=== PATIENT | male | born 1945 | race Caucasian/White ===

== ENCOUNTER 2017-03-06 11:31 | Inpatient (IN) | payer MEDICARE, MEDICAID ==
[2017-03-06 11:38] VITALS: BMI 29.2
--- NOTE | 2017-03-06 12:02 | ED PDOC ---
HPI: Chest Pain Time Seen by Provider: 03/06/17 11:38 Chief Complaint (Nursing): Chest Pain Chief Complaint (Provider): CP History Per: Patient History/Exam Limitations: no limitations Onset/Duration Of Symptoms: Hrs (2) Current Symptoms Are (Timing): Gone Now Quality: Burning Associated Symptoms: denies: Nausea, Dyspnea, Diaphoresis, Syncope Nitro Therapy Administered: 1, Per EMS, Complete Relief Additional Complaint(s): Pt reports bilateral chest pain, "burning", radiates to back, relieved with ASA and SL Nitro administered by EMS. Also c/o chronic cough productive of yellow sputum. Denies fever, nausea, weakness. Past Medical History Reviewed: Nursing Documentation, Vital Signs Vital Signs: Last Vital Signs Temp 98.0 F 03/06/17 11:36 Pulse 84 03/06/17 11:36 Resp 16 03/06/17 11:36 BP 104/53 L 03/06/17 11:36 Pulse Ox 98 03/06/17 14:53 - Medical History PMH: Alzheimer's Disease, Arthritis, Asthma, Back Problems, CAD, COPD, Diabetes , Fractures, HTN, Hyperlipidemia, Sleep Apnea Denies: CHF, Hepatitis, HIV, Hypercholesterolemia, Hypothyroidism, Chronic Kidney Disease, Rheumatoid Arthritis, Seizures, Sexually Transmitted Disease - Surgical History Surgical History: Back Surgery (T-spine), CABG - Family History Family History: States: Unknown Family Hx - Immunization History Hx Influenza Vaccination: Yes - Home Medications Home Medications: Ambulatory Orders Medication Instructions Recorded Atorvastatin [Lipitor] 20 mg PO HS 11/29/16 Bisoprolol [Zebeta] 5 mg PO DAILY 11/29/16 Docusate [Colace] 200 mg PO DAILY PRN 11/29/16 Ergocalciferol (Vitamin D2) 50,000 unit PO MO 11/29/16 [Vitamin D2] Fenofibrate [Tricor] 145 mg PO DAILY 11/29/16 Fluticasone Nasal [Flonase] 2 spray NANCY BID PRN 11/29/16 Fluticasone/Vilanterol [Breo 1 puff IH DAILY 11/29/16 Ellipta 200-25 Mcg INH] Furosemide [Lasix] 20 mg PO DAILY 11/29/16 Montelukast [Singulair] 10 mg PO HS 11/29/16 predniSONE [predniSONE Tab] 5 mg PO BID 11/29/16 Ciprofloxacin [Cipro] 250 mg PO Q12 #14 tab 12/06/16 Doxycycline Monohydrate 100 mg PO BID #14 tablet 12/06/16 - Allergies Allergies/Adverse Reactions: Allergies Allergy/AdvReac Type Severity Reaction Status Date / Time Penicillins Allergy Unknown RASH Verified 03/06/17 11:40 SHAYAN Risk Score for UA/NSTEMI - SHAYAN Risk Score Age > 64: YES 3 or more CAD Risk Factors: YES Known CAD (Stenosis greater than 50%): YES Aspirin use in past 7 days: YES Severe Angina: NO EKG ST changes greater than 0.5mm: NO Positive Cardiac Marker: NO SHAYAN Score: 4 Risk %: 20% Curb-65 Severity Score - CURB-65 Severity Score Confusion: No Bun >19mg/dl (>7mmol/L): No Respiratory Rate greater than/equal to 30: No Systolic BP <90 or Diastolic BP less than/equal 60mmHg: No Age >64: Yes Curb-65 Score: 1 Percentage 30-day mortality: 2.7% Wells Criteria for PE - Wells Criteria for Pulmonary Embolism Clinical Signs and Symptoms of DVT: No P.E is #1 Diagnosis, or Equally Likely: No Heart Rate >100: No Previous, objectively diagnosed PE or DVT: No Hemoptysis: No Malignancy w/treatment within 6 months, or palliative: No Total Score: 0 Review of Systems Constitutional: Negative for: Fever, Chills Cardiovascular: Positive for: Chest Pain. Negative for: Palpitations Respiratory: Positive for: Cough, Sputum (Yellow). Negative for: Shortness of Breath, Pleuritic Pain, Wheezing Gastrointestinal: Negative for: Nausea, Vomiting, Abdominal Pain, Diarrhea Musculoskeletal: Positive for: Back Pain. Negative for: Neck Pain Neurological: Negative for: Weakness, Numbness, Headache Physical Exam - Reviewed Nursing Documentation Reviewed: Yes Vital Signs Reviewed: Yes - Physical Exam Appears: Positive for: Well, No Acute Distress Skin: Positive for: Normal Color, Warm, Dry Neck: Positive for: Normal Cardiovascular/Chest: Positive for: Regular Rate, Rhythm Respiratory: Positive for: Rales (R base). Negative for: Decreased Breath Sounds, Accessory Muscle Use, Stridor, Wheezing, Respiratory Distress Gastrointestinal/Abdominal: Positive for: Normal Exam Back: Positive for: Normal Inspection. 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 Negative for: Motor/Sensory Deficits, Facial Droop - Laboratory Results Result Diagrams: 03/06/17 12:35 03/06/17 12:35 - ECG Interpretation Of ECG: NSR @ 72, RBBB, TWI V3 (new). O2 Sat by Pulse Oximetry: 98 - Radiology X-Ray: Read By Radiologist (Bilateral interstitial infiltrates with minimal consolidation suggested at the left base. Findings appear to be unchanged from prior examination compatible chronic fibrosis. An acute component is not definitively excluded.) - Physician Consult Information Time Consulting Physican Contacted: 14:25 Physician Contacted: Geo Whitmore Outcome Of Conversation: Agrees with admission, recommends Lovenox, CT chest to r/o PE. Medical Decision Making Medical Decision Makin yo with bilateral chest pain. - labs - EKG - CXR Disposition - Clinical Impression Clinical Impression: Chest pain - Patient ED Disposition Is Patient to be Admitted: Yes - Disposition Disposition Time: 15:00 Condition: STABLE - Pt Status Changed To: Hospital Disposition Of: Inpatient - Admit Certification Admit to Inpatient:: After my assessment, the patient will require hospitalization for at least two midnights. This is because of the severity of symptoms shown, intensity of services needed, and/or the medical risk in this patient being treated as an outpatient. - POA Present On Arrival: None
[2017-03-06 12:45] LABS: BASO % 0.5 % (0.0-2.0); EOS % 0.4 % (0.0-4.0); HEMATOCRIT 33.4 % (35.0-51.0); LYMPH # 1.8 K/uL (1.0-4.3); LYMPH % 20.5 % (20.0-40.0); MEAN CELL VOLUME 92.7 fl (80.0-94.0); MEAN CORPUSCULAR HEMOGLOBIN 30.4 pg (27.0-31.0); MEAN CORPUSCULAR HGB CONC 32.8 g/dL (33.0-37.0); MEAN PLATELET VOLUME 8.3 fl (7.2-11.7); MONO # 0.6 K/uL (0.0-0.8); NEUT # 6.4 K/uL (1.8-7.0); NEUT % 71.6 % (50.0-75.0); NRBC % 0.1 % (0.0-0.0); RED CELL DISTRIBUTION WIDTH 17.6 % (11.5-14.5); WHITE BLOOD COUNT 8.9 K/uL (4.8-10.8)
[2017-03-06 12:56] LABS: ALB/GLOB RATIO 0.9 (1.0-2.1); ALKALINE PHOSPHATASE 44 U/L (38-126); ALT/SGPT 29 U/L (21-72); AST/SGOT 32 U/L (17-59); BILIRUBIN,TOTAL 0.3 mg/dl (0.2-1.3); BLOOD UREA NITROGEN 20 mg/dl (9-20); CALCIUM 9.3 mg/dL (8.4-10.2); CARBON DIOXIDE 29 mmol/L (22-30); CHLORIDE 102 mmol/L (98-107); GFR AFRICAN-AMERICAN > 60; GLUCOSE,RANDOM 109 mg/dL (75-110); POTASSIUM 3.8 MMOL/L (3.6-5.0); SODIUM 139 mmol/l (132-148); TOTAL PROTEIN 6.2 G/DL (6.3-8.2)
[2017-03-06 12:57] LABS: VENOUS BLOOD GAS BASE EXCESS 9.7 mmol/L (0.0-2.0); VENOUS BLOOD GAS PCO2 53 mmHg (40-60); VENOUS BLOOD PH 7.43 (7.32-7.43)
[2017-03-06 13:39] LABS: PARTIAL THROMBOPLASTIN TIME 29.4 SECONDS (23.3-32.5)
[2017-03-06] MEDS ORDERED: Enoxaparin 80 mg Syringe SC STA (14:21)
--- NOTE | 2017-03-06 14:32 | RAD ---
HISTORY: CP COMPARISON: 12/06/2016 FINDINGS: LUNGS: Bilateral interstitial infiltrates with minimal consolidation suggested at the left base. Findings appear to be unchanged from prior examination compatible chronic fibrosis. PLEURA: No significant pleural effusion identified, no pneumothorax apparent. CARDIOVASCULAR: Normal. OSSEOUS STRUCTURES: No significant abnormalities. VISUALIZED UPPER ABDOMEN: Normal. OTHER FINDINGS: Status post spinal surgery. IMPRESSION: Bilateral interstitial infiltrates with minimal consolidation suggested at the left base. Findings appear to be unchanged from prior examination compatible chronic fibrosis. An acute component is not definitively excluded.
[2017-03-06] MEDS ORDERED: Enoxaparin 40 mg Syringe SC SCH (15:45)
[2017-03-06] MEDS ORDERED: Sodium Chloride 0.9% 100 ML ONE (16:15)
[2017-03-06] MEDS ORDERED: Iodixanol 320 MG/ML 100 ML BOTTLE IV ONE (16:15)
[2017-03-06 17:02] LABS: RBC URINE 4 /hpf (0-3); URINE BACTERIA RARE (<OCC); URINE BILIRUBIN NEGATIVE (NEGATIVE); URINE BLOOD NEGATIVE (NEGATIVE); URINE COLOR YELLOW (YELLOW); URINE GLUCOSE (UA) NEG (Normal); URINE KETONE NEGATIVE (NEGATIVE); URINE LEUKOCYTE ESTERASE NEG Leu/uL (Negative); URINE PROTEIN 30 mg/dL (NEGATIVE); URINE UROBILINOGEN 0.2-1.0 mg/dL (0.2-1.0); WBC URINE 5 /hpf (0-5)
--- NOTE | 2017-03-06 17:02 | CT ---
PROCEDURE: CT Chest with contrast (Pulmonary Angiogram) HISTORY: CP COMPARISON: None available. TECHNIQUE: Axial computed tomography images were obtained of the chest in the pulmonary arterial phase of enhancement. Coronal and sagittal reformatted images were created and reviewed. Intravenous contrast dose: Radiation dose: Total exam DLP = mGy-cm. This CT exam was performed using one or more of the following dose reduction techniques: Automated exposure control, adjustment of the mA and/or kV according to patient size, and/or use of iterative reconstruction technique. Intravenous contrast dose: 100 cc of Omnipaque 300 Radiation dose: Total exam DLP = 621 mGy-cm. FINDINGS: PULMONARY ARTERIES: Unremarkable. No pulmonary embolism. AORTA: No acute findings. No thoracic aortic aneurysm. LUNGS: Small bibasilar infiltrates, right greater than left. Diffuse bilateral interstitial fibrotic change. Elevated right hemidiaphragm. PLEURAL SPACES: Unremarkable. No effusion or pneuomothorax. HEART: Unremarkable. No cardiomegaly. No significant pericardial effusion. LYMPH NODES: No lymphadenopathy. BONES, CHEST WALL: Unremarkable. No fracture or destructive lesion OTHER FINDINGS: Unremarkable. IMPRESSION: Small bibasilar infiltrates. No evidence of pulmonary embolism.
[2017-03-06] MEDS ORDERED: LACTULOSE PO PRN (23:26)
[2017-03-07] MEDS ORDERED: Patient's Own Med (Fluticasone/Vilanterol [Breo Ellipta 200-25 Mcg Inh] 1 PUFF) IH SCH (09:00)
[2017-03-07] MEDS: Insulin Lispro (humaLOG) 100 Units/ml Inj SC SCH ×2 (09:06→17:02)
[2017-03-07] MEDS: Fluticasone-Salmeterol 250-50mcg Diskus IH SCH ×2 (09:08→21:20)
[2017-03-07] MEDS: Lidocaine 5% Patch TD SCH (09:10)
[2017-03-07] MEDS: Enoxaparin 80 mg Syringe SC SCH ×2 (10:16→21:00)
[2017-03-07] MEDS: levoFLOXacin 500 mg in D5W 500 MG/100 ML BAG IVPB SCH (12:37)
[2017-03-07] MEDS: Azithromycin 500 MG in Sodium Chloride 0.9% 250 ML IVPB SCH (12:38)
--- NOTE | 2017-03-07 14:39 | CON ---
DATE: 03/07/2017 REASON FOR CONSULTATION: Acute myocardial infarction. HISTORY OF PRESENT ILLNESS: The patient is 71 years old, male, originally from [place] who has a hist ory of chronic obstructive lung disease, history of coronary artery disease status post coronary bypa ss surgery in 2010 at [facility]. The patient also had thoracic spinal surgery about a y ear ago for spinal fracture. The patient presented because of retrosternal chest pain that is burnin g in nature, diffuse across the chest and radiating to the back. The patient is experiencing product milka cough. He denies any associated diaphoresis. The patient stated that chest pain was resolved af ter the ambulance gave the patient sublingual nitroglycerin. SOCIAL HISTORY: The patient is a former smoker and he is an occasional drinker. , lives with his . MEDICATIONS: Advair 1 puff twice a day, aspirin 81 mg once a day, Zithromax 500 mg intravenously david ly, lactulose 20 mg p.o. at bedtime, Flonase 2 sprays nasally b.i.d. p.r.n., Lasix 20 mg p.o. once a day, Levaquin 500 mg intravenously daily, Lipitor 20 mg once a day, Plavix 75 mg once a day, Lovenox 80 mg subcutaneously twice a day, Tricor 145 mg once a day, Singulair 10 mg at bedtime, Zebeta 5 mg o nce a day. REVIEW OF SYSTEMS: No fever or chills. No vomiting or diarrhea. No dizziness or syncope. The sigrid ent moves around with help of a walker. PHYSICAL EXAMINATION: GENERAL: The patient is an elderly male who does not appear to be in any acute distress. VITAL SIGNS: Blood pressure 96/56, heart rate 88, temperature 98.7, respiration 18. HEENT: Normocephalic. NECK: No JVD. CHEST: Bilateral rhonchi. HEART: S1, S2 regular. ABDOMEN: Soft. EXTREMITIES: No edema. EKG reveals sinus rhythm, right bundle branch block, consider old anterior wall myocardial infarction . LABORATORY DATA: Hemoglobin and hematocrit 11 and 33.4. White count and platelet count are within n ormal limits. SMA-7 on admission was completely normal. Troponins were 0.051, 1.72 and 1.78. PT, P TT are within normal limits. Chest CT angio revealed no evidence of pulmonary embolus. Small bibasi lar infiltrate. Chest x-ray revealed prominent bronchovascular markings with mild cardiomegaly. ASSESSMENT: 1. Consider non-ST elevation myocardial infarction. 2. Chronic obstructive lung disease. 3. History of spinal surgery for recent spinal fracture. 4. Hypertension and diabetes mellitus. RECOMMENDATIONS: Continue IV Zithromax and IV Levaquin. Continue aspirin, Plavix and therapeutic dyer bcutaneous Lovenox. Continue Lipitor and Tricor. Continue current bronchodilators. The case was di scussed with the patient. 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 Lopez. The patient declined this idea at this time; however, I asked him to think about it a s he thinks that he can go home now. The case was discussed earlier with Dr. Wood and will be furth er discussed later on. Geo Whitmore MD cc: [id number] TT: 03/07/2017 14:38:49 Confirmation # [id number] Dictation # [id number]
[2017-03-07] MEDS ORDERED: Enoxaparin 40 mg Syringe SC SCH (15:45)
--- NOTE | 2017-03-07 23:15 | HP ---
HISTORY OF PRESENT ILLNESS: This is a 71-year-old [place] male with history of multiple medical pr oblems including coronary artery disease status post coronary artery bypass graft about 7 years ago. The patient presented to Emergency Room with burning like chest pain for 1 day duration. The patien t was evaluated in the Emergency Room and admitted for further management. The patient admits that paul rome has also associated shortness of breath with his symptoms. The patient had no cardiac events since he had his coronary artery bypass graft. OTHER REVIEW OF SYSTEMS: The patient has bilateral knee pain and back pain and unsteadiness. SOCIAL HISTORY: Positive history of smoking more than 30 years. No ETOH or substance abuse. FAMILY HISTORY: Noncontributory. PAST MEDICAL HISTORY: Advanced rheumatoid arthritis, hypertension, coronary artery disease, type 2 d iabetes mellitus. HOME MEDICATIONS: Include Singulair 10 mg daily, Lasix 20 mg daily, prednisone 5 mg twice a day, fe nofibrate 145 mg daily, ergocalciferol 50,000 units every week, bisoprolol 5 mg daily, Fosamax 70 mg every week. PHYSICAL EXAMINATION: GENERAL: The patient is not in any cardiopulmonary distress at the time of this examination. VITAL SIGNS: Blood pressure of 102/67, temperature 98.0, respiratory rate 20 and pulse is 81. HEENT: Pupils equal, reactive to light. Normal-appearing mucosa of the conjunctivae, oropharyngeal and nasal membrane mucosa. NECK: Supple, no JVD, no carotid bruit, no lymph node, no thyromegaly. CHEST AND LUNGS: Bilateral symmetrical expansion, good air exchange, no rales, no rhonchi. CARDIOVASCULAR: PMI not localized. S1, S2. No additional sounds. ABDOMEN: Normoactive bowel sounds, no tenderness, no organomegaly, no masses. EXTREMITIES: No cyanosis, no clubbing, no edema. CENTRAL NERVOUS SYSTEM: Alert, awake, oriented x 2. No neurological deficits could be appreciated. ASSESSMENT: 1. Chest pain with positive troponin for non-ST elevation myocardial infarction. 2. Rheumatoid arthritis. 3. Hypertension. PLAN: Continue current medications and cardiology consultation and follow recommendations and resume the patient's home medications. Continue aspirin and beta klever. Michaela Wood MD cc: [phone] TT: 03/07/2017 23:14:29 ln
[2017-03-07] MEDS ORDERED: Ergocalciferol 50,000 Intl Units Cap PO SCH (23:26)
[2017-03-08 06:36] LABS: HEMATOCRIT 30.6 % (35.0-51.0); MEAN CELL VOLUME 93.2 fl (80.0-94.0); MEAN CORPUSCULAR HEMOGLOBIN 30.2 pg (27.0-31.0); MEAN CORPUSCULAR HGB CONC 32.4 g/dL (33.0-37.0); RED CELL DISTRIBUTION WIDTH 17.8 % (11.5-14.5); WHITE BLOOD COUNT 7.8 K/uL (4.8-10.8)
[2017-03-08 06:50] LABS: BLOOD UREA NITROGEN 18 mg/dl (9-20); CALCIUM 8.9 mg/dL (8.4-10.2); CARBON DIOXIDE 30 mmol/L (22-30); CHLORIDE 101 mmol/L (98-107); GFR AFRICAN-AMERICAN > 60; GLUCOSE,RANDOM 86 mg/dL (75-110); POTASSIUM 4.1 MMOL/L (3.6-5.0); SODIUM 138 mmol/l (132-148)
--- NOTE | 2017-03-08 07:35 | CARD ---
APPROVED REPORT EKG Measurement Heart [id number] <Conclusion> Normal sinus rhythm Right bundle branch block Inferior infarct, age undetermined Abnormal ECG
[2017-03-08] MEDS: Insulin Lispro (humaLOG) 100 Units/ml Inj SC SCH ×2 (08:31→17:16)
[2017-03-08] MEDS: Fluticasone-Salmeterol 250-50mcg Diskus IH SCH ×2 (08:45→21:51)
[2017-03-08] MEDS: Lidocaine 5% Patch TD SCH (08:46)
[2017-03-08] MEDS: Enoxaparin 80 mg Syringe SC SCH ×2 (08:47→21:50)
[2017-03-08] MEDS: Azithromycin 500 MG in Sodium Chloride 0.9% 250 ML IVPB SCH (08:51)
[2017-03-08] MEDS: levoFLOXacin 500 mg in D5W 500 MG/100 ML BAG IVPB SCH (08:53)
--- NOTE | 2017-03-08 09:21 | PQF GENQUE ---
Dr. Wood, Diagnosis to go along with the use of levofloxacin: IV? OR: Other explanation of clinical finding ER note; hx. of COPD: Respiratory: Positive for: Cough, Sputum (Yellow); Negative for: Shortness of Breath, Pleuritic Pain, Wheezing Cardiology consult: diagnoses include: COPD levofloxacin IV ordered on 03/07/17 U/A: RBC , WBC, Squamous Epith Cells, Bacteria. Hyaline Casts Blood Culture: prelim: after 24 hours: no growth CXR: Impression: Bilateral interstitial infiltrates with minimal consolidation suggested at the left base. Findings appear to be unchanged from prior examination compatible chronic fibrosis. An acute component is not definitively exclud This form is a permanent part of the medical record Clarification of your documentation is requested to better reflect the severity of illness and intensity of treatment of your patient. Indicators present [] Specify: [] [] Specify: [] [] Specify: [] [] Specify: [] Location in the medical record that reflects the above clinical findings: [] Treatment Provided: [] PHYSICIAN'S RESPONSE Based on your medical judgment of the clinical indicators outlined above please clarify the following: [] Practitioner response [] If unable to determine, please check the box, sign and date. Present On Admission (POA) Indicator: [] Present at the time of admission [] Not present at the time of admission [] Clinically Undetermined In responding to this query, please exercise your independent professional judgment. The fact that a question is asked does not imply that any particular answer is desired or expected. Thank you for your clarification on this documentation. If you have any questions please call. Tamela Sotelo RN BSN ext. #[phone] COPD PNEUMONIA MTDD
--- NOTE | 2017-03-08 10:28 | CARD ---
APPROVED REPORT EXAM: Two-dimensional and M-mode echocardiogram with Doppler and color Doppler. Other Information Quality : GoodRhythm : NSR Technically limited study due to Limited Window INDICATION Chest Pain Surgery/Intervention CABD DIMENSIONS IVSd0.89 (0.7-1.1cm)LVDd3.65 (3.9-5.9cm) LVOT Diameter2.59 (1.8-2.4cm)PWd1.17 (0.7-1.1cm) IVSs1.23 (0.8-1.2cm)LVDs3.24 (2.5-4.0cm) FS (%) 11.3 %PWs1.36 (0.8-1.2cm) M-Mode DIMENSIONS Left Atrium (MM)4.49 (2.5-4.0cm)IVSd1.25 (0.7-1.1cm) Aortic Root3.79 (2.2-3.7cm)LVDd6.03 (4.0-5.6cm) Aortic Cusp Exc.1.95 (1.5-2.0cm)PWd1.07 (0.7-1.1cm) IVSs1.84 cmFS (%) 49 % LVDs3.05 (2.0-3.8cm)PWs1.65 cm Mitral Valve E/A ratio0.0 TDI E/Lateral E'0.0E/Medial E'0.0 LEFT VENTRICLE The left ventricle is normal size. There is normal left ventricular wall thickness. The left ventricular function is normal. The left ventricular ejection fraction is within the normal range. The Ejection Fraction is 65-70%. The left ventricular function is normal. The left ventricular ejection fraction is within the normal range. There is normal LV segmental wall motion. The left ventricular diastolic function is normal. No left ventricle thrombus noted on this study. There is no mass noted in the left ventricle. RIGHT VENTRICLE The right ventricle is normal size. There is normal right ventricular wall thickness. The right ventricular systolic function is normal. ATRIA The left atrium size is normal. The right atrium size is normal. The interatrial septum is intact with no evidence for an atrial septal defect. AORTIC VALVE The aortic valve is normal in structure and function. No aortic regurgitation is present. There is no aortic valvular stenosis. There is no aortic valvular vegetation. MITRAL VALVE The mitral valve is normal in structure and function. There is no evidence of mitral valve prolapse. There is no mitral valve stenosis. There is no mitral valve regurgitation noted. TRICUSPID VALVE The tricuspid valve is normal in structure and function. There is no tricuspid valve regurgitation noted. There is no tricuspid valve prolapse or vegetation. There is no tricuspid valve stenosis. PULMONIC VALVE The pulmonary valve is normal in structure and function. There is no pulmonic valvular regurgitation. There is no pulmonic valvular stenosis. GREAT VESSELS The aortic root is normal in size. The IVC is normal in size and collapses >50% with inspiration. PERICARDIAL EFFUSION The pericardium appears normal. There is no pleural effusion. <Conclusion> The left ventricle is normal size. The left ventricular function is normal. The left ventricular ejection fraction is within the normal range. The Ejection Fraction is 65-70%. e.
--- NOTE | 2017-03-08 13:49 | PN ---
DATE: 03/08/2017 The patient denied any chest pain. No reported ventricular arrhythmia. PHYSICAL EXAMINATION: VITAL SIGNS: Blood pressure 97/60, heart rate 76, temperature 97.8, respirations 18. HEENT: Normocephalic. NECK: No JVD. CHEST: Minimal rhonchi. HEART: S1, S2 regular. EXTREMITIES: No edema. LABORATORIES: Hemoglobin and hematocrit 9.9 and 30.6. White count and platelet count are within nor mal limit. Today's SMA-7 is entirely within normal limit. The latest troponin yesterday was 1.5. E chocardiograph study performed yesterday revealed ejection fraction in the range of 65% to 70%. ASSESSMENT: 1. Chest pain, consider non-ST elevation myocardial infarction. 2. Chronic obstructive lung disease. 3. History of recent ____ spine surgery. 4. Diabetes mellitus. RECOMMENDATIONS: Continue current aspirin, Plavix, Lipitor, Tricor and Zebeta therapy. The patient refused idea of cardiac catheterization and that was affirmed with the primary physician, Dr. Wood. Geo Whitmore MD cc: [id number] TT: 03/08/2017 13:48:09 Confirmation # [id number] Dictation # [id number]
[2017-03-09 08:13] VITALS: RESP 18
[2017-03-09] MEDS: Insulin Lispro (humaLOG) 100 Units/ml Inj SC SCH (09:00)
[2017-03-09] MEDS: Azithromycin 500 MG in Sodium Chloride 0.9% 250 ML IVPB SCH (09:50)
[2017-03-09] MEDS: Lidocaine 5% Patch TD SCH (09:52)
[2017-03-09] MEDS: levoFLOXacin 500 mg in D5W 500 MG/100 ML BAG IVPB SCH (09:52)
[2017-03-09] MEDS: Enoxaparin 80 mg Syringe SC SCH (09:58)
[2017-03-09] MEDS: Fluticasone-Salmeterol 250-50mcg Diskus IH SCH (10:20)
[2017-03-09 12:37] VITALS: BP 97/61; PULSE 76; TEMP 97.9; O2SAT 97
--- NOTE | 2017-03-09 15:04 | PN ---
DATE: 03/09/2017 SUBJECTIVE: The patient denies any chest pain or shortness of breath. PHYSICAL EXAMINATION: VITAL SIGNS: Blood pressure 97/61, heart rate 76, temperature 97.9, respirations 18. HEENT: Normocephalic. NECK: No JVD. CHEST: Bilateral rhonchi. HEART: S1, S2 regular. EXTREMITIES: No edema. LABORATORIES: Today's troponin is 1.19 and today sugar is 120. ASSESSMENT: 1. Status post non-ST elevation myocardial infarction. 2. Coronary artery disease, status post coronary artery bypass surgery. 3. Chronic obstructive lung disease. 4. Diabetes mellitus. RECOMMENDATIONS: Continue current Lipitor at 20 mg once a day, Plavix 75 mg once a day, aspirin 81 m g once a day, Zebeta 5 mg once a day, Tricor 145 mg once a day. The patient still refuses cardiac ca theterization. The patient can be discharged on current medical management. Geo Whitmore MD cc: [id number] TT: 03/09/2017 15:03:36 Confirmation # [id number] Dictation # [id number]
[2017-03-13] MEDS ORDERED: ABATACEPT 125 MG SC SCH (09:00)
--- NOTE | 2017-03-14 21:30 | DS ---
REASON FOR ADMISSION: This is a 71-year-old [place] male with history of multiple medical problems who was admitted for non-ST elevation myocardial infarction. COURSE OF HOSPITALIZATION: The patient was admitted to telemetry floor and the troponin was elevated to 1.7. The patient had cardiology consultation done by Dr. Whitmore. The patient was offered car diac catheterization, but he refused. The patient was continued on medical therapy including double antiplatelet therapy and beta klever. The patient's troponin eventually came down and the patient w as free of chest pain and so was discharged home to follow up with Dr. Whitmore as well as with Dr. Wood in 1 week. FINAL DIAGNOSES: 1. Non-ST elevation myocardial infarction. 2. Advanced rheumatoid arthritis. 3. Hypertension. [facility] V[facility] Wood MD cc: [phone] TT: 03/14/2017 21:30:20 ks
== END 2017-03-09 15:15 | disposition home or self-care (01) | DRG 280 ==
LOC: H.ER 11:31 → H.ERHOLD 14:24 → H.TEL 18:04
PROVIDERS: ADMIT Internal Medicine; ATTEND Internal Medicine
DX: I21.4 Non-ST elevation (NSTEMI) myocardial infarction (principal); J18.9 Pneumonia, unspecified organism; J44.9 Chronic obstructive pulmonary disease, unspecified; G30.9 Alzheimer's disease, unspecified; F02.80 Dementia in other diseases classified elsewhere, unspecified severity, without behavioral disturbance, psychotic disturbance, mood disturbance, and anxiety; E11.9 Type 2 diabetes mellitus without complications; I25.10 Atherosclerotic heart disease of native coronary artery without angina pectoris; I10 Essential (primary) hypertension; E78.5 Hyperlipidemia, unspecified; G47.30 Sleep apnea, unspecified; J45.909 Unspecified asthma, uncomplicated; Z95.1 Presence of aortocoronary bypass graft; M06.9 Rheumatoid arthritis, unspecified; Z87.891 Personal history of nicotine dependence

== ENCOUNTER 2018-06-09 17:43 | Inpatient (IN) | payer OTHER, MEDICAID ==
[2018-06-09 18:44] VITALS: BMI 25.9
[2018-06-10] MEDS: Albuterol-Ipratrop 3 mg / 0.5 (3 ml) UD INH SCH ×7 (00:20→23:26)
[2018-06-10] MEDS ORDERED: ZEBETA 5 MG PO SCH (09:00)
[2018-06-10] MEDS ORDERED: PREDNISONE 5 MG PO SCH (09:00)
[2018-06-10] MEDS ORDERED: COLACE 100 MG PO SCH (09:00)
[2018-06-10] MEDS ORDERED: TRICOR 145 MG PO SCH (09:00)
[2018-06-10] MEDS: Pantoprazole 20 mg EC Tab PO SCH (09:20)
[2018-06-10] MEDS: Azithromycin 500 MG in Sodium Chloride 0.9% 250 ML IVPB SCH (10:38)
--- NOTE | 2018-06-10 22:20 | HP ---
Copied To: Michaela Wood MD Attending MD: Michaela Wood MD HISTORY OF PRESENT ILLNESS: This is a 72-year-old [place] male with history of multiple medical problems, was in [facility] for exacerbation of chronic obstructive pulmonary disease and pneumonia. Patient has advanced rheumatoid arthritis and osteoarthritis and he is very limited in his mobility with a walker. Patient was started on physical therapy and he was transferred to transitional care unit at [facility] for deconditioning, physical therapy, occupational therapy, and completion of his treatment. Other review of systems is generalized weakness. ALLERGIES: POSITIVE ALLERGY TO PENICILLIN. MEDICATIONS: Were reviewed as per MAR PAST MEDICAL HISTORY: Advanced rheumatoid arthritis, osteoarthritis, hypertension, and coronary artery disease, status post coronary artery bypass graft. SOCIAL HISTORY: Ex-smoker. No EtOH or substance abuse. FAMILY HISTORY: Noncontributory. PHYSICAL EXAMINATION: GENERAL: Patient is in bed, not in any cardiopulmonary distress at the time of this exam. VITAL SIGNS: With blood pressure 110/65, temperature 98, respiratory rate 20, and pulse 77. HEENT: Pupils equal and reactive to light. Normal appearing mucosa of the conjunctivae, oropharynx, and nasal membrane mucosa. NECK: Supple. No JVD. No carotid bruit. No lymph node. No thyromegaly. CHEST AND LUNGS: Bilateral symmetrical expansion. Decreased air entry both lower lung amos. CARDIOVASCULAR SYSTEM: PMI not localized. S1, S2. No additional sounds. ABDOMEN: Normoactive bowel sounds. No tenderness. No organomegaly. No masses. EXTREMITIES: No cyanosis. No clubbing. No edema. 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 Patient is moving all extremities equally. ASSESSMENT: Exacerbation of chronic obstructive pulmonary disease, pneumonia, advanced rheumatoid arthritis, osteoarthritis, coronary artery disease, and status post frequent falls. PLAN: Continue current medications, physical therapy, and occupational therapy. Taper down steroids. Michaela Wood MD
[2018-06-11] MEDS: Albuterol-Ipratrop 3 mg / 0.5 (3 ml) UD INH SCH ×6 (04:07→23:50)
[2018-06-11] MEDS: Pantoprazole 20 mg EC Tab PO SCH (08:37)
[2018-06-11] MEDS: Azithromycin 500 MG in Sodium Chloride 0.9% 250 ML IVPB SCH (09:55)
[2018-06-12] MEDS: Albuterol-Ipratrop 3 mg / 0.5 (3 ml) UD INH SCH ×6 (04:47→23:39)
[2018-06-12] MEDS: Pantoprazole 20 mg EC Tab PO SCH (10:00)
[2018-06-12] MEDS: Azithromycin 500 MG in Sodium Chloride 0.9% 250 ML IVPB SCH (10:06)
--- NOTE | 2018-06-12 12:39 | CP.PCM.CON ---
History of Present Illness - History of Present Illness History of Present Illness: Pulmonology saw the patient and examined on rounds with the residents this morning. Pt is an 72 yo M with a hx of COPD exacerbation, interstitial lung disease, Rheumatoid arthritis, HTN, s/p CABG transferred from [facility] [place] for COPD/ possible pneumonia, here to complete physical therapy. Patient is doing well this morning sitting in a wheelchair, states his SOB has improved, and still has a cough with whitish/yellow sputum he is currently on 4 L nasal cannula. Vital signs remained stable BP 101/49, he is afebrile. His O2 Sat is 90. On examination patient has shallow breathing, B/L rhonchi and crackles heard, negative for B/L wheezing, negative for Pneumonia, no bronchial breathing or egophony appreciated, diminishes breath sounds B/L. Continue PT, monitor SOB and COPD, continue to taper steroids. Past Patient History - Infectious Disease Hx of Infectious Diseases: None - Past Medical History & Family History Past Medical History?: Yes - Past Social History Smoking Status: Former Smoker - CARDIAC Hx Congestive Heart Failure: No Hx Hypercholesterolemia: Yes Hx Hypertension: Yes - PULMONARY Hx Chronic Obstructive Pulmonary Disease (COPD): Yes - NEUROLOGICAL Hx Alzheimer's Disease: Yes Hx Seizures: No - HEENT Hx HEENT Problems: No - RENAL Hx Chronic Kidney Disease: No - ENDOCRINE/METABOLIC Hx Hypothyroidism: No - HEMATOLOGICAL/ONCOLOGICAL Hx AIDS: No Hx Human Immunodeficiency Virus (HIV): No - INTEGUMENTARY Hx Dermatological Problems: No - MUSCULOSKELETAL/RHEUMATOLOGICAL Hx Falls: Yes - GASTROINTESTINAL Hx Gastrointestinal Disorders: No - GENITOURINARY/GYNECOLOGICAL Hx Sexually Transmitted Disorders: No - PSYCHIATRIC Hx Substance Use: No - SURGICAL HISTORY Hx Coronary Artery Bypass Graft: Yes (1999) Hx Coronary Stent: Yes - ANESTHESIA Hx Anesthesia: Yes Hx Anesthesia Reactions: No Hx Malignant Hyperthermia: No Meds Allergies/Adverse Reactions: Allergies Allergy/AdvReac Type Severity Reaction Status Date / Time Penicillins Allergy Unknown RASH Verified 06/09/18 19:57 - Medications Medications: Current Medications Acetaminophen (Tylenol 325mg Tab) 650 mg PO Q6 PRN PRN Reason: Headache Last Admin: 06/11/18 12:30 Dose: 650 mg Albuterol/Ipratropium (Duoneb 3 Mg/0.5 Mg (3 Ml) Ud) 3 ml INH RQ4 [facility] Last Admin: 06/12/18 11:09 Dose: 3 ml Atorvastatin Calcium (Lipitor) 20 mg PO [facility] Last Admin: 06/11/18 22:13 Dose: 20 mg Bisoprolol Fumarate (Zebeta) 5 mg PO DAILY [facility] Last Admin: 06/12/18 10:00 Dose: 5 mg Calcium Carbonate (Oscal) 500 mg PO DAILY [facility] Last Admin: 06/12/18 10:00 Dose: 500 mg Clopidogrel Bisulfate (Plavix) 75 mg PO DAILY [facility] Last Admin: 06/12/18 10:00 Dose: 75 mg Docusate Sodium (Colace) 100 mg PO DAILY [facility] Last Admin: 06/12/18 10:01 Dose: 100 mg Fenofibrate (Tricor) 145 mg PO DAILY [facility] Last Admin: 06/12/18 10:00 Dose: 145 mg Hydroxychloroquine Sulfate (Plaquenil) 200 mg PO BID [facility] PRN Reason: Protocol Last Admin: 06/12/18 10:00 Dose: 200 mg Azithromycin 500 mg/ Sodium (Chloride) 250 mls @ 250 mls/hr IVPB DAILY@0500 [facility] PRN Reason: Protocol Ceftriaxone Sodium 1 gm/ (Sodium Chloride) 100 mls @ 100 mls/hr IVPB Q12@0500, 1700 [facility] PRN Reason: Protocol Lactulose (Enulose) 20 gm PO Q4H PRN PRN Reason: Constipation Last Admin: 06/10/18 17:03 Dose: 20 gm Montelukast Sodium (Singulair) 10 mg PO [facility] Last Admin: 06/11/18 22:13 Dose: 10 mg Pantoprazole Sodium (Protonix Ec Tab) 20 mg PO DAILY [facility] Last Admin: 06/12/18 10:00 Dose: 20 mg Prednisone (Prednisone Tab) 40 mg PO DAILY [facility] Stop: 06/13/18 09:01 Last Admin: 06/12/18 10:01 Dose: 40 mg Prednisone (Prednisone Tab) 10 mg PO DAILY [facility] Tamsulosin HCl (Flomax) 0.4 mg PO DAILY [facility] Last Admin: 06/12/18 10:00 Dose: 0.4 mg Results - Vital Signs Recent Vital Signs: Last Vital Signs Temp 97.5 F L 06/12/18 09:04 Pulse 62 06/12/18 09:04 Resp 20 06/12/18 09:04 BP 101/49 L 06/12/18 09:04 Pulse Ox 90 L 06/12/18 09:04
--- NOTE | 2018-06-12 16:13 | PN ---
Copied To: Michaela Wood MD Attending MD: Michaela Wood MD DATE: 06/12/2018 SUBJECTIVE: The patient is seen today on 06/12/2018. He is not in any cardiopulmonary distress, and he is compliant to physical therapy and occupational therapy. PHYSICAL EXAMINATION: VITAL SIGNS: Blood pressure is 101/49, temperature 97.5, respiratory rate 20, and pulse 62. HEENT: Pupils equal and reactive to light. Normal-appearing mucosa of the conjunctivae, oropharynx and nasal membrane mucosa. NECK: Supple. No JVD. No carotid bruit. No lymph node. No thyromegaly. CHEST AND LUNGS: Bilateral symmetrical expansion. Good air exchange. No rales. No rhonchi. CARDIOVASCULAR SYSTEM: PMI not localized. S1 and S2. No additional sounds. ABDOMEN: Normoactive bowel sounds. No tenderness. No organomegaly. No masses. EXTREMITIES: No cyanosis, no clubbing, no edema. 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 Moves all extremities equally. ASSESSMENT: Chronic obstructive pulmonary disease, pneumonia, advanced rheumatoid arthritis, osteoarthritis, hypertension, coronary artery disease, status post coronary artery bypass graft. PLAN: Continue current medications and physical therapy and occupational therapy and follow recommendations of acid bleacher. Michaela Wood MD
[2018-06-13] MEDS: Albuterol-Ipratrop 3 mg / 0.5 (3 ml) UD INH SCH ×6 (04:56→23:12)
[2018-06-13] MEDS ORDERED: Azithromycin 500 MG in Sodium Chloride 0.9% 250 ML IVPB SCH (05:00)
[2018-06-13] MEDS: Pantoprazole 20 mg EC Tab PO SCH (09:30)
[2018-06-13] MEDS: Azithromycin 500 MG in Sodium Chloride 0.9% 250 ML IVPB SCH (18:09)
--- NOTE | 2018-06-13 21:05 | CP.PCM.PN ---
Subjective - Date & Time of Evaluation Date of Evaluation: 06/13/18 Time of Evaluation: 21:00 - Subjective Subjective: Seen on rounds earlier in the day with the resident. Patient continues to have BENÍTEZ with simple activity. He has satisfactory SpO2 while at rest on nasal canula at 3LPM. Dry, early crepitations are present in the lungs bilaterally, more posteriorly in the lower lobes. No audible wheezing or bronchial breathing noted. Recent CT chest was reviewed and he has had consolidation noted in the right lung base which has remained unchanged over the last few months. This may possibly represent organized pneumonia. He did expectorate clear mucoid sputum during the exam. We will review his present medical regimen. Objective - Vital Signs/Intake and Output Vital Signs (last 24 hours): Temp Pulse Resp BP Pulse Ox 97.0 F L 74 20 104/58 L 98 06/13/18 19:49 06/13/18 19:49 06/13/18 19:49 06/13/18 19:49 06/13/18 19:49 - Medications Medications: Current Medications Acetaminophen (Tylenol 325mg Tab) 650 mg PO Q6 PRN PRN Reason: Headache Last Admin: 06/13/18 20:43 Dose: 650 mg Albuterol/Ipratropium (Duoneb 3 Mg/0.5 Mg (3 Ml) Ud) 3 ml INH RQ4 [facility] Last Admin: 06/13/18 19:25 Dose: 3 ml Aspirin (Aspirin Chewable) 81 mg PO DAILY [facility] Last Admin: 06/13/18 09:31 Dose: 81 mg Atorvastatin Calcium (Lipitor) 20 mg PO HS [facility] Last Admin: 06/12/18 21:39 Dose: 20 mg Bisoprolol Fumarate (Zebeta) 5 mg PO DAILY [facility] Last Admin: 06/13/18 09:31 Dose: Not Given Calcium Carbonate (Oscal) 500 mg PO DAILY [facility] Last Admin: 06/13/18 09:28 Dose: 500 mg Docusate Sodium (Colace) 100 mg PO DAILY [facility] Last Admin: 06/13/18 09:31 Dose: 100 mg Fenofibrate (Tricor) 145 mg PO DAILY [facility] Last Admin: 06/13/18 09:31 Dose: 145 mg Hydroxychloroquine Sulfate (Plaquenil) 200 mg PO BID [facility] PRN Reason: Protocol Last Admin: 06/13/18 16:47 Dose: 200 mg Ceftriaxone Sodium 1 gm/ (Sodium Chloride) 100 mls @ 100 mls/hr IVPB Q12@0500, 1700 [facility] PRN Reason: Protocol Last Admin: 06/13/18 16:46 Dose: 100 mls/hr Azithromycin 500 mg/ Sodium (Chloride) 250 mls @ 250 mls/hr IVPB DAILY@1700 [facility] PRN Reason: Protocol Last Admin: 06/13/18 18:09 Dose: 250 mls/hr Lactulose (Enulose) 20 gm PO Q4H PRN PRN Reason: Constipation Last Admin: 06/10/18 17:03 Dose: 20 gm Montelukast Sodium (Singulair) 10 mg PO HS [facility] Last Admin: 06/12/18 21:39 Dose: 10 mg Pantoprazole Sodium (Protonix Ec Tab) 20 mg PO DAILY [facility] Last Admin: 06/13/18 09:30 Dose: 20 mg Prednisone (Prednisone Tab) 10 mg PO DAILY [facility] Last Admin: 06/13/18 09:30 Dose: 10 mg Tamsulosin HCl (Flomax) 0.4 mg PO DAILY [facility] Last Admin: 06/13/18 09:29 Dose: 0.4 mg
[2018-06-14] MEDS: Albuterol-Ipratrop 3 mg / 0.5 (3 ml) UD INH SCH ×5 (05:13→19:34)
[2018-06-14] MEDS: Pantoprazole 20 mg EC Tab PO SCH (10:05)
[2018-06-14 11:42] LABS: BASO % 0.2 % (0.0-2.0); HEMOGLOBIN 12.8 g/dL (12.0-18.0); LYMPH # 1.6 K/uL (1.0-4.3); LYMPH % 32.7 % (20.0-40.0); MEAN CELL VOLUME 106.6 fl (80.0-94.0); MEAN CORPUSCULAR HEMOGLOBIN 34.3 pg (27.0-31.0); MEAN CORPUSCULAR HGB CONC 32.2 g/dL (33.0-37.0); MEAN PLATELET VOLUME 10.1 fl (7.2-11.7); MONO # 0.5 K/uL (0.0-0.8); MONO % 10.9 % (0.0-10.0); NEUT # 2.7 K/uL (1.8-7.0); NEUT % 56.2 % (50.0-75.0); NRBC % 0.1 % (0.0-0.0); RBC 3.72 Mil/uL (4.40-5.90); RED CELL DISTRIBUTION WIDTH 17.2 % (11.5-14.5); WHITE BLOOD COUNT 4.8 K/uL (4.8-10.8)
[2018-06-14 11:54] LABS: BLOOD UREA NITROGEN 23 mg/dl (9-20); CALCIUM 8.9 mg/dL (8.4-10.2); GFR AFRICAN-AMERICAN > 60; GFR NON-AFRICAN AMERICAN > 60
--- NOTE | 2018-06-14 12:08 | CP.PCM.PN ---
Subjective - Date & Time of Evaluation Date of Evaluation: 06/14/18 Time of Evaluation: 09:00 - Subjective Subjective: Seen on rounds earlier in the day with the resident. Patient doing well this morning, states he feels well, Patient continues to have BENÍTEZ with simple activity. He has satisfactory SpO2 while at rest on nasal cannula at 3L. He does expectorate clear mucoid sputum. Patient Currently on Azithromycin, Rocephin and Prednisone 10mg. Patient BP slightly low 86/50 B klever was held yest. On Physical exam there are B/L bibasiler dry, early Rales. No audible wheezing or bronchial breathing noted. Recent CT chest was reviewed and he has had consolidation noted in the right lung base which has remained unchanged over the last few months. This may possibly represent organized pneumonia. We will discuss medical plan with Dr. Jennings to possibly stop the antibiotics, Increase the prednisone to 40mg and repeat CT in 1 month. Ordered CBC, BMP. Find out who Phlebotomy Lab Assistant is that currently follows pt to determine future medical management. Objective - Vital Signs/Intake and Output Vital Signs (last 24 hours): Temp Pulse Resp BP Pulse Ox 97.7 F 68 20 86/50 L 100 06/14/18 08:17 06/14/18 08:17 06/14/18 08:17 06/14/18 08:45 06/14/18 08:17 - Medications Medications: Current Medications Acetaminophen (Tylenol 325mg Tab) 650 mg PO Q6 PRN PRN Reason: Headache Last Admin: 06/13/18 20:43 Dose: 650 mg Albuterol/Ipratropium (Duoneb 3 Mg/0.5 Mg (3 Ml) Ud) 3 ml INH RQ4 [facility] Last Admin: 06/14/18 11:46 Dose: 3 ml Alendronate Sodium (Fosamax) 70 mg PO QWK [facility] Aspirin (Aspirin Chewable) 81 mg PO DAILY [facility] Last Admin: 06/14/18 10:09 Dose: 81 mg Atorvastatin Calcium (Lipitor) 20 mg PO HS [facility] Last Admin: 06/13/18 21:17 Dose: 20 mg Bisoprolol Fumarate (Zebeta) 5 mg PO DAILY [facility] Last Admin: 06/14/18 10:17 Dose: Not Given Calcium Carbonate (Oscal) 500 mg PO DAILY [facility] Last Admin: 06/14/18 10:05 Dose: 500 mg Docusate Sodium (Colace) 100 mg PO DAILY [facility] Last Admin: 06/14/18 10:04 Dose: 100 mg Fenofibrate (Tricor) 145 mg PO DAILY [facility] Last Admin: 06/14/18 10:03 Dose: 145 mg Ceftriaxone Sodium 1 gm/ (Sodium Chloride) 100 mls @ 100 mls/hr IVPB Q12@0500, 1700 [facility] PRN Reason: Protocol Last Admin: 06/14/18 05:21 Dose: 100 mls/hr Azithromycin 500 mg/ Sodium (Chloride) 250 mls @ 250 mls/hr IVPB DAILY@1700 [facility] PRN Reason: Protocol Last Admin: 06/13/18 18:09 Dose: 250 mls/hr Lactulose (Enulose) 20 gm PO Q4H PRN PRN Reason: Constipation Last Admin: 06/10/18 17:03 Dose: 20 gm Montelukast Sodium (Singulair) 10 mg PO HS [facility] Last Admin: 06/13/18 21:17 Dose: 10 mg Pantoprazole Sodium (Protonix Ec Tab) 20 mg PO DAILY [facility] Last Admin: 06/14/18 10:05 Dose: 20 mg Prednisone (Prednisone Tab) 10 mg PO DAILY [facility] Last Admin: 06/14/18 10:03 Dose: 10 mg Tamsulosin HCl (Flomax) 0.4 mg PO DAILY [facility] Last Admin: 06/14/18 10:04 Dose: 0.4 mg - Labs Labs: 06/14/18 11:36 06/14/18 11:36
[2018-06-14] MEDS: Azithromycin 500 MG in Sodium Chloride 0.9% 250 ML IVPB SCH (18:15)
[2018-06-15] MEDS: Albuterol-Ipratrop 3 mg / 0.5 (3 ml) UD INH SCH ×7 (00:05→23:25)
--- NOTE | 2018-06-15 03:20 | PN ---
Copied To: Michaela Wood MD Attending MD: Michaela Wood MD DATE: 06/14/2018 DAILY PROGRESS NOTE SUBJECTIVE: The patient is seen today, 06/14/2018. He is less short of breath. The patient is cooperative with physical therapy. PHYSICAL EXAMINATION: VITAL SIGNS: Blood pressure 98/59, temperature 97.9, respiratory rate 20, and pulse 70. HEENT: Pupils are equal and reactive to light. Normal-appearing mucosa of the conjunctivae, oropharynx and nasal membrane mucosa. NECK: Supple. No JVD. No carotid bruit. No lymph node. No thyromegaly. CHEST AND LUNGS: Bilateral symmetrical expansion. Good air exchange. No rhonchi. No rales. CARDIOVASCULAR SYSTEM: PMI not localized. S1, S2. No additional sounds. ABDOMEN: Normoactive bowel sounds. No tenderness. No organomegaly. No masses. EXTREMITIES: No cyanosis, no clubbing, no edema. Multiple deformities of advanced rheumatoid arthritis. CENTRAL NERVOUS SYSTEM: Alert, awake, oriented x2 and moves all extremities equally. ASSESSMENT: Exacerbation of chronic obstructive pulmonary disease, status post pneumonia; coronary artery disease, status post coronary artery bypass graft; advanced rheumatoid arthritis; osteoarthritis. PLAN: Continue current medications. Blood work was repeated today. We will discontinue antibiotics as the patient is on antibiotics for about 10 days. Steroids are being tapered. Michaela Wood MD
[2018-06-15] MEDS ORDERED: ALENDRONATE 70 MG TAB PO SCH (07:30)
[2018-06-15] MEDS: Pantoprazole 20 mg EC Tab PO SCH (10:16)
--- NOTE | 2018-06-15 11:48 | CP.PCM.PN ---
Subjective - Date & Time of Evaluation Date of Evaluation: 06/15/18 Time of Evaluation: 09:00 - Subjective Subjective: Patient doing well this morning, states he feels well, is able to tolerate PT today on nasal cannula at 3L. He does expectorate clear mucoid sputum. The patients current antibiotic regimen Azithromycin, Rocephin was discontinued, he remains on Prednisone 10mg. Patient BP controlled at 106/56. On Physical exam patient has mild cushingoid features, there are B/L bibasiler dry early medium Rales, Rhonchi heard, No audible wheezing or bronchial breathing noted. Recent CT chest was reviewed and he has had consolidation noted in the right lung base which has remained unchanged over the last few months. This may possibly represent organized pneumonia. Dr. Jennings is in agreement to stop the antibiotics. Continue prednisone to 10mg and repeat CT in 1 month. Continue PT Objective - Vital Signs/Intake and Output Vital Signs (last 24 hours): Temp Pulse Resp BP Pulse Ox 97.6 F 73 18 106/56 L 98 06/15/18 08:07 06/15/18 08:07 06/15/18 08:07 06/15/18 08:07 06/15/18 08:07 - Medications Medications: Current Medications Acetaminophen (Tylenol 325mg Tab) 650 mg PO Q6 PRN PRN Reason: Headache Last Admin: 06/15/18 10:15 Dose: 650 mg Albuterol/Ipratropium (Duoneb 3 Mg/0.5 Mg (3 Ml) Ud) 3 ml INH RQ4 [facility] Last Admin: 06/15/18 11:29 Dose: 3 ml Alendronate Sodium (Fosamax) 70 mg PO QWK [facility] Aspirin (Aspirin Chewable) 81 mg PO DAILY [facility] Last Admin: 06/15/18 10:19 Dose: 81 mg Atorvastatin Calcium (Lipitor) 20 mg PO HS [facility] Last Admin: 06/14/18 21:28 Dose: 20 mg Bisoprolol Fumarate (Zebeta) 5 mg PO DAILY [facility] Last Admin: 06/15/18 10:16 Dose: 5 mg Calcium Carbonate (Oscal) 500 mg PO DAILY [facility] Last Admin: 06/15/18 10:16 Dose: 500 mg Docusate Sodium (Colace) 100 mg PO DAILY [facility] Last Admin: 06/15/18 10:15 Dose: 100 mg Fenofibrate (Tricor) 145 mg PO DAILY [facility] Last Admin: 06/15/18 10:16 Dose: 145 mg Lactulose (Enulose) 20 gm PO Q4H PRN PRN Reason: Constipation Last Admin: 06/10/18 17:03 Dose: 20 gm Montelukast Sodium (Singulair) 10 mg PO HS [facility] Last Admin: 06/14/18 21:28 Dose: 10 mg Pantoprazole Sodium (Protonix Ec Tab) 20 mg PO DAILY [facility] Last Admin: 06/15/18 10:16 Dose: 20 mg Prednisone (Prednisone Tab) 10 mg PO DAILY [facility] Last Admin: 06/15/18 10:15 Dose: 10 mg Tamsulosin HCl (Flomax) 0.4 mg PO DAILY [facility] Last Admin: 06/15/18 10:16 Dose: 0.4 mg - Labs Labs: 06/14/18 11:36 06/14/18 11:36
[2018-06-16] MEDS: Albuterol-Ipratrop 3 mg / 0.5 (3 ml) UD INH SCH ×6 (03:52→23:00)
[2018-06-16] MEDS: Pantoprazole 20 mg EC Tab PO SCH (08:50)
--- NOTE | 2018-06-16 14:12 | CP.PCM.PN ---
Subjective - Date & Time of Evaluation Date of Evaluation: 06/16/18 Time of Evaluation: 14:10 - Subjective Subjective: The patient was seen on rounds today in transitional care along with the residents. He appears to be somewhat improved with regards to his respiratory status. Antibiotics have been discontinued and his prednisone will be increased to 40 mg daily for the next 3-4 weeks. He will be followed clinically and radiographically and his blood sugar will require constant monitoring. On physical examination he continues to have dry to medium early rales present in the lower lobes of both lungs posteriorly. There is no audible wheezing present. Air entry has appeared to improve since his admission to the transitional care unit. Objective - Vital Signs/Intake and Output Vital Signs (last 24 hours): Temp Pulse Resp BP Pulse Ox 97.7 F 68 18 105/53 L 100 06/16/18 08:27 06/16/18 08:27 06/16/18 08:27 06/16/18 08:27 06/16/18 08:27 - Medications Medications: Current Medications Acetaminophen (Tylenol 325mg Tab) 650 mg PO Q6 PRN PRN Reason: Headache Last Admin: 06/16/18 08:49 Dose: 650 mg Albuterol/Ipratropium (Duoneb 3 Mg/0.5 Mg (3 Ml) Ud) 3 ml INH RQ4 [facility] Last Admin: 06/16/18 11:07 Dose: 3 ml Alendronate Sodium (Fosamax) 70 mg PO QWK [facility] Aspirin (Aspirin Chewable) 81 mg PO DAILY [facility] Last Admin: 06/16/18 08:50 Dose: 81 mg Atorvastatin Calcium (Lipitor) 20 mg PO HS [facility] Last Admin: 06/15/18 21:00 Dose: 20 mg Bisoprolol Fumarate (Zebeta) 5 mg PO DAILY [facility] Last Admin: 06/16/18 08:49 Dose: 5 mg Calcium Carbonate (Oscal) 500 mg PO DAILY [facility] Last Admin: 06/16/18 08:49 Dose: 500 mg Docusate Sodium (Colace) 100 mg PO DAILY [facility] Last Admin: 06/16/18 08:50 Dose: 100 mg Fenofibrate (Tricor) 145 mg PO DAILY [facility] Last Admin: 06/16/18 08:49 Dose: 145 mg Lactulose (Enulose) 20 gm PO Q4H PRN PRN Reason: Constipation Last Admin: 06/10/18 17:03 Dose: 20 gm Montelukast Sodium (Singulair) 10 mg PO [facility] Last Admin: 06/15/18 21:00 Dose: 10 mg Pantoprazole Sodium (Protonix Ec Tab) 20 mg PO DAILY [facility] Last Admin: 06/16/18 08:50 Dose: 20 mg Prednisone (Prednisone Tab) 40 mg PO DAILY [facility] Tamsulosin HCl (Flomax) 0.4 mg PO DAILY [facility] Last Admin: 06/16/18 08:50 Dose: 0.4 mg - Labs Labs: 06/14/18 11:36 06/14/18 11:36
[2018-06-17] MEDS: Albuterol-Ipratrop 3 mg / 0.5 (3 ml) UD INH SCH ×5 (05:01→19:10)
[2018-06-17] MEDS: Pantoprazole 20 mg EC Tab PO SCH (09:09)
--- NOTE | 2018-06-17 13:02 | CP.PCM.PN ---
Subjective - Date & Time of Evaluation Date of Evaluation: 06/17/18 Time of Evaluation: 13:02 - Subjective Subjective: Claims he is feeling 'a little better'. Has been started on prednisone 40MG POOD yesterday. Will maintain higher dose if tolerated and re-assess RLL consolidation. Vital signs have been stable and oxygenation is okay. Objective - Vital Signs/Intake and Output Vital Signs (last 24 hours): Temp Pulse Resp BP Pulse Ox 97 F L 69 20 90/60 L 89 L 06/17/18 08:38 06/17/18 08:38 06/17/18 08:38 06/17/18 09:00 06/17/18 08:38 - Medications Medications: Current Medications Acetaminophen (Tylenol 325mg Tab) 650 mg PO Q6 PRN PRN Reason: Headache Last Admin: 06/17/18 09:07 Dose: 650 mg Albuterol/Ipratropium (Duoneb 3 Mg/0.5 Mg (3 Ml) Ud) 3 ml INH RQ4 [facility] Last Admin: 06/17/18 12:30 Dose: 3 ml Alendronate Sodium (Fosamax) 70 mg PO QWK [facility] Aspirin (Aspirin Chewable) 81 mg PO DAILY [facility] Last Admin: 06/17/18 09:09 Dose: 81 mg Atorvastatin Calcium (Lipitor) 20 mg PO HS [facility] Last Admin: 06/16/18 21:20 Dose: 20 mg Bisoprolol Fumarate (Zebeta) 5 mg PO DAILY [facility] Last Admin: 06/17/18 09:16 Dose: Not Given Calcium Carbonate (Oscal) 500 mg PO DAILY [facility] Last Admin: 06/17/18 09:08 Dose: 500 mg Docusate Sodium (Colace) 100 mg PO DAILY [facility] Last Admin: 06/17/18 09:09 Dose: 100 mg Fenofibrate (Tricor) 145 mg PO DAILY [facility] Last Admin: 06/17/18 09:08 Dose: 145 mg Lactulose (Enulose) 20 gm PO Q4H PRN PRN Reason: Constipation Last Admin: 06/10/18 17:03 Dose: 20 gm Montelukast Sodium (Singulair) 10 mg PO HS [facility] Last Admin: 06/16/18 21:20 Dose: 10 mg Pantoprazole Sodium (Protonix Ec Tab) 20 mg PO DAILY [facility] Last Admin: 06/17/18 09:09 Dose: 20 mg Prednisone (Prednisone Tab) 40 mg PO DAILY [facility] Last Admin: 06/17/18 09:09 Dose: 40 mg Tamsulosin HCl (Flomax) 0.4 mg PO DAILY [facility] Last Admin: 06/17/18 09:09 Dose: 0.4 mg - Labs Labs: 06/14/18 11:36 06/14/18 11:36
[2018-06-18] MEDS: Albuterol-Ipratrop 3 mg / 0.5 (3 ml) UD INH SCH ×7 (00:45→23:04)
--- NOTE | 2018-06-18 03:47 | PN ---
Copied To: Michaela Wood MD Attending MD: Michaela Wood MD DATE: 06/17/2018 SUBJECTIVE: He is still having exertional shortness of breath. PHYSICAL EXAMINATION VITAL SIGNS: Blood pressure 111/67, temperature 98.1, respiratory rate 20, and pulse 71. HEENT: Pupils equal, reactive to light. Normal-appearing mucosa of the conjunctivae, oropharynx, and nasal membrane mucosa. NECK: Supple. No JVD. No carotid bruit. No lymph nodes. No thyromegaly. CHEST AND LUNGS: Bilateral symmetrical expansion. Good air exchange. Few scattered rhonchi. CARDIOVASCULAR: PMI not localized. S1, S2. No additional sounds. ABDOMEN: Normoactive bowel sounds. No tenderness. No organomegaly. No masses. EXTREMITIES: No cyanosis. No clubbing. No edema. 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 No neurological deficit could be appreciated. ASSESSMENT: 1. 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 2. Hypertension. 3. Advanced rheumatoid arthritis. 4. Osteoarthritis. 5. Exacerbation of chronic obstructive pulmonary disease. 6. Coronary artery disease, status post coronary artery bypass graft. PLAN: Follow recommendations of director peoplesoft. Discussed the patient's condition with Dr. Amaya who advised to give patient steroid therapeutic dose for 2 weeks more during which he can taper off. Michaela Wood MD
[2018-06-18] MEDS: Pantoprazole 20 mg EC Tab PO SCH (08:31)
[2018-06-18 20:34] VITALS: O2SAT 98
[2018-06-19] MEDS: Albuterol-Ipratrop 3 mg / 0.5 (3 ml) UD INH SCH ×4 (03:12→15:18)
[2018-06-19 07:42] LABS: ALB/GLOB RATIO 1.2 (1.0-2.1); ALBUMIN 2.8 g/dL (3.5-5.0); ALT/SGPT 47 U/L (21-72); AST/SGOT 35 U/L (17-59); BLOOD UREA NITROGEN 26 mg/dl (9-20); GFR AFRICAN-AMERICAN > 60; GFR NON-AFRICAN AMERICAN > 60; HEMOGLOBIN 11.1 g/dL (12.0-18.0); MEAN CELL VOLUME 105.6 fl (80.0-94.0); MEAN CORPUSCULAR HEMOGLOBIN 34.2 pg (27.0-31.0); MEAN CORPUSCULAR HGB CONC 32.3 g/dL (33.0-37.0); RBC 3.24 Mil/uL (4.40-5.90); RED CELL DISTRIBUTION WIDTH 16.6 % (11.5-14.5); WHITE BLOOD COUNT 3.8 K/uL (4.8-10.8)
[2018-06-19] MEDS: Pantoprazole 20 mg EC Tab PO SCH (08:36)
--- NOTE | 2018-06-19 12:19 | CP.PCM.PN ---
<Lisa Rodriguez - Last Filed: 06/19/18 12:18> Subjective - Date & Time of Evaluation Date of Evaluation: 06/19/18 Time of Evaluation: 09:00 - Subjective Subjective: Patient feels well this morning, states hes still experiencing SOB and is coughing up clear mucus no changes from previous complaint. Patient is on 3L NC with 97% O2 Sat. Still continuing PT tolerating well. Patient is still on Prednisone 40MG daily on Day 4, will remain on this course for 3-4 weeks, antibiotics were discontinued. Will maintain higher dose if tolerated and re- assess RLL consolidation. We will follow him clinically and radiographically and his blood sugar will require constant monitoring. On PE patient has dry to medium early rales present in the lower lobes of both lungs posteriorly. No wheezing. Continue to monitor improvements. Objective - Vital Signs/Intake and Output Vital Signs (last 24 hours): Temp Pulse Resp BP Pulse Ox 98.1 F 69 18 103/55 L 98 06/19/18 08:12 06/19/18 08:12 06/19/18 08:12 06/19/18 08:12 06/19/18 08:12 - Medications Medications: Current Medications Acetaminophen (Tylenol 325mg Tab) 650 mg PO Q6 PRN PRN Reason: Headache Last Admin: 06/19/18 08:34 Dose: 650 mg Albuterol/Ipratropium (Duoneb 3 Mg/0.5 Mg (3 Ml) Ud) 3 ml INH RQ4 [facility] Last Admin: 06/19/18 11:35 Dose: 3 ml Alendronate Sodium (Fosamax) 70 mg PO QWK [facility] Aspirin (Aspirin Chewable) 81 mg PO DAILY [facility] Last Admin: 06/19/18 08:36 Dose: 81 mg Atorvastatin Calcium (Lipitor) 20 mg PO HS [facility] Last Admin: 06/18/18 21:20 Dose: 20 mg Bisoprolol Fumarate (Zebeta) 5 mg PO DAILY [facility] Last Admin: 06/19/18 08:36 Dose: 5 mg Calcium Carbonate (Oscal) 500 mg PO DAILY [facility] Last Admin: 06/19/18 08:36 Dose: 500 mg Docusate Sodium (Colace) 100 mg PO DAILY [facility] Last Admin: 06/19/18 08:36 Dose: 100 mg Fenofibrate (Tricor) 145 mg PO DAILY [facility] Last Admin: 06/19/18 08:35 Dose: 145 mg Lactulose (Enulose) 20 gm PO Q4H PRN PRN Reason: Constipation Last Admin: 06/10/18 17:03 Dose: 20 gm Montelukast Sodium (Singulair) 10 mg PO HS [facility] Last Admin: 06/18/18 21:20 Dose: 10 mg Pantoprazole Sodium (Protonix Ec Tab) 20 mg PO DAILY [facility] Last Admin: 06/19/18 08:36 Dose: 20 mg Prednisone (Prednisone Tab) 40 mg PO DAILY [facility] Last Admin: 06/19/18 08:35 Dose: 40 mg Tamsulosin HCl (Flomax) 0.4 mg PO DAILY [facility] Last Admin: 06/19/18 08:35 Dose: 0.4 mg - Labs Labs: 06/19/18 06:55 06/19/18 06:55 <New Amaya - Last Filed: 06/19/18 14:14> Subjective - Subjective Subjective: Discharge is planned for today. Predenisone to continue 10MG tablets; 40MG daily for two weeks followed by 30MG daily for two weeks more, than 20 MG for two weeks, finally back on 10MG daily until changed by his primary physician. I am in agreement with the note entered into the EMR by the resident. Objective - Vital Signs/Intake and Output Vital Signs (last 24 hours): Temp Pulse Resp BP Pulse Ox 98.1 F 69 18 103/55 L 98 06/19/18 08:12 06/19/18 08:12 06/19/18 08:12 06/19/18 08:12 06/19/18 08:12 - Medications Medications: Current Medications Acetaminophen (Tylenol 325mg Tab) 650 mg PO Q6 PRN PRN Reason: Headache Last Admin: 06/19/18 08:34 Dose: 650 mg Albuterol/Ipratropium (Duoneb 3 Mg/0.5 Mg (3 Ml) Ud) 3 ml INH RQ4 [facility] Last Admin: 06/19/18 11:35 Dose: 3 ml Alendronate Sodium (Fosamax) 70 mg PO QWK [facility] Aspirin (Aspirin Chewable) 81 mg PO DAILY [facility] Last Admin: 06/19/18 08:36 Dose: 81 mg Atorvastatin Calcium (Lipitor) 20 mg PO HS [facility] Last Admin: 06/18/18 21:20 Dose: 20 mg Bisoprolol Fumarate (Zebeta) 5 mg PO DAILY [facility] Last Admin: 06/19/18 08:36 Dose: 5 mg Calcium Carbonate (Oscal) 500 mg PO DAILY [facility] Last Admin: 06/19/18 08:36 Dose: 500 mg Docusate Sodium (Colace) 100 mg PO DAILY [facility] Last Admin: 06/19/18 08:36 Dose: 100 mg Fenofibrate (Tricor) 145 mg PO DAILY [facility] Last Admin: 06/19/18 08:35 Dose: 145 mg Lactulose (Enulose) 20 gm PO Q4H PRN PRN Reason: Constipation Last Admin: 06/10/18 17:03 Dose: 20 gm Montelukast Sodium (Singulair) 10 mg PO [facility] Last Admin: 06/18/18 21:20 Dose: 10 mg Pantoprazole Sodium (Protonix Ec Tab) 20 mg PO DAILY [facility] Last Admin: 06/19/18 08:36 Dose: 20 mg Prednisone (Prednisone Tab) 40 mg PO DAILY [facility] Last Admin: 06/19/18 08:35 Dose: 40 mg Tamsulosin HCl (Flomax) 0.4 mg PO DAILY [facility] Last Admin: 06/19/18 08:35 Dose: 0.4 mg - Labs Labs: 06/19/18 06:55 06/19/18 06:55
[2018-06-19 15:47] VITALS: BP 99/60; PULSE 74; RESP 20; TEMP 97.7
--- NOTE | 2018-06-20 17:58 | DS ---
Copied To: Michaela Wood MD Attending MD: Michaela Wood MD REASON FOR ADMISSION: This is a 72-year-old Burmese male with history of multiple medical problems, who was admitted to transitional care unit for deconditioning and rehabilitation and completion of treatment. COURSE OF HOSPITALIZATION: The patient was admitted to transitional care unit at [facility]. The patient was continued on both his steroids as well as IV antibiotics for five days more. The patient had a pulmonary consult done by Dr. Amaya due to persistent upper respiratory symptoms and shortness of breath. Decision was to continue high dose steroids 40 mg for 15 days followed by 30 mg for 15 days, followed by 20 mg for 15 days, then 10 mg afterwards. The patient was also continued on his [place] medications while he was here in the transitional care unit. The patient was discharged in good spirit under stable condition to follow up with Dr. Wood. FINAL DIAGNOSES: 1. Exacerbation of chronic obstructive pulmonary disease. 2. Pneumonia. 3. Hypertension. 4. Coronary artery disease. 5. Advanced rheumatoid arthritis. 6. Osteoarthritis. Michaela Wood MD
== END 2018-06-19 16:30 | disposition home health service (06) | DRG 192 ==
LOC: H.TCU 18:44
PROVIDERS: ADMIT Internal Medicine; ATTEND Internal Medicine
PROC: F07Z9FZ Gait Training/Functional Ambulation Treatment using Assistive, Adaptive, Supportive or Protective Equipment (ICD-10-PCS; principal; 2018-06-09)
PROC: 3E0F73Z Introduction of Anti-inflammatory into Respiratory Tract, Via Natural or Artificial Opening (ICD-10-PCS; 2018-06-09)
PROC: F08Z4FZ Home Management Treatment using Assistive, Adaptive, Supportive or Protective Equipment (ICD-10-PCS; 2018-06-10)
DX: J44.1 Chronic obstructive pulmonary disease with (acute) exacerbation (principal); J84.89 Other specified interstitial pulmonary diseases; F02.80 Dementia in other diseases classified elsewhere, unspecified severity, without behavioral disturbance, psychotic disturbance, mood disturbance, and anxiety; G30.9 Alzheimer's disease, unspecified; I25.10 Atherosclerotic heart disease of native coronary artery without angina pectoris; I10 Essential (primary) hypertension; E78.00 Pure hypercholesterolemia, unspecified; M06.9 Rheumatoid arthritis, unspecified; M19.90 Unspecified osteoarthritis, unspecified site; R29.6 Repeated falls; Z87.01 Personal history of pneumonia (recurrent); Z95.1 Presence of aortocoronary bypass graft; Z95.5 Presence of coronary angioplasty implant and graft; Z91.81 History of falling; Z87.891 Personal history of nicotine dependence; Z88.0 Allergy status to penicillin

== ENCOUNTER 2018-09-08 22:40 | Emergency (ER) | payer MEDICARE, MEDICAID ==
[2018-09-08 22:40] VITALS: BMI 27.7
--- NOTE | 2018-09-08 23:53 | ED PDOC ---
HPI: Back Time Seen by Provider: 09/08/18 23:42 Chief Complaint (Nursing): Fever Chief Complaint (Provider): Back pain History Per: Patient, Family Additional Complaint(s): Pt reports bilateral back pain X 3 days, constant, worse with movement, took OTC pain med at home without relief, generalized weakness. Was evaluated @ [facility] on 09/05/18 for same. Denies trauma, urinary symptoms. Past Medical History Reviewed: Nursing Documentation, Vital Signs Vital Signs: Last Vital Signs Temp 98.8 F 09/08/18 22:43 Pulse 73 09/08/18 22:43 Resp 16 09/08/18 22:43 BP 104/64 09/08/18 22:43 Pulse Ox 95 09/08/18 22:43 - Medical History PMH: Alzheimer's Disease, Arthritis (BACK), Asthma, Back Problems, CAD, COPD, Diabetes, Fractures, HTN, Hypercholesterolemia, Hyperlipidemia, Sleep Apnea Denies: CHF, Hepatitis, HIV, Hypothyroidism, Chronic Kidney Disease, Rheumatoid Arthritis, Seizures, Sexually Transmitted Disease - Surgical History Surgical History: Back Surgery (T-spine), CABG (1999), Coronary Stent - Family History Family History: States: Unknown Family Hx - Immunization History Hx Tetanus Toxoid Vaccination: No Hx Influenza Vaccination: No Hx Pneumococcal Vaccination: Yes - Home Medications Home Medications: Ambulatory Orders Medication Instructions Recorded Atorvastatin [Lipitor] 20 mg PO HS 11/29/16 Montelukast [Singulair] 10 mg PO HS 11/29/16 Calcium Carbonate [Oscal] 500 mg PO DAILY 02/03/18 Colace 100 mg PO DAILY 02/03/18 Hydroxychloroquine Sulfate 200 mg PO BID 02/03/18 [Plaquenil] Tamsulosin [Flomax] 0.4 mg PO DAILY 02/03/18 Alendronate Sodium 70 mg PO QD7 06/03/18 Zebeta 5 mg PO DAILY 06/03/18 Acetaminophen [Tylenol 325mg tab] 650 mg PO Q6 PRN tab 06/09/18 Albuterol/Ipratropium [Duoneb 3 3 ml INH RQ4 neb 06/09/18 mg/0.5 mg (3 ml) UD] Pantoprazole [Protonix EC Tab] 20 mg PO DAILY ect 06/09/18 Fenofibrate Nanocrystallized 145 mg PO DAILY 09/05/18 [Tricor] Furosemide [Lasix] 20 mg PO DAILY 09/05/18 Ketorolac Tromethamine [Toradol] 10 mg PO Q8 PRN #30 tab 09/05/18 predniSONE [Prednisone] 5 mg PO DAILY 09/05/18 traMADol [Ultram] 50 mg PO TID #15 tab 09/05/18 - Allergies Allergies/Adverse Reactions: Allergies Allergy/AdvReac Type Severity Reaction Status Date / Time Penicillins Allergy Unknown RASH Verified 09/08/18 22:43 Review of Systems Constitutional: Negative for: Fever Cardiovascular: Negative for: Chest Pain, Palpitations Respiratory: Positive for: Shortness of Breath (Chronic). Negative for: Cough Gastrointestinal: Negative for: Nausea, Vomiting, Abdominal Pain, Diarrhea Genitourinary Male: Negative for: Dysuria, Hematuria Musculoskeletal: Positive for: Back Pain Skin: Negative for: Rash, Lesions Physical Exam - Reviewed Nursing Documentation Reviewed: Yes Vital Signs Reviewed: Yes - Physical Exam Appears: Positive for: Well, No Acute Distress Head Exam: Positive for: ATRAUMATIC, NORMAL INSPECTION Skin: Positive for: Normal Color, Warm, Dry Eye Exam: Positive for: Normal appearance, EOMI, PERRL Cardiovascular/Chest: Positive for: Regular Rate, Rhythm Respiratory: Positive for: Crackles (L basilar), Other (R CTA). Negative for: Respiratory Distress Gastrointestinal/Abdominal: Positive for: Normal Exam, Bowel Sounds, Soft. Negative for: Tenderness Back: Positive for: Decreased ROM, Other (TTP bilateral mid back). Negative for: L CVA Tenderness, R CVA Tenderness, Vertebral Tenderness Extremity: Positive for: Normal ROM Neurologic/Psych: Positive for: Alert, Oriented. Negative for: Motor/Sensory Deficits - ECG O2 Sat by Pulse Oximetry: 95 Medical Decision Making Medical Decision Makin yo male with bilateral back pain. - labs - EKG - CXR - Morphine Upon review of old notes, patient had CT chest/abd/pelvis on 09/05/18 which revealed old compression fractures. Disposition - Disposition Forms: [employer] ([employer])
--- NOTE | 2018-09-09 00:34 | ED PDOC ---
- Laboratory Results Result Diagrams: 09/09/18 00:20 09/09/18 00:20 - ECG O2 Sat by Pulse Oximetry: 95 Medical Decision Making Medical Decision Making: Time: 00:00 --Patient is endorsed to provider by Dr. Ferrari pending lab results and re- evaluation. Time: 412 --CXR Findings: The cardiac silhouette is moderately enlarged. Atherosclerotic, tortuous calcified aorta.There is mild central pulmonary venous congestion.There is bilateral peribronchial interstitial thickening suggestive of bronchitis. Interval appearance of mild right pleural effusion. Passive atelectatic airspace disease of the right lower lobe. Unremarkable thoracic spine fusion metallic hardware.There are changes of degenerative joint disease. Impression: Mild changes of congestive heart failure, increased. Perironchial interstitial edema/bronchitis, increased. Interval appearance of mild right pleural effusion with passive atelectatic airspace disease of the right lower lobe. Time: 509 --Labs reviewed: no significant clinical abnormality. Upon provider reevaluation, patient is medically stable and requires no further treatment in the ED at this time. Patient will be discharged home. Counseling was provided and all questions were answered regarding diagnosis. There is agreement to discharge plan. Return if symptoms persist or worsen. Clinical Impression: Back pain Scribe Attestation: Documented by Ninfa Nova, acting as a scribe for Jamshid Patricio MD. Provider Scribe Attestation: All medical record entries made by the Scribe were at my direction and personally dictated by me. I have reviewed the chart and agree that the record accurately reflects my personal performance of the history, physical exam, medical decision making, and the department course for this patient. I have also personally directed, reviewed, and agree with the discharge instructions and disposition. Disposition - Clinical Impression Clinical Impression: Back pain - POA Present On Arrival: None - Disposition Referrals: Michaela Wood MD [Staff Provider] - Disposition: Routine/Home Disposition Time: 05:10 Condition: STABLE Instructions: Low Back Pain in Adults Forms: [employer] ([employer])
[2018-09-09 00:45] LABS: BASO % 0.6 % (0.0-2.0); HEMOGLOBIN 12.2 g/dL (12.0-18.0); LYMPH # 0.5 K/uL (1.0-4.3); LYMPH % 20.7 % (20.0-40.0); MEAN CELL VOLUME 106.4 fl (80.0-94.0); MEAN CORPUSCULAR HEMOGLOBIN 33.5 pg (27.0-31.0); MEAN CORPUSCULAR HGB CONC 31.5 g/dL (33.0-37.0); MEAN PLATELET VOLUME 10.8 fl (7.2-11.7); MONO # 0.3 K/uL (0.0-0.8); MONO % 10.9 % (0.0-10.0); NEUT # 1.6 K/uL (1.8-7.0); NEUT % 67.8 % (50.0-75.0); NRBC % 0.2 % (0.0-0.0); RBC 3.63 Mil/uL (4.40-5.90); WHITE BLOOD COUNT 2.4 K/uL (4.8-10.8)
[2018-09-09 01:05] LABS: SQUAMOUS EPITHIAL 1 /hpf (0-5); URINE BACTERIA OCC (<OCC); URINE BILIRUBIN NEGATIVE (NEGATIVE); URINE BLOOD NEGATIVE (NEGATIVE); URINE CLARITY CLOUDY (Clear); URINE COLOR AMBER (YELLOW); URINE GLUCOSE (UA) NEG (Normal); URINE LEUKOCYTE ESTERASE NEG Leu/uL (Negative); URINE PROTEIN 30 mg/dL (NEGATIVE)
[2018-09-09 01:14] LABS: ALBUMIN 2.8 g/dL (3.5-5.0); ALT/SGPT 36 U/L (21-72); AST/SGOT 48 U/L (17-59); BLOOD UREA NITROGEN 29 mg/dl (9-20); GFR NON-AFRICAN AMERICAN > 60
[2018-09-09 01:37] LABS: INR 0.9; PARTIAL THROMBOPLASTIN TIME 37.7 Seconds (25.6-37.1); PROTHROMBIN TIME 10.5 Seconds (9.8-13.1)
[2018-09-09 04:18] VITALS: RESP 14
[2018-09-09 06:59] VITALS: BP 91/61; PULSE 55; TEMP 98.3; O2SAT 100
--- NOTE | 2018-09-09 10:50 | RAD ---
Date of service: 09/09/2018 HISTORY: Mid back pain COMPARISON: No prior. FINDINGS: LUNGS: Large right lower lobe pneumonia with diffuse bilateral interstitial infiltrates. PLEURA: No significant pleural effusion identified, no pneumothorax apparent. CARDIOVASCULAR: No aortic atherosclerotic calcification present. Normal cardiac size. No pulmonary vascular congestion. OSSEOUS STRUCTURES: Status post spinal surgery. VISUALIZED UPPER ABDOMEN: Normal. OTHER FINDINGS: None. IMPRESSION: Large right lower lobe pneumonia with diffuse bilateral interstitial infiltrates.
--- NOTE | 2018-09-09 18:13 | CARD ---
APPROVED REPORT Date of service: 09/09/2018 EKG Measurement Heart [id number] <Conclusion> Normal sinus rhythm Right bundle branch block, plus right ventricular hypertrophy Left posterior fascicular block Bifascicular block Abnormal ECG
== END 2018-09-09 07:00 | disposition home or self-care (01) ==
LOC: H.ER 22:40
DX: M54.9 Dorsalgia, unspecified (principal)
CPT/HCPCS: 71045; 80053; 81003; 82948; 85025; 85610; 85730; 87040; 93005; 96374; 99285; J2270

== ENCOUNTER 2018-10-14 17:22 | Inpatient (IN) | payer OTHER, MEDICAID ==
[2018-10-14 17:26] VITALS: BMI 23.6
[2018-10-14] MEDS: Albuterol-Ipratrop 3 mg / 0.5 (3 ml) UD INH PRN (17:55)
[2018-10-14] MEDS ORDERED: Lidocaine 5% Patch TD PRN (18:10)
[2018-10-14] MEDS ORDERED: MethylPREDNISolone 40 mg Vial IV SCH (18:15)
[2018-10-14] MEDS: Albuterol-Ipratrop 3 mg / 0.5 (3 ml) UD INH SCH (19:09)
[2018-10-14] MEDS: Acetylcysteine 20% Inhal Soln (4ml) INH SCH (19:10)
[2018-10-14] MEDS: Aztreonam 1 GM in Sodium Chloride 0.9% 100 ML IVPB SCH (21:29)
[2018-10-14] MEDS: MethylPREDNISolone 40 mg Vial IV SCH (23:12)
[2018-10-15] MEDS: Acetylcysteine 20% Inhal Soln (4ml) INH SCH ×4 (01:00→20:25)
[2018-10-15] MEDS ORDERED: Aztreonam 2 Gm Inj IVPB SCH (01:00)
[2018-10-15] MEDS: Albuterol-Ipratrop 3 mg / 0.5 (3 ml) UD INH SCH ×4 (01:00→20:26)
[2018-10-15] MEDS: Aztreonam 1 GM in Sodium Chloride 0.9% 100 ML IVPB SCH ×3 (06:12→21:46)
[2018-10-15] MEDS: Azithromycin 500 MG in Sodium Chloride 0.9% 250 ML IVPB SCH (08:25)
[2018-10-15 08:32] LABS: HEMOGLOBIN 10.6 g/dL (12.0-18.0); MEAN CELL VOLUME 103.6 fl (80.0-94.0); MEAN CORPUSCULAR HEMOGLOBIN 32.6 pg (27.0-31.0); MEAN CORPUSCULAR HGB CONC 31.4 g/dL (33.0-37.0); RBC 3.26 Mil/uL (4.40-5.90); RED CELL DISTRIBUTION WIDTH 16.5 % (11.5-14.5); WHITE BLOOD COUNT 2.7 K/uL (4.8-10.8)
[2018-10-15 08:53] LABS: ALB/GLOB RATIO 0.9 (1.0-2.1); ALBUMIN 2.5 g/dL (3.5-5.0); ALT/SGPT 36 U/L (21-72); AST/SGOT 33 U/L (17-59); BLOOD UREA NITROGEN 39 mg/dl (9-20); GFR NON-AFRICAN AMERICAN > 60
[2018-10-15] MEDS ORDERED: Pantoprazole 40 mg EC Tab PO PRN (09:00)
[2018-10-15] MEDS ORDERED: BISOPROLOL PO SCH (09:00)
[2018-10-15] MEDS: MethylPREDNISolone 40 mg Vial IV SCH ×2 (09:23→21:47)
[2018-10-15] MEDS: Albuterol-Ipratrop 3 mg / 0.5 (3 ml) UD INH PRN (17:28)
[2018-10-16] MEDS: Albuterol-Ipratrop 3 mg / 0.5 (3 ml) UD INH SCH ×4 (01:13→19:58)
[2018-10-16] MEDS: Acetylcysteine 20% Inhal Soln (4ml) INH SCH ×4 (01:13→19:58)
--- NOTE | 2018-10-16 02:51 | HP ---
HISTORY OF PRESENT ILLNESS: This is a 73-year-old Tristanian male with history of multiple medical problems, was transferred from acute care in [facility] to transitional care unit at [facility] for completion of IV antibiotic treatment as well as physical therapy. The patient was admitted for respiratory decompensation with shortness of breath and hypercapnic respiratory failure. The patient has been on BiPAP intermittently with alternating time of oxygen by nasal cannula. The patient was having cough with yellowish-green sputum for which he was started already on IV antibiotics and he is being given also IV steroids. REVIEW OF SYSTEMS: Other review of system revealed that the patient has neck pain that radiates to the occipital area as well as deformity of both of his hands and generalized weakness with exertional shortness of breath. ALLERGIES: Positive for PENICILLIN. MEDICATIONS: Reviewed and ordered as per MAR. SOCIAL HISTORY: Ex-smoker more than 30 years. No EtOH or substance abuse. FAMILY HISTORY: Noncontributory. PAST MEDICAL HISTORY: Coronary artery disease, status post coronary artery bypass graft; advanced rheumatoid arthritis with deformity of both of his hands; hypertension; type 2 diabetes mellitus; osteoarthritis; COPD. PHYSICAL EXAMINATION: GENERAL: The patient is in bed, not in any cardiopulmonary distress at the time of this examination. Tolerating oxygen by nasal cannula. VITAL SIGNS: Blood pressure 120/71, temperature 97.8, respiratory rate 18, and pulse 64. HEENT: Pupils equal, reactive to light. Normal appearing mucosa of the conjunctivae, oropharynx and nasal membrane mucosa. NECK: Supple. No JVD. No carotid bruit. No lymph node. No thyromegaly. CHEST: Lungs, bilateral symmetrical expansion. Few scattered rhonchi, both lung amos. CARDIOVASCULAR SYSTEM: PMI not localized. S1, S2. No additional sounds. Scar of sternotomy of previous coronary artery bypass graft. ABDOMEN: Normoactive bowel sounds. No tenderness. No organomegaly. No masses. EXTREMITIES: No cyanosis, no clubbing, no edema with deformity of both hands. 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 No neurological deficit could be appreciated. ASSESSMENT: 1. Chronic obstructive pulmonary disease exacerbation secondary to acute bronchitis. 2. Advanced rheumatoid arthritis. 3. Osteoarthritis. 4. Hypertension. 5. Coronary artery disease, status post coronary artery bypass graft. PLAN: Continue current bronchodilators and steroids, use BiPAP intermittently and nasal cannula, pulmonary consult and follow recommendations. [facility] MD [place] [facility] # [id number]
[2018-10-16] MEDS: Aztreonam 1 GM in Sodium Chloride 0.9% 100 ML IVPB SCH ×3 (05:48→21:11)
[2018-10-16] MEDS: Azithromycin 500 MG in Sodium Chloride 0.9% 250 ML IVPB SCH (08:41)
--- NOTE | 2018-10-16 09:24 | CP.PCM.CON ---
History of Present Illness - History of Present Illness History of Present Illness: This 73 year old male is known to me from previous admission to TCU. He suffers from ILD, advanced rheumatoid arthritis, hypertension, CAD, now here for continued medical treatment after hospitalization at [facility] for exacerbation of COPD with hypercapnic ventilatory failure and intractable cough. He has had a suspected RLL consolidation present for the last 6 months. He has been using BiPAP mask ventilation overnight because of his CO2 retention. He complains of persistent coughing with scant clear mucoid secretions being expectorated. Past Patient History - Infectious Disease Hx of Infectious Diseases: None - Past Medical History & Family History Past Medical History?: Yes - Past Social History Smoking Status: Former Smoker Chewing Tobacco Use: No Cigar Use: No Alcohol: None Drugs: Denies - CARDIAC Hx Hypercholesterolemia: Yes Hx Hypertension: Yes Other/Comment: CAD withbypass surgery - PULMONARY Hx Asthma: Yes Hx Chronic Obstructive Pulmonary Disease (COPD): Yes Hx Pneumonia: Yes Other/Comment: ILD, sleep apnea syndrome, pleural thickening - NEUROLOGICAL Hx Alzheimer's Disease: Yes Hx Dementia: Yes Hx Seizures: No - HEENT Hx HEENT Problems: No - RENAL Hx Chronic Kidney Disease: No - ENDOCRINE/METABOLIC Hx Diabetes Mellitus Type 2: Yes - HEMATOLOGICAL/ONCOLOGICAL Hx Human Immunodeficiency Virus (HIV): No - INTEGUMENTARY Hx Dermatological Problems: No - MUSCULOSKELETAL/RHEUMATOLOGICAL Hx Arthritis: Yes (BACK) Hx Falls: No Hx Fractures: Yes (left hip) Hx Herniated Disk: Yes (cervical spine) Hx Rheumatoid Arthritis: Yes Other/Comment: extensive degenerative spinal disease - GASTROINTESTINAL Hx Gastrointestinal Disorders: No - GENITOURINARY/GYNECOLOGICAL Hx Genitourinary Disorders: No - PSYCHIATRIC Hx Psychophysiologic Disorder: No Hx Substance Use: No - SURGICAL HISTORY Hx Coronary Artery Bypass Graft: Yes (1999) Hx Coronary Stent: Yes Hx Orthopedic Surgery: Yes (left hip fracture, thoracic spinal fixation) - ANESTHESIA Hx Anesthesia: Yes Hx Anesthesia Reactions: No Hx Malignant Hyperthermia: No Meds Allergies/Adverse Reactions: Allergies Allergy/AdvReac Type Severity Reaction Status Date / Time Penicillins Allergy Unknown RASH Verified 10/21/18 08:27 - Medications Medications: Current Medications Acetylcysteine (Acetylcysteine 20%) 2 ml INH RQ6 [facility] Last Admin: 10/16/18 08:13 Dose: 2 ml Albuterol/Ipratropium (Duoneb 3 Mg/0.5 Mg (3 Ml) Ud) 3 ml INH RQ6 PRN PRN Reason: Shortness of Breath Last Admin: 10/15/18 17:28 Dose: 3 ml Albuterol/Ipratropium (Duoneb 3 Mg/0.5 Mg (3 Ml) Ud) 3 ml INH RQ6 [facility] Last Admin: 10/16/18 08:13 Dose: 3 ml Atorvastatin Calcium (Lipitor) 20 mg PO HS [facility] Last Admin: 10/15/18 21:47 Dose: 20 mg Baclofen (Lioresal) 10 mg PO DAILY [facility] Last Admin: 10/16/18 08:40 Dose: 10 mg Bisoprolol Fumarate (Zebeta) 2.5 mg PO DAILY [facility] Last Admin: 10/16/18 08:41 Dose: 2.5 mg Calcium Carbonate (Oscal) 500 mg PO DAILY [facility] Last Admin: 10/16/18 08:40 Dose: 500 mg Clopidogrel Bisulfate (Plavix) 75 mg PO DAILY [facility] Last Admin: 10/16/18 08:40 Dose: 75 mg Cyanocobalamin (Vitamin B12 1000 Mcg/Ml Inj) 1,000 mcg IM DAILY [facility] Last Admin: 10/16/18 08:41 Dose: 1,000 mcg Docusate Sodium (Colace) 100 mg PO BID [facility] Last Admin: 10/16/18 08:39 Dose: 100 mg Fenofibrate (Tricor) 145 mg PO DAILY [facility] Last Admin: 10/16/18 08:40 Dose: 145 mg Furosemide (Lasix) 20 mg PO QOD [facility] Gabapentin (Neurontin) 300 mg PO BID [facility] Last Admin: 10/16/18 08:40 Dose: 300 mg Hydroxychloroquine Sulfate (Plaquenil) 200 mg PO BID [facility]; Protocol Last Admin: 10/16/18 08:40 Dose: 200 mg Aztreonam 1 gm/ Sodium (Chloride) 100 mls @ 100 mls/hr IVPB Q8H [facility] Last Admin: 10/16/18 05:48 Dose: 100 mls/hr Azithromycin 500 mg/ Sodium (Chloride) 250 mls @ 250 mls/hr IVPB DAILY [facility] Last Admin: 10/16/18 08:41 Dose: 250 mls/hr Lidocaine (Lidoderm) 1 ea TD DAILY PRN PRN Reason: Pain, Mild (1-3) Methylprednisolone (Solu-Medrol) 40 mg IV Q12H [facility] Last Admin: 12/09/18 21:47 Dose: 40 mg Montelukast Sodium (Singulair) 10 mg PO HS [facility] Last Admin: 10/15/18 21:47 Dose: 10 mg Pantoprazole Sodium (Protonix Ec Tab) 40 mg PO DAILY PRN PRN Reason: stomach pain Tamsulosin HCl (Flomax) 0.4 mg PO DAILY [facility] Last Admin: 10/16/18 08:39 Dose: 0.4 mg Tramadol HCl (Ultram) 50 mg PO TID PRN PRN Reason: Pain, moderate (4-7) Last Admin: 10/15/18 09:41 Dose: 50 mg Physical Exam - Additional Findings Additional findings: Slightly overweight male lying flat in bed, appears comfortable at rest, c ooperative. Flushed facies, mildly cushingoid. Neck supple, trachea midline, no cervical or supraclavicular nodes felt. Unable to assess for JVD, no cyanosis. No dullness on chest percussion anteriorly, no palpable axillary adenopathy. Breath sounds present bilaterally, no wheezes or bronchial breath sounds. Medium rales heard in lower lung amos in both lungs posteriorly. Scattered sonorous rhonchi in dependant regions of both lungs. Heart sounds are distant, rhythm is regular. Abdomen is soft and non-tender with bowel sounds present. Trace dependant edema , no cyanosis, no calf tenderness. 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 (2) Hypercapnic respiratory failure Status: Acute Priority: High Comment: Acute on chronic. (3) ILD (interstitial lung disease) Status: Chronic Priority: High (4) Sleep apnea, obstructive Status: Chronic Priority: High - Date & Time Date: 10/16/18 Time: 09:24
[2018-10-16] MEDS: MethylPREDNISolone 40 mg Vial IV SCH ×2 (09:50→21:17)
[2018-10-17] MEDS: Albuterol-Ipratrop 3 mg / 0.5 (3 ml) UD INH SCH ×4 (01:08→19:02)
[2018-10-17] MEDS: Acetylcysteine 20% Inhal Soln (4ml) INH SCH ×4 (01:08→19:02)
--- NOTE | 2018-10-17 01:27 | PN ---
DATE: 10/16/2018 SUBJECTIVE: The patient is seen today, 10/16/2018. He is not in any cardiopulmonary distress. OBJECTIVE: VITAL SIGNS: Blood pressure 104/69, temperature 98.5, respiratory rate 20, and pulse 82. HEENT: Pupils equal and reactive to light. Normal appearing mucosa of the conjunctivae, oropharynx, and nasal membrane mucosa. NECK: Supple. No JVD. No carotid bruit. No lymph node. No thyromegaly. CHEST AND LUNGS: Bilateral symmetrical expansion. Good air exchange. No rales, no rhonchi. CARDIOVASCULAR SYSTEM: PMI not localized. S1, S2. No additional sounds. ABDOMEN: Normoactive bowel sounds. No tenderness. No organomegaly. No masses. EXTREMITIES: No cyanosis, no clubbing, no edema. CENTRAL NERVOUS SYSTEM: Alert, awake, oriented x2; and moves all extremities equally. ASSESSMENT: Exacerbation of chronic obstructive pulmonary disease, hypercapnic respiratory failure, hypertension, advanced rheumatoid arthritis with deformity of both hands, osteoarthritis. PLAN: Continue current medications and follow pulmonary recommendations. Physical therapy. Oxygen/BiPAP as needed. [facility] MD [place]
[2018-10-17] MEDS: Aztreonam 1 GM in Sodium Chloride 0.9% 100 ML IVPB SCH ×3 (05:29→21:58)
[2018-10-17 06:12] LABS: HEMOGLOBIN 9.9 g/dL (12.0-18.0); MEAN CELL VOLUME 100.5 fl (80.0-94.0); MEAN CORPUSCULAR HEMOGLOBIN 32.3 pg (27.0-31.0); MEAN CORPUSCULAR HGB CONC 32.1 g/dL (33.0-37.0); RBC 3.07 Mil/uL (4.40-5.90); RED CELL DISTRIBUTION WIDTH 16.4 % (11.5-14.5); WHITE BLOOD COUNT 2.9 K/uL (4.8-10.8)
[2018-10-17 06:30] LABS: BLOOD UREA NITROGEN 33 mg/dl (9-20); CALCIUM 8.7 mg/dL (8.4-10.2); GFR NON-AFRICAN AMERICAN > 60
--- NOTE | 2018-10-17 09:27 | CP.PCM.PN ---
Subjective - Date & Time of Evaluation Date of Evaluation: 10/17/18 Time of Evaluation: 09:23 - Subjective Subjective: Seen on rounds in TCU this AM. Continues to have a congested cough with scant clear sputum. Receiving aerosol therapy and IV corticosteroids as well as Azactam and Azithromycin. Physical findings are essentially unchanged from the day prior. Medium early dry rales are present in the lower lobes, R>>L. No audible wheezes or bronchial breath sounds. Solumedrol reduced to 30MG Q12H. Other treatments remain unchanged. Objective - Vital Signs/Intake and Output Vital Signs (last 24 hours): Temp Pulse Resp BP Pulse Ox 97.3 F L 67 18 92/57 L 100 10/17/18 08:25 10/17/18 08:25 10/17/18 08:25 10/17/18 08:25 10/17/18 08:25 - Medications Medications: Current Medications Acetylcysteine (Acetylcysteine 20%) 2 ml INH RQ6 COUNTS INCLUDE 234 BEDS AT THE [facility] Last Admin: 10/17/18 07:20 Dose: 2 ml Albuterol/Ipratropium (Duoneb 3 Mg/0.5 Mg (3 Ml) Ud) 3 ml INH RQ6 PRN PRN Reason: Shortness of Breath Last Admin: 10/15/18 17:28 Dose: 3 ml Albuterol/Ipratropium (Duoneb 3 Mg/0.5 Mg (3 Ml) Ud) 3 ml INH RQ6 [facility] Last Admin: 10/17/18 07:20 Dose: 3 ml Atorvastatin Calcium (Lipitor) 20 mg PO HS COUNTS INCLUDE 234 BEDS AT THE [facility] Last Admin: 10/16/18 21:14 Dose: 20 mg Baclofen (Lioresal) 10 mg PO DAILY COUNTS INCLUDE 234 BEDS AT THE [facility] Last Admin: 10/16/18 08:40 Dose: 10 mg Benzonatate (Tessalon Perles) 100 mg PO Q8 PRN PRN Reason: Cough Last Admin: 10/17/18 00:26 Dose: 100 mg Bisoprolol Fumarate (Zebeta) 2.5 mg PO DAILY COUNTS INCLUDE 234 BEDS AT THE [facility] Last Admin: 10/16/18 08:41 Dose: 2.5 mg Calcium Carbonate (Oscal) 500 mg PO DAILY COUNTS INCLUDE 234 BEDS AT THE [facility] Last Admin: 10/16/18 08:40 Dose: 500 mg Clopidogrel Bisulfate (Plavix) 75 mg PO DAILY COUNTS INCLUDE 234 BEDS AT THE [facility] Last Admin: 10/16/18 08:40 Dose: 75 mg Cyanocobalamin (Vitamin B12 1000 Mcg/Ml Inj) 1,000 mcg IM DAILY COUNTS INCLUDE 234 BEDS AT THE [facility] Last Admin: 10/16/18 08:41 Dose: 1,000 mcg Docusate Sodium (Colace) 100 mg PO BID COUNTS INCLUDE 234 BEDS AT THE [facility] Last Admin: 10/16/18 16:17 Dose: 100 mg Fenofibrate (Tricor) 145 mg PO DAILY COUNTS INCLUDE 234 BEDS AT THE [facility] Last Admin: 10/16/18 08:40 Dose: 145 mg Furosemide (Lasix) 20 mg PO QOD COUNTS INCLUDE 234 BEDS AT THE [facility] Gabapentin (Neurontin) 300 mg PO BID COUNTS INCLUDE 234 BEDS AT THE [facility] Last Admin: 10/16/18 16:17 Dose: 300 mg Hydroxychloroquine Sulfate (Plaquenil) 200 mg PO BID COUNTS INCLUDE 234 BEDS AT THE [facility]; Protocol Last Admin: 10/16/18 16:17 Dose: 200 mg Aztreonam 1 gm/ Sodium (Chloride) 100 mls @ 100 mls/hr IVPB Q8H COUNTS INCLUDE 234 BEDS AT THE [facility] Last Admin: 10/17/18 05:29 Dose: 100 mls/hr Azithromycin 500 mg/ Sodium (Chloride) 250 mls @ 250 mls/hr IVPB DAILY COUNTS INCLUDE 234 BEDS AT THE [facility] Last Admin: 10/16/18 08:41 Dose: 250 mls/hr Methylprednisolone 30 mg/ (Sodium Chloride) 50 mls @ 100 mls/hr IV Q12 COUNTS INCLUDE 234 BEDS AT THE [facility] Lidocaine (Lidoderm) 1 ea TD DAILY PRN PRN Reason: Pain, Mild (1-3) Montelukast Sodium (Singulair) 10 mg PO HS COUNTS INCLUDE 234 BEDS AT THE [facility] Last Admin: 10/16/18 21:14 Dose: 10 mg Pantoprazole Sodium (Protonix Ec Tab) 40 mg PO DAILY PRN PRN Reason: stomach pain Tamsulosin HCl (Flomax) 0.4 mg PO DAILY COUNTS INCLUDE 234 BEDS AT THE [facility] Last Admin: 10/16/18 08:39 Dose: 0.4 mg Tramadol HCl (Ultram) 50 mg PO TID PRN PRN Reason: Pain, moderate (4-7) Last Admin: 10/16/18 21:15 Dose: 50 mg - Labs Labs: 10/17/18 05:45 10/17/18 05:45 Assessment and Plan (1) COPD exacerbation Status: Acute (2) Hypercapnic respiratory failure Status: Acute
[2018-10-17] MEDS: Azithromycin 500 MG in Sodium Chloride 0.9% 250 ML IVPB SCH (09:33)
[2018-10-17] MEDS: guaiFENesin DM 100 mg-10 mg/5 ml UD PO SCH ×2 (18:01→21:57)
[2018-10-17] MEDS ORDERED: Sod Polystyrene Sulf 15 gm/60 ml Susp PO ONE (20:29)
[2018-10-17] MEDS ORDERED: methylPREDNISolone 30 MG in Sodium Chloride 0.9% 50 ML IV SCH (21:00)
[2018-10-17] MEDS: MethylPREDNISolone 40 mg Vial IVP SCH (21:57)
--- NOTE | 2018-10-17 22:37 | PN ---
DATE: 10/17/2018 SUBJECTIVE: The patient is seen today, 10/17/2018. He still has exertional shortness of breath and cough. PHYSICAL EXAMINATION: VITAL SIGNS: Blood pressure 97/54, temperature 98.7, respiratory rate 20 and pulse 88. HEENT: Pupils equal, reactive to light. Normal appearing mucosa of the conjunctivae, oropharynx and nasal membrane mucosa. NECK: Supple. No JVD. No carotid bruit. No lymph node. No thyromegaly. CHEST AND LUNGS: Bilateral symmetrical expansion. Good air exchange. There are scattered rhonchi and bilateral basilar rales. CARDIOVASCULAR SYSTEM: PMI not localized. S1, S2. No additional sounds. ABDOMEN: Normoactive bowel sounds. No tenderness. No organomegaly. No masses. EXTREMITIES: No cyanosis, no clubbing, no edema. FARM APPRAISER: Alert, awake, oriented x1. No neurological deficit could be appreciated. ASSESSMENT: Hypercapnic respiratory failure, advanced rheumatoid arthritis, coronary artery disease status post coronary artery bypass graft, hypertension. PLAN: Continue current medications and taper steroids as tolerated and follow Pulmonary recommendations. Michaela Wood MD
[2018-10-18] MEDS: Albuterol-Ipratrop 3 mg / 0.5 (3 ml) UD INH SCH ×4 (01:13→19:36)
[2018-10-18] MEDS: Acetylcysteine 20% Inhal Soln (4ml) INH SCH ×4 (01:13→19:35)
[2018-10-18] MEDS: guaiFENesin DM 100 mg-10 mg/5 ml UD PO SCH ×4 (05:00→21:50)
[2018-10-18] MEDS: Aztreonam 1 GM in Sodium Chloride 0.9% 100 ML IVPB SCH ×3 (06:07→21:54)
[2018-10-18 07:04] LABS: BLOOD UREA NITROGEN 27 mg/dl (9-20); CALCIUM 8.6 mg/dL (8.4-10.2); GFR NON-AFRICAN AMERICAN > 60
[2018-10-18] MEDS: Azithromycin 500 MG in Sodium Chloride 0.9% 250 ML IVPB SCH (08:58)
[2018-10-18] MEDS: MethylPREDNISolone 40 mg Vial IVP SCH ×2 (08:59→21:53)
[2018-10-18] MEDS ORDERED: Sod Polystyrene Sulf 15 gm/60 ml Susp PO ONE (09:00)
[2018-10-19] MEDS: Albuterol-Ipratrop 3 mg / 0.5 (3 ml) UD INH SCH ×4 (01:01→20:05)
[2018-10-19] MEDS: Acetylcysteine 20% Inhal Soln (4ml) INH SCH ×4 (01:01→20:05)
[2018-10-19] MEDS: guaiFENesin DM 100 mg-10 mg/5 ml UD PO SCH (03:54)
[2018-10-19] MEDS: Aztreonam 1 GM in Sodium Chloride 0.9% 100 ML IVPB SCH ×3 (07:01→21:29)
[2018-10-19 07:32] LABS: ALB/GLOB RATIO 1.1 (1.0-2.1); ALT/SGPT 45 U/L (21-72); AST/SGOT 32 U/L (17-59); BLOOD UREA NITROGEN 25 mg/dl (9-20); CALCIUM 8.9 mg/dL (8.4-10.2); GFR NON-AFRICAN AMERICAN > 60
--- NOTE | 2018-10-19 08:03 | CP.PCM.PN ---
Subjective - Date & Time of Evaluation Date of Evaluation: 10/18/18 Time of Evaluation: 11:15 - Subjective Subjective: Continues to complain of cough. Current cough suppressant ineffective. Minimal mucoid sputum being expectorated. Participating in physical therapy. Objective - Vital Signs/Intake and Output Vital Signs (last 24 hours): Temp Pulse Resp BP Pulse Ox 98.7 F 80 20 97/57 L 90 L 10/18/18 19:54 10/19/18 05:00 10/18/18 19:54 10/18/18 19:54 10/18/18 19:54 - Medications Medications: Current Medications Acetylcysteine (Acetylcysteine 20%) 2 ml INH RQ6 [facility] Last Admin: 10/19/18 07:36 Dose: 2 ml Albuterol/Ipratropium (Duoneb 3 Mg/0.5 Mg (3 Ml) Ud) 3 ml INH RQ6 PRN PRN Reason: Shortness of Breath Last Admin: 10/15/18 17:28 Dose: 3 ml Albuterol/Ipratropium (Duoneb 3 Mg/0.5 Mg (3 Ml) Ud) 3 ml INH RQ6 [facility] Last Admin: 10/19/18 07:36 Dose: 3 ml Atorvastatin Calcium (Lipitor) 20 mg PO HS [facility] Last Admin: 10/18/18 21:50 Dose: 20 mg Baclofen (Lioresal) 10 mg PO DAILY [facility] Last Admin: 10/18/18 09:01 Dose: 10 mg Benzonatate (Tessalon Perles) 200 mg PO Q8 [facility] Bisoprolol Fumarate (Zebeta) 2.5 mg PO DAILY [facility] Last Admin: 10/18/18 09:01 Dose: 2.5 mg Calcium Carbonate (Oscal) 500 mg PO DAILY [facility] Last Admin: 10/18/18 09:01 Dose: 500 mg Clopidogrel Bisulfate (Plavix) 75 mg PO DAILY [facility] Last Admin: 10/18/18 09:00 Dose: 75 mg Cyanocobalamin (Vitamin B12 1000 Mcg/Ml Inj) 1,000 mcg IM DAILY [facility] Last Admin: 10/18/18 09:02 Dose: 1,000 mcg Docusate Sodium (Colace) 100 mg PO BID [facility] Last Admin: 10/18/18 16:46 Dose: 100 mg Fenofibrate (Tricor) 145 mg PO DAILY [facility] Last Admin: 10/18/18 09:00 Dose: 145 mg Furosemide (Lasix) 20 mg PO QOD [facility] Last Admin: 10/17/18 10:04 Dose: 20 mg Gabapentin (Neurontin) 300 mg PO BID [facility] Last Admin: 10/18/18 16:46 Dose: 300 mg Guaifenesin/Dextromethorphan (Robitussin Dm) 10 ml PO Q4 PRN PRN Reason: Cough Hydroxychloroquine Sulfate (Plaquenil) 200 mg PO BID [facility]; Protocol Last Admin: 10/18/18 16:47 Dose: 200 mg Aztreonam 1 gm/ Sodium (Chloride) 100 mls @ 100 mls/hr IVPB Q8H [facility] Last Admin: 10/19/18 07:01 Dose: 100 mls/hr Azithromycin 500 mg/ Sodium (Chloride) 250 mls @ 250 mls/hr IVPB DAILY [facility] Last Admin: 10/18/18 08:58 Dose: 250 mls/hr Lidocaine (Lidoderm) 1 ea TD DAILY PRN PRN Reason: Pain, Mild (1-3) Methylprednisolone (Solu-Medrol) 30 mg IVP Q12 [facility] Last Admin: 10/18/18 21:53 Dose: 30 mg Montelukast Sodium (Singulair) 10 mg PO HS [facility] Last Admin: 10/18/18 21:52 Dose: 10 mg Pantoprazole Sodium (Protonix Ec Tab) 40 mg PO DAILY PRN PRN Reason: stomach pain Tamsulosin HCl (Flomax) 0.4 mg PO DAILY [facility] Last Admin: 10/18/18 09:02 Dose: 0.4 mg Tramadol HCl (Ultram) 50 mg PO TID PRN PRN Reason: Pain, moderate (4-7) Last Admin: 10/16/18 21:15 Dose: 50 mg - Labs Labs: 10/17/18 05:45 10/19/18 06:50 Assessment and Plan (1) COPD exacerbation Status: Acute (2) Hypercapnic respiratory failure Status: Acute
[2018-10-19] MEDS: Azithromycin 500 MG in Sodium Chloride 0.9% 250 ML IVPB SCH (08:16)
[2018-10-19] MEDS: MethylPREDNISolone 40 mg Vial IVP SCH ×2 (08:17→21:30)
--- NOTE | 2018-10-19 08:58 | CP.PCM.PN ---
<Hansel Lewis - Last Filed: 10/19/18 09:23> Subjective - Date & Time of Evaluation Date of Evaluation: 10/19/18 Time of Evaluation: 09:23 - Subjective Subjective: Patient seen and examined at bedside this morning. There are no acute events overnight, NAD. Patient tolerating BiPap at night. Patient reports feeling a littel better and some improvement w/ breathing. Patient still complaining of cough. Patient participating in physical therapy. Objective - Vital Signs/Intake and Output Vital Signs (last 24 hours): Temp Pulse Resp BP Pulse Ox 97.7 F 64 20 97/61 L 93 L 10/19/18 08:09 10/19/18 08:09 10/19/18 08:09 10/19/18 08:09 10/19/18 08:09 - Medications Medications: Current Medications Acetylcysteine (Acetylcysteine 20%) 2 ml INH RQ6 [facility] Last Admin: 10/19/18 07:36 Dose: 2 ml Albuterol/Ipratropium (Duoneb 3 Mg/0.5 Mg (3 Ml) Ud) 3 ml INH RQ6 PRN PRN Reason: Shortness of Breath Last Admin: 10/15/18 17:28 Dose: 3 ml Albuterol/Ipratropium (Duoneb 3 Mg/0.5 Mg (3 Ml) Ud) 3 ml INH RQ6 [facility] Last Admin: 10/19/18 07:36 Dose: 3 ml Atorvastatin Calcium (Lipitor) 20 mg PO HS [facility] Last Admin: 10/18/18 21:50 Dose: 20 mg Baclofen (Lioresal) 10 mg PO DAILY [facility] Last Admin: 10/19/18 08:18 Dose: 10 mg Benzonatate (Tessalon Perles) 200 mg PO Q8 [facility] Bisoprolol Fumarate (Zebeta) 2.5 mg PO DAILY [facility] Last Admin: 10/19/18 08:19 Dose: 2.5 mg Calcium Carbonate (Oscal) 500 mg PO DAILY [facility] Last Admin: 10/19/18 08:18 Dose: 500 mg Clopidogrel Bisulfate (Plavix) 75 mg PO DAILY [facility] Last Admin: 10/19/18 08:18 Dose: 75 mg Cyanocobalamin (Vitamin B12 1000 Mcg/Ml Inj) 1,000 mcg IM DAILY [facility] Last Admin: 10/19/18 08:19 Dose: 1,000 mcg Docusate Sodium (Colace) 100 mg PO BID [facility] Last Admin: 10/19/18 08:17 Dose: 100 mg Fenofibrate (Tricor) 145 mg PO DAILY [facility] Last Admin: 10/19/18 08:18 Dose: 145 mg Furosemide (Lasix) 20 mg PO QOD [facility] Last Admin: 10/17/18 10:04 Dose: 20 mg Gabapentin (Neurontin) 300 mg PO BID [facility] Last Admin: 10/19/18 08:18 Dose: 300 mg Guaifenesin/Dextromethorphan (Robitussin Dm) 10 ml PO Q4 PRN PRN Reason: Cough Hydroxychloroquine Sulfate (Plaquenil) 200 mg PO BID [facility]; Protocol Last Admin: 10/19/18 08:18 Dose: 200 mg Aztreonam 1 gm/ Sodium (Chloride) 100 mls @ 100 mls/hr IVPB Q8H [facility] Last Admin: 10/19/18 07:01 Dose: 100 mls/hr Azithromycin 500 mg/ Sodium (Chloride) 250 mls @ 250 mls/hr IVPB DAILY [facility] Last Admin: 10/19/18 08:16 Dose: 250 mls/hr Lidocaine (Lidoderm) 1 ea TD DAILY PRN PRN Reason: Pain, Mild (1-3) Methylprednisolone (Solu-Medrol) 30 mg IVP Q12 [facility] Last Admin: 10/19/18 08:17 Dose: 30 mg Montelukast Sodium (Singulair) 10 mg PO HS [facility] Last Admin: 10/18/18 21:52 Dose: 10 mg Pantoprazole Sodium (Protonix Ec Tab) 40 mg PO DAILY PRN PRN Reason: stomach pain Tamsulosin HCl (Flomax) 0.4 mg PO DAILY [facility] Last Admin: 10/19/18 08:18 Dose: 0.4 mg Tramadol HCl (Ultram) 50 mg PO TID PRN PRN Reason: Pain, moderate (4-7) Last Admin: 10/16/18 21:15 Dose: 50 mg - Labs Labs: 10/17/18 05:45 10/19/18 06:50 - Constitutional Appears: Non-toxic, No Acute Distress - Head Exam Head Exam: ATRAUMATIC, NORMAL INSPECTION, NORMOCEPHALIC - Eye Exam Eye Exam: Normal appearance - ENT Exam ENT Exam: Mucous Membranes Moist - Respiratory Exam Respiratory Exam: Decreased Breath Sounds, Rales (medium, dry, early). absent: Accessory Muscle Use, Rhonchi, Wheezes, Respiratory Distress - Cardiovascular Exam Cardiovascular Exam: REGULAR RHYTHM - Extremities Exam Extremities Exam: Pedal Edema (trace bilateral). absent: Calf Tenderness - Neurological Exam Neurological Exam: Alert, Awake - Skin Skin Exam: Dry, Warm Assessment and Plan (1) COPD exacerbation Status: Acute (2) Hypercapnic respiratory failure Status: Acute (3) Cough Status: Acute - Assessment and Plan (Free Text) Assessment: 73 y/o man w/ pmh of COPD, heart failure, hyperlipidemia, HTN, sleep apnea, Alzheimer's Disease and rheumatoid arthritis is admitted to TCU for continued physical therapy. Patiglorian is participating w/ PT Plan: - afebrile, no tachycardia, BP stable, neutropenia - aztreonam 1 gm IV Q8h day 6 - azithromycin 500 mg IV daily day 5 - c/w duoneb Q6h scheduled and Q6h prn - increased tessalon to 200 mg PO Q8h - c/w robitussin DM PO Q4h prn - consider reducing lasix further due to metabolic alkalosis - c/w Bipap - monitor for acute changes <New Amaya - Last Filed: 10/20/18 09:39> Subjective - Subjective Subjective: SEEN AND EXAMINED TOGETHER WITH THE RESIDENT. CASE WAS DISCUSSED AND ALL LABS WERE REVIEWED. DIAGNOSIS AND PLAN OF CARE WERE FORMULATED. THE NOTE IN THE EMR IS ACCURATE ENTERED. Objective - Vital Signs/Intake and Output Vital Signs (last 24 hours): Temp Pulse Resp BP Pulse Ox 98.0 F 67 18 111/64 100 10/20/18 08:14 10/20/18 08:14 10/20/18 08:14 10/20/18 08:14 10/20/18 08:14 - Medications Medications: Current Medications Acetylcysteine (Acetylcysteine 20%) 2 ml INH RQ6 [facility] Last Admin: 10/20/18 07:22 Dose: 2 ml Albuterol/Ipratropium (Duoneb 3 Mg/0.5 Mg (3 Ml) Ud) 3 ml INH RQ6 PRN PRN Reason: Shortness of Breath Last Admin: 10/15/18 17:28 Dose: 3 ml Albuterol/Ipratropium (Duoneb 3 Mg/0.5 Mg (3 Ml) Ud) 3 ml INH RQ6 [facility] Last Admin: 10/20/18 07:22 Dose: 3 ml Atorvastatin Calcium (Lipitor) 20 mg PO HS [facility] Last Admin: 10/19/18 21:30 Dose: 20 mg Baclofen (Lioresal) 10 mg PO DAILY [facility] Last Admin: 10/20/18 08:31 Dose: 10 mg Benzonatate (Tessalon Perles) 200 mg PO Q8 [facility] Last Admin: 10/20/18 08:30 Dose: 200 mg Bisoprolol Fumarate (Zebeta) 2.5 mg PO DAILY [facility] Last Admin: 10/20/18 08:29 Dose: 2.5 mg Calcium Carbonate (Oscal) 500 mg PO DAILY [facility] Last Admin: 10/20/18 08:31 Dose: 500 mg Clopidogrel Bisulfate (Plavix) 75 mg PO DAILY [facility] Last Admin: 10/20/18 08:29 Dose: 75 mg Cyanocobalamin (Vitamin B12 1000 Mcg/Ml Inj) 1,000 mcg IM DAILY [facility] Last Admin: 10/20/18 08:29 Dose: 1,000 mcg Docusate Sodium (Colace) 100 mg PO BID [facility] Last Admin: 10/20/18 08:28 Dose: 100 mg Fenofibrate (Tricor) 145 mg PO DAILY [facility] Last Admin: 10/20/18 08:34 Dose: 145 mg Furosemide (Lasix) 20 mg PO QOD [facility] Last Admin: 10/17/18 10:04 Dose: 20 mg Gabapentin (Neurontin) 300 mg PO BID [facility] Last Admin: 10/20/18 08:31 Dose: 300 mg Guaifenesin/Dextromethorphan (Robitussin Dm) 10 ml PO Q4 PRN PRN Reason: Cough Last Admin: 10/19/18 22:12 Dose: 10 ml Lidocaine (Lidoderm) 1 ea TD DAILY PRN PRN Reason: Pain, Mild (1-3) Methylprednisolone (Solu-Medrol) 30 mg IVP Q12 [facility] Last Admin: 10/20/18 08:28 Dose: 30 mg Montelukast Sodium (Singulair) 10 mg PO HS [facility] Last Admin: 10/19/18 21:30 Dose: 10 mg Pantoprazole Sodium (Protonix Ec Tab) 40 mg PO DAILY PRN PRN Reason: stomach pain Tamsulosin HCl (Flomax) 0.4 mg PO DAILY [facility] Last Admin: 10/20/18 08:31 Dose: 0.4 mg Tramadol HCl (Ultram) 50 mg PO TID PRN PRN Reason: Pain, moderate (4-7) Last Admin: 10/16/18 21:15 Dose: 50 mg - Labs Labs: 10/17/18 05:45 10/19/18 06:50 Assessment and Plan (1) COPD exacerbation Status: Acute (2) Hypercapnic respiratory failure Status: Acute
[2018-10-19] MEDS: guaiFENesin DM 200 mg-20 mg/10 ml UD PO PRN ×2 (09:57→22:12)
[2018-10-20] MEDS: Acetylcysteine 20% Inhal Soln (4ml) INH SCH ×4 (01:00→19:13)
[2018-10-20] MEDS: Albuterol-Ipratrop 3 mg / 0.5 (3 ml) UD INH SCH ×4 (01:00→19:12)
[2018-10-20] MEDS: MethylPREDNISolone 40 mg Vial IVP SCH (08:28)
[2018-10-20] MEDS: Azithromycin 500 MG in Sodium Chloride 0.9% 250 ML IVPB SCH (08:36)
--- NOTE | 2018-10-20 14:57 | CP.PCM.PN ---
Subjective - Date & Time of Evaluation Date of Evaluation: 10/20/18 Time of Evaluation: 14:55 - Subjective Subjective: Seen on rounds in the afternoon while in the gym. He continues to complain of persistent cough despite the use of when necessary dextromethorphan and every 8 hour benzonatate. His vital signs remained stable. Rhonchi are auscultated bilaterally in dependent zones of both lungs. No audible wheezing. We'll trial scheduled dextromethorphan 60 mg every 12 hours as well as benzonatate 200 mg every 8 hours and increase gabapentin to 300 mg 3 times daily. Objective - Vital Signs/Intake and Output Vital Signs (last 24 hours): Temp Pulse Resp BP Pulse Ox 98.0 F 67 18 111/64 100 10/20/18 08:14 10/20/18 08:14 10/20/18 08:14 10/20/18 08:14 10/20/18 08:14 - Medications Medications: Current Medications Acetylcysteine (Acetylcysteine 20%) 2 ml INH RQ6 [facility] Last Admin: 10/20/18 13:21 Dose: 2 ml Albuterol/Ipratropium (Duoneb 3 Mg/0.5 Mg (3 Ml) Ud) 3 ml INH RQ6 PRN PRN Reason: Shortness of Breath Last Admin: 10/15/18 17:28 Dose: 3 ml Albuterol/Ipratropium (Duoneb 3 Mg/0.5 Mg (3 Ml) Ud) 3 ml INH RQ6 [facility] Last Admin: 10/20/18 07:22 Dose: 3 ml Atorvastatin Calcium (Lipitor) 20 mg PO HS [facility] Last Admin: 10/19/18 21:30 Dose: 20 mg Baclofen (Lioresal) 10 mg PO DAILY [facility] Last Admin: 10/20/18 08:31 Dose: 10 mg Benzonatate (Tessalon Perles) 200 mg PO Q8 [facility] Last Admin: 10/20/18 08:30 Dose: 200 mg Bisoprolol Fumarate (Zebeta) 2.5 mg PO DAILY [facility] Last Admin: 10/20/18 08:29 Dose: 2.5 mg Calcium Carbonate (Oscal) 500 mg PO DAILY [facility] Last Admin: 10/20/18 08:31 Dose: 500 mg Clopidogrel Bisulfate (Plavix) 75 mg PO DAILY [facility] Last Admin: 12/14/18 08:29 Dose: 75 mg Cyanocobalamin (Vitamin B12 1000 Mcg/Ml Inj) 1,000 mcg IM DAILY [facility] Last Admin: 10/20/18 08:29 Dose: 1,000 mcg Docusate Sodium (Colace) 100 mg PO BID [facility] Last Admin: 10/20/18 08:28 Dose: 100 mg Fenofibrate (Tricor) 145 mg PO DAILY [facility] Last Admin: 10/20/18 08:34 Dose: 145 mg Furosemide (Lasix) 20 mg PO QOD [facility] Last Admin: 10/17/18 10:04 Dose: 20 mg Gabapentin (Neurontin) 300 mg PO TID [facility] Guaifenesin/Dextromethorphan (Mucinex-Dm 600-30 Mg) 2 tab PO Q12 [facility] Methylprednisolone 30 mg/ (Sodium Chloride) 50 mls @ 100 mls/hr IV DAILY [facility] Lidocaine (Lidoderm) 1 ea TD DAILY PRN PRN Reason: Pain, Mild (1-3) Methylprednisolone (Solu-Medrol) 30 mg IVP Q12 [facility] Stop: 10/20/18 23:59 Last Admin: 10/20/18 08:28 Dose: 30 mg Montelukast Sodium (Singulair) 10 mg PO HS [facility] Last Admin: 10/19/18 21:30 Dose: 10 mg Pantoprazole Sodium (Protonix Ec Tab) 40 mg PO DAILY PRN PRN Reason: stomach pain Tamsulosin HCl (Flomax) 0.4 mg PO DAILY [facility] Last Admin: 10/20/18 08:31 Dose: 0.4 mg - Labs Labs: 10/17/18 05:45 10/19/18 06:50 Assessment and Plan (1) COPD exacerbation Status: Acute (2) Hypercapnic respiratory failure Status: Acute
[2018-10-20 16:44] VITALS: RESP 20
[2018-10-20 20:26] VITALS: O2SAT 94
[2018-10-20] MEDS ORDERED: guaiFENesin-DM 600-30 mg ER Tab PO SCH (21:00)
--- NOTE | 2018-10-20 21:05 | PN ---
DATE: 10/20/2018 DAILY PROGRESS NOTE SUBJECTIVE: The patient is seen today, 10/20/2018. He overall feels better with less shortness of breath. PHYSICAL EXAMINATION: VITAL SIGNS: Blood pressure is 104/63, temperature 98.4, respiratory rate 20, and pulse 83. HEENT: Pupils equal and reactive to light. Normal-appearing mucosa of the conjunctivae, oropharynx and nasal membrane mucosa. NECK: Supple. No JVD. No carotid bruit. No lymph node. No thyromegaly. CHEST AND LUNGS: Bilateral symmetrical expansion. Good air exchange. No rales. No rhonchi. CARDIOVASCULAR SYSTEM: PMI not localized. S1 and S2. No additional sounds. ABDOMEN: Normoactive bowel sounds. No tenderness. No organomegaly. No masses. EXTREMITIES: No cyanosis, no clubbing, no edema. Deformity of both hands due to advanced rheumatoid arthritis. CENTRAL NERVOUS SYSTEM: Alert, awake, oriented x2. The patient moves all extremities equally. ASSESSMENT: 1. Exacerbation of chronic obstructive pulmonary disease. 2. Hypercapnic respiratory failure. 3. Advanced rheumatoid arthritis. 4. Hypertension. 5. Coronary artery disease, status post coronary artery bypass graft. PLAN: Continue current medications and follow pulmonary recommendations. Physical therapy and occupational therapy. Michaela Wood MD
[2018-10-21] MEDS: Acetylcysteine 20% Inhal Soln (4ml) INH SCH ×2 (01:45→07:45)
[2018-10-21] MEDS: Albuterol-Ipratrop 3 mg / 0.5 (3 ml) UD INH SCH ×2 (01:45→07:48)
[2018-10-21] MEDS ORDERED: methylPREDNISolone 80 MG in Sodium Chloride 0.9% 50 ML IV STA (07:59)
--- NOTE | 2018-10-21 08:22 | PCM.RRT ---
<Jayden Serrato - Last Filed: 10/21/18 08:25> WORKSHOP MANAGER Nurse Assessment - Situation WORKSHOP MANAGER Responder Arrival Time: 07:55 WORKSHOP MANAGER Reason for Call: Respiratory Distress, O2 Saturation below 90% WORKSHOP MANAGER Called By: RN - IV IV Inserted during WORKSHOP MANAGER?: No - Respiratory Oxygen Delivery Method: BiPAP - Ventilator Settings FIO2 (% Oxygen): 40 I.Reason for WORKSHOP MANAGER - A) Acute Change in Patient: (Select all that apply): Staff member or family is worried about patient, Acute change in SpO2 less Subjective: 73 y/o male with PMHx of COPD, heart failure, hyperlipidemia, hypertension, sleep apnea, Alzheimer's Disease admitted for COPD exacerbation currently in TCU for continued physical therapy. WORKSHOP MANAGER called on 7:53 am by nurse and respiratory therapist due to respiratory distress, cough and desaturation < 90%. WORKSHOP MANAGER team arrived on site with Dr. Renee. Patient was receiving Bipap with 40% O2 while he desaturated in low 80s. Patient received mucomist and duoneb prior to dyspnea. Vitals: BP: 102/58, T: 98.8, RR 22, and O2 97% on 100% O2. On physical exam Breath sounds present B/L with B/L lower lobe crackles and R LL rhonchi. Solumedrol 80mg and Lasix 20 mg IV given. Patient's O2 sat stayed >94% on 50% O2. Patient continued to have cough and will be transferred to ED for further evaluation. Previous CXR and meds reviewed. Dr. Wood called, aware and informed. Medications received: - Solumedrol 80 mg IV - Lasix 20 mg IV - Tessalon pearls - Robitussin - Neurological Status (Select all that apply): Alert, Responsive, Oriented, Verbal, Follows Commands - Respiratory Oxygen Delivery Method: BiPAP @% - Constitutional Appears: In Acute Distress - Eyes Eye Exam: EOMI, Normal appearance - Respiratory Exam Respiratory Exam: Accessory Muscle Use, Decreased Breath Sounds, Rales, Rhonchi - Cardiovascular Exam Cardiovascular Exam: Tachycardia, +S1, +S2 - Neurological Exam Neurological Exam: Alert, Awake Plan - Assessment of Findings&Treatment Plan 73 y/o male with PMHx of COPD, heart failure, hyperlipidemia, hypertension, sleep apnea, Alzheimer's Disease admitted for COPD exacerbation currently in TCU for continued physical therapy. WORKSHOP MANAGER called due to respiratory distress, cough and desaturation < 90% while on BiPAP. Vitals: BP: 102/58, T: 98.8, RR 22, and O2 increased from low 80s to 97% while on 100% O2. Physical exam: B/L lower lobe crackles and R LL rhonchi. Medications received: - Solumedrol 80 mg IV - Lasix 20 mg IV - Tessalon pearls - Robitussin - Patient to be transferred to ED for further evaluation. - Monitor respiratory status. - Dr. Wood aware. Case discussed with Dr. Renee. <Ledy Renee - Last Filed: 10/21/18 15:59> WORKSHOP MANAGER Nurse Assessment - Vital Signs Vital Signs: Rapid Response Vital Sign Blood Pressure 109/58 Pulse Rate 90 Respiratory Rate 25 Temperature 98 F Oxygen Saturation 100 - Vital Signs at end of WORKSHOP MANAGER Vital Signs at end of WORKSHOP MANAGER: Rapid Response End Vital Sign Blood Pressure 82/54 Pulse Rate 89 Respiratory Rate 22 Temperature 98 F O2 Sat by Pulse Oximetry 100 Attending/Attestation - Attestation I have personally seen and examined this patient.: Yes I have fully participated in the care of the patient.: Yes I have reviewed all pertinent clinical information, including history, physical exam and plan: Yes Notes (Text): Acute Respiratory Failure likely sec to COPD exacerbation, Interstitial Lung Dis and Intractable Coughing r/o Pneumonia - pt placed on Bipap Duoneb tx given ABG stat CXR stat IV Solumedrol stat Lasix 20 mg IV x 1 EKG done : no change Will transfer pt to ED for further work up and possible admission PMD DR Wood notified of event Pulmonary - Dr Amaya notified, case discussed Handed off patient to ED Physician - DR Sofi Shepard
[2018-10-21] MEDS ORDERED: MethylPREDNISolone 40 mg Vial IVP ONE (08:35)
[2018-10-21 08:36] VITALS: BP 93/48; PULSE 79; TEMP 97.5
[2018-10-21] MEDS ORDERED: MethylPREDNISolone 40 mg Vial IVP SCH (09:00)
[2018-10-21] MEDS ORDERED: methylPREDNISolone 30 MG in Sodium Chloride 0.9% 50 ML IV SCH (09:00)
--- NOTE | 2018-10-21 22:07 | PN ---
DATE: 10/20/2018 SUBJECTIVE: The patient was seen on 10/20/2018. He was not in any cardiopulmonary distress. The patient was compliant with physical therapy and occupational therapy. PHYSICAL EXAMINATION VITAL SIGNS: Blood pressure 111/64, temperature 98, respiratory rate 18 and pulse 67. HEENT: Pupils equal and reactive to light. Normal-appearing mucosa of the conjunctivae, oropharynx and nasal membrane mucosa. NECK: Supple. No JVD. No carotid bruit. No lymph node. No thyromegaly. CHEST AND LUNGS: Bilateral symmetrical expansion. Good air exchange. No rales. Scattered rhonchi, decreasing in intensity. CARDIOVASCULAR SYSTEM: PMI not localized. S1, S2. No additional sounds. ABDOMEN: Normoactive bowel sounds. No tenderness. No organomegaly. No masses. EXTREMITIES: No cyanosis, no clubbing, no edema. There is positive bilateral deformity of both hands. CENTRAL NERVOUS SYSTEM: Alert, awake, oriented x2. No neurological deficit could be appreciated. ASSESSMENT: Hypercapnic respiratory failure; coronary artery disease, status post coronary artery bypass graft; advanced rheumatoid arthritis; osteoarthritis. PLAN: Continue current management and follow with travelift operator. The patient is currently off antibiotics. Michaela Wood MD
--- NOTE | 2018-10-22 09:07 | DS ---
REASON FOR ADMISSION This is a 73-year-old Monegasque male with history of multiple medical problems who was admitted to Transitional Care Unit for completion of IV antibiotic and steroid therapy as well as physical therapy and deconditioning. COURSE OF HOSPITALIZATION: The patient was admitted to transitional care unit at [facility]. The patient was continued on his medications. The patient had a pulmonary consultation done during this admission by Dr. Amaya. The patient was continued on physical therapy and occupational therapy. On the day of discharge, the patient had an SYSTEMS ANALYSIS MANAGER done due to an attack of cough associated with desaturation and shortness of breath. The patient was discharged to the emergency room to be evaluated. FINAL DIAGNOSES: Hypercapnic respiratory failure, severe chronic obstructive pulmonary disease, on home oxygen, coronary artery disease, status post coronary artery bypass graft, advanced rheumatoid arthritis, osteoarthritis. [facility] MD [place]
== END 2018-10-21 08:30 | disposition short-term general hospital (02) | DRG 190 ==
LOC: H.TCU 17:26
PROVIDERS: ADMIT Internal Medicine; ATTEND Internal Medicine
PROC: 5A09457 Assistance with Respiratory Ventilation, 24-96 Consecutive Hours, Continuous Positive Airway Pressure (ICD-10-PCS; principal; 2018-10-14)
PROC: 3E0333Z Introduction of Anti-inflammatory into Peripheral Vein, Percutaneous Approach (ICD-10-PCS; 2018-10-14)
PROC: F07M6FZ Therapeutic Exercise Treatment of Musculoskeletal System - Whole Body using Assistive, Adaptive, Supportive or Protective Equipment (ICD-10-PCS; 2018-10-16)
PROC: 3E03329 Introduction of Other Anti-infective into Peripheral Vein, Percutaneous Approach (ICD-10-PCS; 2018-10-16)
DX: J44.1 Chronic obstructive pulmonary disease with (acute) exacerbation (principal); J96.92 Respiratory failure, unspecified with hypercapnia; E87.2 Acidosis; J44.0 Chronic obstructive pulmonary disease with (acute) lower respiratory infection; J20.9 Acute bronchitis, unspecified; M06.9 Rheumatoid arthritis, unspecified; M19.90 Unspecified osteoarthritis, unspecified site; Z87.01 Personal history of pneumonia (recurrent); Z87.891 Personal history of nicotine dependence; Z95.1 Presence of aortocoronary bypass graft; Z95.5 Presence of coronary angioplasty implant and graft; Z99.81 Dependence on supplemental oxygen; E11.9 Type 2 diabetes mellitus without complications; E78.00 Pure hypercholesterolemia, unspecified; E78.5 Hyperlipidemia, unspecified; F02.80 Dementia in other diseases classified elsewhere, unspecified severity, without behavioral disturbance, psychotic disturbance, mood disturbance, and anxiety; G30.9 Alzheimer's disease, unspecified; G47.30 Sleep apnea, unspecified; I25.10 Atherosclerotic heart disease of native coronary artery without angina pectoris; I11.0 Hypertensive heart disease with heart failure; I50.9 Heart failure, unspecified

== ENCOUNTER 2018-10-21 08:22 | Inpatient (IN) | payer OTHER, MEDICAID ==
[2018-10-21 08:22] VITALS: BMI 23.6
[2018-10-21] MEDS ORDERED: Albuterol-Ipratrop 3 mg / 0.5 (3 ml) UD ONE ×2 (08:31→10:20)
[2018-10-21] MEDS ORDERED: Albuterol-Ipratrop 3 mg / 0.5 (3 ml) UD INH STA ×2 (08:45→08:46)
--- NOTE | 2018-10-21 08:52 | ED PDOC ---
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 As per Dr. Renee, patient was in respiratory distress and was coughing a lot. Patient was transferred from [facility] after COPD exacerbation and asthma. Patient states phlegm is unable to be removed. Patient was given Solumedrol and duonebs. Patient was started on bypap prior to transfer to the ER. PMD: Dr. Israel Same S Past Medical History Reviewed: Historical Data, Nursing Documentation, Vital Signs Vital Signs: Last Vital Signs Temp 99.3 F 10/21/18 08:43 Pulse 94 H 10/21/18 08:28 Resp 20 10/21/18 08:28 BP 116/46 L 10/21/18 08:28 Pulse Ox 98 10/21/18 08:28 - Medical History PMH: Alzheimer's Disease, Arthritis (BACK), Asthma, Back Problems, CAD, COPD, Diabetes, Fractures, HTN, Hypercholesterolemia, Hyperlipidemia, Sleep Apnea Denies: CHF, Hepatitis, HIV, Hypothyroidism, Chronic Kidney Disease, Rheumatoid Arthritis, Seizures, Sexually Transmitted Disease - Surgical History Surgical History: Back Surgery (T-spine), CABG (1999), Coronary Stent - Family History Family History: States: Unknown Family Hx - Social History Current smoker - smoking cessation education provided: No Ex-Smoker (has not smoked in the last 12 months): Yes Alcohol: None Drugs: Denies - Immunization History Hx Tetanus Toxoid Vaccination: No Hx Influenza Vaccination: No Hx Pneumococcal Vaccination: Yes - Home Medications Home Medications: Ambulatory Orders Medication Instructions Recorded Atorvastatin [Lipitor] 20 mg PO HS 11/29/16 Montelukast [Singulair] 10 mg PO HS 11/29/16 Calcium Carbonate [Oscal] 500 mg PO DAILY 02/03/18 Colace 100 mg PO BID 02/03/18 Hydroxychloroquine Sulfate 200 mg PO BID 02/03/18 [Plaquenil] Tamsulosin [Flomax] 0.4 mg PO DAILY 02/03/18 Zebeta 2.5 mg PO DAILY 06/03/18 Fenofibrate Nanocrystallized 145 mg PO DAILY 09/05/18 [Tricor] Furosemide [Lasix] 20 mg PO QOD6 09/05/18 Bisoprolol Fumarate 2.5 mg PO DAILY 10/10/18 Clopidogrel [Plavix] 75 mg PO QWK 10/10/18 Pantoprazole [Protonix EC Tab] 20 mg PO DAILY PRN 10/10/18 traMADol [Ultram] 50 mg PO TID PRN 10/10/18 Acetylcysteine 20% 2 ml INH RQ6 vial 10/14/18 Albuterol/Ipratropium [Duoneb 3 3 ml INH RQ6 neb 10/14/18 mg/0.5 mg (3 ml) UD] Azithromycin [Zithromax] 500 mg IVPB DAILY vial 10/14/18 Aztreonam [Azactam] 1 gm IVPB Q8H vial 10/14/18 Baclofen [Lioresal] 10 mg PO DAILY 10/14/18 Gabapentin [Neurontin] 300 mg PO BID 10/14/18 Heparin 5,000 units SC Q8 vial 10/14/18 Lidocaine 5% [Lidoderm] 1 ea TD DAILY PRN 10/14/18 methylPREDNISolone [Solu-Medrol] 40 mg IV Q12H ml 10/14/18 - Allergies Allergies/Adverse Reactions: Allergies Allergy/AdvReac Type Severity Reaction Status Date / Time Penicillins Allergy Unknown RASH Verified 10/21/18 08:27 Review of Systems ROS Statement: Except As Marked, All Systems Reviewed And Found Negative Respiratory: Positive for: Cough (no phlegm), Shortness of Breath, Other (respiratory distress) Physical Exam - Reviewed Nursing Documentation Reviewed: Yes Vital Signs Reviewed: Yes - Physical Exam Appears: Positive for: In Acute Distress (In respiratory distress) Head Exam: Positive for: ATRAUMATIC, NORMOCEPHALIC Skin: Positive for: Normal Color, Warm, Dry Eye Exam: Positive for: Normal appearance Neck: Positive for: Normal, Painless ROM Cardiovascular/Chest: Positive for: Regular Rate, Rhythm, Other (midline thoracic scar) Respiratory: Positive for: Respiratory Distress (mild), Other (Perslip breathing). Negative for: Wheezing Neurologic/Psych: Positive for: Alert (and awake), Other (Speaking full sentences) - Laboratory Results Result Diagrams: 10/21/18 09:03 10/21/18 09:03 - ECG O2 Sat by Pulse Oximetry: 98 (RA) Pulse Ox Interpretation: Normal - Radiology X-Ray: Read By Radiologist - Progress Re-evaluation Time: 09:00 Condition: Improved Medical Decision Making Medical Decision Making: Initial Impression: COPD exacerbation Initial Plan: --ABG shock panel --ECG --CMP --CBC --Chest X-ray --Albuterol 3mL INH --Peak flow Scribe Attestation: Documented by Octavio Gonzalez acting as a scribe for Sofi Shepard MD. Provider Scribe Attestation: All medical record entries made by the Scribe were at my direction and personally dictated by me. I have reviewed the chart and agree that the record accurately reflects my personal performance of the history, physical exam, medical decision making, and the department course for this patient. I have also personally directed, reviewed, and agree with the discharge instructions and disposition. case d/w Dr. Renee. She will order antibiotics as per consultation with Dr. Amaya. Dr. Wood notified for admission. Disposition - Clinical Impression Clinical Impression: COPD (chronic obstructive pulmonary disease) - Patient ED Disposition Is Patient to be Admitted: Yes Doctor Will See Patient In The: Hospital - Disposition Disposition: Transfer of Care Disposition Time: 09:15 Condition: FAIR Forms: [email or web address] (Kyrgyz) - Pt Status Changed To: Hospital Disposition Of: Inpatient - Admit Certification Admit to Inpatient:: After my assessment, the patient will require hospitalization for at least two midnights. This is because of the severity of symptoms shown, intensity of services needed, and/or the medical risk in this patient being treated as an outpatient. - POA Present On Arrival: None
--- NOTE | 2018-10-21 09:04 | RAD ---
Date of service: 10/21/2018 HISTORY: copd, cough, dyspnea COMPARISON: Portable chest 09/09/2018. FINDINGS: LUNGS: Image is captured in a reverse lordotic projection. Bilateral mid inferior pulmonary infiltrates or atelectasis are identified with underlying left pleural effusion not excluded. No right pleural effusion. Dense mitral annular calcifications seen. Cardiac size is stable. Pulmonary vascular congestion is difficult to exclude. No pneumothorax bilaterally. Calcific atherosclerotic changes are seen related to the thoracic aorta. OSSEOUS STRUCTURES: Posterior thoracic spinal fusion hardware identified in situ. VISUALIZED UPPER ABDOMEN: Normal. OTHER FINDINGS: None. IMPRESSION: Bilateral mid to inferior pulmonary infiltrates/atelectasis identified with underlying CHF difficult to exclude/evaluate. No pneumothorax. Left pleural effusion not excluded.
[2018-10-21 09:08] LABS: LYMPH # 1.1 K/uL (1.0-4.3); MEAN CORPUSCULAR HGB CONC 31.4 g/dL (33.0-37.0); MONO # 0.5 K/uL (0.0-0.8); MONO % 9.1 % (0.0-10.0); NRBC % 0.1 % (0.0-0.0)
[2018-10-21 09:12] LABS: BASO % 0.3 % (0.0-2.0); LYMPH % 18.2 % (20.0-40.0); MEAN CELL VOLUME 101.5 fl (80.0-94.0); MEAN CORPUSCULAR HEMOGLOBIN 31.9 pg (27.0-31.0); MEAN PLATELET VOLUME 11.1 fl (7.2-11.7); NEUT # 4.3 K/uL (1.8-7.0); NEUT % 72.4 % (50.0-75.0); RBC 3.77 Mil/uL (4.40-5.90); WHITE BLOOD COUNT 5.9 K/uL (4.8-10.8)
[2018-10-21 09:29] LABS: ABG ALLEN TEST YES; ARTERIAL BLOOD GAS O2 SAT 94.7 % (95-98); ARTERIAL BLOOD GAS PCO2 55 mm/Hg (35-45); ARTERIAL BLOOD GAS PH 7.49 (7.35-7.45); ARTERIAL BLOOD GAS PO2 51 mm/Hg (80-100); ARTERIAL BLOOD GAS TCO2 43.6 mmol/L (22-28)
[2018-10-21 09:39] LABS: ALT/SGPT 43 U/L (21-72); AST/SGOT 37 U/L (17-59); BLOOD UREA NITROGEN 22 mg/dl (9-20); CALCIUM 9.2 mg/dL (8.4-10.2); GFR NON-AFRICAN AMERICAN > 60
[2018-10-21] MEDS ORDERED: Vancomycin 1 g Inj ONE (10:21)
[2018-10-21] MEDS ORDERED: Albuterol-Ipratrop 3 mg / 0.5 (3 ml) UD INH ONE (11:15)
[2018-10-21] MEDS: Cefepime 2 GM in Sodium Chloride 0.9% 100 ML IVPB SCH ×2 (12:22→21:51)
[2018-10-21] MEDS ORDERED: Lidocaine 5% Patch TD PRN (14:41)
--- NOTE | 2018-10-21 14:53 | CARD ---
APPROVED REPORT Date of service: 10/21/2018 EKG Measurement Heart [id number] CO [id number] [id number] <Conclusion> Sinus rhythm with premature atrial complexes in a pattern of bigeminy Right bundle branch block Cannot rule out Inferior infarct, age undetermined Abnormal ECG
[2018-10-21] MEDS: Acetylcysteine 20% Inhal Soln (4ml) INH SCH (19:00)
[2018-10-21] MEDS: Albuterol-Ipratrop 3 mg / 0.5 (3 ml) UD INH SCH (19:00)
[2018-10-22] MEDS: Albuterol-Ipratrop 3 mg / 0.5 (3 ml) UD INH SCH ×4 (01:05→19:22)
[2018-10-22] MEDS: Acetylcysteine 20% Inhal Soln (4ml) INH SCH ×4 (01:05→19:22)
[2018-10-22] MEDS ORDERED: guaiFENesin 100 mg/5 ml Syrup UD PO ONE (02:29)
--- NOTE | 2018-10-22 03:42 | HP ---
HISTORY OF PRESENT ILLNESS: This is a 73-year-old [place] male with history of multiple medical problems including severe COPD, on home oxygen, was in transitional care unit for deconditioning, physical therapy and rehabilitation. The patient had an PRINTER'S DEVIL called in the morning due to a persistent attack of cough associated with shortness of breath. The patient desaturated, and he was transferred to emergency room where he was evaluated. The patient had a chest x-ray done that showed bilateral lung infiltrate. The patient was started on both vancomycin and Zosyn and admitted to telemetry unit for further management. Other review of systems is generalized weakness, easy fatigability, exertional shortness of breath. ALLERGIES: POSITIVE ALLERGY TO PENICILLIN. PAST MEDICAL HISTORY: COPD, rheumatoid arthritis, hypertension, coronary artery disease, status post coronary artery bypass graft, type 2 diabetes mellitus. SOCIAL HISTORY: Ex-smoker. No EtOH or substance abuse. FAMILY HISTORY: Not contributory. MEDICATIONS: Reviewed and ordered as per MAR. PHYSICAL EXAMINATION: GENERAL: The patient is in bed, in mild respiratory distress. VITAL SIGNS: Blood pressure 113/73, temperature 98.4, respiratory rate 18, and pulse 92. HEENT: Pupils equal and reactive to light. Normal-appearing mucosa of the conjunctivae, oropharyngeal, and nasal mucosa. NECK: Supple. No JVD. No carotid bruit. No lymph nodes. No thyromegaly. CHEST AND LUNGS: Bilateral symmetrical expansion with scattered rhonchi in both lung amos. CARDIOVASCULAR SYSTEM: PMI not localized. S1, S2. No additional sounds. ABDOMEN: Normoactive bowel sounds. No tenderness. No organomegaly. No masses. EXTREMITIES: No cyanosis, no clubbing, no edema. CENTRAL NERVOUS SYSTEM: Alert, awake, oriented x2. No neurological deficit could be appreciated. ASSESSMENT: 1. Exacerbation of chronic obstructive pulmonary disease, hypercapnic respiratory failure, bilateral pneumonia, likely healthcare acquired pneumonia. 2. Coronary artery disease, status post coronary artery bypass graft. 3. Advanced rheumatoid arthritis with bilateral hand deformity. PLAN: Continue bronchodilators and mucolytic. Continue steroids as well as IV antibiotics that was ordered by fondant puff maker, pulmonary consult. Oxygen/BiPAP as needed. Michaela Wood MD [facility] # [id number]
[2018-10-22] MEDS ORDERED: Sodium Chloride 3% for Inhalation 4 ML VIAL.NEB IH PRN (09:54)
[2018-10-22] MEDS: Cefepime 2 GM in Sodium Chloride 0.9% 100 ML IVPB SCH ×2 (12:38→20:10)
--- NOTE | 2018-10-22 15:58 | RAD ---
Date of service: 10/22/2018 HISTORY: pneumonia COMPARISON: Portable chest 10/21/2018. FINDINGS: LUNGS: Improved aeration is seen overall with residual airspace disease noted at the right greater than left lung bases. Small right pleural effusion not excluded. Borderline left pleural effusion versus fibrosis blunting left costophrenic sulcus. No pneumothorax bilaterally. PLEURA: As above. CARDIOVASCULAR: Calcific atherosclerotic changes are seen related to the thoracic aorta. Likely prominent cardiac silhouette reiterated. Frontal technique limits evaluation. Mild pulmonary vascular congestion identified. OSSEOUS STRUCTURES: Thoracic spinal fusion hardware reiterated. VISUALIZED UPPER ABDOMEN: Normal. OTHER FINDINGS: None. IMPRESSION: Improved aeration with diminishing bilateral infiltrates. Mild pulmonary vascular congestion suggested. Stable cardiomegaly.
[2018-10-22] MEDS: Pantoprazole 20 mg EC Tab PO PRN (17:42)
[2018-10-22] MEDS: guaiFENesin 600 mg ER Tab PO SCH (21:45)
[2018-10-23] MEDS: Albuterol-Ipratrop 3 mg / 0.5 (3 ml) UD INH SCH ×4 (01:04→19:09)
[2018-10-23] MEDS: Acetylcysteine 20% Inhal Soln (4ml) INH SCH ×4 (01:04→19:09)
[2018-10-23] MEDS: guaiFENesin 600 mg ER Tab PO SCH ×2 (09:08→21:37)
[2018-10-23] MEDS: Cefepime 2 GM in Sodium Chloride 0.9% 100 ML IVPB SCH ×2 (09:08→21:37)
[2018-10-23] MEDS: Pantoprazole 20 mg EC Tab PO PRN (09:09)
--- NOTE | 2018-10-23 09:22 | CP.PCM.CON ---
History of Present Illness - History of Present Illness History of Present Illness: This 73-year-old male is known to me from recently being hospitalized in subacute rehabilitation. He does suffer from severe rheumatoid arthritis as well as interstitial lung disease with pulmonary fibrosis and honeycombing in the lower lobes. There is also a questionable organized pneumonia in the right lower lobe as well. He had been complaining of increasing cough associated with desaturation of his oxygen content and was transferred to the emergency department for evaluation and admission to the hospital. He was found to have bilateral lower lobe pneumonia on chest x-ray and has been placed on cefepime and vancomycin for healthcare associated pneumonia. He suffers from chronic hypercapnic and hypoxemic ventilatory failure, and has been using BiPAP mask ventilation while hospitalized as well as home. His chest x-ray after 48 hours of antibiotic therapy is showing some signs of improvement. He is a former cigarette smoker who also has underlying chronic obstructive pulmonary disease as well as obstructive sleep apnea. Past Patient History - Infectious Disease Hx of Infectious Diseases: None - Past Medical History & Family History Past Medical History?: Yes - Past Social History Smoking Status: Former Smoker Chewing Tobacco Use: No Cigar Use: No Alcohol: None Drugs: Denies - CARDIAC Hx Congestive Heart Failure: No Hx Hypercholesterolemia: Yes Hx Hypertension: Yes Other/Comment: Coronary artery disease with prior bypass grafting. - PULMONARY Hx Asthma: Yes Hx Bronchitis: Yes Hx Chronic Obstructive Pulmonary Disease (COPD): Yes Hx Pneumonia: Yes Hx Sleep Apnea: Yes Other/Comment: Interstitial lung disease with pulmonary fibrosis. - NEUROLOGICAL Hx Dementia: Yes Hx Seizures: No - HEENT Hx HEENT Problems: No - RENAL Hx Chronic Kidney Disease: No - ENDOCRINE/METABOLIC Hx Diabetes Mellitus Type 2: Yes - HEMATOLOGICAL/ONCOLOGICAL Hx Human Immunodeficiency Virus (HIV): No Other/Comment: Thrombocytopenia - INTEGUMENTARY Hx Dermatological Problems: No - MUSCULOSKELETAL/RHEUMATOLOGICAL Hx Arthritis: Yes (BACK) Hx Falls: No Hx Fractures: Yes (Hip) Hx Rheumatoid Arthritis: Yes - GASTROINTESTINAL Hx Gastrointestinal Disorders: No - GENITOURINARY/GYNECOLOGICAL Hx Genitourinary Disorders: No - PSYCHIATRIC Hx Psychophysiologic Disorder: No Hx Substance Use: No - SURGICAL HISTORY Hx Coronary Artery Bypass Graft: Yes (1999) Hx Coronary Stent: Yes Hx Orthopedic Surgery: Yes (Hip) - ANESTHESIA Hx Anesthesia: Yes Hx Anesthesia Reactions: No Hx Malignant Hyperthermia: No Meds Allergies/Adverse Reactions: Allergies Allergy/AdvReac Type Severity Reaction Status Date / Time Penicillins Allergy Unknown RASH Verified 10/21/18 08:27 - Medications Medications: Current Medications Acetylcysteine (Acetylcysteine 20%) 2 ml INH RQ6 [facility] Last Admin: 10/23/18 07:49 Dose: 2 ml Albuterol/Ipratropium (Duoneb 3 Mg/0.5 Mg (3 Ml) Ud) 3 ml INH RQ6 [facility] Last Admin: 10/23/18 07:48 Dose: 3 ml Atorvastatin Calcium (Lipitor) 20 mg PO HS [facility] Last Admin: 10/22/18 21:45 Dose: 20 mg Baclofen (Lioresal) 10 mg PO DAILY [facility] Last Admin: 10/22/18 09:36 Dose: 10 mg Benzonatate (Tessalon Perles) 200 mg PO Q8 PRN PRN Reason: Cough Last Admin: 10/22/18 12:50 Dose: 200 mg Bisoprolol Fumarate (Zebeta) 2.5 mg PO DAILY [facility] Last Admin: 10/23/18 09:14 Dose: 2.5 mg Bisoprolol Fumarate (Zebeta) 2.5 mg PO DAILY [facility] Last Admin: 10/22/18 09:36 Dose: 2.5 mg Calcium Carbonate (Oscal) 500 mg PO DAILY [facility] Last Admin: 10/23/18 09:09 Dose: 500 mg Clopidogrel Bisulfate (Plavix) 75 mg PO QWK [facility] Docusate Sodium (Colace) 100 mg PO BID [facility] Last Admin: 10/22/18 21:46 Dose: 100 mg Fenofibrate (Tricor) 145 mg PO DAILY [facility] Last Admin: 10/23/18 09:09 Dose: 145 mg Furosemide (Lasix) 20 mg PO QOD [facility] Gabapentin (Neurontin) 300 mg PO BID [facility] Last Admin: 10/23/18 09:09 Dose: 300 mg Guaifenesin (Mucinex La) 600 mg PO Q12 [facility] Last Admin: 10/23/18 09:08 Dose: 600 mg Heparin Sodium (Porcine) (Heparin) 5,000 units SC Q8 [facility]; Protocol Last Admin: 10/23/18 01:12 Dose: 5,000 units Hydroxychloroquine Sulfate (Plaquenil) 200 mg PO BID [facility]; Protocol Last Admin: 10/23/18 09:16 Dose: 200 mg Vancomycin HCl 1 gm/ Sodium (Chloride) 250 mls @ 166.667 mls/hr IVPB Q12 [facility]; Protocol Last Admin: 10/22/18 21:42 Dose: 166.667 mls/hr Cefepime HCl 2 gm/ Sodium (Chloride) 100 mls @ 100 mls/hr IVPB Q12 [facility]; Protocol Last Admin: 10/23/18 09:08 Dose: 100 mls/hr Lidocaine (Lidoderm) 1 ea TD DAILY PRN PRN Reason: Pain, Mild (1-3) Montelukast Sodium (Singulair) 10 mg PO HS [facility] Last Admin: 10/22/18 21:45 Dose: 10 mg Pantoprazole Sodium (Protonix Ec Tab) 20 mg PO DAILY PRN PRN Reason: stomach pain Last Admin: 10/23/18 09:09 Dose: 20 mg Tamsulosin HCl (Flomax) 0.4 mg PO DAILY [facility] Last Admin: 10/22/18 09:36 Dose: 0.4 mg Tramadol HCl (Ultram) 50 mg PO TID PRN PRN Reason: Pain, moderate (4-7) Last Admin: 10/22/18 12:50 Dose: 50 mg Physical Exam - Additional Findings Additional findings: Chronically ill-appearing male lying in bed supine wearing a BiPAP mask. Really awakens and cooperative with the examination. Answers questions appropriately. Joint deformity of both hands is noted. Scattered ecchymoses. Cushingoid facies. No cyanosis. Trace dependent edema. Neck is supple and trachea is midline. No palpable lymphadenopathy. No dullness to percussion of the anterior thorax. No subcutaneous emphysema. Breath sounds are diminished but present bilaterally with dry to medium early rales in the lower lung zones. Posteriorly the breath sounds are significantly diminished with coarse rales heard in lower lobes of both lungs. No audible wheezing. No bronchial breath sounds appreciated. Heart sounds are distant and rhythm is regular. Abdomen is soft and nontender. Bowel sounds are present. Results - Vital Signs Recent Vital Signs: Last Vital Signs Temp 99.0 F 10/23/18 08:00 Pulse 80 10/23/18 08:01 Resp 18 10/23/18 08:00 BP 121/61 10/23/18 08:00 Pulse Ox 93 L 10/23/18 08:00 - Labs Result Diagrams: 10/21/18 09:03 10/21/18 09:03 Labs: Laboratory Results - last 24 hr 10/22/18 12:30 Mycoplasma pneumon IgM Negative Assessment & Plan (1) HCAP (healthcare-associated pneumonia) Status: Acute Priority: High (2) Pulmonary fibrosis determined by high resolution computed tomography Status: Chronic Priority: High (3) Acute on chronic respiratory failure with hypoxemia Status: Acute Priority: High (4) Hypercapnic respiratory failure Status: Chronic Priority: High (5) ILD (interstitial lung disease) Status: Chronic Priority: High - Assessment and Plan (Free Text) Plan: Continue current medical management using cefepime and vancomycin. Continue use of BiPAP mask ventilation nocturnally as well as as needed during the daytime. Temporarily suspend diuretic therapy considering possibility of volume con traction with mild metabolic alkalosis. Aerosol therapy using DuoNeb 4 times daily and consider reducing N- acetylcysteine to twice daily. Sputum for culture and sensitivity. - Date & Time Date: 10/23/18 Time: 09:36
[2018-10-23 10:08] LABS: BASO % 0.1 % (0.0-2.0); EOS % 0.1 % (0.0-4.0); HEMOGLOBIN 10.7 g/dL (12.0-18.0); LYMPH # 1.1 K/uL (1.0-4.3); LYMPH % 19.1 % (20.0-40.0); MEAN CELL VOLUME 102.3 fl (80.0-94.0); MEAN CORPUSCULAR HEMOGLOBIN 32.3 pg (27.0-31.0); MEAN CORPUSCULAR HGB CONC 31.6 g/dL (33.0-37.0); MEAN PLATELET VOLUME 10.2 fl (7.2-11.7); MONO # 0.4 K/uL (0.0-0.8); MONO % 6.5 % (0.0-10.0); NEUT # 4.1 K/uL (1.8-7.0); NEUT % 74.2 % (50.0-75.0); NRBC % 0.1 % (0.0-0.0); RBC 3.3 Mil/uL (4.40-5.90); RED CELL DISTRIBUTION WIDTH 16.4 % (11.5-14.5); WHITE BLOOD COUNT 5.5 K/uL (4.8-10.8)
[2018-10-23 10:22] LABS: BLOOD UREA NITROGEN 17 mg/dl (9-20); CALCIUM 8.7 mg/dL (8.4-10.2); GFR NON-AFRICAN AMERICAN > 60
--- NOTE | 2018-10-23 10:26 | RAD ---
Date of service: 10/23/2018 HISTORY: pneumonia COMPARISON: 10/22/2018 FINDINGS: LUNGS: Again seen are low lung volumes. There is little interval change in airspace disease in the right lower lobe and left lung base. PLEURA: Persistent small right pleural effusion. No pneumothorax.. CARDIOVASCULAR: Stable. No aortic atherosclerotic calcification present. OSSEOUS STRUCTURES: Stable appearance of posterior fixation hardware in the thoracic spine.. VISUALIZED UPPER ABDOMEN: Normal. OTHER FINDINGS: None. IMPRESSION: Little interval change in right lower lobe and left basilar airspace disease and small right pleural effusion.
[2018-10-24] MEDS: Albuterol-Ipratrop 3 mg / 0.5 (3 ml) UD INH SCH ×4 (00:59→19:23)
[2018-10-24] MEDS: Acetylcysteine 20% Inhal Soln (4ml) INH SCH ×4 (00:59→19:23)
--- NOTE | 2018-10-24 01:14 | PN ---
DATE: 10/23/2018 DAILY PROGRESS NOTE SUBJECTIVE: The patient is seen on today, 10/23/2018. He was in pulmonary distress. The patient had to have the BiPAP placed. PHYSICAL EXAMINATION: VITAL SIGNS: During this examination, blood pressure 110/70, temperature 98.2. CHEST AND LUNGS: The patient has bilateral scattered rhonchi all over lung amos . CARDIOVASCULAR SYSTEM: S1 and S2. No additional sounds. ABDOMEN: Normoactive bowel sounds. No tenderness. No organomegaly. No masses. EXTREMITIES: No cyanosis, no clubbing, no edema. CENTRAL NERVOUS SYSTEM: Alert, awake, oriented x2. No neurological deficit could be appreciated. ASSESSMENT: 1. Exacerbation of chronic obstructive pulmonary disease. 2. Healthcare related pneumonia. 3. Hypertension. 4. Type 2 diabetes mellitus. 5. Coronary artery disease, status post coronary artery bypass graft. PLAN: Continue current medications and management. Plan, continue current IV antibiotics, BiPAP as needed. Follow up pulmonary consult recommendation. Continue Accu-Cheks insulin coverage. Michaela Wood MD
[2018-10-24] MEDS: guaiFENesin 600 mg ER Tab PO SCH ×2 (09:47→21:23)
[2018-10-24] MEDS: Cefepime 2 GM in Sodium Chloride 0.9% 100 ML IVPB SCH ×2 (09:50→21:21)
--- NOTE | 2018-10-24 10:07 | CP.PCM.PN ---
Subjective - Date & Time of Evaluation Date of Evaluation: 10/24/18 Time of Evaluation: 10:00 - Subjective Subjective: Seen on rounds in telemetry. Lying in bed using BiPAP mask NPPV. Awake and cooperative. Cough during exam returns thick, clear mucoid sputum. Labs reviewed, yesterday's CXR reviewed. Patient prefers to remain on BiPAP at this time. Oxygenation is good. CO2 has decreased. Sputum gram stain noted. Dyspneic with conversation while the mask was temporarily removed. Coarse rhonchi and rales both present in the right lower lobe area posteriorly. Medium rales in the left lower lobe region. No audible wheezing or bronchial breathing. No dullness on percussion of anterior chest. No subcut emphysema. Heart sounds are distant and difficult to auscultate because of noisy breathing. Continue present antibiotic regimen. Diuretics have been temporarily stopped. NPPV using BiPAP mask as per patient comfort. Follow up CXR in AM. Await sputum culture report. Resume solumedrol 30MG IVPB daily. Objective - Vital Signs/Intake and Output Vital Signs (last 24 hours): Temp Pulse Resp BP Pulse Ox 97.9 F 89 18 93/58 L 94 L 10/24/18 07:55 10/24/18 07:55 10/24/18 07:55 10/24/18 07:55 10/24/18 07:55 - Medications Medications: Current Medications Acetaminophen (Tylenol 325mg Tab) 650 mg PO Q6 PRN PRN Reason: Headache Last Admin: 10/23/18 23:34 Dose: 650 mg Acetylcysteine (Acetylcysteine 20%) 2 ml INH RQ6 [facility] Last Admin: 10/24/18 07:24 Dose: 2 ml Albuterol/Ipratropium (Duoneb 3 Mg/0.5 Mg (3 Ml) Ud) 3 ml INH RQ6 [facility] Last Admin: 10/24/18 07:24 Dose: 3 ml Atorvastatin Calcium (Lipitor) 20 mg PO HS [facility] Last Admin: 10/23/18 21:37 Dose: 20 mg Baclofen (Lioresal) 10 mg PO DAILY [facility] Last Admin: 10/23/18 09:17 Dose: 10 mg Benzonatate (Tessalon Perles) 200 mg PO Q8 PRN PRN Reason: Cough Last Admin: 10/22/18 12:50 Dose: 200 mg Bisoprolol Fumarate (Zebeta) 2.5 mg PO DAILY [facility] Last Admin: 10/23/18 11:24 Dose: Not Given Calcium Carbonate (Oscal) 500 mg PO DAILY [facility] Last Admin: 10/23/18 09:09 Dose: 500 mg Clopidogrel Bisulfate (Plavix) 75 mg PO QWK [facility] Docusate Sodium (Colace) 100 mg PO BID [facility] Last Admin: 10/23/18 17:54 Dose: 100 mg Fenofibrate (Tricor) 145 mg PO DAILY [facility] Last Admin: 10/23/18 09:09 Dose: 145 mg Gabapentin (Neurontin) 300 mg PO BID [facility] Last Admin: 10/23/18 17:52 Dose: 300 mg Guaifenesin (Mucinex La) 600 mg PO Q12 [facility] Last Admin: 10/23/18 21:37 Dose: 600 mg Heparin Sodium (Porcine) (Heparin) 5,000 units SC Q8 [facility]; Protocol Last Admin: 10/24/18 01:59 Dose: 5,000 units Hydroxychloroquine Sulfate (Plaquenil) 200 mg PO BID [facility]; Protocol Last Admin: 10/23/18 17:52 Dose: 200 mg Vancomycin HCl 1 gm/ Sodium (Chloride) 250 mls @ 166.667 mls/hr IVPB Q12 [facility]; Protocol Last Admin: 10/23/18 22:30 Dose: 166.667 mls/hr Cefepime HCl 2 gm/ Sodium (Chloride) 100 mls @ 100 mls/hr IVPB Q12 [facility]; Protocol Last Admin: 10/23/18 21:37 Dose: 100 mls/hr Lidocaine (Lidoderm) 1 ea TD DAILY PRN PRN Reason: Pain, Mild (1-3) Montelukast Sodium (Singulair) 10 mg PO HS [facility] Last Admin: 10/23/18 21:37 Dose: 10 mg Pantoprazole Sodium (Protonix Ec Tab) 20 mg PO DAILY PRN PRN Reason: stomach pain Last Admin: 10/23/18 09:09 Dose: 20 mg Tamsulosin HCl (Flomax) 0.4 mg PO DAILY [facility] Last Admin: 10/23/18 09:17 Dose: 0.4 mg Tramadol HCl (Ultram) 50 mg PO TID PRN PRN Reason: Pain, moderate (4-7) Last Admin: 10/22/18 12:50 Dose: 50 mg - Labs Labs: 10/23/18 09:40 10/23/18 09:40 Assessment and Plan (1) HCAP (healthcare-associated pneumonia) Status: Acute (2) Pulmonary fibrosis determined by high resolution computed tomography Status: Chronic (3) Acute on chronic respiratory failure with hypoxemia Status: Acute (4) Hypercapnic respiratory failure Status: Chronic (5) ILD (interstitial lung disease) Status: Chronic
[2018-10-24] MEDS ORDERED: methylPREDNISolone 30 MG in Sodium Chloride 0.9% 50 ML IVPB SCH (10:15)
[2018-10-24] MEDS: MethylPREDNISolone 40 mg Vial IVP SCH (11:33)
[2018-10-25] MEDS: Albuterol-Ipratrop 3 mg / 0.5 (3 ml) UD INH SCH ×4 (00:59→19:15)
[2018-10-25] MEDS: Acetylcysteine 20% Inhal Soln (4ml) INH SCH ×4 (00:59→19:15)
--- NOTE | 2018-10-25 03:20 | PN ---
DATE: 10/24/2018 SUBJECTIVE: The patient is seen today, 10/24/2018. He still has BiPAP on as he was seen. The patient becomes short of breath as he takes the BiPAP off. OBJECTIVE: VITAL SIGNS: Blood pressure 92/56, temperature 97.6, respiratory rate 20, and pulse 90. HEENT: Pupils equal and reactive to light. Normal-appearing mucosa of the conjunctivae, oropharynx, and nasal membrane mucosa. NECK: Supple. No JVD. No carotid bruit. No lymph node. No thyromegaly. CHEST AND LUNGS: Bilateral symmetrical expansion. Good air exchange. Few scattered rhonchi. CARDIOVASCULAR SYSTEM: PMI not localized. S1, S2. No additional sounds. ABDOMEN: Normoactive bowel sounds. No tenderness. No organomegaly. No masses. EXTREMITIES: No cyanosis, no clubbing, no edema. CENTRAL NERVOUS SYSTEM: Alert, awake, oriented x2. No neurological deficit could be appreciated. ASSESSMENT: 1. Advanced rheumatoid arthritis. 2. Chronic obstructive pulmonary disease exacerbation. 3. Hypercapnic respiratory failure. 4. Bilateral pneumonia healthcare related. PLAN: Continue current antibiotics, bronchodilators. Follow pulmonary recommendations. Michaela Wood MD
[2018-10-25 06:21] LABS: HEMOGLOBIN 9.6 g/dL (12.0-18.0); MEAN CELL VOLUME 99.2 fl (80.0-94.0); MEAN CORPUSCULAR HEMOGLOBIN 32.2 pg (27.0-31.0); MEAN CORPUSCULAR HGB CONC 32.5 g/dL (33.0-37.0); RBC 2.97 Mil/uL (4.40-5.90); RED CELL DISTRIBUTION WIDTH 16.5 % (11.5-14.5); WHITE BLOOD COUNT 3.7 K/uL (4.8-10.8)
[2018-10-25 06:54] LABS: BLOOD UREA NITROGEN 16 mg/dl (9-20); CALCIUM 8.4 mg/dL (8.4-10.2); GFR NON-AFRICAN AMERICAN > 60
--- NOTE | 2018-10-25 08:48 | CP.PCM.PN ---
Subjective - Date & Time of Evaluation Date of Evaluation: 10/25/18 Time of Evaluation: 08:48 - Subjective Subjective: the patient was seen on rounds in telemetry this morning. He has remained on BiPAP mask ventilation steadily throughout the day and night. He removes the mask only briefly before meals. He continues to complain of shortness of breath. Cough is productive of mucoid sputum. Sputum cultures reported as normal munir He is adequately oxygenated using supplemental O2 via BiPAP mask. Current lab work remains stable. CT scan of the thorax was requested to evaluate extent of his current disease process. Medication will remain unchanged at this time. Methyl prednisone has been admitted back to the regimen yesterday. Objective - Vital Signs/Intake and Output Vital Signs (last 24 hours): Temp Pulse Resp BP Pulse Ox 98.0 F 78 20 95/62 L 95 10/25/18 08:22 10/25/18 08:22 10/25/18 08:22 10/25/18 08:22 10/25/18 08:22 - Medications Medications: Current Medications Acetaminophen (Tylenol 325mg Tab) 650 mg PO Q6 PRN PRN Reason: Headache Last Admin: 10/24/18 20:20 Dose: 650 mg Acetylcysteine (Acetylcysteine 20%) 2 ml INH RQ6 [facility] Last Admin: 10/25/18 08:05 Dose: 2 ml Albuterol/Ipratropium (Duoneb 3 Mg/0.5 Mg (3 Ml) Ud) 3 ml INH RQ6 [facility] Last Admin: 10/25/18 08:05 Dose: 3 ml Atorvastatin Calcium (Lipitor) 20 mg PO HS [facility] Last Admin: 10/24/18 21:23 Dose: 20 mg Baclofen (Lioresal) 10 mg PO DAILY [facility] Last Admin: 10/24/18 09:47 Dose: 10 mg Benzonatate (Tessalon Perles) 200 mg PO Q8 PRN PRN Reason: Cough Last Admin: 10/22/18 12:50 Dose: 200 mg Bisoprolol Fumarate (Zebeta) 2.5 mg PO DAILY [facility] Last Admin: 10/24/18 09:47 Dose: 2.5 mg Calcium Carbonate (Oscal) 500 mg PO DAILY [facility] Last Admin: 10/24/18 09:51 Dose: 500 mg Clopidogrel Bisulfate (Plavix) 75 mg PO QWK [facility] Docusate Sodium (Colace) 100 mg PO BID [facility] Last Admin: 10/24/18 17:46 Dose: 100 mg Fenofibrate (Tricor) 145 mg PO DAILY [facility] Last Admin: 10/24/18 09:48 Dose: 145 mg Gabapentin (Neurontin) 300 mg PO BID [facility] Last Admin: 10/24/18 17:47 Dose: 300 mg Guaifenesin (Mucinex La) 600 mg PO Q12 [facility] Last Admin: 10/24/18 21:23 Dose: 600 mg Heparin Sodium (Porcine) (Heparin) 5,000 units SC Q8 [facility]; Protocol Last Admin: 10/25/18 01:45 Dose: 5,000 units Hydroxychloroquine Sulfate (Plaquenil) 200 mg PO BID [facility]; Protocol Last Admin: 10/24/18 17:48 Dose: 200 mg Vancomycin HCl 1 gm/ Sodium (Chloride) 250 mls @ 166.667 mls/hr IVPB Q12 [facility]; Protocol Last Admin: 10/24/18 21:22 Dose: 166.667 mls/hr Cefepime HCl 2 gm/ Sodium (Chloride) 100 mls @ 100 mls/hr IVPB Q12 [facility]; Protocol Last Admin: 10/24/18 21:21 Dose: 100 mls/hr Lidocaine (Lidoderm) 1 ea TD DAILY PRN PRN Reason: Pain, Mild (1-3) Methylprednisolone (Solu-Medrol) 30 mg IVP DAILY [facility] Last Admin: 10/24/18 11:33 Dose: 30 mg Montelukast Sodium (Singulair) 10 mg PO HS [facility] Last Admin: 10/24/18 21:23 Dose: 10 mg Pantoprazole Sodium (Protonix Ec Tab) 20 mg PO DAILY PRN PRN Reason: stomach pain Last Admin: 10/23/18 09:09 Dose: 20 mg Tamsulosin HCl (Flomax) 0.4 mg PO DAILY [facility] Last Admin: 10/24/18 09:50 Dose: 0.4 mg Tramadol HCl (Ultram) 50 mg PO TID PRN PRN Reason: Pain, moderate (4-7) Last Admin: 10/22/18 12:50 Dose: 50 mg - Labs Labs: 10/25/18 04:35 10/25/18 04:35 Assessment and Plan (1) HCAP (healthcare-associated pneumonia) Status: Acute (2) Pulmonary fibrosis determined by high resolution computed tomography Status: Chronic (3) Acute on chronic respiratory failure with hypoxemia Status: Acute (4) Hypercapnic respiratory failure Status: Chronic (5) ILD (interstitial lung disease) Status: Chronic
[2018-10-25] MEDS: guaiFENesin 600 mg ER Tab PO SCH ×2 (09:41→21:01)
[2018-10-25] MEDS: Cefepime 2 GM in Sodium Chloride 0.9% 100 ML IVPB SCH ×2 (09:44→21:01)
[2018-10-25] MEDS: MethylPREDNISolone 40 mg Vial IVP SCH (10:28)
--- NOTE | 2018-10-25 13:50 | PQF ---
PROVIDER RESPONSE TEXT: Bronchopneumonia bilateral lower lobes, hospital acquired. Cannot ID organism, likely bacterial. No evidence of aspiration. REVIEWER QUERY TEXT: Pneumonia Specificity HCAP Pneumonia is documented in the Medical Record. Please specify the type of pneumonia and the caus ative organism (includes probable or suspected) HCAP represent the method of acquisition Such as: Type: -- Aspiration pneumonia (please also specify the aspirate) -- Bacterial (please document suspected or probable organism) if known -- Bronchopneumonia (please document suspected or probable organism) -- Interstitial pneumonia -- Organizing pneumonia / BOOP -- Pneumonia with influenza, jenn flu, or H1N1 flu -- Tuberculosis, pulmonary -- Viral -- Other, please specify -- Unable to determine The patient's Clinical Indicators include: The patient was in TCU and had an NATIONAL SECRETARY called in the morning due to a persistent attack of cough assoc iated with shortness of breath and desaturation. History of ILD and rheumatoid arthritis. CXR: Bilateral mid to inferior pulmonary infiltrates/atelectasis identified with underlying CHF diffi cult to exclude. Ur L. Pneumophila Ag Negative Mycoplasma Pneumon Ig M Negative Sputum CS Normal Angelica Rx: IVAB, Solumedrol, nebs Query created by: Payal Patel on 10/25/2018 1:32 PM Electronically signed by: New Amaya MD 10/25/2018 1:47 PM
--- NOTE | 2018-10-25 15:02 | CT ---
Date of service: 10/25/2018 PROCEDURE: CT Chest without contrast HISTORY: Followup COMPARISON: Comparison made with prior CT chest dated 03/06/2017.. Correlation also made with chest radiograph dated 10/23/2018. The TECHNIQUE: Contiguous axial images were obtained through the chest without intravenous contrast enhancement. Sagittal and coronal reconstructions were performed. Radiation dose: Total exam DLP = 472.55 mGy-cm. This CT exam was performed using one or more of the following dose reduction techniques: Automated exposure control, adjustment of the mA and/or kV according to patient size, and/or use of iterative reconstruction technique. FINDINGS: LUNGS: Significant atelectasis right lower lobe of with what could represent a small amount of pleural fluid as well.. There appears to be some debris within the of distal aspect of the right mainstem bronchus extending into the bronchus intermedius. Questionable debris within right lower lobe bronchi as well. Consider followup bronchoscopy to exclude other endobronchial lesions. Associated slight mediastinal shift from left to right. There is also mild left basilar and left upper lobe/lingular region atelectasis/scarring changes .. Suspect small left-sided effusion. MEDIASTINUM: Heart is mildly enlarged. No significant pericardial effusion. There is mild aneurysmal dilatation of the ascending thoracic aorta which measures approximately 4 cm. The descending thoracic aorta measures approximately 2.7 cm. . Mild to moderate aortic atherosclerotic calcification. Pulmonary trunk measures approximately 3.6 cm. Few small nonspecific mediastinal lymph nodes. Evaluation for hilar adenopathy is somewhat limited, particularly right side due to aforementioned atelectasis and the lack of circulating intravenous contrast material. PLEURA: As above. No evidence of pneumothorax. BONES: Redemonstrated are multiple chronic appearing thoracic compression defect actor is with posterior fixation hardware extending from the T3, through the T7 segments. Note also made of apparent changes of median sternotomy. UPPER ABDOMEN: Grossly unremarkable. OTHER FINDINGS: Changes of bilateral gynecomastia present. Heterogeneous appearance of the thyroid gland likely due to crossing streak and beam hardening artifact. There also appears to be mild enlargement of the thyroid gland right lobe more so than left including the isthmus. IMPRESSION: Significant atelectasis right lower lobe of with what could represent a small amount of pleural fluid as well.. There appears to be some debris within the of distal aspect of the right mainstem bronchus extending into the bronchus intermedius. Questionable debris within right lower lobe bronchi as well. Consider followup bronchoscopy to exclude other endobronchial lesions. Associated slight mediastinal shift from left to right. There is also mild left basilar and left upper lobe/lingular region atelectasis/scarring changes .. Suspect small left-sided effusion. Mild aneurysmal dilatation of the ascending thoracic aorta measuring 4 cm. See above discussion for additional details and findings.
[2018-10-26] MEDS: Acetylcysteine 20% Inhal Soln (4ml) INH SCH ×4 (01:00→19:22)
[2018-10-26] MEDS: Albuterol-Ipratrop 3 mg / 0.5 (3 ml) UD INH SCH ×4 (01:00→19:22)
--- NOTE | 2018-10-26 02:47 | PN ---
iDATE: 10/25/2018 SUBJECTIVE: The patient is seen today, 10/25/2018. He is still in need for BiPAP, gets short of breath if he stops it. The CAT scan of the chest also was done and it was read as significant atelectasis, right lower lobe with what could represent a small amount of pleural effusion as well. There appears to be some debris within the distal aspect of the right mainstem bronchus extending into the bronchus intermedius. Questionable debris within right lower lobe bronchi as well, mediastinal shift from the left to the right and there is also mid left basilar and left upper lobe lingular region . PHYSICAL EXAMINATION: VITAL SIGNS: The patient is afebrile with blood pressure 92/64, temperature 98.4, respiratory rate 22, and pulse 88. HEENT: Pupils equal and reactive to light. Normal-appearing mucosa of the conjunctivae, oropharynx, and nasal membrane mucosa. NECK: Supple. No JVD. No carotid bruit. No lymph node. No thyromegaly. CHEST AND LUNGS: Bilateral symmetrical expansion. Good air exchange. No rales. No rhonchi. CARDIOVASCULAR SYSTEM: PMI not localized. S1, S2. No additional sounds. ABDOMEN: Normoactive bowel sounds. No tenderness. No organomegaly. No masses. EXTREMITIES: No cyanosis, no clubbing, no edema. WIND TECHNICIAN: Alert, awake, oriented x2. No neurological deficit could be appreciated. ASSESSMENT: Exacerbation of chronic obstructive pulmonary disease, hypercapnic respiratory failure, hypertension, coronary artery disease, advanced rheumatoid arthritis with likely rheumatoid related lung disease. PLAN: Discussed the patient's condition with Dr. Amaya. Continue current antibiotics. We will consider ID consult. Gregor MD [place]
[2018-10-26] MEDS: Cefepime 2 GM in Sodium Chloride 0.9% 100 ML IVPB SCH ×2 (08:53→21:50)
[2018-10-26] MEDS: guaiFENesin 600 mg ER Tab PO SCH ×2 (08:54→21:51)
[2018-10-26] MEDS: MethylPREDNISolone 40 mg Vial IVP SCH (09:00)
--- NOTE | 2018-10-26 09:48 | CP.PCM.PN ---
Subjective - Date & Time of Evaluation Date of Evaluation: 10/26/18 Time of Evaluation: 09:44 - Subjective Subjective: Patient was seen on rounds in telemetry this morning. Presently he has removed his BiPAP mask and has just finished eating breakfast. A congested cough is noted and the patient does describe white mucoid sputum production. He does relate feeling slightly improved this morning. He continues to be afebrile and his vital signs remained stable. CT scan performed yesterday was reviewed: Significant atelectasis of the right l ower lobe with what appears to represent a small amount of pleural fluid. There appears to be some debris within the distal aspect of the right main bronchus extending into the bronchus intermedius. Questionable debris within the right lower lobe bronchi noted as well. There is also mild left basilar and left upper lobe/lingular region atelectasis. Small left-sided pleural effusion suspected. On exam breath sounds are diminished but present anteriorly in both lungs equally. Posteriorly the breath sounds are markedly diminished, especially so on the right. Coarse sonorous rhonchi are heard bilaterally. No audible wheezing. No bronchial breathing. Neck is supple and trachea appears to be deviated towards the right. No palpable cervical/supraclavicular or axillary adenopathy. Continue current aerosol therapy using N-acetylcysteine 3-4 times daily combined with bronchodilators. Patient's cough does not appear to be effective and will add postural drainage/CPT to the regimen. If ineffective, flexible bronchoscopy will need to be considered. Objective - Vital Signs/Intake and Output Vital Signs (last 24 hours): Temp Pulse Resp BP Pulse Ox 98.1 F 80 20 107/60 93 L 10/26/18 08:26 10/26/18 08:26 10/26/18 08:26 10/26/18 08:26 10/26/18 08:26 - Medications Medications: Current Medications Acetaminophen (Tylenol 325mg Tab) 650 mg PO Q6 PRN PRN Reason: Headache Last Admin: 10/26/18 08:40 Dose: 650 mg Acetylcysteine (Acetylcysteine 20%) 2 ml INH RQ6 [facility] Last Admin: 10/26/18 07:13 Dose: 2 ml Albuterol/Ipratropium (Duoneb 3 Mg/0.5 Mg (3 Ml) Ud) 3 ml INH RQ6 [facility] Last Admin: 10/26/18 07:13 Dose: 3 ml Atorvastatin Calcium (Lipitor) 20 mg PO HS [facility] Last Admin: 10/25/18 21:01 Dose: 20 mg Baclofen (Lioresal) 10 mg PO DAILY [facility] Last Admin: 10/26/18 08:52 Dose: 10 mg Benzonatate (Tessalon Perles) 200 mg PO Q8 PRN PRN Reason: Cough Last Admin: 10/22/18 12:50 Dose: 200 mg Bisoprolol Fumarate (Zebeta) 2.5 mg PO DAILY [facility] Last Admin: 10/26/18 08:56 Dose: 2.5 mg Calcium Carbonate (Oscal) 500 mg PO DAILY [facility] Last Admin: 10/26/18 08:54 Dose: 500 mg Clopidogrel Bisulfate (Plavix) 75 mg PO QWK [facility] Docusate Sodium (Colace) 100 mg PO BID [facility] Last Admin: 10/26/18 08:40 Dose: 100 mg Fenofibrate (Tricor) 145 mg PO DAILY [facility] Last Admin: 10/26/18 08:55 Dose: 145 mg Gabapentin (Neurontin) 300 mg PO BID [facility] Last Admin: 10/26/18 08:54 Dose: 300 mg Guaifenesin (Mucinex La) 600 mg PO Q12 [facility] Last Admin: 10/26/18 08:54 Dose: 600 mg Heparin Sodium (Porcine) (Heparin) 5,000 units SC Q8 [facility]; Protocol Last Admin: 10/26/18 08:47 Dose: 5,000 units Hydroxychloroquine Sulfate (Plaquenil) 200 mg PO BID [facility]; Protocol Last Admin: 10/26/18 08:54 Dose: 200 mg Vancomycin HCl 1 gm/ Sodium (Chloride) 250 mls @ 166.667 mls/hr IVPB Q12 [facility]; Protocol Last Admin: 10/26/18 08:55 Dose: 166.667 mls/hr Cefepime HCl 2 gm/ Sodium (Chloride) 100 mls @ 100 mls/hr IVPB Q12 [facility]; Protocol Last Admin: 10/26/18 08:53 Dose: 100 mls/hr Lidocaine (Lidoderm) 1 ea TD DAILY PRN PRN Reason: Pain, Mild (1-3) Methylprednisolone (Solu-Medrol) 30 mg IVP DAILY [facility] Last Admin: 10/26/18 09:00 Dose: 30 mg Montelukast Sodium (Singulair) 10 mg PO HS [facility] Last Admin: 10/25/18 21:01 Dose: 10 mg Pantoprazole Sodium (Protonix Ec Tab) 20 mg PO DAILY PRN PRN Reason: stomach pain Last Admin: 10/23/18 09:09 Dose: 20 mg Tamsulosin HCl (Flomax) 0.4 mg PO DAILY [facility] Last Admin: 10/26/18 08:47 Dose: 0.4 mg Tramadol HCl (Ultram) 50 mg PO TID PRN PRN Reason: Pain, moderate (4-7) Last Admin: 10/22/18 12:50 Dose: 50 mg - Labs Labs: 10/25/18 04:35 10/25/18 04:35 Assessment and Plan (1) HCAP (healthcare-associated pneumonia) Status: Acute (2) Pulmonary fibrosis determined by high resolution computed tomography Status: Chronic (3) Acute on chronic respiratory failure with hypoxemia Status: Acute (4) Hypercapnic respiratory failure Status: Chronic (5) ILD (interstitial lung disease) Status: Chronic
[2018-10-26 11:35] LABS: BLOOD UREA NITROGEN 14 mg/dl (9-20); CALCIUM 8.8 mg/dL (8.4-10.2); GFR NON-AFRICAN AMERICAN > 60
[2018-10-26] MEDS: Artificial Tears Opht Soln OU PRN (16:30)
--- NOTE | 2018-10-27 00:41 | PN ---
DATE: 10/26/2018 DAILY PROGRESS NOTE SUBJECTIVE: The patient is seen today, 10/26/2018. He still has shortness of breath both exertional and at rest that required BiPAP. PHYSICAL EXAMINATION: VITAL SIGNS: Blood pressure is 94/54, temperature 97.8, respiratory rate 20, and pulse 80. HEENT: Pupils are equal and reactive to light. Normal-appearing mucosa of the conjunctivae, oropharynx, and nasal membrane mucosa. NECK: Supple. No JVD. No carotid bruits. No lymph nodes. No thyromegaly. CHEST AND LUNGS: Bilateral symmetrical expansion. Few basal rales and scattered rhonchi. CARDIOVASCULAR SYSTEM: PMI not localized. S1 and S2. No additional sounds. ABDOMEN: Normoactive bowel sounds. No tenderness. No organomegaly. No masses. EXTREMITIES: No cyanosis, no clubbing, no edema. Positive deformity of the advanced rheumatoid arthritis in both hands. CENTRAL NERVOUS SYSTEM: Alert, awake, oriented x2 and moves all extremities equally. ASSESSMENT: Hypercapnic respiratory failure, bilateral pneumonia, advanced rheumatoid arthritis, hypertension, coronary artery disease, status post coronary artery bypass graft. PLAN: The patient will have a fiberoptic bronchoscopy done by Dr. Amaya in the morning. Continue current antibiotics. Michaela Wood MD
[2018-10-27] MEDS: Albuterol-Ipratrop 3 mg / 0.5 (3 ml) UD INH SCH ×4 (00:59→19:27)
[2018-10-27] MEDS: Acetylcysteine 20% Inhal Soln (4ml) INH SCH ×4 (00:59→19:27)
[2018-10-27] MEDS: guaiFENesin 600 mg ER Tab PO SCH ×2 (09:06→21:24)
[2018-10-27] MEDS: Cefepime 2 GM in Sodium Chloride 0.9% 100 ML IVPB SCH ×2 (09:07→21:27)
[2018-10-27] MEDS: MethylPREDNISolone 40 mg Vial IVP SCH (09:10)
--- NOTE | 2018-10-27 09:17 | CP.PCM.PN ---
Subjective - Date & Time of Evaluation Date of Evaluation: 10/27/18 Time of Evaluation: 09:14 - Subjective Subjective: Patient is awake, presently using BiPAP mask ventilation. Relates increased cough when lying on his left side with the right chest up. Sputum remains clear or white mucous. Chest x-ray remains essentially the same this morning. Plan is for bronchoscopy this morning to clear the airways of impacted secretions. Will obtain consent now. Objective - Vital Signs/Intake and Output Vital Signs (last 24 hours): Temp Pulse Resp BP Pulse Ox 7.6 F L 65 20 94/57 L 96 10/27/18 08:10 10/27/18 08:10 10/27/18 08:10 10/27/18 08:10 10/27/18 08:10 - Medications Medications: Current Medications Acetaminophen (Tylenol 325mg Tab) 650 mg PO Q6 PRN PRN Reason: Headache Last Admin: 10/26/18 18:57 Dose: 650 mg Acetylcysteine (Acetylcysteine 20%) 2 ml INH RQ6 [facility] Last Admin: 10/27/18 07:57 Dose: 2 ml Albuterol/Ipratropium (Duoneb 3 Mg/0.5 Mg (3 Ml) Ud) 3 ml INH RQ6 [facility] Last Admin: 10/27/18 07:56 Dose: 3 ml Artificial Tears (Artificial Tears) 2 drop OU Q4 PRN PRN Reason: Dry eyes Last Admin: 10/26/18 16:30 Dose: 2 drop Atorvastatin Calcium (Lipitor) 20 mg PO HS [facility] Last Admin: 10/26/18 21:51 Dose: 20 mg Baclofen (Lioresal) 10 mg PO DAILY [facility] Last Admin: 10/27/18 09:06 Dose: Not Given Benzonatate (Tessalon Perles) 200 mg PO Q8 PRN PRN Reason: Cough Last Admin: 10/22/18 12:50 Dose: 200 mg Bisoprolol Fumarate (Zebeta) 2.5 mg PO DAILY [facility] Last Admin: 10/27/18 09:07 Dose: Not Given Calcium Carbonate (Oscal) 500 mg PO DAILY [facility] Last Admin: 10/27/18 09:07 Dose: Not Given Clopidogrel Bisulfate (Plavix) 75 mg PO QWK [facility] Docusate Sodium (Colace) 100 mg PO BID [facility] Last Admin: 10/27/18 09:06 Dose: Not Given Fenofibrate (Tricor) 145 mg PO DAILY [facility] Last Admin: 10/27/18 09:10 Dose: Not Given Gabapentin (Neurontin) 300 mg PO BID [facility] Last Admin: 10/27/18 09:06 Dose: Not Given Guaifenesin (Mucinex La) 600 mg PO Q12 [facility] Last Admin: 10/27/18 09:06 Dose: Not Given Heparin Sodium (Porcine) (Heparin) 5,000 units SC Q8 [facility]; Protocol Last Admin: 10/26/18 16:31 Dose: 5,000 units Hydroxychloroquine Sulfate (Plaquenil) 200 mg PO BID [facility]; Protocol Last Admin: 10/27/18 09:07 Dose: Not Given Vancomycin HCl 1 gm/ Sodium (Chloride) 250 mls @ 166.667 mls/hr IVPB Q12 [facility]; Protocol Last Admin: 10/27/18 09:08 Dose: 166.667 mls/hr Cefepime HCl 2 gm/ Sodium (Chloride) 100 mls @ 100 mls/hr IVPB Q12 [facility]; Protocol Last Admin: 10/27/18 09:07 Dose: 100 mls/hr Lidocaine (Lidoderm) 1 ea TD DAILY PRN PRN Reason: Pain, Mild (1-3) Methylprednisolone (Solu-Medrol) 30 mg IVP DAILY [facility] Last Admin: 10/27/18 09:10 Dose: 30 mg Montelukast Sodium (Singulair) 10 mg PO HS [facility] Last Admin: 10/26/18 21:51 Dose: 10 mg Pantoprazole Sodium (Protonix Ec Tab) 20 mg PO DAILY PRN PRN Reason: stomach pain Last Admin: 10/23/18 09:09 Dose: 20 mg Tamsulosin HCl (Flomax) 0.4 mg PO DAILY [facility] Last Admin: 10/27/18 09:06 Dose: Not Given Tramadol HCl (Ultram) 50 mg PO TID PRN PRN Reason: Pain, moderate (4-7) Last Admin: 10/22/18 12:50 Dose: 50 mg - Labs Labs: 10/25/18 04:35 10/26/18 11:03 Assessment and Plan (1) HCAP (healthcare-associated pneumonia) Status: Acute (2) Pulmonary fibrosis determined by high resolution computed tomography Status: Chronic (3) Acute on chronic respiratory failure with hypoxemia Status: Acute (4) Hypercapnic respiratory failure Status: Chronic (5) ILD (interstitial lung disease) Status: Chronic
[2018-10-27] MEDS ORDERED: EPINEPHrine 1 mg/ml (1:1000) Inj ONE (09:26)
[2018-10-27] MEDS ORDERED: Lidocaine 1% Inj (20ml) ONE (09:26)
[2018-10-27 09:34] LABS: ABG ALLEN TEST YES; ARTERIAL BLOOD GAS HCO3 40.3 mmol/L (21-28); ARTERIAL BLOOD GAS O2 CAPACITY 12.4 mL/dL (16-24); ARTERIAL BLOOD GAS O2 CONTENT 11.9 ML/dL (15-23); ARTERIAL BLOOD GAS O2 SAT 95.8 % (95-98); ARTERIAL BLOOD GAS PCO2 65 mm/Hg (35-45); ARTERIAL BLOOD GAS PH 7.46 (7.35-7.45); ARTERIAL BLOOD GAS PO2 58 mm/Hg (80-100); ARTERIAL BLOOD GAS TCO2 48.2 mmol/L (22-28)
[2018-10-27] MEDS ORDERED: Lactated Ringer's 500 ML IV ONE (10:00)
[2018-10-27 10:03] LABS: INR 0.9; PROTHROMBIN TIME 10.4 Seconds (9.8-13.1)
[2018-10-27] MEDS ORDERED: Midazolam 2 MG/2 ML VIAL ONE (10:05)
[2018-10-27] MEDS ORDERED: EPINEPHrine 1 mg/ml (1:1000) Inj IV ONE (10:05)
[2018-10-27] MEDS ORDERED: Propofol 10 mg/ml Inj (20 ML) ONE (10:05)
[2018-10-27] MEDS ORDERED: Lidocaine 2% Jelly (5 ml) TOP ONE (10:05)
[2018-10-27] MEDS ORDERED: Lidocaine 1% Inj (20ml) TP ONE ×2 (10:05)
[2018-10-27] MEDS ORDERED: Succinylcholine 200 mg/10 ml Inj IV ONE (10:11)
[2018-10-27] MEDS: Lactated Ringer's 1,000 ML IV SCH (10:37)
--- NOTE | 2018-10-27 11:46 | RAD ---
Date of service: 10/27/2018 HISTORY: post bronchoscopy for atelectasis COMPARISON: 10/27/2018 at 7:20 a.m. FINDINGS: LUNGS: Extensive opacity at right lung base. There is infiltrate at the left base. These findings are unchanged compared to the prior examination. PLEURA: Possible right pleural effusion. No evidence of left pleural effusion. No pneumothorax. No change compared to prior examination. CARDIOVASCULAR: No aortic atherosclerotic calcification present. Normal cardiac size. No pulmonary vascular congestion. OSSEOUS STRUCTURES: Thoracic spinal fixation with pedicle screws and rods. VISUALIZED UPPER ABDOMEN: Normal. OTHER FINDINGS: None. IMPRESSION: No evidence of pneumothorax status post bronchoscopy. Extensive opacity/consolidation at right base. Left basilar infiltrate. Possible right pleural effusion.
--- NOTE | 2018-10-27 12:50 | RAD ---
Date of service: 10/27/2018 HISTORY: atelectasis COMPARISON: 10/23/2018 at 7:32 a.m. FINDINGS: LUNGS: Extensive opacity at right lung base without evidence of aerated lung. Linear scar/atelectasis at left base PLEURA: Possible right pleural effusion. No evidence of left pleural effusion. No pneumothorax. CARDIOVASCULAR: Atherosclerotic calcification noted in the aortic arch. Normal cardiac size. No pulmonary vascular congestion. OSSEOUS STRUCTURES: Thoracic spinal fixation with pedicle screws and rods. VISUALIZED UPPER ABDOMEN: Normal. OTHER FINDINGS: None. IMPRESSION: Extensive opacity at right lung base common nonspecific. Left basilar linear scar/atelectasis. Possible right pleural effusion no significant change from 10/23/2018.
[2018-10-28] MEDS: Lactated Ringer's 1,000 ML IV SCH (00:05)
[2018-10-28] MEDS: Acetylcysteine 20% Inhal Soln (4ml) INH SCH ×4 (01:02→19:05)
[2018-10-28] MEDS: Albuterol-Ipratrop 3 mg / 0.5 (3 ml) UD INH SCH ×4 (01:02→19:05)
[2018-10-28] MEDS: guaiFENesin 600 mg ER Tab PO SCH ×2 (09:18→20:38)
[2018-10-28] MEDS: Pantoprazole 20 mg EC Tab PO PRN (09:18)
--- NOTE | 2018-10-28 09:19 | RAD ---
Date of service: 10/28/2018 HISTORY: atelectasis COMPARISON: Comparison chest 10/27/2018. FINDINGS: Note the examination is somewhat limited due with partial obscuration of the right upper lung field by overlying hardware LUNGS: redemonstrated is near complete opacification of the right hemithorax likely representing some combination of atelectasis/infiltrate and effusion. Mild left basilar atelectasis PLEURA: No significant pleural effusion identified, no pneumothorax apparent. CARDIOVASCULAR: No aortic atherosclerotic calcification present. Normal cardiac size. No pulmonary vascular congestion. OSSEOUS STRUCTURES: No change bilateral short segment Ocampo rods upper thoracic region. VISUALIZED UPPER ABDOMEN: Normal. OTHER FINDINGS: None. IMPRESSION: Redemonstrated is the is near complete opacification of the right hemithorax likely representing some combination of atelectasis/infiltrate and effusion. Mild left basilar atelectasis
[2018-10-28] MEDS: Cefepime 2 GM in Sodium Chloride 0.9% 100 ML IVPB SCH ×2 (09:21→21:57)
[2018-10-28] MEDS: MethylPREDNISolone 40 mg Vial IVP SCH (09:22)
[2018-10-28 11:12] LABS: HEMOGLOBIN 9.4 g/dL (12.0-18.0); MEAN CELL VOLUME 101.7 fl (80.0-94.0); MEAN CORPUSCULAR HEMOGLOBIN 31.6 pg (27.0-31.0); MEAN CORPUSCULAR HGB CONC 31.1 g/dL (33.0-37.0); RBC 2.98 Mil/uL (4.40-5.90); RED CELL DISTRIBUTION WIDTH 16.6 % (11.5-14.5)
[2018-10-28] MEDS: Artificial Tears Opht Soln OU PRN (17:27)
--- NOTE | 2018-10-28 23:43 | PN ---
DATE: 10/28/2018 SUBJECTIVE: The patient is seen today on 10/28/2018. He is still in mild shortness of breath. Status post fiberoptic bronchoscopy. The patient is complaining of neck pain. PHYSICAL EXAMINATION: VITAL SIGNS: Blood pressure is 112/61, temperature 98.2, respiratory rate 16, and pulse 76. HEENT: Pupils equal, reactive to light. Normal-appearing mucosa of the conjunctivae, oropharynx, and nasal membrane mucosa. NECK: Supple. No JVD. No carotid bruit. No lymph node. No thyromegaly. CHEST AND LUNGS: Bilateral symmetrical expansion. Scattered rhonchi all over lung amos. CARDIOVASCULAR SYSTEM: PMI not localized. S1, S2. No additional sounds. ABDOMEN: Normoactive bowel sounds. No tenderness. No organomegaly. No masses. EXTREMITIES: No cyanosis, no clubbing, no edema. CENTRAL NERVOUS SYSTEM: Alert, awake, oriented x2. No neurological deficits could be appreciated. ASSESSMENT: Hypercapnic respiratory failure, advanced rheumatoid arthritis with possible right lung pathology secondary to rheumatoid disease, coronary artery disease, status post coronary artery bypass graft, and hypertension. PLAN: We will follow Pulmonary recommendations, and continue current medications. Michaela Wood MD
[2018-10-29] MEDS: Albuterol-Ipratrop 3 mg / 0.5 (3 ml) UD INH SCH ×4 (01:04→19:52)
[2018-10-29] MEDS: Acetylcysteine 20% Inhal Soln (4ml) INH SCH ×3 (01:04→19:52)
[2018-10-29] MEDS: MethylPREDNISolone 40 mg Vial IVP SCH (09:14)
[2018-10-29] MEDS: Pantoprazole 20 mg EC Tab PO PRN (09:15)
[2018-10-29] MEDS: guaiFENesin 600 mg ER Tab PO SCH ×2 (09:16→20:06)
[2018-10-29] MEDS: Artificial Tears Opht Soln OU PRN (20:06)
[2018-10-30] MEDS: Albuterol-Ipratrop 3 mg / 0.5 (3 ml) UD INH SCH ×3 (01:02→13:25)
--- NOTE | 2018-10-30 01:19 | PN ---
DATE: 10/29/2018 SUBJECTIVE: The patient is seen today, 10/29/2018. He still has exertional shortness of breath and need for BiPAP. PHYSICAL EXAMINATION: VITAL SIGNS: Blood pressure is 104/66, temperature 98.1, respiratory rate 18, and pulse 76. HEENT: Pupils equal, reactive to light. Normal-appearing mucosa of the conjunctivae, oropharynx and nasal membrane mucosa. NECK: Supple. No JVD. No carotid bruit. No lymph node. No thyromegaly. CHEST AND LUNGS: Bilateral symmetrical expansion. Good air exchange. No rales, no rhonchi. CARDIOVASCULAR SYSTEM: PMI not localized. S1, S2. No additional sounds. ABDOMEN: Normoactive bowel sounds. No tenderness. No organomegaly. No masses. EXTREMITIES: No cyanosis, no clubbing, no edema. CENTRAL NERVOUS SYSTEM: Alert, awake, oriented x2. No neurological deficit could be appreciated. Moves all extremities equally. ASSESSMENT: Hypercapnic respiratory failure, chronic obstructive pulmonary disease, advanced rheumatoid arthritis, hypertension, type 2 diabetes mellitus. PLAN: Continue BiPAP as needed, continue current medications and taper steroids, physical therapy, and discharged to transitional care unit for deconditioning. Michaela Wood MD
[2018-10-30] MEDS: Acetylcysteine 20% Inhal Soln (4ml) INH SCH ×2 (07:11→13:25)
[2018-10-30] MEDS: MethylPREDNISolone 40 mg Vial IVP SCH (08:42)
[2018-10-30] MEDS: guaiFENesin 600 mg ER Tab PO SCH (08:43)
--- NOTE | 2018-10-30 10:03 | RAD ---
Date of service: 10/30/2018 HISTORY: atelectasis COMPARISON: 10/28/2018 FINDINGS: LUNGS: There is interval worsening of opacification of the right lung with near complete opacification and aeration small area in the right lateral upper lobe. There is redemonstration of confluent airspace disease in the left lower lobe. PLEURA: No pleural effusions or pneumothorax. CARDIOVASCULAR: No interval change. OSSEOUS STRUCTURES: Stable appearance of posterior fixation hardware in the upper and midthoracic spine. VISUALIZED UPPER ABDOMEN: Normal. OTHER FINDINGS: None. IMPRESSION: Worsening suspected atelectasis in the right lung. Confluent airspace disease in the left lower lobe may represent atelectasis/ pneumonia.
--- NOTE | 2018-10-30 10:41 | CP.PCM.PN ---
Subjective - Date & Time of Evaluation Date of Evaluation: 10/30/18 Time of Evaluation: 10:41 - Subjective Subjective: Lying almost flat in bed. Complains of persistent cough. Remains afebrile, SpO2 95-100%. PCXR shows persistent opacification of RLL/RML as well as patchy infiltrate in LLL. Bronchial washings cultured, 'normal respiratory munir', fungus culture pending. Neck is supple and trachea deviated towards the right. No dullness on percussion anteriorly. Breath sounds diminished anteriorly, more right than left. Posteriorly harsh bronchial breath sounds with coarse rhonchi on the right. Rhonchi present posteriorly on the left with faint bronchial sounds left base. No audible wheezes. With placement in Left Lateral position and mild chest percussion he did expectorate moderate amount of thick mucoid sputum with a faint yellowish color. No hemoptysis. No purulency. Continue present medical regimen. Counseled regarding lateral decubitus positioning for cough effectiveness. Awaiting fungal cultures. Prognosis is poor. Objective - Vital Signs/Intake and Output Vital Signs (last 24 hours): Temp Pulse Resp BP Pulse Ox 98.1 F 75 18 103/63 95 10/30/18 07:57 10/30/18 07:57 10/30/18 07:57 10/30/18 07:57 10/30/18 07:57 - Medications Medications: Current Medications Acetaminophen (Tylenol 325mg Tab) 650 mg PO Q6 PRN PRN Reason: Headache Last Admin: 10/30/18 09:01 Dose: 650 mg Acetylcysteine (Acetylcysteine 20%) 2 ml INH RQ6 [facility] Last Admin: 10/30/18 07:11 Dose: Not Given Albuterol/Ipratropium (Duoneb 3 Mg/0.5 Mg (3 Ml) Ud) 3 ml INH RQ6 [facility] Last Admin: 10/30/18 07:10 Dose: 3 ml Artificial Tears (Artificial Tears) 2 drop OU Q4 PRN PRN Reason: Dry eyes Last Admin: 10/29/18 20:06 Dose: 2 drop Atorvastatin Calcium (Lipitor) 20 mg PO HS [facility] Last Admin: 10/29/18 21:58 Dose: 20 mg Baclofen (Lioresal) 10 mg PO DAILY [facility] Last Admin: 10/30/18 08:44 Dose: 10 mg Benzonatate (Tessalon Perles) 200 mg PO Q8 PRN PRN Reason: Cough Last Admin: 10/22/18 12:50 Dose: 200 mg Bisoprolol Fumarate (Zebeta) 2.5 mg PO DAILY [facility] Last Admin: 10/30/18 08:43 Dose: 2.5 mg Calcium Carbonate (Oscal) 500 mg PO DAILY [facility] Last Admin: 10/30/18 08:41 Dose: 500 mg Clopidogrel Bisulfate (Plavix) 75 mg PO QWK [facility] Docusate Sodium (Colace) 100 mg PO BID [facility] Last Admin: 10/30/18 08:43 Dose: 100 mg Fenofibrate (Tricor) 145 mg PO DAILY [facility] Last Admin: 10/30/18 08:42 Dose: 145 mg Gabapentin (Neurontin) 300 mg PO BID [facility] Last Admin: 10/30/18 08:43 Dose: 300 mg Guaifenesin (Mucinex La) 600 mg PO Q12 [facility] Last Admin: 10/30/18 08:43 Dose: 600 mg Heparin Sodium (Porcine) (Heparin) 5,000 units SC Q8 [facility]; Protocol Last Admin: 10/30/18 08:42 Dose: 5,000 units Hydroxychloroquine Sulfate (Plaquenil) 200 mg PO BID [facility]; Protocol Last Admin: 10/30/18 08:42 Dose: 200 mg Lidocaine (Lidoderm) 1 ea TD DAILY PRN PRN Reason: Pain, Mild (1-3) Last Admin: 10/30/18 08:44 Dose: 1 ea Methylprednisolone (Solu-Medrol) 30 mg IVP DAILY [facility] Last Admin: 10/30/18 08:42 Dose: 30 mg Montelukast Sodium (Singulair) 10 mg PO HS [facility] Last Admin: 10/29/18 21:58 Dose: 10 mg Pantoprazole Sodium (Protonix Ec Tab) 20 mg PO DAILY PRN PRN Reason: stomach pain Last Admin: 10/29/18 09:15 Dose: 20 mg Tamsulosin HCl (Flomax) 0.4 mg PO DAILY [facility] Last Admin: 10/30/18 08:42 Dose: 0.4 mg - Labs Labs: 10/28/18 09:57 10/26/18 11:03 PT 10.4 Seconds (9.8-13.1) 10/27/18 09:54 INR 0.9 10/27/18 09:54 Assessment and Plan (1) HCAP (healthcare-associated pneumonia) Status: Acute (2) Pulmonary fibrosis determined by high resolution computed tomography Status: Chronic (3) Acute on chronic respiratory failure with hypoxemia Status: Acute (4) Hypercapnic respiratory failure Status: Chronic (5) ILD (interstitial lung disease) Status: Chronic
[2018-10-30 15:49] VITALS: BP 90/54; PULSE 79; RESP 20; TEMP 98.3; O2SAT 98
[2018-10-30] MEDS: Pantoprazole 20 mg EC Tab PO PRN (16:47)
--- NOTE | 2018-10-31 14:50 | PQF ---
PROVIDER RESPONSE TEXT: Pancytopenia REVIEWER QUERY TEXT: Documentation Clarification Your help is requested in clarifying the following clinical documentation, if you can please further specify in the medical record and discharge summary. CBC is being monitored. Would you please clarify if there is an associated diagnosis or not to go mechelle ng with the following lab findings: WBC 3.0 PLT 89 The patient's Clinical Indicators include: WBC 3.0 PLT 89 CBC being monitored. Query created by: Payal Patel on 10/30/2018 11:33 AM Electronically signed by: Michaela Wood MD 10/31/2018 2:48 PM
== END 2018-10-30 17:55 | DRG 193 ==
LOC: H.ER 08:22 → H.ERHOLD 10:20 → H.TEL 13:54
PROVIDERS: ADMIT Internal Medicine; ATTEND Internal Medicine
PROC: 3E0F7GC Introduction of Other Therapeutic Substance into Respiratory Tract, Via Natural or Artificial Opening (ICD-10-PCS; 2018-10-21)
PROC: 5A09457 Assistance with Respiratory Ventilation, 24-96 Consecutive Hours, Continuous Positive Airway Pressure (ICD-10-PCS; 2018-10-21)
PROC: 0BC38ZZ Extirpation of Matter from Right Main Bronchus, Via Natural or Artificial Opening Endoscopic (ICD-10-PCS; principal; 2018-10-27 10:00)
DX: J15.9 Unspecified bacterial pneumonia (principal); J96.21 Acute and chronic respiratory failure with hypoxia; J96.22 Acute and chronic respiratory failure with hypercapnia; J44.0 Chronic obstructive pulmonary disease with (acute) lower respiratory infection; J98.11 Atelectasis; D61.818 Other pancytopenia; T17.590A Other foreign object in bronchus causing asphyxiation, initial encounter; J44.1 Chronic obstructive pulmonary disease with (acute) exacerbation; J84.10 Pulmonary fibrosis, unspecified; M06.842 Other specified rheumatoid arthritis, left hand; M06.841 Other specified rheumatoid arthritis, right hand; Y95 Nosocomial condition; Z88.0 Allergy status to penicillin; I25.10 Atherosclerotic heart disease of native coronary artery without angina pectoris; G47.33 Obstructive sleep apnea (adult) (pediatric); F02.80 Dementia in other diseases classified elsewhere, unspecified severity, without behavioral disturbance, psychotic disturbance, mood disturbance, and anxiety; G30.9 Alzheimer's disease, unspecified; I10 Essential (primary) hypertension; E11.9 Type 2 diabetes mellitus without complications; E78.5 Hyperlipidemia, unspecified; E78.00 Pure hypercholesterolemia, unspecified; Z99.81 Dependence on supplemental oxygen; Z95.1 Presence of aortocoronary bypass graft; Z95.5 Presence of coronary angioplasty implant and graft; Z87.01 Personal history of pneumonia (recurrent); Z87.891 Personal history of nicotine dependence

== ENCOUNTER 2018-10-30 14:35 | Inpatient (IN) | payer OTHER, MEDICAID ==
[2018-10-30 18:11] VITALS: BMI 23.3
[2018-10-30] MEDS: Albuterol-Ipratrop 3 mg / 0.5 (3 ml) UD INH SCH (19:31)
[2018-10-30] MEDS: Acetylcysteine 20% Inhal Soln (4ml) INH SCH (19:31)
[2018-10-30] MEDS: guaiFENesin 600 mg ER Tab PO SCH (21:01)
[2018-10-31] MEDS: Acetylcysteine 20% Inhal Soln (4ml) INH SCH ×4 (01:00→19:30)
[2018-10-31] MEDS: Albuterol-Ipratrop 3 mg / 0.5 (3 ml) UD INH SCH ×4 (01:00→19:29)
[2018-10-31] MEDS: guaiFENesin 600 mg ER Tab PO SCH ×2 (08:20→21:54)
[2018-10-31] MEDS: MethylPREDNISolone 40 mg Vial IVP SCH (08:21)
[2018-10-31] MEDS: Pantoprazole 20 mg EC Tab PO PRN (08:24)
[2018-10-31] MEDS: Lidocaine 5% Patch TD PRN (16:15)
[2018-10-31] MEDS: Insulin Regular 100 units/ml SC SCH (22:00)
[2018-11-01] MEDS: Albuterol-Ipratrop 3 mg / 0.5 (3 ml) UD INH SCH ×4 (02:37→19:35)
[2018-11-01] MEDS: Acetylcysteine 20% Inhal Soln (4ml) INH SCH ×4 (02:37→19:35)
[2018-11-01] MEDS: Insulin Regular 100 units/ml SC SCH ×4 (06:42→21:20)
[2018-11-01] MEDS: guaiFENesin 600 mg ER Tab PO SCH ×2 (08:34→21:25)
[2018-11-01] MEDS: MethylPREDNISolone 40 mg Vial IVP SCH (08:34)
[2018-11-01] MEDS: Pantoprazole 20 mg EC Tab PO PRN (09:56)
--- NOTE | 2018-11-01 15:41 | CP.PCM.CON ---
History of Present Illness - History of Present Illness History of Present Illness: This 73 year old male was admitted to acute medicine with pneumonia and decompensated respiratory failure. He was treated with antibiotics and steroids as well as aerosol therapy and NPPV. He underwent flexible bronchoscopy on 10/27/18 for removal of impacted mucous in the right main bronchus. He suffers from chronic hypercapnic and hypoxemic ventilatory failure, and has been using BiPAP mask ventilation while hospitalized as well as at home. Past Patient History - Infectious Disease Hx of Infectious Diseases: None - Past Medical History & Family History Past Medical History?: Yes - Past Social History Smoking Status: Former Smoker - CARDIAC Hx Congestive Heart Failure: No Hx Hypercholesterolemia: Yes Hx Hypertension: Yes Other/Comment: Coronary artery disease with prior bypass grafting. - PULMONARY Hx Asthma: Yes Hx Bronchitis: Yes Hx Chronic Obstructive Pulmonary Disease (COPD): Yes Hx Pneumonia: Yes Hx Sleep Apnea: Yes Other/Comment: Interstitial lung disease with pulmonary fibrosis. - NEUROLOGICAL Hx Dementia: Yes Hx Seizures: No - HEENT Hx HEENT Problems: No - RENAL Hx Chronic Kidney Disease: No - ENDOCRINE/METABOLIC Hx Diabetes Mellitus Type 2: Yes - HEMATOLOGICAL/ONCOLOGICAL Hx Human Immunodeficiency Virus (HIV): No Other/Comment: Thrombocytopenia - INTEGUMENTARY Hx Dermatological Problems: No - MUSCULOSKELETAL/RHEUMATOLOGICAL Hx Falls: Yes Hx Herniated Disk: Yes Other/Comment: T-spine herniation and compression fx - GASTROINTESTINAL Hx Gastrointestinal Disorders: No - GENITOURINARY/GYNECOLOGICAL Hx Genitourinary Disorders: No - PSYCHIATRIC Hx Psychophysiologic Disorder: No Hx Substance Use: No - SURGICAL HISTORY Hx Coronary Artery Bypass Graft: Yes (1999) Hx Coronary Stent: Yes Hx Orthopedic Surgery: Yes (Hip) - ANESTHESIA Hx Anesthesia: Yes Hx Anesthesia Reactions: No Hx Malignant Hyperthermia: No Meds Allergies/Adverse Reactions: Allergies Allergy/AdvReac Type Severity Reaction Status Date / Time Penicillins Allergy Unknown RASH Verified 10/30/18 15:52 - Medications Medications: Current Medications Acetaminophen (Tylenol 325mg Tab) 650 mg PO Q6 PRN PRN Reason: Headache Last Admin: 11/01/18 11:20 Dose: 650 mg Acetylcysteine (Acetylcysteine 20%) 2 ml INH RQ6 [facility] Last Admin: 11/01/18 13:17 Dose: 2 ml Albuterol/Ipratropium (Duoneb 3 Mg/0.5 Mg (3 Ml) Ud) 3 ml INH RQ6 [facility] Last Admin: 11/01/18 13:17 Dose: 3 ml Artificial Tears (Artificial Tears) 2 drop OU Q4 PRN PRN Reason: Dry eyes Atorvastatin Calcium (Lipitor) 20 mg PO HS [facility] Last Admin: 10/31/18 21:54 Dose: 20 mg Baclofen (Lioresal) 10 mg PO DAILY [facility] Last Admin: 11/01/18 08:33 Dose: 10 mg Benzonatate (Tessalon Perles) 200 mg PO Q8 PRN PRN Reason: Cough Bisoprolol Fumarate (Zebeta) 2.5 mg PO DAILY [facility] Last Admin: 11/01/18 08:35 Dose: 2.5 mg Calcium Carbonate (Oscal) 500 mg PO DAILY [facility] Last Admin: 11/01/18 08:35 Dose: 500 mg Clopidogrel Bisulfate (Plavix) 75 mg PO QWK [facility] Docusate Sodium (Colace) 100 mg PO BID [facility] Last Admin: 11/01/18 08:33 Dose: 100 mg Fenofibrate (Tricor) 145 mg PO DAILY [facility] Last Admin: 11/01/18 08:34 Dose: 145 mg Gabapentin (Neurontin) 300 mg PO BID [facility] Last Admin: 11/01/18 08:34 Dose: 300 mg Guaifenesin (Mucinex La) 600 mg PO Q12 [facility] Last Admin: 11/01/18 08:34 Dose: 600 mg Heparin Sodium (Porcine) (Heparin) 5,000 units SC Q8 [facility]; Protocol Last Admin: 11/01/18 08:32 Dose: 5,000 units Hydroxychloroquine Sulfate (Plaquenil) 200 mg PO DAILY [facility]; Protocol Last Admin: 11/01/18 08:35 Dose: 200 mg Insulin Human Regular (Humulin R) 0 units SC ACHS [facility]; Protocol Last Admin: 11/01/18 10:59 Dose: 3 unit Lidocaine (Lidoderm) 1 ea TD DAILY PRN PRN Reason: Pain, Mild (1-3) Last Admin: 10/31/18 16:15 Dose: 1 ea Methylprednisolone (Solu-Medrol) 30 mg IVP DAILY [facility] Last Admin: 11/01/18 08:34 Dose: 30 mg Montelukast Sodium (Singulair) 10 mg PO HS [facility] Last Admin: 10/31/18 21:54 Dose: 10 mg Pantoprazole Sodium (Protonix Ec Tab) 20 mg PO DAILY PRN PRN Reason: stomach pain Last Admin: 11/01/18 09:56 Dose: 20 mg Tamsulosin HCl (Flomax) 0.4 mg PO DAILY [facility] Last Admin: 11/01/18 08:33 Dose: 0.4 mg Physical Exam - Additional Findings Additional findings: Chronically ill-appearing male lying in bed supine wearing nasal canula. Cooperative with the examination. Answers questions appropriately. Joint deformity of both hands is noted. Scattered ecchymoses. Cushingoid facies. No cyanosis. Trace dependent edema. Neck is supple and trachea is midline. No palpable lymphadenopathy. No dullness to percussion of the anterior thorax. No subcutaneous emphysema. Breath sounds are diminished bilaterally with dry to medium early rales in the lower lung zones. Posteriorly the breath sounds are more significantly diminished with coarse rales heard in lower lobes of both lungs. No audible wheezing. No bronchial breath sounds appreciated. Heart sounds are distant and rhythm is regular. Abdomen is soft and nontender. Bowel sounds are present. Results - Vital Signs Recent Vital Signs: Last Vital Signs Temp 98.6 F 11/01/18 15:14 Pulse 77 11/01/18 15:14 Resp 20 11/01/18 15:14 BP 94/54 L 11/01/18 15:14 Pulse Ox 94 L 11/01/18 15:14 - Labs Labs: Laboratory Results - last 24 hr 10/31/18 10/31/18 10/31/18 10:51 16:03 21:02 POC Glucose (mg/dL) 130 H 214 H 168 H 11/01/18 11/01/18 11/01/18 05:39 10:55 15:08 POC Glucose (mg/dL) 133 H 296 H 100 Assessment & Plan (1) Chronic respiratory failure with hypoxia and hypercapnia Status: Chronic Priority: High (2) ILD (interstitial lung disease) Status: Chronic Priority: High - Assessment and Plan (Free Text) Plan: Continue all medical and aerosol therapies. Gradual decrease in steroid dose and switch to oral. NPPV with BiPAP mask type of ventilation nocturnally and PRN during the day. - Date & Time Date: 11/01/18 Time: 15:39
[2018-11-01] MEDS: Artificial Tears Opht Soln OU PRN (21:22)
[2018-11-01] MEDS: Promethazine DM 12.5 mg-30 mg/10 ml Syrup PO SCH (21:25)
[2018-11-02] MEDS: Acetylcysteine 20% Inhal Soln (4ml) INH SCH ×4 (00:59→19:18)
[2018-11-02] MEDS: Albuterol-Ipratrop 3 mg / 0.5 (3 ml) UD INH SCH ×4 (00:59→19:18)
[2018-11-02] MEDS ORDERED: Albuterol-Ipratrop 3 mg / 0.5 (3 ml) UD INH STA (03:50)
--- NOTE | 2018-11-02 04:31 | HP ---
Late entry for history and physical. HISTORY OF PRESENT ILLNESS: The patient was seen on 10/31/2018. He is a 73-year-old [place] male with history of multiple medical problems including severe COPD with hypercapnic respiratory failure, was admitted to transitional care unit for deconditioning, physical therapy, and completion of treatment. The patient still has exertional shortness of breath and he is on steroids, bronchodilators, and BiPAP as per pulmonary consult. REVIEW OF SYSTEMS: Other review of systems is generalized weakness and unsteady gait. ALLERGIES: Positive for penicillin. MEDICATIONS: As per MAR were reviewed and ordered. SOCIAL HISTORY: Ex-smoker. No EtOH or substance abuse. FAMILY HISTORY: Noncontributory. PAST MEDICAL HISTORY: COPD on home oxygen, coronary artery disease, status post coronary artery bypass graft, hypertension, advanced rheumatoid arthritis. PHYSICAL EXAMINATION: GENERAL: The patient is in bed, not in any cardiopulmonary distress, on oxygen by nasal cannula. VITAL SIGNS: Blood pressure was 95/60, temperature 98, respiratory rate 20, and pulse 80. HEENT: Pupils equal, reactive to light. Normal-appearing mucosa of the conjunctivae, oropharynx and nasal membrane mucosa. NECK: Supple. No JVD. No carotid bruit. No lymph node. No thyromegaly. CHEST AND LUNGS: Bilateral symmetrical expansion. Scattered rhonchi and coarse rales change with cough. CARDIOVASCULAR SYSTEM: PMI not localized. S1, S2. No additional sounds. ABDOMEN: Normoactive bowel sounds. No tenderness. No organomegaly. No masses. EXTREMITIES: No cyanosis, no clubbing, no edema. CENTRAL NERVOUS SYSTEM: Alert, awake, oriented x2. The patient moves all extremities equally. ASSESSMENT: Hypercapnic respiratory failure, severe chronic obstructive pulmonary disease, advanced rheumatoid arthritis, hypertension. PLAN: Continue current medications and steroids. Continue bronchodilators and follow sales ledger administrator's recommendation regarding BiPAP, physical therapy and occupational therapy. Michaela Wood MD
[2018-11-02] MEDS: Insulin Regular 100 units/ml SC SCH ×4 (06:33→21:21)
[2018-11-02] MEDS: MethylPREDNISolone 40 mg Vial IVP SCH (08:11)
[2018-11-02] MEDS: Pantoprazole 20 mg EC Tab PO PRN (08:12)
[2018-11-02] MEDS: guaiFENesin 600 mg ER Tab PO SCH (08:12)
--- NOTE | 2018-11-02 08:33 | PN ---
DATE: 11/01/2018 SUBJECTIVE: The patient is seen today 11/01/2018. He is compliant to physical therapy and occupational therapy. OBJECTIVE: VITAL SIGNS: Blood pressure 94/54, temperature 98.6, respiratory rate 20 and pulse 77. HEENT: Pupils equal, reactive to light. Normal-appearing mucosa of the conjunctivae, oropharynx and nasal membrane mucosa. NECK: Supple. No JVD. No carotid bruit. No lymph node. No thyromegaly. CHEST/LUNGS: Bilateral symmetrical expansion. Good air exchange. Few scattered rhonchi. No rales. CARDIOVASCULAR SYSTEM: PMI not localized. S1, S2. No additional sounds. ABDOMEN: Normoactive bowel sounds. No tenderness. No organomegaly. No masses. EXTREMITIES: No cyanosis, no clubbing, no edema. TACK CUTTER: Alert, awake, oriented x2 and no neurological deficit could be appreciated. ASSESSMENT: Hypercapnic respiratory failure, severe chronic obstructive pulmonary disease on home oxygen, hypertension, coronary artery disease status post coronary artery bypass graft. PLAN: Continue current medications and physical therapy and BiPAP as needed. Michaela Wood MD
--- NOTE | 2018-11-02 10:50 | CP.PCM.PN ---
Subjective - Date & Time of Evaluation Date of Evaluation: 11/02/18 Time of Evaluation: 10:48 - Subjective Subjective: Awake and alet. Maybe a little more comfortable. Slept fairly well last night. Does not use BiPAP on a consistent basis at night when he is feeling better. Will continue Promethazine DM at HS (seems to work better for him). Objective - Vital Signs/Intake and Output Vital Signs (last 24 hours): Temp Pulse Resp BP Pulse Ox 97.7 F 73 18 97/59 L 94 L 11/02/18 08:04 11/02/18 08:04 11/02/18 08:04 11/02/18 08:04 11/02/18 08:04 - Medications Medications: Current Medications Acetaminophen (Tylenol 325mg Tab) 650 mg PO Q6 PRN PRN Reason: Headache Last Admin: 11/02/18 06:14 Dose: 650 mg Acetylcysteine (Acetylcysteine 20%) 2 ml INH RQ6 [facility] Last Admin: 11/02/18 08:06 Dose: 2 ml Albuterol/Ipratropium (Duoneb 3 Mg/0.5 Mg (3 Ml) Ud) 3 ml INH RQ6 [facility] Last Admin: 11/02/18 08:05 Dose: 3 ml Artificial Tears (Artificial Tears) 2 drop OU Q4 PRN PRN Reason: Dry eyes Last Admin: 11/01/18 21:22 Dose: 2 drop Atorvastatin Calcium (Lipitor) 20 mg PO HS [facility] Last Admin: 11/01/18 21:24 Dose: 20 mg Baclofen (Lioresal) 10 mg PO DAILY [facility] Last Admin: 11/02/18 08:12 Dose: 10 mg Benzonatate (Tessalon Perles) 200 mg PO Q8 PRN PRN Reason: Cough Last Admin: 11/02/18 01:20 Dose: 200 mg Bisoprolol Fumarate (Zebeta) 2.5 mg PO DAILY [facility] Last Admin: 11/02/18 08:12 Dose: 2.5 mg Calcium Carbonate (Oscal) 500 mg PO DAILY [facility] Last Admin: 11/02/18 08:12 Dose: 500 mg Clopidogrel Bisulfate (Plavix) 75 mg PO QWK [facility] Docusate Sodium (Colace) 100 mg PO BID [facility] Last Admin: 11/02/18 08:12 Dose: 100 mg Fenofibrate (Tricor) 145 mg PO DAILY [facility] Last Admin: 11/02/18 08:12 Dose: 145 mg Gabapentin (Neurontin) 300 mg PO BID [facility] Last Admin: 11/02/18 08:12 Dose: 300 mg Heparin Sodium (Porcine) (Heparin) 5,000 units SC Q8 [facility]; Protocol Last Admin: 11/02/18 08:10 Dose: 5,000 units Hydroxychloroquine Sulfate (Plaquenil) 200 mg PO DAILY [facility]; Protocol Last Admin: 11/02/18 08:12 Dose: 200 mg Ibuprofen (Motrin Tab) 400 mg PO QID PRN PRN Reason: Pain, moderate (4-7) Insulin Human Regular (Humulin R) 0 units SC ACHS [facility]; Protocol Last Admin: 11/02/18 06:33 Dose: Not Given Lidocaine (Lidoderm) 1 ea TD DAILY PRN PRN Reason: Pain, Mild (1-3) Last Admin: 10/31/18 16:15 Dose: 1 ea Methylprednisolone (Solu-Medrol) 30 mg IVP DAILY [facility] Last Admin: 11/02/18 08:11 Dose: 30 mg Montelukast Sodium (Singulair) 10 mg PO HS [facility] Last Admin: 11/01/18 21:25 Dose: 10 mg Pantoprazole Sodium (Protonix Ec Tab) 20 mg PO DAILY PRN PRN Reason: stomach pain Last Admin: 11/02/18 08:12 Dose: 20 mg Promethazine HCl/Dextromethorphan (Phenergan Dm Syrup) 10 ml PO HS [facility] Last Admin: 11/01/18 21:25 Dose: 10 ml Tamsulosin HCl (Flomax) 0.4 mg PO DAILY [facility] Last Admin: 11/02/18 08:13 Dose: 0.4 mg Assessment and Plan (1) Chronic respiratory failure with hypoxia and hypercapnia Status: Chronic (2) ILD (interstitial lung disease) Status: Chronic
[2018-11-02] MEDS: Lidocaine 5% Patch TD PRN (10:51)
[2018-11-02] MEDS: Promethazine DM 12.5 mg-30 mg/10 ml Syrup PO SCH (21:22)
[2018-11-03] MEDS: Albuterol-Ipratrop 3 mg / 0.5 (3 ml) UD INH SCH ×4 (01:01→19:09)
[2018-11-03] MEDS: Acetylcysteine 20% Inhal Soln (4ml) INH SCH ×4 (01:01→19:09)
[2018-11-03] MEDS: Insulin Regular 100 units/ml SC SCH ×4 (06:39→21:58)
[2018-11-03] MEDS: MethylPREDNISolone 40 mg Vial IVP SCH (09:04)
[2018-11-03] MEDS: Artificial Tears Opht Soln OU PRN (09:05)
[2018-11-03] MEDS: Lidocaine 5% Patch TD PRN (09:06)
[2018-11-03] MEDS: Pantoprazole 20 mg EC Tab PO PRN (09:06)
--- NOTE | 2018-11-03 14:23 | CP.PCM.PN ---
Subjective - Date & Time of Evaluation Date of Evaluation: 11/03/18 Time of Evaluation: 14:20 - Subjective Subjective: Appears more fatigued and somnolent. Has been using his BiPAP ventilator PRN. Breath sounds are very diminished bilaterally w/o audible wheezing. Reinforced need for increased time with NPPV on. Switch to PO prednisone planned for AM. Objective - Vital Signs/Intake and Output Vital Signs (last 24 hours): Temp Pulse Resp BP Pulse Ox 97.2 F L 79 18 104/66 96 11/03/18 07:54 11/03/18 07:54 11/03/18 07:54 11/03/18 07:54 11/03/18 07:54 - Medications Medications: Current Medications Acetaminophen (Tylenol 325mg Tab) 650 mg PO Q6 PRN PRN Reason: Headache Last Admin: 11/03/18 00:29 Dose: 650 mg Acetylcysteine (Acetylcysteine 20%) 2 ml INH RQ6 [facility] Last Admin: 11/03/18 13:41 Dose: 2 ml Albuterol/Ipratropium (Duoneb 3 Mg/0.5 Mg (3 Ml) Ud) 3 ml INH RQ6 [facility] Last Admin: 11/03/18 13:41 Dose: 3 ml Artificial Tears (Artificial Tears) 2 drop OU Q4 PRN PRN Reason: Dry eyes Last Admin: 11/03/18 09:05 Dose: 2 drop Atorvastatin Calcium (Lipitor) 20 mg PO HS [facility] Last Admin: 11/02/18 21:22 Dose: 20 mg Baclofen (Lioresal) 10 mg PO DAILY [facility] Last Admin: 11/03/18 09:07 Dose: 10 mg Benzonatate (Tessalon Perles) 200 mg PO Q8 PRN PRN Reason: Cough Last Admin: 11/02/18 01:20 Dose: 200 mg Bisoprolol Fumarate (Zebeta) 2.5 mg PO DAILY [facility] Last Admin: 11/03/18 09:07 Dose: 2.5 mg Calcium Carbonate (Oscal) 500 mg PO DAILY [facility] Last Admin: 11/03/18 09:08 Dose: 500 mg Clopidogrel Bisulfate (Plavix) 75 mg PO F [facility] Docusate Sodium (Colace) 100 mg PO BID [facility] Last Admin: 11/03/18 09:05 Dose: 100 mg Fenofibrate (Tricor) 145 mg PO DAILY [facility] Last Admin: 11/03/18 09:07 Dose: 145 mg Gabapentin (Neurontin) 300 mg PO BID [facility] Last Admin: 11/03/18 09:06 Dose: 300 mg Guaifenesin (Mucinex La) 600 mg PO Q12 [facility] Heparin Sodium (Porcine) (Heparin) 5,000 units SC Q8 [facility]; Protocol Last Admin: 11/03/18 09:07 Dose: 5,000 units Hydroxychloroquine Sulfate (Plaquenil) 200 mg PO DAILY [facility]; Protocol Ibuprofen (Motrin Tab) 400 mg PO QID PRN PRN Reason: Pain, moderate (4-7) Last Admin: 11/02/18 10:51 Dose: 400 mg Insulin Human Regular (Humulin R) 0 units SC ACHS [facility]; Protocol Last Admin: 11/03/18 11:30 Dose: Not Given Lidocaine (Lidoderm) 1 ea TD DAILY PRN PRN Reason: Pain, Mild (1-3) Last Admin: 11/03/18 09:06 Dose: 1 ea Methylprednisolone (Solu-Medrol) 30 mg IVP DAILY [facility] Stop: 11/03/18 23:59 Last Admin: 11/03/18 09:04 Dose: 30 mg Montelukast Sodium (Singulair) 10 mg PO HS [facility] Last Admin: 11/02/18 21:23 Dose: 10 mg Pantoprazole Sodium (Protonix Ec Tab) 20 mg PO DAILY PRN PRN Reason: stomach pain Last Admin: 11/03/18 09:06 Dose: 20 mg Prednisone (Prednisone Tab) 20 mg PO DAILY [facility] Promethazine HCl/Dextromethorphan (Phenergan Dm Syrup) 10 ml PO HS [facility] Last Admin: 11/02/18 21:22 Dose: 10 ml Tamsulosin HCl (Flomax) 0.4 mg PO DAILY [facility] Last Admin: 11/03/18 09:08 Dose: 0.4 mg Assessment and Plan (1) Chronic respiratory failure with hypoxia and hypercapnia Status: Chronic (2) ILD (interstitial lung disease) Status: Chronic
[2018-11-03] MEDS: guaiFENesin 600 mg ER Tab PO SCH (20:19)
[2018-11-03] MEDS: Promethazine DM 12.5 mg-30 mg/10 ml Syrup PO SCH (21:04)
[2018-11-04] MEDS: Acetylcysteine 20% Inhal Soln (4ml) INH SCH ×5 (01:32→19:08)
[2018-11-04] MEDS: Albuterol-Ipratrop 3 mg / 0.5 (3 ml) UD INH SCH ×5 (01:32→19:08)
[2018-11-04] MEDS: Insulin Regular 100 units/ml SC SCH ×4 (06:36→21:05)
[2018-11-04] MEDS: guaiFENesin 600 mg ER Tab PO SCH ×2 (08:24→21:06)
--- NOTE | 2018-11-04 12:18 | PN ---
DATE: 11/03/2018 SUBJECTIVE: The patient was seen on 11/03/2018. He was using the BiPAP due to respiratory distress. PHYSICAL EXAMINATION: VITAL SIGNS: Blood pressure was 90/56, temperature 97.2, respiratory rate 18, and pulse 79. HEENT: Pupils equal, reactive to light. Normal-appearing mucosa of the conjunctivae, oropharynx, and nasal membrane mucosa. NECK: Supple. No JVD. No carotid bruit. No lymph node. No thyromegaly. CHEST AND LUNGS: Bilateral symmetrical expansion. Good air exchange. Scattered rhonchi. CARDIOVASCULAR SYSTEM: PMI not localized. S1, S2. No additional sounds. ABDOMEN: Normoactive bowel sounds. No tenderness. No organomegaly. No masses. EXTREMITIES: No cyanosis, no clubbing, no edema. CENTRAL NERVOUS SYSTEM: Alert, awake, oriented x2, and moves all extremities equally. ASSESSMENT: Hypercapnic respiratory failure, severe chronic obstructive pulmonary disease, advanced rheumatoid arthritis with problem likely lung involvement, status post pneumonia. PLAN: Continue current medications, bronchodilators, and Mucomyst. Follow Pulmonary recommendations. Physical therapy and occupational therapy. Michaela Wood MD
[2018-11-04] MEDS: Promethazine DM 12.5 mg-30 mg/10 ml Syrup PO SCH (21:06)
[2018-11-05] MEDS: Acetylcysteine 20% Inhal Soln (4ml) INH SCH ×4 (02:52→19:12)
[2018-11-05] MEDS: Albuterol-Ipratrop 3 mg / 0.5 (3 ml) UD INH SCH ×4 (02:52→19:12)
[2018-11-05] MEDS: Insulin Regular 100 units/ml SC SCH ×4 (06:54→21:42)
[2018-11-05] MEDS: guaiFENesin 600 mg ER Tab PO SCH ×2 (08:21→21:39)
[2018-11-05] MEDS: Promethazine DM 12.5 mg-30 mg/10 ml Syrup PO SCH (21:39)
[2018-11-06] MEDS: Albuterol-Ipratrop 3 mg / 0.5 (3 ml) UD INH SCH ×5 (01:05→19:00)
[2018-11-06] MEDS: Acetylcysteine 20% Inhal Soln (4ml) INH SCH ×2 (01:05→08:15)
[2018-11-06] MEDS: Insulin Regular 100 units/ml SC SCH ×4 (07:30→22:40)
[2018-11-06] MEDS: guaiFENesin 600 mg ER Tab PO SCH ×2 (08:56→22:44)
--- NOTE | 2018-11-06 11:13 | CP.PCM.PN ---
Subjective - Date & Time of Evaluation Date of Evaluation: 11/06/18 Time of Evaluation: 11:13 - Subjective Subjective: Still complains of cough with mucoid sputum expectorated. Will discontinue acetylcysteine. Has been refusing placement of BiPAP msk at bedtime. Reinforced need for compliance with overnight NPPV. Will use once daily dose of promethazine with 5MG codeine at HS only. Objective - Vital Signs/Intake and Output Vital Signs (last 24 hours): Temp Pulse Resp BP Pulse Ox 98.5 F 61 20 94/58 L 97 11/05/18 19:30 11/05/18 19:30 11/05/18 19:30 11/05/18 19:30 11/05/18 19:30 - Medications Medications: Current Medications Acetaminophen (Tylenol 325mg Tab) 650 mg PO Q6 PRN PRN Reason: Headache Last Admin: 11/04/18 21:06 Dose: 650 mg Albuterol/Ipratropium (Duoneb 3 Mg/0.5 Mg (3 Ml) Ud) 3 ml INH RQID [facility] Artificial Tears (Artificial Tears) 2 drop OU Q4 PRN PRN Reason: Dry eyes Last Admin: 11/03/18 09:05 Dose: 2 drop Atorvastatin Calcium (Lipitor) 20 mg PO HS [facility] Last Admin: 11/05/18 21:39 Dose: 20 mg Baclofen (Lioresal) 10 mg PO DAILY [facility] Last Admin: 11/06/18 08:56 Dose: 10 mg Benzonatate (Tessalon Perles) 200 mg PO Q8 PRN PRN Reason: Cough Last Admin: 11/06/18 08:58 Dose: 200 mg Bisoprolol Fumarate (Zebeta) 2.5 mg PO DAILY [facility] Last Admin: 11/06/18 08:57 Dose: 2.5 mg Calcium Carbonate (Oscal) 500 mg PO DAILY [facility] Last Admin: 11/06/18 08:56 Dose: 500 mg Clopidogrel Bisulfate (Plavix) 75 mg PO MWF [facility] Last Admin: 11/06/18 08:57 Dose: 75 mg Docusate Sodium (Colace) 100 mg PO BID [facility] Last Admin: 11/06/18 08:55 Dose: 100 mg Fenofibrate (Tricor) 145 mg PO DAILY [facility] Last Admin: 11/06/18 08:58 Dose: 145 mg Gabapentin (Neurontin) 300 mg PO BID [facility] Last Admin: 11/06/18 08:56 Dose: 300 mg Guaifenesin (Mucinex La) 600 mg PO Q12 [facility] Last Admin: 11/06/18 08:56 Dose: 600 mg Heparin Sodium (Porcine) (Heparin) 5,000 units SC Q8 [facility]; Protocol Last Admin: 11/06/18 08:55 Dose: 5,000 units Hydroxychloroquine Sulfate (Plaquenil) 200 mg PO DAILY [facility]; Protocol Last Admin: 11/06/18 08:56 Dose: 200 mg Ibuprofen (Motrin Tab) 400 mg PO QID PRN PRN Reason: Pain, moderate (4-7) Last Admin: 11/05/18 10:45 Dose: 400 mg Insulin Human Regular (Humulin R) 0 units SC ACHS [facility]; Protocol Last Admin: 11/06/18 07:30 Dose: Not Given Lidocaine (Lidoderm) 1 ea TD DAILY PRN PRN Reason: Pain, Mild (1-3) Last Admin: 11/03/18 09:06 Dose: 1 ea Montelukast Sodium (Singulair) 10 mg PO HS [facility] Last Admin: 11/05/18 21:39 Dose: 10 mg Pantoprazole Sodium (Protonix Ec Tab) 20 mg PO DAILY PRN PRN Reason: stomach pain Last Admin: 11/03/18 09:06 Dose: 20 mg Prednisone (Prednisone Tab) 15 mg PO DAILY [facility] Promethazine HCl/Codeine (Phenergan/Codeine Oral Syrup) 5 ml PO HS [facility] Tamsulosin HCl (Flomax) 0.4 mg PO DAILY [facility] Last Admin: 11/06/18 08:55 Dose: 0.4 mg Assessment and Plan (1) Chronic respiratory failure with hypoxia and hypercapnia Status: Chronic (2) ILD (interstitial lung disease) Status: Chronic
[2018-11-06] MEDS: Promethazine/Cod 6.25mg-10mg/5ml Syr UD PO SCH (22:44)
[2018-11-07] MEDS: Insulin Regular 100 units/ml SC SCH ×4 (06:38→22:53)
[2018-11-07] MEDS: Albuterol-Ipratrop 3 mg / 0.5 (3 ml) UD INH SCH ×4 (07:52→20:14)
[2018-11-07] MEDS: guaiFENesin 600 mg ER Tab PO SCH ×2 (08:25→21:09)
--- NOTE | 2018-11-07 13:46 | CP.PCM.PN ---
Subjective - Date & Time of Evaluation Date of Evaluation: 11/07/18 Time of Evaluation: 14:00 - Subjective Subjective: Following for Dr. Wood Patient seen and examined bedside . All chart and clinical data reviewed. 73 y/o male with PMH RA, COPD admitted for worsening SOB, acute on chronic hypercapneic hypoxemic respiratory failure. at present in TCU for PT for deconditioning . Still states that does not feel well, with dyspnea at rest and with minimal ambulation on BIPAp at present Objective - Vital Signs/Intake and Output Vital Signs (last 24 hours): Temp Pulse Resp BP Pulse Ox 98.3 F 62 18 99/52 L 94 L 11/07/18 10:00 11/07/18 10:00 11/07/18 10:00 11/07/18 10:00 11/07/18 10:00 - Medications Medications: Current Medications Acetaminophen (Tylenol 325mg Tab) 650 mg PO Q6 PRN PRN Reason: Headache Last Admin: 11/04/18 21:06 Dose: 650 mg Albuterol/Ipratropium (Duoneb 3 Mg/0.5 Mg (3 Ml) Ud) 3 ml INH RQID [facility] Last Admin: 11/07/18 11:03 Dose: 3 ml Artificial Tears (Artificial Tears) 2 drop OU Q4 PRN PRN Reason: Dry eyes Last Admin: 11/03/18 09:05 Dose: 2 drop Atorvastatin Calcium (Lipitor) 20 mg PO HS [facility] Last Admin: 11/06/18 22:44 Dose: 20 mg Baclofen (Lioresal) 10 mg PO DAILY [facility] Last Admin: 11/07/18 08:25 Dose: 10 mg Benzonatate (Tessalon Perles) 200 mg PO Q8 PRN PRN Reason: Cough Last Admin: 11/06/18 08:58 Dose: 200 mg Bisoprolol Fumarate (Zebeta) 2.5 mg PO DAILY [facility] Last Admin: 11/07/18 08:25 Dose: 2.5 mg Calcium Carbonate (Oscal) 500 mg PO DAILY [facility] Last Admin: 11/07/18 08:25 Dose: 500 mg Clopidogrel Bisulfate (Plavix) 75 mg PO MWF [facility] Last Admin: 11/06/18 08:57 Dose: 75 mg Docusate Sodium (Colace) 100 mg PO BID [facility] Last Admin: 11/07/18 08:27 Dose: 100 mg Fenofibrate (Tricor) 145 mg PO DAILY [facility] Last Admin: 11/07/18 08:26 Dose: 145 mg Gabapentin (Neurontin) 300 mg PO BID [facility] Last Admin: 11/07/18 08:25 Dose: 300 mg Guaifenesin (Mucinex La) 600 mg PO Q12 [facility] Last Admin: 11/07/18 08:25 Dose: 600 mg Heparin Sodium (Porcine) (Heparin) 5,000 units SC Q8 [facility]; Protocol Last Admin: 11/07/18 08:25 Dose: 5,000 units Hydroxychloroquine Sulfate (Plaquenil) 200 mg PO DAILY [facility]; Protocol Last Admin: 11/07/18 08:26 Dose: 200 mg Ibuprofen (Motrin Tab) 400 mg PO QID PRN PRN Reason: Pain, moderate (4-7) Last Admin: 11/05/18 10:45 Dose: 400 mg Insulin Human Regular (Humulin R) 0 units SC ACHS [facility]; Protocol Last Admin: 11/07/18 11:32 Dose: Not Given Lidocaine (Lidoderm) 1 ea TD DAILY PRN PRN Reason: Pain, Mild (1-3) Last Admin: 11/03/18 09:06 Dose: 1 ea Montelukast Sodium (Singulair) 10 mg PO HS [facility] Last Admin: 11/06/18 22:44 Dose: 10 mg Pantoprazole Sodium (Protonix Ec Tab) 20 mg PO DAILY PRN PRN Reason: stomach pain Last Admin: 11/03/18 09:06 Dose: 20 mg Prednisone (Prednisone Tab) 15 mg PO DAILY [facility] Last Admin: 11/07/18 08:26 Dose: 15 mg Promethazine HCl/Codeine (Phenergan/Codeine Oral Syrup) 5 ml PO HS [facility] Last Admin: 11/06/18 22:44 Dose: 5 ml Tamsulosin HCl (Flomax) 0.4 mg PO DAILY [facility] Last Admin: 11/07/18 08:25 Dose: 0.4 mg - Constitutional Appears: Chronically Ill, Other (stated age, on BIPAP ) - Head Exam Head Exam: ATRAUMATIC - Eye Exam Eye Exam: EOMI, PERRL - ENT Exam ENT Exam: Mucous Membranes Dry - Neck Exam Neck Exam: Normal Inspection - Respiratory Exam Respiratory Exam: Prolonged Expiratory Phase. absent: Rhonchi, Wheezes - Cardiovascular Exam Cardiovascular Exam: REGULAR RHYTHM, +S1, +S2. absent: JVD - GI/Abdominal Exam GI & Abdominal Exam: Soft. absent: Distended, Guarding, Normal Bowel Sounds, Rebound - Rectal Exam Rectal Exam: Deferred - Extremities Exam Extremities Exam: Normal Capillary Refill, Normal Inspection. absent: Pedal Edema - Back Exam Back Exam: NORMAL INSPECTION - Neurological Exam Neurological Exam: Alert, Awake, CN II-XII Intact - Psychiatric Exam Psychiatric exam: Flat Affect - Skin Skin Exam: Dry, Warm Assessment and Plan - Assessment and Plan (Free Text) Assessment: 73 y/o male with PMH COPD , HTN , RA was inotially admitted for acute on chronic hypercapneic hypoxemic respiratory failure secondary to COPD . He underwent bronchoscopy with mucus plug removal . At present transferred to TCU for deconditioning and PT . With dyspnea at rest and minimal effort ,with coughing spells and mucoid sputum production. 1. Deconditioning continue PT 2. Chronic hypercapneic hypoxemic respiratory failure pulomnary on consult following continue BIPAp On prednisone , promethazine with codeine , Duonebs , Mucinex, tesalon pearls and singuilar 3. Rheumatoid arthritis on Hydroxchloroquine 4. Anemia and Thrombocytopenia stable, chronic 5.Hypertension controlled on bisoprolol 6.BPH on Flomax 7. DVT prophylaxis on Heparin
[2018-11-07] MEDS: Promethazine/Cod 6.25mg-10mg/5ml Syr UD PO SCH (21:09)
[2018-11-08] MEDS: Insulin Regular 100 units/ml SC SCH ×4 (06:43→22:33)
[2018-11-08] MEDS: Albuterol-Ipratrop 3 mg / 0.5 (3 ml) UD INH SCH ×4 (08:14→19:27)
[2018-11-08] MEDS: guaiFENesin 600 mg ER Tab PO SCH ×2 (08:16→22:36)
--- NOTE | 2018-11-08 09:19 | CP.PCM.PN ---
Subjective - Date & Time of Evaluation Date of Evaluation: 11/08/18 Time of Evaluation: 09:15 - Subjective Subjective: Tolerating current regimen. Looks somewhat more comfortable. Using BiPAP nitely as directed. Less overnight coughing reported. Sleep is improved on this regimen. Switched to PO prednisone. Will reduce again after tomorrow's morning dose. Needs continued physical therapy. He reports less ability to ambulate. Objective - Vital Signs/Intake and Output Vital Signs (last 24 hours): Temp Pulse Resp BP Pulse Ox 97.8 F 79 18 95/55 L 96 11/08/18 08:06 11/08/18 08:06 11/08/18 08:06 11/08/18 08:06 11/08/18 08:06 - Medications Medications: Current Medications Acetaminophen (Tylenol 325mg Tab) 650 mg PO Q6 PRN PRN Reason: Headache Last Admin: 11/07/18 18:10 Dose: 650 mg Albuterol/Ipratropium (Duoneb 3 Mg/0.5 Mg (3 Ml) Ud) 3 ml INH RQID [facility] Last Admin: 11/08/18 08:14 Dose: 3 ml Artificial Tears (Artificial Tears) 2 drop OU Q4 PRN PRN Reason: Dry eyes Last Admin: 11/03/18 09:05 Dose: 2 drop Atorvastatin Calcium (Lipitor) 20 mg PO HS [facility] Last Admin: 11/07/18 21:09 Dose: 20 mg Baclofen (Lioresal) 10 mg PO DAILY [facility] Last Admin: 11/08/18 08:16 Dose: 10 mg Benzonatate (Tessalon Perles) 200 mg PO Q8 PRN PRN Reason: Cough Last Admin: 11/06/18 08:58 Dose: 200 mg Bisoprolol Fumarate (Zebeta) 2.5 mg PO DAILY [facility] Last Admin: 11/08/18 08:17 Dose: 2.5 mg Calcium Carbonate (Oscal) 500 mg PO DAILY [facility] Last Admin: 11/08/18 08:16 Dose: 500 mg Clopidogrel Bisulfate (Plavix) 75 mg PO MWF [facility] Last Admin: 11/08/18 08:16 Dose: 75 mg Docusate Sodium (Colace) 100 mg PO BID [facility] Last Admin: 11/08/18 08:15 Dose: 100 mg Fenofibrate (Tricor) 145 mg PO DAILY [facility] Last Admin: 11/08/18 08:17 Dose: 145 mg Gabapentin (Neurontin) 300 mg PO BID [facility] Last Admin: 11/08/18 08:15 Dose: 300 mg Guaifenesin (Mucinex La) 600 mg PO Q12 [facility] Last Admin: 11/08/18 08:16 Dose: 600 mg Heparin Sodium (Porcine) (Heparin) 5,000 units SC Q8 [facility]; Protocol Last Admin: 11/08/18 08:14 Dose: 5,000 units Hydroxychloroquine Sulfate (Plaquenil) 200 mg PO DAILY [facility]; Protocol Last Admin: 11/08/18 08:17 Dose: 200 mg Ibuprofen (Motrin Tab) 400 mg PO QID PRN PRN Reason: Pain, moderate (4-7) Last Admin: 11/05/18 10:45 Dose: 400 mg Insulin Human Regular (Humulin R) 0 units SC ACHS [facility]; Protocol Last Admin: 11/08/18 06:43 Dose: 1 unit Lidocaine (Lidoderm) 1 ea TD DAILY PRN PRN Reason: Pain, Mild (1-3) Last Admin: 11/03/18 09:06 Dose: 1 ea Montelukast Sodium (Singulair) 10 mg PO HS [facility] Last Admin: 11/07/18 21:09 Dose: 10 mg Pantoprazole Sodium (Protonix Ec Tab) 20 mg PO DAILY PRN PRN Reason: stomach pain Last Admin: 11/03/18 09:06 Dose: 20 mg Prednisone (Prednisone Tab) 15 mg PO DAILY [facility] Last Admin: 11/08/18 08:15 Dose: 15 mg Promethazine HCl/Codeine (Phenergan/Codeine Oral Syrup) 5 ml PO HS [facility] Last Admin: 11/07/18 21:09 Dose: 5 ml Tamsulosin HCl (Flomax) 0.4 mg PO DAILY [facility] Last Admin: 11/08/18 08:16 Dose: 0.4 mg Assessment and Plan (1) Chronic respiratory failure with hypoxia and hypercapnia Status: Chronic (2) ILD (interstitial lung disease) Status: Chronic
[2018-11-08] MEDS: Promethazine/Cod 6.25mg-10mg/5ml Syr UD PO SCH (22:36)
--- NOTE | 2018-11-09 01:34 | PN ---
DATE: 11/08/2018 SUBJECTIVE: The patient is seen today, 11/08/2018. He still has exertional shortness of breath and patient is using BiPAP intermittently. OBJECTIVE: VITAL SIGNS: Blood pressure 108/66, temperature 98.3, respiratory rate 20, and pulse 69. HEENT: Pupils equal and reactive to light. Normal-appearing mucosa of the conjunctivae, oropharynx, and nasal membrane mucosa. NECK: Supple. No JVD. No carotid bruit. No lymph node. No thyromegaly. CHEST AND LUNGS: Bilateral symmetrical expansion. Good air exchange. No rales, no rhonchi. CARDIOVASCULAR SYSTEM: PMI not localized. S1, S2. No additional sounds. ABDOMEN: Normoactive bowel sounds. No tenderness. No organomegaly. No masses. EXTREMITIES: No cyanosis, no clubbing, no edema. CENTRAL NERVOUS SYSTEM: Alert, awake, oriented x2. No neurological deficit could be appreciated. ASSESSMENT: Hypercapnic respiratory failure, status post bilateral pneumonia; type 2 diabetes mellitus; advanced rheumatoid arthritis. PLAN: Continue current steroids as well as Plaquenil, physical therapy and occupational therapy; and if the patient is in need for further rehabilitation, can be discharged to subacute rehab. I discussed the patient's condition with his . Michaela Wood MD
[2018-11-09 06:38] LABS: HEMOGLOBIN 8.8 g/dL (12.0-18.0); MEAN CELL VOLUME 102.5 fl (80.0-94.0); MEAN CORPUSCULAR HEMOGLOBIN 32.1 pg (27.0-31.0); MEAN CORPUSCULAR HGB CONC 31.3 g/dL (33.0-37.0); RBC 2.75 Mil/uL (4.40-5.90); RED CELL DISTRIBUTION WIDTH 19.6 % (11.5-14.5); WHITE BLOOD COUNT 3.8 K/uL (4.8-10.8)
[2018-11-09 06:44] LABS: ALB/GLOB RATIO 1.1 (1.0-2.1); ALBUMIN 2.8 g/dL (3.5-5.0); ALT/SGPT 28 U/L (21-72); AST/SGOT 28 U/L (17-59); BLOOD UREA NITROGEN 23 mg/dl (9-20); CALCIUM 9.1 mg/dL (8.4-10.2); GFR NON-AFRICAN AMERICAN > 60
[2018-11-09] MEDS: Insulin Regular 100 units/ml SC SCH ×3 (07:49→16:55)
[2018-11-09] MEDS: Albuterol-Ipratrop 3 mg / 0.5 (3 ml) UD INH SCH ×3 (08:20→15:16)
[2018-11-09] MEDS: guaiFENesin 600 mg ER Tab PO SCH (09:20)
[2018-11-09] MEDS ORDERED: Promethazine/Cod 6.25mg-10mg/5ml Syr UD PO PRN (10:28)
--- NOTE | 2018-11-09 10:33 | CP.PCM.PN ---
Subjective - Date & Time of Evaluation Date of Evaluation: 11/09/18 Time of Evaluation: 10:29 - Subjective Subjective: Has done fairly well with current regimen. AM lab results noted with CO2 45. Has been compliant with overnight use of BiPAP. PT note from yesterday reviewed. Plan is for discharge to [facility] for continued DEMETRIO. Reinforced need for continued use of BiPAP on an every night basis and PRN during the daytime. Objective - Vital Signs/Intake and Output Vital Signs (last 24 hours): Temp Pulse Resp BP Pulse Ox 98.0 F 82 18 111/51 L 95 11/09/18 08:24 11/09/18 08:24 11/09/18 08:24 11/09/18 08:24 11/09/18 08:24 - Medications Medications: Current Medications Acetaminophen (Tylenol 325mg Tab) 650 mg PO Q6 PRN PRN Reason: Headache Last Admin: 11/07/18 18:10 Dose: 650 mg Albuterol/Ipratropium (Duoneb 3 Mg/0.5 Mg (3 Ml) Ud) 3 ml INH RQID [facility] Last Admin: 11/09/18 08:20 Dose: 3 ml Artificial Tears (Artificial Tears) 2 drop OU Q4 PRN PRN Reason: Dry eyes Last Admin: 11/03/18 09:05 Dose: 2 drop Atorvastatin Calcium (Lipitor) 20 mg PO HS [facility] Last Admin: 11/08/18 22:36 Dose: 20 mg Baclofen (Lioresal) 10 mg PO DAILY [facility] Last Admin: 11/09/18 09:20 Dose: 10 mg Benzonatate (Tessalon Perles) 200 mg PO Q8 PRN PRN Reason: Cough Last Admin: 11/06/18 08:58 Dose: 200 mg Bisoprolol Fumarate (Zebeta) 2.5 mg PO DAILY [facility] Last Admin: 11/09/18 09:22 Dose: 2.5 mg Calcium Carbonate (Oscal) 500 mg PO DAILY [facility] Last Admin: 11/09/18 09:20 Dose: 500 mg Clopidogrel Bisulfate (Plavix) 75 mg PO MWF [facility] Last Admin: 11/08/18 08:16 Dose: 75 mg Docusate Sodium (Colace) 100 mg PO BID [facility] Last Admin: 11/09/18 09:19 Dose: 100 mg Fenofibrate (Tricor) 145 mg PO DAILY [facility] Last Admin: 11/09/18 09:21 Dose: 145 mg Gabapentin (Neurontin) 300 mg PO BID [facility] Last Admin: 11/09/18 09:20 Dose: 300 mg Guaifenesin (Mucinex La) 600 mg PO Q12 [facility] Last Admin: 11/09/18 09:20 Dose: 600 mg Heparin Sodium (Porcine) (Heparin) 5,000 units SC Q8 [facility]; Protocol Last Admin: 11/09/18 09:19 Dose: 5,000 units Ibuprofen (Motrin Tab) 400 mg PO QID PRN PRN Reason: Pain, moderate (4-7) Last Admin: 11/05/18 10:45 Dose: 400 mg Insulin Human Regular (Humulin R) 0 units SC ACHS [facility]; Protocol Last Admin: 11/09/18 07:49 Dose: Not Given Lidocaine (Lidoderm) 1 ea TD DAILY PRN PRN Reason: Pain, Mild (1-3) Last Admin: 11/03/18 09:06 Dose: 1 ea Montelukast Sodium (Singulair) 10 mg PO HS [facility] Last Admin: 11/08/18 22:36 Dose: 10 mg Pantoprazole Sodium (Protonix Ec Tab) 20 mg PO DAILY PRN PRN Reason: stomach pain Last Admin: 11/03/18 09:06 Dose: 20 mg Prednisone (Prednisone Tab) 15 mg PO DAILY [facility] Last Admin: 11/09/18 09:20 Dose: 15 mg Promethazine HCl/Codeine (Phenergan/Codeine Oral Syrup) 5 ml PO HS PRN PRN Reason: Cough Tamsulosin HCl (Flomax) 0.4 mg PO DAILY [facility] Last Admin: 11/09/18 09:19 Dose: 0.4 mg - Labs Labs: 11/09/18 05:45 11/09/18 05:45 Assessment and Plan (1) Chronic respiratory failure with hypoxia and hypercapnia Status: Chronic (2) ILD (interstitial lung disease) Status: Chronic
[2018-11-09 15:35] VITALS: BP 94/61; PULSE 71; RESP 20; TEMP 98.6; O2SAT 100
== END 2018-11-09 18:20 | DRG 189 ==
LOC: H.TCU 17:55
PROVIDERS: ADMIT Internal Medicine; ATTEND Internal Medicine
PROC: 3E0F73Z Introduction of Anti-inflammatory into Respiratory Tract, Via Natural or Artificial Opening (ICD-10-PCS; principal; 2018-10-30)
PROC: 5A09457 Assistance with Respiratory Ventilation, 24-96 Consecutive Hours, Continuous Positive Airway Pressure (ICD-10-PCS; 2018-10-30)
PROC: F07Z9FZ Gait Training/Functional Ambulation Treatment using Assistive, Adaptive, Supportive or Protective Equipment (ICD-10-PCS; 2018-10-30)
PROC: F08Z4FZ Home Management Treatment using Assistive, Adaptive, Supportive or Protective Equipment (ICD-10-PCS; 2018-10-30)
PROC: 3E0F7GC Introduction of Other Therapeutic Substance into Respiratory Tract, Via Natural or Artificial Opening (ICD-10-PCS; 2018-10-30)
PROC: F07M6FZ Therapeutic Exercise Treatment of Musculoskeletal System - Whole Body using Assistive, Adaptive, Supportive or Protective Equipment (ICD-10-PCS; 2018-11-01)
DX: J96.11 Chronic respiratory failure with hypoxia (principal); J96.12 Chronic respiratory failure with hypercapnia; J84.10 Pulmonary fibrosis, unspecified; J44.9 Chronic obstructive pulmonary disease, unspecified; F03.90 Unspecified dementia, unspecified severity, without behavioral disturbance, psychotic disturbance, mood disturbance, and anxiety; D69.6 Thrombocytopenia, unspecified; D64.9 Anemia, unspecified; E11.9 Type 2 diabetes mellitus without complications; I25.10 Atherosclerotic heart disease of native coronary artery without angina pectoris; I10 Essential (primary) hypertension; E78.00 Pure hypercholesterolemia, unspecified; M06.9 Rheumatoid arthritis, unspecified; N40.0 Benign prostatic hyperplasia without lower urinary tract symptoms; Z87.01 Personal history of pneumonia (recurrent); Z99.81 Dependence on supplemental oxygen; Z95.1 Presence of aortocoronary bypass graft; Z95.5 Presence of coronary angioplasty implant and graft; Z87.891 Personal history of nicotine dependence; Z88.0 Allergy status to penicillin

== ENCOUNTER 2018-11-15 13:49 | Inpatient (IN) | payer MEDICARE, MEDICAID ==
[2018-11-15 13:49] VITALS: BMI 23.3
[2018-11-15] MEDS ORDERED: Albuterol-Ipratrop 3 mg / 0.5 (3 ml) UD INH STA ×2 (14:45→16:32)
[2018-11-15] MEDS ORDERED: Albuterol-Ipratrop 3 mg / 0.5 (3 ml) UD ONE ×2 (14:52→17:15)
[2018-11-15 14:58] LABS: BASO % 0.5 % (0.0-2.0); HEMOGLOBIN 9.9 g/dL (12.0-18.0); LYMPH # 0.8 K/uL (1.0-4.3); LYMPH % 25.6 % (20.0-40.0); MEAN CELL VOLUME 107.1 fl (80.0-94.0); MEAN CORPUSCULAR HEMOGLOBIN 32.1 pg (27.0-31.0); MEAN PLATELET VOLUME 9.6 fl (7.2-11.7); MONO # 0.2 K/uL (0.0-0.8); MONO % 7.1 % (0.0-10.0); NEUT # 2.2 K/uL (1.8-7.0); NEUT % 66.8 % (50.0-75.0); NRBC % 0.2 % (0.0-0.0); RBC 3.1 Mil/uL (4.40-5.90); RED CELL DISTRIBUTION WIDTH 20.5 % (11.5-14.5); WHITE BLOOD COUNT 3.3 K/uL (4.8-10.8)
[2018-11-15 15:03] LABS: ABG ALLEN TEST YES; ARTERIAL BLOOD GAS HCO3 39.7 mmol/L (21-28); ARTERIAL BLOOD GAS O2 SAT 100.2 % (95-98); ARTERIAL BLOOD GAS PCO2 95 mm/Hg (35-45); ARTERIAL BLOOD GAS PH 7.33 (7.35-7.45); ARTERIAL BLOOD GAS PO2 180 mm/Hg (80-100)
[2018-11-15 15:08] LABS: ALB/GLOB RATIO 1.2 (1.0-2.1); ALBUMIN 3.3 g/dL (3.5-5.0); ALT/SGPT 33 U/L (21-72); AST/SGOT 33 U/L (17-59); BLOOD UREA NITROGEN 27 mg/dl (9-20); CALCIUM 9.4 mg/dL (8.4-10.2); GFR NON-AFRICAN AMERICAN > 60
[2018-11-15 15:12] LABS: INR 0.9; PROTHROMBIN TIME 10.4 Seconds (9.8-13.1)
[2018-11-15 15:14] LABS: PARTIAL THROMBOPLASTIN TIME 35.1 Seconds (25.6-37.1)
[2018-11-15 15:18] LABS: B-TYPE NATRIURETIC PEPTIDE 1860 pg/ml (0-900)
--- NOTE | 2018-11-15 15:22 | ED PDOC ---
HPI: SOB/CHF/COPD Time Seen by Provider: 11/15/18 14:11 Chief Complaint (Nursing): Shortness Of Breath Chief Complaint (Provider): SOB History/Exam Limitations: clinical condition Onset/Duration Of Symptoms: Gradual (4-5 days) Current Symptoms Are (Timing): Still Present Exacerbating Factor(s): Coughing Current Respiratory Medications: See Home Med List Severity: Mild Additional Complaint(s): 73yo male c/o SOB and cough, ongoing 4-5 days. Poor historian with intermittent confusion. Denies fever. Sent from SNF for respiratory distress. Prior notes reviewed revealing admission last month for COPD exacerbation. Past Medical History Reviewed: Historical Data, Nursing Documentation, Vital Signs Vital Signs: Last Vital Signs Temp 98.4 F 11/15/18 13:54 Pulse 115 H 11/15/18 15:04 Resp 25 H 11/15/18 15:04 BP 115/57 L 11/15/18 15:04 Pulse Ox 94 L 11/15/18 15:04 - Medical History PMH: Alzheimer's Disease, Arthritis (BACK), Asthma, Back Problems, Bronchitis, CAD, COPD, Dementia, Diabetes, Fractures (Hip), HTN, Hypercholesterolemia, Hyperlipidemia, Pneumonia, Rheumatoid Arthritis, Sleep Apnea Denies: CHF, Hepatitis, HIV, Hypothyroidism, Chronic Kidney Disease, Seizures, Sexually Transmitted Disease - Surgical History Surgical History: Back Surgery (T-spine), CABG (1999), Coronary Stent - Family History Family History: States: Unknown Family Hx - Immunization History Hx Tetanus Toxoid Vaccination: No Hx Influenza Vaccination: No Hx Pneumococcal Vaccination: Yes - Home Medications Home Medications: Ambulatory Orders Medication Instructions Recorded Atorvastatin [Lipitor] 20 mg PO HS 11/29/16 Montelukast [Singulair] 10 mg PO HS 11/29/16 Docusate [Colace] 100 mg PO Q12 #0 02/03/18 Hydroxychloroquine Sulfate 200 mg PO DAILY 02/03/18 [Plaquenil] Tamsulosin [Flomax] 0.4 mg PO DAILY 02/03/18 Fenofibrate Nanocrystallized 145 mg PO DAILY 09/05/18 [Tricor] Bisoprolol Fumarate 2.5 mg PO DAILY 10/10/18 Baclofen [Lioresal] 10 mg PO DAILY 10/14/18 Gabapentin [Neurontin] 300 mg PO Q12 10/14/18 Heparin 5,000 units SC Q8 vial 10/14/18 Lidocaine 5% [Lidoderm] 1 ea TD DAILY PRN 10/14/18 guaiFENesin [Mucinex LA] 600 mg PO Q12 tab 10/30/18 Clopidogrel [Plavix] 75 mg PO MWF tab 11/09/18 Polyethylene Glycol/Polyvinyl 2 drop OU Q4 PRN bottle 11/09/18 [Artificial Tears] Promethazine/Codeine 5 ml PO HS PRN udc 11/09/18 [Phenergan/Codeine Oral Syrup] predniSONE [predniSONE Tab] 15 mg PO DAILY tab 11/09/18 Acetaminophen [Tylenol 325mg tab] 650 mg PO Q4 PRN 11/15/18 Acetaminophen [Tylenol 325mg tab] 650 mg PO Q6 PRN 11/15/18 Albuterol/Ipratropium [Duoneb 3 3 ml INH Q6 11/15/18 mg/0.5 mg (3 ml) UD] Calcium Carbonate/Vitamin D3 1 tab PO DAILY 11/15/18 [Oysco 500-Vit D3 200 Tablet] Epoetin Melquiades [Epogen] 10,000 unit SC MWF 11/15/18 Famotidine [Pepcid] 20 mg PO BID 11/15/18 Furosemide [Lasix] 20 mg PO DAILY 11/15/18 Ibuprofen [Motrin Tab] 400 mg PO Q6 PRN 11/15/18 Insulin Human Regular [HumuLIN R] 2 - 6 units SC BID 11/15/18 Mag Hydrox/Aluminum Hyd/Simeth 30 ml PO Q4 PRN 11/15/18 [Maalox Advanced Suspension] Magnesium Hydroxide [Milk Of 30 ml PO DAILY PRN 11/15/18 Magnesia] - Allergies Allergies/Adverse Reactions: Allergies Allergy/AdvReac Type Severity Reaction Status Date / Time Penicillins Allergy Unknown RASH Verified 10/30/18 15:52 Review of Systems Review Of Systems: ROS cannot be obtained secondary to pt's inabilty to answer questions. (unreliable) Constitutional: Negative for: Fever Respiratory: Positive for: Cough, Shortness of Breath, Wheezing Physical Exam - Reviewed Nursing Documentation Reviewed: Yes Vital Signs Reviewed: Yes - Physical Exam Appears: Positive for: Non-toxic Head Exam: Positive for: ATRAUMATIC, NORMAL INSPECTION, NORMOCEPHALIC Skin: Positive for: Normal Color, Warm, DRY Eye Exam: Positive for: EOMI ENT: Positive for: Normal ENT Inspection Neck: Positive for: Normal, Painless ROM Cardiovascular/Chest: Positive for: Regular Rate, Rhythm Respiratory: Positive for: Decreased Breath Sounds, Wheezing, Respiratory Distress Pulses-Radial (L): 2+ Pulses-Radial (R): 2+ Gastrointestinal/Abdominal: Positive for: Soft. Negative for: Tenderness Back: Positive for: Normal Inspection Extremity: Positive for: Normal ROM, Other (anasarca) Neurologic/Psych: Positive for: Alert, Oriented. Negative for: Motor/Sensory Deficits - Laboratory Results Result Diagrams: 11/15/18 14:45 11/15/18 14:45 Lab Results: pCO2 95 mm/Hg (35-45) H* 11/15/18 14:56 pO2 180 mm/Hg (80-100) H 11/15/18 14:56 HCO3 39.7 mmol/L (21-28) H 11/15/18 14:56 ABG pH 7.33 (7.35-7.45) L 11/15/18 14:56 ABG Total CO2 53.0 mmol/L (22-28) H 11/15/18 14:56 ABG O2 Saturation 100.2 % (95-98) H 11/15/18 14:56 ABG Base Excess 18.9 mmol/L (-2.0-3.0) H 11/15/18 14:56 Isacc Test Yes 11/15/18 14:56 ABG Potassium 4.2 mmol/L (3.6-5.2) 11/15/18 14:56 A-a O2 Difference 414.0 mm/Hg 11/15/18 14:56 Sodium 140.0 mmol/L (132-148) 11/15/18 14:56 Chloride 100.0 mmol/L (98-107) 11/15/18 14:56 Glucose 120 mg/dL (75-110) H 11/15/18 14:56 Lactate 0.9 mmol/L (0.7-2.1) 11/15/18 14:56 Vent Mode Nrm 11/15/18 14:56 FiO2 100.0 % 11/15/18 14:56 Crit Value Called To Dr burr 11/15/18 14:56 Crit Value Called By 60Ebony 11/15/18 14:56 Crit Value Read Back Y 11/15/18 14:56 Blood Gas Notified Time 1503 11/15/18 14:56 PT 10.4 Seconds (9.8-13.1) 11/15/18 14:45 INR 0.9 11/15/18 14:45 APTT 35.1 Seconds (25.6-37.1) 11/15/18 14:45 Troponin I 0.0220 ng/mL (0.00-0.120) 11/15/18 14:45 NT-Pro-B Natriuret Pep 1860 pg/ml (0-900) H 11/15/18 14:45 Total Bilirubin 0.7 mg/dl (0.2-1.3) 11/15/18 14:45 AST 33 U/L (17-59) 11/15/18 14:45 ALT 33 U/L (21-72) 11/15/18 14:45 Alkaline Phosphatase 52 U/L (38-126) 11/15/18 14:45 Total Protein 6.2 G/DL (6.3-8.2) L 11/15/18 14:45 Albumin 3.3 g/dL (3.5-5.0) L 11/15/18 14:45 Globulin 2.9 gm/dL (2.2-3.9) 11/15/18 14:45 Albumin/Globulin Ratio 1.2 (1.0-2.1) 11/15/18 14:45 - ECG O2 Sat by Pulse Oximetry: 94 Medical Decision Making Medical Decision Making: workup for mild resp distress initiated w EKG, labs, CXR, duoneb ABG reveals hypercapnea BIPAP ordered d/w Dr Wood, familiar w patient, full code, admit tele repeat ABG 2 hours CXR chronic appearing R pleural effusion similar to prior film from 10/30 labs mild elev BNP, mild pancytopenia, trop neg Dr Ashford to initiate Abx, cultures prior obtained, consult ICU given repeat ABG plateauing hypercarbia despite BIPAP. Disposition - Clinical Impression Clinical Impression: Acute respiratory failure with hypoxia and hypercarbia - Patient ED Disposition Is Patient to be Admitted: Yes Counseled Patient/Family Regarding: Studies Performed, Diagnosis - Disposition Disposition Time: 15:05
--- NOTE | 2018-11-15 16:15 | RAD ---
Date of service: 11/15/2018 HISTORY: SOB COMPARISON: 10/30/2018. FINDINGS: LUNGS: Improved aeration right lung. Stable atelectasis left lower lobe. PLEURA: Substantial decrease in right pleural effusion. CARDIOVASCULAR: No atherosclerotic calcification present Persistent cardiomegaly. OSSEOUS STRUCTURES: No significant abnormalities. Stable orthopedic hardware/Ocampo rods. VISUALIZED UPPER ABDOMEN: Normal. OTHER FINDINGS: None. IMPRESSION: Decrease in right pleural effusion. Commensurate increased aeration right lower lobe.
[2018-11-15 17:08] LABS: ABG ALLEN TEST YES; ARTERIAL BLOOD GAS HEMOGLOBIN 9.9 g/dL (11.7-17.4); ARTERIAL BLOOD GAS O2 CAPACITY 13.3 mL/dL (16-24); ARTERIAL BLOOD GAS O2 CONTENT 13.4 ML/dL (15-23); ARTERIAL BLOOD GAS O2 SAT 100.4 % (95-98); ARTERIAL BLOOD GAS PCO2 98 mm/Hg (35-45); ARTERIAL BLOOD GAS PH 7.33 (7.35-7.45); ARTERIAL BLOOD GAS PO2 86 mm/Hg (80-100); ARTERIAL BLOOD GAS TCO2 54.7 mmol/L (22-28)
[2018-11-15] MEDS ORDERED: Azithromycin 500 MG in Sodium Chloride 0.9% 250 ML IVPB STA (17:39)
[2018-11-15] MEDS ORDERED: Azithromycin 500 MG IV IVPB ONE (17:49)
--- NOTE | 2018-11-15 18:35 | CARD ---
APPROVED REPORT Date of service: 11/15/2018 EKG Measurement Heart [id number] <Conclusion> Sinus tachycardia with premature atrial complexes Indeterminate axis Right bundle branch block Possible Inferior infarct, age undetermined Abnormal ECG
[2018-11-15 19:02] LABS: SQUAMOUS EPITHIAL < 1 /hpf (0-5); URINE BACTERIA FEW (<OCC); URINE BILIRUBIN NEGATIVE (NEGATIVE); URINE BLOOD NEGATIVE (NEGATIVE); URINE CLARITY SLIGHTY-CLOUDY (Clear); URINE COLOR YELLOW (YELLOW); URINE GLUCOSE (UA) NEG (NEGATIVE); URINE LEUKOCYTE ESTERASE NEG Leu/uL (Negative); URINE PROTEIN NEGATIVE (NEGATIVE); URINE UROBILINOGEN 0.2-1.0 mg/dL (0.2-1.0)
--- NOTE | 2018-11-15 19:11 | CP.CCUPN ---
CCU Subjective - Physician Review Subjective (Free Text): Discussed with ER MD: 73M transferred from [place], with h/o COPD admitted for acute hypercarbic resp failure, on BiPAP and upgraded to ICU for possible need for MV support. Presently on BIPAP support, initially placed on 08/11 at 40% and backup RR 16, generating TV approx. 300ml. Initial ABGs showed PCO2 level of 95, PO2 180 with mild resp acidosis. BiPAP settings changed to 16/10 and now generating TVs above 500ml with each breath. He is awake, and alert, conversant in heavy accented Chinese, but does not appear distressed. No family available and unable to obtain any further history of the present illness. He is afebrile, SBP in 110s, HR 101, RR 19, SPO2 99% on 40% oxygen via BiPAP. ROS: No other pertinent negs or positives on system review, PMSFH: All other Nursing and physician documentation reviewed to date; no new pertinent info noted relevant to current medical problems. Allergies: Penicillin Home meds: Duoneb, Montelukast Lipitor, Lioreseal, Bisoprolol, Calcium supplement, Colace, Epogen, Pepcid, Fenofibrate, Lasix, Gabapentin, Plaquenil, Motrin, RISS Humulin, Lidocaine 5% patch, Flomax, Plavix, Prometh/Codeine, heparin. EXAM- HEENT: no icterus, no gaze preference NECK: No JVD visible, supple, carotids equal upstroke bilat/no bruit CHEST: decreased BS at the bases, especially R base; no wheezes audible bilaterally. Large well healed scar across left anterior chest and midline. Another T spine scar over the mid-upper back. HEART: regular, distant, S1S2, no rubs or murmurs noted ABD: soft and obese, nontender, no guarding, no organomegaly, BS hypoactive. EXT: no leg edema, no calf tenderness or palpable cords, distal pulses intact and symmetrical. Bilateral arthritic hand deformities. NEURO: no gross focal deficits. SKIN: no rashes, warm and dry LABS: WBC= 3.3 HGB= 9.9 PLTs= 95K Coags: WNL ABG #1 at approx. 3PM: 7.33/95/180 on 100% oxygen ABG #2 at 442PM: 7.33/99/86 on 40% O2 via BiPAP Na= 134 K= 4.2 CL= 89 HCO3= 43 BUN/Cr= 27/0.7 BS= 112 CXR: (my interp)- R effusion versus R basilar infiltrate / lobar atelectasis; plate-like atelectasis Left base. EKG: sinus 112/min, RBBB, old IWMI IMPRESSION / MAJOR PROBLEMS NOW: 1. Acute on chronic Hypercarbic resp Failure 2 Restrictive Lung Disease / Atelectasis and Mucous plugging; and COPD Exacerbation. 2. R/o R basilar pneumonia 3. Steroid Dependent Rheumatoid Arthritis 4. Thrombocytopenia, with no evident active bleeding 5. h/o Thoracic Spinal fusion surgery PLAN: 1. As he remains awake and responsive on BiPAP support and generating improved TVs, would repeat ABG. MV support reserved if hypercarbia worsens or coincident with any deterioration in mental status. 2. Would give more frequent Duonebs and start IV steroids. Empiric Abx coverage: Levaquin / vancomycin for now; or get ID eval. 3. Repeat CT Chest, last study reviewed from 10/30/18. 4. Pulm eval for possible FOB / BAL, if atelectasis non-resolved. 5. Hold Lasix, not in clinical CHF and diuresis may exacerbate more mucous plugging. 6. Check for any Advance Directives, presently full Code support.
--- NOTE | 2018-11-15 19:29 | ED PDOC ---
- Laboratory Results Result Diagrams: 11/15/18 14:45 11/15/18 14:45 Lab Results: pCO2 98 mm/Hg (35-45) H* 11/15/18 16:42 pO2 86 mm/Hg (80-100) 11/15/18 16:42 HCO3 42.0 mmol/L (21-28) H* 11/15/18 16:42 ABG pH 7.33 (7.35-7.45) L 11/15/18 16:42 ABG Total CO2 54.7 mmol/L (22-28) H 11/15/18 16:42 ABG O2 Saturation 100.4 % (95-98) H 11/15/18 16:42 ABG O2 Content 13.4 ML/dL (15-23) L 11/15/18 16:42 ABG Base Excess 21.9 mmol/L (-2.0-3.0) H 11/15/18 16:42 ABG Hemoglobin 9.9 g/dL (11.7-17.4) L 11/15/18 16:42 ABG Carboxyhemoglobin 3.2 % (0.5-1.5) H 11/15/18 16:42 POC ABG HHb (Measured) -0.4 % (0.0-5.0) L 11/15/18 16:42 ABG Methemoglobin 2.0 % (0.0-3.0) 11/15/18 16:42 ABG O2 Capacity 13.3 mL/dL (16-24) L 11/15/18 16:42 Isacc Test Yes 11/15/18 16:42 ABG Potassium 4.2 mmol/L (3.6-5.2) 11/15/18 14:56 A-a O2 Difference 77.0 mm/Hg 11/15/18 16:42 Hgb O2 Saturation 95.2 % (95.0-98.0) 11/15/18 16:42 Sodium 140.0 mmol/L (132-148) 11/15/18 14:56 Chloride 100.0 mmol/L (98-107) 11/15/18 14:56 Glucose 120 mg/dL (75-110) H 11/15/18 14:56 Lactate 0.9 mmol/L (0.7-2.1) 11/15/18 14:56 Vent Mode Bipap 11/15/18 16:42 Mechanical Rate 16 11/15/18 16:42 FiO2 40.0 % 11/15/18 16:42 Inspiratory BiPAP 10 11/15/18 16:42 Expiratory BiPAP 5 11/15/18 16:42 Crit Value Called To ashlie Hardy do 11/15/18 16:42 Crit Value Called By Vidal cruz 11/15/18 16:42 Crit Value Read Back Y 11/15/18 16:42 Blood Gas Notified Time 1708 11/15/18 16:42 PT 10.4 Seconds (9.8-13.1) 11/15/18 14:45 INR 0.9 11/15/18 14:45 APTT 35.1 Seconds (25.6-37.1) 11/15/18 14:45 Troponin I 0.0220 ng/mL (0.00-0.120) 11/15/18 14:45 NT-Pro-B Natriuret Pep 1860 pg/ml (0-900) H 11/15/18 14:45 Total Bilirubin 0.7 mg/dl (0.2-1.3) 11/15/18 14:45 AST 33 U/L (17-59) 11/15/18 14:45 ALT 33 U/L (21-72) 11/15/18 14:45 Alkaline Phosphatase 52 U/L (38-126) 11/15/18 14:45 Total Protein 6.2 G/DL (6.3-8.2) L 11/15/18 14:45 Albumin 3.3 g/dL (3.5-5.0) L 11/15/18 14:45 Globulin 2.9 gm/dL (2.2-3.9) 11/15/18 14:45 Albumin/Globulin Ratio 1.2 (1.0-2.1) 11/15/18 14:45 Urine Color Yellow (YELLOW) 11/15/18 18:28 Urine Clarity Slighty-cloudy (Clear) 11/15/18 18: Urine pH 5.0 (5.0-8.0) 11/15/18 18:28 Ur Specific Catron 1.015 (1.003-1.030) 11/15/18 18:28 Urine Protein Negative mg/dL (NEGATIVE) 11/15/18 18:28 Urine Glucose (UA) Neg mg/dL (NEGATIVE) 11/15/18 18:28 Urine Ketones Negative mg/dL (NEGATIVE) 11/15/18 18:28 Urine Blood Negative (NEGATIVE) 11/15/18 18:28 Urine Nitrate Negative (NEGATIVE) 11/15/18 18:28 Urine Bilirubin Negative (NEGATIVE) 11/15/18 18:28 Urine Urobilinogen 0.2-1.0 mg/dL (0.2-1.0) 11/15/18 18:28 Ur Leukocyte Esterase Neg Ron/uL (Negative) 11/15/18 18:28 Urine RBC (Auto) 2 /hpf (0-3) 11/15/18 18:28 Urine Microscopic WBC 1 /hpf (0-5) 11/15/18 18:28 Ur Squamous Epith Cells < 1 /hpf (0-5) 11/15/18 18:28 Urine Bacteria Few (<OCC) H 11/15/18 18:28 Hyaline Casts 3-5 /hpf (0-2) H 11/15/18 18:28 - ECG O2 Sat by Pulse Oximetry: 98 - Critical Care Total Time (In Min): 15 Medical Decision Making Medical Decision Making: Pt initially worked up and admitted for COPD exacerbation. On repeat ABG, the CO2 had increased. BiPAP settings were changed to increase IPAP/EPAP. This increased the tidal volume. Pt has remained alert and comfortable on BiPAP. Intensive Care consult was placed and patient's admission status has been changed to ICU. Disposition - Clinical Impression Clinical Impression: Acute respiratory failure with hypoxia and hypercarbia, COPD (chronic obstructive pulmonary disease) - POA Present On Arrival: None - Disposition Disposition: Admitted as In-Patient Disposition Time: 19:29 Condition: CRITICAL
[2018-11-15] MEDS ORDERED: Enoxaparin 40 mg Syringe SC SCH (21:32)
[2018-11-15] MEDS ORDERED: methylPREDNISolone 60 MG in Sodium Chloride 0.9% 50 ML IVPB SCH (22:00)
[2018-11-15] MEDS: levoFLOXacin 500 mg in D5W 500 MG/100 ML BAG IVPB SCH (22:10)
[2018-11-15] MEDS ORDERED: MethylPREDNISolone 40 mg Vial IV SCH (22:15)
[2018-11-16] MEDS: Albuterol-Ipratrop 3 mg / 0.5 (3 ml) UD INH SCH ×7 (00:22→23:44)
[2018-11-16] MEDS: guaiFENesin DM 100 mg-10 mg/5 ml UD PO PRN ×2 (01:05→18:16)
[2018-11-16 05:49] LABS: HEMOGLOBIN 8.8 g/dL (12.0-18.0); MEAN CELL VOLUME 102.9 fl (80.0-94.0); MEAN CORPUSCULAR HEMOGLOBIN 32.7 pg (27.0-31.0); MEAN CORPUSCULAR HGB CONC 31.8 g/dL (33.0-37.0); RBC 2.68 Mil/uL (4.40-5.90); RED CELL DISTRIBUTION WIDTH 19.3 % (11.5-14.5); WHITE BLOOD COUNT 2.4 K/uL (4.8-10.8)
[2018-11-16 06:32] LABS: BLOOD UREA NITROGEN 32 mg/dl (9-20); GFR NON-AFRICAN AMERICAN > 60
[2018-11-16 06:53] LABS: CALCIUM 9.3 mg/dL (8.4-10.2)
[2018-11-16] MEDS ORDERED: Influenza Vaccine 60 MCG/0.5 ML SYR (3 yr & up) IM ONE (07:58)
[2018-11-16] MEDS: levoFLOXacin 500 mg in D5W 500 MG/100 ML BAG IVPB SCH (08:49)
[2018-11-16] MEDS ORDERED: levoFLOXacin 500 mg in D5W 500 MG/100 ML BAG IVPB SCH (09:00)
--- NOTE | 2018-11-16 09:00 | RAD ---
Date of service: 11/16/2018 HISTORY: f/u Atelectasis, r/o PNA COMPARISON: 11/15/2018 FINDINGS: LUNGS: Opacity obscuring slightly more than the inferior right amelia thorax is slightly increased. Less pocket of aerated lung the right upper lobe now present. Left basal discoid atelectasis and/or scarring here concomitant bronchiectasis suggested. Concomitant right basal bronchiectasis along with right pleural effusion atelectasis and infiltrate is also possible. PLEURA: Right pleural effusion with compressive atelectasis and right pleural thickening and/or other right pleural parenchymal pathology has been noted previously on CT there are right lateral rib fractures which may be subacute-chronic. Some chronic right rib fractures are also suggested. Mixed timing in pathology possible. Correlate clinically CARDIOVASCULAR: There is presence of aortic atherosclerotic calcification on x-ray. Cardiac size probably mildly enlarged-however limited assessment given the silhouetting of inferior right hemithoracic pathology. Minimal pulmonary venous congestion possible. No significant appearing pulmonary venous congestion suspect OSSEOUS STRUCTURES: Ocampo rods similar in grossly intact project over mid to upper thoracic spine. As above multiple right rib fractures perhaps in varying stages subacute and/or chronic are noted. The right rib fractures border the right lateral pleural parenchymal homogeneous opacity present in the right hemithorax. VISUALIZED UPPER ABDOMEN: Normal. OTHER FINDINGS: None. IMPRESSION: Increasing/worsening right inferior hemithoracic opacification-mixed pathologies here inferred as detailed above. Only a small pocket of aerated lung now present. Left lung appearance similar. The left lung pathology seen. Other findings as above.
[2018-11-16] MEDS ORDERED: Oxycodone/Acetaminophen 5/325 mg Tab PO ONE (11:39)
--- NOTE | 2018-11-16 11:53 | CP.CCUPN ---
CCU Subjective - Physician Review Subjective (Free Text): Resisted staying on BiPAP support overnight, yet he looks comfortable and conversant without any distress nor dyspnea. Responses are appropriate and he is oriented x 3. Afebrile, SBp 100-110's, HR 80-100 sinus with PACs. RR 19 on 100% mask with 100% oxygen. RTs and Nurses report difficulty overnight in obtaining ABGs. ROS: No other pertinent negs or positives on 10+ system review. PMSFH: All other Nursing and physician documentation reviewed to date; no new pertinent info noted relevant to current medical problems. EXAM- HEENT: no icterus, no gaze preference NECK: No JVD visible, supple, carotids equal upstroke bilat/no bruit CHEST: decreased BS at the bases, especially R base; no wheezes audible bilaterally. Large well healed scar across left anterior chest and midline. Another T spine scar over the mid-upper back. HEART: regular, distant, S1S2, no rubs or murmurs noted ABD: soft and obese, nontender, no guarding, no organomegaly, BS hypoactive. EXT: no leg edema, no calf tenderness or palpable cords, distal pulses intact and symmetrical. Bilateral arthritic hand deformities. NEURO: no gross focal deficits. SKIN: no rashes, warm and dry LABS: WBC= 2.4 HGB= 8.8 PLTs= 97K Na= 134 K= 4.5 CL= 87 HCO3= 43 BUN/Cr= 32/0.9 BS= 148 CXR: (my interp)- R effusion and R basialr atelectasis appears worse, only R apex is aerated. IMPRESSION / MAJOR PROBLEMS NOW: 1. Acute on chronic Hypercarbic resp Failure 2 Restrictive Lung Disease / Atelectasis and Mucous plugging; and COPD Exacerbation. 2. R/o R basilar pneumonia 3. Steroid Dependent Rheumatoid Arthritis 4. Thrombocytopenia, with no evident active bleeding 5. h/o Thoracic Spinal fusion surgery PLAN: 1. Close monitor of resp status as he still may need MV support. 2. Ongoing Duonebs and steroids IV, wheezing is less today. 3. Consider repeat CT Chest, last study reviewed from 10/30/18. Pulm eval for possible FOB / BAL, if atelectasis non-resolved. 4. Empiric Abx coverage: Levaquin / vancomycin for now; or get ID eval. 5. Check for any Advance Directives, presently full Code support.
[2018-11-16] MEDS: Azithromycin 500 MG in Sodium Chloride 0.9% 250 ML IVPB SCH (11:56)
[2018-11-16] MEDS ORDERED: VOLTAREN 1% EXT PRN (20:22)
--- NOTE | 2018-11-17 04:47 | HP ---
HISTORY OF PRESENT ILLNESS: The patient is seen today, 11/16/2018. He is a 73-year-old [place] male with history of multiple medical problems, was brought from subacute rehabilitation at [place] because of severe lethargy and unresponsiveness. The patient was evaluated in the emergency room, and he was found to be hypercapnic with pCO2 of 98. The patient was started on BiPAP and admitted to intensive care unit for further management. REVIEW OF SYSTEMS: Deformity of both hands as well as generalized weakness, exertional shortness of breath and tendency to fall with dysfunctional gait. Other review of systems is negative. ALLERGIES: POSITIVE FOR PENICILLIN. SOCIAL HISTORY: Ex-smoker. No EtOH or substance abuse. MEDICATIONS: Reviewed as per MAR. PAST MEDICAL HISTORY: COPD, hypertension, type 2 diabetes mellitus, rheumatoid arthritis with bilateral upper extremity deformity, coronary artery disease, status post coronary artery bypass graft. PHYSICAL EXAMINATION: GENERAL: The patient is in bed, not in any cardiopulmonary distress at the time of this examination, and the patient is on BiPAP intermittently. VITAL SIGNS: Blood pressure is 110/76, temperature 98.3, respiratory rate 12, and pulse 100. HEENT: Pupils equal, reactive to light. Normal-appearing mucosa of the conjunctivae, oropharynx and nasal membrane mucosa. NECK: Supple. No JVD. No carotid bruit. No lymph node. No thyromegaly. CHEST AND LUNGS: Bilateral symmetrical expansion. Bilateral scattered rhonchi. CARDIOVASCULAR SYSTEM: PMI not localized. S1, S2. No additional sounds. ABDOMEN: Normoactive bowel sounds. No tenderness. No organomegaly. No masses. EXTREMITIES: No cyanosis, no clubbing, no edema. CENTRAL NERVOUS SYSTEM: Alert, awake, oriented x2. No neurological deficit could be appreciated. ASSESSMENT: Hypercapnic respiratory failure; severe chronic obstructive pulmonary disease, on home oxygen; advanced rheumatoid arthritis; coronary artery disease, status post coronary artery bypass graft; bilateral pulmonary infiltration which is chronic, pneumonia cannot be ruled out. PLAN: Continue current IV steroids as well as IV antibiotics that were ordered by ICU team. Bronchodilators and antibiotics. Continue Lasix. Discussed with the patient's son about the guarded prognosis given the advanced lung disease. Michaela Wood MD [facility] # [id number]
[2018-11-17] MEDS: Albuterol-Ipratrop 3 mg / 0.5 (3 ml) UD INH SCH ×6 (05:20→23:53)
[2018-11-17 05:44] LABS: HEMOGLOBIN 8.8 g/dL (12.0-18.0); MEAN CELL VOLUME 103.1 fl (80.0-94.0); RBC 2.65 Mil/uL (4.40-5.90); RED CELL DISTRIBUTION WIDTH 19.9 % (11.5-14.5); WHITE BLOOD COUNT 3.1 K/uL (4.8-10.8)
[2018-11-17 05:50] LABS: BLOOD UREA NITROGEN 41 mg/dl (9-20); CALCIUM 9.4 mg/dL (8.4-10.2); GFR NON-AFRICAN AMERICAN > 60
--- NOTE | 2018-11-17 07:59 | RAD ---
Date of service: 11/17/2018 HISTORY: r/o pna COMPARISON: Frontal chest radiograph 11/16/2018. FINDINGS: LUNGS: Infiltrate is again seen at the mid to inferior right lung zone potentially slightly diminished in the interval. Linear atelectasis remains at the left base. PLEURA: No pneumothorax bilaterally. Pleural thickening is again seen the inferior left lung zone laterally with underlying pleural effusion not excluded the right base. CARDIOVASCULAR: Calcific atherosclerotic changes are seen related to the thoracic aorta. Cardiac silhouette is obscured by right-sided infiltrate. No pulmonary vascular congestion. OSSEOUS STRUCTURES: Thoracic spinal fusion hardware reiterated. VISUALIZED UPPER ABDOMEN: Normal. OTHER FINDINGS: None. IMPRESSION: No interval improvement in mid to inferior right sided dense pulmonary infiltrate and likely underlying pleural effusion. Linear atelectasis left base unchanged versus fibrosis.
--- NOTE | 2018-11-17 08:03 | CP.CCUPN ---
CCU Subjective - Physician Review Subjective (Free Text): Awake, off BiPAP now from overnight, no distress on face mask oxygen, has had intermittent posterior headaches, no nausea, no focal deficts, no visual changes. Intermittent tachycardia noted up to 130's appearing as MAT, not assoc with hypotension nor other symptoms. Afebrile, SBP 110's, HR 90-110 sinus with PACs. RR 19 on 100% mask with 100% oxygen. ROS: No other pertinent negs or positives on 10+ system review. PMSFH: All other Nursing and physician documentation reviewed to date; no new pertinent info noted relevant to current medical problems. EXAM- HEENT: no icterus, no gaze preference NECK: No JVD visible, supple, carotids equal upstroke bilat/no bruit CHEST: decreased BS at the bases, especially R base; no wheezes audible bilaterally. Large well healed scar across left anterior chest and midline. Another T spine scar over the mid-upper back. HEART: regular, distant, S1S2, no rubs or murmurs noted ABD: soft and obese, nontender, no guarding, no organomegaly, BS hypoactive. EXT: no leg edema, no calf tenderness or palpable cords, distal pulses intact and symmetrical. Bilateral arthritic hand deformities. NEURO: no gross focal deficits. SKIN: no rashes, warm and dry LABS: WBC= 3.1 HGB= 8.8 PLTs= 103K Na= 135 K= 4.4 CL= 91 HCO3= 45 BUN/Cr= 41/1.0 BS= 111 CXR: (my interp)- R effusion and R basialr atelectasis persist, but pattern improved from yesterday's findings. IMPRESSION / MAJOR PROBLEMS NOW: 1. Acute on chronic Hypercarbic resp Failure 2 Restrictive Lung Disease / Atelectasis and Mucous plugging; and COPD Exacerbation. 2. R/o R basilar pneumonia 3. Steroid Dependent Rheumatoid Arthritis 4. Thrombocytopenia, with no evident active bleeding 5. h/o Thoracic Spinal fusion surgery PLAN: 1. Close monitor of resp status as he still may need MV support. 2. Ongoing Duonebs and steroids IV, wheezing is less today. 3. Consider repeat CT Chest, last study reviewed from 10/30/18. 4. Empiric Abx coverage: Levaquin / vancomycin for now; or get ID eval. 5. IVF hydration 6. Check for any Advance Directives, presently full Code support.
[2018-11-17] MEDS: levoFLOXacin 500 mg in D5W 500 MG/100 ML BAG IVPB SCH (08:27)
[2018-11-17] MEDS: Azithromycin 500 MG in Sodium Chloride 0.9% 250 ML IVPB SCH (08:28)
[2018-11-17] MEDS: guaiFENesin DM 100 mg-10 mg/5 ml UD PO PRN ×2 (08:31→15:08)
[2018-11-17] MEDS: Acetylcysteine 20% Inhal Soln (4ml) INH SCH ×2 (09:11→19:39)
--- NOTE | 2018-11-17 10:05 | CP.PCM.CON ---
History of Present Illness - History of Present Illness History of Present Illness: This patient is known to me from previous hospitalization, being discharged approximate one week ago. He does have chronic respiratory failure with hypercapnia and has been using noninvasive positive pressure ventilation in the form of BiPAP while hospitalized. It appears that he was not using BiPAP when he was in subacute rehabilitation likely been partly responsible for his admission complaint of respiratory distress. He was apparently complaining of shortness of breath and cough for 4-5 days prior to returning to the emergency department. He had been on a regimen of decreasing dosage of prednisone and had been currently taking 15 mg once daily. He suffers from rheumatoid arthritis and has been on Plaquenil 200 mg daily also. He does have multiple comorbidities and his medications are listed in the EMR. Chest x-ray emergency department showed consolidation in the right lower lobe as well as the left base. During his last hospitalization he underwent flexible bronchoscopy for removal of mucous plug in the right main bronchus. There has been no leukocytosis but he does have chronic anemia. Arterial blood gas showed a PaCO2 of 95 with a bicarbonate of 39.7 and a pH of 7.33. Past Patient History - Infectious Disease Hx of Infectious Diseases: None - Past Medical History & Family History Past Medical History?: Yes - Past Social History Smoking Status: Former Smoker Chewing Tobacco Use: No Cigar Use: No Alcohol: None Drugs: Denies Home Situation {Lives}: Other (subacute rehabilitation) - CARDIAC Hx Congestive Heart Failure: No Hx Hypercholesterolemia: Yes Hx Hypertension: Yes - PULMONARY Hx Asthma: Yes Hx Bronchitis: Yes Hx Chronic Obstructive Pulmonary Disease (COPD): Yes Hx Pneumonia: Yes Hx Sleep Apnea: Yes Other/Comment: suspected organized pneumonia right lower lobe. Interstitial lung disease likely related to rheumatoid arthritis - NEUROLOGICAL Hx Alzheimer's Disease: Yes Hx Dementia: Yes Hx Seizures: No - HEENT Hx HEENT Problems: No - RENAL Hx Chronic Kidney Disease: No - ENDOCRINE/METABOLIC Hx Endocrine Disorders: No Hx Hypothyroidism: No - HEMATOLOGICAL/ONCOLOGICAL Hx Human Immunodeficiency Virus (HIV): No - INTEGUMENTARY Hx Dermatological Problems: No - MUSCULOSKELETAL/RHEUMATOLOGICAL Hx Arthritis: Yes (BACK) Hx Falls: Yes Hx Fractures: Yes (Hip) Hx Rheumatoid Arthritis: Yes - GASTROINTESTINAL Hx Gastrointestinal Disorders: No - GENITOURINARY/GYNECOLOGICAL Hx Sexually Transmitted Disorders: No - PSYCHIATRIC Hx Psychophysiologic Disorder: No - SURGICAL HISTORY Hx Coronary Artery Bypass Graft: Yes (1999) Hx Coronary Stent: Yes - ANESTHESIA Hx Anesthesia: Yes Hx Anesthesia Reactions: No Hx Malignant Hyperthermia: No Meds Allergies/Adverse Reactions: Allergies Allergy/AdvReac Type Severity Reaction Status Date / Time Penicillins Allergy Unknown RASH Verified 10/30/18 15:52 - Medications Medications: Current Medications Acetaminophen (Tylenol 325mg Tab) 650 mg PO Q6 PRN PRN Reason: Temperature Last Admin: 11/17/18 07:29 Dose: 650 mg Acetylcysteine (Acetylcysteine 20%) 2 ml INH RBID ARTEMIO Last Admin: 11/17/18 09:11 Dose: Not Given Albuterol/Ipratropium (Duoneb 3 Mg/0.5 Mg (3 Ml) Ud) 3 ml INH RQ4 ARTEMIO Last Admin: 11/17/18 08:08 Dose: 3 ml Famotidine (Pepcid) 20 mg IVP Q12 ARTEMIO Last Admin: 11/17/18 08:31 Dose: 20 mg Guaifenesin/Dextromethorphan (Robitussin Dm) 5 ml PO Q6 PRN PRN Reason: Cough Last Admin: 11/17/18 08:31 Dose: 5 ml Home Med (Patient's Own Medication) 2 unit EXT QID PRN PRN Reason: Other Last Admin: 11/16/18 21:57 Dose: 2 unit Azithromycin 500 mg/ Sodium (Chloride) 250 mls @ 250 mls/hr IVPB DAILY [facility]; Protocol Last Admin: 11/17/18 08:28 Dose: 250 mls/hr Levofloxacin/Dextrose (Levaquin 500mg) 500 mg in 100 mls @ 100 mls/hr IVPB DAILY ARTEMIO; Protocol Last Admin: 11/17/18 08:27 Dose: 100 mls/hr Montelukast Sodium (Singulair) 10 mg PO DAILY ARTEMIO Last Admin: 11/17/18 08:27 Dose: 10 mg Tamsulosin HCl (Flomax) 0.4 mg PO HS ARTEMIO Last Admin: 11/16/18 21:53 Dose: 0.4 mg Zolpidem Tartrate (Ambien) 5 mg PO HS PRN PRN Reason: Sleep Last Admin: 11/16/18 21:56 Dose: 5 mg Physical Exam - Additional Findings Additional findings: Awake and alert when examined. Appears fairly well oriented and cooperative with examination. Mild cushingoid facies noted. No cyanosis, trace dependent edema, no calf tenderness. Pharynx is pink and mucous membranes are moist. Neck is supple and trachea is midline. No dullness on percussion of the thorax anteriorly. No subcutaneous emphysema. Breath sounds are diminished bilaterally. Early medium rales are heard throughout both lungs. No audible wheezing or bronchial breath sounds. Breath sounds in the right base posteriorly are absent. Heart sounds are distant and the rhythm is regular. Abdomen is soft and nontender with normal bowel sounds. Results - Vital Signs Recent Vital Signs: Last Vital Signs Temp 97.9 F 11/17/18 08:05 Pulse 117 H 11/17/18 08:05 Resp 18 11/17/18 08:05 BP 108/62 11/17/18 08:05 Pulse Ox 95 11/17/18 08:05 - Labs Result Diagrams: 11/17/18 04:45 11/17/18 04:45 Labs: Laboratory Results - last 24 hr 11/16/18 11/16/18 11/16/18 11:10 16:41 21:09 WBC RBC Hgb Hct MCV MCH MCHC RDW Plt Count Sodium Potassium Chloride Carbon Dioxide Anion Gap BUN Creatinine Est GFR ( Amer) Est GFR (Non-Af Amer) POC Glucose (mg/dL) 203 H 145 H 171 H Random Glucose Calcium 11/17/18 11/17/18 11/17/18 04:45 04:45 05:37 WBC 3.1 L RBC 2.65 L Hgb 8.8 L Hct 27.3 L MCV 103.1 H MCH 33.0 H MCHC 32.0 L RDW 19.9 H Plt Count 103 L Sodium 135 Potassium 4.4 Chloride 91 L Carbon Dioxide 45 H* Anion Gap 3 L BUN 41 H Creatinine 1.0 Est GFR ( Amer) > 60 Est GFR (Non-Af Amer) > 60 POC Glucose (mg/dL) 118 H Random Glucose 111 H Calcium 9.4 Assessment & Plan (1) Chronic respiratory failure with hypoxia and hypercapnia Status: Chronic Priority: High Comment: Acute hypercapnic respiratory failure. (2) Rheumatoid arthritis Status: Chronic Priority: High (3) ILD (interstitial lung disease) Status: Chronic Priority: High (4) Pulmonary fibrosis determined by high resolution computed tomography Status: Chronic Priority: High (5) Sleep apnea, obstructive Status: Chronic Priority: High - Assessment and Plan (Free Text) Plan: The patient has been able to avoid endotracheal intubation and mechanical ventilation at this time. Discussed with the patient and his daughter the need for continued use of BiPAP ventilation via facemask, at a minimum overnight. Also may use noninvasive ventilation during daytime hours as needed. May use nasal cannula during daytime hours when comfortable. Cautiously avoid overuse of supplemental oxygen, and maintain SPO2 in the range of 90-95. Will reduce dosing of parenteral corticosteroids as able. Aerosol therapy plus mucolytic agents. - Date & Time Date: 11/17/18 Time: 10:05
[2018-11-17] MEDS ORDERED: methylPREDNISolone 30 MG in Sodium Chloride 0.9% 50 ML IV SCH (10:15)
[2018-11-17] MEDS: MethylPREDNISolone 40 mg Vial IVP SCH ×2 (11:28→18:38)
--- NOTE | 2018-11-17 20:34 | CARD ---
APPROVED REPORT Date of service: 11/17/2018 EKG Measurement Heart [id number] CA 168P [id number] <Conclusion> Sinus tachycardia with consecutive premature atrial complexes Right bundle branch block Possible Inferior infarct, age undetermined Abnormal ECG
[2018-11-18 01:36] LABS: ABG ALLEN TEST YES; ARTERIAL BLOOD GAS HCO3 40.1 mmol/L (21-28); ARTERIAL BLOOD GAS HEMOGLOBIN 9.9 g/dL (11.7-17.4); ARTERIAL BLOOD GAS O2 CAPACITY 13.5 mL/dL (16-24); ARTERIAL BLOOD GAS O2 CONTENT 12.6 ML/dL (15-23); ARTERIAL BLOOD GAS O2 SAT 93.3 % (95-98); ARTERIAL BLOOD GAS PCO2 55 mm/Hg (35-45); ARTERIAL BLOOD GAS PH 7.52 (7.35-7.45); ARTERIAL BLOOD GAS PO2 51 mm/Hg (80-100); ARTERIAL BLOOD GAS TCO2 46.6 mmol/L (22-28)
[2018-11-18] MEDS: MethylPREDNISolone 40 mg Vial IVP SCH ×3 (02:31→21:39)
[2018-11-18] MEDS ORDERED: Metoprolol 1 mg/ml Inj IVP STA (04:57)
[2018-11-18] MEDS: Albuterol-Ipratrop 3 mg / 0.5 (3 ml) UD INH SCH ×5 (05:19→19:41)
[2018-11-18 05:28] LABS: ABG ALLEN TEST YES; ARTERIAL BLOOD GAS HCO3 38.8 mmol/L (21-28); ARTERIAL BLOOD GAS O2 SAT 91.9 % (95-98); ARTERIAL BLOOD GAS PCO2 57 mm/Hg (35-45); ARTERIAL BLOOD GAS PO2 50 mm/Hg (80-100); ARTERIAL BLOOD GAS TCO2 46.2 mmol/L (22-28)
[2018-11-18 06:21] LABS: HEMOGLOBIN 9.8 g/dL (12.0-18.0); MEAN CELL VOLUME 103.2 fl (80.0-94.0); MEAN CORPUSCULAR HEMOGLOBIN 32.8 pg (27.0-31.0); MEAN CORPUSCULAR HGB CONC 31.8 g/dL (33.0-37.0); RBC 2.98 Mil/uL (4.40-5.90); RED CELL DISTRIBUTION WIDTH 20.4 % (11.5-14.5)
[2018-11-18 06:46] LABS: BLOOD UREA NITROGEN 28 mg/dl (9-20); CALCIUM 9.5 mg/dL (8.4-10.2); GFR NON-AFRICAN AMERICAN > 60
[2018-11-18] MEDS: Acetylcysteine 20% Inhal Soln (4ml) INH SCH ×2 (07:22→19:40)
[2018-11-18] MEDS: levoFLOXacin 500 mg in D5W 500 MG/100 ML BAG IVPB SCH (08:26)
[2018-11-18] MEDS: Azithromycin 500 MG in Sodium Chloride 0.9% 250 ML IVPB SCH (08:44)
--- NOTE | 2018-11-18 09:30 | RAD ---
Date of service: 11/18/2018 HISTORY: r/o pulmonary congestion COMPARISON: Portable chest 11/17/2018. FINDINGS: LUNGS: Scattered pulmonary fibrotic change are identified bilaterally once again with linear atelectasis or fibrosis identified in the left base. Variable pleural thickening seen the mid to inferior left lung zone laterally once again. The right side, limited improvement in right basilar airspace disease identified with overall volume loss reiterated at the right chest. PLEURA: Mild right pleural effusion not excluded. None is evident at the left. No pneumothorax bilaterally. CARDIOVASCULAR: Calcific atherosclerotic changes are seen related to the thoracic aorta. Stable cardiomegaly. Interval borderline pulmonary vascular congestion noted. OSSEOUS STRUCTURES: Thoracic spinal fusion hardware in situ once again. VISUALIZED UPPER ABDOMEN: Normal. OTHER FINDINGS: None. IMPRESSION: Limited improved right basilar infiltrate with mild right pleural effusion remaining. Linear atelectasis identified at the left base versus fibrosis once again. Borderline pulmonary vascular congestion now evident.
[2018-11-18] MEDS ORDERED: methylPREDNISolone 30 MG in Sodium Chloride 0.9% 50 ML IV SCH (13:15)
--- NOTE | 2018-11-18 13:18 | CP.PCM.PN ---
Subjective - Date & Time of Evaluation Date of Evaluation: 11/18/18 Time of Evaluation: 13:18 - Subjective Subjective: The patient is seen on rounds in the intensive care unit. Interim events were reviewed in the EMR. Patient's condition was discussed with his nurse. Family members at bedside were also involved in conversation. Appears to have been some degree of delirium overnight requiring multiple doses of medication as well as some tachyarrhythmia that required IV Cardizem. Unable to sleep last night because of the above and also noncompliant with the use of the BiPAP mask ventilation. Medications were reviewed and there is a possibility that levofloxacin may be causing some neurological complications. At present he appears to be much more relaxed and appears to have recall of most of last night's events. He denies having any chest pain at the present time. He is currently being compliant with the use of high flow nasal cannula and will resume use of the BiPAP mask ventilation after finishing lunch. There is no cyanosis. Mentally he appears clear at the present time. Pharynx is pink and mucous membranes are moist without exudate. Neck is supple and trachea is midline. There is no dullness to percussion. No subcutaneous emphysema. Breath sounds are diminished but present equally in both lungs. Coarse rales are heard throughout both lungs posteriorly. No audible wheezes at this time. No bronchial breath sounds. Heart sounds are distant and mildly tachycardic but appear regular with PHBs. Abdomen is soft and nontender. Agitation/delirium overnight may be in part pharmacologic in origin but likely also a result of hypercapnia and hypoxemia. Late stage fibrosing lung disease likely a manifestation of his rheumatoid arthritis. Comorbidity includes chronic obstructive pulmonary disease with chronic respiratory failure. Levofloxacin has been discontinued. We'll continue azithromycin. Patient is compliant at this time with the use of high flow nasal cannula during the daytime and BiPAP mask ventilation nocturnally. Home medications were reviewed and Zebeta, Plaquenil and baclofen have been resumed. Discussed his prognosis with his primary medical doctor and there is agreement that a family discussion regarding prognosis and possibly hospice is indicated. Objective - Vital Signs/Intake and Output Vital Signs (last 24 hours): Temp Pulse Resp BP Pulse Ox 97.3 F L 128 H 27 H 109/76 94 L 11/18/18 06:00 11/18/18 10:00 11/18/18 11:00 11/18/18 10:00 11/18/18 10:00 Intake and Output: 11/18/18 11/18/18 11:59 23:59 Intake Total 26 Output Total 600 Balance -574 - Medications Medications: Current Medications Acetaminophen (Tylenol 325mg Tab) 650 mg PO Q6 PRN PRN Reason: Temperature Last Admin: 11/17/18 18:39 Dose: 650 mg Acetaminophen (Tylenol 325mg Tab) 650 mg PO Q4 PRN PRN Reason: Pain, moderate (4-7) Last Admin: 11/18/18 11:33 Dose: 650 mg Acetylcysteine (Acetylcysteine 20%) 2 ml INH RBID ARTEMIO Last Admin: 11/18/18 07:22 Dose: 2 ml Albuterol/Ipratropium (Duoneb 3 Mg/0.5 Mg (3 Ml) Ud) 3 ml INH RQID ARTEMIO Famotidine (Pepcid) 20 mg IVP Q12 ARTEMIO Last Admin: 11/18/18 08:55 Dose: 20 mg Guaifenesin/Dextromethorphan (Robitussin Dm) 5 ml PO Q6 PRN PRN Reason: Cough Last Admin: 11/17/18 15:08 Dose: 5 ml Home Med (Patient's Own Medication) 2 unit EXT QID PRN PRN Reason: Other Last Admin: 11/16/18 21:57 Dose: 2 unit Azithromycin 500 mg/ Sodium (Chloride) 250 mls @ 250 mls/hr IVPB DAILY [facility]; Protocol Last Admin: 11/18/18 08:44 Dose: 250 mls/hr Diltiazem HCl 125 mg/ Sodium (Chloride) 125 mls @ 5 mls/hr IV .Q24H ONE; Protocol Stop: 11/19/18 02:07 Last Titration: 11/18/18 03:28 Dose: 12.5 mg/hr, 12.5 mls/hr Methylprednisolone 30 mg/ (Sodium Chloride) 50 mls @ 100 mls/hr IV Q12H ARTEMIO Montelukast Sodium (Singulair) 10 mg PO DAILY [facility]IO Last Admin: 11/18/18 08:27 Dose: 10 mg Tamsulosin HCl (Flomax) 0.4 mg PO HS ARTEMIO Last Admin: 11/17/18 21:52 Dose: 0.4 mg Zolpidem Tartrate (Ambien) 5 mg PO HS PRN PRN Reason: Sleep Last Admin: 11/17/18 21:52 Dose: 5 mg - Labs Labs: 11/18/18 05:40 11/18/18 05:40 PT 10.4 Seconds (9.8-13.1) 11/15/18 14:45 INR 0.9 11/15/18 14:45 APTT 35.1 Seconds (25.6-37.1) 11/15/18 14:45 Assessment and Plan (1) Chronic respiratory failure with hypoxia and hypercapnia Status: Chronic (2) Rheumatoid arthritis Status: Chronic (3) ILD (interstitial lung disease) Status: Chronic (4) Pulmonary fibrosis determined by high resolution computed tomography Status: Chronic (5) Sleep apnea, obstructive Status: Chronic
--- NOTE | 2018-11-18 21:46 | PN ---
DATE: 11/17/2018 SUBJECTIVE: The patient was seen on 11/17/2018. He was still short of breath and he was on high-flow oxygen. PHYSICAL EXAMINATION: VITAL SIGNS: Blood pressure was 110/67, temperature 97.3, respiratory rate 18 and pulse 84. HEENT: Pupils equal, reactive to light. Normal-appearing mucosa of the conjunctivae, oropharynx and nasal membrane mucosa. NECK: Supple. No JVD. No carotid bruit. No lymph node. No thyromegaly. CHEST AND LUNGS: Bilateral symmetrical expansion. Good air exchange. Few basal rales. CARDIOVASCULAR: PMI not localized. S1, S2. No additional sounds. ABDOMEN: Normoactive bowel sounds. No tenderness. No organomegaly. No masses. EXTREMITIES: No cyanosis, no clubbing, no edema. CENTRAL NERVOUS SYSTEM: Alert, awake, oriented x2. No neurological deficit could be appreciated. ASSESSMENT: 1. Chronic rheumatoid-related lung disease. 2. Pneumonia. 3. Exacerbation of chronic obstructive pulmonary disease. 4. Hypertension. 5. Hypercapnic respiratory failure. 6. Advanced rheumatoid arthritis. PLAN: Continue current medications and management. Follow pulmonary recommendations. Discussed with the patient's son guarded prognosis. Michaela Wood MD
--- NOTE | 2018-11-18 22:01 | PN ---
DATE: 11/18/2018 SUBJECTIVE: The patient is seen today, 11/18/2018. He had tachycardia overnight and the patient also is in the BiPap. PHYSICAL EXAMINATION: VITAL SIGNS: Blood pressure 108/70, temperature 97, respiratory rate 20 and pulse 120. HEENT: Pupils equal, reactive to light. Normal-appearing mucosa of the conjunctivae, oropharynx and nasal membrane mucosa. NECK: Supple. No JVD. No carotid bruit. No lymph node. No thyromegaly. CHEST AND LUNGS: Bilateral symmetrical expansion. Good air exchange. There are bilateral basilar rales. CARDIOVASCULAR: PMI not localized. S1, S2. No additional sounds. ABDOMEN: Normoactive bowel sounds. No tenderness. No organomegaly. EXTREMITIES: No cyanosis, no clubbing, no edema. CENTRAL NERVOUS SYSTEM: Alert, awake, oriented x2. No neurological deficit could be appreciated. ASSESSMENT: 1. Hypercapnic respiratory failure. 2. Hypertension. 3. Coronary artery disease, status post coronary artery bypass graft. 4. Chronic lung changes related to rheumatoid arthritis disease. PLAN: Discussed with Dr. Amaya. We will order the beta-klever bisoprolol 5 mg stat dose and daily. Cardiology consult. Continue current medications. Guarded prognosis. Michaela Wood MD
[2018-11-19 06:57] LABS: HEMOGLOBIN 10.2 g/dL (12.0-18.0); MEAN CORPUSCULAR HEMOGLOBIN 33.1 pg (27.0-31.0); MEAN CORPUSCULAR HGB CONC 31.5 g/dL (33.0-37.0); RBC 3.1 Mil/uL (4.40-5.90); RED CELL DISTRIBUTION WIDTH 21.1 % (11.5-14.5); WHITE BLOOD COUNT 3.8 K/uL (4.8-10.8)
[2018-11-19 07:08] LABS: BLOOD UREA NITROGEN 22 mg/dl (9-20); CALCIUM 9.5 mg/dL (8.4-10.2); GFR NON-AFRICAN AMERICAN > 60
[2018-11-19] MEDS: Albuterol-Ipratrop 3 mg / 0.5 (3 ml) UD INH SCH ×4 (07:56→19:11)
[2018-11-19] MEDS: Acetylcysteine 20% Inhal Soln (4ml) INH SCH ×2 (07:56→19:11)
--- NOTE | 2018-11-19 09:00 | RAD ---
Date of service: 11/19/2018 HISTORY: r/o chf COMPARISON: Portable chest 11/18/2018. FINDINGS: LUNGS: Improved aeration is appreciate the inferior right lung zone with residual infiltrates noted at the mid to inferior right right zones. Linear atelectasis remains at the left base with underlying bony fibrotic changes reiterated bilaterally. PLEURA: No significant pleural effusion identified, no pneumothorax apparent. CARDIOVASCULAR: Calcific atherosclerotic changes are seen related to the thoracic aorta. Surgical clips again seen at the medial left apex and left hilar region.. Stable cardiac size. Borderline pulmonary vascular congestion. OSSEOUS STRUCTURES: Thoracic spinal fusion hardware stable in appearance. VISUALIZED UPPER ABDOMEN: Normal. OTHER FINDINGS: None. IMPRESSION: Improving infiltrate identified at the mid to inferior right lung zones with no interval change in borderline pulmonary vascular congestion.
[2018-11-19] MEDS: MethylPREDNISolone 40 mg Vial IVP SCH ×2 (09:01→20:06)
[2018-11-19] MEDS: Azithromycin 500 MG in Sodium Chloride 0.9% 250 ML IVPB SCH (09:02)
--- NOTE | 2018-11-19 11:48 | OP ---
PROCEDURE DATE: 11/19/2018 LOCATION: The patient in ICU, bed 433. TIME SPENT: 35 minutes. The patient is seen and evaluated at the bedside. Past medical, surgical, social history reviewed. SUBJECTIVE: A 73-year-old male, transferred from group home with shortness of breath, history of rheumatoid arthritis, rheumatoid lung disease with interstitial lung disease/myelofibrosis and chronic obstructive pulmonary disease, recently admitted for acute hypercapnic hypoxic respiratory failure, readmitted for the same. Currently on BiPap overnight. PHYSICAL EXAMINATION: VITAL SIGNS: Temperature 97.5, heart rate 80 to 110 and regular, blood pressure 171 to 119/ 64, respiratory rate 25, thoracoabdominal, saturation 100% on BiPap. Intake of 1316, output 1150, positive balance 166. Urine output 1150. Weight 148 pounds. HEAD, EYES, EARS, NOSE AND THROAT: Pupils reactive. Conjunctivae pink. Sclerae white. NECK: Supple. Trachea central. LUNGS: Breath sounds diminished bilaterally. Inspiratory crackles bilaterally, more at the bases. HEART: Rhythm regular. S1 and S2 distant. No audible murmur. ABDOMEN: Bowel sounds present. Soft and nontender. CURRENT MEDICATIONS: Tylenol 650 every 6 hours p.r.n., Mucomyst 2 mL via nebulizer twice daily, DuoNeb 3 mL 4 times a day, baclofen 10 mg p.o. daily, Zebeta 2.5 mg p.o. daily, Pepcid 20 mg IV every 12 hours, guaifenesin with dextromethorphan 5 mL every 6 hours p.r.n., Plaquenil 200 mg p.o. daily, Solu-Medrol 30 mg IV every 12 hours, Singulair 10 mg p.o. daily, Flomax 0.4 mg p.o. daily, zolpidem 5 mg p.o. at bedtime p.r.n. LABORATORY DATA: WBC 3.8, hemoglobin 10.2, hematocrit 32.5, platelet count 121. PT 10.4, INR 1 and PTT 35.1. ABG: pH 7.5, pCO2 of 50, pO2 of 50 on high-flow oxygen 45%. SMA-7: Sodium 137, potassium 4.4, chloride 90, CO2 of 39, blood urea nitrogen 22, creatinine 0.9, random glucose 151 and calcium 9.5. Urinalysis: Leukocyte esterase negative, RBC 2, WBC 1. Urine bacteria few. Microbiology, blood culture no growth reported. Nasal smear MRSA negative. Chest x-ray from the morning, improved aeration is appreciated in the inferior right lung zone with residual infiltrate at the mid to inferior right zone, linear atelectasis remains at the left base, no significant pleural effusion, calcific atherosclerotic changes in the thoracic aorta, surgical clips at the medial left base and left hilar region. IMPRESSION: 1. Neurologic: Alert and awake, but periods of confusion secondary to significant hypoxemia hypercarbia. No clear evidence of sepsis. 2. Pulmonary: Acute hypercapnic hypoxic respiratory failure, chronic obstructive pulmonary disease, superimposed pulmonary fibrosis/interstitial lung disease/rheumatoid arthritis. Continue oxygen supplement with noninvasive ventilatory support, bronchodilator every 4 hours, systemic steroid, dose reduced. 3. Cardiac: Tachycardia related to the systemic inflammatory response syndrome, currently improved on bisoprolol daily. 4. Hematology. No leukocytosis, anemia of chronic disease, low platelet count, stable. 5. Gastrointestinal: Normal liver function test. 6. Renal: No electrolyte abnormalities. BUN and creatinine remain stable. 7. Endocrine: No significant hypothyroidism or history of diabetes. Maintain blood sugar below 180 mg, steroid-induced hyperglycemia. 8. Continue other medications including Singulair, Flomax for prostate, and baclofen for muscle spasm. 9. Prognosis remains guarded. Monitor closely for need for mechanical ventilation. Freeman Roberts MD
[2018-11-19] MEDS: guaiFENesin DM 100 mg-10 mg/5 ml UD PO PRN ×2 (14:17→20:03)
--- NOTE | 2018-11-19 20:00 | PN ---
DATE: 11/19/2018 SUBJECTIVE: The patient's sinus tachycardia has improved. His shortness of breath also improved. He denies any dyspnea or chest pain. PHYSICAL EXAMINATION VITAL SIGNS: Blood pressure 107/52, heart rate 91, temperature 97.5, respirations 24. HEENT: Normocephalic. CHEST: Bilateral rhonchi. HEART: S1 and S2 regular. EXTREMITIES: No edema. LABORATORY DATA: Today's SMA-7: Sodium 137, potassium 4.4, chloride 90, CO2 of 39, glucose 151, BUN 22, creatinine 0.9. Today's hemoglobin and hematocrit are 10.1 and 32.5, white count 3.8 and platelet count 121,000. Today's chest x-ray revealed improving infiltrate identified at the mid to inferior right lung zones with no interval change in the borderline pulmonary vascular congestion. ASSESSMENT: 1. Coronary artery disease. 2. Exacerbation of chronic obstructive lung disease. 3. Systemic hypertension. 4. Rheumatoid arthritis. RECOMMENDATIONS: Continue albuterol inhaler four times a day, Pepcid 20 mg intravenously twice a day, Plaquenil 200 mg daily, Singulair 10 mg daily, Solu-Medrol 30 mg intravenously every 12 hours and Zebeta 2.5 mg daily. Geo Whitmore MD
[2018-11-20 05:58] LABS: ALB/GLOB RATIO 1.2 (1.0-2.1); ALBUMIN 2.7 g/dL (3.5-5.0); ALT/SGPT 31 U/L (21-72); AST/SGOT 36 U/L (17-59); BLOOD UREA NITROGEN 26 mg/dl (9-20); CALCIUM 9.2 mg/dL (8.4-10.2); GFR NON-AFRICAN AMERICAN > 60
[2018-11-20 06:37] LABS: BASO % 1.1 % (0.0-2.0); EOS % 0.2 % (0.0-4.0); LYMPH # 0.5 K/uL (1.0-4.3); LYMPH % 18.6 % (20.0-40.0); MEAN CELL VOLUME 105.3 fl (80.0-94.0); MEAN CORPUSCULAR HEMOGLOBIN 32.8 pg (27.0-31.0); MEAN CORPUSCULAR HGB CONC 31.2 g/dL (33.0-37.0); MEAN PLATELET VOLUME 10.7 fl (7.2-11.7); MONO # 0.3 K/uL (0.0-0.8); MONO % 11.4 % (0.0-10.0); NEUT # 1.9 K/uL (1.8-7.0); NEUT % 68.7 % (50.0-75.0); NRBC % 1.6 % (0.0-0.0); RBC 3.03 Mil/uL (4.40-5.90); RED CELL DISTRIBUTION WIDTH 20.7 % (11.5-14.5); WHITE BLOOD COUNT 2.7 K/uL (4.8-10.8)
[2018-11-20] MEDS: Albuterol-Ipratrop 3 mg / 0.5 (3 ml) UD INH SCH ×4 (08:01→19:48)
[2018-11-20] MEDS: Acetylcysteine 20% Inhal Soln (4ml) INH SCH ×2 (08:01→19:48)
--- NOTE | 2018-11-20 08:32 | CON ---
DATE: 11/18/2018 CARDIOLOGY CONSULTATION REASON FOR CONSULTATION: Sinus tachycardia and abnormal EKG. HISTORY OF PRESENT ILLNESS: The patient is a 73-year-old male originally from [place] who has a history of coronary artery disease and CABG in the past, history of excerebration of chronic obstructive lung disease, and history of recent fall with spinal fracture and underwent surgery about a year ago. The patient presented because of shortness of breath and was admitted to ICU with excerebration of chronic obstructive lung disease. The patient is noted to be in significant sinus tachycardia with frequent APCs. IV Cardizem was initiated. The patient denies any retrosternal chest pain. SOCIAL HISTORY: The patient is a former smoker. He used to smoke hookah. He is a social drinker. He is and lives with his . MEDICATIONS: Ambien 5 mg at bedtime, acetylcysteine 2 mL inhalation b.i.d., Zithromax 500 mg intravenously daily, Cardizem infusion is chronically on hold, Flomax 0.4 mg at bedtime, baclofen 10 mg daily, Pepcid 20 mg intravenously twice a day, Plaquenil 200 mg daily, Singulair 10 mg daily, Solu-Medrol 30 mg intravenously every 12 hours, Zebeta 2.5 mg daily. REVIEW OF SYSTEMS: No fever or chills. No hemoptysis. No retrosternal chest pain. PHYSICAL EXAMINATION: GENERAL: The patient is an elderly male who is mildly tachypneic, but does not appear to be in acute distress. VITAL SIGNS: Blood pressure 111/72, heart rate 124, temperature 97.3, respirations 27. HEENT: Normocephalic. CHEST: Diffuse bilateral rhonchi. HEART: S1 and S2 are regular. ABDOMEN: Soft. EXTREMITIES: Significant deformity of both hands, related to rheumatoid arthritis. LABORATORY DATA: Today's hemoglobin and hematocrit 9.8 and 30.7, white count 5, and platelet count 109,000. Today's SMA-7: Sodium 137, potassium 4.2, chloride 91, CO2 of 42, glucose 87, BUN 28, creatinine 0.8. PTT and INR are within normal limits. Blood culture is negative after 48 hours. Most recent chest x-ray report limited, improved right basilar infiltrate and mild right pleural effusion remaining. Linear atelectasis identified, atelectasis versus fibrosis once again. Borderline pulmonary vascular congestion. The most recent EKG done yesterday reveals sinus tachycardia at the rate of 106, premature atrial complexes, right bundle-branch block and possible inferior infract age indeterminate. The most recent echo was in 03/2018, and it revealed a normal ejection fraction. ASSESSMENT: 1. Excerebration of chronic obstructive lung disease. 2. Consider underlying right-sided pneumonia. 3. History of coronary artery disease.S/P CABG 4. 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 5. Mild anemia and mild thrombocytopenia. 6. History of rheumatoid arthritis. RECOMMENDATIONS: Continue current intravenous Zithromax 500 mg daily. Hold any further IV Cardizem. Treatment of sinus tachycardia is the treatment of the primary recommendation which is pneumonia and excerebration of chronic obstructive lung disease as sinus tachycardia psychological response. Continue current Plaquenil, methylprednisolone, Singulair, and Zebeta. Geo Whitmore MD [facility]ICK
--- NOTE | 2018-11-20 08:51 | CP.PCM.PN ---
Subjective - Date & Time of Evaluation Date of Evaluation: 11/20/18 Time of Evaluation: 08:51 - Subjective Subjective: Seen on morning rounds in the ICU. Lying flat in bed, using High Flow nasal canula presently. Appears more comfortable, states he was able to sleep last night. Oxygenation remains in the low 90s on cuerrent settings. Using BiPAP mask ventilation overnight. Vital signs remain stable, continues afebrile. Chest x-ray shows improved aeration of the RLL. WBC down to 2.7 and platelets 86, Hgb stable @ 10 (back on plaquenil). More comfortable, still has some respiratory recruitment (chronically). Able to speak more with less dyspnea. No dullness on percussion of the anterior chaest wall. Dull to percussion right lower lobe region posteriorly. Breath sounds are present equally in both lungs anteriorly. More diminished posteriorly on the right with some bronchial breath sounds heard. No audible wheezes appreciated. Continue to reduce steroids. Will place Plaquenil on hold for now. Monitor CBC. Begin some degree of physical therapy-OOB to chair. May transfer out of ICU. Objective - Vital Signs/Intake and Output Vital Signs (last 24 hours): Temp Pulse Resp BP Pulse Ox 97.3 F L 63 24 109/55 L 90 L 11/20/18 08:00 11/20/18 08:01 11/20/18 08:29 11/20/18 08:00 11/20/18 08:00 Intake and Output: 11/19/18 11/20/18 23:59 11:59 Output Total 700 Balance -700 - Medications Medications: Current Medications Acetaminophen (Tylenol 325mg Tab) 650 mg PO Q6 PRN PRN Reason: Temperature Last Admin: 11/19/18 20:03 Dose: 650 mg Acetaminophen (Tylenol 325mg Tab) 650 mg PO Q4 PRN PRN Reason: Pain, moderate (4-7) Last Admin: 11/18/18 18:46 Dose: 650 mg Acetylcysteine (Acetylcysteine 20%) 2 ml INH RBID [facility] Last Admin: 11/20/18 08:01 Dose: 2 ml Albuterol/Ipratropium (Duoneb 3 Mg/0.5 Mg (3 Ml) Ud) 3 ml INH RQID [facility] Last Admin: 11/20/18 08:01 Dose: 3 ml Baclofen (Lioresal) 10 mg PO DAILY [facility] Last Admin: 11/19/18 08:59 Dose: 10 mg Bisoprolol Fumarate (Zebeta) 2.5 mg PO DAILY [facility] Last Admin: 11/19/18 09:02 Dose: 2.5 mg Famotidine (Pepcid) 20 mg IVP Q12 [facility] Last Admin: 11/19/18 20:06 Dose: 20 mg Guaifenesin/Dextromethorphan (Robitussin Dm) 5 ml PO Q6 PRN PRN Reason: Cough Last Admin: 11/19/18 20:03 Dose: 5 ml Home Med (Patient's Own Medication) 2 unit EXT QID PRN PRN Reason: Other Last Admin: 11/16/18 21:57 Dose: 2 unit Hydroxychloroquine Sulfate (Plaquenil) 200 mg PO DAILY [facility]; Protocol Last Admin: 11/19/18 09:00 Dose: 200 mg Methylprednisolone (Solu-Medrol) 30 mg IVP Q12 [facility] Last Admin: 11/19/18 20:06 Dose: 30 mg Montelukast Sodium (Singulair) 10 mg PO DAILY [facility] Last Admin: 11/19/18 09:00 Dose: 10 mg Tamsulosin HCl (Flomax) 0.4 mg PO HS [facility] Last Admin: 11/19/18 21:11 Dose: 0.4 mg - Labs Labs: 11/20/18 04:55 11/20/18 04:55 PT 10.4 Seconds (9.8-13.1) 11/15/18 14:45 INR 0.9 11/15/18 14:45 APTT 35.1 Seconds (25.6-37.1) 11/15/18 14:45 Assessment and Plan (1) Chronic respiratory failure with hypoxia and hypercapnia Status: Chronic (2) Rheumatoid arthritis Status: Chronic (3) ILD (interstitial lung disease) Status: Chronic (4) Pulmonary fibrosis determined by high resolution computed tomography Status: Chronic (5) Sleep apnea, obstructive Status: Chronic
[2018-11-20] MEDS: MethylPREDNISolone 40 mg Vial IVP SCH ×3 (09:05→22:36)
[2018-11-20] MEDS ORDERED: methylPREDNISolone 20 MG in Sodium Chloride 0.9% 50 ML IV SCH (10:15)
[2018-11-20] MEDS: guaiFENesin DM 100 mg-10 mg/5 ml UD PO PRN (19:29)
--- NOTE | 2018-11-20 21:11 | CARD ---
APPROVED REPORT Date of service: 11/18/2018 EKG Measurement Heart [id number] CT [id number] <Conclusion> Sinus tachycardia with short runs of rapid atrial fibrillation and premature atrial complexes Right bundle branch block, plus right ventricular hypertrophy Abnormal ECG
--- NOTE | 2018-11-20 22:25 | PN ---
DATE: 11/20/2018 SUBJECTIVE: The patient is seen today, 11/20/2018. He is still having shortness of breath. PHYSICAL EXAMINATION: VITAL SIGNS: Blood pressure 101/59, temperature 98.3, respiratory rate 20, and pulse 94. HEENT: Pupils equal, reactive to light. Normal-appearing mucosa of the conjunctivae, oropharynx and nasal membrane mucosa. NECK: Supple. No JVD. No carotid bruit. No lymph node. No thyromegaly. CHEST AND LUNGS: Bilateral symmetrical expansion. Good air exchange. No rales. Scattered rhonchi and basilar rales. CARDIOVASCULAR SYSTEM: PMI not localized. S1, S2. No additional sounds. ABDOMEN: Normoactive bowel sounds. No tenderness. No organomegaly. No masses. EXTREMITIES: No cyanosis, no clubbing, no edema. Positive deformity of the severe advanced rheumatoid arthritis. CENTRAL NERVOUS SYSTEM: Alert, awake, oriented x2. No neurological deficit could be appreciated. ASSESSMENT: 1. Hypercapnic respiratory failure, bilateral airspace disease with possible pneumonia which would be healthcare-acquired pneumonia. 2. Advanced rheumatoid arthritis. 3. Hypertension. 4. Coronary artery disease, status post coronary artery bypass graft. PLAN: Continue current medications and taper steroids as tolerated. Follow pulmonary recommendations and transferred to medical floor. Michaela Wood MD
[2018-11-21] MEDS: guaiFENesin DM 100 mg-10 mg/5 ml UD PO PRN ×2 (02:52→18:37)
[2018-11-21 06:21] LABS: HEMOGLOBIN 9.8 g/dL (12.0-18.0); MEAN CELL VOLUME 103.5 fl (80.0-94.0); MEAN CORPUSCULAR HEMOGLOBIN 33.1 pg (27.0-31.0); MEAN CORPUSCULAR HGB CONC 31.9 g/dL (33.0-37.0); RBC 2.96 Mil/uL (4.40-5.90); RED CELL DISTRIBUTION WIDTH 20.9 % (11.5-14.5); WHITE BLOOD COUNT 2.8 K/uL (4.8-10.8)
--- NOTE | 2018-11-21 07:08 | PN ---
DATE: 11/20/2018 SUBJECTIVE: The patient denies chest pain. He is currently on BiPAP. He is experiencing mild productive cough. PHYSICAL EXAMINATION: VITAL SIGNS: Blood pressure 93/48, heart rate 66, temperature 98.1, respirations 16. HEENT: Pale conjunctivae. CHEST: Diffuse bilateral rhonchi. HEART: S1 and S2 regular. EXTREMITIES: No pedal edema. LABORATORY DATA: Today's SMA-7: Sodium 139, potassium 4.2, chloride 92, CO2 of 42, glucose 104, BUN 26, creatinine 0.8. Today's hemoglobin and hematocrit 10 and 31.9. White count 2.7, platelet count 86,000. ASSESSMENT: 1. Exacerbation of chronic obstructive lung disease. 2. Coronary artery disease, status post coronary artery bypass surgery. 3. Rheumatoid arthritis. 4. Systemic hypertension. 5. Declining platelet count. RECOMMENDATIONS: Continue current Plaquenil 200 mg daily, Robitussin DM 5 mL every 6 hours p.r.n., Solu-Medrol 20 mg intravenously every 12 hours, Zebeta 2.5 mg daily. Geo Whitmore MD
[2018-11-21] MEDS: Albuterol-Ipratrop 3 mg / 0.5 (3 ml) UD INH SCH ×4 (07:47→19:17)
[2018-11-21] MEDS: Acetylcysteine 20% Inhal Soln (4ml) INH SCH ×2 (07:47→19:17)
[2018-11-21] MEDS: MethylPREDNISolone 40 mg Vial IVP SCH ×2 (09:01→21:15)
[2018-11-21 10:48] LABS: BLOOD UREA NITROGEN 24 mg/dl (9-20); CALCIUM 9.2 mg/dL (8.4-10.2); GFR NON-AFRICAN AMERICAN > 60
[2018-11-21 23:42] VITALS: RESP 20
--- NOTE | 2018-11-22 00:09 | PN ---
DATE: 11/21/2018 SUBJECTIVE: The patient is seen today, 11/21/2018. He is tolerating nasal cannula. The patient was transferred from the ICU to medical floor. PHYSICAL EXAMINATION: VITAL SIGNS: Blood pressure 110/69, temperature 97.3, respiratory rate 20, and pulse 87. HEENT: Pupils equal and reactive to light. Normal-appearing mucosa of the conjunctivae, oropharynx and nasal membrane mucosa. NECK: Supple. No JVD. No carotid bruits. No lymph node. No thyromegaly. CHEST AND LUNGS: Bilateral symmetrical expansion. Good air exchange. No rales, no rhonchi. CARDIOVASCULAR SYSTEM: PMI not localized. S1, S2. No additional sounds. ABDOMEN: Normoactive bowel sounds. No tenderness. No organomegaly. No masses. EXTREMITIES: No cyanosis, no clubbing, no edema. Advanced deformities of rheumatoid arthritis. CENTRAL NERVOUS SYSTEM: Alert, awake, oriented x2. Moves all extremities equally. ASSESSMENT: 1. Hypercapnic respiratory failure. 2. Pneumonia, healthcare related. 3. Advanced rheumatoid arthritis. 4. Hypertension. 5. Coronary artery disease, status post coronary artery bypass graft. PLAN: Continue current medications and we will taper steroids. Plan to discharge home soon as he is cleared by Pulmonary and continue physical therapy for deconditioning. Michaela Wood MD
[2018-11-22] MEDS: guaiFENesin DM 100 mg-10 mg/5 ml UD PO PRN (03:41)
[2018-11-22] MEDS: Albuterol-Ipratrop 3 mg / 0.5 (3 ml) UD INH SCH ×3 (08:03→15:47)
[2018-11-22] MEDS: Acetylcysteine 20% Inhal Soln (4ml) INH SCH (08:03)
[2018-11-22] MEDS: MethylPREDNISolone 40 mg Vial IVP SCH (08:59)
--- NOTE | 2018-11-22 11:43 | CP.PCM.PN ---
Subjective - Date & Time of Evaluation Date of Evaluation: 11/22/18 Time of Evaluation: 11:38 - Subjective Subjective: Appears clinically stable at this time. Seems to have reached a better plateau on this admission than the last. Using BiPAP mask ventilation every night. Still has some cough, but much less than before. Aeration seems better in the right lower lobe than previously, but medium rales are still present. No audible wheezes or bronchial breath sounds heard. Stable respiratory status. May be discharged on nightly BiPAP with 2LPM nasal oxygen added. Continue steroids with a rapid reduction in dosing of 4-5MG every two days. Continue cough suppression with Mucinex DM Q12Hrs. Objective - Vital Signs/Intake and Output Vital Signs (last 24 hours): Temp Pulse Resp BP Pulse Ox 97.7 F 86 20 105/57 L 96 11/22/18 08:05 11/22/18 08:05 11/22/18 08:05 11/22/18 08:05 11/22/18 08:05 - Medications Medications: Current Medications Acetaminophen (Tylenol 325mg Tab) 650 mg PO Q6 PRN PRN Reason: Temperature Last Admin: 11/19/18 20:03 Dose: 650 mg Acetaminophen (Tylenol 325mg Tab) 650 mg PO Q4 PRN PRN Reason: Pain, moderate (4-7) Last Admin: 11/21/18 16:01 Dose: 650 mg Acetylcysteine (Acetylcysteine 20%) 2 ml INH RBID [facility] Last Admin: 11/22/18 08:03 Dose: 2 ml Albuterol/Ipratropium (Duoneb 3 Mg/0.5 Mg (3 Ml) Ud) 3 ml INH RQID [facility] Last Admin: 11/22/18 11:27 Dose: 3 ml Baclofen (Lioresal) 10 mg PO DAILY [facility] Last Admin: 11/22/18 08:40 Dose: 10 mg Bisoprolol Fumarate (Zebeta) 2.5 mg PO DAILY [facility] Last Admin: 11/22/18 08:39 Dose: 2.5 mg Famotidine (Pepcid) 20 mg IVP Q12 [facility] Last Admin: 11/22/18 08:38 Dose: 20 mg Guaifenesin/Dextromethorphan (Robitussin Dm) 5 ml PO Q6 PRN PRN Reason: Cough Last Admin: 11/22/18 03:41 Dose: 5 ml Home Med (Patient's Own Medication) 2 unit EXT QID PRN PRN Reason: Other Last Admin: 11/16/18 21:57 Dose: 2 unit Hydroxychloroquine Sulfate (Plaquenil) 200 mg PO DAILY [facility]; Protocol Last Admin: 11/20/18 09:04 Dose: 200 mg Methylprednisolone (Medrol) 16 mg PO DAILY [facility] Montelukast Sodium (Singulair) 10 mg PO DAILY [facility] Last Admin: 11/22/18 08:40 Dose: 10 mg Tamsulosin HCl (Flomax) 0.4 mg PO HS [facility] Last Admin: 11/21/18 21:18 Dose: 0.4 mg - Labs Labs: 11/21/18 06:05 11/21/18 10:29 PT 10.4 Seconds (9.8-13.1) 11/15/18 14:45 INR 0.9 11/15/18 14:45 APTT 35.1 Seconds (25.6-37.1) 11/15/18 14:45 Assessment and Plan (1) Chronic respiratory failure with hypoxia and hypercapnia Status: Chronic (2) Rheumatoid arthritis Status: Chronic (3) ILD (interstitial lung disease) Status: Chronic (4) Pulmonary fibrosis determined by high resolution computed tomography Status: Chronic (5) Sleep apnea, obstructive Status: Chronic
--- NOTE | 2018-11-22 12:53 | PN ---
DATE: 11/22/2018 SUBJECTIVE: The patient denies any chest pain. Shortness of breath has improved. PHYSICAL EXAMINATION: VITAL SIGNS: Blood pressure 105/57, heart rate 86, temperature 97.7, and respirations 20. HEENT: Normocephalic. CHEST: Diffuse bilateral rhonchi. HEART: S1 and S2 regular. EXTREMITIES: No edema. LABORATORY DATA: Yesterday's hemoglobin and hematocrit 9.8 and 30.6, white count 2.8, and platelet count 79,000. Yesterday's SMA-7; sodium 137, potassium 4.1, chloride 94, CO2 of 38, glucose 173, BUN 24, and creatinine 0.7. ASSESSMENT: 1. Coronary artery disease with history of coronary artery bypass surgery in the past. 2. Exacerbation of chronic obstructive lung disease. 3. Pneumonia. 4. Systemic hypertension. 5. Mild thrombocytopenia. 6. Rheumatoid arthritis. RECOMMENDATIONS: Continue Flomax 0.4 mg once a day, albuterol inhaler four times a day, Pepcid 20 mg orally twice a day, continue Plaquenil 200 mg once a day, and Zebeta at 2.5 mg daily. Geo Whitmore MD
[2018-11-22 17:16] VITALS: BP 114/65; PULSE 73; TEMP 97.8; O2SAT 99
--- NOTE | 2018-11-23 05:00 | DS ---
REASON FOR ADMISSION: This is a 73-year-old [place] male with history of multiple medical problems who was admitted for hypercapnic respiratory failure. COURSE OF HOSPITALIZATION: The patient was in [facility] when he was found to be obtunded and lethargic. The patient was brought to emergency room at [facility] where he was found to have a pCO2 of 98. The patient was started on BiPAP and admitted to intensive care unit. The patient had pulmonary consult done by Dr. Amaya. The patient was maintained on BiPAP/high-flow oxygen. The patient eventually was discharged from ICU to medical floor. The patient was maintained on nasal cannula most of the time, and he was tolerating well with O2 saturation in the low 90s. The patient is being discharged home to continue his current medications and to use BiPAP/home oxygen at home. FINAL DIAGNOSES: Hypercapnic respiratory failure; severe chronic obstructive pulmonary disease, on home oxygen; advanced rheumatoid arthritis; osteoarthritis; coronary artery disease, status post coronary artery bypass graft. Gregor MD [place]
== END 2018-11-22 18:00 | disposition home or self-care (01) | DRG 189 ==
LOC: H.ER 13:49 → H.ERHOLD 15:12 → H.ICU/CCU 20:35 → H.MEDSURG1 11-20 19:06
PROVIDERS: ADMIT Internal Medicine; ATTEND Internal Medicine
PROC: 5A09457 Assistance with Respiratory Ventilation, 24-96 Consecutive Hours, Continuous Positive Airway Pressure (ICD-10-PCS; principal; 2018-11-15)
PROC: 3E0F7GC Introduction of Other Therapeutic Substance into Respiratory Tract, Via Natural or Artificial Opening (ICD-10-PCS; 2018-11-15)
DX: J96.22 Acute and chronic respiratory failure with hypercapnia (principal); J18.9 Pneumonia, unspecified organism; J44.1 Chronic obstructive pulmonary disease with (acute) exacerbation; J98.11 Atelectasis; T17.890A Other foreign object in other parts of respiratory tract causing asphyxiation, initial encounter; D61.818 Other pancytopenia; I45.2 Bifascicular block; E87.2 Acidosis; J44.0 Chronic obstructive pulmonary disease with (acute) lower respiratory infection; J96.21 Acute and chronic respiratory failure with hypoxia; J84.10 Pulmonary fibrosis, unspecified; M05.142 Rheumatoid lung disease with rheumatoid arthritis of left hand; M05.141 Rheumatoid lung disease with rheumatoid arthritis of right hand; D63.8 Anemia in other chronic diseases classified elsewhere; D69.6 Thrombocytopenia, unspecified; G47.33 Obstructive sleep apnea (adult) (pediatric); Z99.81 Dependence on supplemental oxygen; I25.10 Atherosclerotic heart disease of native coronary artery without angina pectoris; E11.65 Type 2 diabetes mellitus with hyperglycemia; I10 Essential (primary) hypertension; F02.80 Dementia in other diseases classified elsewhere, unspecified severity, without behavioral disturbance, psychotic disturbance, mood disturbance, and anxiety; G30.9 Alzheimer's disease, unspecified; E78.5 Hyperlipidemia, unspecified; M19.90 Unspecified osteoarthritis, unspecified site; E78.00 Pure hypercholesterolemia, unspecified; Z91.19 Patient's noncompliance with other medical treatment and regimen; Z95.1 Presence of aortocoronary bypass graft; Z95.5 Presence of coronary angioplasty implant and graft; Z79.52 Long term (current) use of systemic steroids; Z87.891 Personal history of nicotine dependence; Z87.01 Personal history of pneumonia (recurrent); Z88.0 Allergy status to penicillin; Z79.4 Long term (current) use of insulin

== ENCOUNTER 2019-02-03 19:05 | Inpatient (IN) | payer MEDICARE, MEDICAID ==
[2019-02-03] MEDS ORDERED: levoFLOXacin 750 mg in D5W 150 ML BAG IVPB STA (19:22)
[2019-02-03] MEDS ORDERED: Albuterol-Ipratrop 3 mg / 0.5 (3 ml) UD INH STA (19:22)
[2019-02-03] MEDS ORDERED: levoFLOXacin 750 mg in D5W 750 MG/150 ML BAG IVPB STA (19:26)
[2019-02-03 19:42] LABS: ABG ALLEN TEST YES; ARTERIAL BLOOD GAS HCO3 32.6 mmol/L (21-28); ARTERIAL BLOOD GAS O2 SAT 98.1 % (95-98); ARTERIAL BLOOD GAS PCO2 60 mm/Hg (35-45); ARTERIAL BLOOD GAS PO2 68 mm/Hg (80-100)
[2019-02-03 19:51] LABS: BASO % 0.3 % (0.0-2.0); HEMOGLOBIN 11.3 g/dL (12.0-18.0); LYMPH # 1.4 K/uL (1.0-4.3); LYMPH % 29.4 % (20.0-40.0); MEAN CELL VOLUME 103.6 fl (80.0-94.0); MEAN CORPUSCULAR HEMOGLOBIN 32.2 pg (27.0-31.0); MEAN CORPUSCULAR HGB CONC 31.1 g/dL (33.0-37.0); MEAN PLATELET VOLUME 10.6 fl (7.2-11.7); MONO # 0.4 K/uL (0.0-0.8); NEUT # 2.9 K/uL (1.8-7.0); NEUT % 62.3 % (50.0-75.0); NRBC % 0.3 % (0.0-0.0); RBC 3.5 Mil/uL (4.40-5.90); RED CELL DISTRIBUTION WIDTH 18.9 % (11.5-14.5); WHITE BLOOD COUNT 4.6 K/uL (4.8-10.8)
[2019-02-03 19:52] LABS: INR 0.9
[2019-02-03] MEDS ORDERED: levoFLOXacin 750 mg in D5W 750 MG/150 ML BAG IVPB ONE (19:52)
[2019-02-03] MEDS ORDERED: Azithromycin 500 MG IV IVPB ONE (19:52)
[2019-02-03] MEDS ORDERED: Vancomycin 1 g Inj ONE (19:53)
[2019-02-03] MEDS ORDERED: Albuterol-Ipratrop 3 mg / 0.5 (3 ml) UD ONE (19:54)
[2019-02-03 19:55] LABS: PARTIAL THROMBOPLASTIN TIME 35.9 Seconds (25.6-37.1)
[2019-02-03 20:02] LABS: ALB/GLOB RATIO 1.2 (1.0-2.1); ALBUMIN 3.5 g/dL (3.5-5.0); ALT/SGPT 32 U/L (21-72); AST/SGOT 44 U/L (17-59); BLOOD UREA NITROGEN 16 mg/dl (9-20); CALCIUM 9.4 mg/dL (8.4-10.2); GFR NON-AFRICAN AMERICAN > 60
[2019-02-03 20:12] LABS: B-TYPE NATRIURETIC PEPTIDE 1360 pg/ml (0-900)
[2019-02-03] MEDS ORDERED: Acyclovir 500 MG in Sodium Chloride 0.9% 100 ML IVPB STA (21:04)
[2019-02-03 21:12] LABS: PROTHROMBIN TIME 9.7 Seconds (9.8-13.1)
[2019-02-03] MEDS ORDERED: Sodium Chloride 0.9% 1,000 ML IV STA (21:12)
[2019-02-03 21:20] LABS: SQUAMOUS EPITHIAL 1 /hpf (0-5); URINE BILIRUBIN NEGATIVE (NEGATIVE); URINE BLOOD NEGATIVE (NEGATIVE); URINE CLARITY CLOUDY (Clear); URINE COLOR YELLOW (YELLOW); URINE GLUCOSE (UA) NEG (NEGATIVE); URINE LEUKOCYTE ESTERASE NEG Leu/uL (Negative); URINE PROTEIN 30 mg/dL (NEGATIVE)
[2019-02-03] MEDS ORDERED: Sodium Chloride 0.9% 500 ML IV STA (21:39)
--- NOTE | 2019-02-03 21:47 | ED PDOC ---
HPI: SOB/CHF/COPD Time Seen by Provider: 02/03/19 19:10 Chief Complaint (Nursing): Shortness Of Breath Chief Complaint (Provider): Shortness Of Breath History Per: Patient History/Exam Limitations: no limitations Onset/Duration Of Symptoms: Days (4x) Current Symptoms Are (Timing): Still Present Associated Symptoms: Chills Additional Complaint(s): 73 year old male presents to the ED for an evaluation of shortness of breath onset for four days associated with clear sputum. Patient has been using his nebulizer at home with no relief and currently has chills. Patient has been here before. Otherwise, he denies hemoptysis. PMD: Dr. Wood Past Medical History Reviewed: Historical Data, Nursing Documentation, Vital Signs Vital Signs: Last Vital Signs Temp 102.1 F H 02/03/19 19:10 Pulse 99 H 02/03/19 19:10 Resp 23 02/03/19 19:27 BP 122/52 L 02/03/19 19:10 Pulse Ox 81 L 02/03/19 19:10 - Medical History PMH: Alzheimer's Disease, Arthritis (BACK), Asthma, Back Problems, Bronchitis, CAD, COPD, Dementia, Diabetes, Fractures (Hip), HTN, Hypercholesterolemia, Hyperlipidemia, Pneumonia, Rheumatoid Arthritis, Sleep Apnea Denies: CHF, Hepatitis, HIV, Hypothyroidism, Chronic Kidney Disease, Seizures, Sexually Transmitted Disease - Surgical History Surgical History: Back Surgery (T-spine), CABG (1999), Coronary Stent - Family History Family History: States: Unknown Family Hx - Social History Current smoker - smoking cessation education provided: No Alcohol: None Drugs: Denies - Immunization History Hx Tetanus Toxoid Vaccination: No Hx Influenza Vaccination: No Hx Pneumococcal Vaccination: Yes - Home Medications Home Medications: Ambulatory Orders Medication Instructions Recorded Atorvastatin [Lipitor] 20 mg PO HS 11/29/16 Montelukast [Singulair] 10 mg PO HS 11/29/16 Docusate [Colace] 100 mg PO Q12 #0 02/03/18 Hydroxychloroquine Sulfate 200 mg PO DAILY 02/03/18 [Plaquenil] Tamsulosin [Flomax] 0.4 mg PO DAILY 02/03/18 Fenofibrate Nanocrystallized 145 mg PO DAILY 09/05/18 [Tricor] Bisoprolol Fumarate 2.5 mg PO DAILY 10/10/18 Baclofen [Lioresal] 10 mg PO DAILY 10/14/18 Gabapentin [Neurontin] 300 mg PO Q12 10/14/18 Lidocaine 5% [Lidoderm] 1 ea TD DAILY PRN 10/14/18 guaiFENesin [Mucinex LA] 600 mg PO Q12 tab 10/30/18 Clopidogrel [Plavix] 75 mg PO MWF tab 11/09/18 Polyethylene Glycol/Polyvinyl 2 drop OU Q4 PRN bottle 11/09/18 [Artificial Tears] Promethazine/Codeine 5 ml PO HS PRN udc 11/09/18 [Phenergan/Codeine Oral Syrup] Albuterol/Ipratropium [Duoneb 3 3 ml INH Q6 11/15/18 mg/0.5 mg (3 ml) UD] Calcium Carbonate/Vitamin D3 1 tab PO DAILY 11/15/18 [Oysco 500-Vit D3 200 Tablet] Famotidine [Pepcid] 20 mg PO BID 11/15/18 Furosemide [Lasix] 20 mg PO DAILY 11/15/18 Ibuprofen [Motrin Tab] 400 mg PO Q6 PRN 11/15/18 Insulin Human Regular [HumuLIN R] 2 - 6 units SC BID 11/15/18 Mag Hydrox/Aluminum Hyd/Simeth 30 ml PO Q4 PRN 11/15/18 [Maalox Advanced Suspension] Magnesium Hydroxide [Milk Of 30 ml PO DAILY PRN 11/15/18 Magnesia] predniSONE [predniSONE Tab] 5 mg PO BID #60 tab 11/22/18 - Allergies Allergies/Adverse Reactions: Allergies Allergy/AdvReac Type Severity Reaction Status Date / Time Penicillins Allergy Unknown RASH Verified 10/30/18 15:52 Review of Systems ROS Statement: Except As Marked, All Systems Reviewed And Found Negative (As per HPI, otherwise negative) Constitutional: Positive for: Chills Respiratory: Positive for: Shortness of Breath, Sputum. Negative for: Hemoptysis Physical Exam - Reviewed Nursing Documentation Reviewed: Yes Vital Signs Reviewed: Yes - Physical Exam Appears: Positive for: In Acute Distress (moderate). Negative for: Well (febrile ) Skin: Negative for: Normal Color (on left lower abdomen there are three grouped vesicles on erythematous base and he doesnt know for how long he has had them ) Eye Exam: Positive for: EOMI, PERRL ENT: Positive for: Other (tacky mucus membrances) Neck: Positive for: Painless ROM, Supple Cardiovascular/Chest: Positive for: Tachycardia, Irregularly Irregular Respiratory: Positive for: Decreased Breath Sounds (bilateral; worse on on the right side with poor air movement ), Rhonchi (faint). Negative for: Wheezing Gastrointestinal/Abdominal: Positive for: Soft. Negative for: Tenderness Male Genital Exam: Positive for: inguinal tenderness (bilateral and nontender ) Back: Positive for: Normal Inspection. Negative for: Decreased ROM Extremity: Positive for: Pedal Edema (bilateral ) Lymphatic: Negative for: Adenopathy Neurological/Psych: Positive for: Awake, Alert, Normal Tone, Oriented (x3) - Laboratory Results Result Diagrams: 02/04/19 04:15 02/04/19 04:15 Lab Results: pCO2 60 mm/Hg (35-45) H 02/03/19 19: pO2 68 mm/Hg (80-100) L 02/03/19 19: HCO3 32.6 mmol/L (21-28) H 02/03/19 19: ABG pH 7.40 (7.35-7.45) 02/03/19 19: ABG Total CO2 39.0 mmol/L (22-28) H 02/03/19 19: ABG O2 Saturation 98.1 % (95-98) H 02/03/19 19: ABG Base Excess 10.0 mmol/L (-2.0-3.0) H 02/03/19 19:27 Isacc Test Yes 02/03/19 19: ABG Potassium 4.3 mmol/L (3.6-5.2) 02/03/19 19: A-a O2 Difference 142.0 mm/Hg 02/03/19 19: Sodium 136.0 mmol/L (132-148) 02/03/19 19: Chloride 102.0 mmol/L (98-107) 02/03/19: Glucose 106 mg/dL (75-110) 02/03/19 19: Lactate 1.4 mmol/L (0.7-2.1) 02/03/19 19: Vent Mode 5lnc 02/03/19 19: FiO2 40.0 % 02/03/19 19: PT 9.7 Seconds (9.8-13.1) L 02/03/19 19:35 INR 0.9 02/03/19 19:35 APTT 35.9 Seconds (25.6-37.1) 02/03/19 19:35 Troponin I 0.0300 ng/mL (0.00-0.120) 02/03/19 19:35 NT-Pro-B Natriuret Pep 1360 pg/ml (0-900) H 02/03/19 19:35 Total Bilirubin 0.6 mg/dl (0.2-1.3) 02/03/19 19:35 AST 44 U/L (17-59) 02/03/19 19:35 ALT 32 U/L (21-72) 02/03/19 19:35 Alkaline Phosphatase 42 U/L (38-126) 02/03/19 19:35 Total Protein 6.5 G/DL (6.3-8.2) 02/03/19 19:35 Albumin 3.5 g/dL (3.5-5.0) D 02/03/19 19:35 Globulin 3.0 gm/dL (2.2-3.9) 02/03/19 19:35 Albumin/Globulin Ratio 1.2 (1.0-2.1) 02/03/19 19:35 Urine Color Yellow (YELLOW) 02/03/19 20:50 Urine Clarity Cloudy (Clear) 02/03/19 20:50 Urine pH 5.0 (5.0-8.0) 02/03/19 20:50 Ur Specific [place] 1.019 (1.003-1.030) 02/03/19 20:50 Urine Protein 30 mg/dL (NEGATIVE) 02/03/19 20:50 Urine Glucose (UA) Neg mg/dL (NEGATIVE) 02/03/19 20:50 Urine Ketones Negative mg/dL (NEGATIVE) 02/03/19 20:50 Urine Blood Negative (NEGATIVE) 02/03/19 20:50 Urine Nitrate Negative (NEGATIVE) 02/03/19 20:50 Urine Bilirubin Negative (NEGATIVE) 02/03/19 20:50 Urine Urobilinogen 2.0 mg/dL (0.2-1.0) 02/03/19 20:50 Ur Leukocyte Esterase Neg Ron/uL (Negative) 02/03/19 20:50 Urine RBC (Auto) 2 /hpf (0-3) 02/03/19 20:50 Urine Microscopic WBC 2 /hpf (0-5) 02/03/19 20:50 Ur Squamous Epith Cells 1 /hpf (0-5) 02/03/19 20:50 - ECG ECG Rhythm: Positive for: Sinus Rhythm, Premature Ventricular Contraction O2 Sat by Pulse Oximetry: 81 (RA) Pulse Ox Interpretation: Normal - Radiology X-Ray Interpretation: Other (bilateral effusion v pneumonia RIGHT greater than left) - Critical Care Total Time (In Min): 30 Documented Critical Care: Time excludes all time spent performint seperately billable procedures Medical Decision Making Medical Decision Making: Time: 19:17 Impression: febrile illness Differential Diagnosis included but not limited to: pneumonia, flu, zoster, CHF, sepsis Plan: Type and screen BBK EKG B-type natriuretic peptide CMP Magnesium Phosphorous Troponin CBC w/ differential PTT Prothrombin time Chest portable [RAD] Blood culture Urine culture monitor and storage bin tender IV insertion Influenza A B Urinalysis 19:22 Glucose, POC ABG shock Albuterol 9ml Levaquin 750mg Normal saline 1000 mls/hr SOLU-Medrol 125mg Tamiflu 75mg Toradol 15mg Acetaminophen 975mg Vancomycin Acyclovir Zithromax 500mg O2 via nasal cannula Peak flow pre/post 21:31 Isolation type Admit to hospitalist Upon review of previous chart, patient has had to be placed on BIPAP for severe respiratory distress in the past. 21:[address] Wood, PMD for admission and discussed with Dr. Yeh, the hospitalist for ICU placement given pneumonia and effusions and episodes of low BP in ER and high risk factors for respiratory failure. Scribe Attestation: Documented by Senia Benitez, acting as a scribe for Dunia García MD. Provider Scribe Attestation: All medical record entries made by the Scribe were at my direction and personally dictated by me. I have reviewed the chart and agree that the record accurately reflects my personal performance of the history, physical exam, medical decision making, and the department course for this patient. I have also personally directed, reviewed, and agree with the discharge instructions and disposition. Disposition - Clinical Impression Clinical Impression: Acute on chronic respiratory failure with hypoxemia, Fever, Zoster, HCAP (healthcare-associated pneumonia), COPD exacerbation Counseled Patient/Family Regarding: Studies Performed, Diagnosis - Disposition Disposition Time: 21:00 Condition: CRITICAL - Pt Status Changed To: Hospital Disposition Of: Inpatient - Admit Certification Admit to Inpatient:: After my assessment, the patient will require hospitalization for at least two midnights. This is because of the severity of symptoms shown, intensity of services needed, and/or the medical risk in this patient being treated as an outpatient. - POA Present On Arrival: None
--- NOTE | 2019-02-03 22:11 | CP.PCM.CON ---
History of Present Illness - History of Present Illness History of Present Illness: PMD: Dr. Wood Reason for Consult: Critical care management Chief Complaint: Shortness of Breath The patient was seen and examined in the ED HPI: The hx was obtained from the patient and after review of the Radiological, laboratory and medical records. This is a 73 years old male with hx of dementia, Rheumatoid Arthritis, Pneumonia and Pulmonary Fibrosis on home oxygen. He comes with 4 days of coughing with clear sputum, worsening SOB and fever. He had been using his home medication without relief. No chest pain nor palpitation, no nausea, vomits nor Diarrhea. He does have frequency with small volume of urine. He has developed on the left abdomen an erythematous rash with the center having clusters of vesicles. PMH: Alzheimer's Dementyia; RA; CAD; DM insulin requiring; Hip fracture; HTN; HLD; Sleep Apnea; Pneumonia; Pulmonary Fibrosis PSH: Back surgery(T-Spine); CABG; Coronary stent; SH: Smokes Cigars; Former smoker of cigarettes, no illegal drug use FH: States: no known surgical hx Allergies: PCN Medication: Reviewed Review of Systems - Review of Systems Systems not reviewed;Unavailable: Dementia Review of Systems: Review of systems is limited because of the patient's dementia Past Patient History - Infectious Disease Hx of Infectious Diseases: None - Past Medical History & Family History Past Medical History?: Yes - Past Social History Smoking Status: Former Smoker Chewing Tobacco Use: No Cigar Use: No Alcohol: None Drugs: Denies - CARDIAC Hx Congestive Heart Failure: No Hx Hypercholesterolemia: Yes Hx Hypertension: Yes - PULMONARY Hx Asthma: Yes Hx Bronchitis: Yes Hx Chronic Obstructive Pulmonary Disease (COPD): Yes Hx Pneumonia: Yes Hx Sleep Apnea: Yes - NEUROLOGICAL Hx Alzheimer's Disease: Yes Hx Dementia: Yes Hx Seizures: No - HEENT Hx HEENT Problems: No - RENAL Hx Chronic Kidney Disease: No - ENDOCRINE/METABOLIC Hx Hypothyroidism: No - HEMATOLOGICAL/ONCOLOGICAL Hx Human Immunodeficiency Virus (HIV): No - INTEGUMENTARY Hx Dermatological Problems: No - MUSCULOSKELETAL/RHEUMATOLOGICAL Hx Arthritis: Yes (BACK) Hx Fractures: Yes (Hip) Hx Rheumatoid Arthritis: Yes - GASTROINTESTINAL Hx Gastrointestinal Disorders: No - GENITOURINARY/GYNECOLOGICAL Hx Sexually Transmitted Disorders: No - PSYCHIATRIC Hx Psychophysiologic Disorder: No Hx Substance Use: No - SURGICAL HISTORY Hx Coronary Artery Bypass Graft: Yes (1999) Hx Coronary Stent: Yes - ANESTHESIA Hx Anesthesia: Yes Hx Anesthesia Reactions: No Hx Malignant Hyperthermia: No Meds Allergies/Adverse Reactions: Allergies Allergy/AdvReac Type Severity Reaction Status Date / Time Penicillins Allergy Unknown RASH Verified 10/30/18 15:52 Physical Exam - Head Exam Head Exam: ATRAUMATIC, NORMAL INSPECTION, NORMOCEPHALIC - Eye Exam Eye Exam: EOMI, Normal appearance Pupil Exam: NORMAL ACCOMODATION, PERRL - ENT Exam ENT Exam: Mucous Membranes Dry, Normal Exam, Normal External Ear Exam - Neck Exam Neck exam: Positive for: Full Rom, Normal Inspection. Negative for: Meningismus, Tenderness - Respiratory Exam Respiratory Exam: Clear to Auscultation Bilateral. absent: Rales, Rhonchi, Wheezes - Cardiovascular Exam Cardiovascular Exam: REGULAR RHYTHM, RRR, +S1, +S2. absent: Gallop, Rubs - GI/Abdominal Exam GI & Abdominal Exam: Normal Bowel Sounds, Soft. absent: Mass, Organomegaly, Tenderness - Rectal Exam Rectal Exam: Deferred - Extremities Exam Extremities exam: Positive for: full ROM, normal inspection. Negative for: calf tenderness - Back Exam Back exam: NORMAL INSPECTION. absent: CVA tenderness (L), CVA tenderness (R) - Neurological Exam Neurological exam: Alert, CN II-XII Intact, Oriented x3 - Psychiatric Exam Psychiatric exam: Normal Affect, Normal Mood - Skin Skin Exam: Dry, Intact, Normal Color, Warm Results - Vital Signs Recent Vital Signs: Last Vital Signs Temp 102.1 F H 02/03/19 19:10 Pulse 99 H 02/03/19 19:10 Resp 23 02/03/19 19:27 BP 122/52 L 02/03/19 19:10 Pulse Ox 81 L 02/03/19 22:05 - Labs Result Diagrams: 02/04/19 04:15 02/04/19 04:15 Labs: Laboratory Results - last 24 hr 02/03/19 02/03/19 02/03/19 19:27 19:34 19:35 WBC 4.6 L D RBC 3.50 L Hgb 11.3 L Hct 36.2 MCV 103.6 H MCH 32.2 H MCHC 31.1 L RDW 18.9 H Plt Count 93 L MPV 10.6 Neut % (Auto) 62.3 Lymph % (Auto) 29.4 Rogers % (Auto) 8.0 Eos % (Auto) 0.0 Baso % (Auto) 0.3 Neut # (Auto) 2.9 Lymph # (Auto) 1.4 Rogers # (Auto) 0.4 Eos # (Auto) 0.0 Baso # (Auto) 0.0 PT INR APTT pCO2 60 H pO2 68 L HCO3 32.6 H ABG pH 7.40 ABG Total CO2 39.0 H ABG O2 Saturation 98.1 H ABG Base Excess 10.0 H Isacc Test Yes ABG Potassium 4.3 A-a O2 Difference 142.0 Sodium 136.0 Chloride 102.0 Glucose 106 Lactate 1.4 Vent Mode 5lnc FiO2 40.0 Potassium Carbon Dioxide Anion Gap BUN Creatinine Est GFR ( Amer) Est GFR (Non-Af Amer) POC Glucose (mg/dL) 108 Random Glucose Calcium Phosphorus Magnesium Total Bilirubin AST ALT Alkaline Phosphatase Troponin I NT-Pro-B Natriuret Pep Total Protein Albumin Globulin Albumin/Globulin Ratio Arterial Blood Potassium 4.3 Urine Color Urine Clarity Urine pH Ur Specific [place] Urine Protein Urine Glucose (UA) Urine Ketones Urine Blood Urine Nitrate Urine Bilirubin Urine Urobilinogen Ur Leukocyte Esterase Urine RBC (Auto) Urine Microscopic WBC Ur Squamous Epith Cells Influenza Typ A,B (EIA) Blood Type Antibody Screen BBK History Checked 02/03/19 02/03/19 02/03/19 19:35 19:35 19:35 WBC RBC Hgb Hct MCV MCH MCHC RDW Plt Count MPV Neut % (Auto) Lymph % (Auto) Rogers % (Auto) Eos % (Auto) Baso % (Auto) Neut # (Auto) Lymph # (Auto) Rogers # (Auto) Eos # (Auto) Baso # (Auto) PT 9.7 L INR 0.9 APTT 35.9 pCO2 pO2 HCO3 ABG pH ABG Total CO2 ABG O2 Saturation ABG Base Excess Isacc Test ABG Potassium A-a O2 Difference Sodium 138 Chloride 96 L Glucose Lactate Vent Mode FiO2 Potassium 4.8 Carbon Dioxide 35 H Anion Gap 12 BUN 16 Creatinine 0.9 Est GFR ( Amer) > 60 Est GFR (Non-Af Amer) > 60 POC Glucose (mg/dL) Random Glucose 95 Calcium 9.4 Phosphorus 3.5 Magnesium 1.8 Total Bilirubin 0.6 AST 44 ALT 32 Alkaline Phosphatase 42 Troponin I 0.0300 NT-Pro-B Natriuret Pep 1360 H Total Protein 6.5 Albumin 3.5 D Globulin 3.0 Albumin/Globulin Ratio 1.2 Arterial Blood Potassium Urine Color Urine Clarity Urine pH Ur Specific [place] Urine Protein Urine Glucose (UA) Urine Ketones Urine Blood Urine Nitrate Urine Bilirubin Urine Urobilinogen Ur Leukocyte Esterase Urine RBC (Auto) Urine Microscopic WBC Ur Squamous Epith Cells Influenza Typ A,B (EIA) Negative for flu a/b Blood Type Antibody Screen BBK History Checked 02/03/19 02/03/19 19:35 20:50 WBC RBC Hgb Hct MCV MCH MCHC RDW Plt Count MPV Neut % (Auto) Lymph % (Auto) Rogers % (Auto) Eos % (Auto) Baso % (Auto) Neut # (Auto) Lymph # (Auto) Rogers # (Auto) Eos # (Auto) Baso # (Auto) PT INR APTT pCO2 pO2 HCO3 ABG pH ABG Total CO2 ABG O2 Saturation ABG Base Excess Isacc Test ABG Potassium A-a O2 Difference Sodium Chloride Glucose Lactate Vent Mode FiO2 Potassium Carbon Dioxide Anion Gap BUN Creatinine Est GFR ( Amer) Est GFR (Non-Af Amer) POC Glucose (mg/dL) Random Glucose Calcium Phosphorus Magnesium Total Bilirubin AST ALT Alkaline Phosphatase Troponin I NT-Pro-B Natriuret Pep Total Protein Albumin Globulin Albumin/Globulin Ratio Arterial Blood Potassium Urine Color Yellow Urine Clarity Cloudy Urine pH 5.0 Ur Specific [place] 1.019 Urine Protein 30 Urine Glucose (UA) Neg Urine Ketones Negative Urine Blood Negative Urine Nitrate Negative Urine Bilirubin Negative Urine Urobilinogen 2.0 Ur Leukocyte Esterase Neg Urine RBC (Auto) 2 Urine Microscopic WBC 2 Ur Squamous Epith Cells 1 Influenza Typ A,B (EIA) Blood Type A POSITIVE Antibody Screen Negative BBK History Checked Patient has bt - Imaging and Cardiology Chest x-ray Status: Image reviewed by me Additional comment: Right lower lobe infiltrate. Left base atelectasis Assessment & Plan - Assessment and Plan (Free Text) Assessment: #.Community Acquired pneumonia #. Sepsis #. Hypercarbic, Hypoxic respiratory failure #. Pulmonary fibrosis #.Herpes Simplex on abdomen #. Pancytopenia #. Obstructive Sleep Apnea Plan: 73 years old male with hx of dementia, Rheumatoid Arthritis, Pneumonia and Pulmonary Fibrosis on home oxygen, comes with 4 days of coughing, SOB and fever. He had been using his home medication without relief. He has developed on the left abdomen an erythematous rash with the center having clusters of vesicles. #.Community Acquired pneumonia - Consult Pulmonary Dr Amaya - Cefepime - Azithromycin - vancomycin - Sputum culture #. Sepsis with fever, Tachycardia, Respiration >20 and the Pneumonia - Chest X Ray shows the worsening of the RLL infiltrate and persistence of the LLL atelectasis - Follow blood and Urine Culture - Sputum culture - Antibiotics #. Hypercarbic, Hypoxic respiratory failure - Consult Pulmonary -Bronchodilators - BIPAP #. Pulmonary fibrosis - Bronchodilators - Oxygen #.Herpes Simplex on abdomen - Acyclovir cream - Acyclovir 400mg po TID #. Pancytopenia - Will need Hematology consult #. Obstructive Sleep Apnea - BIPAP in this case at night #. BPH. Pte refers frequent small urination with normal Urinalysis - Flomax - May need Urology #. DVT prophylaxis with Lovenox #. Code Status: Unknown Full Code Pasha Yeh MD - Date & Time Date: 02/03/19 Time: 22:11
[2019-02-03] MEDS ORDERED: Albuterol-Ipratrop 3 mg / 0.5 (3 ml) UD INH SCH (23:00)
[2019-02-03] MEDS ORDERED: Sodium Chloride 3% for Inhalation 4 ML VIAL.NEB IH PRN (23:35)
[2019-02-04] MEDS: Sodium Chloride 0.9% 1,000 ML IV SCH ×3 (00:16→17:07)
[2019-02-04 00:49] VITALS: BMI 22.4
[2019-02-04] MEDS ORDERED: methylPREDNISolone 30 MG in Sodium Chloride 0.9% 50 ML IVPB SCH (01:00)
[2019-02-04] MEDS ORDERED: Sodium Chloride 0.9% 1,000 ML IV SCH (01:30)
[2019-02-04] MEDS: MethylPREDNISolone 40 mg Vial IVP SCH ×3 (01:45→17:08)
[2019-02-04 04:53] LABS: ABG ALLEN TEST YES; ARTERIAL BLOOD GAS HCO3 27.3 mmol/L (21-28); ARTERIAL BLOOD GAS O2 SAT 89.3 % (95-98); ARTERIAL BLOOD GAS PCO2 61 mm/Hg (35-45); ARTERIAL BLOOD GAS PH 7.32 (7.35-7.45); ARTERIAL BLOOD GAS PO2 49 mm/Hg (80-100); ARTERIAL BLOOD GAS TCO2 33.3 mmol/L (22-28)
[2019-02-04 05:25] LABS: BASO % 0.1 % (0.0-2.0); EOS % 0.1 % (0.0-4.0); HEMOGLOBIN 9.1 g/dL (12.0-18.0); LYMPH # 0.2 K/uL (1.0-4.3); LYMPH % 7.3 % (20.0-40.0); MEAN CELL VOLUME 105.5 fl (80.0-94.0); MEAN CORPUSCULAR HEMOGLOBIN 32.5 pg (27.0-31.0); MEAN CORPUSCULAR HGB CONC 30.8 g/dL (33.0-37.0); MEAN PLATELET VOLUME 10.7 fl (7.2-11.7); MONO # 0.1 K/uL (0.0-0.8); MONO % 4.3 % (0.0-10.0); NEUT # 2.9 K/uL (1.8-7.0); NEUT % 88.2 % (50.0-75.0); NRBC % 0.1 % (0.0-0.0); RBC 2.81 Mil/uL (4.40-5.90); WHITE BLOOD COUNT 3.3 K/uL (4.8-10.8)
[2019-02-04 05:31] LABS: PLATELET COUNT 66 K/uL (130-400)
[2019-02-04 05:36] LABS: BLOOD UREA NITROGEN 15 mg/dl (9-20); GFR NON-AFRICAN AMERICAN > 60
[2019-02-04] MEDS: Albuterol-Ipratrop 3 mg / 0.5 (3 ml) UD INH SCH ×4 (07:20→19:14)
[2019-02-04 07:47] LABS: BANDS 2 % (0-2); LYMPHOCYTE 10 % (20-50); METAMYELOCYTE 2 % (0-0); MONOCYTE 3 % (0-10); NEUTROPHIL 82 % (42-75); PLATELET ESTIMATE DECREASED (NORMAL); REACTIVE LYMPHOCYTES 1 % (0-0); TOTAL CELLS COUNTED 100
[2019-02-04 07:48] LABS: OVALOCYTES SLIGHT
[2019-02-04 07:49] LABS: LARGE PLATELETS PRESENT
[2019-02-04 07:50] LABS: ANISOCYTOSIS SLIGHT
[2019-02-04 07:51] LABS: HYPOCHROMIC SLIGHT
--- NOTE | 2019-02-04 08:22 | CP.CCUPN ---
CCU Subjective - Physician Review Subjective (Free Text): Awake and appropriately responsive. Placed onto BiPAP overnight 16/ at 40% and generating TV only 160 ml at best with air leak noted. Does not appear distressed. He is afebrile now, no recurrent fever spikes from t101.2F on admission, SBP in 90-100s, HR 90s, RR 19, SPO2 99% on 40% oxygen via BiPAP. ROS: No other pertinent negs or positives on 10+ system review PMSFH: All other Nursing and physician documentation reviewed to date; no new pertinent info noted relevant to current medical problems. Allergies: Penicillin Home meds: Duoneb, Montelukast Lipitor, Lioreseal, Bisoprolol, Calcium supplement, Colace, Epogen, Pepcid, Fenofibrate, Lasix, Gabapentin, Plaquenil, Motrin, RISS Humulin, Lidocaine 5% patch, Flomax, Plavix, Prometh/Codeine, heparin. EXAM- HEENT: no icterus, no gaze preference NECK: No JVD visible, supple, carotids equal upstroke bilat/no bruit CHEST: decreased BS at the bases, especially R base; no wheezes audible bilaterally. Large well healed scar across left anterior chest and midline. Another T spine scar over the mid-upper back. HEART: regular, distant, S1S2, no rubs or murmurs noted ABD: soft and obese, nontender, no guarding, no organomegaly, BS hypoactive. EXT: no leg edema, no calf tenderness or palpable cords, distal pulses intact and symmetrical. Bilateral arthritic hand deformities. NEURO: no gross focal deficits. SKIN: no rashes, warm and dry LABS: WBC= 3.3 HGB= 9.1 PLTs= 66K AB.32/61/49 on 40% O2 via BiPAP Na= 139 K= 4.9 CL= 104 HCO3= 31 BUN/Cr= 15/0.8 BS= 106 CXR: (my interp)- R effusion and / or R basilar infiltrate / lobar atelectasis; atelectasis Left base. IMPRESSION / MAJOR PROBLEMS NOW: 1. Acute on chronic Hypercarbic Resp Failure 2 RLL effusion / Pneumonia; Atelectasis and Mucous plugging 2. Steroid-Dependent Rheumatoid Arthritis 3. Chronic Thrombocytopenia 4. h/o Thoracic Spinal fusion surgery PLAN: 1. May need further adjustment of BiPAP settings and mask to allow for improvement in TVs. MV support reserved if hypercarbia worsens or coincident with any deterioration in mental status. 2. Duonebs increased to Q4H, started on IV steroids. 3. Empiric Abx coverage. 4. Consider CT Chest. 5. Check for any Advance Directives, presently full Code support.
[2019-02-04] MEDS ORDERED: Enoxaparin 40 mg Syringe SC SCH (09:00)
[2019-02-04] MEDS: Acyclovir 5% OINT 15 APPLIC/15 GM EXT SCH ×4 (09:13→21:11)
[2019-02-04] MEDS: Cefepime 2 GM in Sodium Chloride 0.9% 100 ML IVPB SCH ×2 (09:22→20:05)
[2019-02-04] MEDS: guaiFENesin 600 mg ER Tab PO SCH ×2 (09:23→20:06)
[2019-02-04] MEDS: Azithromycin 500 MG in Sodium Chloride 0.9% 250 ML IVPB SCH (09:26)
[2019-02-04] MEDS ORDERED: Influenza Vaccine 60 MCG/0.5 ML SYR (3 yr & up) IM ONE (09:46)
[2019-02-04] MEDS: Insulin Regular 100 units/ml SC SCH ×3 (11:30→21:07)
--- NOTE | 2019-02-04 13:56 | RAD ---
Date of service: 02/03/2019 HISTORY: sob fever COMPARISON: Comparison chest 11/19/2018. TECHNIQUE: 1 view obtained. FINDINGS: LUNGS: Bibasilar atelectasis and/or infiltrates with bilateral effusions. Slightly improved pulmonary venous congestive changes PLEURA: As above. No pneumothorax apparent. CARDIOVASCULAR: Aortic atherosclerotic calcification present. Heart remains enlarged. Apparent CABG surgery. OSSEOUS STRUCTURES: Redemonstrated are in situ bilateral posterior fixation rods which are attached to several upper-mid thoracic segments. VISUALIZED UPPER ABDOMEN: Normal. OTHER FINDINGS: None. IMPRESSION: Bilateral lower lobe atelectasis and or infiltrates and bilateral effusions.. Slightly improved pulmonary venous congestive changes.
[2019-02-04] MEDS: Cefepime 1 GM in Sodium Chloride 0.9% 100 ML IVPB SCH (22:36)
[2019-02-05] MEDS: MethylPREDNISolone 40 mg Vial IVP SCH ×3 (00:53→16:38)
[2019-02-05] MEDS: Albuterol-Ipratrop 3 mg / 0.5 (3 ml) UD INH SCH ×7 (01:04→23:29)
[2019-02-05 04:51] LABS: ABG ALLEN TEST YES; ARTERIAL BLOOD GAS HCO3 28.2 mmol/L (21-28); ARTERIAL BLOOD GAS HEMOGLOBIN 8.1 g/dL (11.7-17.4); ARTERIAL BLOOD GAS O2 CAPACITY 11.4 mL/dL (16-24); ARTERIAL BLOOD GAS O2 CONTENT 11.4 ML/dL (15-23); ARTERIAL BLOOD GAS O2 SAT 100.3 % (95-98); ARTERIAL BLOOD GAS PCO2 55 mm/Hg (35-45); ARTERIAL BLOOD GAS PH 7.35 (7.35-7.45); ARTERIAL BLOOD GAS PO2 100 mm/Hg (80-100); ARTERIAL BLOOD GAS TCO2 32.1 mmol/L (22-28)
[2019-02-05 04:59] LABS: MEAN CELL VOLUME 103.2 fl (80.0-94.0); RBC 2.5 Mil/uL (4.40-5.90); WHITE BLOOD COUNT 2.4 K/uL (4.8-10.8)
[2019-02-05 05:10] LABS: ALB/GLOB RATIO 0.9 (1.0-2.1); ALBUMIN 2.3 g/dL (3.5-5.0); ALT/SGPT 35 U/L (21-72); AST/SGOT 32 U/L (17-59); BLOOD UREA NITROGEN 19 mg/dl (9-20); CALCIUM 8.1 mg/dL (8.4-10.2); GFR NON-AFRICAN AMERICAN > 60
--- NOTE | 2019-02-05 05:15 | HP ---
HISTORY OF PRESENT ILLNESS: This is a 73-year-old be [place] male with history of multiple medical problems including advanced rheumatoid arthritis, chronic obstructive lung disease, on home oxygen therapy, presented to emergency room for shortness of breath, cough and fever of 102.1. Symptoms were not responding to outpatient treatment. The patient was evaluated in the emergency room. He also had a chest x-ray that showed bilateral lower lobe atelectasis and/or infiltrates and bilateral effusion. The patient also was found to have erythematous vesicular rashes on the left lower abdominal quadrant. The patient was admitted for further management after he was started on BiPAP to intensive care unit. Other review of system is the patient is wheelchair bound and he has home oxygen therapy. ALLERGIES: POSITIVE FOR PENICILLIN. MEDICATIONS: Medications were reviewed as per MAR and ordered. SOCIAL HISTORY: Ex-smoker. No EtOH or substance abuse. FAMILY HISTORY: Noncontributory. PAST MEDICAL HISTORY: COPD, hypertension, coronary artery disease, status post coronary artery bypass graft, osteoarthritis, advanced rheumatoid arthritis. PHYSICAL EXAMINATION: GENERAL: The patient is in bed, on oxygen by nasal cannula with mild shortness of breath. VITAL SIGNS: Blood pressure 99/46, temperature 98.7, respiratory rate 30, and pulse is 71. HEENT: Pupils equal, reactive to light. Normal-appearing mucosa of the conjunctivae, oropharynx and nasal membrane mucosa. NECK: Supple. No JVD. No carotid bruit. No lymph node. No thyromegaly. CHEST AND LUNGS: Bilateral symmetrical expansion. Bilateral decreased air entry in both lower lung amos. CARDIOVASCULAR SYSTEM: PMI not localized. S1 and S2. No additional sounds. ABDOMEN: Normoactive bowel sounds. No tenderness. No organomegaly. No masses. The patient has erythematous vesicular rashes on the left lower abdominal quadrant. EXTREMITIES: No cyanosis, no clubbing, no edema. CENTRAL NERVOUS SYSTEM: Alert, awake, oriented x2. No neurological deficit could be appreciated. ASSESSMENT: Bilateral lower lobe pneumonia, herpes zoster, chronic obstructive pulmonary disease, on home oxygen, hypertension, coronary artery disease. PLAN: IV steroids and antibiotics, both cefepime and azithromycin. Start acyclovir. Pulmonary consult. Michaela Wood MD [facility] # [id number]
[2019-02-05] MEDS: Insulin Regular 100 units/ml SC SCH ×4 (06:32→22:07)
--- NOTE | 2019-02-05 07:53 | CP.CCUPN ---
CCU Subjective - Physician Review Subjective (Free Text): 02/05/19 16:09 The patient was Seen/interviewed and examined by me at the bedside during ICU round, Medical records reviewed and Management issues were discussed and formulated with the house staff. Events reviewed 73 years old Male with past medical history of HTN, Hypercholesterolemia, Hyperlipidemia, Arthritis (BACK), Asthma, Back Problems, Bronchitis, CAD, COPD, Dementia, Diabetes, Fractures (Hip), Pneumonia, Rheumatoid Arthritis, Sleep Apnea and Alzheimer's Disease Who presents to the ED for an evaluation of shortness of breath onset for four days associated with clear sputum Chest X Ray shows the worsening of the RLL infiltrate and persistence of the LLL atelectasis Patient Admitted with Sepsis from Community Acquired pneumonia with Pleural effusion Doing better today Patient is comfortable, in no apparent distress Less SOB, No chest pain Afebrile overnight Last 24H I&O 3540/1110 NSR on the monitor Patient on Zovirax and Airborne precautions for (+) Herpes Zoster. CCU Objective - Vital Signs / Intake & Output Vital Signs (Last 4 hours): Vital Signs Temp Pulse Resp BP Pulse Ox 02/05/19 06:10 71 02/05/19 06:00 97.7 F 73 16 101/54 L 100 02/05/19 04:00 68 22 106/67 100 Intake and Output (Last 8hrs): Intake & Output 02/04/19 02/05/19 02/05/19 22:59 06:59 14:59 Intake Total 2740 800 Output Total 660 450 Balance 2080 350 Weight 150 lb 3.2 oz Intake: IV 1400 700 Intake, Piggyback 700 100 Oral 640 Output: Urine 660 450 Urine, Voided 660 450 Other: # Voids Urine, Voided 3 # Bowel Movements 1 - Physical Exam Physical Exam Limitations: Positive for: Altered Mental Status Head: Positive for: Atraumatic, Normocephalic Pupils: Positive for: PERRL Extroacular Muscles: Positive for: EOMI Conjunctiva: Positive for: Normal. Negative for: Injected, Icteric Mouth: Positive for: Moist Mucous Membranes Nose (Internal): Positive for: Normal Inspection Neck: Positive for: Normal Range of Motion, Trachea Midline. Negative for: Meningeal Signs, MIDLINE TENDERNESS, Paraspinal Tenderness, JVD, Lymphadenopathy, Bruit, Other Respiratory/Chest: Positive for: Good Air Exchange, Decreased Breath Sounds. Negative for: Respiratory Distress, Accessory Muscle Use, Wheezes Cardiovascular: Positive for: Regular Rate and Rhythm, Normal S1, S2, Peripheal Pulses Present. Negative for: Murmurs, Tachycardic, Bradycardic Abdomen: Positive for: Normal Bowel Sounds. Negative for: Tenderness, Distention Psychiatric: Positive for: Alert - Medications Active Medications: Active Medications Generic Name Dose Route Start Last Admin Trade Name Freq PRN Reason Stop Dose Admin Acetaminophen 650 mg 02/03/19 23:27 Tylenol 325mg Tab PO Q6 PRN Fever >100.4 F Acetaminophen 650 mg 02/03/19 23:28 02/04/19 20:08 Tylenol 325mg Tab PO 650 mg Q6 PRN Administration Pain, Mild (1-3) Acyclovir 1 applic 02/04/19 09:00 02/04/19 21:11 Zovirax 5% Oint EXT 1 applic QID ARTEMIO Administration Albuterol/Ipratropium 3 ml 02/04/19 08:00 02/05/19 07:44 Duoneb 3 Mg/0.5 Mg (3 Ml) Ud INH 3 ml RQ4 ARTEMIO Administration Atorvastatin Calcium 20 mg 02/04/19 22:00 02/04/19 21:10 Lipitor PO 20 mg HS ARTEMIO Administration Baclofen 10 mg 02/04/19 09:00 02/04/19 09:13 Lioresal PO 10 mg DAILY ARTEMIO Administration Docusate Sodium 100 mg 02/04/19 09:00 02/04/19 20:03 Colace PO 100 mg Q12 ARTEMIO Administration Enoxaparin Sodium 40 mg 02/04/19 09:00 Lovenox SC DAILY ARTEMIO Protocol Famotidine 20 mg 02/04/19 09:00 02/04/19 17:06 Pepcid PO 20 mg BID ARTEMIO Administration Guaifenesin 600 mg 02/04/19 09:00 02/04/19 20:06 Mucinex La PO 600 mg Q12 ARTEIMO Administration Hydroxychloroquine Sulfate 200 mg 02/04/19 09:00 02/04/19 09:23 Plaquenil PO 200 mg DAILY ARTEMIO Administration Protocol Azithromycin 500 mg/ Sodium 250 mls @ 250 mls/hr 02/04/19 09:00 02/04/19 09:26 Chloride IVPB 250 mls/hr DAILY ARTEMIO Administration Protocol Vancomycin HCl 1 gm/ Sodium 250 mls @ 166.667 mls/hr 02/04/19 09:00 02/04/19 20:07 Chloride IVPB 166.667 mls/hr Q12 ARTEMIO Administration Protocol Cefepime HCl 1 gm/ Sodium 100 mls @ 100 mls/hr 02/04/19 22:15 02/04/19 22:36 Chloride IVPB Not Given Q12H ARTEMIO Protocol Acyclovir 600 mg/ Sodium 100 mls @ 100 mls/hr 02/05/19 01:00 02/05/19 01:11 Chloride IVPB 100 mls/hr Q8 ARTEMIO Administration Protocol Insulin Human Regular 0 units 02/04/19 07:30 02/05/19 06:32 Humulin R SC Not Given ACHS [facility] Protocol Lactulose 20 gm 02/04/19 13:54 Enulose PO DAILY PRN Constipation Methylprednisolone 30 mg 02/04/19 01:00 02/05/19 00:53 Solu-Medrol IVP 30 mg Q8 ARTEMIO Administration Montelukast Sodium 10 mg 02/04/19 22:00 02/04/19 21:10 Singulair PO 10 mg HS ARTEMIO Administration Tamsulosin HCl 0.4 mg 02/04/19 21:00 02/04/19 20:04 Flomax PO 0.4 mg Q12 ARTEMIO Administration Temazepam 15 mg 02/05/19 00:03 Restoril PO HS PRN Insomnia - Patient Studies Lab Studies: Microbiology Studies 02/03/19 19:35 Blood Culture - Preliminary Blood-Venous NO GROWTH AFTER 24 HOURS 02/03/19 19:35 Blood Culture - Preliminary Blood-Venous NO GROWTH AFTER 24 HOURS Lab Studies 02/05/19 02/05/19 02/05/19 Range/Units 04:50 04:50 04:36 WBC 2.4 L (4.8-10.8) K/uL RBC 2.50 L (4.40-5.90) Mil/uL Hgb 8.0 L (12.0-18.0) g/dL Hct 25.8 L (35.0-51.0) % MCV 103.2 H D (80.0-94.0) fl MCH 32.0 H (27.0-31.0) pg MCHC 31.0 L (33.0-37.0) g/dL RDW 19.0 H (11.5-14.5) % Plt Count 66 L (130-400) K/uL Neutrophils % (Manual) (42-75) % Band Neutrophils % (0-2) % Lymphocytes % (Manual) (20-50) % Reactive Lymphs % (0-0) % Monocytes % (Manual) (0-10) % Metamyelocytes % (0-0) % Platelet Estimate (NORMAL) Large Platelets Hypochromasia (manual) Anisocytosis (manual) Macrocytosis (manual) Ovalocytes pCO2 (35-45) mm/Hg pO2 (80-100) mm/Hg HCO3 (21-28) mmol/L ABG pH (7.35-7.45) ABG Total CO2 (22-28) mmol/L ABG O2 Saturation (95-98) % ABG O2 Content (15-23) ML/dL ABG Base Excess (-2.0-3.0) mmol/L ABG Hemoglobin (11.7-17.4) g/dL ABG Carboxyhemoglobin (0.5-1.5) % POC ABG HHb (Measured) (0.0-5.0) % ABG Methemoglobin (0.0-3.0) % ABG O2 Capacity (16-24) mL/dL Isacc Test A-a O2 Difference mm/Hg Hgb O2 Saturation (95.0-98.0) % Vent Mode Mechanical Rate FiO2 % Inspiratory BiPAP Expiratory BiPAP Sodium 138 (132-148) mmol/l Potassium 4.1 (3.6-5.0) MMOL/L Chloride 106 (98-107) mmol/L Carbon Dioxide 31 H (22-30) mmol/L Anion Gap 5 L (10-20) BUN 19 (9-20) mg/dl Creatinine 0.7 L (0.8-1.5) mg/dl Est GFR ( Amer) > 60 Est GFR (Non-Af Amer) > 60 POC Glucose (mg/dL) 121 H (65-110) mg/dL Random Glucose 94 (75-110) mg/dL Calcium 8.1 L (8.4-10.2) mg/dL Total Bilirubin 0.4 (0.2-1.3) mg/dl AST 32 (17-59) U/L ALT 35 (21-72) U/L Alkaline Phosphatase 28 L D (38-126) U/L Total Protein 4.8 L (6.3-8.2) G/DL Albumin 2.3 L D (3.5-5.0) g/dL Globulin 2.5 (2.2-3.9) gm/dL Albumin/Globulin Ratio 0.9 L (1.0-2.1) Procalcitonin (0.19-0.49) NG/ML 02/05/19 02/04/19 02/04/19 Range/Units 04:33 21:03 16:52 WBC (4.8-10.8) K/uL RBC (4.40-5.90) Mil/uL Hgb (12.0-18.0) g/dL Hct (35.0-51.0) % MCV (80.0-94.0) fl MCH (27.0-31.0) pg MCHC (33.0-37.0) g/dL RDW (11.5-14.5) % Plt Count (130-400) K/uL Neutrophils % (Manual) (42-75) % Band Neutrophils % (0-2) % Lymphocytes % (Manual) (20-50) % Reactive Lymphs % (0-0) % Monocytes % (Manual) (0-10) % Metamyelocytes % (0-0) % Platelet Estimate (NORMAL) Large Platelets Hypochromasia (manual) Anisocytosis (manual) Macrocytosis (manual) Ovalocytes pCO2 55 H (35-45) mm/Hg pO2 100 (80-100) mm/Hg HCO3 28.2 H (21-28) mmol/L ABG pH 7.35 (7.35-7.45) ABG Total CO2 32.1 H (22-28) mmol/L ABG O2 Saturation 100.3 H (95-98) % ABG O2 Content 11.4 L (15-23) ML/dL ABG Base Excess 4.1 H (-2.0-3.0) mmol/L ABG Hemoglobin 8.1 L (11.7-17.4) g/dL ABG Carboxyhemoglobin 1.4 (0.5-1.5) % POC ABG HHb (Measured) -0.3 L (0.0-5.0) % ABG Methemoglobin 0.6 (0.0-3.0) % ABG O2 Capacity 11.4 L (16-24) mL/dL Isacc Test Yes A-a O2 Difference 116.0 mm/Hg Hgb O2 Saturation 98.3 H (95.0-98.0) % Vent Mode Bipap Mechanical Rate 14 FiO2 40.0 % Inspiratory BiPAP 16 Expiratory BiPAP 9 Sodium (132-148) mmol/l Potassium (3.6-5.0) MMOL/L Chloride (98-107) mmol/L Carbon Dioxide (22-30) mmol/L Anion Gap (10-20) BUN (9-20) mg/dl Creatinine (0.8-1.5) mg/dl Est GFR ( Amer) Est GFR (Non-Af Amer) POC Glucose (mg/dL) 124 H 110 (65-110) mg/dL Random Glucose (75-110) mg/dL Calcium (8.4-10.2) mg/dL Total Bilirubin (0.2-1.3) mg/dl AST (17-59) U/L ALT (21-72) U/L Alkaline Phosphatase (38-126) U/L Total Protein (6.3-8.2) G/DL Albumin (3.5-5.0) g/dL Globulin (2.2-3.9) gm/dL Albumin/Globulin Ratio (1.0-2.1) Procalcitonin (0.19-0.49) NG/ML 02/04/19 02/04/19 02/04/19 Range/Units 11:28 04:15 04:15 WBC (4.8-10.8) K/uL RBC (4.40-5.90) Mil/uL Hgb (12.0-18.0) g/dL Hct (35.0-51.0) % MCV (80.0-94.0) fl MCH (27.0-31.0) pg MCHC (33.0-37.0) g/dL RDW (11.5-14.5) % Plt Count (130-400) K/uL Neutrophils % (Manual) 82 H (42-75) % Band Neutrophils % 2 (0-2) % Lymphocytes % (Manual) 10 L (20-50) % Reactive Lymphs % 1 H (0-0) % Monocytes % (Manual) 3 (0-10) % Metamyelocytes % 2 H (0-0) % Platelet Estimate Decreased L (NORMAL) Large Platelets Present Hypochromasia (manual) Slight Anisocytosis (manual) Slight Macrocytosis (manual) Slight Ovalocytes Slight pCO2 (35-45) mm/Hg pO2 (80-100) mm/Hg HCO3 (21-28) mmol/L ABG pH (7.35-7.45) ABG Total CO2 (22-28) mmol/L ABG O2 Saturation (95-98) % ABG O2 Content (15-23) ML/dL ABG Base Excess (-2.0-3.0) mmol/L ABG Hemoglobin (11.7-17.4) g/dL ABG Carboxyhemoglobin (0.5-1.5) % POC ABG HHb (Measured) (0.0-5.0) % ABG Methemoglobin (0.0-3.0) % ABG O2 Capacity (16-24) mL/dL Isacc Test A-a O2 Difference mm/Hg Hgb O2 Saturation (95.0-98.0) % Vent Mode Mechanical Rate FiO2 % Inspiratory BiPAP Expiratory BiPAP Sodium (132-148) mmol/l Potassium (3.6-5.0) MMOL/L Chloride (98-107) mmol/L Carbon Dioxide (22-30) mmol/L Anion Gap (10-20) BUN (9-20) mg/dl Creatinine (0.8-1.5) mg/dl Est GFR ( Amer) Est GFR (Non-Af Amer) POC Glucose (mg/dL) 116 H (65-110) mg/dL Random Glucose (75-110) mg/dL Calcium (8.4-10.2) mg/dL Total Bilirubin (0.2-1.3) mg/dl AST (17-59) U/L ALT (21-72) U/L Alkaline Phosphatase (38-126) U/L Total Protein (6.3-8.2) G/DL Albumin (3.5-5.0) g/dL Globulin (2.2-3.9) gm/dL Albumin/Globulin Ratio (1.0-2.1) Procalcitonin 0.06 L (0.19-0.49) NG/ML Laboratory Results - last 24 hr 02/04/19 02/04/19 02/04/19 04:15 04:15 11:28 WBC RBC Hgb Hct MCV MCH MCHC RDW Plt Count Neutrophils % (Manual) 82 H Band Neutrophils % 2 Lymphocytes % (Manual) 10 L Reactive Lymphs % 1 H Monocytes % (Manual) 3 Metamyelocytes % 2 H Platelet Estimate Decreased L Large Platelets Present Hypochromasia (manual) Slight Anisocytosis (manual) Slight Macrocytosis (manual) Slight Ovalocytes Slight pCO2 pO2 HCO3 ABG pH ABG Total CO2 ABG O2 Saturation ABG O2 Content ABG Base Excess ABG Hemoglobin ABG Carboxyhemoglobin POC ABG HHb (Measured) ABG Methemoglobin ABG O2 Capacity Isacc Test A-a O2 Difference Hgb O2 Saturation Vent Mode Mechanical Rate FiO2 Inspiratory BiPAP Expiratory BiPAP Sodium Potassium Chloride Carbon Dioxide Anion Gap BUN Creatinine Est GFR ( Amer) Est GFR (Non-Af Amer) POC Glucose (mg/dL) 116 H Random Glucose Calcium Total Bilirubin AST ALT Alkaline Phosphatase Total Protein Albumin Globulin Albumin/Globulin Ratio Procalcitonin 0.06 L 02/04/19 02/04/19 02/05/19 16:52 21:03 04:33 WBC RBC Hgb Hct MCV MCH MCHC RDW Plt Count Neutrophils % (Manual) Band Neutrophils % Lymphocytes % (Manual) Reactive Lymphs % Monocytes % (Manual) Metamyelocytes % Platelet Estimate Large Platelets Hypochromasia (manual) Anisocytosis (manual) Macrocytosis (manual) Ovalocytes pCO2 55 H pO2 100 HCO3 28.2 H ABG pH 7.35 ABG Total CO2 32.1 H ABG O2 Saturation 100.3 H ABG O2 Content 11.4 L ABG Base Excess 4.1 H ABG Hemoglobin 8.1 L ABG Carboxyhemoglobin 1.4 POC ABG HHb (Measured) -0.3 L ABG Methemoglobin 0.6 ABG O2 Capacity 11.4 L Isacc Test Yes A-a O2 Difference 116.0 Hgb O2 Saturation 98.3 H Vent Mode Bipap Mechanical Rate 14 FiO2 40.0 Inspiratory BiPAP 16 Expiratory BiPAP 9 Sodium Potassium Chloride Carbon Dioxide Anion Gap BUN Creatinine Est GFR ( Amer) Est GFR (Non-Af Amer) POC Glucose (mg/dL) 110 124 H Random Glucose Calcium Total Bilirubin AST ALT Alkaline Phosphatase Total Protein Albumin Globulin Albumin/Globulin Ratio Procalcitonin 02/05/19 02/05/19 02/05/19 04:36 04:50 04:50 WBC 2.4 L RBC 2.50 L Hgb 8.0 L Hct 25.8 L MCV 103.2 H D MCH 32.0 H MCHC 31.0 L RDW 19.0 H Plt Count 66 L Neutrophils % (Manual) Band Neutrophils % Lymphocytes % (Manual) Reactive Lymphs % Monocytes % (Manual) Metamyelocytes % Platelet Estimate Large Platelets Hypochromasia (manual) Anisocytosis (manual) Macrocytosis (manual) Ovalocytes pCO2 pO2 HCO3 ABG pH ABG Total CO2 ABG O2 Saturation ABG O2 Content ABG Base Excess ABG Hemoglobin ABG Carboxyhemoglobin POC ABG HHb (Measured) ABG Methemoglobin ABG O2 Capacity Isacc Test A-a O2 Difference Hgb O2 Saturation Vent Mode Mechanical Rate FiO2 Inspiratory BiPAP Expiratory BiPAP Sodium 138 Potassium 4.1 Chloride 106 Carbon Dioxide 31 H Anion Gap 5 L BUN 19 Creatinine 0.7 L Est GFR ( Amer) > 60 Est GFR (Non-Af Amer) > 60 POC Glucose (mg/dL) 121 H Random Glucose 94 Calcium 8.1 L Total Bilirubin 0.4 AST 32 ALT 35 Alkaline Phosphatase 28 L D Total Protein 4.8 L Albumin 2.3 L D Globulin 2.5 Albumin/Globulin Ratio 0.9 L Procalcitonin Radiology Impressions: Radiology Impressions Chest X-Ray 02/03/19 19:17 IMPRESSION: Bilateral lower lobe atelectasis and or infiltrates and bilateral effusions.. Slightly improved pulmonary venous congestive changes. Fingerstick Blood Sugar Results: 121 Review of Systems - Cardiovascular Cardiovascular: absent: Chest Pain, Chest Pain at Rest, Chest Pain with Activity, Claudication, Diaphoresis - Respiratory Respiratory: Cough, Dyspnea, Dyspnea on Exertion. absent: Hemoptysis, Wheezing, Snoring Critical Care Progress Note - Extremities/Vascular Does the Patient have a Central Venous Catheter?: No Does the Patient need a Central Venous Catheter?: No Does the Patient have a Finn Catheter?: No Does the Patient need a Finn Catheter?: No - Nutrition Nutrition: Nutrition Category Date Time Status Heart Healthy Diet [DIET] Diets 02/04/19 Breakfast Active Assessment/Plan (1) Acute on chronic respiratory failure with hypoxemia Current Visit: Yes Status: Acute Priority: High (2) HCAP (healthcare-associated pneumonia) Current Visit: Yes Status: Acute Priority: High Comment: Continue IV Vancomycin, Cefepime and Zithromax (3) Atelectasis, bilateral Current Visit: Yes Status: Acute Priority: High (4) CHF (congestive heart failure) Current Visit: Yes Status: Acute Priority: High (5) Pleural effusion Current Visit: Yes Status: Acute (6) COPD (chronic obstructive pulmonary disease) Current Visit: Yes Status: Chronic Priority: High Comment: Continue nebulizer therapy. Wean off IV Steroids (7) ILD (interstitial lung disease) Current Visit: Yes Status: Chronic Priority: High Comment: Likely related to RA. Needs continued follow up.
[2019-02-05] MEDS: guaiFENesin 600 mg ER Tab PO SCH ×2 (08:50→21:36)
[2019-02-05] MEDS: Azithromycin 500 MG in Sodium Chloride 0.9% 250 ML IVPB SCH (08:53)
--- NOTE | 2019-02-05 09:03 | RAD ---
Date of service: 02/05/2019 HISTORY: Bilateral lower lobe infiltrate COMPARISON: Portable chest 02/03/2019. TECHNIQUE: 1 view obtained. FINDINGS: LUNGS: Fibrotic changes are unchanged at the left base with no definite acute infiltrate felt to be present at the left side. However, patchy atelectasis or infiltrate is identified at the residual right base in the interval though this area is somewhat obscured by rotation of the patient toward the right. PLEURA: No pneumothorax bilaterally. No left pleural effusion. Trace right pleural effusion is difficult to exclude. CARDIOVASCULAR: Calcific atherosclerotic changes are seen related to the thoracic aorta. Stable cardiac silhouette. No pulmonary vascular congestion. OSSEOUS STRUCTURES: Posterior thoracic spinal fusion hardware reiterated. VISUALIZED UPPER ABDOMEN: Normal. OTHER FINDINGS: None. IMPRESSION: Interval atelectasis or infiltrate right base with fibrotic changes stable at the left base. Trace right pleural effusion not completely excluded. Stable cardiomediastinal silhouette.
[2019-02-05] MEDS: Acyclovir 5% OINT 15 APPLIC/15 GM EXT SCH ×4 (09:06→21:38)
--- NOTE | 2019-02-05 09:14 | CARD ---
APPROVED REPORT Date of service: 02/03/2019 EKG Measurement Heart [id number] 160P [id number] <Conclusion> Sinus tachycardia with premature atrial complexes and with occasional premature ventricular complexes Left axis deviation Right bundle branch block Inferior infarct, age undetermined Abnormal ECG
[2019-02-05] MEDS: Cefepime 1 GM in Sodium Chloride 0.9% 100 ML IVPB SCH ×2 (09:30→21:35)
--- NOTE | 2019-02-05 14:54 | PQF ---
PROVIDER RESPONSE TEXT: Sepsis secondary to pneumonia POA REVIEWER QUERY TEXT: Conflicting Documentation Clarification 02/03/19 ICU/Hospitalist note:Sepsis with fever, Tachycardia, Respiration >20 and the Pneumonia appear s in the medical record. After workup please clarify if Sepsis was ruled in or ruled out on admissio n. + Low BP, Herpes Zoster TEMP 102.1, 97.7 x 2, 97.8, 97.7, 97.9 HR: 99, 103, 108, 103, 105, 104 BP:122/52, 83/51, 78/49, 81/52, 86/50, 70/46 A single mention or documentation of multiple diagnoses for the same clinical presentation appears in the record. Please clarify the diagnosis/diagnoses. Please also document if the condition is: -- Confirmed and current -- Confirmed, treated and resolved -- Ruled out -- Other, please specify The patient's Clinical Indicators include: ER: 73 year old male presents to the ED for an evaluation of shortness of breath onset for four days associated with clear sputum. Patient has been using his nebulizer at home with no relief and current ly has chills + cough, fever CXR: Bilateral lower lobe atelectasis and or infiltrates and bilateral effusions. Slightly improved p ulmonary venous congestive changes. Pancytopenia, Lactate 1.4, Procalcitonin day after admission 0.06. BLOOD CS No growth 24 hours TEMP 102.1, 97.7 x 2, 97.8, 97.7, 97.9 HR: 99, 103, 108, 103, 105, 104 BP:122/52, 83/51, 78/49, 81/52, 86/50, 70/46 Rx: IVF, Zovirax ointment, Vancomycin, IV, Zithromax IV , Zovirax IV Query created by: Payal Patel on 02/05/2019 1:38 PM Electronically signed by: Michaela Wood MD 02/05/2019 2:51 PM
--- NOTE | 2019-02-05 17:59 | CP.PCM.CON ---
History of Present Illness - History of Present Illness History of Present Illness: This 73 year old male presented to the emergency room with a four day history of productive cough, shortness of breath, fever and chills. He was found to be hypotensive and his ABG suggested acute on chronic respiratory failure with no rmal lactate level. A chest x-ray showed apparent bilateral lower lobe pulmonary infiltrates. He suffers from rheumatoid arthritis, KRISTOPHER and COPD with a prior episode of pneumonia as well. Clinically he was diagnosed with pneumonia/sepsis with respiratory failure, was given steroids, IV fluids, supplemental oxygen using NPPV and antibiotics, admitted to the intensive care unit. When seen this morning he states that he is feeling somewhat better, has better oxygenation and blood pressure readings, but remains tachypneic. Past Patient History - Infectious Disease Hx of Infectious Diseases: None - Past Medical History & Family History Past Medical History?: Yes - Past Social History Smoking Status: Former Smoker Chewing Tobacco Use: No Cigar Use: Yes Alcohol: None Drugs: Denies - CARDIAC Hx Congestive Heart Failure: No Hx Hypercholesterolemia: Yes Hx Hypertension: Yes - PULMONARY Hx Asthma: Yes Hx Bronchitis: Yes Hx Chronic Obstructive Pulmonary Disease (COPD): Yes Hx Pneumonia: Yes Hx Sleep Apnea: Yes - NEUROLOGICAL Hx Alzheimer's Disease: Yes Hx Dementia: Yes Hx Seizures: No - HEENT Hx HEENT Problems: No - RENAL Hx Chronic Kidney Disease: No - ENDOCRINE/METABOLIC Hx Diabetes Mellitus Type 2: Yes - HEMATOLOGICAL/ONCOLOGICAL Hx Anemia: Yes Hx Human Immunodeficiency Virus (HIV): No - INTEGUMENTARY Hx Dermatological Problems: No - MUSCULOSKELETAL/RHEUMATOLOGICAL Hx Arthritis: Yes (BACK) Hx Back Pain: Yes Hx Fractures: Yes (Hip) Hx Rheumatoid Arthritis: Yes - GASTROINTESTINAL Hx Gastrointestinal Disorders: No - GENITOURINARY/GYNECOLOGICAL Hx Genitourinary Disorders: No Hx Sexually Transmitted Disorders: No - PSYCHIATRIC Hx Psychophysiologic Disorder: No Hx Substance Use: No - SURGICAL HISTORY Hx Coronary Artery Bypass Graft: Yes (1999) Hx Coronary Stent: Yes Hx Orthopedic Surgery: Yes - ANESTHESIA Hx Anesthesia: Yes Hx Anesthesia Reactions: No Hx Malignant Hyperthermia: No Meds Allergies/Adverse Reactions: Allergies Allergy/AdvReac Type Severity Reaction Status Date / Time Penicillins Allergy Unknown RASH Verified 10/30/18 15:52 - Medications Medications: Current Medications Acetaminophen (Tylenol 325mg Tab) 650 mg PO Q6 PRN PRN Reason: Fever >100.4 F Acetaminophen (Tylenol 325mg Tab) 650 mg PO Q6 PRN PRN Reason: Pain, Mild (1-3) Last Admin: 02/04/19 20:08 Dose: 650 mg Acyclovir (Zovirax 5% Oint) 1 applic EXT QID [facility] Last Admin: 02/05/19 16:39 Dose: 1 applic Albuterol/Ipratropium (Duoneb 3 Mg/0.5 Mg (3 Ml) Ud) 3 ml INH RQ4 [facility] Last Admin: 02/05/19 15:13 Dose: 3 ml Atorvastatin Calcium (Lipitor) 20 mg PO HS [facility] Last Admin: 02/04/19 21:10 Dose: 20 mg Baclofen (Lioresal) 10 mg PO DAILY [facility] Last Admin: 02/05/19 08:52 Dose: 10 mg Docusate Sodium (Colace) 100 mg PO Q12 [facility] Last Admin: 02/05/19 08:51 Dose: 100 mg Enoxaparin Sodium (Lovenox) 40 mg SC DAILY [facility]; Protocol Famotidine (Pepcid) 20 mg PO BID [facility] Last Admin: 02/05/19 16:37 Dose: 20 mg Guaifenesin (Mucinex La) 600 mg PO Q12 [facility] Last Admin: 02/05/19 08:50 Dose: 600 mg Hydroxychloroquine Sulfate (Plaquenil) 200 mg PO DAILY [facility]; Protocol Last Admin: 02/05/19 08:51 Dose: 200 mg Azithromycin 500 mg/ Sodium (Chloride) 250 mls @ 250 mls/hr IVPB DAILY [facility]; Protocol Last Admin: 02/05/19 08:53 Dose: 250 mls/hr Vancomycin HCl 1 gm/ Sodium (Chloride) 250 mls @ 166.667 mls/hr IVPB Q12 [facility]; Protocol Last Admin: 02/05/19 09:05 Dose: 166.667 mls/hr Cefepime HCl 1 gm/ Sodium (Chloride) 100 mls @ 100 mls/hr IVPB Q12H [facility]; Protocol Last Admin: 02/05/19 09:30 Dose: 100 mls/hr Acyclovir 600 mg/ Sodium (Chloride) 100 mls @ 100 mls/hr IVPB Q8 [facility]; Protocol Last Admin: 02/05/19 16:42 Dose: 100 mls/hr Insulin Human Regular (Humulin R) 0 units SC ACHS [facility]; Protocol Last Admin: 02/05/19 16:41 Dose: Not Given Lactulose (Enulose) 20 gm PO DAILY PRN PRN Reason: Constipation Methylprednisolone (Solu-Medrol) 30 mg IVP Q8 [facility] Last Admin: 02/05/19 16:38 Dose: 30 mg Montelukast Sodium (Singulair) 10 mg PO HS [facility] Last Admin: 02/04/19 21:10 Dose: 10 mg Tamsulosin HCl (Flomax) 0.4 mg PO Q12 [facility] Last Admin: 02/05/19 08:51 Dose: 0.4 mg Temazepam (Restoril) 15 mg PO HS PRN PRN Reason: Insomnia Physical Exam - Additional Findings Additional findings: Chronically ill appearing male lying in bed using nasal canula 4 LPM. SpO2 92%, HR 100 BPM, RR 20 BPM. Pharynx is pink and moist w/o exudate. Neck is supple and trachea is midline. No visible JVD, no carotid bruit. No dullness on percussion of the anterior chest wall. Breath sounds are diminished bilaterally with bronchial BS in lower lobes bilaterally. No audible wheezes, + dry rales bilaterally in lower lobes. Heart sounds are distant, tachycardic. Abdomen is soft and non-tender. No peripheral or central cyanosis. Results - Vital Signs Recent Vital Signs: Last Vital Signs Temp 97.2 F L 02/05/19 16:00 Pulse 69 02/05/19 16:00 Resp 23 02/05/19 16:00 BP 92/47 L 02/05/19 16:00 Pulse Ox 100 02/05/19 16:00 - Labs Result Diagrams: 02/05/19 04:50 02/05/19 04:50 Labs: Laboratory Results - last 24 hr 02/04/19 02/04/19 02/04/19 11:28 16:52 21:03 WBC RBC Hgb Hct MCV MCH MCHC RDW Plt Count pCO2 pO2 HCO3 ABG pH ABG Total CO2 ABG O2 Saturation ABG O2 Content ABG Base Excess ABG Hemoglobin ABG Carboxyhemoglobin POC ABG HHb (Measured) ABG Methemoglobin ABG O2 Capacity Isacc Test A-a O2 Difference Hgb O2 Saturation Vent Mode Mechanical Rate FiO2 Inspiratory BiPAP Expiratory BiPAP Sodium Potassium Chloride Carbon Dioxide Anion Gap BUN Creatinine Est GFR ( Amer) Est GFR (Non-Af Amer) POC Glucose (mg/dL) 116 H 110 124 H Random Glucose Calcium Total Bilirubin AST ALT Alkaline Phosphatase Total Protein Albumin Globulin Albumin/Globulin Ratio 02/05/19 02/05/19 02/05/19 04:33 04:36 04:50 WBC 2.4 L RBC 2.50 L Hgb 8.0 L Hct 25.8 L MCV 103.2 H D MCH 32.0 H MCHC 31.0 L RDW 19.0 H Plt Count 66 L pCO2 55 H pO2 100 HCO3 28.2 H ABG pH 7.35 ABG Total CO2 32.1 H ABG O2 Saturation 100.3 H ABG O2 Content 11.4 L ABG Base Excess 4.1 H ABG Hemoglobin 8.1 L ABG Carboxyhemoglobin 1.4 POC ABG HHb (Measured) -0.3 L ABG Methemoglobin 0.6 ABG O2 Capacity 11.4 L Isacc Test Yes A-a O2 Difference 116.0 Hgb O2 Saturation 98.3 H Vent Mode Bipap Mechanical Rate 14 FiO2 40.0 Inspiratory BiPAP 16 Expiratory BiPAP 9 Sodium Potassium Chloride Carbon Dioxide Anion Gap BUN Creatinine Est GFR ( Amer) Est GFR (Non-Af Amer) POC Glucose (mg/dL) 121 H Random Glucose Calcium Total Bilirubin AST ALT Alkaline Phosphatase Total Protein Albumin Globulin Albumin/Globulin Ratio 02/05/19 02/05/19 04:50 16:40 WBC RBC Hgb Hct MCV MCH MCHC RDW Plt Count pCO2 pO2 HCO3 ABG pH ABG Total CO2 ABG O2 Saturation ABG O2 Content ABG Base Excess ABG Hemoglobin ABG Carboxyhemoglobin POC ABG HHb (Measured) ABG Methemoglobin ABG O2 Capacity Isacc Test A-a O2 Difference Hgb O2 Saturation Vent Mode Mechanical Rate FiO2 Inspiratory BiPAP Expiratory BiPAP Sodium 138 Potassium 4.1 Chloride 106 Carbon Dioxide 31 H Anion Gap 5 L BUN 19 Creatinine 0.7 L Est GFR ( Amer) > 60 Est GFR (Non-Af Amer) > 60 POC Glucose (mg/dL) 149 H Random Glucose 94 Calcium 8.1 L Total Bilirubin 0.4 AST 32 ALT 35 Alkaline Phosphatase 28 L D Total Protein 4.8 L Albumin 2.3 L D Globulin 2.5 Albumin/Globulin Ratio 0.9 L Assessment & Plan (1) Pneumonia Status: Acute Priority: High Comment: Bilateral/bronchopneumonia with sepsis syndrome. Hospitalization slightly less than 3 months prior, keep HCAP as consideration for Rx. Wean steroids as tolerated, NPPV use as needed, sputum culture, supplemental O2. CT chest to better visualize extent of process. (2) Acute on chronic respiratory failure with hypoxemia Status: Acute Priority: High (3) Hypercapnic respiratory failure Status: Chronic Priority: High Comment: Acute on chronic. - Date & Time Date: 02/05/19 Time: 17:58
--- NOTE | 2019-02-05 20:14 | PN ---
DATE: 02/05/2019 SUBJECTIVE: The patient is seen today. He still has shortness of breath and he needed BiPAP overnight. PHYSICAL EXAMINATION: VITAL SIGNS: Blood pressure 96/51, temperature 98.6, respiratory rate 15 and pulse 84. HEENT: Pale mucosa of the conjunctivae. NECK: Supple. No JVD. No carotid bruit. No lymph node. No thyromegaly. CHEST AND LUNGS: Bilateral symmetrical expansion. Good air exchange. Bilateral rhonchi and has scattered all over lung field. CARDIOVASCULAR SYSTEM: PMI not localized. S1, S2. No additional sounds. ABDOMEN: Normoactive bowel sounds. No tenderness. No organomegaly. No masses. EXTREMITIES: No cyanosis, no clubbing, no edema. CENTRAL NERVOUS SYSTEM: Alert, awake, oriented x2 and no neurological deficits could be appreciated. ASSESSMENT: 1. Herpes zoster. 2. Exacerbation of chronic obstructive pulmonary disease. 3. Bilateral lower lobe pneumonia. 4. Sepsis. 5. Advanced rheumatoid arthritis. 6. Coronary artery disease. PLAN: Continue current antibiotics and bronchodilators and steroid and we will transfer the patient to regular floor and continue acyclovir and monitor blood work and kidney function. Last hemoglobin well transfused patient. Michaela Wood MD
[2019-02-06] MEDS: MethylPREDNISolone 40 mg Vial IVP SCH ×3 (01:36→16:54)
[2019-02-06] MEDS: Albuterol-Ipratrop 3 mg / 0.5 (3 ml) UD INH SCH ×6 (04:42→23:52)
[2019-02-06 05:17] LABS: HEMOGLOBIN 8.4 g/dL (12.0-18.0); MEAN CELL VOLUME 103.2 fl (80.0-94.0); MEAN CORPUSCULAR HEMOGLOBIN 31.9 pg (27.0-31.0); MEAN CORPUSCULAR HGB CONC 30.9 g/dL (33.0-37.0); RBC 2.63 Mil/uL (4.40-5.90); RED CELL DISTRIBUTION WIDTH 18.8 % (11.5-14.5); WHITE BLOOD COUNT 2.1 K/uL (4.8-10.8)
[2019-02-06 05:29] LABS: ALBUMIN 2.3 g/dL (3.5-5.0); ALT/SGPT 34 U/L (21-72); AST/SGOT 32 U/L (17-59); BLOOD UREA NITROGEN 18 mg/dl (9-20); CALCIUM 8.6 mg/dL (8.4-10.2); GFR NON-AFRICAN AMERICAN > 60
[2019-02-06] MEDS: Insulin Regular 100 units/ml SC SCH ×4 (07:04→21:06)
[2019-02-06] MEDS: Cefepime 1 GM in Sodium Chloride 0.9% 100 ML IVPB SCH ×2 (09:30→21:59)
[2019-02-06] MEDS: guaiFENesin 600 mg ER Tab PO SCH ×2 (09:31→20:16)
[2019-02-06] MEDS: Acyclovir 5% OINT 15 APPLIC/15 GM EXT SCH ×4 (09:35→21:06)
--- NOTE | 2019-02-06 09:53 | CP.PCM.PN ---
Subjective - Date & Time of Evaluation Date of Evaluation: 02/06/19 Time of Evaluation: 09:52 - Subjective Subjective: Morning chest x-ray reviewed. Interim events and EMR entries noted. Vital signs appear stable, remains afebrile. Oxygenation remains good using NPPV as well as nasal canula. he continues to expectorate a small volume of sputum. No complaints of chest pain. No dullness on percussion of the anterior chest wall, no subcut emphysema. Breath sounds are diminished anteriorly with scttered dry to medium rales, more L than R. Posteriorly there is dullness in both lower lobes with medium rales, but no bronchial breathing. Heart sounds are distant, rhythm is regular. Will maintain present regimen with NPPV and periods of regular NC as tolerated. Antibiotics, aerosol therapy and corticosteroids remain unchanged today. Objective - Vital Signs/Intake and Output Vital Signs (last 24 hours): Temp Pulse Resp BP Pulse Ox 97.6 F 78 21 122/60 100 02/06/19 08:00 02/06/19 08:00 02/06/19 08:00 02/06/19 08:00 02/06/19 08:00 Intake and Output: 02/05/19 02/06/19 23:59 11:59 Intake Total 1124 752 Output Total 350 450 Balance 774 302 - Medications Medications: Current Medications Acetaminophen (Tylenol 325mg Tab) 650 mg PO Q6 PRN PRN Reason: Fever >100.4 F Acetaminophen (Tylenol 325mg Tab) 650 mg PO Q6 PRN PRN Reason: Pain, Mild (1-3) Last Admin: 02/05/19 21:57 Dose: 650 mg Acyclovir (Zovirax 5% Oint) 1 applic EXT QID [facility] Last Admin: 02/06/19 09:35 Dose: 1 applic Albuterol/Ipratropium (Duoneb 3 Mg/0.5 Mg (3 Ml) Ud) 3 ml INH RQ4 [facility] Last Admin: 02/06/19 07:09 Dose: 3 ml Atorvastatin Calcium (Lipitor) 20 mg PO HS [facility] Last Admin: 02/05/19 21:34 Dose: 20 mg Baclofen (Lioresal) 10 mg PO DAILY [facility] Last Admin: 02/06/19 09:29 Dose: 10 mg Docusate Sodium (Colace) 100 mg PO Q12 [facility] Last Admin: 02/06/19 09:28 Dose: 100 mg Enoxaparin Sodium (Lovenox) 40 mg SC DAILY [facility]; Protocol Famotidine (Pepcid) 20 mg PO BID [facility] Last Admin: 02/06/19 09:33 Dose: 20 mg Guaifenesin (Mucinex La) 600 mg PO Q12 [facility] Last Admin: 02/06/19 09:31 Dose: 600 mg Hydroxychloroquine Sulfate (Plaquenil) 200 mg PO DAILY [facility]; Protocol Last Admin: 02/06/19 09:34 Dose: 200 mg Azithromycin 500 mg/ Sodium (Chloride) 250 mls @ 250 mls/hr IVPB DAILY [facility]; Protocol Last Admin: 02/05/19 08:53 Dose: 250 mls/hr Vancomycin HCl 1 gm/ Sodium (Chloride) 250 mls @ 166.667 mls/hr IVPB Q12 [facility]; Protocol Last Admin: 02/06/19 09:35 Dose: 166.667 mls/hr Cefepime HCl 1 gm/ Sodium (Chloride) 100 mls @ 100 mls/hr IVPB Q12H [facility]; Protocol Last Admin: 02/06/19 09:30 Dose: 100 mls/hr Acyclovir 600 mg/ Sodium (Chloride) 100 mls @ 100 mls/hr IVPB Q8 [facility]; Protocol Last Admin: 02/06/19 09:36 Dose: 100 mls/hr Insulin Human Regular (Humulin R) 0 units SC ACHS [facility]; Protocol Last Admin: 02/06/19 07:04 Dose: Not Given Lactulose (Enulose) 20 gm PO DAILY PRN PRN Reason: Constipation Methylprednisolone (Solu-Medrol) 30 mg IVP Q8 [facility] Last Admin: 02/06/19 09:34 Dose: 30 mg Montelukast Sodium (Singulair) 10 mg PO HS [facility] Last Admin: 02/05/19 21:36 Dose: 10 mg Tamsulosin HCl (Flomax) 0.4 mg PO Q12 [facility] Last Admin: 02/06/19 09:29 Dose: 0.4 mg Temazepam (Restoril) 15 mg PO HS PRN PRN Reason: Insomnia - Labs Labs: 02/06/19 04:09 02/06/19 04:09 PT 9.7 Seconds (9.8-13.1) L 03/30/19 19:35 INR 0.9 02/03/19 19:35 APTT 35.9 Seconds (25.6-37.1) 02/03/19 19:35 Assessment and Plan (1) Pneumonia Status: Acute (2) Acute on chronic respiratory failure with hypoxemia Status: Acute (3) Hypercapnic respiratory failure Status: Chronic
[2019-02-06] MEDS: Azithromycin 500 MG in Sodium Chloride 0.9% 250 ML IVPB SCH (12:15)
--- NOTE | 2019-02-06 12:40 | RAD ---
Date of service: 02/06/2019 HISTORY: pneumonia COMPARISON: 02/05/2019 FINDINGS: LUNGS: Again seen are low lung volumes. There is moderate pulmonary venous congestion. There is confluent airspace disease in the left lower lobe. PLEURA: Moderate right and small left pleural effusions. No pneumothorax. CARDIOVASCULAR: Stable. There are aortic atherosclerotic calcifications present. OSSEOUS STRUCTURES: Status post posterior spinal fixation in the mid thoracic spine with transpedicular screws and interconnecting rods VISUALIZED UPPER ABDOMEN: Normal. OTHER FINDINGS: None. IMPRESSION: Little interval change in presumable moderate congestive heart failure with moderate right and small left pleural effusions. Confluent airspace disease in the left lower lobe may represent atelectasis however superimposed pneumonia cannot be excluded. Follow-up is advised.
--- NOTE | 2019-02-06 16:24 | CP.CCUPN ---
CCU Subjective - Physician Review Subjective (Free Text): 02/05/19 16:09 The patient was Seen/interviewed and examined by me at the bedside during ICU round, Medical records reviewed and Management issues were discussed and formulated with the house staff. Events reviewed 73 years old Male with past medical history of HTN, Hypercholesterolemia, Hyperlipidemia, Arthritis (BACK), Asthma, Back Problems, Bronchitis, CAD, COPD, Dementia, Diabetes, Fractures (Hip), Pneumonia, Rheumatoid Arthritis, Sleep Apnea and Alzheimer's Disease Who presents to the ED for an evaluation of shortness of breath onset for four days associated with clear sputum Chest X Ray shows Stable RLL infiltrate with effusion and persistence of the LLL atelectasis Patient Admitted with Sepsis from Community Acquired pneumonia with Pleural effusion Doing better today Patient is comfortable, in no apparent distress Less SOB, No chest pain Afebrile overnight Last 24H I&O 2326/1100 NSR on the monitor Patient on Zovirax and Airborne precautions for (+) Herpes Zoster. CCU Objective - Vital Signs / Intake & Output Vital Signs (Last 4 hours): Vital Signs Temp Pulse Resp BP Pulse Ox 02/06/19 16:00 97.8 F 103 H 16 99/49 L 100 02/06/19 15:29 117 H Intake and Output (Last 8hrs): Intake & Output 02/06/19 02/06/19 02/06/19 06:59 14:59 22:59 Intake Total 302 700 Output Total 450 200 Balance -148 500 Weight 150 lb 3.2 oz 150 lb 3.2 oz Intake: IV 22 Intake, Piggyback 100 700 Oral 180 Output: Urine 450 200 Urine, Voided 450 200 - Physical Exam Head: Positive for: Atraumatic, Normocephalic Pupils: Positive for: PERRL Extroacular Muscles: Positive for: EOMI Conjunctiva: Positive for: Normal. Negative for: Injected, Icteric Mouth: Positive for: Moist Mucous Membranes Nose (Internal): Positive for: Normal Inspection Neck: Positive for: Normal Range of Motion, Trachea Midline. Negative for: Meningeal Signs, MIDLINE TENDERNESS, Paraspinal Tenderness, JVD, Lymphadenopathy, Bruit, Other Respiratory/Chest: Positive for: Good Air Exchange, Decreased Breath Sounds. Negative for: Respiratory Distress, Accessory Muscle Use, Wheezes Cardiovascular: Positive for: Regular Rate and Rhythm, Normal S1, S2, Peripheal Pulses Present. Negative for: Murmurs, Tachycardic, Bradycardic Abdomen: Positive for: Normal Bowel Sounds. Negative for: Tenderness, Distention Psychiatric: Positive for: Alert - Medications Active Medications: Active Medications Generic Name Dose Route Start Last Admin Trade Name Freq PRN Reason Stop Dose Admin Acetaminophen 650 mg 02/03/19 23:27 Tylenol 325mg Tab PO Q6 PRN Fever >100.4 F Acetaminophen 650 mg 02/03/19 23:28 02/05/19 21:57 Tylenol 325mg Tab PO 650 mg Q6 PRN Administration Pain, Mild (1-3) Acyclovir 1 applic 02/04/19 09:00 02/06/19 12:16 Zovirax 5% Oint EXT 1 applic QID [facility] Administration Albuterol/Ipratropium 3 ml 02/04/19 08:00 02/06/19 15:29 Duoneb 3 Mg/0.5 Mg (3 Ml) Ud INH 3 ml RQ4 [facility] Administration Atorvastatin Calcium 20 mg 02/04/19 22:00 02/05/19 21:34 Lipitor PO 20 mg HS [facility] Administration Baclofen 10 mg 02/04/19 09:00 02/06/19 09:29 Lioresal PO 10 mg DAILY [facility] Administration Docusate Sodium 100 mg 02/04/19 09:00 02/06/19 09:28 Colace PO 100 mg Q12 [facility] Administration Famotidine 20 mg 02/04/19 09:00 02/06/19 09:33 Pepcid PO 20 mg BID [facility] Administration Guaifenesin 600 mg 02/04/19 09:00 02/06/19 09:31 Mucinex La PO 600 mg Q12 [facility] Administration Hydroxychloroquine Sulfate 200 mg 02/04/19 09:00 02/06/19 09:34 Plaquenil PO 200 mg DAILY [facility] Administration Protocol Azithromycin 500 mg/ Sodium 250 mls @ 250 mls/hr 02/04/19 09:00 02/06/19 12:15 Chloride IVPB 250 mls/hr DAILY [facility] Administration Protocol Vancomycin HCl 1 gm/ Sodium 250 mls @ 166.667 mls/hr 02/04/19 09:00 02/06/19 09:35 Chloride IVPB 166.667 mls/hr Q12 [facility] Administration Protocol Cefepime HCl 1 gm/ Sodium 100 mls @ 100 mls/hr 02/04/19 22:15 02/06/19 09:30 Chloride IVPB 100 mls/hr Q12H [facility] Administration Protocol Acyclovir 600 mg/ Sodium 100 mls @ 100 mls/hr 02/05/19 01:00 02/06/19 09:36 Chloride IVPB 100 mls/hr Q8 [facility] Administration Protocol Insulin Human Regular 0 units 02/04/19 07:30 02/06/19 12:14 Humulin R SC Not Given ACHS [facility] Protocol Lactulose 20 gm 02/04/19 13:54 Enulose PO DAILY PRN Constipation Methylprednisolone 30 mg 02/04/19 01:00 02/06/19 09:34 Solu-Medrol IVP 30 mg Q8 [facility] Administration Montelukast Sodium 10 mg 02/04/19 22:00 02/05/19 21:36 Singulair PO 10 mg HS [facility] Administration Tamsulosin HCl 0.4 mg 02/04/19 21:00 02/06/19 09:29 Flomax PO 0.4 mg Q12 [facility] Administration Temazepam 15 mg 02/05/19 00:03 Restoril PO HS PRN Insomnia - Patient Studies Lab Studies: Microbiology Studies 02/03/19 19:35 Blood Culture - Preliminary Blood-Venous NO GROWTH AFTER 48 HOURS 02/03/19 19:35 Blood Culture - Preliminary Blood-Venous NO GROWTH AFTER 48 HOURS 02/03/19 08:00 Gram Stain - Final Sputum Lab Studies 02/06/19 02/06/19 02/06/19 Range/Units 11:25 04:16 04:09 WBC (4.8-10.8) K/uL RBC (4.40-5.90) Mil/uL Hgb (12.0-18.0) g/dL Hct (35.0-51.0) % MCV (80.0-94.0) fl MCH (27.0-31.0) pg MCHC (33.0-37.0) g/dL RDW (11.5-14.5) % Plt Count (130-400) K/uL Sodium 139 (132-148) mmol/l Potassium 3.9 (3.6-5.0) MMOL/L Chloride 105 (98-107) mmol/L Carbon Dioxide 32 H (22-30) mmol/L Anion Gap 6 L (10-20) BUN 18 (9-20) mg/dl Creatinine 0.6 L (0.8-1.5) mg/dl Est GFR ( Amer) > 60 Est GFR (Non-Af Amer) > 60 POC Glucose (mg/dL) 138 H 103 (65-110) mg/dL Random Glucose 99 (75-110) mg/dL Calcium 8.6 (8.4-10.2) mg/dL Total Bilirubin 0.3 (0.2-1.3) mg/dl AST 32 (17-59) U/L ALT 34 (21-72) U/L Alkaline Phosphatase 31 L (38-126) U/L Total Protein 4.6 L (6.3-8.2) G/DL Albumin 2.3 L (3.5-5.0) g/dL Globulin 2.3 (2.2-3.9) gm/dL Albumin/Globulin Ratio 1.0 (1.0-2.1) 02/06/19 02/05/19 02/05/19 Range/Units 04:09 21:49 16:40 WBC 2.1 L (4.8-10.8) K/uL RBC 2.63 L (4.40-5.90) Mil/uL Hgb 8.4 L (12.0-18.0) g/dL Hct 27.1 L (35.0-51.0) % MCV 103.2 H (80.0-94.0) fl MCH 31.9 H (27.0-31.0) pg MCHC 30.9 L (33.0-37.0) g/dL RDW 18.8 H (11.5-14.5) % Plt Count 72 L (130-400) K/uL Sodium (132-148) mmol/l Potassium (3.6-5.0) MMOL/L Chloride (98-107) mmol/L Carbon Dioxide (22-30) mmol/L Anion Gap (10-20) BUN (9-20) mg/dl Creatinine (0.8-1.5) mg/dl Est GFR ( Amer) Est GFR (Non-Af Amer) POC Glucose (mg/dL) 116 H 149 H (65-110) mg/dL Random Glucose (75-110) mg/dL Calcium (8.4-10.2) mg/dL Total Bilirubin (0.2-1.3) mg/dl AST (17-59) U/L ALT (21-72) U/L Alkaline Phosphatase (38-126) U/L Total Protein (6.3-8.2) G/DL Albumin (3.5-5.0) g/dL Globulin (2.2-3.9) gm/dL Albumin/Globulin Ratio (1.0-2.1) Laboratory Results - last 24 hr 02/05/19 02/05/19 02/06/19 16:40 21:49 04:09 WBC 2.1 L RBC 2.63 L Hgb 8.4 L Hct 27.1 L MCV 103.2 H MCH 31.9 H MCHC 30.9 L RDW 18.8 H Plt Count 72 L Sodium Potassium Chloride Carbon Dioxide Anion Gap BUN Creatinine Est GFR ( Amer) Est GFR (Non-Af Amer) POC Glucose (mg/dL) 149 H 116 H Random Glucose Calcium Total Bilirubin AST ALT Alkaline Phosphatase Total Protein Albumin Globulin Albumin/Globulin Ratio 02/06/19 02/06/19 02/06/19 04:09 04:16 11:25 WBC RBC Hgb Hct MCV MCH MCHC RDW Plt Count Sodium 139 Potassium 3.9 Chloride 105 Carbon Dioxide 32 H Anion Gap 6 L BUN 18 Creatinine 0.6 L Est GFR ( Amer) > 60 Est GFR (Non-Af Amer) > 60 POC Glucose (mg/dL) 103 138 H Random Glucose 99 Calcium 8.6 Total Bilirubin 0.3 AST 32 ALT 34 Alkaline Phosphatase 31 L Total Protein 4.6 L Albumin 2.3 L Globulin 2.3 Albumin/Globulin Ratio 1.0 Radiology Impressions: Radiology Impressions Chest X-Ray 02/06/19 09:04 IMPRESSION: Little interval change in presumable moderate congestive heart failure with moderate right and small left pleural effusions. Confluent airspace disease in the left lower lobe may represent atelectasis however superimposed pneumonia cannot be excluded. Follow-up is advised. Fingerstick Blood Sugar Results: 138 Critical Care Progress Note - Nutrition Nutrition: Nutrition Category Date Time Status Dysphagia/Modified Consistency Diet [DIET] Diets 02/05/19 Dinner Active Assessment/Plan (1) Acute on chronic respiratory failure with hypoxemia Current Visit: Yes Status: Acute Priority: High (2) HCAP (healthcare-associated pneumonia) Current Visit: Yes Status: Acute Priority: High Comment: Continue IV Vancomycin, Cefepime and Zithromax (3) Atelectasis, bilateral Current Visit: Yes Status: Acute Priority: High (4) CHF (congestive heart failure) Current Visit: Yes Status: Acute Priority: High (5) Pleural effusion Current Visit: Yes Status: Acute (6) COPD (chronic obstructive pulmonary disease) Current Visit: Yes Status: Chronic Priority: High Comment: Continue nebulizer therapy. Wean off IV Steroids (7) ILD (interstitial lung disease) Current Visit: Yes Status: Chronic Priority: High Comment: Likely related to RA. Needs continued follow up.
--- NOTE | 2019-02-06 21:13 | PQF ---
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 REVIEWER QUERY TEXT: Rheumatoid Arthritis Specificity Advanced Rheumatoid arthritis is documented in the Medical Record. Please clarify the specific site and laterality if known. 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
[2019-02-07] MEDS: MethylPREDNISolone 40 mg Vial IVP SCH ×3 (00:26→21:11)
[2019-02-07] MEDS: Albuterol-Ipratrop 3 mg / 0.5 (3 ml) UD INH SCH ×5 (04:50→19:13)
[2019-02-07 05:04] LABS: BLOOD UREA NITROGEN 18 mg/dl (9-20); CALCIUM 8.8 mg/dL (8.4-10.2); GFR NON-AFRICAN AMERICAN > 60
[2019-02-07 05:27] LABS: HEMOGLOBIN 9.1 g/dL (12.0-18.0); MEAN CELL VOLUME 102.2 fl (80.0-94.0); MEAN CORPUSCULAR HGB CONC 31.3 g/dL (33.0-37.0); RBC 2.84 Mil/uL (4.40-5.90); RED CELL DISTRIBUTION WIDTH 18.3 % (11.5-14.5)
[2019-02-07 05:31] LABS: WHITE BLOOD COUNT 1.3 K/uL (4.8-10.8)
[2019-02-07] MEDS ORDERED: Albuterol 0.083% Inhal Sol (2.5 mg/3 mL) UD INH PRN (09:14)
[2019-02-07] MEDS ORDERED: methylPREDNISolone 30 MG in Sodium Chloride 0.9% 50 ML IV SCH (09:15)
--- NOTE | 2019-02-07 09:16 | CP.PCM.PN ---
Subjective - Date & Time of Evaluation Date of Evaluation: 02/07/19 Time of Evaluation: 09:16 - Subjective Subjective: Seen on rounds in the ICU, awaiting transfer to medical floor. He continues to complain of feeling tired and weak and having left-sided chest pain. His vital signs have remained stable and he has been using BiPAP mask ventilation overnight. He has remained afebrile and his vital signs have been stable. Tenderness to palpation is noted in the left anterior axillary line. No rash or any eruption is seen. Breath sounds are diminished bilaterally. Medium rales are heard more left than right, improved from the day prior. No audible wheezing. No bronchial breath sounds. The neck is supple and trachea is midline. No neck vein distention noted. Recurrent bronchopneumonia in an elderly male with rheumatoid arthritis taking steroids as well as Plaquenil. Acute on chronic hypercapnic/hypoxemic respiratory failure. Maintain current medical regimen. Gradual reduction in corticosteroids. Continue BiPAP ventilation nocturnally and when necessary during the daytime. Patient appears to be stable for transfer to a medical floor. Objective - Vital Signs/Intake and Output Vital Signs (last 24 hours): Temp Pulse Resp BP Pulse Ox 97.9 F 75 18 115/62 100 02/07/19 04:00 02/07/19 07:39 02/07/19 06:00 02/07/19 06:00 02/07/19 06:00 Intake and Output: 02/06/19 02/07/19 23:59 11:59 Intake Total 748 164 Output Total 100 600 Balance 648 -436 - Medications Medications: Current Medications Acetaminophen (Tylenol 325mg Tab) 650 mg PO Q6 PRN PRN Reason: Fever >100.4 F Acetaminophen (Tylenol 325mg Tab) 650 mg PO Q6 PRN PRN Reason: Pain, Mild (1-3) Last Admin: 02/05/19 21:57 Dose: 650 mg Acyclovir (Zovirax 5% Oint) 1 applic EXT QID [facility] Last Admin: 02/06/19 21:06 Dose: 1 applic Albuterol Sulfate (Albuterol 0.083% Inhal Yajaira (2.5 Mg/3 Ml) Ud) 2.5 mg INH RQ4 PRN PRN Reason: Shortness of Breath Albuterol/Ipratropium (Duoneb 3 Mg/0.5 Mg (3 Ml) Ud) 3 ml INH RQID [facility] Atorvastatin Calcium (Lipitor) 20 mg PO HS [facility] Last Admin: 02/06/19 21:06 Dose: 20 mg Baclofen (Lioresal) 10 mg PO DAILY [facility] Last Admin: 02/06/19 09:29 Dose: 10 mg Docusate Sodium (Colace) 100 mg PO Q12 [facility] Last Admin: 02/06/19 20:16 Dose: 100 mg Famotidine (Pepcid) 20 mg PO BID [facility] Last Admin: 02/06/19 09:33 Dose: 20 mg Guaifenesin (Mucinex La) 600 mg PO Q12 [facility] Last Admin: 02/06/19 20:16 Dose: 600 mg Hydroxychloroquine Sulfate (Plaquenil) 200 mg PO DAILY [facility]; Protocol Last Admin: 02/06/19 09:34 Dose: 200 mg Azithromycin 500 mg/ Sodium (Chloride) 250 mls @ 250 mls/hr IVPB DAILY [facility]; Protocol Last Admin: 02/06/19 12:15 Dose: 250 mls/hr Vancomycin HCl 1 gm/ Sodium (Chloride) 250 mls @ 166.667 mls/hr IVPB Q12 [facility]; Protocol Last Admin: 02/06/19 20:18 Dose: 166.667 mls/hr Cefepime HCl 1 gm/ Sodium (Chloride) 100 mls @ 100 mls/hr IVPB Q12H [facility]; Protoc ol Last Admin: 02/06/19 21:59 Dose: 100 mls/hr Acyclovir 600 mg/ Sodium (Chloride) 100 mls @ 100 mls/hr IVPB Q8 [facility]; Protocol Last Admin: 02/07/19 00:27 Dose: 100 mls/hr Methylprednisolone 30 mg/ (Sodium Chloride) 50 mls @ 100 mls/hr IV Q12H [facility] Insulin Human Regular (Humulin R) 0 units SC ACHS [facility]; Protocol Last Admin: 02/06/19 21:06 Dose: Not Given Lactulose (Enulose) 20 gm PO DAILY PRN PRN Reason: Constipation Montelukast Sodium (Singulair) 10 mg PO HS [facility] Last Admin: 02/06/19 21:06 Dose: 10 mg Tamsulosin HCl (Flomax) 0.4 mg PO Q12 [facility] Last Admin: 02/06/19 20:15 Dose: 0.4 mg Temazepam (Restoril) 15 mg PO HS PRN PRN Reason: Insomnia - Labs Labs: 02/07/19 04:10 02/07/19 04:10 PT 9.7 Seconds (9.8-13.1) L 02/03/19 19:35 INR 0.9 02/03/19 19:35 APTT 35.9 Seconds (25.6-37.1) 02/03/19 19:35 Assessment and Plan (1) Pneumonia Status: Acute (2) Acute on chronic respiratory failure with hypoxemia Status: Acute (3) Hypercapnic respiratory failure Status: Chronic
[2019-02-07] MEDS: Insulin Regular 100 units/ml SC SCH ×4 (09:52→21:12)
[2019-02-07 09:56] LABS: ABG ALLEN TEST YES; ARTERIAL BLOOD GAS HCO3 34.2 mmol/L (21-28); ARTERIAL BLOOD GAS HEMOGLOBIN 9.4 g/dL (11.7-17.4); ARTERIAL BLOOD GAS O2 CAPACITY 12.9 mL/dL (16-24); ARTERIAL BLOOD GAS O2 CONTENT 12.1 ML/dL (15-23); ARTERIAL BLOOD GAS O2 SAT 93.5 % (95-98); ARTERIAL BLOOD GAS PCO2 68 mm/Hg (35-45); ARTERIAL BLOOD GAS PH 7.37 (7.35-7.45); ARTERIAL BLOOD GAS PO2 55 mm/Hg (80-100); ARTERIAL BLOOD GAS TCO2 41.4 mmol/L (22-28)
[2019-02-07] MEDS: Acyclovir 5% OINT 15 APPLIC/15 GM EXT SCH ×4 (10:32→21:12)
[2019-02-07] MEDS: guaiFENesin 600 mg ER Tab PO SCH ×2 (10:38→21:10)
--- NOTE | 2019-02-07 10:54 | CARD ---
APPROVED REPORT Date of service: 02/07/2019 EKG Measurement Heart [id number] <Conclusion> Sinus tachycardia with premature atrial complexes Right bundle branch block Abnormal ECG
--- NOTE | 2019-02-07 12:32 | CP.CCUPN ---
CCU Subjective - Physician Review Subjective (Free Text): Remains awake and appropriately responsive. Had substernal chest discomfort radiating from Left axilla and Left shoulder, pain pattern is not new, and repeat EKG did not show any new changes. He has been on nasal cannula earlier this AM; and now has returned back to BiPAP mask support. Does not appear distressed as he is in bed almost in a flat supine positon. Afebrile now, no recurrent fever spikes, SBP in 100s, HR 90s, RR 24-28, SPO2 99% on 35% oxygen via BiPAP 20/04 and generated approx. 460 ml TV. ROS: No other pertinent negs or positives on system review PMSFH: All other Nursing and physician documentation reviewed to date; no new pertinent info noted relevant to current medical problems. EXAM- HEENT: no icterus, no gaze preference NECK: No JVD visible, supple, carotids equal upstroke bilat/no bruit CHEST: decreased BS at the bases, especially R base; no wheezes audible bilaterally. Large well healed scar across left anterior chest and midline. Another T spine scar over the mid-upper back. HEART: regular, distant, S1S2, no rubs or murmurs noted ABD: soft and obese, nontender, no guarding, no organomegaly, BS hypoactive. EXT: no leg edema, no calf tenderness or palpable cords, distal pulses intact and symmetrical. Bilateral arthritic hand deformities. NEURO: no gross focal deficits. SKIN: no rashes, warm and dry LABS: WBC= 1.3 HGB= 9.1 PLTs= 78K 7.37/68/55 on 4LPM NC Na= 138 K= 4.1 CL= 102 HCO3= 36 BUN/Cr= 18/0.5 BS= 104 CXR: (my interp)- 02/06 film: R effusion and / or R basilar infiltrate / lobar atelectasis; atelectasis Left base. IMPRESSION / MAJOR PROBLEMS NOW: 1. Acute on chronic Hypercarbic Resp Failure 2 RLL effusion / Pneumonia; Atelectasis and Mucous plugging 2. Steroid-Dependent Rheumatoid Arthritis 3. Chronic Thrombocytopenia 4. h/o Thoracic Spinal fusion surgery PLAN: 1. So far has averted need for acute MV support; reserved if hypercarbia worsens or coincident with any deterioration in mental status. 2. Consider CT chest, if R effusion is amenable to thoracentesis. 3. Empiric Abx coverage. Patient is leukopenic, but not neutropenic (medication effect?) 4. No Advance Directives, presently full Code support.
[2019-02-07] MEDS ORDERED: Digoxin 500 mcg/2ml (0.5 mg/2ml) Inj IVP ONE (13:30)
[2019-02-07] MEDS: Cefepime 1 GM in Sodium Chloride 0.9% 100 ML IVPB SCH ×2 (14:01→22:47)
[2019-02-07] MEDS: Azithromycin 500 MG in Sodium Chloride 0.9% 250 ML IVPB SCH (14:33)
--- NOTE | 2019-02-07 19:16 | PN ---
DATE: 02/07/2019 SUBJECTIVE: The patient is seen today, 02/07/2019. He is on BiPAP and he desaturates as he has been taking off BiPAP. PHYSICAL EXAMINATION: VITAL SIGNS: Blood pressure 93/57, temperature 98.4, respiratory rate 30, and pulse 100. HEENT: Pupils equal, reactive to light. Normal-appearing mucosa of the conjunctivae, oropharynx and nasal membrane mucosa. NECK: Supple. No JVD. No carotid bruit. No lymph node. No thyromegaly. CHEST AND LUNGS: Bilateral symmetrical expansion. Good air exchange. No rales, no rhonchi. CARDIOVASCULAR SYSTEM: PMI not localized. S1 and S2. No additional sounds. ABDOMEN: Normoactive bowel sounds. No tenderness. No organomegaly. No masses. EXTREMITIES: No cyanosis, no clubbing, no edema. OUTSOLE HANDLER: Alert, awake, oriented x2, moves all extremities equally. ASSESSMENT: Bilateral pneumonia, exacerbation of chronic obstructive pulmonary disease, history of chronic obstructive pulmonary disease, on home oxygen, coronary artery disease status post coronary artery bypass graft, and advanced rheumatoid arthritis. PLAN: Continue current antibiotics and bronchodilators and steroids. Follow Pulmonary recommendations. Michaela Wood MD
--- NOTE | 2019-02-08 00:33 | PN ---
DATE: 02/06/2019 SUBJECTIVE: The patient is seen today, 02/06/2019. He is still having shortness of breath even during eating, and he is in need for BiPAP. PHYSICAL EXAMINATION: VITAL SIGNS: Blood pressure 122/60, temperature 97.6, respiratory rate 20 and pulse 65. HEENT: Pupils equal, reactive to light. Normal-appearing mucosa of the conjunctivae, oropharynx and nasal membrane mucosa. NECK: Supple. No JVD. No carotid bruit. No lymph nodes. No thyromegaly. CHEST AND LUNGS: Bilateral symmetrical expansion. Good air exchange. There are bilateral basilar rales and decreased air entry, both lower lung amos. CARDIOVASCULAR SYSTEM: PMI not localized. S1, S2. No additional sounds. ABDOMEN: Normoactive bowel sounds. No tenderness. No organomegaly. No masses. The vesicular rashes at the left lower abdomen are crusting. FLEET OPERATIONS MANAGER: Alert, awake, oriented x2 and no neurological deficit could be appreciated. ASSESSMENT: Bilateral pneumonia, pleural effusion, chronic obstructive pulmonary disease exacerbation, advanced rheumatoid arthritis, coronary artery disease, status post coronary artery bypass graft, history of hypertension, anemia of chronic disease. PLAN: Continue current medications, antibiotics, bronchodilators and acyclovir. Physical therapy. Plan to discharge. We will downgrade to regular floor and prepare the patient to go to transitional care unit for deconditioning and completion of treatment. Michaela Wood MD
--- NOTE | 2019-02-08 04:01 | CON ---
DATE: 02/07/2019 REASON FOR CONSULTATION: Chest pain. HISTORY OF PRESENT ILLNESS: The patient is a 73-year-old [place]ag[place] male who has a history of coronary artery disease, status post coronary artery bypass surgery, history of advanced chronic obstructive lung disease, history of rheumatoid arthritis with significant hand deformity, history of spinal fracture requiring spinal fusion and history of multiple fractures in the past. The patient was initially admitted four days ago because of shortness of breath and productive cough of clear sputum four days prior to the admission. The patient started to experience left-sided sharp chest pain yesterday. The pain is limited to the lateral aspect of the left chest wall. The patient denies any retrosternal chest pain. SOCIAL HISTORY: The patient is a former heavy smoker. He is a nondrinker. MEDICATIONS: Acyclovir 100 mg intravenously every 8 hours, albuterol inhaler every 4 hours, Zithromax 500 mg intravenously daily, Cefepime 1 g intravenously every 12 hours, daily, Lipitor 20 mg once a day, Baclofen 2 mg daily, Mucinex LA 600 mg twice a day, Plaquenil 200 mg daily, Restoril 50 mg at bedtime, Singulair 10 mg at bedtime, Solu-Medrol 30 mg intravenously every 12 hours, vancomycin 1 g intravenously every 12 hours, acyclovir ointment 4 times daily to the anterior abdominal wall. REVIEW OF SYSTEMS: The patient has non-painful, non-pruritic eruption of the anterior abdominal wall periumbilically. No fever or chills. No nausea or vomiting. PHYSICAL EXAMINATION: GENERAL: The patient is an elderly male who does not appear to be in acute distress. VITAL SIGNS: Blood pressure 93/57; heart rate earlier was 160, currently 76 beats per minute; temperature 98.4; respirations 30. HEENT: Pale conjunctivae. CHEST: Bilateral rhonchi. HEART: S1 and S2, regular. ABDOMEN: Soft. EXTREMITIES: No pedal edema. LABORATORY DATA: Today's CBC: WBC 1.3, hemoglobin and hematocrit 9.1 and 29.1, platelet count 78,000. Today's SMA-7: Sodium 138, potassium 4.1, chloride 102, CO2 of 36, glucose 104, BUN 18, creatinine 0.5. EKG revealed sinus tachycardia with premature atrial complexes at the rate of 108, right bundle-branch block. ProBNP is 1360. Blood culture is negative after 3 days. The most recent chest x-ray yesterday revealed cardiomegaly, bilateral lower lobe infiltrate, consider bilateral lower lobe pneumonia, and mild congestive heart failure was noted. Official report with x-ray, little interval change in the presumable moderate congestive heart failure, moderate right and a small left pleural effusion, confluent airspace disease in the left lower lobe, may represent atelectasis. However, superimposed pneumonia cannot be excluded. The most recent echo was in 03/2017 which revealed normal ejection fraction. ASSESSMENT: 1. Bilateral pneumonia. 2. Mild congestive heart failure on x-ray. 3. Bilateral pleural effusion. 4. Coronary artery disease with history of coronary artery bypass surgery in the past. 5. Rheumatoid arthritis. 6. Pancytopenia. 7. Consider herpetic eruption of the anterior abdominal wall. RECOMMENDATIONS: Continue current intravenous as well as local acyclovir. Continue intravenous cefepime, intravenous Zithromax, and intravenous vancomycin antibiotic therapy. Continue Lipitor 20 mg once a day, Plaquenil 200 mg daily, Solu-Medrol 30 mg every 12 hours. Consider prophylactic subcutaneous Lovenox as long as the platelet count remains stable. We will obtain bedside echocardiographic study to evaluate left ventricular systolic function as well as the possibility of pericardial effusion. Geo Whitmore MD
[2019-02-08 07:01] LABS: HEMOGLOBIN 8.7 g/dL (12.0-18.0); MEAN CORPUSCULAR HEMOGLOBIN 32.3 pg (27.0-31.0); MEAN CORPUSCULAR HGB CONC 31.7 g/dL (33.0-37.0); RBC 2.68 Mil/uL (4.40-5.90); RED CELL DISTRIBUTION WIDTH 18.1 % (11.5-14.5)
[2019-02-08 07:05] LABS: WHITE BLOOD COUNT 1.5 K/uL (4.8-10.8)
[2019-02-08 07:28] LABS: BLOOD UREA NITROGEN 16 mg/dl (9-20); CALCIUM 8.5 mg/dL (8.4-10.2); GFR NON-AFRICAN AMERICAN > 60
[2019-02-08] MEDS: Insulin Regular 100 units/ml SC SCH ×4 (07:36→22:03)
[2019-02-08] MEDS: Albuterol-Ipratrop 3 mg / 0.5 (3 ml) UD INH SCH ×4 (08:26→19:13)
[2019-02-08] MEDS: guaiFENesin 600 mg ER Tab PO SCH ×2 (08:45→21:15)
[2019-02-08] MEDS: MethylPREDNISolone 40 mg Vial IVP SCH ×2 (08:46→21:15)
[2019-02-08] MEDS: Acyclovir 5% OINT 15 APPLIC/15 GM EXT SCH ×4 (08:48→21:16)
--- NOTE | 2019-02-08 09:24 | CP.PCM.PN ---
Subjective - Date & Time of Evaluation Date of Evaluation: 02/08/19 Time of Evaluation: : - Subjective Subjective: Seen on rounds in ICU. Still complains of left sided chest pain at rest. Yesterday's CT chest was reviewed. Vital signs have been stable, but he develops tachycardia quickly when off BiPAP. CT (unofficial); shows bilateral lower lobe infiltrates/consolidation, small lungs and small effusions. When placed back on NPPV his SpO2 is good. There has been progressive increase in CO2 therefor BiPAP settings were changed slightly. Breath sounds are present in both lungs, rhonchi and medium rales in lower lobes bilaterally. No audible wheezing, no bronchial breath sounds. There is still tenderness on palpation of the left lateral chest wall. Heart sounds are distant, rhythm tachy >120BPM preently. Chronic lung disease with hypercapnia and hypoxemia complicated by acute broncho-pneumonia. Would continue Non-Invasive Positive Pressure Ventilation. Continue antibiotic therapy and steroids. Addition of roflumilast or theophylline would be difficult because of present tachycardia. Would consider gum sprayer azithromycin (250MG PO TIW) as an additional measure. Consideration for tracheostomy and ventilator support as well. Objective - Vital Signs/Intake and Output Vital Signs (last 24 hours): Temp Pulse Resp BP Pulse Ox 97.9 F 72 15 99/66 L 100 02/08/19 08:00 02/08/19 08:00 02/08/19 08:00 02/08/19 08:00 02/08/19 08:00 Intake and Output: 02/07/19 02/08/19 23:59 11:59 Intake Total 1414 114 Output Total 625 575 Balance 789 -461 - Medications Medications: Current Medications Acetaminophen (Tylenol 325mg Tab) 650 mg PO Q6 PRN PRN Reason: Fever >100.4 F Acetaminophen (Tylenol 325mg Tab) 650 mg PO Q6 PRN PRN Reason: Pain, Mild (1-3) Last Admin: 02/07/19 21:15 Dose: 650 mg Acyclovir (Zovirax 5% Oint) 1 applic EXT QID [facility] Last Admin: 02/08/19 08:48 Dose: 1 applic Albuterol Sulfate (Albuterol 0.083% Inhal Yajaira (2.5 Mg/3 Ml) Ud) 2.5 mg INH RQ4 PRN PRN Reason: Shortness of Breath Albuterol/Ipratropium (Duoneb 3 Mg/0.5 Mg (3 Ml) Ud) 3 ml INH RQID [facility] Last Admin: 02/08/19 08:26 Dose: 3 ml Atorvastatin Calcium (Lipitor) 20 mg PO HS [facility] Last Admin: 02/07/19 21:10 Dose: 20 mg Baclofen (Lioresal) 10 mg PO DAILY [facility] Last Admin: 02/08/19 08:44 Dose: 10 mg Docusate Sodium (Colace) 100 mg PO Q12 [facility] Last Admin: 02/08/19 08:44 Dose: 100 mg Famotidine (Pepcid) 20 mg PO BID [facility] Last Admin: 02/08/19 08:45 Dose: 20 mg Guaifenesin (Mucinex La) 600 mg PO Q12 [facility] Last Admin: 02/08/19 08:45 Dose: 600 mg Hydroxychloroquine Sulfate (Plaquenil) 200 mg PO DAILY [facility]; Protocol Last Admin: 02/08/19 08:46 Dose: 200 mg Azithromycin 500 mg/ Sodium (Chloride) 250 mls @ 250 mls/hr IVPB DAILY [facility]; Protocol Last Admin: 02/07/19 14:33 Dose: 250 mls/hr Vancomycin HCl 1 gm/ Sodium (Chloride) 250 mls @ 166.667 mls/hr IVPB Q12 [facility]; Protocol Last Admin: 02/08/19 08:46 Dose: 166.667 mls/hr Cefepime HCl 1 gm/ Sodium (Chloride) 100 mls @ 100 mls/hr IVPB Q12H [facility]; Protocol Last Admin: 02/07/19 22:47 Dose: 100 mls/hr Acyclovir 600 mg/ Sodium (Chloride) 100 mls @ 100 mls/hr IVPB Q8 [facility]; Protocol Last Admin: 02/08/19 08:51 Dose: 100 mls/hr Insulin Human Regular (Humulin R) 0 units SC ACHS [facility]; Protocol Last Admin: 02/08/19 07:36 Dose: Not Given Lactulose (Enulose) 20 gm PO DAILY PRN PRN Reason: Constipation Methylprednisolone (Solu-Medrol) 30 mg IVP Q12 [facility] Last Admin: 02/08/19 08:46 Dose: 30 mg Montelukast Sodium (Singulair) 10 mg PO HS [facility] Last Admin: 02/07/19 21:10 Dose: 10 mg Tamsulosin HCl (Flomax) 0.4 mg PO Q12 [facility] Last Admin: 02/08/19 08:44 Dose: 0.4 mg Temazepam (Restoril) 15 mg PO HS PRN PRN Reason: Insomnia Last Admin: 02/07/19 22:48 Dose: 15 mg - Labs Labs: 02/08/19 05:20 02/08/19 05:20 PT 9.7 Seconds (9.8-13.1) L 02/03/19 19:35 INR 0.9 02/03/19 19:35 APTT 35.9 Seconds (25.6-37.1) 02/03/19 19:35 Assessment and Plan (1) Pneumonia Status: Acute (2) Acute on chronic respiratory failure with hypoxemia Status: Acute (3) Hypercapnic respiratory failure Status: Chronic
[2019-02-08] MEDS: Azithromycin 500 MG in Sodium Chloride 0.9% 250 ML IVPB SCH (09:29)
--- NOTE | 2019-02-08 10:43 | CT ---
Date of service: 02/07/2019 PROCEDURE: CT Chest without contrast HISTORY: pneumonia COMPARISON: Plain radiograph from 02/06/2019. TECHNIQUE: Contiguous axial images were obtained through the chest without intravenous contrast enhancement. Sagittal and coronal reconstructions were performed. Radiation dose: Total exam DLP = 474.02 mGy-cm. This CT exam was performed using one or more of the following dose reduction techniques: Automated exposure control, adjustment of the mA and/or kV according to patient size, and/or use of iterative reconstruction technique. FINDINGS: LUNGS: There are low lung volumes. There is confluent airspace disease in both lower lobes, worse on the right. MEDIASTINUM: Unremarkable thoracic aorta. No aneurysm. There is moderate cardiomegaly. Main pulmonary artery unremarkable. No vascular congestion. No lymphadenopathy. There are aortic atherosclerotic calcifications present. PLEURA: Small pleural effusions, worse on the right. No pneumothorax. BONES: Diffuse bone demineralization and multilevel degenerative changes. Status post posterior spinal fixation in the midthoracic spine. There there are age indeterminate but likely chronic compression deformities in the mid and lower thoracic spine with vertebra plana in the midthoracic spine. UPPER ABDOMEN: Grossly unremarkable. OTHER FINDINGS: None. IMPRESSION: 1. Small pleural effusions, worse on the right and confluent airspace disease in the lower lobes which may represent atelectasis however superimposed pneumonia cannot be excluded. Follow-up is advised. 2. Moderate cardiomegaly. A preliminary report was provided by [employer].
[2019-02-08] MEDS: Cefepime 1 GM in Sodium Chloride 0.9% 100 ML IVPB SCH ×2 (11:00→21:17)
--- NOTE | 2019-02-08 11:12 | RAD ---
Date of service: 02/08/2019 HISTORY: pneumonia COMPARISON: 02/06/2019 TECHNIQUE: 1 view obtained. FINDINGS: LUNGS: Left basilar opacity. Atelectasis versus infiltrate. Right base obscured by pleural effusion. Cannot rule out right basilar consolidation. PLEURA: Small right pleural effusion. No definite left pleural effusion. No pneumothorax. CARDIOVASCULAR: Heart size grossly normal. Limited evaluation. There is atherosclerotic calcification of the thoracic aorta. Normal cardiac size. No pulmonary vascular congestion. OSSEOUS STRUCTURES: Thoracic spine fixation hardware. VISUALIZED UPPER ABDOMEN: Normal. OTHER FINDINGS: None. IMPRESSION: Small right pleural effusion. Left basilar infiltrate versus atelectasis.
--- NOTE | 2019-02-08 13:26 | CP.CCUPN ---
CCU Subjective - Physician Review Subjective (Free Text): Awake, responsive and able to converse easier this AM while off BiPAP and on nasal cannula, but lasted only 1 hr before developing tachyarrythmia manifest as possible MAT up to 160-170s not associated with any recurrent chest discomfort or hypotension, but he began developing more dyspnea and tachypneic, returned to BiPAP and improved. Afebrile now, no recurrent fever spikes, SBP in 100s, HR 90s, RR 24-28, SPO2 99% on 35% oxygen via BiPAP 20/04 and generated approx. 370 ml TV. ROS: No other pertinent negs or positives on 10+ system review PMSFH: All other Nursing and physician documentation reviewed to date; no new pertinent info noted relevant to current medical problems. EXAM- HEENT: no icterus, no gaze preference NECK: No JVD visible, supple, carotids equal upstroke bilat/no bruit CHEST: decreased BS at the bases, especially R base; no wheezes audible bilaterally. Large well healed scar across left anterior chest and midline. Another T spine scar over the mid-upper back. HEART: regular, distant, S1S2, no rubs or murmurs noted ABD: soft and obese, nontender, no guarding, no organomegaly, BS hypoactive. EXT: no leg edema, no calf tenderness or palpable cords, distal pulses intact and symmetrical. Bilateral arthritic hand deformities. NEURO: no gross focal deficits. SKIN: no rashes, warm and dry LABS: WBC= 1.5 HGB= 8.7 PLTs= 68K Na= 136 K= 4.9 CL= 98 HCO3= 38 BUN/Cr= 16/0.5 BS= 90 CT Chest results reviewed. No significant effusion manpreet on R to try thoracentesis. IMPRESSION / MAJOR PROBLEMS NOW: 1. Acute on chronic Hypercarbic Resp Failure 2 RLL effusion / Pneumonia; Atelectasis and Mucous plugging 2. Steroid-Dependent Rheumatoid Arthritis 3. Chronic Thrombocytopenia 4. h/o Thoracic Spinal fusion surgery PLAN: 1. After discussion with Pulm, final alternatives appear to come down to need for Trach. 2. Change in empiric abx regimen noted. He remains leukopenic. 3. Bloodwork otherwise has been stable. 4. Try to mobilize OOB to chair (unless not tolerated due to effort-dependent dyspnea) to see if lung function and expansion may improve in a better upright position.
--- NOTE | 2019-02-08 18:39 | CARD ---
APPROVED REPORT Date of service: 02/08/2019 EXAM: Two-dimensional and M-mode echocardiogram with Doppler and color Doppler. Other Information Quality : FairRhythm : NSR Technically limited study due to Poor Echo Windows INDICATION Congestive Heart Failure Surgery/Intervention Status/Post Aortic Valve Replacement: Bioprosthetic Aortic Valve AoV Peak Lznjocso427.3cm/sAoV VTI24.6cmAO Peak GR.6mmHg LVOT Peak Xeqdvbbp461.9cm/sLVOT VTI19.57cmAO Mean GR.3mmHg Mitral Valve MV E Vcmpumqt92.0cm/sMV DECEL [id number] A Axqnyofi94.1cm/s MV SAW58jcV/A ratio0.6MVA (PHT)2.77cm2 TDI E/Lateral E'0.0E/Medial E'0.0 LEFT VENTRICLE The left ventricle is normal size. There is normal left ventricular wall thickness. The left ventricular systolic function is low normal. The estimated ejection fraction is 50-55% No regional wall motion abnormalities noted.. Transmitral Doppler flow pattern is Grade I-abnormal relaxation pattern. No left ventricle thrombus noted on this study. There is no ventricular septal defect visualized. There is no left ventricular aneurysm. There is no mass noted in the left ventricle. RIGHT VENTRICLE The right ventricle is normal size. There is normal right ventricular wall thickness. The right ventricular systolic function is normal. ATRIA The left atrium is mildly dilated. The right atrium size is normal. The interatrial septum is intact with no evidence for an atrial septal defect. AORTIC VALVE The aortic valve is not well visualized. Has hx of AVR. No aortic regurgitation is present. There is no aortic valvular stenosis. MITRAL VALVE The mitral valve is normal in structure. There is no mitral valve stenosis. There is trivial mitral valve regurgitation noted. TRICUSPID VALVE The tricuspid valve is normal in structure. There is no tricuspid valve regurgitation noted. PULMONIC VALVE The pulmonary valve is normal in structure. There is no pulmonic valvular regurgitation. GREAT VESSELS The aortic root is normal in size. The IVC is not well visualized. PERICARDIAL EFFUSION There is no pericardial effusion. There is no pleural effusion. <Conclusion> Technically difficult study. The left ventricular systolic function is low normal. The estimated ejection fraction is 50-55%. Transmitral Doppler flow pattern is Grade I-abnormal relaxation pattern. The left atrium is mildly dilated. There is trivial mitral valve regurgitation noted. There is no signiifcant tricuspid valve regurgitation noted.
--- NOTE | 2019-02-08 20:06 | PN ---
DATE: 02/08/2019 SUBJECTIVE: The patient is seen today, on 02/08/2019. He is still on BiPAP and every time the BiPAP is discontinued, the patient's heart rate goes up to 130-140. PHYSICAL EXAMINATION: VITAL SIGNS: Blood pressure 99/66, temperature 97.4, respiratory rate 17 and pulse 72. HEENT: Pupils are equal and reactive to light. Normal-appearing mucosa of the conjunctivae, oropharynx, and nasal membrane mucosa. NECK: Supple. No JVD. No carotid bruits. No lymph node. No thyromegaly. CHEST AND LUNGS: Bilateral symmetrical expansion. Good air exchange. Bilateral rhonchi. CARDIOVASCULAR: PMI not localized. S1 and S2. No additional sounds. ABDOMEN: Normoactive bowel sounds. No tenderness. No organomegaly. No masses. EXTREMITIES: No cyanosis. No clubbing. No edema. [employer]: Alert, awake, and oriented x2. Moves all extremities equally. ASSESSMENT: Pneumonia. Exacerbation of chronic obstructive pulmonary disease with hypercapnic respiratory failure, coronary artery disease, hypertension, advanced rheumatoid arthritis. PLAN: Follow Cardiology and Pulmonary recommendations. Wean off BiPAP as tolerated. Michaela Wood MD
--- NOTE | 2019-02-08 20:47 | PN ---
DATE: 02/08/2019 SUBJECTIVE: The patient's left-sided chest pain has improved. However, he becomes significantly tachycardic if he is taken off BiPAP. PHYSICAL EXAMINATION: VITAL SIGNS: Blood pressure 99/66, heart rate 98, temperature 97.3, respirations 18. HEENT: Pale conjunctivae. CHEST: Bilateral rhonchi. HEART: S1 and S2. Regular. EXTREMITIES: No edema. LABORATORY DATA: Today's hemoglobin and hematocrit are 8.7 and 27.4. White count 1.5. Platelet count 68,000. Today's SMA-7: Sodium 136, potassium 4.9, chloride 98, CO2 of 38, glucose 90, BUN 16, creatinine 0.5. Blood cultures negative after [address] scan performed yesterday without contrast revealed small pleural effusion, worse on the right and confluent airspace disease in the lower lobes, which may represent atelectasis; however, superimposed pneumonia cannot be excluded. Moderate cardiomegaly. ASSESSMENT: 1. Exacerbation of chronic obstructive lung disease. 2. Bilateral pneumonia and pleural effusion. 3. Coronary artery disease, status post coronary artery bypass surgery. 4. Worsening pancytopenia. 5. Rheumatoid arthritis. 6. Herpes zoster involving the anterior abdominal wall. RECOMMENDATIONS: Continue current intravenous acyclovir as well as local acyclovir cream. Continue albuterol inhaler, continue IV Zithromax 500 mg daily, IV cefepime at 100 mg every 12 hours, Flomax 0.4 mg twice a day, Lipitor 20 mg once a day, vancomycin 1 g intravenously q.12 hours. In view of worsening anemia and thrombocytopenia, I will hold on any antiplatelet or anticoagulation therapy. Geo Whitmore MD
[2019-02-09 05:30] LABS: MEAN CELL VOLUME 100.8 fl (80.0-94.0); MEAN CORPUSCULAR HGB CONC 31.8 g/dL (33.0-37.0); RBC 2.79 Mil/uL (4.40-5.90); RED CELL DISTRIBUTION WIDTH 18.1 % (11.5-14.5)
[2019-02-09 05:39] LABS: BLOOD UREA NITROGEN 16 mg/dl (9-20); CALCIUM 8.6 mg/dL (8.4-10.2); GFR NON-AFRICAN AMERICAN > 60
[2019-02-09] MEDS: Albuterol-Ipratrop 3 mg / 0.5 (3 ml) UD INH SCH ×4 (07:21→19:10)
[2019-02-09] MEDS: Insulin Regular 100 units/ml SC SCH ×4 (08:36→22:00)
[2019-02-09] MEDS: guaiFENesin 600 mg ER Tab PO SCH ×2 (08:36→21:32)
[2019-02-09] MEDS: MethylPREDNISolone 40 mg Vial IVP SCH ×2 (08:37→21:33)
[2019-02-09] MEDS: Azithromycin 500 MG in Sodium Chloride 0.9% 250 ML IVPB SCH (08:38)
[2019-02-09] MEDS: Acyclovir 5% OINT 15 APPLIC/15 GM EXT SCH ×4 (08:39→21:34)
--- NOTE | 2019-02-09 08:59 | CP.PCM.PN ---
Subjective - Date & Time of Evaluation Date of Evaluation: 02/09/19 Time of Evaluation: 08:58 - Subjective Subjective: Seen on rounds in the ICU. Presently switched to nasal canula at 4 LPM. Heart rate increases significantly when taken off BiPAP. He remains comfortable w/o complaint of SOB despite the above. He still has a congested cough when coached, non-productive. Not complaining of chest wall pain this morning. No chest x-ray this morning. Tachycardic 120 (sinus). SpO2 97% presently. Has remained afebrile. Respiratory muscle recruitment noted. No cyanosis, no IC retractions. No dullness on percussion of anterior chest wall. Breath sounds present bilaterally, bronchial character on the left. Medium rales posteriorly in the LLL. No audible wheezing. Continue use of NPPV with BiPAP mask, increased EPAP and decreased FiO2. Continue treatment for COPD exacerbation and pneumonia. Discussed possibility of tracheostomy if condition does not improve. Patient vehemently declines further discussion of tracheostomy. Objective - Vital Signs/Intake and Output Vital Signs (last 24 hours): Temp Pulse Resp BP Pulse Ox 97.8 F 80 25 H 115/68 99 02/09/19 04:00 02/09/19 06:00 02/09/19 06:00 02/09/19 06:00 02/09/19 06:00 Intake and Output: 02/08/19 02/09/19 23:59 11:59 Intake Total 910 150 Output Total 100 200 Balance 810 -50 - Medications Medications: Current Medications Acetaminophen (Tylenol 325mg Tab) 650 mg PO Q6 PRN PRN Reason: Fever >100.4 F Acetaminophen (Tylenol 325mg Tab) 650 mg PO Q6 PRN PRN Reason: Pain, Mild (1-3) Last Admin: 02/09/19 08:33 Dose: 650 mg Acetazolamide (Diamox 250 Mg Tab) 250 mg PO BID [facility] Acyclovir (Zovirax 5% Oint) 1 applic EXT QID [facility] Last Admin: 02/09/19 08:39 Dose: Not Given Albuterol Sulfate (Albuterol 0.083% Inhal Yajaira (2.5 Mg/3 Ml) Ud) 2.5 mg INH RQ4 PRN PRN Reason: Shortness of Breath Albuterol/Ipratropium (Duoneb 3 Mg/0.5 Mg (3 Ml) Ud) 3 ml INH RQID [facility] Last Admin: 02/09/19 07:21 Dose: 3 ml Atorvastatin Calcium (Lipitor) 20 mg PO HS [facility] Last Admin: 02/08/19 21:14 Dose: 20 mg Baclofen (Lioresal) 10 mg PO DAILY [facility] Last Admin: 02/09/19 08:36 Dose: 10 mg Docusate Sodium (Colace) 100 mg PO Q12 [facility] Last Admin: 02/09/19 08:35 Dose: 100 mg Famotidine (Pepcid) 20 mg PO BID [facility] Last Admin: 02/09/19 08:37 Dose: 20 mg Guaifenesin (Mucinex La) 600 mg PO Q12 [facility] Last Admin: 02/09/19 08:36 Dose: 600 mg Hydroxychloroquine Sulfate (Plaquenil) 200 mg PO DAILY [facility]; Protocol Last Admin: 02/08/19 08:46 Dose: 200 mg Azithromycin 500 mg/ Sodium (Chloride) 250 mls @ 250 mls/hr IVPB DAILY [facility]; Protocol Last Admin: 02/09/19 08:38 Dose: 250 mls/hr Vancomycin HCl 1 gm/ Sodium (Chloride) 250 mls @ 166.667 mls/hr IVPB Q12 [facility]; Protocol Last Admin: 02/09/19 08:38 Dose: 166.667 mls/hr Cefepime HCl 1 gm/ Sodium (Chloride) 100 mls @ 100 mls/hr IVPB Q12H [facility]; Protocol Last Admin: 02/08/19 21:17 Dose: 100 mls/hr Acyclovir 600 mg/ Sodium (Chloride) 100 mls @ 100 mls/hr IVPB Q8 [facility]; Protocol Last Admin: 02/09/19 08:39 Dose: 100 mls/hr Insulin Human Regular (Humulin R) 0 units SC ACHS [facility]; Protocol Last Admin: 02/09/19 08:36 Dose: Not Given Lactulose (Enulose) 20 gm PO DAILY PRN PRN Reason: Constipation Methylprednisolone (Solu-Medrol) 30 mg IVP Q12 [facility] Last Admin: 02/09/19 08:37 Dose: 30 mg Montelukast Sodium (Singulair) 10 mg PO HS [facility] Last Admin: 02/08/19 21:14 Dose: 10 mg Tamsulosin HCl (Flomax) 0.4 mg PO Q12 [facility] Last Admin: 02/09/19 08:35 Dose: 0.4 mg Temazepam (Restoril) 15 mg PO HS PRN PRN Reason: Insomnia Last Admin: 02/08/19 21:19 Dose: 15 mg - Labs Labs: 02/09/19 05:10 02/09/19 05:12 PT 9.7 Seconds (9.8-13.1) L 02/03/19 19:35 INR 0.9 02/03/19 19:35 APTT 35.9 Seconds (25.6-37.1) 02/03/19 19:35 Assessment and Plan (1) Pneumonia Status: Acute (2) Acute on chronic respiratory failure with hypoxemia Status: Acute (3) Hypercapnic respiratory failure Status: Chronic
--- NOTE | 2019-02-09 11:08 | CP.CCUPN ---
CCU Subjective - Physician Review Subjective (Free Text): Appears well for short periods of time when given a reprieve off BiPAP, but will eventually decompensate after approx. 30 minutes, and requires BiPAP again. He denies any increase in the frequency of chest discomfort. Tachycardia with coincident onset at the time of deterioration requiring BiPAP is very apparent. Afebrile now, no recurrent fever spikes, SBP in 100s, HR 90s, RR 24-28, SPO2 99% on 35% oxygen via BiPAP 20/04. ROS: No other pertinent negs or positives on 10+ system review PMSFH: All other Nursing and physician documentation reviewed to date; no new pertinent info noted relevant to current medical problems. EXAM- HEENT: no icterus, no gaze preference NECK: No JVD visible, supple, carotids equal upstroke bilat/no bruit CHEST: decreased BS at the bases, especially R base; no wheezes audible bilaterally. Large well healed scar across left anterior chest and midline. Another T spine scar over the mid-upper back. HEART: regular, distant, S1S2, no rubs or murmurs noted ABD: soft and obese, nontender, no guarding, no organomegaly, BS hypoactive. EXT: no leg edema, no calf tenderness or palpable cords, distal pulses intact and symmetrical. Bilateral arthritic hand deformities. NEURO: no gross focal deficits. SKIN: no rashes, warm and dry LABS: WBC= 2.0 HGB= 9.0 PLTs= 68K Na= 137 K= 4.6 CL= 96 HCO3= 43 BUN/Cr= 16/0.6 BS= 106 IMPRESSION / MAJOR PROBLEMS NOW: 1. Acute on chronic Hypercarbic Resp Failure 2 RLL effusion / Pneumonia; Atelectasis and Mucous plugging 2. Steroid-Dependent Rheumatoid Arthritis 3. Chronic Thrombocytopenia 4. h/o Thoracic Spinal fusion surgery PLAN: 1. Continue to mobilize OOB as tolerated. 2. Acetazolamide. 3. Holding off Plaquenil for now; and follow WBCs, Platelets. Increase steroids if joint symptoms worsen. 4. Maxipime. 5. PT/OT orders placed.
[2019-02-09] MEDS: Cefepime 1 GM in Sodium Chloride 0.9% 100 ML IVPB SCH ×2 (11:36→21:32)
--- NOTE | 2019-02-09 12:07 | CP.PCM.CON ---
History of Present Illness - History of Present Illness History of Present Illness: 73 year old male with a history of CAD s/p CABG, HTN, HL, pancreatic mass, COPD rheumatoid arthritis on immunosuppression, admitted with sepsis secondary to pneumonia, and pancytopenia. The patient reports to cough and fever for several days. He admits to increasing weakness and fatigue. He is known to me from past hospitalizations with low blood counts. At the time his cytopenias were related to immunosuppression but an underlying bone marrow pathology was a possibility. He did well with holding his immunosuppression intermittently which led to improvement in his cytopenias. He currently is on bipap, antibiotics, and steroids and notes to feeling better. Past medical history: CAD s/p CABG, HTN, HL, rheumatoid arthritis Past surgical history: Back surgery and CABG Family history: Denies hematologic and oncologic problems Social history: Former tobacco use, denies alcohol. Allergies: Penicillins Review of systems: All remaining review of systems including HEENT, cardiovascular, respiratory, gastrointestinal, genitourinary, musculoskeletal, dermatologic, neurologic, and psychiatric are negative unless mentioned in the HPI. Past Patient History - Infectious Disease Hx of Infectious Diseases: None - Past Medical History & Family History Past Medical History?: Yes - Past Social History Smoking Status: Former Smoker Chewing Tobacco Use: No Cigar Use: Yes Alcohol: None Drugs: Denies - CARDIAC Hx Congestive Heart Failure: No Hx Hypercholesterolemia: Yes Hx Hypertension: Yes - PULMONARY Hx Asthma: Yes Hx Bronchitis: Yes Hx Chronic Obstructive Pulmonary Disease (COPD): Yes Hx Pneumonia: Yes Hx Sleep Apnea: Yes - NEUROLOGICAL Hx Alzheimer's Disease: Yes Hx Dementia: Yes Hx Seizures: No - HEENT Hx HEENT Problems: No - RENAL Hx Chronic Kidney Disease: No - ENDOCRINE/METABOLIC Hx Diabetes Mellitus Type 2: Yes - HEMATOLOGICAL/ONCOLOGICAL Hx Anemia: Yes Hx Human Immunodeficiency Virus (HIV): No - INTEGUMENTARY Hx Dermatological Problems: No - MUSCULOSKELETAL/RHEUMATOLOGICAL Hx Arthritis: Yes (BACK) Hx Back Pain: Yes Hx Fractures: Yes (Hip) Hx Rheumatoid Arthritis: Yes - GASTROINTESTINAL Hx Gastrointestinal Disorders: No - GENITOURINARY/GYNECOLOGICAL Hx Genitourinary Disorders: No Hx Sexually Transmitted Disorders: No - PSYCHIATRIC Hx Psychophysiologic Disorder: No Hx Substance Use: No - SURGICAL HISTORY Hx Coronary Artery Bypass Graft: Yes (1999) Hx Coronary Stent: Yes Hx Orthopedic Surgery: Yes - ANESTHESIA Hx Anesthesia: Yes Hx Anesthesia Reactions: No Hx Malignant Hyperthermia: No Meds Allergies/Adverse Reactions: Allergies Allergy/AdvReac Type Severity Reaction Status Date / Time Penicillins Allergy Unknown RASH Verified 02/06/19 12:56 - Medications Medications: Current Medications Acetaminophen (Tylenol 325mg Tab) 650 mg PO Q6 PRN PRN Reason: Fever >100.4 F Acetaminophen (Tylenol 325mg Tab) 650 mg PO Q6 PRN PRN Reason: Pain, Mild (1-3) Last Admin: 02/09/19 08:33 Dose: 650 mg Acetazolamide (Diamox 250 Mg Tab) 250 mg PO BID [facility] Last Admin: 02/09/19 11:35 Dose: 250 mg Acyclovir (Zovirax 5% Oint) 1 applic EXT QID [facility] Last Admin: 02/09/19 08:39 Dose: Not Given Albuterol Sulfate (Albuterol 0.083% Inhal Yajaira (2.5 Mg/3 Ml) Ud) 2.5 mg INH RQ4 PRN PRN Reason: Shortness of Breath Albuterol/Ipratropium (Duoneb 3 Mg/0.5 Mg (3 Ml) Ud) 3 ml INH RQID [facility] Last Admin: 02/09/19 11:37 Dose: 3 ml Atorvastatin Calcium (Lipitor) 20 mg PO HS [facility] Last Admin: 02/08/19 21:14 Dose: 20 mg Baclofen (Lioresal) 10 mg PO DAILY [facility] Last Admin: 02/09/19 08:36 Dose: 10 mg Docusate Sodium (Colace) 100 mg PO Q12 [facility] Last Admin: 02/09/19 08:35 Dose: 100 mg Famotidine (Pepcid) 20 mg PO BID [facility] Last Admin: 02/09/19 08:37 Dose: 20 mg Guaifenesin (Mucinex La) 600 mg PO Q12 [facility] Last Admin: 02/09/19 08:36 Dose: 600 mg Hydroxychloroquine Sulfate (Plaquenil) 200 mg PO DAILY [facility]; Protocol Last Admin: 02/08/19 08:46 Dose: 200 mg Cefepime HCl 1 gm/ Sodium (Chloride) 100 mls @ 100 mls/hr IVPB Q12H [facility]; Protocol Last Admin: 02/09/19 11:36 Dose: 100 mls/hr Acyclovir 600 mg/ Sodium (Chloride) 100 mls @ 100 mls/hr IVPB Q8 [facility]; Protocol Last Admin: 02/09/19 08:39 Dose: 100 mls/hr Insulin Human Regular (Humulin R) 0 units SC ACHS [facility]; Protocol Last Admin: 02/09/19 11:36 Dose: Not Given Lactulose (Enulose) 20 gm PO DAILY PRN PRN Reason: Constipation Methylprednisolone (Solu-Medrol) 30 mg IVP Q12 [facility] Last Admin: 02/09/19 08:37 Dose: 30 mg Montelukast Sodium (Singulair) 10 mg PO HS [facility] Last Admin: 02/08/19 21:14 Dose: 10 mg Tamsulosin HCl (Flomax) 0.4 mg PO Q12 [facility] Last Admin: 02/09/19 08:35 Dose: 0.4 mg Temazepam (Restoril) 15 mg PO HS PRN PRN Reason: Insomnia Last Admin: 02/08/19 21:19 Dose: 15 mg Physical Exam - Head Exam Head Exam: ATRAUMATIC - Eye Exam Eye Exam: Normal appearance - ENT Exam ENT Exam: Mucous Membranes Dry - Respiratory Exam Respiratory Exam: Decreased Breath Sounds - Cardiovascular Exam Cardiovascular Exam: +S1, +S2 - GI/Abdominal Exam GI & Abdominal Exam: Normal Bowel Sounds - Neurological Exam Neurological exam: Oriented x3 - Psychiatric Exam Psychiatric exam: Normal Affect, Normal Mood - Skin Skin Exam: Warm Results - Vital Signs Recent Vital Signs: Last Vital Signs Temp 97.5 F L 02/09/19 08:00 Pulse 72 02/09/19 11:37 Resp 20 02/09/19 10:00 BP 101/67 02/09/19 10:00 Pulse Ox 100 02/09/19 10:00 - Labs Result Diagrams: 02/09/19 05:10 02/09/19 05:12 Labs: Laboratory Results - last 24 hr 02/08/19 02/08/19 02/09/19 17:11 21:33 05:10 WBC 2.0 L* RBC 2.79 L Hgb 9.0 L Hct 28.2 L MCV 100.8 H MCH 32.0 H MCHC 31.8 L RDW 18.1 H Plt Count 68 L Sodium Potassium Chloride Carbon Dioxide Anion Gap BUN Creatinine Est GFR ( Amer) Est GFR (Non-Af Amer) POC Glucose (mg/dL) 121 H 115 H Random Glucose Calcium 02/09/19 02/09/19 05:12 05:58 WBC RBC Hgb Hct MCV MCH MCHC RDW Plt Count Sodium 137 Potassium 4.6 Chloride 96 L Carbon Dioxide 43 H* Anion Gap 3 L BUN 16 Creatinine 0.5 L Est GFR ( Amer) > 60 Est GFR (Non-Af Amer) > 60 POC Glucose (mg/dL) 111 H Random Glucose 106 Calcium 8.6 Assessment & Plan (1) Pancytopenia Assessment and Plan: exacerbated by acute illness, polypharmacy prior improvement in cytopenias when holding hydroxychloroquine; will hold will check iron/b12/folate stores transfusion support PRN no significant neutropenia Status: Acute (2) Pancreatic mass Assessment and Plan: prior elevation in chromogranin A level; will repeat ?neuroendocrine tumor not a good surgical candidate, will cont. to monitor Thank you for this interesting consult Status: Acute
--- NOTE | 2019-02-09 17:36 | PQF ---
PROVIDER RESPONSE TEXT: Acute diastolic heart failure REVIEWER QUERY TEXT: CHF Acuity and Type Mild congestive heart failure on x-ray is documented in the cardiology consult. Please document the 1) type and 2) acuity (includes probable or suspected) Such as: 1) Type: -- Systolic -- Diastolic -- Combined -- Other, please specify 2) Acuity: -- Acute -- Chronic -- Acute on chronic -- Other, please specify Also please document the underlying cause of the CHF (includes probable or suspected) The patient's Clinical Indicators include: PMH: COPD, CAD, CABG, RA Pro BNP 1360. ECHO: Technically difficult study. The left ventricular systolic function is low normal. The estimated ejection fraction is 50-55%. Transmitral Doppler flow pattern is Grade I-abnormal relax ation pattern. The left atrium is mildly dilated. There is trivial mitral valve regurgitation noted. There is no significant tricuspid valve regurgitation noted. Query created by: Payal Patel on 02/09/2019 1:11 PM Electronically signed by: Geo Whitmore MD 02/09/2019 5:32 PM
--- NOTE | 2019-02-09 21:01 | PN ---
DATE: 02/09/2019 SUBJECTIVE: The patient is seen today 02/09/2019. He is still on BiPAP and could not wean him off BiPAP as he started to become short of breath and tachycardic. PHYSICAL EXAMINATION: VITAL SIGNS: Blood pressure 118/70, temperature 97.4, respiratory rate 25, pulse 114. HEENT: Pupils equal, reactive to light. Normal-appearing mucosa of the conjunctivae, oropharynx and nasal membrane mucosa. NECK: Supple. No JVD. No carotid bruit. No lymph node. No thyromegaly. CHEST AND LUNGS: Bilateral symmetrical expansion. Good air exchange. No rales. There are scattered rhonchi bilaterally. CARDIOVASCULAR: PMI not localized. S1, S2. No additional sounds. ABDOMEN: Normoactive bowel sounds. No tenderness. No organomegaly. No masses. EXTREMITIES: No cyanosis, no clubbing, no edema. CENTRAL NERVOUS SYSTEM: Alert, awake, oriented x2. No neurological deficit could be appreciated. ASSESSMENT: 1. Exacerbation of chronic obstructive pulmonary disease. 2. Pneumonia. 3. Hypercapnic respiratory failure. PLAN: Continue BiPAP and wean as tolerated. Continue current IV antibiotics and follow Pulmonary and Cardiology recommendations. Guarded prognosis. Michaela Wood MD
--- NOTE | 2019-02-09 23:21 | PN ---
DATE: 02/09/2019 SUBJECTIVE: The patient is currently on BiPAP. Awaiting high-flow nasal O2. He denies any chest pain. PHYSICAL EXAMINATION: VITAL SIGNS: Blood pressure 125/66, heart rate 73, temperature 97.4, respirations 15. HEENT: Pale conjunctivae. CHEST: Diffuse bilateral rhonchi. HEART: S1 and S2, regular. EXTREMITIES: No edema. LABORATORY DATA: Today's hemoglobin and hematocrit 9 and 28.2, white count 2, platelet count 68,000. Today's SMA-7: Sodium 137, potassium 4.6, chloride 96, CO2 of 43, glucose 106, BUN 16, creatinine 0.5. Echocardiographic study performed at the bedside revealed normal left ventricular systolic function, grade I abnormal relaxation pattern, mildly dilated left atrium, trivial mitral regurgitation. ASSESSMENT: 1. Pneumonia. 2. Chronic obstructive lung disease. 3. Atypical chest pain. 4. Physiologic sinus tachycardia. 5. Pancytopenia. 6. Rheumatoid arthritis. 7. Herpes zoster involving the anterior abdominal wall. RECOMMENDATIONS: Continue current intravenous and local acyclovir. Continue cefepime at 1 g every 12 hours. Diamox 250 mg twice a day was started today, Lipitor 20 mg once a day, Mucinex LA 600 mg twice a day, Restoril 5 mg at bedtime. The patient can be transferred to telemetry or medical surgical floor from the cardiac point of view. Geo Whitmore MD
[2019-02-10 06:32] LABS: BLOOD UREA NITROGEN 13 mg/dl (9-20); CALCIUM 8.7 mg/dL (8.4-10.2); GFR NON-AFRICAN AMERICAN > 60
[2019-02-10] MEDS: Insulin Regular 100 units/ml SC SCH ×4 (07:13→23:50)
[2019-02-10] MEDS: Albuterol-Ipratrop 3 mg / 0.5 (3 ml) UD INH SCH ×4 (07:28→20:49)
[2019-02-10] MEDS: guaiFENesin 600 mg ER Tab PO SCH ×2 (09:03→20:30)
[2019-02-10] MEDS: MethylPREDNISolone 40 mg Vial IVP SCH ×2 (09:04→20:32)
[2019-02-10] MEDS: Acyclovir 5% OINT 15 APPLIC/15 GM EXT SCH ×4 (09:06→22:32)
--- NOTE | 2019-02-10 11:03 | PQF ---
PROVIDER RESPONSE TEXT: Admitted through the ER with bilateral pneumonia and fever, leukopenia, immune compromised because of chronic illness and treatment for autoimmune disease. Has also been hospitalized less than 90 days p rior to this admission. Likely HCAP bacterial pneumonia in immune compromised host. REVIEWER QUERY TEXT: Pneumonia Specificity Bilateral Bronchopneumonia is documented in the Medical Record. Would you be able to further clarify the pneumonia. Documentation to keep HCAP as a consideration for Rx. Such as: Type: -- Aspiration pneumonia (please also specify the aspirate) -- Bacterial (please document suspected or probable organism) -- Interstitial pneumonia -- Organizing pneumonia / BOOP -- Pneumonia with influenza, jenn flu, or H1N1 flu -- RSV -- Tuberculosis, pulmonary -- Viral -- Other, please specify The patient's Clinical Indicators include: 02/04 CXR: Bilateral lower lobe atelectasis and or infiltrates and bilateral effusions. Slightly impro francis pulmonary venous congestive changes. TEMP 102.1 and WBC 4.6 on admission. Sputum CS Normal Angelica. S< pneumonia antigen: Negative Rx: IVAB Query created by: Payal Patel on 02/09/2019 1:02 PM Electronically signed by: New Amaya MD 02/10/2019 11:00 AM
--- NOTE | 2019-02-10 13:02 | CP.PCM.PN ---
Subjective - Date & Time of Evaluation Date of Evaluation: 02/10/19 Time of Evaluation: 12:56 - Subjective Subjective: Transferred to telemetry. Did not tolerate high flow nasal canula yesterday. Remains on BiPAP mask ventilation with good oxygenation. FiO2 reduced slightly to 28%, TCO2 slightly decreased this morning. He appears comfortable at rest, supine in bed. Awake, alert and cooperative. Answers all questioning appropriately. Respiratory recruitment w/o IC retractions persists. Breath sounds do appear slightly improved today. No audible wheezes, + medium rales in LLs, no bronchial breathing. Chest x-ray this AM shows some slight improvement in aeration/expansion. Bilateral lower lobe infiltrates persis. Will maintain present regimen for now. He has made it clear yesterday that trcheostomy is not an option. Standard nasal canula as tolerated for mealtimes at 5 LPM with humidification. Objective - Vital Signs/Intake and Output Vital Signs (last 24 hours): Temp Pulse Resp BP Pulse Ox 97.6 F 67 18 119/61 100 02/10/19 12:08 02/10/19 12:08 02/10/19 12:08 02/10/19 12:08 02/10/19 12:08 - Medications Medications: Current Medications Acetaminophen (Tylenol 325mg Tab) 650 mg PO Q6 PRN PRN Reason: Fever >100.4 F Acetaminophen (Tylenol 325mg Tab) 650 mg PO Q6 PRN PRN Reason: Pain, Mild (1-3) Last Admin: 02/10/19 07:03 Dose: 650 mg Acetazolamide (Diamox 250 Mg Tab) 250 mg PO BID [facility] Last Admin: 02/10/19 09:01 Dose: 250 mg Acyclovir (Zovirax 5% Oint) 1 applic EXT QID [facility] Last Admin: 02/10/19 09:06 Dose: 1 applic Albuterol Sulfate (Albuterol 0.083% Inhal Yajaira (2.5 Mg/3 Ml) Ud) 2.5 mg INH RQ4 PRN PRN Reason: Shortness of Breath Albuterol/Ipratropium (Duoneb 3 Mg/0.5 Mg (3 Ml) Ud) 3 ml INH RQID [facility] Last Admin: 02/10/19 11:23 Dose: 3 ml Atorvastatin Calcium (Lipitor) 20 mg PO HS [facility] Last Admin: 02/09/19 21:32 Dose: 20 mg Baclofen (Lioresal) 10 mg PO DAILY [facility] Last Admin: 02/10/19 09:03 Dose: 10 mg Docusate Sodium (Colace) 100 mg PO Q12 [facility] Last Admin: 02/10/19 09:01 Dose: 100 mg Famotidine (Pepcid) 20 mg PO BID [facility] Last Admin: 02/10/19 09:04 Dose: 20 mg Guaifenesin (Mucinex La) 600 mg PO Q12 [facility] Last Admin: 02/10/19 09:03 Dose: 600 mg Hydroxychloroquine Sulfate (Plaquenil) 200 mg PO DAILY [facility]; Protocol Last Admin: 02/08/19 08:46 Dose: 200 mg Insulin Human Regular (Humulin R) 0 units SC [facility]; Protocol Last Admin: 02/10/19 07:13 Dose: Not Given Lactulose (Enulose) 20 gm PO DAILY PRN PRN Reason: Constipation Methylprednisolone (Solu-Medrol) 30 mg IVP Q12 [facility] Last Admin: 02/10/19 09:04 Dose: 30 mg Montelukast Sodium (Singulair) 10 mg PO HS [facility] Last Admin: 02/09/19 21:32 Dose: 10 mg Tamsulosin HCl (Flomax) 0.4 mg PO Q12 [facility] Last Admin: 02/10/19 09:02 Dose: 0.4 mg Temazepam (Restoril) 15 mg PO HS PRN PRN Reason: Insomnia Last Admin: 02/09/19 21:31 Dose: 15 mg - Labs Labs: 02/09/19 05:10 02/10/19 04:30 PT 9.7 Seconds (9.8-13.1) L 02/03/19 19:35 INR 0.9 02/03/19 19:35 APTT 35.9 Seconds (25.6-37.1) 02/03/19 19:35 Assessment and Plan (1) Pneumonia Status: Acute (2) Acute on chronic respiratory failure with hypoxemia Status: Acute (3) Hypercapnic respiratory failure Status: Chronic
[2019-02-10 13:06] LABS: FOLATE 7.4 ng/mL
--- NOTE | 2019-02-10 16:42 | RAD ---
Date of service: 02/10/2019 HISTORY: pneumonia COMPARISON: Portable chest 02/08/2019. TECHNIQUE: 1 view obtained. FINDINGS: LUNGS: Improved aeration is seen the left base with diminished patchy density present. PLEURA: No pneumothorax bilaterally. No left pleural effusion. Chronic right pleural effusion or pleural thickening persists with persistent underlying airspace disease not excluded at the right base. CARDIOVASCULAR: No aortic atherosclerotic calcification present. Prominent cardiac silhouette appears stable. No pulmonary vascular congestion. OSSEOUS STRUCTURES: Posterior upper thoracic spinal fusion hardware reiterated. VISUALIZED UPPER ABDOMEN: Normal. OTHER FINDINGS: None. IMPRESSION: Improved aeration is noted at the left base with limited fibrotic changes remaining. Chronic right pleural effusion or pleural thickening is reiterated at the right mid inferior lung zones with underlying airspace disease not excluded, also on a chronic basis. Prominent cardiac silhouette unchanged. No pulmonary vascular congestion appreciated.
--- NOTE | 2019-02-10 18:37 | PCM.RRT ---
<Sarah Barrios - Last Filed: 02/10/19 19:57> [employer] Nurse Assessment - Situation [employer] Responder Arrival Time: 18:27 Location: TELEMETRY Room Number: 415-1 [employer] Reason for Call: Chest Pain, Tachycardia [employer] Called By: RN - IV IV Inserted during [employer]?: Yes IV Fluids Initiated During [employer]?: NORMAL SALINE BOLUS OF 250 New IV Insertion Tolerance:: Poor - Respiratory Oxygen Delivery Method: BiPAP Received Nebulizer Treatments: No Was the Patient Ventilated with Bag/Mask 100% O2?: No Secretions Suctioned?: No Was the Patient Intubated?: No Was the Patient Placed on a Ventilator?: No - Ventilator Settings FIO2 (% Oxygen): 28 - Medication Medications Administered During [employer]: Cardizem 5mg IVP @ 1840. Digoxin 0.25mg IVP x1 @ 1855 - Diagnostic Test Ordered EKG: Yes (A FLUTTER) Chest X-Ray: No CT Scan: No - Stat Labs Ordered [employer] Stat Labs Ordered: CBC, ABG [employer] Other Labs Ordered: CBC, ABG, MG, TROPONIN, TSH, T4 CPR started during [employer]?: No - Evon Coma Scale Coma Scale Eye Opening: Spontaneous Coma Scale Motor: Obeys Commands Movement Coma Scale Verbal: Oriented Coma Scale Total: 15 - Time [employer] Ended Time [employer] Ended: 19:01 - Vital Signs at end of [employer] Vital Signs at end of [employer]: BP: 106/69; HR: 110's; O2 saturation: on BiPaP: 96-97%. - Recommendations [employer] Level of Care Recommendations: Remain in current setting Notifications: Consultations (Dr. Mccarty) I.Reason for [employer] - A) Acute Change in Patient: (Select all that apply): Staff member or family is worried about patient (Tachycardia in 130's) Subjective: 73 yo male with history of CAD admitted for COPD and pneumonia - [employer] called by RN for tachycardia in 130's. Patient is alert and oriented. Reports left sided non-radiating chest pain and palpitations. V/S: BP: 96/64 ; HR: 159 ; O2 saturation on Bipap: 98%. Lungs: Clear bilaterally. Heart: S1 and S2. Tachycardic Extremities: Lower extremity pitting edema bilaterally +2. Interventions: Labs: CBC, CMP, MG, TROPONINS, TSH, T4, ABG EKG: Atrial flutter Medications: - Cardizem 5mg IVP given at 1840 which resulted in a decrease in HR from 150's to 110's- patient subjectively felt better. - Repeat BP: 83/53 HR: 113 - 250 Normal saline bolus @ 1840 - New IV had to be inserted @ 1850 in the right forearm - HR increased again to 130's @ 1845 - Digoxin 0.25 mg given @ 1855 - HR 112-114's - HR maintained in the 90's-110's. - Neurological Status (Select all that apply): Alert, Responsive, Oriented, Verbal, Follows Commands - Respiratory Oxygen Delivery Method: BiPAP @% - Constitutional Appears: In Acute Distress, Older Than Stated Age, Chronically Ill - Head Head Exam: ATRAUMATIC - Eyes Eye Exam: Normal appearance - Respiratory Exam Respiratory Exam: Clear to Ausculation Bilateral, Rhonchi (Rhonchi secondary to Bipap machine). absent: Accessory Muscle Use, Chest Wall Tenderness, Decreased Breath Sounds, Prolonged Expiratory Phase, Rales, Wheezes, Respiratory Distress, Stridor - Cardiovascular Exam Cardiovascular Exam: Tachycardia, Irregular Rhythm, +S1, +S2. absent: JVD - Neurological Exam Neurological Exam: Alert, Awake - Extremities Exam Extremities Exam: Normal Capillary Refill, Pedal Edema (+2 pitting edema bilateral lower extremities) Plan - Assessment of Findings&Treatment Plan 73 yo male with history of CAD admitted for COPD and pneumonia - [employer] called by RN for tachycardia in 130's associated with left sided chest pain found to have Atrial flutter on EKG. Atrial Flutter - Dr. Mccarty contacted @ 1900 - will begin Cardizem PO - F/U CBC, ABG, TROPONIN, CMP, Mg, TSH, T4 - Remain in current setting. - Vital signs stable at this time. [employer] leader: Dr. Renee Residents present during [employer]ICE [employer]IDENT [employer]: Dr. Reis, PGY 2, Dr. Barrios, PGY1 <Ledy Renee - Last Filed: 02/11/19 15:34> [employer] Nurse Assessment - Vital Signs Vital Signs: Rapid Response Vital Sign Blood Pressure 96/64 Pulse Rate 160 Respiratory Rate 22 Oxygen Saturation 97 - Vital Signs at end of [employer] Vital Signs at end of [employer]: Rapid Response End Vital Sign Blood Pressure 106/67 Pulse Rate 113 Respiratory Rate 20 O2 Sat by Pulse Oximetry 97 Attending/Attestation - Attestation I have personally seen and examined this patient.: Yes I have fully participated in the care of the patient.: Yes I have reviewed all pertinent clinical information, including history, physical exam and plan: Yes Notes (Text): [employer] called by RN bec of tachycardia to 150s EKG done showed Atrial Flutter QB=578 BP 96/54 Pt on Bipap , saturating at 97% A/P: 1. Atrial Flutter 2:1 - IVF bolus started -Cardizem 5 mg IV x 1 given , persistent tachy, unable to give more Cardizem bec BP was low - Digoxin 0.25 mg IV given x 1 w/c converted the rhythm to Sinus with HR 90-low 100s - BP improved when HR slowed down -unable to start anticoagulation due to low platelet - rpt labs - CBC, CMP, Trop - Dr Whitmore informed of event , texted EKG copy to him, and he rec starting PO Cardizem - Dr Wood - pt's PMD informed of event
[2019-02-10] MEDS ORDERED: Sodium Chloride 0.9% 250 ML IV SCH ×2 (18:45→19:15)
--- NOTE | 2019-02-10 18:46 | PN ---
DATE: 02/10/2019 SUBJECTIVE: The patient is still wearing BiPAP. He denies any left-sided chest pain. PHYSICAL EXAMINATION: VITAL SIGNS: Blood pressure 119/61, heart rate 67, temperature 97.6, respirations 18. HEENT: Pale conjunctivae. CHEST: Diffuse bilateral rhonchi. HEART: S1 and S2 regular. EXTREMITIES: No edema. LABORATORY DATA: Today's SMA-7: Sodium 137, potassium 4.1, chloride 98, CO2 of 39, glucose 99, BUN 13, creatinine 0.6. ASSESSMENT: 1. Exacerbation of chronic obstructive lung disease. 2. Atypical chest pain, myocardial infarction ruled out. 3. Pancytopenia. 4. Rheumatoid arthritis. 5. Herpes zoster of the anterior abdominal wall. RECOMMENDATIONS: Continue current albuterol inhaler every four hours, continue Diamox 250 mg twice a day, Flomax 0.4 mg every 12 hours, Lipitor 20 mg once a day, Plaquenil 200 mg once a day, Solu-Medrol 30 mg intravenously every 12 hours, Zovirax local ointment. Geo Whitmore MD
[2019-02-10] MEDS ORDERED: Digoxin 500 mcg/2ml (0.5 mg/2ml) Inj ONE (18:47)
[2019-02-10 18:54] LABS: ABG ALLEN TEST YES; ARTERIAL BLOOD GAS HCO3 33.4 mmol/L (21-28); ARTERIAL BLOOD GAS HEMOGLOBIN 10.3 g/dL (11.7-17.4); ARTERIAL BLOOD GAS O2 CAPACITY 14.3 mL/dL (16-24); ARTERIAL BLOOD GAS O2 CONTENT 14.1 ML/dL (15-23); ARTERIAL BLOOD GAS O2 SAT 98.8 % (95-98); ARTERIAL BLOOD GAS PCO2 48 mm/Hg (35-45); ARTERIAL BLOOD GAS PH 7.48 (7.35-7.45); ARTERIAL BLOOD GAS PO2 86 mm/Hg (80-100); ARTERIAL BLOOD GAS TCO2 37.2 mmol/L (22-28)
[2019-02-10 19:01] LABS: ALB/GLOB RATIO 1.3 (1.0-2.1); ALT/SGPT 54 U/L (21-72); AST/SGOT 45 U/L (17-59); BLOOD UREA NITROGEN 17 mg/dl (9-20); CALCIUM 9.4 mg/dL (8.4-10.2); GFR NON-AFRICAN AMERICAN > 60
[2019-02-10 19:15] LABS: BASO % 0.3 % (0.0-2.0); EOS % 0.2 % (0.0-4.0); HEMOGLOBIN 10.4 g/dL (12.0-18.0); LYMPH # 0.9 K/uL (1.0-4.3); LYMPH % 28.8 % (20.0-40.0); MEAN CELL VOLUME 100.3 fl (80.0-94.0); MEAN CORPUSCULAR HEMOGLOBIN 31.7 pg (27.0-31.0); MEAN CORPUSCULAR HGB CONC 31.6 g/dL (33.0-37.0); MEAN PLATELET VOLUME 11.5 fl (7.2-11.7); MONO # 0.4 K/uL (0.0-0.8); MONO % 13.7 % (0.0-10.0); NEUT # 1.9 K/uL (1.8-7.0); NRBC % 1.5 % (0.0-0.0); RBC 3.27 Mil/uL (4.40-5.90); RED CELL DISTRIBUTION WIDTH 17.9 % (11.5-14.5); WHITE BLOOD COUNT 3.3 K/uL (4.8-10.8)
[2019-02-10] MEDS: Apap-Butalbital-Caffeine 325-50-40mg Tab PO SCH ×2 (20:28→23:50)
[2019-02-10] MEDS ORDERED: Enoxaparin 80 mg Syringe SC SCH (21:00)
[2019-02-10] MEDS ORDERED: Digoxin 500 mcg/2ml (0.5 mg/2ml) Inj IVP ONE (21:15)
--- NOTE | 2019-02-10 21:17 | PN ---
DATE: 02/10/2019 DAILY PROGRESS NOTE SUBJECTIVE: The patient is seen today, 02/10/2019. The patient is still in pulmonary distress with feeling short of breath once we stopped the BiPAP. PHYSICAL EXAMINATION: VITAL SIGNS: Blood pressure 107/59, temperature 97.2, respiratory rate 20, and pulse 88. HEENT: Pupils are equal and reactive to light. Normal-appearing mucosa of the conjunctivae, oropharynx and nasal membrane mucosa. NECK: Supple. No JVD. No carotid bruit. No lymph nodes. No thyromegaly. CHEST AND LUNGS: Bilateral symmetrical expansion. Decreased air entry, both lower lung amos. CARDIOVASCULAR SYSTEM: PMI not localized. S1 and S2. No additional sounds. ABDOMEN: Normoactive bowel sounds. No tenderness. No organomegaly. No masses. EXTREMITIES: No cyanosis, no clubbing, and no edema. Deformity of the rheumatoid arthritis in both hands. CENTRAL NERVOUS SYSTEM: The patient is alert, awake, and oriented x2. No neurological deficits could be appreciated. ASSESSMENT: Pneumonia; exacerbation of chronic obstructive pulmonary disease; hypercapnic respiratory failure, currently on bilevel positive airway pressure; coronary artery disease, status post coronary artery bypass graft. PLAN: Continue current medications and follow recommendations of auxiliary operator. Taper steroids as tolerated. Michaela Wood MD
[2019-02-11] MEDS: Apap-Butalbital-Caffeine 325-50-40mg Tab PO SCH ×4 (04:56→21:05)
[2019-02-11] MEDS: Insulin Regular 100 units/ml SC SCH ×4 (06:38→22:55)
[2019-02-11] MEDS: Albuterol-Ipratrop 3 mg / 0.5 (3 ml) UD INH SCH ×4 (08:07→18:59)
[2019-02-11] MEDS: guaiFENesin 600 mg ER Tab PO SCH ×2 (08:47→21:46)
[2019-02-11] MEDS: Acyclovir 5% OINT 15 APPLIC/15 GM EXT SCH ×4 (08:49→21:06)
[2019-02-11] MEDS: MethylPREDNISolone 40 mg Vial IVP SCH ×2 (08:54→22:00)
--- NOTE | 2019-02-11 12:56 | US ---
Date of service: 02/11/2019 PROCEDURE: Bilateral lower extremity venous duplex Doppler. HISTORY: r/o DVT COMPARISON: None available. TECHNIQUE: Bilateral common femoral, superficial femoral, popliteal and posterior tibial veins were evaluated. Flow was assessed with color Doppler, compressibility, assessment of phasic flow and augmentation response. FINDINGS: COMMON FEMORAL VEIN: Right CFV: Unremarkable. Left CFV: Unremarkable. SUPERFICIAL FEMORAL VEIN: Right SFV: Unremarkable. Left SFV: Unremarkable. POPLITEAL VEIN: Right Popliteal: Unremarkable. Left Popliteal: Unremarkable. POSTERIOR TIBIAL VEIN: Right PTV: Unremarkable. Left PTV: Unremarkable. OTHER FINDINGS: None. IMPRESSION: No evidence of deep venous thrombosis.
[2019-02-11] MEDS ORDERED: Sodium Chloride 0.9% 500 ML IV ONE (14:36)
--- NOTE | 2019-02-11 15:19 | CP.CCUPN ---
CCU Subjective - Physician Review Events Since Last Encounter (Free Text): 74 male with history of COPD, CAD s/p CABG, RA, thrombocytopenia, HTN, HLD, ?paroxysmal A Fib/Flutter was admitted with respiratory insufficiency and pneumonia, was treated developed tachycardia on the floor today, no fever, no vomiting, no cough, events reviewed CCU Objective - Vital Signs / Intake & Output Vital Signs (Last 4 hours): Vital Signs Temp Pulse Resp BP Pulse Ox 02/11/19 12:56 122 H 02/11/19 12:17 97.8 F 78 18 99/65 L 110 H - Physical Exam Head: Positive for: Atraumatic, Normocephalic Pupils: Positive for: PERRL Extroacular Muscles: Positive for: EOMI Conjunctiva: Positive for: Normal. Negative for: Injected, Icteric Mouth: Positive for: Moist Mucous Membranes Nose (Internal): Positive for: Normal Inspection Neck: Positive for: Normal Range of Motion, Trachea Midline. Negative for: Meningeal Signs, MIDLINE TENDERNESS, Paraspinal Tenderness, JVD, Lymphadenopathy, Bruit, Other Respiratory/Chest: Positive for: Good Air Exchange, Decreased Breath Sounds. Negative for: Respiratory Distress, Accessory Muscle Use, Wheezes Cardiovascular: Positive for: Irregular Rhythm, Tachycardic Abdomen: Positive for: Normal Bowel Sounds. Negative for: Tenderness, Distention Upper Extremity: Positive for: Normal Inspection Lower Extremity: Positive for: Normal Inspection Psychiatric: Positive for: Alert - Medications Active Medications: Active Medications Generic Name Dose Route Start Last Admin Trade Name Freq PRN Reason Stop Dose Admin Acetaminophen 650 mg 02/03/19 23:27 02/11/19 11:06 Tylenol 325mg Tab PO 650 mg Q6 PRN Administration Fever >100.4 F Acetaminophen 650 mg 02/03/19 23:28 02/10/19 14:26 Tylenol 325mg Tab PO 650 mg Q6 PRN Administration Pain, Mild (1-3) Acetaminophen/Butalbital/Caffeine 1 tab 02/10/19 18:00 02/11/19 12:54 Fioricet PO 1 tab Q6 ARTEMIO Administration Acetazolamide 250 mg 02/09/19 09:00 02/11/19 08:47 Diamox 250 Mg Tab PO 250 mg BID ARTEMIO Administration Acyclovir 1 applic 02/04/19 09:00 02/11/19 12:58 Zovirax 5% Oint EXT 1 applic QID ARTEMIO Administration Albuterol Sulfate 2.5 mg 02/07/19 09:14 Albuterol 0.083% Inhal Yajaira (2.5 Mg/3 Ml) Ud INH RQ4 PRN Shortness of Breath Albuterol/Ipratropium 3 ml 02/07/19 12:00 02/11/19 11:12 Duoneb 3 Mg/0.5 Mg (3 Ml) Ud INH 3 ml RQID ARTEMIO Administration Atorvastatin Calcium 20 mg 02/04/19 22:00 02/10/19 22:18 Lipitor PO 20 mg HS ARTEMIO Administration Baclofen 10 mg 02/04/19 09:00 02/11/19 08:47 Lioresal PO 10 mg DAILY ARTEMIO Administration Digoxin 0.25 mg 02/11/19 18:44 Lanoxin IVP 02/11/19 18:45 ONCE ONE Diltiazem HCl 30 mg 02/11/19 09:00 02/11/19 12:56 Cardizem PO 30 mg TID ARTEMIO Administration Docusate Sodium 100 mg 02/04/19 09:00 02/11/19 08:48 Colace PO 100 mg Q12 ARTEMIO Administration Famotidine 20 mg 02/04/19 09:00 02/11/19 08:47 Pepcid PO 20 mg BID ARTEMIO Administration Guaifenesin 600 mg 02/04/19 09:00 02/11/19 08:47 Mucinex La PO 600 mg Q12 ARTEMIO Administration Heparin Sodium (Porcine) 5,000 units 02/11/19 21:00 Heparin SC Q12 ARTEMIO Protocol Hydroxychloroquine Sulfate 200 mg 02/04/19 09:00 02/08/19 08:46 Plaquenil PO 200 mg DAILY ARTEMIO Administration Protocol Sodium Chloride 250 mls @ 999 mls/hr 02/10/19 18:45 02/10/19 20:53 Sodium Chloride 0.9% IV 02/11/19 18:35 999 mls/hr .Q16M ARTEMIO Administration Sodium Chloride 250 mls @ 999 mls/hr 02/10/19 19:15 Sodium Chloride 0.9% IV 02/11/19 19:05 .Q16M ARTEMIO Sodium Chloride 500 mls @ 500 mls/hr 02/11/19 14:36 Sodium Chloride 0.9% IV 02/11/19 15:35 .Q1H ONE Insulin Human Regular 0 units 02/04/19 07:30 02/11/19 12:19 Humulin R SC Not Given ACHS ARTEMIO Protocol Lactulose 20 gm 02/04/19 13:54 Enulose PO DAILY PRN Constipation Methylprednisolone 30 mg 02/07/19 09:30 02/11/19 08:54 Solu-Medrol IVP 30 mg Q12 ARTEMIO Administration Montelukast Sodium 10 mg 02/04/19 22:00 02/10/19 22:18 Singulair PO 10 mg HS ARTEMIO Administration Tamsulosin HCl 0.4 mg 02/04/19 21:00 02/11/19 08:47 Flomax PO 0.4 mg Q12 ARTEMIO Administration Temazepam 15 mg 02/05/19 00:03 02/10/19 22:16 Restoril PO 15 mg HS PRN Administration Insomnia - Patient Studies Lab Studies: Lab Studies 02/11/19 02/11/19 02/10/19 Range/Units 10:59 05:47 21:07 WBC (4.8-10.8) K/uL RBC (4.40-5.90) Mil/uL Hgb (12.0-18.0) g/dL Hct (35.0-51.0) % MCV (80.0-94.0) fl MCH (27.0-31.0) pg MCHC (33.0-37.0) g/dL RDW (11.5-14.5) % Plt Count (130-400) K/uL MPV (7.2-11.7) fl Neut % (Auto) (50.0-75.0) % Lymph % (Auto) (20.0-40.0) % [place] % (Auto) (0.0-10.0) % Eos % (Auto) (0.0-4.0) % Baso % (Auto) (0.0-2.0) % Neut # (Auto) (1.8-7.0) K/uL Lymph # (Auto) (1.0-4.3) K/uL [place] # (Auto) (0.0-0.8) K/uL Eos # (Auto) (0.0-0.7) K/uL Baso # (Auto) (0.0-0.2) K/uL pCO2 (35-45) mm/Hg pO2 (80-100) mm/Hg HCO3 (21-28) mmol/L ABG pH (7.35-7.45) ABG Total CO2 (22-28) mmol/L ABG O2 Saturation (95-98) % ABG O2 Content (15-23) ML/dL ABG Base Excess (-2.0-3.0) mmol/L ABG Hemoglobin (11.7-17.4) g/dL ABG Carboxyhemoglobin (0.5-1.5) % POC ABG HHb (Measured) (0.0-5.0) % ABG Methemoglobin (0.0-3.0) % ABG O2 Capacity (16-24) mL/dL Isacc Test A-a O2 Difference mm/Hg Hgb O2 Saturation (95.0-98.0) % Mechanical Rate FiO2 % Inspiratory BiPAP Expiratory BiPAP Sodium (132-148) mmol/l Potassium (3.6-5.0) MMOL/L Chloride (98-107) mmol/L Carbon Dioxide (22-30) mmol/L Anion Gap (10-20) BUN (9-20) mg/dl Creatinine (0.8-1.5) mg/dl Est GFR ( Amer) Est GFR (Non-Af Amer) POC Glucose (mg/dL) 119 H 132 H 127 H (65-110) mg/dL Random Glucose (75-110) mg/dL Calcium (8.4-10.2) mg/dL Magnesium (1.6-2.3) MG/DL Total Bilirubin (0.2-1.3) mg/dl AST (17-59) U/L ALT (21-72) U/L Alkaline Phosphatase (38-126) U/L Troponin I (0.00-0.120) ng/mL Total Protein (6.3-8.2) G/DL Albumin (3.5-5.0) g/dL Globulin (2.2-3.9) gm/dL Albumin/Globulin Ratio (1.0-2.1) Thyroxine (T4) (5.5-11.0) ug/dl TSH 3rd Generation (0.46-4.68) mIU/ML 04/06/19 04/06/19 04/06/19 Range/Units 19:19 18:49 18:40 WBC (4.8-10.8) K/uL RBC (4.40-5.90) Mil/uL Hgb (12.0-18.0) g/dL Hct (35.0-51.0) % MCV (80.0-94.0) fl MCH (27.0-31.0) pg MCHC (33.0-37.0) g/dL RDW (11.5-14.5) % Plt Count (130-400) K/uL MPV (7.2-11.7) fl Neut % (Auto) (50.0-75.0) % Lymph % (Auto) (20.0-40.0) % [place] % (Auto) (0.0-10.0) % Eos % (Auto) (0.0-4.0) % Baso % (Auto) (0.0-2.0) % Neut # (Auto) (1.8-7.0) K/uL Lymph # (Auto) (1.0-4.3) K/uL [place] # (Auto) (0.0-0.8) K/uL Eos # (Auto) (0.0-0.7) K/uL Baso # (Auto) (0.0-0.2) K/uL pCO2 48 H (35-45) mm/Hg pO2 86 (80-100) mm/Hg HCO3 33.4 H (21-28) mmol/L ABG pH 7.48 H (7.35-7.45) ABG Total CO2 37.2 H (22-28) mmol/L ABG O2 Saturation 98.8 H (95-98) % ABG O2 Content 14.1 L (15-23) ML/dL ABG Base Excess 10.9 H (-2.0-3.0) mmol/L ABG Hemoglobin 10.3 L (11.7-17.4) g/dL ABG Carboxyhemoglobin 1.1 (0.5-1.5) % POC ABG HHb (Measured) 1.2 (0.0-5.0) % ABG Methemoglobin 1.0 (0.0-3.0) % ABG O2 Capacity 14.3 L (16-24) mL/dL Isacc Test Yes A-a O2 Difference 54.0 mm/Hg Hgb O2 Saturation 96.7 (95.0-98.0) % Mechanical Rate 16 FiO2 28.0 % Inspiratory BiPAP 16 Expiratory BiPAP 8 Sodium (132-148) mmol/l Potassium (3.6-5.0) MMOL/L Chloride (98-107) mmol/L Carbon Dioxide (22-30) mmol/L Anion Gap (10-20) BUN (9-20) mg/dl Creatinine (0.8-1.5) mg/dl Est GFR ( Amer) Est GFR (Non-Af Amer) POC Glucose (mg/dL) (65-110) mg/dL Random Glucose (75-110) mg/dL Calcium (8.4-10.2) mg/dL Magnesium 2.1 (1.6-2.3) MG/DL Total Bilirubin (0.2-1.3) mg/dl AST (17-59) U/L ALT (21-72) U/L Alkaline Phosphatase (38-126) U/L Troponin I (0.00-0.120) ng/mL Total Protein (6.3-8.2) G/DL Albumin (3.5-5.0) g/dL Globulin (2.2-3.9) gm/dL Albumin/Globulin Ratio (1.0-2.1) Thyroxine (T4) 10.8 (5.5-11.0) ug/dl TSH 3rd Generation 0.26 L (0.46-4.68) mIU/ML 02/10/19 02/10/19 02/10/19 Range/Units 18:40 18:40 18:29 WBC 3.3 L D (4.8-10.8) K/uL RBC 3.27 L (4.40-5.90) Mil/uL Hgb 10.4 L (12.0-18.0) g/dL Hct 32.8 L (35.0-51.0) % MCV 100.3 H (80.0-94.0) fl MCH 31.7 H (27.0-31.0) pg MCHC 31.6 L (33.0-37.0) g/dL RDW 17.9 H (11.5-14.5) % Plt Count 80 L (130-400) K/uL MPV 11.5 (7.2-11.7) fl Neut % (Auto) 57.0 (50.0-75.0) % Lymph % (Auto) 28.8 (20.0-40.0) % [place] % (Auto) 13.7 H (0.0-10.0) % Eos % (Auto) 0.2 (0.0-4.0) % Baso % (Auto) 0.3 (0.0-2.0) % Neut # (Auto) 1.9 (1.8-7.0) K/uL Lymph # (Auto) 0.9 L (1.0-4.3) K/uL [place] # (Auto) 0.4 (0.0-0.8) K/uL Eos # (Auto) 0.0 (0.0-0.7) K/uL Baso # (Auto) 0.0 (0.0-0.2) K/uL pCO2 (35-45) mm/Hg pO2 (80-100) mm/Hg HCO3 (21-28) mmol/L ABG pH (7.35-7.45) ABG Total CO2 (22-28) mmol/L ABG O2 Saturation (95-98) % ABG O2 Content (15-23) ML/dL ABG Base Excess (-2.0-3.0) mmol/L ABG Hemoglobin (11.7-17.4) g/dL ABG Carboxyhemoglobin (0.5-1.5) % POC ABG HHb (Measured) (0.0-5.0) % ABG Methemoglobin (0.0-3.0) % ABG O2 Capacity (16-24) mL/dL Isacc Test A-a O2 Difference mm/Hg Hgb O2 Saturation (95.0-98.0) % Mechanical Rate FiO2 % Inspiratory BiPAP Expiratory BiPAP Sodium 136 (132-148) mmol/l Potassium 4.7 (3.6-5.0) MMOL/L Chloride 97 L (98-107) mmol/L Carbon Dioxide 37 H (22-30) mmol/L Anion Gap 7 L (10-20) BUN 17 (9-20) mg/dl Creatinine 0.6 L (0.8-1.5) mg/dl Est GFR ( Amer) > 60 Est GFR (Non-Af Amer) > 60 POC Glucose (mg/dL) 163 H (65-110) mg/dL Random Glucose 129 H (75-110) mg/dL Calcium 9.4 (8.4-10.2) mg/dL Magnesium (1.6-2.3) MG/DL Total Bilirubin 0.5 (0.2-1.3) mg/dl AST 45 (17-59) U/L ALT 54 (21-72) U/L Alkaline Phosphatase 46 (38-126) U/L Troponin I 0.0220 (0.00-0.120) ng/mL Total Protein 5.3 L (6.3-8.2) G/DL Albumin 3.0 L D (3.5-5.0) g/dL Globulin 2.3 (2.2-3.9) gm/dL Albumin/Globulin Ratio 1.3 (1.0-2.1) Thyroxine (T4) (5.5-11.0) ug/dl TSH 3rd Generation (0.46-4.68) mIU/ML 02/10/19 02/10/19 Range/Units 16:15 11:26 WBC (4.8-10.8) K/uL RBC (4.40-5.90) Mil/uL Hgb (12.0-18.0) g/dL Hct (35.0-51.0) % MCV (80.0-94.0) fl MCH (27.0-31.0) pg MCHC (33.0-37.0) g/dL RDW (11.5-14.5) % Plt Count (130-400) K/uL MPV (7.2-11.7) fl Neut % (Auto) (50.0-75.0) % Lymph % (Auto) (20.0-40.0) % [place] % (Auto) (0.0-10.0) % Eos % (Auto) (0.0-4.0) % Baso % (Auto) (0.0-2.0) % Neut # (Auto) (1.8-7.0) K/uL Lymph # (Auto) (1.0-4.3) K/uL [place] # (Auto) (0.0-0.8) K/uL Eos # (Auto) (0.0-0.7) K/uL Baso # (Auto) (0.0-0.2) K/uL pCO2 (35-45) mm/Hg pO2 (80-100) mm/Hg HCO3 (21-28) mmol/L ABG pH (7.35-7.45) ABG Total CO2 (22-28) mmol/L ABG O2 Saturation (95-98) % ABG O2 Content (15-23) ML/dL ABG Base Excess (-2.0-3.0) mmol/L ABG Hemoglobin (11.7-17.4) g/dL ABG Carboxyhemoglobin (0.5-1.5) % POC ABG HHb (Measured) (0.0-5.0) % ABG Methemoglobin (0.0-3.0) % ABG O2 Capacity (16-24) mL/dL Isacc Test A-a O2 Difference mm/Hg Hgb O2 Saturation (95.0-98.0) % Mechanical Rate FiO2 % Inspiratory BiPAP Expiratory BiPAP Sodium (132-148) mmol/l Potassium (3.6-5.0) MMOL/L Chloride (98-107) mmol/L Carbon Dioxide (22-30) mmol/L Anion Gap (10-20) BUN (9-20) mg/dl Creatinine (0.8-1.5) mg/dl Est GFR ( Amer) Est GFR (Non-Af Amer) POC Glucose (mg/dL) 193 H 151 H (65-110) mg/dL Random Glucose (75-110) mg/dL Calcium (8.4-10.2) mg/dL Magnesium (1.6-2.3) MG/DL Total Bilirubin (0.2-1.3) mg/dl AST (17-59) U/L ALT (21-72) U/L Alkaline Phosphatase (38-126) U/L Troponin I (0.00-0.120) ng/mL Total Protein (6.3-8.2) G/DL Albumin (3.5-5.0) g/dL Globulin (2.2-3.9) gm/dL Albumin/Globulin Ratio (1.0-2.1) Thyroxine (T4) (5.5-11.0) ug/dl TSH 3rd Generation (0.46-4.68) mIU/ML Laboratory Results - last 24 hr 02/10/19 02/10/19 02/10/19 11:26 16:15 18:29 WBC RBC Hgb Hct MCV MCH MCHC RDW Plt Count MPV Neut % (Auto) Lymph % (Auto) [place] % (Auto) Eos % (Auto) Baso % (Auto) Neut # (Auto) Lymph # (Auto) [place] # (Auto) Eos # (Auto) Baso # (Auto) pCO2 pO2 HCO3 ABG pH ABG Total CO2 ABG O2 Saturation ABG O2 Content ABG Base Excess ABG Hemoglobin ABG Carboxyhemoglobin POC ABG HHb (Measured) ABG Methemoglobin ABG O2 Capacity Isacc Test A-a O2 Difference Hgb O2 Saturation Mechanical Rate FiO2 Inspiratory BiPAP Expiratory BiPAP Sodium Potassium Chloride Carbon Dioxide Anion Gap BUN Creatinine Est GFR ( Amer) Est GFR (Non-Af Amer) POC Glucose (mg/dL) 151 H 193 H 163 H Random Glucose Calcium Magnesium Total Bilirubin AST ALT Alkaline Phosphatase Troponin I Total Protein Albumin Globulin Albumin/Globulin Ratio Thyroxine (T4) TSH 3rd Generation 02/10/19 02/10/19 02/10/19 18:40 18:40 18:40 WBC 3.3 L D RBC 3.27 L Hgb 10.4 L Hct 32.8 L MCV 100.3 H MCH 31.7 H MCHC 31.6 L RDW 17.9 H Plt Count 80 L MPV 11.5 Neut % (Auto) 57.0 Lymph % (Auto) 28.8 [place] % (Auto) 13.7 H Eos % (Auto) 0.2 Baso % (Auto) 0.3 Neut # (Auto) 1.9 Lymph # (Auto) 0.9 L [place] # (Auto) 0.4 Eos # (Auto) 0.0 Baso # (Auto) 0.0 pCO2 pO2 HCO3 ABG pH ABG Total CO2 ABG O2 Saturation ABG O2 Content ABG Base Excess ABG Hemoglobin ABG Carboxyhemoglobin POC ABG HHb (Measured) ABG Methemoglobin ABG O2 Capacity Isacc Test A-a O2 Difference Hgb O2 Saturation Mechanical Rate FiO2 Inspiratory BiPAP Expiratory BiPAP Sodium 136 Potassium 4.7 Chloride 97 L Carbon Dioxide 37 H Anion Gap 7 L BUN 17 Creatinine 0.6 L Est GFR ( Amer) > 60 Est GFR (Non-Af Amer) > 60 POC Glucose (mg/dL) Random Glucose 129 H Calcium 9.4 Magnesium 2.1 Total Bilirubin 0.5 AST 45 ALT 54 Alkaline Phosphatase 46 Troponin I 0.0220 Total Protein 5.3 L Albumin 3.0 L D Globulin 2.3 Albumin/Globulin Ratio 1.3 Thyroxine (T4) TSH 3rd Generation 02/10/19 02/10/19 02/10/19 18:49 19:19 21:07 WBC RBC Hgb Hct MCV MCH MCHC RDW Plt Count MPV Neut % (Auto) Lymph % (Auto) [place] % (Auto) Eos % (Auto) Baso % (Auto) Neut # (Auto) Lymph # (Auto) [place] # (Auto) Eos # (Auto) Baso # (Auto) pCO2 48 H pO2 86 HCO3 33.4 H ABG pH 7.48 H ABG Total CO2 37.2 H ABG O2 Saturation 98.8 H ABG O2 Content 14.1 L ABG Base Excess 10.9 H ABG Hemoglobin 10.3 L ABG Carboxyhemoglobin 1.1 POC ABG HHb (Measured) 1.2 ABG Methemoglobin 1.0 ABG O2 Capacity 14.3 L Isacc Test Yes A-a O2 Difference 54.0 Hgb O2 Saturation 96.7 Mechanical Rate 16 FiO2 28.0 Inspiratory BiPAP 16 Expiratory BiPAP 8 Sodium Potassium Chloride Carbon Dioxide Anion Gap BUN Creatinine Est GFR ( Amer) Est GFR (Non-Af Amer) POC Glucose (mg/dL) 127 H Random Glucose Calcium Magnesium Total Bilirubin AST ALT Alkaline Phosphatase Troponin I Total Protein Albumin Globulin Albumin/Globulin Ratio Thyroxine (T4) 10.8 TSH 3rd Generation 0.26 L 02/11/19 02/11/19 05:47 10:59 WBC RBC Hgb Hct MCV MCH MCHC RDW Plt Count MPV Neut % (Auto) Lymph % (Auto) [place] % (Auto) Eos % (Auto) Baso % (Auto) Neut # (Auto) Lymph # (Auto) [place] # (Auto) Eos # (Auto) Baso # (Auto) pCO2 pO2 HCO3 ABG pH ABG Total CO2 ABG O2 Saturation ABG O2 Content ABG Base Excess ABG Hemoglobin ABG Carboxyhemoglobin POC ABG HHb (Measured) ABG Methemoglobin ABG O2 Capacity Isacc Test A-a O2 Difference Hgb O2 Saturation Mechanical Rate FiO2 Inspiratory BiPAP Expiratory BiPAP Sodium Potassium Chloride Carbon Dioxide Anion Gap BUN Creatinine Est GFR ( Amer) Est GFR (Non-Af Amer) POC Glucose (mg/dL) 132 H 119 H Random Glucose Calcium Magnesium Total Bilirubin AST ALT Alkaline Phosphatase Troponin I Total Protein Albumin Globulin Albumin/Globulin Ratio Thyroxine (T4) TSH 3rd Generation Radiology Impressions: Radiology Impressions Chest X-Ray 02/10/19 08:00 IMPRESSION: Improved aeration is noted at the left base with limited fibrotic changes remaining. Chronic right pleural effusion or pleural thickening is reiterated at the right mid inferior lung zones with underlying airspace disease not excluded, also on a chronic basis. Prominent cardiac silhouette unchanged. No pulmonary vascular congestion appreciated. Extremity Ultrasound 02/10/19 19:03 IMPRESSION: No evidence of deep venous thrombosis. EKG/Cardiology Studies: Cardiology / EKG Studies 02/11/19 EKG [ELECTROCARDIOGRAM] Stat Comment: Mode Of Transportation: PORTABLE Reason For Exam: elevated heart rate ELECTROCARDIOGRAM Stat Comment: Mode Of Transportation: PORTABLE Reason For Exam: tachy/hypotension Fingerstick Blood Sugar Results: 119 Critical Care Progress Note - Nutrition Nutrition: Nutrition Category Date Time Status Dysphagia/Modified Consistency Diet [DIET] Diets 02/05/19 Dinner Active Assessment/Plan - Assessment and Plan (Free Text) Assessment: A/P Respiratory insufficiency, COPD, CAD s/p CABG, RA, thrombocytopenia, HTN, HLD, ?paroxysmal A Fib/Flutter, tachycardia, hypertension, R/O MN - Cardiac enzymes - IV fluid - O2 supplement - BIPAP as needed - Cardiology follow up - Heart rate control - Follow up labs critical care 35 min
--- NOTE | 2019-02-11 17:16 | PCM.RRT ---
<CezarKaleigh triplett - Last Filed: 02/11/19 17:31> CREDIT OFFICE MANAGER Nurse Assessment - Situation CREDIT OFFICE MANAGER Responder Arrival Time: 14:28 Location: TELEMETRY Room Number: 415-1 CREDIT OFFICE MANAGER Reason for Call: Chest Pain, Tachycardia CREDIT OFFICE MANAGER Called By: RN - IV IV Inserted during CREDIT OFFICE MANAGER?: No IV Fluids Initiated During CREDIT OFFICE MANAGER?: NORMAL SALINE BOLUS OF 500 New IV Insertion Tolerance:: Poor - Respiratory Oxygen Delivery Method: Nasal Cannula Received Nebulizer Treatments: No Was the Patient Ventilated with Bag/Mask 100% O2?: No Secretions Suctioned?: No Was the Patient Intubated?: No Was the Patient Placed on a Ventilator?: No - Diagnostic Test Ordered EKG: No Chest X-Ray: No CT Scan: No - Vital Signs Vital Signs: Rapid Response Vital Sign Blood Pressure 96/64 Pulse Rate 160 Respiratory Rate 22 Temperature 97 F Oxygen Saturation 97 - Time CREDIT OFFICE MANAGER Ended Time CREDIT OFFICE MANAGER Ended: 15:00 - Vital Signs at end of CREDIT OFFICE MANAGER Vital Signs at end of CREDIT OFFICE MANAGER: Rapid Response End Vital Sign Blood Pressure 106/67 Pulse Rate 113 Respiratory Rate 20 O2 Sat by Pulse Oximetry 97 - Recommendations CREDIT OFFICE MANAGER Level of Care Recommendations: Transfer to ICU I.Reason for CREDIT OFFICE MANAGER - A) Acute Change in Patient: (Select all that apply): Staff member or family is worried about patient Subjective: CREDIT OFFICE MANAGER called by RN due to rapid a fib 73 yo male with history of CAD admitted for COPD and pneumonia - CREDIT OFFICE MANAGER called by RN for rapid afib with HR in 130's. Patient is alert and oriented. Reports feeling okay. V/S: BP: 79/34 ; HR: 138 ; O2 saturation on O2 NC: 98%. General: A&Ox3, alert, awake Lungs: Clear bilaterally. Heart: S1 and S2. Tachycardic Extremities: Lower extremity pitting edema bilaterally +2. INTERVENTION: - Dr Bowser on-site and present for CREDIT OFFICE MANAGER - BP: 79/34 - 250 Normal saline bolus - Repeat BP: 88/53 HR: 137, continue with remainder 250 of of 500ml bolus - BP did not improve with fluids - Patient to be transferred back to ICU, Dr Starr assessed and accepted pt - Dr Wood contacted and made aware of transfer and patient status - Cardizem 7.5mg IV order cancelled, pt will be reevaluated in ICU CREDIT OFFICE MANAGER Team: - Dr Renee, Dr Stafford - Dr Bowser - Dr Starr - Neurological Status (Select all that apply): Alert, Responsive, Oriented, Verbal - Respiratory Oxygen Delivery Method: Nasal Cannula @L/min <Ledy Renee - Last Filed: 02/11/19 18:05> CREDIT OFFICE MANAGER Nurse Assessment - Vital Signs Vital Signs: Rapid Response Vital Sign Blood Pressure 96/64 Pulse Rate 160 Respiratory Rate 22 Temperature 97 F Oxygen Saturation 97 - Vital Signs at end of CREDIT OFFICE MANAGER Vital Signs at end of CREDIT OFFICE MANAGER: Rapid Response End Vital Sign Blood Pressure 106/67 Pulse Rate 113 Respiratory Rate 20 O2 Sat by Pulse Oximetry 97 Attending/Attestation - Attestation I have personally seen and examined this patient.: Yes I have fully participated in the care of the patient.: Yes I have reviewed all pertinent clinical information, including history, physical exam and plan: Yes Notes (Text): A fib with RVR Hypotension CREDIT OFFICE MANAGER called due to tachycardia BP 79/34, HR: 138 Saturation 98-99% on NC Pt is awake , alert and asymptomatic denies CP, no SOB Dr Whitmore, pt's Rug Weaver at bedside during the event EKG : A Fib with RVR - IVF hydration NS 500ml bolus given - Dr Whitmore rec to transfer pt to ICU for monitoring -rec not to give any meds for now and just the IVF - discussed case with Dr Starr - [facility] who accepted pt - Dr Wood notified of event
[2019-02-11] MEDS ORDERED: Digoxin 500 mcg/2ml (0.5 mg/2ml) Inj IVP ONE (18:44)
--- NOTE | 2019-02-11 18:49 | RAD ---
Date of service: 02/11/2019 HISTORY: SOB COMPARISON: Portable chest 02/10/2019. TECHNIQUE: 1 view obtained. FINDINGS: LUNGS: No interval change in elevated right hemidiaphragm and right basilar dependent atelectasis or infiltrate. Persistent prominence of the right pleural space is again evident suggesting at least mild pleural effusion with underlying fibrosis not excluded. No left pleural effusion. No pneumothorax bilaterally. Linear atelectasis/fibrosis again noted left base. No left-sided infiltrate. PLEURA: As above. CARDIOVASCULAR: Calcific atherosclerotic changes are seen related to the thoracic aorta. Stable cardiomegaly. No pulmonary vascular congestion. OSSEOUS STRUCTURES: Upper mid thoracic spinal fusion hardware reiterated. VISUALIZED UPPER ABDOMEN: Normal. OTHER FINDINGS: None. IMPRESSION: No interval change in elevated right hemidiaphragm, cardiomegaly and limited right pleural effusion with none on the left. Pleural fibrosis not excluded the right base. Potential atelectasis favored over infiltrate right base. Fibrotic changes again seen left base.
--- NOTE | 2019-02-11 20:41 | CARD ---
APPROVED REPORT Date of service: 02/11/2019 EKG Measurement Heart [id number] <Conclusion> Atrial fibrillation with rapid ventricular response with premature ventricular or aberrantly conducted complexes Right bundle branch block Inferior infarct, age undetermined Diffuse NDSTT abnormalities Abnormal ECG
--- NOTE | 2019-02-11 20:53 | CARD ---
APPROVED REPORT Date of service: 02/10/2019 EKG Measurement Heart [id number] <Conclusion> Atrial flutter with 2:1 AV conduction Right bundle branch block Abnormal ECG
[2019-02-11] MEDS: Levalbuterol 1.25 MG/3 ML Inhal Soln UD INH PRN (22:15)
[2019-02-11] MEDS: Levalbuterol 1.25 MG/3 ML Inhal Soln UD INH SCH (22:16)
[2019-02-11] MEDS: Ipratropium 0.02% Inhal Soln (0.5 mg/2.5 ml) UD IH SCH (22:16)
--- NOTE | 2019-02-11 22:17 | PN ---
DATE: 02/11/2019 DAILY PROGRESS NOTE SUBJECTIVE: The patient is seen today, 02/11/2019. He had an OUTSOLE FLEXER twice during the last 24 hours for what was thought to be atrial flutter/fibrillation or MAT. The patient was given multiple rate controlling agents and seen by Cardiology today. PHYSICAL EXAMINATION: VITAL SIGNS: Blood pressure now is 95/54, temperature 98.4, respiratory rate 25 and pulse is 129 currently. HEENT: Pupils equal, reactive to light. Normal-appearing mucosa of the conjunctivae, oropharynx and nasal membrane mucosa. NECK: Supple. No JVD. No carotid bruit. No lymph node. No thyromegaly. CHEST AND LUNGS: Bilateral symmetrical expansion. Scattered rhonchi and bilateral basilar rales. CARDIOVASCULAR SYSTEM: PMI not localized. S1 and S2. No additional sounds. ABDOMEN: Normoactive bowel sounds. No tenderness. No organomegaly. No masses. EXTREMITIES: No cyanosis, no clubbing, no edema. CENTRAL NERVOUS SYSTEM: Alert, awake, oriented x2. No neurological deficit could be appreciated. ASSESSMENT: Exacerbation of chronic obstructive pulmonary disease, pneumonia, multifocal atrial tachycardia, coronary artery disease. PLAN: We will continue rate controlling agent Cardizem, follow cardiology recommendations and continue bronchodilators as well as Mucomyst. Michaela Wood MD
[2019-02-12] MEDS: Apap-Butalbital-Caffeine 325-50-40mg Tab PO SCH ×4 (05:00→21:06)
[2019-02-12 05:37] LABS: MEAN CELL VOLUME 102.1 fl (80.0-94.0); MEAN CORPUSCULAR HEMOGLOBIN 32.3 pg (27.0-31.0); MEAN CORPUSCULAR HGB CONC 31.6 g/dL (33.0-37.0); RBC 3.09 Mil/uL (4.40-5.90); RED CELL DISTRIBUTION WIDTH 18.2 % (11.5-14.5)
[2019-02-12 05:44] LABS: BLOOD UREA NITROGEN 15 mg/dl (9-20); CALCIUM 8.9 mg/dL (8.4-10.2); GFR NON-AFRICAN AMERICAN > 60
--- NOTE | 2019-02-12 08:07 | PN ---
DATE: 02/11/2019 SUBJECTIVE: The patient had Rapid Response yesterday and was found to be in atrial flutter with 2:1 conduction and received digoxin, a total of 0.5 mg intravenously. He subsequently converted to sinus rhythm. This morning, the patient was in MAT and subsequently developed rapid atrial fibrillation, Rapid Response was activated. The patient was found to be hypotensive with blood pressure of 80/40. The patient denies any chest pain and appears comfortable in bed. PHYSICAL EXAMINATION: VITAL SIGNS: Blood pressure, the most recent manual one was 80/40, earlier it was 99/65; heart rate now 130; temperature 97.8; respirations 18. HEENT: Normocephalic. CHEST: Bilateral rhonchi and absent breath sounds over left base. HEART: S1, S2, regular. ABDOMEN: Soft. EXTREMITIES: No edema. LABORATORY DATA: Today's blood sugars are 132 and 119 respectively. Venous Doppler of lower extremities that was performed yesterday was negative for PE. ASSESSMENT: 1. Paroxysmal atrial flutter and paroxysmal atrial fibrillation. 2. Runs of multifocal atrial tachycardia. 3. Chronic obstructive lung disease. 4. Pancytopenia. RECOMMENDATIONS: The case was discussed with fish farmer who will evaluate the patient and will see the patient in ICU. The patient is currently receiving 500 mL of normal saline as intravenous flow challenge and will be started on Cardizem infusion. I will obtain portable chest x-ray as well as serum digoxin level. Regarding anticoagulation, the patient is thrombocytopenic. However, the most recent platelet count yesterday was 80,000 and I will repeat another CBC prior to considering full anticoagulation. However, in the meantime, I will place the patient on heparin 5000 units every 12 hours. Geo Whitmore MD
[2019-02-12] MEDS: Ipratropium 0.02% Inhal Soln (0.5 mg/2.5 ml) UD IH SCH ×4 (08:22→19:10)
[2019-02-12] MEDS: Levalbuterol 1.25 MG/3 ML Inhal Soln UD INH SCH (08:22)
[2019-02-12] MEDS: guaiFENesin 600 mg ER Tab PO SCH ×2 (08:26→20:17)
[2019-02-12] MEDS: MethylPREDNISolone 40 mg Vial IVP SCH ×2 (08:27→20:25)
[2019-02-12] MEDS: Acyclovir 5% OINT 15 APPLIC/15 GM EXT SCH ×4 (08:28→21:08)
--- NOTE | 2019-02-12 08:36 | CP.PCM.PN ---
Subjective - Date & Time of Evaluation Date of Evaluation: 02/12/19 Time of Evaluation: 08:36 - Subjective Subjective: Seen on rounds, back in ICU again because of marked tachycardia. Had CHEMICAL PUMPER called yesterday because of the above and transferred. He relates having been on standard nasal canula for >24hrs now. Oxygenation has been good, and he denies having SOB or chest pain. He has been given diltiazem, but presently remains tachy >120BPM. Previous echocardiograms have been reviewed, and none suggest Pulmonary Hypertension. His last chest x-ray yesterday shows a little improvement in the left base with the right base unchanged. He has been changed to levalbuterol in an attempt to reduce any beta-adrenergic stimulation. On exam he is supine in bed, breathing relatively comfortably. There is some respiratory recruitment noted w/o IC retractions (as usual for him). Breath sounds are fairly well heard anteriorly in both lungs. Breath sounds are diminished posteriorly, especially in the RLL. There are no wheezes presently, few dry to medium rales persist in LLs, R>L. No bronchial breath sounds or egophony. Will not reduce steroids today as initially planned. Discontinue levalbuterol except as PRN therapy. Maintain ipratropium on schedule QID. He did not tolerate HFNC the other day. Not a candidate for roflumiolast or theophylline because of tachycardia. Objective - Vital Signs/Intake and Output Vital Signs (last 24 hours): Temp Pulse Resp BP Pulse Ox 98.1 F 115 H 22 120/68 97 02/12/19 04:00 02/12/19 08:20 02/12/19 08:20 02/12/19 08:20 02/12/19 08:20 Intake and Output: 02/11/19 02/12/19 23:59 11:59 Intake Total 1130 Output Total 300 Balance 830 - Medications Medications: Current Medications Acetaminophen (Tylenol 325mg Tab) 650 mg PO Q6 PRN PRN Reason: Fever >100.4 F Last Admin: 02/11/19 11:06 Dose: 650 mg Acetaminophen (Tylenol 325mg Tab) 650 mg PO Q6 PRN PRN Reason: Pain, Mild (1-3) Last Admin: 02/11/19 17:53 Dose: 650 mg Acetaminophen/Butalbital/Caffeine (Fioricet) 1 tab PO Q6 PENDING SALE TO [facility] Last Admin: 02/12/19 05:00 Dose: Not Given Acetazolamide (Diamox 250 Mg Tab) 250 mg PO BID [facility]END[facility] TO [facility] Last Admin: 02/12/19 08:21 Dose: 250 mg Acyclovir (Zovirax 5% Oint) 1 applic EXT QID [facility]END[facility] TO [facility] Last Admin: 02/12/19 08:28 Dose: 1 applic Atorvastatin Calcium (Lipitor) 20 mg PO HS PENDING SALE TO [facility] Last Admin: 02/11/19 21:04 Dose: 20 mg Baclofen (Lioresal) 10 mg PO DAILY [facility] TO [facility] Last Admin: 02/11/19 08:47 Dose: 10 mg Diltiazem HCl (Cardizem) 30 mg PO TID [facility]END[facility] TO [facility] Last Admin: 02/12/19 08:20 Dose: 30 mg Docusate Sodium (Colace) 100 mg PO Q12 [facility]END[facility] TO [facility] Last Admin: 02/12/19 08:21 Dose: 100 mg Famotidine (Pepcid) 20 mg PO BID [facility] Last Admin: 02/12/19 08:26 Dose: 20 mg Guaifenesin (Mucinex [place]) 600 mg PO Q12 [facility]END[facility] Last Admin: 02/12/19 08:26 Dose: 600 mg Heparin Sodium (Porcine) (Heparin) 5,000 units SC Q12 [facility]END[facility] TO [facility]; Protocol Last Admin: 02/12/19 08:24 Dose: 5,000 units Hydroxychloroquine Sulfate (Plaquenil) 200 mg PO DAILY [facility]; Protocol Last Admin: 02/08/19 08:46 Dose: 200 mg Insulin Human Regular (Humulin R) 0 units SC [facility] PENDING SALE TO [facility]; Protocol Last Admin: 02/11/19 22:55 Dose: Not Given Ipratropium [place] (Atrovent) 0.5 mg IH RQID PEND[facility] SALE TO [facility] Last Admin: 02/12/19 08:22 Dose: 0.5 mg Lactulose (Enulose) 20 gm PO DAILY PRN PRN Reason: Constipation Levalbuterol HCl (Xopenex) 1.25 mg INH RQID [facility] Last Admin: 02/12/19 08:22 Dose: 1.25 mg Levalbuterol HCl (Xopenex) 1.25 mg INH RQ4 PRN PRN Reason: Shortness of Breath Last Admin: 02/11/19 22:15 Dose: 1.25 mg Methylprednisolone (Solu-Medrol) 30 mg IVP Q12 [facility]END[facility] Last Admin: 02/12/19 08:27 Dose: 30 mg Montelukast Sodium (Singulair) 10 mg PO HS [facility] Last Admin: 02/11/19 21:05 Dose: 10 mg Tamsulosin HCl (Flomax) 0.4 mg PO Q12 [facility] Last Admin: 02/12/19 08:23 Dose: 0.4 mg Temazepam (Restoril) 15 mg PO HS PRN PRN Reason: Insomnia Last Admin: 02/11/19 21:42 Dose: 15 mg - Labs Labs: 02/12/19 05:19 02/12/19 05:19 PT 9.7 Seconds (9.8-13.1) L 02/03/19 19:35 INR 0.9 02/03/19 19:35 APTT 31.2 Seconds (25.6-37.1) 02/11/19 16:24 Assessment and Plan (1) Pneumonia Status: Acute (2) Acute on chronic respiratory failure with hypoxemia Status: Acute (3) Hypercapnic respiratory failure Status: Chronic
[2019-02-12] MEDS ORDERED: Digoxin 500 mcg/2ml (0.5 mg/2ml) Inj IVP ONE ×2 (12:04→20:00)
[2019-02-12] MEDS: Insulin Regular 100 units/ml SC SCH ×3 (12:12→21:07)
--- NOTE | 2019-02-12 12:21 | CP.CCUPN ---
CCU Subjective - Physician Review Subjective (Free Text): 02/12/19 11:57 The patient was Seen/interviewed and examined by me at the bedside during ICU round, Medical records reviewed and Management issues were discussed and formulated with the house staff. Events reviewed 73 years old Male with past medical history of HTN, Hypercholesterolemia, Hyperlipidemia, Arthritis (BACK), Asthma, Back Problems, Bronchitis, CAD, COPD, Dementia, Diabetes, Fractures (Hip), Pneumonia, Rheumatoid Arthritis, Sleep Apnea and Alzheimer's Disease Who presents to the ED for an evaluation of shortness of breath onset for four days associated with clear sputum Chest X Ray shows Stable RLL infiltrate with effusion and persistence of the LLL atelectasis Patient was initially Admitted to ICU with Sepsis from Community Acquired pneumonia with Pleural effusion Patient was on Zovirax and Airborne precautions for (+) Herpes Zoster. His clinical and respiratory status improved and he was transferred out of the in ICU Patient was transferred back to the intensive care unit yesterday for tachycardia and chest pain, vital sign at that time was 96/64, heart rate of 160, afebrile, saturation of 97% Patient received IV fluid bolus of total 500 mL blood pressure did not improve and he was transferred to back to the ICU This morning patient is still in A. fib with RVR, on p.o. Cardizem that was switched to Cardizem drip He also received 1 dose of digoxin 0.25 mg IVP Patient is comfortable, in no apparent distress Less SOB, No chest pain Afebrile overnight Last 24H I&O 1130/300 CCU Objective - Vital Signs / Intake & Output Vital Signs (Last 4 hours): Vital Signs Temp Pulse Resp BP Pulse Ox 02/12/19 10:00 132 H 19 96/40 L 93 L 02/12/19 08:20 115 H 22 120/68 97 02/12/19 08:00 97.5 F L 107 H 20 120/68 97 Intake and Output (Last 8hrs): Intake & Output 02/11/19 02/12/19 02/12/19 22:59 06:59 14:59 Intake Total 1130 Output Total 300 Balance 830 Intake: IV 1000 Oral 130 Output: Urine 300 Urine, Voided 300 - Physical Exam Head: Positive for: Atraumatic, Normocephalic Pupils: Positive for: PERRL Extroacular Muscles: Positive for: EOMI Conjunctiva: Positive for: Normal. Negative for: Injected, Icteric Mouth: Positive for: Moist Mucous Membranes Nose (Internal): Positive for: Normal Inspection Neck: Positive for: Normal Range of Motion, Trachea Midline. Negative for: Meningeal Signs, MIDLINE TENDERNESS, Paraspinal Tenderness, JVD, Lymphadenopathy, Bruit, Other Respiratory/Chest: Positive for: Good Air Exchange, Decreased Breath Sounds. Negative for: Respiratory Distress, Accessory Muscle Use, Wheezes Cardiovascular: Positive for: Irregular Rhythm, Tachycardic Abdomen: Positive for: Normal Bowel Sounds. Negative for: Tenderness, Distention Upper Extremity: Positive for: Normal Inspection Lower Extremity: Positive for: Normal Inspection Psychiatric: Positive for: Alert - Medications Active Medications: Active Medications Generic Name Dose Route Start Last Admin Trade Name Freq PRN Reason Stop Dose Admin Acetaminophen 650 mg 02/03/19 23:27 02/11/19 11:06 Tylenol 325mg Tab PO 650 mg Q6 PRN Administration Fever >100.4 F Acetaminophen 650 mg 02/03/19 23:28 02/11/19 17:53 Tylenol 325mg Tab PO 650 mg Q6 PRN Administration Pain, Mild (1-3) Acetaminophen/Butalbital/Caffeine 1 tab 02/10/19 18:00 02/12/19 05:00 Fioricet PO Not Given Q6 [facility] Acetazolamide 250 mg 02/09/19 09:00 02/12/19 08:21 Diamox 250 Mg Tab PO 250 mg BID [facility] Administration Acyclovir 1 applic 02/04/19 09:00 02/12/19 08:28 Zovirax 5% Oint EXT 1 applic QID [facility] Administration Atorvastatin Calcium 20 mg 02/04/19 22:00 02/11/19 21:04 Lipitor PO 20 mg HS [facility]EMIO Administration Baclofen 10 mg 02/04/19 09:00 02/11/19 08:47 Lioresal PO 10 mg DAILY [facility] Administration Docusate Sodium 100 mg 02/04/19 09:00 02/12/19 08:21 Colace PO 100 mg Q12 [facility] Administration Famotidine 20 mg 02/04/19 09:00 02/12/19 08:26 Pepcid PO 20 mg BID [facility] Administration Guaifenesin 600 mg 02/04/19 09:00 02/12/19 08:26 Mucinex La PO 600 mg Q12 [facility] Administration Heparin Sodium (Porcine) 5,000 units 02/11/19 21:00 02/12/19 08:24 Heparin SC 5,000 units Q12 [facility]IO Administration Protocol Hydroxychloroquine Sulfate 200 mg 02/04/19 09:00 02/08/19 08:46 Plaquenil PO 200 mg DAILY [facility] Administration Protocol Diltiazem HCl 125 mg/ Sodium 125 mls @ 5 mls/hr 02/12/19 09:19 02/12/19 09:50 Chloride IV 02/13/19 09:18 5 mg/hr .Q24H ONE 5 mls/hr Administration Protocol 5 MG/HR Insulin Human Regular 0 units 02/04/19 07:30 02/11/19 22:55 Humulin R SC Not Given ACHS [facility] Protocol Ipratropium [place] 0.5 mg 02/11/19 22:00 02/12/19 08:22 Atrovent IH 0.5 mg RQID [facility]EMIO Administration Lactulose 20 gm 02/04/19 13:54 Enulose PO DAILY PRN Constipation Levalbuterol HCl 1.25 mg 02/11/19 20:52 02/11/19 22:15 Xopenex INH 1.25 mg RQ4 PRN Administration Shortness of Breath Methylprednisolone 30 mg 02/07/19 09:30 02/12/19 08:27 Solu-Medrol IVP 30 mg Q12 [facility] Administration Montelukast Sodium 10 mg 02/04/19 22:00 02/11/19 21:05 Singulair PO 10 mg HS [facility] Administration Tamsulosin HCl 0.4 mg 02/04/19 21:00 02/12/19 08:23 Flomax PO 0.4 mg Q12 [facility] Administration Temazepam 15 mg 02/11/19 21:11 02/11/19 21:42 Restoril PO 15 mg HS PRN Administration Insomnia - Patient Studies Lab Studies: Microbiology Studies 02/09/19 19:00 MRSA Culture (Admit) - Final Naris MRSA NOT DETECTED Lab Studies 02/12/19 02/12/19 02/12/19 Range/Units 11:09 10:29 07:00 WBC (4.8-10.8) K/uL RBC (4.40-5.90) Mil/uL Hgb (12.0-18.0) g/dL Hct (35.0-51.0) % MCV (80.0-94.0) fl MCH (27.0-31.0) pg MCHC (33.0-37.0) g/dL RDW (11.5-14.5) % Plt Count (130-400) K/uL APTT (25.6-37.1) Seconds Sodium (132-148) mmol/l Potassium (3.6-5.0) MMOL/L Chloride (98-107) mmol/L Carbon Dioxide (22-30) mmol/L Anion Gap (10-20) BUN (9-20) mg/dl Creatinine (0.8-1.5) mg/dl Est GFR ( Amer) Est GFR (Non-Af Amer) POC Glucose (mg/dL) 139 H 127 H (65-110) mg/dL Random Glucose (75-110) mg/dL Calcium (8.4-10.2) mg/dL Free T4 1.25 (0.78-2.19) ng/dL Digoxin (0.8-2.0) ng/mL 02/12/19 02/12/19 02/11/19 Range/Units 05:19 05:19 22:34 WBC 2.0 L* (4.8-10.8) K/uL RBC 3.09 L (4.40-5.90) Mil/uL Hgb 10.0 L (12.0-18.0) g/dL Hct 31.5 L (35.0-51.0) % MCV 102.1 H (80.0-94.0) fl MCH 32.3 H (27.0-31.0) pg MCHC 31.6 L (33.0-37.0) g/dL RDW 18.2 H (11.5-14.5) % Plt Count 62 L (130-400) K/uL APTT (25.6-37.1) Seconds Sodium 137 (132-148) mmol/l Potassium 4.2 (3.6-5.0) MMOL/L Chloride 102 (98-107) mmol/L Carbon Dioxide 33 H (22-30) mmol/L Anion Gap 6 L (10-20) BUN 15 (9-20) mg/dl Creatinine 0.7 L (0.8-1.5) mg/dl Est GFR ( Amer) > 60 Est GFR (Non-Af Amer) > 60 POC Glucose (mg/dL) 115 H (65-110) mg/dL Random Glucose 112 H (75-110) mg/dL Calcium 8.9 (8.4-10.2) mg/dL Free T4 (0.78-2.19) ng/dL Digoxin (0.8-2.0) ng/mL 02/11/19 02/11/19 02/11/19 Range/Units 16:44 16:24 16:24 WBC (4.8-10.8) K/uL RBC (4.40-5.90) Mil/uL Hgb (12.0-18.0) g/dL Hct (35.0-51.0) % MCV (80.0-94.0) fl MCH (27.0-31.0) pg MCHC (33.0-37.0) g/dL RDW (11.5-14.5) % Plt Count (130-400) K/uL APTT 31.2 (25.6-37.1) Seconds Sodium (132-148) mmol/l Potassium (3.6-5.0) MMOL/L Chloride (98-107) mmol/L Carbon Dioxide (22-30) mmol/L Anion Gap (10-20) BUN (9-20) mg/dl Creatinine (0.8-1.5) mg/dl Est GFR ( Amer) Est GFR (Non-Af Amer) POC Glucose (mg/dL) 137 H (65-110) mg/dL Random Glucose (75-110) mg/dL Calcium (8.4-10.2) mg/dL Free T4 (0.78-2.19) ng/dL Digoxin 1.1 (0.8-2.0) ng/mL Laboratory Results - last 24 hr 02/11/19 02/11/19 02/11/19 16:24 16:24 16:44 WBC RBC Hgb Hct MCV MCH MCHC RDW Plt Count APTT 31.2 Sodium Potassium Chloride Carbon Dioxide Anion Gap BUN Creatinine Est GFR ( Amer) Est GFR (Non-Af Amer) POC Glucose (mg/dL) 137 H Random Glucose Calcium Free T4 Digoxin 1.1 02/11/19 02/12/19 02/12/19 22:34 05:19 05:19 WBC 2.0 L* RBC 3.09 L Hgb 10.0 L Hct 31.5 L MCV 102.1 H MCH 32.3 H MCHC 31.6 L RDW 18.2 H Plt Count 62 L APTT Sodium 137 Potassium 4.2 Chloride 102 Carbon Dioxide 33 H Anion Gap 6 L BUN 15 Creatinine 0.7 L Est GFR ( Amer) > 60 Est GFR (Non-Af Amer) > 60 POC Glucose (mg/dL) 115 H Random Glucose 112 H Calcium 8.9 Free T4 Digoxin 02/12/19 02/12/19 02/12/19 07:00 10:29 11:09 WBC RBC Hgb Hct MCV MCH MCHC RDW Plt Count APTT Sodium Potassium Chloride Carbon Dioxide Anion Gap BUN Creatinine Est GFR ( Amer) Est GFR (Non-Af Amer) POC Glucose (mg/dL) 127 H 139 H Random Glucose Calcium Free T4 1.25 Digoxin Radiology Impressions: Radiology Impressions Extremity Ultrasound 02/10/19 19:03 IMPRESSION: No evidence of deep venous thrombosis. Chest X-Ray 02/11/19 15:03 IMPRESSION: No interval change in elevated right hemidiaphragm, cardiomegaly and limited right pleural effusion with none on the left. Pleural fibrosis not excluded the right base. Potential atelectasis favored over infiltrate right base. Fibrotic changes again seen left base. Fingerstick Blood Sugar Results: 115 Review of Systems - Cardiovascular Cardiovascular: absent: Acrocyanosis, Chest Pain, Chest Pain at Rest, Chest Pain with Activity, Claudication, Diaphoresis - Respiratory Respiratory: Cough, Dyspnea, Dyspnea on Exertion. absent: Hemoptysis, Wheezing, Snoring Critical Care Progress Note - Extremities/Vascular Does the Patient have a Central Venous Catheter?: No Does the Patient need a Central Venous Catheter?: No Does the Patient have a Finn Catheter?: No Does the Patient need a Finn Catheter?: No - Nutrition Nutrition: Nutrition Category Date Time Status Dysphagia/Modified Consistency Diet [DIET] Diets 02/05/19 Dinner Active Assessment/Plan (1) Paroxysmal atrial fibrillation with rapid ventricular response Current Visit: Yes Status: Acute Priority: High Comment: Patient was likely a paroxysmal A. fib /A flutter, started on Cardizem drip today Cardiology consult appreciated Trend cardiac enzymes Electrolyte reviewed (2) Acute on chronic respiratory failure with hypoxemia Current Visit: Yes Status: Acute Priority: High Comment: Multifactorial from COPD, interstitial lung disease, pneumonia with sepsis and chronic right-sided pleural effusion Patient completed course of intravenous antibiotic Interventional radiology consult for diagnostic and therapeutic thoracentesis (3) HCAP (healthcare-associated pneumonia) Current Visit: Yes Status: Acute Priority: High Comment: Completed course of IV Vancomycin, Cefepime and Zithromax (4) Atelectasis, bilateral Current Visit: Yes Status: Acute Priority: High (5) CHF (congestive heart failure) Current Visit: Yes Status: Acute Priority: High (6) Pleural effusion Current Visit: Yes Status: Acute (7) COPD (chronic obstructive pulmonary disease) Current Visit: Yes Status: Chronic Priority: High Comment: Continue nebulizer therapy. Wean off IV Steroids (8) ILD (interstitial lung disease) Current Visit: Yes Status: Chronic Priority: High Comment: Likely related to RA. Needs continued follow up. - Assessment and Plan (Free Text) Assessment: # HOB maintained at 30 degrees. # Encouraged use of IS # GI/DVT PPX # Stress Ulcer prophylaxis with Pepcid 20 mg PO BID # DVT prophylaxis with SCD, Heparin) 5,000 units SC Q12 # Code Status: Full code # Total critical care time 35 minutes
--- NOTE | 2019-02-12 18:24 | PN ---
DATE: 02/12/2019 SUBJECTIVE: The patient is still short of breath. Hypertension has improved. He is in sinus tachycardia with periods of rapid atrial fibrillation and questionable rounds of multifocal atrial tachycardia. He denies any associated chest pain. PHYSICAL EXAMINATION: VITAL SIGNS: Blood pressure 94/52, heart rate of 135, temperature 98.1, respirations 23. HEENT: Normocephalic. CHEST: Bilateral rhonchi. HEART: S1, S2. Regular. ABDOMEN: Soft. EXTREMITIES: No edema. LABORATORY DATA: Today SMA-7: Sodium 137, potassium 4.2, chloride 102, CO2 of 33, glucose 112, BUN 16, creatinine 0.7. Today, hemoglobin and hematocrit 10 and 31.5, white count 2, platelet count has dropped to 62,000. Yesterday's chest x-ray was suggestive of right lower lobe infiltrate. The official report stated no interval change and elevated right diaphragm, cardiomegaly and limited right pleural effusion with none on the left. Pleural fibrosis, not excluded at the right base. Potential atelectasis favored over infiltrate right base. Fibrotic changes again seen in the left base. ASSESSMENT: 1. Paroxysmal atrial fibrillation and atrial flutter. 2. Runs of multifocal atrial tachycardia. 3. Pancytopenia with worsening thrombocytopenia today. 4. Coronary artery disease with history of coronary artery bypass surgery in the past. 5. Rheumatoid arthritis. RECOMMENDATIONS: Continue current bronchodilators, continue Cardizem infusion 5 mg per hour. Continue subcutaneous heparin 5000 units every 12 hours if approved by technical support consultant oncologist/percussion tuner, Dr. Diaz. Continue Plaquenil 200 mg daily, Singulair 10 mg at bedtime, Solu-Medrol 30 mg intravenously every 12 hours. The patient's TSH level was slightly below normal at 0.24; however, a total T4 and free T4 are within normal limits. Geo Whitmore MD
[2019-02-12] MEDS: POLYETHYLENE GLYCOL 3350 17 GM/Dose PACKET PO SCH (21:05)
--- NOTE | 2019-02-12 21:20 | PN ---
DATE: 02/12/2019 SUBJECTIVE: The patient is seen today 02/12/2019. He is still having exertional shortness of breath even with effort and on eating. PHYSICAL EXAMINATION: VITAL SIGNS: Blood pressure 192/47, temperature 98.4, respiratory rate 20 and pulse 126. HEENT: Pupils equal, reactive to light. Normal-appearing mucosa of the conjunctivae. Oropharynx and nasal membrane mucosa. NECK: Supple. No JVD, no carotid bruit. No lymph node. No thyromegaly. CHEST AND LUNGS: Bilateral symmetrical expansion. Good air exchange. Scattered rhonchi all over lung amos. CARDIOVASCULAR SYSTEM: PMI not localized. S1, S2, no additional sounds. ABDOMEN: Normoactive bowel sounds. No tenderness, no organomegaly. No masses. EXTREMITIES: No cyanosis, no clubbing, no edema. IRRIGATOR HEAD: The patient is awake and oriented and moves all extremities. ASSESSMENT: 1. Atrial fibrillation/flutter/MAT with rapid ventricular rate. 2. Hypercapnic respiratory failure. 3. Exacerbation of chronic obstructive pulmonary disease. 4. Pneumonia. 5. Rheumatoid arthritis. PLAN: Continue Cardizem drip and follow Cardiology recommendations. Discussed with the reservations sales supervisor. The patient is off antibiotics at this point and he is on Solu-Medrol 30 mg every 12 hours. Michaela Wood MD
--- NOTE | 2019-02-12 21:22 | CP.PCM.PN ---
Subjective - Date & Time of Evaluation Date of Evaluation: 02/09/19 Time of Evaluation: 12:00 - Subjective Subjective: No complaints. Objective - Vital Signs/Intake and Output Vital Signs (last 24 hours): Temp Pulse Resp BP Pulse Ox 98.4 F 120 H 28 H 120/62 96 02/12/19 15:31 02/12/19 18:00 02/12/19 18:00 02/12/19 18:00 02/12/19 18:00 Intake and Output: 02/12/19 02/13/19 18:59 06:59 Intake Total 120 Output Total 200 300 Balance -80 -300 - Medications Medications: Current Medications Acetaminophen (Tylenol 325mg Tab) 650 mg PO Q6 PRN PRN Reason: Fever >100.4 F Last Admin: 02/11/19 11:06 Dose: 650 mg Acetaminophen (Tylenol 325mg Tab) 650 mg PO Q6 PRN PRN Reason: Pain, Mild (1-3) Last Admin: 02/11/19 17:53 Dose: 650 mg Acetaminophen/Butalbital/Caffeine (Fioricet) 1 tab PO Q6 [facility] Last Admin: 02/12/19 21:06 Dose: 1 tab Acyclovir (Zovirax 5% Oint) 1 applic EXT QID [facility] Last Admin: 02/12/19 21:08 Dose: 1 applic Atorvastatin Calcium (Lipitor) 20 mg PO HS [facility] Last Admin: 02/12/19 21:05 Dose: 20 mg Baclofen (Lioresal) 10 mg PO DAILY [facility] Last Admin: 02/12/19 12:13 Dose: 10 mg Docusate Sodium (Colace) 100 mg PO Q12 [facility] Last Admin: 02/12/19 20:18 Dose: 100 mg Famotidine (Pepcid) 20 mg PO BID [facility] Last Admin: 02/12/19 16:32 Dose: 20 mg Guaifenesin (Mucinex La) 600 mg PO Q12 [facility] Last Admin: 02/12/19 20:17 Dose: 600 mg Heparin Sodium (Porcine) (Heparin) 5,000 units SC Q12 [facility]; Protocol Last Admin: 02/12/19 20:20 Dose: 5,000 units Hydroxychloroquine Sulfate (Plaquenil) 200 mg PO DAILY [facility]; Protocol Last Admin: 02/08/19 08:46 Dose: 200 mg Diltiazem HCl 125 mg/ Sodium (Chloride) 125 mls @ 5 mls/hr IV .Q24H [facility]; Protocol Stop: 02/13/19 09:18 Last Titration: 02/12/19 18:47 Dose: 7.5 mg/hr, 7.5 mls/hr Insulin Human Regular (Humulin R) 0 units SC ACHS [facility]; Protocol Last Admin: 02/12/19 21:07 Dose: Not Given Ipratropium [place] (Atrovent) 0.5 mg IH RQID [facility] Last Admin: 02/12/19 19:10 Dose: 0.5 mg Lactulose (Enulose) 20 gm PO DAILY PRN PRN Reason: Constipation Levalbuterol HCl (Xopenex) 1.25 mg INH RQ4 PRN PRN Reason: Shortness of Breath Last Admin: 02/11/19 22:15 Dose: 1.25 mg Methylprednisolone (Solu-Medrol) 30 mg IVP Q12 [facility] Last Admin: 02/12/19 20:25 Dose: 30 mg Montelukast Sodium (Singulair) 10 mg PO HS [facility] Last Admin: 02/11/19 21:05 Dose: 10 mg Polyethylene Glycol (Miralax) 17 gm PO HS [facility] Last Admin: 02/12/19 21:05 Dose: 17 gm Tamsulosin HCl (Flomax) 0.4 mg PO Q12 [facility] Last Admin: 02/12/19 20:19 Dose: 0.4 mg Temazepam (Restoril) 15 mg PO HS PRN PRN Reason: Insomnia Last Admin: 02/11/19 21:42 Dose: 15 mg - Labs Labs: 02/12/19 05:19 02/12/19 05:19 PT 9.7 Seconds (9.8-13.1) L 02/03/19 19:35 INR 0.9 02/03/19 19:35 APTT 31.2 Seconds (25.6-37.1) 02/11/19 16:24 - Head Exam Head Exam: ATRAUMATIC - Eye Exam Eye Exam: Normal appearance - ENT Exam ENT Exam: Mucous Membranes Dry - Respiratory Exam Respiratory Exam: Decreased Breath Sounds - Cardiovascular Exam Cardiovascular Exam: +S1, +S2 - GI/Abdominal Exam GI & Abdominal Exam: Normal Bowel Sounds Assessment and Plan (1) Pancytopenia Assessment & Plan: exacerbated by acute illness, polypharmacy prior improvement in cytopenias when holding hydroxychloroquine; on hold normal iron/b12/folate stores transfusion support PRN no significant neutropenia Status: Acute (2) Pancreatic mass Assessment & Plan: prior elevation in chromogranin A level; repeated ?neuroendocrine tumor not a good surgical candidate, will cont. to monitor Status: Acute
--- NOTE | 2019-02-12 21:26 | CP.PCM.PN ---
Subjective - Date & Time of Evaluation Date of Evaluation: 02/10/19 Time of Evaluation: 19:00 - Subjective Subjective: Vented Objective - Vital Signs/Intake and Output Vital Signs (last 24 hours): Temp Pulse Resp BP Pulse Ox 98.4 F 120 H 28 H 120/62 96 02/12/19 15:31 02/12/19 18:00 02/12/19 18:00 02/12/19 18:00 02/12/19 18:00 Intake and Output: 02/12/19 02/13/19 18:59 06:59 Intake Total 120 Output Total 200 300 Balance -80 -300 - Medications Medications: Current Medications Acetaminophen (Tylenol 325mg Tab) 650 mg PO Q6 PRN PRN Reason: Fever >100.4 F Last Admin: 02/11/19 11:06 Dose: 650 mg Acetaminophen (Tylenol 325mg Tab) 650 mg PO Q6 PRN PRN Reason: Pain, Mild (1-3) Last Admin: 02/11/19 17:53 Dose: 650 mg Acetaminophen/Butalbital/Caffeine (Fioricet) 1 tab PO Q6 [facility] Last Admin: 02/12/19 21:06 Dose: 1 tab Acyclovir (Zovirax 5% Oint) 1 applic EXT QID [facility] Last Admin: 02/12/19 21:08 Dose: 1 applic Atorvastatin Calcium (Lipitor) 20 mg PO HS [facility] Last Admin: 02/12/19 21:05 Dose: 20 mg Baclofen (Lioresal) 10 mg PO DAILY [facility] Last Admin: 02/12/19 12:13 Dose: 10 mg Docusate Sodium (Colace) 100 mg PO Q12 [facility] Last Admin: 02/12/19 20:18 Dose: 100 mg Famotidine (Pepcid) 20 mg PO BID [facility] Last Admin: 02/12/19 16:32 Dose: 20 mg Guaifenesin (Mucinex La) 600 mg PO Q12 [facility] Last Admin: 02/12/19 20:17 Dose: 600 mg Heparin Sodium (Porcine) (Heparin) 5,000 units SC Q12 [facility]; Protocol Last Admin: 02/12/19 20:20 Dose: 5,000 units Hydroxychloroquine Sulfate (Plaquenil) 200 mg PO DAILY [facility]; Protocol Last Admin: 02/08/19 08:46 Dose: 200 mg Diltiazem HCl 125 mg/ Sodium (Chloride) 125 mls @ 5 mls/hr IV .Q24H [facility]; Protocol Stop: 02/13/19 09:18 Last Titration: 02/12/19 18:47 Dose: 7.5 mg/hr, 7.5 mls/hr Insulin Human Regular (Humulin R) 0 units SC ACHS [facility]; Protocol Last Admin: 02/12/19 21:07 Dose: Not Given Ipratropium [place] (Atrovent) 0.5 mg IH RQID [facility] Last Admin: 02/12/19 19:10 Dose: 0.5 mg Lactulose (Enulose) 20 gm PO DAILY PRN PRN Reason: Constipation Levalbuterol HCl (Xopenex) 1.25 mg INH RQ4 PRN PRN Reason: Shortness of Breath Last Admin: 02/11/19 22:15 Dose: 1.25 mg Methylprednisolone (Solu-Medrol) 30 mg IVP Q12 [facility] Last Admin: 02/12/19 20:25 Dose: 30 mg Montelukast Sodium (Singulair) 10 mg PO HS [facility] Last Admin: 02/11/19 21:05 Dose: 10 mg Polyethylene Glycol (Miralax) 17 gm PO HS [facility] Last Admin: 02/12/19 21:05 Dose: 17 gm Tamsulosin HCl (Flomax) 0.4 mg PO Q12 [facility] Last Admin: 02/12/19 20:19 Dose: 0.4 mg Temazepam (Restoril) 15 mg PO HS PRN PRN Reason: Insomnia Last Admin: 02/11/19 21:42 Dose: 15 mg - Labs Labs: 02/12/19 05:19 02/12/19 05:19 PT 9.7 Seconds (9.8-13.1) L 02/03/19 19:35 INR 0.9 02/03/19 19:35 APTT 31.2 Seconds (25.6-37.1) 02/11/19 16:24 - Head Exam Head Exam: ATRAUMATIC - Eye Exam Eye Exam: Normal appearance - ENT Exam ENT Exam: Mucous Membranes Dry - Respiratory Exam Respiratory Exam: Decreased Breath Sounds - Cardiovascular Exam Cardiovascular Exam: +S1, +S2 - GI/Abdominal Exam GI & Abdominal Exam: Normal Bowel Sounds Assessment and Plan (1) Pancytopenia Assessment & Plan: exacerbated by acute illness, polypharmacy prior improvement in cytopenias when holding hydroxychloroquine; on hold normal iron/b12/folate stores transfusion support PRN no significant neutropenia Status: Acute (2) Pancreatic mass Assessment & Plan: prior elevation in chromogranin A level; repeated ?neuroendocrine tumor not a good surgical candidate, will cont. to monitor Status: Acute
--- NOTE | 2019-02-12 21:28 | CP.PCM.PN ---
Subjective - Date & Time of Evaluation Date of Evaluation: 02/10/19 Time of Evaluation: 16:00 - Subjective Subjective: No complaints. Objective - Vital Signs/Intake and Output Vital Signs (last 24 hours): Temp Pulse Resp BP Pulse Ox 98.4 F 120 H 28 H 120/62 96 02/12/19 15:31 02/12/19 18:00 02/12/19 18:00 02/12/19 18:00 02/12/19 18:00 Intake and Output: 02/12/19 02/13/19 18:59 06:59 Intake Total 120 Output Total 200 300 Balance -80 -300 - Medications Medications: Current Medications Acetaminophen (Tylenol 325mg Tab) 650 mg PO Q6 PRN PRN Reason: Fever >100.4 F Last Admin: 02/11/19 11:06 Dose: 650 mg Acetaminophen (Tylenol 325mg Tab) 650 mg PO Q6 PRN PRN Reason: Pain, Mild (1-3) Last Admin: 02/11/19 17:53 Dose: 650 mg Acetaminophen/Butalbital/Caffeine (Fioricet) 1 tab PO Q6 [facility] Last Admin: 02/12/19 21:06 Dose: 1 tab Acyclovir (Zovirax 5% Oint) 1 applic EXT QID [facility] Last Admin: 02/12/19 21:08 Dose: 1 applic Atorvastatin Calcium (Lipitor) 20 mg PO HS [facility] Last Admin: 02/12/19 21:05 Dose: 20 mg Baclofen (Lioresal) 10 mg PO DAILY [facility] Last Admin: 02/12/19 12:13 Dose: 10 mg Docusate Sodium (Colace) 100 mg PO Q12 [facility] Last Admin: 02/12/19 20:18 Dose: 100 mg Famotidine (Pepcid) 20 mg PO BID [facility] Last Admin: 02/12/19 16:32 Dose: 20 mg Guaifenesin (Mucinex La) 600 mg PO Q12 [facility] Last Admin: 02/12/19 20:17 Dose: 600 mg Heparin Sodium (Porcine) (Heparin) 5,000 units SC Q12 [facility]; Protocol Last Admin: 02/12/19 20:20 Dose: 5,000 units Hydroxychloroquine Sulfate (Plaquenil) 200 mg PO DAILY [facility]; Protocol Last Admin: 02/08/19 08:46 Dose: 200 mg Diltiazem HCl 125 mg/ Sodium (Chloride) 125 mls @ 5 mls/hr IV .Q24H [facility]; Protocol Stop: 02/13/19 09:18 Last Titration: 02/12/19 18:47 Dose: 7.5 mg/hr, 7.5 mls/hr Insulin Human Regular (Humulin R) 0 units SC ACHS [facility]; Protocol Last Admin: 02/12/19 21:07 Dose: Not Given Ipratropium [place] (Atrovent) 0.5 mg IH RQID [facility] Last Admin: 02/12/19 19:10 Dose: 0.5 mg Lactulose (Enulose) 20 gm PO DAILY PRN PRN Reason: Constipation Levalbuterol HCl (Xopenex) 1.25 mg INH RQ4 PRN PRN Reason: Shortness of Breath Last Admin: 02/11/19 22:15 Dose: 1.25 mg Methylprednisolone (Solu-Medrol) 30 mg IVP Q12 [facility] Last Admin: 02/12/19 20:25 Dose: 30 mg Montelukast Sodium (Singulair) 10 mg PO HS [facility] Last Admin: 02/11/19 21:05 Dose: 10 mg Polyethylene Glycol (Miralax) 17 gm PO HS [facility] Last Admin: 02/12/19 21:05 Dose: 17 gm Tamsulosin HCl (Flomax) 0.4 mg PO Q12 [facility] Last Admin: 02/12/19 20:19 Dose: 0.4 mg Temazepam (Restoril) 15 mg PO HS PRN PRN Reason: Insomnia Last Admin: 02/11/19 21:42 Dose: 15 mg - Labs Labs: 02/12/19 05:19 02/12/19 05:19 PT 9.7 Seconds (9.8-13.1) L 02/03/19 19:35 INR 0.9 02/03/19 19:35 APTT 31.2 Seconds (25.6-37.1) 02/11/19 16:24 - Head Exam Head Exam: ATRAUMATIC - Eye Exam Eye Exam: Normal appearance - ENT Exam ENT Exam: Mucous Membranes Dry - Respiratory Exam Respiratory Exam: Decreased Breath Sounds - Cardiovascular Exam Cardiovascular Exam: +S1, +S2 - GI/Abdominal Exam GI & Abdominal Exam: Normal Bowel Sounds Assessment and Plan (1) Pancytopenia Assessment & Plan: exacerbated by acute illness, polypharmacy prior improvement in cytopenias when holding hydroxychloroquine; on hold normal iron/b12/folate stores transfusion support PRN no significant neutropenia Status: Acute (2) Pancreatic mass Assessment & Plan: prior elevation in chromogranin A level; repeated ?neuroendocrine tumor not a good surgical candidate, will cont. to monitor Status: Acute
--- NOTE | 2019-02-12 21:30 | CP.PCM.PN ---
Subjective - Date & Time of Evaluation Date of Evaluation: 02/12/19 Time of Evaluation: 19:00 - Subjective Subjective: No complaints. Objective - Vital Signs/Intake and Output Vital Signs (last 24 hours): Temp Pulse Resp BP Pulse Ox 98.4 F 120 H 28 H 120/62 96 02/12/19 15:31 02/12/19 18:00 02/12/19 18:00 02/12/19 18:00 02/12/19 18:00 Intake and Output: 02/12/19 02/13/19 18:59 06:59 Intake Total 120 Output Total 200 300 Balance -80 -300 - Medications Medications: Current Medications Acetaminophen (Tylenol 325mg Tab) 650 mg PO Q6 PRN PRN Reason: Fever >100.4 F Last Admin: 02/11/19 11:06 Dose: 650 mg Acetaminophen (Tylenol 325mg Tab) 650 mg PO Q6 PRN PRN Reason: Pain, Mild (1-3) Last Admin: 02/11/19 17:53 Dose: 650 mg Acetaminophen/Butalbital/Caffeine (Fioricet) 1 tab PO Q6 [facility] Last Admin: 02/12/19 21:06 Dose: 1 tab Acyclovir (Zovirax 5% Oint) 1 applic EXT QID [facility] Last Admin: 02/12/19 21:08 Dose: 1 applic Atorvastatin Calcium (Lipitor) 20 mg PO HS [facility] Last Admin: 02/12/19 21:05 Dose: 20 mg Baclofen (Lioresal) 10 mg PO DAILY [facility] Last Admin: 02/12/19 12:13 Dose: 10 mg Docusate Sodium (Colace) 100 mg PO Q12 [facility] Last Admin: 02/12/19 20:18 Dose: 100 mg Famotidine (Pepcid) 20 mg PO BID [facility] Last Admin: 02/12/19 16:32 Dose: 20 mg Guaifenesin (Mucinex La) 600 mg PO Q12 [facility] Last Admin: 02/12/19 20:17 Dose: 600 mg Heparin Sodium (Porcine) (Heparin) 5,000 units SC Q12 [facility]; Protocol Last Admin: 02/12/19 20:20 Dose: 5,000 units Hydroxychloroquine Sulfate (Plaquenil) 200 mg PO DAILY [facility]; Protocol Last Admin: 02/08/19 08:46 Dose: 200 mg Diltiazem HCl 125 mg/ Sodium (Chloride) 125 mls @ 5 mls/hr IV .Q24H [facility]; Protocol Stop: 02/13/19 09:18 Last Titration: 02/12/19 18:47 Dose: 7.5 mg/hr, 7.5 mls/hr Insulin Human Regular (Humulin R) 0 units SC ACHS [facility]; Protocol Last Admin: 02/12/19 21:07 Dose: Not Given Ipratropium [place] (Atrovent) 0.5 mg IH RQID [facility] Last Admin: 02/12/19 19:10 Dose: 0.5 mg Lactulose (Enulose) 20 gm PO DAILY PRN PRN Reason: Constipation Levalbuterol HCl (Xopenex) 1.25 mg INH RQ4 PRN PRN Reason: Shortness of Breath Last Admin: 02/11/19 22:15 Dose: 1.25 mg Methylprednisolone (Solu-Medrol) 30 mg IVP Q12 [facility] Last Admin: 02/12/19 20:25 Dose: 30 mg Montelukast Sodium (Singulair) 10 mg PO HS [facility] Last Admin: 02/11/19 21:05 Dose: 10 mg Polyethylene Glycol (Miralax) 17 gm PO HS [facility] Last Admin: 02/12/19 21:05 Dose: 17 gm Tamsulosin HCl (Flomax) 0.4 mg PO Q12 [facility] Last Admin: 02/12/19 20:19 Dose: 0.4 mg Temazepam (Restoril) 15 mg PO HS PRN PRN Reason: Insomnia Last Admin: 02/11/19 21:42 Dose: 15 mg - Labs Labs: 02/12/19 05:19 02/12/19 05:19 PT 9.7 Seconds (9.8-13.1) L 02/03/19 19:35 INR 0.9 02/03/19 19:35 APTT 31.2 Seconds (25.6-37.1) 02/11/19 16:24 - Head Exam Head Exam: ATRAUMATIC - Eye Exam Eye Exam: Normal appearance - ENT Exam ENT Exam: Mucous Membranes Dry - Respiratory Exam Respiratory Exam: Decreased Breath Sounds - Cardiovascular Exam Cardiovascular Exam: +S1, +S2 - GI/Abdominal Exam GI & Abdominal Exam: Normal Bowel Sounds Assessment and Plan (1) Pancytopenia Assessment & Plan: exacerbated by acute illness, polypharmacy prior improvement in cytopenias when holding hydroxychloroquine; on hold normal iron/b12/folate stores transfusion support PRN no significant neutropenia Status: Acute (2) Pancreatic mass Assessment & Plan: prior elevation in chromogranin A level; repeated ?neuroendocrine tumor not a good surgical candidate, will cont. to monitor Status: Acute
[2019-02-13] MEDS: Apap-Butalbital-Caffeine 325-50-40mg Tab PO SCH ×4 (03:37→21:30)
[2019-02-13 05:19] LABS: BLOOD UREA NITROGEN 16 mg/dl (9-20); CALCIUM 8.7 mg/dL (8.4-10.2); GFR NON-AFRICAN AMERICAN > 60; HEMOGLOBIN 9.5 g/dL (12.0-18.0); MEAN CELL VOLUME 102.6 fl (80.0-94.0); MEAN CORPUSCULAR HGB CONC 31.2 g/dL (33.0-37.0); RBC 2.96 Mil/uL (4.40-5.90); RED CELL DISTRIBUTION WIDTH 18.1 % (11.5-14.5)
[2019-02-13] MEDS: Ipratropium 0.02% Inhal Soln (0.5 mg/2.5 ml) UD IH SCH ×4 (08:00→19:11)
[2019-02-13] MEDS: Levalbuterol 1.25 MG/3 ML Inhal Soln UD INH PRN (08:00)
--- NOTE | 2019-02-13 08:09 | CP.CCUPN ---
CCU Subjective - Physician Review Subjective (Free Text): 02/13/19 07:46 The patient was Seen/interviewed and examined by me at the bedside during ICU round, Medical records reviewed and Management issues were discussed and formulated with the house staff. Events reviewed 73 years old Male with past medical history of HTN, Hypercholesterolemia, Hyperlipidemia, Arthritis (BACK), Asthma, Back Problems, Bronchitis, CAD, COPD, Dementia, Diabetes, Fractures (Hip), Pneumonia, Rheumatoid Arthritis, Sleep Apnea and Alzheimer's Disease Who presents to the ED for an evaluation of shortness of breath onset for four days associated with clear sputum Chest X Ray shows Stable RLL infiltrate with effusion and persistence of the LLL atelectasis Patient was initially Admitted to ICU with Sepsis from Community Acquired pneumonia with Pleural effusion Patient was on Zovirax and Airborne precautions for (+) Herpes Zoster. His clinical and respiratory status improved and he was transferred out of the in ICU Patient was transferred back to the intensive care unit yesterday for tachycardia and chest pain, vital sign at that time was 96/64, heart rate of 160, afebrile, saturation of 97% Patient received IV fluid bolus of total 500 mL blood pressure did not improve and he was transferred to back to the ICU 02/12 morning patient was still in A. fib with RVR, on p.o. Cardizem that was switched to Cardizem drip at 5 mg/H He also received digoxin 0.25 mg IVP x2 doses He reverts back to NSR overnight This morning Patient is more comfortable, in no apparent distress Less SOB, No chest pain Afebrile overnight, Completed course of IV Vancomycin, Cefepime and Zithromax Had BM, Abdomen less distended Last 24H I&O 296/1400 <--1130/300 Scheduled for diagnostic/therapeutic thoracentesis today by IR (likely loculated, also need to R/O empyema) Will restart PO Cardiazem, PO digoxin today and wean off Cardizem drip CCU Objective - Vital Signs / Intake & Output Vital Signs (Last 4 hours): Vital Signs Temp Pulse Resp BP Pulse Ox 02/13/19 07:00 97.5 F L 76 14 123/64 93 L 02/13/19 06:00 77 15 114/74 98 02/13/19 05:00 68 16 109/60 100 02/13/19 04:05 81 02/13/19 04:00 59 L 20 109/60 100 Intake and Output (Last 8hrs): Intake & Output 02/12/19 02/13/19 02/13/19 22:59 06:59 14:59 Intake Total 143 153 Output Total 500 900 Balance -357 -747 Intake: IV 143 153 Output: Urine 500 900 Urine, Voided 500 900 - Physical Exam Head: Positive for: Atraumatic, Normocephalic Pupils: Positive for: PERRL Extroacular Muscles: Positive for: EOMI Conjunctiva: Positive for: Normal. Negative for: Injected, Icteric Mouth: Positive for: Moist Mucous Membranes Nose (Internal): Positive for: Normal Inspection Neck: Positive for: Normal Range of Motion, Trachea Midline. Negative for: Meningeal Signs, MIDLINE TENDERNESS, Paraspinal Tenderness, JVD, Lymphadenopathy, Bruit, Other Respiratory/Chest: Positive for: Good Air Exchange, Decreased Breath Sounds. Negative for: Respiratory Distress, Accessory Muscle Use, Wheezes Cardiovascular: Positive for: Irregular Rhythm, Tachycardic Abdomen: Positive for: Normal Bowel Sounds. Negative for: Tenderness, Distention Upper Extremity: Positive for: Normal Inspection Lower Extremity: Positive for: Normal Inspection Psychiatric: Positive for: Alert - Medications Active Medications: Active Medications Generic Name Dose Route Start Last Admin Trade Name Freq PRN Reason Stop Dose Admin Acetaminophen 650 mg 02/03/19 23:27 02/11/19 11:06 Tylenol 325mg Tab PO 650 mg Q6 PRN Administration Fever >100.4 F Acetaminophen 650 mg 02/03/19 23:28 02/11/19 17:53 Tylenol 325mg Tab PO 650 mg Q6 PRN Administration Pain, Mild (1-3) Acetaminophen/Butalbital/Caffeine 1 tab 02/10/19 18:00 02/13/19 03:37 Fioricet PO 1 tab Q6 [facility] Administration Acyclovir 1 applic 02/04/19 09:00 02/12/19 21:08 Zovirax 5% Oint EXT 1 applic QID [facility] Administration Atorvastatin Calcium 20 mg 02/04/19 22:00 02/12/19 21:05 Lipitor PO 20 mg HS [facility] Administration Baclofen 10 mg 02/04/19 09:00 02/12/19 12:13 Lioresal PO 10 mg DAILY [facility] Administration Docusate Sodium 100 mg 02/04/19 09:00 02/12/19 20:18 Colace PO 100 mg Q12 [facility] Administration Famotidine 20 mg 02/04/19 09:00 02/12/19 16:32 Pepcid PO 20 mg BID [facility] Administration Guaifenesin 600 mg 02/04/19 09:00 02/12/19 20:17 Mucinex La PO 600 mg Q12 [facility] Administration Heparin Sodium (Porcine) 5,000 units 02/12/19 12:26 02/12/19 20:20 Heparin SC 5,000 units Q12 [facility] Administration Protocol Hydroxychloroquine Sulfate 200 mg 02/04/19 09:00 02/08/19 08:46 Plaquenil PO 200 mg DAILY [facility] Administration Protocol Diltiazem HCl 125 mg/ Sodium 125 mls @ 5 mls/hr 02/12/19 09:19 02/13/19 04:30 Chloride IV 02/13/19 09:18 0 mg/hr .Q24H ONE 0 mls/hr Titration Protocol 5 MG/HR Insulin Human Regular 0 units 02/04/19 07:30 02/12/19 21:07 Humulin R SC Not Given ACHS [facility] Protocol Ipratropium [place] 0.5 mg 02/11/19 22:00 02/12/19 19:10 Atrovent IH 0.5 mg RQID [facility] Administration Lactulose 20 gm 02/04/19 13:54 Enulose PO DAILY PRN Constipation Levalbuterol HCl 1.25 mg 02/11/19 20:52 02/11/19 22:15 Xopenex INH 1.25 mg RQ4 PRN Administration Shortness of Breath Methylprednisolone 30 mg 02/07/19 09:30 02/12/19 20:25 Solu-Medrol IVP 30 mg Q12 [facility] Administration Montelukast Sodium 10 mg 02/04/19 22:00 02/13/19 04:54 Singulair PO 10 mg HS [facility] Administration Polyethylene Glycol 17 gm 02/12/19 22:00 02/12/19 21:05 Miralax PO 17 gm HS [facility] Administration Tamsulosin HCl 0.4 mg 02/04/19 21:00 02/12/19 20:19 Flomax PO 0.4 mg Q12 [facility] Administration Temazepam 15 mg 02/11/19 21:11 02/12/19 21:52 Restoril PO 15 mg HS PRN Administration Insomnia - Patient Studies Lab Studies: Lab Studies 02/13/19 02/13/19 02/12/19 Range/Units 05:02 05:02 21:01 WBC 2.0 L* (4.8-10.8) K/uL RBC 2.96 L (4.40-5.90) Mil/uL Hgb 9.5 L (12.0-18.0) g/dL Hct 30.4 L (35.0-51.0) % MCV 102.6 H (80.0-94.0) fl MCH 32.0 H (27.0-31.0) pg MCHC 31.2 L (33.0-37.0) g/dL RDW 18.1 H (11.5-14.5) % Plt Count 73 L (130-400) K/uL Sodium 137 (132-148) mmol/l Potassium 4.2 (3.6-5.0) MMOL/L Chloride 102 (98-107) mmol/L Carbon Dioxide 33 H (22-30) mmol/L Anion Gap 6 L (10-20) BUN 16 (9-20) mg/dl Creatinine 0.6 L (0.8-1.5) mg/dl Est GFR ( Amer) > 60 Est GFR (Non-Af Amer) > 60 POC Glucose (mg/dL) 142 H (65-110) mg/dL Random Glucose 117 H (75-110) mg/dL Calcium 8.7 (8.4-10.2) mg/dL Free T4 (0.78-2.19) ng/dL Free T3 pg/mL (2.77-5.27) pg/mL 02/12/19 02/12/19 02/12/19 Range/Units 15:52 11:09 10:29 WBC (4.8-10.8) K/uL RBC (4.40-5.90) Mil/uL Hgb (12.0-18.0) g/dL Hct (35.0-51.0) % MCV (80.0-94.0) fl MCH (27.0-31.0) pg MCHC (33.0-37.0) g/dL RDW (11.5-14.5) % Plt Count (130-400) K/uL Sodium (132-148) mmol/l Potassium (3.6-5.0) MMOL/L Chloride (98-107) mmol/L Carbon Dioxide (22-30) mmol/L Anion Gap (10-20) BUN (9-20) mg/dl Creatinine (0.8-1.5) mg/dl Est GFR ( Amer) Est GFR (Non-Af Amer) POC Glucose (mg/dL) 187 H 139 H (65-110) mg/dL Random Glucose (75-110) mg/dL Calcium (8.4-10.2) mg/dL Free T4 1.25 (0.78-2.19) ng/dL Free T3 pg/mL (2.77-5.27) pg/mL 02/12/19 02/12/19 Range/Units 10:29 07:00 WBC (4.8-10.8) K/uL RBC (4.40-5.90) Mil/uL Hgb (12.0-18.0) g/dL Hct (35.0-51.0) % MCV (80.0-94.0) fl MCH (27.0-31.0) pg MCHC (33.0-37.0) g/dL RDW (11.5-14.5) % Plt Count (130-400) K/uL Sodium (132-148) mmol/l Potassium (3.6-5.0) MMOL/L Chloride (98-107) mmol/L Carbon Dioxide (22-30) mmol/L Anion Gap (10-20) BUN (9-20) mg/dl Creatinine (0.8-1.5) mg/dl Est GFR ( Amer) Est GFR (Non-Af Amer) POC Glucose (mg/dL) 127 H (65-110) mg/dL Random Glucose (75-110) mg/dL Calcium (8.4-10.2) mg/dL Free T4 (0.78-2.19) ng/dL Free T3 pg/mL 2.77 (2.77-5.27) pg/mL Laboratory Results - last 24 hr 02/12/19 02/12/19 02/12/19 07:00 10:29 10:29 WBC RBC Hgb Hct MCV MCH MCHC RDW Plt Count Sodium Potassium Chloride Carbon Dioxide Anion Gap BUN Creatinine Est GFR ( Amer) Est GFR (Non-Af Amer) POC Glucose (mg/dL) 127 H Random Glucose Calcium Free T4 1.25 Free T3 pg/mL 2.77 02/12/19 02/12/19 02/12/19 11:09 15:52 21:01 WBC RBC Hgb Hct MCV MCH MCHC RDW Plt Count Sodium Potassium Chloride Carbon Dioxide Anion Gap BUN Creatinine Est GFR ( Amer) Est GFR (Non-Af Amer) POC Glucose (mg/dL) 139 H 187 H 142 H Random Glucose Calcium Free T4 Free T3 pg/mL 02/13/19 02/13/19 05:02 05:02 WBC 2.0 L* RBC 2.96 L Hgb 9.5 L Hct 30.4 L MCV 102.6 H MCH 32.0 H MCHC 31.2 L RDW 18.1 H Plt Count 73 L Sodium 137 Potassium 4.2 Chloride 102 Carbon Dioxide 33 H Anion Gap 6 L BUN 16 Creatinine 0.6 L Est GFR ( Amer) > 60 Est GFR (Non-Af Amer) > 60 POC Glucose (mg/dL) Random Glucose 117 H Calcium 8.7 Free T4 Free T3 pg/mL Fingerstick Blood Sugar Results: 142 Critical Care Progress Note - Nutrition Nutrition: Nutrition Category Date Time Status Dysphagia/Modified Consistency Diet [DIET] Diets 02/05/19 Dinner Active Assessment/Plan (1) Paroxysmal atrial fibrillation with rapid ventricular response Current Visit: Yes Status: Acute Priority: High Comment: Patient was likely a paroxysmal A. fib /A flutter, started on Cardizem drip today Cardiology consult appreciated Trend cardiac enzymes Electrolyte reviewed Will restart PO Cardiazem, PO digoxin today and wean off Cardizem drip (2) Acute on chronic respiratory failure with hypoxemia Current Visit: Yes Status: Acute Priority: High Comment: Multifactorial from COPD, interstitial lung disease, pneumonia with sepsis and chronic right-sided pleural effusion Patient completed course of intravenous antibiotic Interventional radiology consult for diagnostic and therapeutic thoracentesis (3) HCAP (healthcare-associated pneumonia) Current Visit: Yes Status: Acute Priority: High Comment: Completed course of IV Vancomycin, Cefepime and Zithromax (4) Atelectasis, bilateral Current Visit: Yes Status: Acute Priority: High Comment: Scheduled for diagnostic/therapeutic thoracentesis today by IR (likely loculated, also need to R/O empyema) (5) CHF (congestive heart failure) Current Visit: Yes Status: Acute Priority: High (6) Pleural effusion Current Visit: Yes Status: Acute (7) COPD (chronic obstructive pulmonary disease) Current Visit: Yes Status: Chronic Priority: High Comment: Continue nebulizer therapy. Wean off IV Steroids (8) ILD (interstitial lung disease) Current Visit: Yes Status: Chronic Priority: High Comment: Likely related to RA. Needs continued follow up.
--- NOTE | 2019-02-13 08:49 | CP.PCM.PN ---
Subjective - Date & Time of Evaluation Date of Evaluation: 02/13/19 Time of Evaluation: 08:37 - Subjective Subjective: Seen on rounds in ICU. Interim events and EMR entries rerviewed. He has remained afebrile, has been adequately oxygenated. Used BiPAP mask ventilation with periods of standard nasal canula as well. Has been on Cardizem with improved rate control. Repeat CXR this morning shows improved LLL expansion and persistent RLL density. Last CT chest showed consolidated/atelectatic RLL with small effusion. There had been a bronchoscopy done in October for similar appearance with removal of mucous plug. Cultures and cytologies at that time did not reveal any neoplastic, fungal or Mycobacterial disease. Presently he is lying supine in bed on nsal canula. SpO2 is 94%, heart rate in the 90s. He appears comfortable and is conversant. He does become dyspneic with conversation. Respiratory muscle recruitment is a constant off BiPAP. Breath sounds are present bilaterally, equally anteriorly. Posteriorly the breath sounds are much more reduced in the RLL. Dry to medium rales are present in both lower lobes, more so right. No audible wheezing or bronchial breathing. HS are distant, rhythm irregular. + dependant edema w/o cyanosis, + Cushingoid facies. Clinically he appears better, radiographically also, but to a lesser extent. There is persistent atelectasis/consolidation in the RLL and he may require repeat bronchoscopy. I would try postural chest PT if tolerated as an initial procedure. Medical treatment will remain unchanged today except for reduced dose of solumedrol. Objective - Vital Signs/Intake and Output Vital Signs (last 24 hours): Temp Pulse Resp BP Pulse Ox 97.5 F L 76 14 123/64 93 L 02/13/19 07:00 02/13/19 07:00 02/13/19 07:00 02/13/19 07:00 02/13/19 07:00 Intake and Output: 02/12/19 02/13/19 23:59 11:59 Intake Total 143 153 Output Total 500 1125 Balance -357 -972 - Medications Medications: Current Medications Acetaminophen (Tylenol 325mg Tab) 650 mg PO Q6 PRN PRN Reason: Pain, Mild (1-3) Last Admin: 02/11/19 17:53 Dose: 650 mg Acetaminophen/Butalbital/Caffeine (Fioricet) 1 tab PO Q6 [facility] Last Admin: 02/13/19 03:37 Dose: 1 tab Acyclovir (Zovirax 5% Oint) 1 applic EXT QID [facility] Last Admin: 02/12/19 21:08 Dose: 1 applic Atorvastatin Calcium (Lipitor) 20 mg PO HS [facility] Last Admin: 02/12/19 21:05 Dose: 20 mg Baclofen (Lioresal) 10 mg PO DAILY [facility] Last Admin: 02/12/19 12:13 Dose: 10 mg Digoxin (Digoxin) 0.125 mg PO DAILY [facility] Diltiazem HCl (Cardizem) 30 mg PO Q8 [facility] Docusate Sodium (Colace) 100 mg PO Q12 [facility] Last Admin: 02/12/19 20:18 Dose: 100 mg Famotidine (Pepcid) 20 mg PO BID [facility] Last Admin: 02/12/19 16:32 Dose: 20 mg Guaifenesin (Mucinex La) 600 mg PO Q12 [facility] Last Admin: 02/12/19 20:17 Dose: 600 mg Heparin Sodium (Porcine) (Heparin) 5,000 units SC Q12 [facility]; Protocol Last Admin: 02/12/19 20:20 Dose: 5,000 units Hydroxychloroquine Sulfate (Plaquenil) 200 mg PO DAILY [facility]; Protocol Last Admin: 02/08/19 08:46 Dose: 200 mg Diltiazem HCl 125 mg/ Sodium (Chloride) 125 mls @ 5 mls/hr IV .Q24H ONE; Protocol Stop: 02/13/19 09:18 Last Titration: 02/13/19 04:30 Dose: 0 mg/hr, 0 mls/hr Insulin Human Regular (Humulin R) 0 units SC ACHS [facility]; Protocol Last Admin: 02/12/19 21:07 Dose: Not Given Ipratropium [place] (Atrovent) 0.5 mg IH RQID [facility] Last Admin: 02/13/19 08:00 Dose: 0.5 mg Lactulose (Enulose) 20 gm PO DAILY PRN PRN Reason: Constipation Levalbuterol HCl (Xopenex) 1.25 mg INH RQ4 PRN PRN Reason: Shortness of Breath Last Admin: 02/13/19 08:00 Dose: 1.25 mg Methylprednisolone (Solu-Medrol) 30 mg IVP Q12 [facility] Last Admin: 02/12/19 20:25 Dose: 30 mg Montelukast Sodium (Singulair) 10 mg PO HS [facility] Last Admin: 02/13/19 04:54 Dose: 10 mg Polyethylene Glycol (Miralax) 17 gm PO HS [facility] Last Admin: 02/12/19 21:05 Dose: 17 gm Tamsulosin HCl (Flomax) 0.4 mg PO Q12 [facility] Last Admin: 02/12/19 20:19 Dose: 0.4 mg Temazepam (Restoril) 15 mg PO HS PRN PRN Reason: Insomnia Last Admin: 02/12/19 21:52 Dose: 15 mg - Labs Labs: 02/13/19 05:02 02/13/19 05:02 PT 9.7 Seconds (9.8-13.1) L 02/03/19 19:35 INR 0.9 02/03/19 19:35 APTT 31.2 Seconds (25.6-37.1) 02/11/19 16:24 Assessment and Plan (1) Pneumonia Status: Acute (2) Acute on chronic respiratory failure with hypoxemia Status: Acute (3) Hypercapnic respiratory failure Status: Chronic
[2019-02-13] MEDS: Insulin Regular 100 units/ml SC SCH ×4 (08:50→21:33)
[2019-02-13] MEDS: guaiFENesin 600 mg ER Tab PO SCH ×2 (08:51→21:34)
[2019-02-13] MEDS: MethylPREDNISolone 40 mg Vial IVP SCH ×2 (08:52→21:36)
[2019-02-13] MEDS: Acyclovir 5% OINT 15 APPLIC/15 GM EXT SCH ×4 (08:53→21:38)
[2019-02-13] MEDS: Digoxin 125 mcg (0.125 mg) Tab PO SCH (09:59)
--- NOTE | 2019-02-13 13:36 | RAD ---
Date of service: 02/13/2019 PROCEDURE: CHEST RADIOGRAPH, 1 VIEW HISTORY: Pleural effusion COMPARISON: 02/11/2019. FINDINGS: LUNGS: Stable infiltrate right lower lobe. PLEURA: Right pleural effusion inseparable from adjacent consolidative change. CARDIOVASCULAR: Atherosclerotic calcifications identified primarily aortic arch. Normal. OSSEOUS STRUCTURES: No significant abnormalities. VISUALIZED UPPER ABDOMEN: Normal. OTHER FINDINGS: None. IMPRESSION: Stable findings right amelia thorax. No significant interval change compared to the prior examination(s).
--- NOTE | 2019-02-13 15:22 | CP.PCM.PN ---
Subjective - Date & Time of Evaluation Date of Evaluation: 02/13/19 Time of Evaluation: 11:00 - Subjective Subjective: No complaints Objective - Vital Signs/Intake and Output Vital Signs (last 24 hours): Temp Pulse Resp BP Pulse Ox 97.3 F L 110 H 19 98/57 L 100 02/13/19 12:00 02/13/19 15:00 02/13/19 15:00 02/13/19 15:00 02/13/19 15:00 Intake and Output: 02/13/19 02/13/19 06:59 18:59 Intake Total 176 180 Output Total 1200 700 Balance -1024 -520 - Medications Medications: Current Medications Acetaminophen (Tylenol 325mg Tab) 650 mg PO Q6 PRN PRN Reason: Pain, Mild (1-3) Last Admin: 02/11/19 17:53 Dose: 650 mg Acetaminophen/Butalbital/Caffeine (Fioricet) 1 tab PO Q6 [facility] Last Admin: 02/13/19 10:00 Dose: 1 tab Acyclovir (Zovirax 5% Oint) 1 applic EXT QID [facility] Last Admin: 02/13/19 12:11 Dose: 1 applic Atorvastatin Calcium (Lipitor) 20 mg PO HS [facility] Last Admin: 02/12/19 21:05 Dose: 20 mg Baclofen (Lioresal) 10 mg PO DAILY [facility] Last Admin: 02/13/19 08:50 Dose: 10 mg Digoxin (Digoxin) 0.125 mg PO DAILY [facility] Last Admin: 02/13/19 09:59 Dose: 0.125 mg Diltiazem HCl (Cardizem) 30 mg PO Q8 [facility] Last Admin: 02/13/19 10:01 Dose: 30 mg Docusate Sodium (Colace) 100 mg PO Q12 [facility] Last Admin: 02/13/19 08:48 Dose: 100 mg Famotidine (Pepcid) 20 mg PO BID [facility] Last Admin: 02/13/19 08:51 Dose: 20 mg Guaifenesin (Mucinex La) 600 mg PO Q12 [facility] Last Admin: 02/13/19 08:51 Dose: 600 mg Guaifenesin/Dextromethorphan (Robitussin Dm) 10 ml PO Q6 PRN PRN Reason: Cough Heparin Sodium (Porcine) (Heparin) 5,000 units SC Q12 [facility]; Protocol Last Admin: 02/13/19 08:49 Dose: 5,000 units Hydroxychloroquine Sulfate (Plaquenil) 200 mg PO DAILY [facility]; Protocol Last Admin: 02/08/19 08:46 Dose: 200 mg Insulin Human Regular (Humulin R) 0 units SC ACHS [facility]; Protocol Last Admin: 02/13/19 12:09 Dose: 2 unit Ipratropium [place] (Atrovent) 0.5 mg IH RQID [facility] Last Admin: 02/13/19 15:16 Dose: 0.5 mg Lactulose (Enulose) 20 gm PO DAILY PRN PRN Reason: Constipation Levalbuterol HCl (Xopenex) 1.25 mg INH RQ4 PRN PRN Reason: Shortness of Breath Last Admin: 02/13/19 08:00 Dose: 1.25 mg Methylprednisolone (Solu-Medrol) 20 mg IVP Q12 [facility] Montelukast Sodium (Singulair) 10 mg PO HS [facility] Last Admin: 02/13/19 04:54 Dose: 10 mg Polyethylene Glycol (Miralax) 17 gm PO HS [facility] Last Admin: 02/12/19 21:05 Dose: 17 gm Tamsulosin HCl (Flomax) 0.4 mg PO Q12 [facility] Last Admin: 02/13/19 08:49 Dose: 0.4 mg Temazepam (Restoril) 15 mg PO HS PRN PRN Reason: Insomnia Last Admin: 02/12/19 21:52 Dose: 15 mg - Labs Labs: 02/13/19 05:02 02/13/19 05:02 PT 9.7 Seconds (9.8-13.1) L 02/03/19 19:35 INR 0.9 02/03/19 19:35 APTT 31.2 Seconds (25.6-37.1) 02/11/19 16:24 - Head Exam Head Exam: ATRAUMATIC - Eye Exam Eye Exam: Normal appearance - ENT Exam ENT Exam: Mucous Membranes Dry - Respiratory Exam Respiratory Exam: Decreased Breath Sounds - Cardiovascular Exam Cardiovascular Exam: +S1, +S2 - GI/Abdominal Exam GI & Abdominal Exam: Normal Bowel Sounds Assessment and Plan (1) Pancytopenia Assessment & Plan: exacerbated by acute illness, polypharmacy prior improvement in cytopenias when holding hydroxychloroquine; on hold normal iron/b12/folate stores transfusion support PRN no significant neutropenia Status: Acute (2) Pancreatic mass Assessment & Plan: prior elevation in chromogranin A level; repeated ?neuroendocrine tumor not a good surgical candidate, will cont. to monitor Status: Acute
[2019-02-13] MEDS: guaiFENesin DM 200 mg-20 mg/10 ml UD PO PRN (15:45)
--- NOTE | 2019-02-13 20:06 | PN ---
DATE: 02/13/2019 SUBJECTIVE: The patient is currently in multifocal atrial tachycardia. He denies any chest pain. PHYSICAL EXAMINATION: VITAL SIGNS: Blood pressure 90/60; heart rate 123, the most recent heart rate; temperature 97.3; and respirations 21. HEENT: Pale conjunctivae. CHEST: Bilateral rhonchi. HEART: S1 and S2, regular. ABDOMEN: Soft. EXTREMITIES: No edema. LABORATORY DATA: Today's hemoglobin and hematocrit 9.5 and 30.4, white count 2, and platelet count 73,000. Today's SMA-7: Sodium 137, potassium 4.3, chloride 102, CO2 of 33, glucose 117, BUN 16, and creatinine 0.6. LORI screen is negative. Today's chest x-ray report stable finding, right hemothorax. No significant interval change compared to prior examination. I did review Dr. Amaya's followup and his assessment is pneumonia, acute on chronic respiratory failure, and hypercapnic respiratory failure. We will start chest physical therapy if tolerated as an initial approach. ASSESSMENT AND PLAN: 1. Exacerbation of chronic obstructive lung disease. 2. Multifocal atrial tachycardia. 3. Paroxysmal atrial fibrillation and atrial flutter. 4. Pancytopenia. 5. Rheumatoid arthritis. 6. Coronary artery disease with history of coronary artery bypass surgery. RECOMMENDATIONS: Continue p.o. every 8 hours, digoxin 0.125 mg daily, subcutaneous heparin 5000 units every 12 hours, Lipitor 20 mg at bedtime, Plaquenil 200 mg daily, Solu-Medrol every 12 hours, local Zovirax ointment. The patient may be considered for bronchoscopy by Dr. Amaya. The patient was also followed up by Dr. Diaz, the interlocking and signal mechanic, yesterday. Geo Whitmore MD
--- NOTE | 2019-02-13 20:48 | PN ---
DATE: 02/13/2019 SUBJECTIVE: The patient is seen today, 02/13/2019. He is still in cardiopulmonary distress with tachycardia at 120 to 130 as well as short of breath with mild exertion. PHYSICAL EXAMINATION: VITAL SIGNS: Blood pressure is 98/57, temperature 97.3, respiratory rate 19, pulse 110. HEENT: Pupils are equal and reactive to light. Normal-appearing mucosa of the conjunctivae, oropharynx and nasal membrane mucosa. NECK: Supple. No JVD. No carotid bruit. No lymph node. No thyromegaly. CHEST AND LUNGS: Bilateral basilar rales. CARDIOVASCULAR SYSTEM: PMI not localized. S1 and S2, tachycardic. ABDOMEN: Normoactive bowel sounds. No tenderness. No organomegaly. No masses. The vesicular rashes on the left lower quadrant are crusted. EXTREMITIES: No cyanosis. No clubbing. No edema. CENTRAL NERVOUS SYSTEM: Alert, awake and oriented x2. The patient moves all extremities equally. ASSESSMENT: Pneumonia; exacerbation of chronic obstructive pulmonary disease; hypercapnic respiratory failure; atrial fibrillation/atrial flutter with rapid ventricular rate; coronary artery disease, status post coronary artery bypass graft; hypertension. PLAN: Continue current bronchodilators and steroids. Follow recommendations of Cardiology and Pulmonology. Continue oxygen supplement by nasal cannula/BiPAP as needed. Gregor MD [place]
[2019-02-13] MEDS ORDERED: methylPREDNISolone 20 MG in Sodium Chloride 0.9% 50 ML IV SCH (21:00)
[2019-02-13] MEDS: POLYETHYLENE GLYCOL 3350 17 GM/Dose PACKET PO SCH (21:34)
[2019-02-14] MEDS: Apap-Butalbital-Caffeine 325-50-40mg Tab PO SCH ×4 (04:16→21:27)
[2019-02-14 06:03] LABS: HEMOGLOBIN 9.9 g/dL (12.0-18.0); MEAN CELL VOLUME 102.4 fl (80.0-94.0); MEAN CORPUSCULAR HEMOGLOBIN 32.6 pg (27.0-31.0); MEAN CORPUSCULAR HGB CONC 31.8 g/dL (33.0-37.0); RBC 3.05 Mil/uL (4.40-5.90); RED CELL DISTRIBUTION WIDTH 18.2 % (11.5-14.5); WHITE BLOOD COUNT 2.5 K/uL (4.8-10.8)
[2019-02-14 06:08] LABS: ALB/GLOB RATIO 1.3 (1.0-2.1); ALBUMIN 2.8 g/dL (3.5-5.0); ALT/SGPT 48 U/L (21-72); AST/SGOT 36 U/L (17-59); BLOOD UREA NITROGEN 17 mg/dl (9-20); CALCIUM 8.8 mg/dL (8.4-10.2); GFR NON-AFRICAN AMERICAN > 60
[2019-02-14] MEDS: Insulin Regular 100 units/ml SC SCH ×4 (07:03→22:11)
[2019-02-14] MEDS: Ipratropium 0.02% Inhal Soln (0.5 mg/2.5 ml) UD IH SCH ×4 (07:13→19:05)
[2019-02-14] MEDS: Digoxin 125 mcg (0.125 mg) Tab PO SCH (08:41)
[2019-02-14] MEDS: guaiFENesin 600 mg ER Tab PO SCH ×2 (08:41→21:29)
[2019-02-14] MEDS: Acyclovir 5% OINT 15 APPLIC/15 GM EXT SCH ×4 (08:43→21:33)
[2019-02-14] MEDS: MethylPREDNISolone 40 mg Vial IVP SCH ×2 (08:43→21:31)
--- NOTE | 2019-02-14 09:06 | CP.PCM.PN ---
Subjective - Date & Time of Evaluation Date of Evaluation: 02/14/19 Time of Evaluation: 09:06 - Subjective Subjective: Seen in the ICU this morning. Presently on standard nasal canula at 4LPM, SpO2 96%. Has recently finished eating breakfast, appears comfortable. Relates having had 'a lot of phlegm' yesterday. Had been on nasal canula for a large portion of the day yesterday and BiPAP at night. His vital signs remain stable and he continues to be afebrile. WBCs are 2.5 with platelets of 73 today. Chemistries are okay. On exam there is no dullness over the anterior chest wall. Breath sounds are diminished bilaterally, but absent in the right base. Few medium rales in the left base, scattered sonorous rhonchi as well. No bronchial breath sounds or wheezing. Will plan for bronchoscopy tomorrow AM (previous mucous plug required extraction in October). Will repeat PCXR tomorrow morning and cancel FFB if there has been clearing. Will hold Heparin in anticipation of FFB. CC time 20min Objective - Vital Signs/Intake and Output Vital Signs (last 24 hours): Temp Pulse Resp BP Pulse Ox 97.7 F 111 H 26 H 119/74 99 02/14/19 08:00 02/14/19 08:40 02/14/19 08:40 02/14/19 08:40 02/14/19 08:40 Intake and Output: 02/13/19 02/14/19 23:59 11:59 Intake Total 550 0 Output Total 875 280 Balance -325 -280 - Medications Medications: Current Medications Acetaminophen (Tylenol 325mg Tab) 650 mg PO Q6 PRN PRN Reason: Pain, Mild (1-3) Last Admin: 02/11/19 17:53 Dose: 650 mg Acetaminophen/Butalbital/Caffeine (Fioricet) 1 tab PO Q6 [facility] Last Admin: 02/14/19 04:16 Dose: Not Given Acyclovir (Zovirax 5% Oint) 1 applic EXT QID [facility] Last Admin: 02/14/19 08:43 Dose: 1 applic Atorvastatin Calcium (Lipitor) 20 mg PO HS [facility] Last Admin: 02/13/19 21:34 Dose: 20 mg Baclofen (Lioresal) 10 mg PO DAILY [facility] Last Admin: 02/14/19 08:41 Dose: 10 mg Digoxin (Digoxin) 0.125 mg PO DAILY [facility] Last Admin: 02/14/19 08:41 Dose: 0.125 mg Diltiazem HCl (Cardizem) 30 mg PO Q8 [facility] Last Admin: 02/14/19 08:40 Dose: 30 mg Docusate Sodium (Colace) 100 mg PO Q12 [facility] Last Admin: 02/14/19 08:42 Dose: 100 mg Famotidine (Pepcid) 20 mg PO BID [facility] Last Admin: 02/14/19 08:40 Dose: 20 mg Guaifenesin (Mucinex La) 600 mg PO Q12 [facility] Last Admin: 02/14/19 08:41 Dose: 600 mg Guaifenesin/Dextromethorphan (Robitussin Dm) 10 ml PO Q6 PRN PRN Reason: Cough Last Admin: 02/13/19 15:45 Dose: 10 ml Heparin Sodium (Porcine) (Heparin) 5,000 units SC Q12 [facility]; Protocol Last Admin: 02/13/19 21:32 Dose: 5,000 units Hydroxychloroquine Sulfate (Plaquenil) 200 mg PO DAILY [facility]; Protocol Last Admin: 02/08/19 08:46 Dose: 200 mg Insulin Human Regular (Humulin R) 0 units SC [facility]; Protocol Last Admin: 02/14/19 07:03 Dose: Not Given Ipratropium [place] (Atrovent) 0.5 mg IH RQID [facility] Last Admin: 02/14/19 07:13 Dose: 0.5 mg Lactulose (Enulose) 20 gm PO DAILY PRN PRN Reason: Constipation Levalbuterol HCl (Xopenex) 1.25 mg INH RQ4 PRN PRN Reason: Shortness of Breath Last Admin: 02/13/19 08:00 Dose: 1.25 mg Methylprednisolone (Solu-Medrol) 20 mg IVP Q12 [facility] Last Admin: 02/14/19 08:43 Dose: 20 mg Montelukast Sodium (Singulair) 10 mg PO HS [facility] Last Admin: 02/13/19 21:35 Dose: 10 mg Polyethylene Glycol (Miralax) 17 gm PO HS [facility] Last Admin: 02/13/19 21:34 Dose: 17 gm Tamsulosin HCl (Flomax) 0.4 mg PO Q12 [facility] Last Admin: 02/14/19 08:40 Dose: 0.4 mg Temazepam (Restoril) 15 mg PO HS PRN PRN Reason: Insomnia Last Admin: 02/13/19 21:52 Dose: 15 mg - Labs Labs: 02/14/19 05:40 02/14/19 05:40 PT 9.7 Seconds (9.8-13.1) L 02/03/19 19:35 INR 0.9 02/03/19 19:35 APTT 31.2 Seconds (25.6-37.1) 02/11/19 16:24 Assessment and Plan (1) Pneumonia Status: Acute (2) Acute on chronic respiratory failure with hypoxemia Status: Chronic (3) Hypercapnic respiratory failure Status: Chronic (4) Mucus plugging of bronchi Assessment & Plan: Suspected intermediate bronchus-right. Status: Suspected
[2019-02-14] MEDS: Artificial Tears Opht Soln OU PRN ×3 (11:19→21:24)
[2019-02-14] MEDS ORDERED: Digoxin 500 mcg/2ml (0.5 mg/2ml) Inj IVP ONE (14:51)
--- NOTE | 2019-02-14 14:55 | CP.CCUPN ---
CCU Subjective - Physician Review Subjective (Free Text): Again, appears well when initially off BiPAP and having breakfast, looks comfortable and not distressed, resting HR at 120 with materials director showing sinus beats but P morphology not consistently uniform, possible MAT? SPO2 99% on 4 LPM NC. Denies any recurrent chest discomfort. Afebrile now, no recurrent fever spikes, SBP in 100s, HR 120s, RR 24-28, SPO2 99% on NC. Off Cardizem drip. ROS: No other pertinent negs or positives on 10+ system review PMSFH: All other Nursing and physician documentation reviewed to date; no new pertinent info noted relevant to current medical problems. EXAM- HEENT: no icterus, no gaze preference NECK: No JVD visible, supple, carotids equal upstroke bilat/no bruit CHEST: decreased BS at the bases, especially R base; no wheezes audible bilaterally. Large well healed scar across left anterior chest and midline. Another T spine scar over the mid-upper back. HEART: regular, distant, S1S2, no rubs or murmurs noted ABD: soft and obese, nontender, no guarding, no organomegaly, BS hypoactive. EXT: no leg edema, no calf tenderness or palpable cords, distal pulses intact and symmetrical. Bilateral arthritic hand deformities. NEURO: no gross focal deficits. SKIN: no rashes, warm and dry LABS: WBC= 2.5 HGB= 9.9 PLTs= 73K Na= 137 K= 4.8 CL= 103 HCO3= 34 BUN/Cr= 17/0.6 BS= 106 IMPRESSION / MAJOR PROBLEMS NOW: 1. Acute on chronic Hypercarbic Resp Failure 2 RLL effusion / Pneumonia; Atelectasis and Mucous plugging 2. Steroid-Dependent Rheumatoid Arthritis 3. Chronic Thrombocytopenia 4. h/o Thoracic Spinal fusion surgery PLAN: 1. VR control attempted with Cardizem and Digoxin. SBP borderline, remains tachycardic. ??effectiveness of CC-Florecita therapy, consider cardio-selective beta florecita, discuss with Pulm and cardio. Consider increasing Digoxin dosing. 2. Acetazolamide. 3. Holding Plaquenil for now; and follow WBCs, Platelets. Steroids being weaned down. 4. Off Antibiotics. Possible FOB/BAL in AM.
[2019-02-14 15:51] VITALS: PULSE 118
[2019-02-14] MEDS: guaiFENesin DM 200 mg-20 mg/10 ml UD PO PRN (16:12)
--- NOTE | 2019-02-14 18:24 | PN ---
DATE: 02/14/2019 SUBJECTIVE: The patient is seen today on 02/14/2019. He is sitting in a chair, still tachycardic. PHYSICAL EXAMINATION: VITAL SIGNS: Blood pressure is 105/61, temperature 98.4, respiratory rate 20, and pulse 129. HEENT: The patient has subconjunctival hemorrhage of the right eye. NECK: Supple. No JVD. No carotid bruits. No lymph node. No thyromegaly. CHEST AND LUNGS: Bilateral symmetrical expansion. Good air exchange. No rales, no rhonchi. The patient has decreased air entry in the right lower lung base with some scattered rhonchi. CARDIOVASCULAR: PMI not localized. S1 and S2. No additional sounds. ABDOMEN: Normoactive bowel sounds. No tenderness. No organomegaly. No masses. EXTREMITIES: No cyanosis. No clubbing. No edema. Positive deformity of rheumatoid arthritis. CENTRAL NERVOUS SYSTEM: Alert, awake and oriented x2 and moved all extremities equally. ASSESSMENT: Hypercapnic respiratory failure, exacerbation of chronic obstructive pulmonary disease and pneumonia, history of hypertension, coronary artery disease status post coronary artery bypass graft, advanced rheumatoid arthritis. PLAN: Continue current medications and bronchodilators and the patient is for bronchoscopy by endocrinologist tomorrow. Michaela Wood MD
[2019-02-14] MEDS: POLYETHYLENE GLYCOL 3350 17 GM/Dose PACKET PO SCH (21:29)
--- NOTE | 2019-02-14 22:39 | PN ---
DATE: 02/14/2019 SUBJECTIVE: The patient is still short of breath. He is currently in multifocal atrial tachycardia. PHYSICAL EXAMINATION: VITAL SIGNS: Blood pressure 94/47, heart rate 133, temperature 98.4, respirations 26. HEENT: Normocephalic. CHEST: Bilateral rhonchi. HEART: S1, S2 regular. EXTREMITIES: No edema. LABORATORY DATA: Today's hemoglobin and hematocrit are 9.9 and 31.2. White count 2.5, platelet count 73,000. Today's SMA-7: Sodium 137, potassium 4.8, chloride 103, CO2 of 34, glucose 119, BUN 17, creatinine 0.6. ASSESSMENT: 1. Paroxysmal atrial fibrillation and atrial flutter. 2. The patient is currently in multifocal atrial tachycardia. 3. Exacerbation of chronic obstructive lung disease. 4. Pneumonia. 5. Coronary artery disease with history of coronary artery bypass surgery in the past. RECOMMENDATIONS: Case was discussed with Dr. Wood. Discontinue current digoxin. Discontinue Cardizem. Start verapamil at 40 mg p.o. every 8 hours. Subcutaneous Lovenox is currently on hold. Continue Plaquenil 200 mg daily, Singulair 10 mg daily, Solu-Medrol 20 mg intravenously every 12 hours, and the patient has been consented for bronchoscopy tomorrow. Geo Whitmore MD
--- NOTE | 2019-02-15 00:35 | CARD ---
APPROVED REPORT Date of service: 02/11/2019 EKG Measurement Heart [id number] [id number] <Conclusion> Sinus tachycardia with occasional premature ventricular complexes and premature atrial complexes Right bundle branch block Inferior infarct, age undetermined Abnormal ECG
[2019-02-15] MEDS: Apap-Butalbital-Caffeine 325-50-40mg Tab PO SCH ×3 (04:00→17:48)
[2019-02-15 05:29] LABS: HEMOGLOBIN 10.3 g/dL (12.0-18.0); MEAN CELL VOLUME 102.3 fl (80.0-94.0); MEAN CORPUSCULAR HEMOGLOBIN 32.6 pg (27.0-31.0); MEAN CORPUSCULAR HGB CONC 31.9 g/dL (33.0-37.0); RBC 3.16 Mil/uL (4.40-5.90); RED CELL DISTRIBUTION WIDTH 18.3 % (11.5-14.5)
[2019-02-15 05:46] LABS: ALB/GLOB RATIO 1.2 (1.0-2.1); ALBUMIN 2.7 g/dL (3.5-5.0); ALT/SGPT 57 U/L (21-72); AST/SGOT 47 U/L (17-59); BLOOD UREA NITROGEN 25 mg/dl (9-20); GFR NON-AFRICAN AMERICAN > 60
[2019-02-15] MEDS ORDERED: Sodium Chloride 0.9% 0 ML IV ONE (07:14)
[2019-02-15] MEDS ORDERED: Lidocaine 1% Inj (20ml) ONE (07:14)
[2019-02-15] MEDS ORDERED: EPINEPHrine 1 mg/ml (1:1000) Inj ONE (07:14)
[2019-02-15] MEDS ORDERED: Lidocaine 2% GEL ONE (07:26)
[2019-02-15] MEDS: Insulin Regular 100 units/ml SC SCH ×4 (07:27→21:25)
[2019-02-15] MEDS ORDERED: Etomidate 20 mg/10ml Inj IV ONE (07:50)
[2019-02-15] MEDS ORDERED: Succinylcholine 200 mg/10 ml Inj IV ONE (07:51)
[2019-02-15] MEDS ORDERED: Propofol 10 mg/ml Inj (20 ML) ONE (07:52)
[2019-02-15] MEDS: Ipratropium 0.02% Inhal Soln (0.5 mg/2.5 ml) UD IH SCH ×5 (07:54→19:04)
[2019-02-15] MEDS ORDERED: Lidocaine 2% GEL TOP ONE (08:08)
[2019-02-15] MEDS ORDERED: Midazolam 2 MG/2 ML VIAL ONE (08:08)
[2019-02-15] MEDS ORDERED: Lidocaine 1% Inj (20ml) IJ ONE (08:08)
[2019-02-15] MEDS ORDERED: Flumazenil 0.1 mg/ml Inj (5ml) IVP ONE (08:26)
[2019-02-15] MEDS: MethylPREDNISolone 40 mg Vial IVP SCH ×2 (09:27→21:22)
[2019-02-15] MEDS: Acyclovir 5% OINT 15 APPLIC/15 GM EXT SCH ×4 (09:30→21:23)
--- NOTE | 2019-02-15 10:28 | RAD ---
Date of service: 02/15/2019 HISTORY: atelectasis RLL COMPARISON: 02/15/2019 at 4:17 a.m. TECHNIQUE: 1 view obtained. FINDINGS: LUNGS: Opacity at left base. Infiltrate versus atelectasis. PLEURA: Moderate right and small left pleural effusion. No pneumothorax. CARDIOVASCULAR: There is atherosclerotic calcification of the thoracic aorta. Normal cardiac size. No congestive change. Thoracic spinal fixation hardware noted. OSSEOUS STRUCTURES: No significant abnormalities. VISUALIZED UPPER ABDOMEN: Normal. OTHER FINDINGS: None. IMPRESSION: Bilateral pleural effusion, right greater than left. Infiltrate versus atelectasis at left base.
--- NOTE | 2019-02-15 10:29 | RAD ---
Date of service: 02/15/2019 HISTORY: pneumonia COMPARISON: 02/13/2019 TECHNIQUE: 1 view obtained. FINDINGS: LUNGS: Linear scar/atelectasis at left base. Evaluation limited by oblique positioning of patient. PLEURA: Small bilateral pleural effusion, right greater than left. No pneumothorax. CARDIOVASCULAR: There is atherosclerotic calcification of the thoracic aorta. Normal cardiac size. No pulmonary vascular congestion. OSSEOUS STRUCTURES: Thoracic spinal fixation hardware noted. VISUALIZED UPPER ABDOMEN: Normal. OTHER FINDINGS: None. IMPRESSION: Small bilateral pleural effusion, right greater than left. Left basilar subsegmental atelectasis.
[2019-02-15] MEDS: guaiFENesin 600 mg ER Tab PO SCH ×2 (10:55→21:22)
--- NOTE | 2019-02-15 11:22 | CP.CCUPN ---
CCU Subjective - Physician Review Subjective (Free Text): Came off BiPAP this morning at 6AM onto 4 LPM NC; no distress, had uneventful FOB with clearance of mucous plugs, no further tachycardia, off PO Cardizem and Digoxin. HR in the 80s. BP improved with systolic 120s. SPo2 99% on NC. Afebrile now, no recurrent fever spikes. ROS: No other pertinent negs or positives on 10+ system review PMSFH: All other Nursing and physician documentation reviewed to date; no new pertinent info noted relevant to current medical problems. EXAM- HEENT: no icterus, no gaze preference NECK: No JVD visible, supple, carotids equal upstroke bilat/no bruit CHEST: decreased BS at the bases, especially R base; no wheezes audible bilaterally. Large well healed scar across left anterior chest and midline. Another T spine scar over the mid-upper back. HEART: regular, distant, S1S2, no rubs or murmurs noted ABD: soft and obese, nontender, no guarding, no organomegaly, BS hypoactive. EXT: no leg edema, no calf tenderness or palpable cords, distal pulses intact and symmetrical. Bilateral arthritic hand deformities. NEURO: no gross focal deficits. SKIN: no rashes, warm and dry LABS: WBC= 3.0 HGB= 10.3 PLTs= 71K Na= 136 K= 4.5 CL= 101 HCO3= 34 BUN/Cr= 25/0.5 BS= 91 CXR post FOB: similar findings compared to todays early AM CXR (my interp). IMPRESSION / MAJOR PROBLEMS NOW: 1. Acute on chronic Hypercarbic Resp Failure 2 RLL effusion / Pneumonia; Atelectasis and Mucous plugging 2. Steroid-Dependent Rheumatoid Arthritis 3. Chronic Thrombocytopenia 4. h/o Thoracic Spinal fusion surgery PLAN: 1. Verapamil as per Cardio for VR control. 2. Platelets unchanged as he has been off Plaquenil. 3. Serum Bicarb level improved on acetazolamide, steroids on taper. 4. Mobilize OOB; Tele bed if acceptable to all consultants / PMD.
--- NOTE | 2019-02-15 20:18 | CP.PCM.PN ---
Subjective - Date & Time of Evaluation Date of Evaluation: 02/14/19 Time of Evaluation: 13:00 - Subjective Subjective: Seen eating, appears comfortable. Objective - Vital Signs/Intake and Output Vital Signs (last 24 hours): Temp Pulse Resp BP Pulse Ox 97.9 F 119 H 22 111/57 L 92 L 02/15/19 15:55 02/15/19 18:00 02/15/19 18:00 02/15/19 18:00 02/15/19 18:00 Intake and Output: 02/15/19 02/16/19 18:59 06:59 Intake Total 660 Output Total 250 Balance 410 - Medications Medications: Current Medications Acetaminophen (Tylenol 325mg Tab) 650 mg PO Q6 PRN PRN Reason: Pain, Mild (1-3) Last Admin: 02/14/19 18:47 Dose: 650 mg Acetaminophen/Butalbital/Caffeine (Fioricet) 1 tab PO Q6 [facility] Last Admin: 02/15/19 17:48 Dose: 1 tab Acyclovir (Zovirax 5% Oint) 1 applic EXT QID [facility] Last Admin: 02/15/19 17:49 Dose: 1 applic Artificial Tears (Artificial Tears) 2 drop OU Q4 PRN PRN Reason: Dry eyes Last Admin: 02/14/19 21:24 Dose: 2 drop Atorvastatin Calcium (Lipitor) 20 mg PO HS [facility] Last Admin: 02/14/19 21:28 Dose: 20 mg Baclofen (Lioresal) 10 mg PO DAILY [facility] Last Admin: 02/15/19 10:22 Dose: 10 mg Docusate Sodium (Colace) 100 mg PO Q12 [facility] Last Admin: 02/15/19 10:22 Dose: 100 mg Famotidine (Pepcid) 20 mg PO BID [facility] Last Admin: 02/15/19 17:50 Dose: 20 mg Guaifenesin (Mucinex La) 600 mg PO Q12 [facility] Last Admin: 02/15/19 10:55 Dose: 600 mg Guaifenesin/Dextromethorphan (Robitussin Dm) 10 ml PO Q6 PRN PRN Reason: Cough Last Admin: 02/14/19 16:12 Dose: 10 ml Heparin Sodium (Porcine) (Heparin) 5,000 units SC Q12 [facility]; Protocol Last Admin: 02/15/19 09:25 Dose: Not Given Hydroxychloroquine Sulfate (Plaquenil) 200 mg PO DAILY [facility]; Protocol Last Admin: 02/08/19 08:46 Dose: 200 mg Insulin Human Regular (Humulin R) 0 units SC ACHS [facility]; Protocol Last Admin: 02/15/19 17:47 Dose: Not Given Ipratropium [place] (Atrovent) 0.5 mg IH RQID [facility] Last Admin: 02/15/19 19:04 Dose: 0.5 mg Lactulose (Enulose) 20 gm PO DAILY PRN PRN Reason: Constipation Levalbuterol HCl (Xopenex) 1.25 mg INH RQ4 PRN PRN Reason: Shortness of Breath Last Admin: 02/13/19 08:00 Dose: 1.25 mg Methylprednisolone (Solu-Medrol) 20 mg IVP Q12 [facility] Last Admin: 02/15/19 09:27 Dose: 20 mg Montelukast Sodium (Singulair) 10 mg PO HS [facility] Last Admin: 02/14/19 21:30 Dose: 10 mg Polyethylene Glycol (Miralax) 17 gm PO HS [facility] Last Admin: 02/14/19 21:29 Dose: 17 gm Tamsulosin HCl (Flomax) 0.4 mg PO Q12 [facility] Last Admin: 02/15/19 10:22 Dose: 0.4 mg Temazepam (Restoril) 15 mg PO HS PRN PRN Reason: Insomnia Last Admin: 02/14/19 21:37 Dose: 15 mg Verapamil HCl (Calan Tab) 40 mg PO TID [facility] Last Admin: 02/15/19 17:48 Dose: 40 mg - Labs Labs: 02/15/19 04:18 02/15/19 04:18 PT 9.7 Seconds (9.8-13.1) L 02/03/19 19:35 INR 0.9 02/03/19 19:35 APTT 31.2 Seconds (25.6-37.1) 02/11/19 16:24 - Head Exam Head Exam: ATRAUMATIC - Eye Exam Eye Exam: Normal appearance - ENT Exam ENT Exam: Mucous Membranes Dry - Respiratory Exam Respiratory Exam: Decreased Breath Sounds - Cardiovascular Exam Cardiovascular Exam: +S1, +S2 - GI/Abdominal Exam GI & Abdominal Exam: Normal Bowel Sounds Assessment and Plan (1) Pancytopenia Assessment & Plan: exacerbated by acute illness, polypharmacy prior improvement in cytopenias when holding hydroxychloroquine; on hold normal iron/b12/folate stores transfusion support PRN no significant neutropenia Status: Acute (2) Pancreatic mass Assessment & Plan: prior elevation in chromogranin A level; repeated ?neuroendocrine tumor not a good surgical candidate, will cont. to monitor Status: Acute
--- NOTE | 2019-02-15 20:20 | CP.PCM.PN ---
Subjective - Date & Time of Evaluation Date of Evaluation: 02/15/19 Time of Evaluation: 12:00 - Subjective Subjective: Tolerated bronchoscopy well, no complaints. Objective - Vital Signs/Intake and Output Vital Signs (last 24 hours): Temp Pulse Resp BP Pulse Ox 97.9 F 119 H 22 111/57 L 92 L 02/15/19 15:55 02/15/19 18:00 02/15/19 18:00 02/15/19 18:00 02/15/19 18:00 Intake and Output: 02/15/19 02/16/19 18:59 06:59 Intake Total 660 Output Total 250 Balance 410 - Medications Medications: Current Medications Acetaminophen (Tylenol 325mg Tab) 650 mg PO Q6 PRN PRN Reason: Pain, Mild (1-3) Last Admin: 02/14/19 18:47 Dose: 650 mg Acetaminophen/Butalbital/Caffeine (Fioricet) 1 tab PO Q6 [facility] Last Admin: 02/15/19 17:48 Dose: 1 tab Acyclovir (Zovirax 5% Oint) 1 applic EXT QID [facility] Last Admin: 02/15/19 17:49 Dose: 1 applic Artificial Tears (Artificial Tears) 2 drop OU Q4 PRN PRN Reason: Dry eyes Last Admin: 02/14/19 21:24 Dose: 2 drop Atorvastatin Calcium (Lipitor) 20 mg PO HS [facility] Last Admin: 02/14/19 21:28 Dose: 20 mg Baclofen (Lioresal) 10 mg PO DAILY [facility] Last Admin: 02/15/19 10:22 Dose: 10 mg Docusate Sodium (Colace) 100 mg PO Q12 [facility] Last Admin: 02/15/19 10:22 Dose: 100 mg Famotidine (Pepcid) 20 mg PO BID [facility] Last Admin: 02/15/19 17:50 Dose: 20 mg Guaifenesin (Mucinex La) 600 mg PO Q12 [facility] Last Admin: 02/15/19 10:55 Dose: 600 mg Guaifenesin/Dextromethorphan (Robitussin Dm) 10 ml PO Q6 PRN PRN Reason: Cough Last Admin: 02/14/19 16:12 Dose: 10 ml Heparin Sodium (Porcine) (Heparin) 5,000 units SC Q12 [facility]; Protocol Last Admin: 02/15/19 09:25 Dose: Not Given Hydroxychloroquine Sulfate (Plaquenil) 200 mg PO DAILY [facility]; Protocol Last Admin: 02/08/19 08:46 Dose: 200 mg Insulin Human Regular (Humulin R) 0 units SC ACHS [facility]; Protocol Last Admin: 02/15/19 17:47 Dose: Not Given Ipratropium [place] (Atrovent) 0.5 mg IH RQID [facility] Last Admin: 02/15/19 19:04 Dose: 0.5 mg Lactulose (Enulose) 20 gm PO DAILY PRN PRN Reason: Constipation Levalbuterol HCl (Xopenex) 1.25 mg INH RQ4 PRN PRN Reason: Shortness of Breath Last Admin: 02/13/19 08:00 Dose: 1.25 mg Methylprednisolone (Solu-Medrol) 20 mg IVP Q12 [facility] Last Admin: 02/15/19 09:27 Dose: 20 mg Montelukast Sodium (Singulair) 10 mg PO HS [facility] Last Admin: 02/14/19 21:30 Dose: 10 mg Polyethylene Glycol (Miralax) 17 gm PO HS [facility] Last Admin: 02/14/19 21:29 Dose: 17 gm Tamsulosin HCl (Flomax) 0.4 mg PO Q12 [facility] Last Admin: 02/15/19 10:22 Dose: 0.4 mg Temazepam (Restoril) 15 mg PO HS PRN PRN Reason: Insomnia Last Admin: 02/14/19 21:37 Dose: 15 mg Verapamil HCl (Calan Tab) 40 mg PO TID [facility] Last Admin: 02/15/19 17:48 Dose: 40 mg - Labs Labs: 02/15/19 04:18 02/15/19 04:18 PT 9.7 Seconds (9.8-13.1) L 02/03/19 19:35 INR 0.9 02/03/19 19:35 APTT 31.2 Seconds (25.6-37.1) 02/11/19 16:24 - Head Exam Head Exam: ATRAUMATIC - Eye Exam Eye Exam: Normal appearance - ENT Exam ENT Exam: Mucous Membranes Dry - Respiratory Exam Respiratory Exam: Decreased Breath Sounds - Cardiovascular Exam Cardiovascular Exam: +S1, +S2 - GI/Abdominal Exam GI & Abdominal Exam: Normal Bowel Sounds Assessment and Plan (1) Pancytopenia Assessment & Plan: exacerbated by acute illness, polypharmacy prior improvement in cytopenias when holding hydroxychloroquine; on hold normal iron/b12/folate stores transfusion support PRN no significant neutropenia Status: Acute (2) Pancreatic mass Assessment & Plan: prior elevation in chromogranin A level; repeated ?neuroendocrine tumor not a good surgical candidate, will cont. to monitor Status: Acute
[2019-02-15] MEDS: guaiFENesin DM 200 mg-20 mg/10 ml UD PO PRN (20:50)
[2019-02-15] MEDS: POLYETHYLENE GLYCOL 3350 17 GM/Dose PACKET PO SCH (21:21)
[2019-02-15] MEDS: Artificial Tears Opht Soln OU PRN (21:24)
--- NOTE | 2019-02-15 23:03 | PN ---
DATE: 02/15/2019 DAILY PROGRESS NOTE SUBJECTIVE: The patient is seen today, 02/15/2019, status post bronchoscopy. PHYSICAL EXAMINATION: VITAL SIGNS: Blood pressure 120/70, temperature 97.9, respiratory rate 20, and pulse 111. HEENT: Pupils equal and reactive to light. Normal-appearing mucosa of the conjunctivae, oropharynx, and nasal membrane mucosa. NECK: Supple. No JVD. No carotid bruit. No lymph node. No thyromegaly. CHEST AND LUNGS: Bilateral symmetrical expansion. Good air exchange. No rales. No rhonchi. CARDIOVASCULAR SYSTEM: PMI not localized. S1, S2. No additional sounds. ABDOMEN: Normoactive bowel sounds. No tenderness. No organomegaly. No masses. EXTREMITIES: No cyanosis, no clubbing, no edema; advanced rheumatoid arthritis. CENTRAL NERVOUS SYSTEM: Alert, awake, oriented x2. No neurological deficit could be appreciated. ASSESSMENT: 1. Acute and chronic hypercapnic respiratory failure. 2. Right pleural effusion. 3. Pneumonia. 4. Steroid-dependent rheumatoid arthritis. 5. Chronic thrombocytopenia. 6. History of thoracic spine fusion surgery. 7. Atrial fibrillation/atrial flutter/multifocal atrial tachycardia. PLAN: The patient is started on verapamil and follow with the dice spotter and certified activities director. Physical therapy and plan to discharge to transitional care unit. Michaela Wood MD
--- NOTE | 2019-02-15 23:15 | PN ---
DATE: 02/15/2019 FOLLOWUP SUBJECTIVE: The patient underwent bronchoscopy today and the findings were mucous plugging in the airway in the right middle lobe and right lower lobe. The mucus was copious, mucopurulent, and thick. Therapeutic suctioning was performed and was sent for cell count, bacteria culture, virus smear and culture, and fungal and AFB analysis and cytology. The patient is currently comfortable on nasal O2. He is in multifocal atrial tachycardia. PHYSICAL EXAMINATION: VITAL SIGNS: Blood pressure 120/70, heart rate 111, temperature 97.9, and respirations 25. HEENT: Pale conjunctivae. CHEST: Bilateral rhonchi. HEART: S1 and S2, regular. EXTREMITIES: Trace leg edema. LABORATORY DATA: Today's SMA-7: Sodium 136, potassium 4.5, chloride 108, CO2 of 34, glucose 91, BUN 25, and creatinine 0.5. Today's hemoglobin and hematocrit 10.3 and 32.4, white count 3.0, and platelet count 71,000. Repeat digoxin level is 3.4. ASSESSMENT: 1. Multifocal atrial tachycardia. 2. Digitalis overdose. 3. Chronic obstructive lung disease. 4. Coronary artery disease, status post coronary artery bypass surgery. RECOMMENDATIONS: Continue Calan at 20 mg t.i.d. Subcutaneous heparin to be resumed at every 12 hours once cleared from the pulmonary point of view after his bronchoscopy. Continue Plaquenil 200 mg daily, Solu-Medrol 20 mg intravenously every 12 hours. No further digitalis to be administered. I will repeat digitalis level tomorrow. Geo Whitmore MD
[2019-02-16] MEDS: Apap-Butalbital-Caffeine 325-50-40mg Tab PO SCH ×4 (02:44→21:11)
[2019-02-16 05:37] LABS: HEMOGLOBIN 10.8 g/dL (12.0-18.0); MEAN CORPUSCULAR HEMOGLOBIN 32.6 pg (27.0-31.0); MEAN CORPUSCULAR HGB CONC 31.6 g/dL (33.0-37.0); RBC 3.31 Mil/uL (4.40-5.90); RED CELL DISTRIBUTION WIDTH 18.8 % (11.5-14.5); WHITE BLOOD COUNT 3.3 K/uL (4.8-10.8)
[2019-02-16 05:53] LABS: BLOOD UREA NITROGEN 26 mg/dl (9-20); CALCIUM 8.7 mg/dL (8.4-10.2); GFR NON-AFRICAN AMERICAN > 60
[2019-02-16] MEDS: Ipratropium 0.02% Inhal Soln (0.5 mg/2.5 ml) UD IH SCH ×4 (08:44→19:20)
[2019-02-16] MEDS: Insulin Regular 100 units/ml SC SCH ×4 (08:45→21:35)
[2019-02-16] MEDS: MethylPREDNISolone 40 mg Vial IVP SCH ×2 (08:49→21:13)
--- NOTE | 2019-02-16 09:14 | CP.PCM.PN ---
Subjective - Date & Time of Evaluation Date of Evaluation: 02/16/19 Time of Evaluation: 09:12 - Subjective Subjective: Lying flat in bed in the ICU. Has used BiPAP overnight and is presently on nasal canula. Awake and talkative, not in distress at rest, but visibly dyspneic with simple activity in bed. Has a congested cough, but cannot expectorate. His vital signs have remained stable and he continues to be afebrile. Bronchial washings were obtained art the time of bronchoscopy and FB and fungal smears are noted. I hope I am wrong, but I do not see any routine culture/gram stain in the reports. The plugs seen in the right lung were muco-purulent grossly, so we should cover all possibilities. A prior sputum culture in 2017 did grow Pseudomonas aeruginosa and we might want to consider this as well. He was placed on Cipro/Merem at that time and ID should be consulted for their input as well. There is no dullness on percussion of the anterior chest wall, no subcutaneous emphysema. Breath sounds are very diminished bilaterally, but essentially absent in the right base. Scattered rhonchi are heard in both lungs w/o bronchial breathing or wheezing. Scattered medium rales are also present in the dependant regions of both lower lobes. Heart sounds are distant, moderately tachycardic ~100BPM while on NC. Abdomen is soft and non-tender. There is no dependant edema or cyanosis. Will discuss with nursing the request fo ID consult and antibiotic use. Continue aerosol therapy and BiPAP as before, CCT 30min. Objective - Vital Signs/Intake and Output Vital Signs (last 24 hours): Temp Pulse Resp BP Pulse Ox 97.5 F L 104 H 17 126/64 100 02/16/19 08:00 02/16/19 08:44 02/16/19 08:00 02/16/19 08:44 02/16/19 08:00 Intake and Output: 02/15/19 02/16/19 23:59 11:59 Intake Total 530 20 Output Total 400 350 Balance 130 -330 - Medications Medications: Current Medications Acetaminophen (Tylenol 325mg Tab) 650 mg PO Q6 PRN PRN Reason: Pain, Mild (1-3) Last Admin: 02/15/19 21:34 Dose: 650 mg Acetaminophen/Butalbital/Caffeine (Fioricet) 1 tab PO Q6 [facility] Last Admin: 02/16/19 02:44 Dose: Not Given Acyclovir (Zovirax 5% Oint) 1 applic EXT QID [facility] Last Admin: 02/15/19 21:23 Dose: 1 applic Artificial Tears (Artificial Tears) 2 drop OU Q4 PRN PRN Reason: Dry eyes Last Admin: 02/15/19 21:24 Dose: 1 drop Atorvastatin Calcium (Lipitor) 20 mg PO HS [facility] Last Admin: 02/15/19 21:21 Dose: 20 mg Baclofen (Lioresal) 10 mg PO DAILY [facility] Last Admin: 02/16/19 08:45 Dose: 10 mg Docusate Sodium (Colace) 100 mg PO Q12 [facility] Last Admin: 02/16/19 08:45 Dose: Not Given Famotidine (Pepcid) 20 mg PO BID [facility] Last Admin: 02/16/19 08:48 Dose: 20 mg Guaifenesin (Mucinex La) 600 mg PO Q12 [facility] Last Admin: 02/15/19 21:22 Dose: 600 mg Guaifenesin/Dextromethorphan (Robitussin Dm) 10 ml PO Q6 PRN PRN Reason: Cough Last Admin: 02/15/19 20:50 Dose: 10 ml Heparin Sodium (Porcine) (Heparin) 5,000 units SC Q12 [facility]; Protocol Last Admin: 02/15/19 21:20 Dose: 5,000 units Hydroxychloroquine Sulfate (Plaquenil) 200 mg PO DAILY [facility]; Protocol Last Admin: 02/08/19 08:46 Dose: 200 mg Insulin Human Regular (Humulin R) 0 units SC [facility]; Protocol Last Admin: 02/16/19 08:45 Dose: Not Given Ipratropium [place] (Atrovent) 0.5 mg IH RQID [facility] Last Admin: 02/16/19 08:44 Dose: 0.5 mg Lactulose (Enulose) 20 gm PO DAILY PRN PRN Reason: Constipation Levalbuterol HCl (Xopenex) 1.25 mg INH RQ4 PRN PRN Reason: Shortness of Breath Last Admin: 02/13/19 08:00 Dose: 1.25 mg Methylprednisolone (Solu-Medrol) 20 mg IVP Q12 [facility] Last Admin: 02/16/19 08:49 Dose: 20 mg Montelukast Sodium (Singulair) 10 mg PO HS [facility] Last Admin: 02/15/19 21:22 Dose: 10 mg Polyethylene Glycol (Miralax) 17 gm PO HS [facility] Last Admin: 02/15/19 21:21 Dose: 17 gm Tamsulosin HCl (Flomax) 0.4 mg PO Q12 [facility] Last Admin: 02/16/19 08:45 Dose: 0.4 mg Temazepam (Restoril) 15 mg PO HS PRN PRN Reason: Insomnia Last Admin: 02/15/19 21:35 Dose: 15 mg Verapamil HCl (Calan Tab) 40 mg PO TID [facility] Last Admin: 02/16/19 08:44 Dose: 40 mg - Labs Labs: 02/16/19 05:00 02/16/19 05:00 PT 9.7 Seconds (9.8-13.1) L 02/03/19 19:35 INR 0.9 02/03/19 19:35 APTT 31.2 Seconds (25.6-37.1) 02/11/19 16:24 Assessment and Plan (1) Pneumonia Status: Acute (2) Acute on chronic respiratory failure with hypoxemia Status: Chronic (3) Hypercapnic respiratory failure Status: Chronic (4) Mucus plugging of bronchi Status: Suspected
[2019-02-16] MEDS: Acyclovir 5% OINT 15 APPLIC/15 GM EXT SCH ×4 (11:31→21:14)
[2019-02-16] MEDS: guaiFENesin 600 mg ER Tab PO SCH ×2 (11:35→21:11)
--- NOTE | 2019-02-16 14:59 | CP.CCUPN ---
CCU Subjective - Physician Review Subjective (Free Text): Stable, sitting OOB in chair on 3 LPM Nasal cannula. HR in the 110-120s today. SBP 130s. SPo2 99% on NC. Denies any recurrent chest discomfort, denies palpitations. Afebrile now, no recurrent fever spikes. ROS: No other pertinent negs or positives on 10+ system review PMSFH: All other Nursing and physician documentation reviewed to date; no new pertinent info noted relevant to current medical problems. EXAM- HEENT: no icterus, no gaze preference NECK: No JVD visible, supple, carotids equal upstroke bilat/no bruit CHEST: decreased BS at the bases, especially R base; no wheezes audible bilaterally. Large well healed scar across left anterior chest and midline. Another T spine scar over the mid-upper back. HEART: regular, distant, S1S2, no rubs or murmurs noted ABD: soft and obese, nontender, no guarding, no organomegaly, BS hypoactive. EXT: no leg edema, no calf tenderness or palpable cords, distal pulses intact and symmetrical. Bilateral arthritic hand deformities. NEURO: no gross focal deficits. SKIN: no rashes, warm and dry LABS: WBC= 3.3 HGB= 10.8 PLTs= 66K Na= 137 K= 4.5 CL= 98 HCO3= 36 BUN/Cr= 26/0.5 BS= 114 IMPRESSION / MAJOR PROBLEMS NOW: 1. Acute on chronic Hypercarbic Resp Failure 2 RLL effusion / Pneumonia; Atelectasis and Mucous plugging 2. Steroid-Dependent Rheumatoid Arthritis 3. Chronic Thrombocytopenia 4. h/o Thoracic Spinal fusion surgery PLAN: 1. Previously elevated Digoxin level of 3.4 on 02/14/19 was for some reason obtained just approx 2 hours after IV Digoxin 0.25mg dose given that same day. Now on Verapamil as per Cardio for VR control. 2. Platelets essentially unchanged as he has been off Plaquenil. 3. Monitor serum Bicarb level levels on acetazolamide, steroids on taper. 4. Mobilize OOB; Tele bed if acceptable to all consultants / PMD.
[2019-02-16] MEDS: Artificial Tears Opht Soln OU PRN (16:03)
--- NOTE | 2019-02-16 19:56 | CP.PCM.PN ---
Subjective - Date & Time of Evaluation Date of Evaluation: 02/16/19 Time of Evaluation: 12:00 - Subjective Subjective: No complaints. Objective - Vital Signs/Intake and Output Vital Signs (last 24 hours): Temp Pulse Resp BP Pulse Ox 97.8 F 102 H 25 H 129/72 100 02/16/19 15:55 02/16/19 18:00 02/16/19 18:00 02/16/19 18:00 02/16/19 18:00 Intake and Output: 02/16/19 02/17/19 18:59 06:59 Intake Total 480 Output Total 400 Balance 80 - Medications Medications: Current Medications Acetaminophen (Tylenol 325mg Tab) 650 mg PO Q6 PRN PRN Reason: Pain, Mild (1-3) Last Admin: 02/15/19 21:34 Dose: 650 mg Acetaminophen/Butalbital/Caffeine (Fioricet) 1 tab PO Q6 [facility] Last Admin: 02/16/19 15:23 Dose: 1 tab Acyclovir (Zovirax 5% Oint) 1 applic EXT QID [facility] Last Admin: 02/16/19 16:06 Dose: 1 applic Artificial Tears (Artificial Tears) 2 drop OU Q4 PRN PRN Reason: Dry eyes Last Admin: 02/16/19 16:03 Dose: 2 drop Atorvastatin Calcium (Lipitor) 20 mg PO HS [facility] Last Admin: 02/15/19 21:21 Dose: 20 mg Baclofen (Lioresal) 10 mg PO DAILY [facility] Last Admin: 02/16/19 08:45 Dose: 10 mg Docusate Sodium (Colace) 100 mg PO Q12 [facility] Last Admin: 02/16/19 08:45 Dose: Not Given Famotidine (Pepcid) 20 mg PO BID [facility] Last Admin: 02/16/19 16:04 Dose: 20 mg Guaifenesin (Mucinex La) 600 mg PO Q12 [facility] Last Admin: 02/16/19 11:35 Dose: 600 mg Guaifenesin/Dextromethorphan (Robitussin Dm) 10 ml PO Q6 PRN PRN Reason: Cough Last Admin: 02/15/19 20:50 Dose: 10 ml Heparin Sodium (Porcine) (Heparin) 5,000 units SC Q12 [facility]; Protocol Last Admin: 02/16/19 11:38 Dose: 5,000 units Hydroxychloroquine Sulfate (Plaquenil) 200 mg PO DAILY [facility]; Protocol Last Admin: 02/08/19 08:46 Dose: 200 mg Insulin Human Regular (Humulin R) 0 units SC ACHS [facility]; Protocol Last Admin: 02/16/19 16:01 Dose: Not Given Ipratropium [place] (Atrovent) 0.5 mg IH RQID [facility] Last Admin: 02/16/19 19:20 Dose: 0.5 mg Lactulose (Enulose) 20 gm PO DAILY PRN PRN Reason: Constipation Levalbuterol HCl (Xopenex) 1.25 mg INH RQ4 PRN PRN Reason: Shortness of Breath Last Admin: 02/13/19 08:00 Dose: 1.25 mg Methylprednisolone (Solu-Medrol) 20 mg IVP Q12 [facility] Last Admin: 02/16/19 08:49 Dose: 20 mg Montelukast Sodium (Singulair) 10 mg PO HS [facility] Last Admin: 02/15/19 21:22 Dose: 10 mg Polyethylene Glycol (Miralax) 17 gm PO HS [facility] Last Admin: 02/15/19 21:21 Dose: 17 gm Tamsulosin HCl (Flomax) 0.4 mg PO Q12 [facility] Last Admin: 02/16/19 08:45 Dose: 0.4 mg Temazepam (Restoril) 15 mg PO HS PRN PRN Reason: Insomnia Last Admin: 02/15/19 21:35 Dose: 15 mg Verapamil HCl (Calan Tab) 40 mg PO TID [facility] Last Admin: 02/16/19 16:06 Dose: 40 mg - Labs Labs: 02/16/19 05:00 02/16/19 05:00 PT 9.7 Seconds (9.8-13.1) L 02/03/19 19:35 INR 0.9 02/03/19 19:35 APTT 31.2 Seconds (25.6-37.1) 02/11/19 16:24 - Head Exam Head Exam: ATRAUMATIC - Eye Exam Eye Exam: Normal appearance - ENT Exam ENT Exam: Mucous Membranes Dry - Respiratory Exam Respiratory Exam: Decreased Breath Sounds - Cardiovascular Exam Cardiovascular Exam: +S1, +S2 - GI/Abdominal Exam GI & Abdominal Exam: Normal Bowel Sounds Assessment and Plan (1) Pancytopenia Assessment & Plan: exacerbated by acute illness, polypharmacy prior improvement in cytopenias when holding hydroxychloroquine; on hold WBC and H/H improved, plt low stable normal iron/b12/folate stores transfusion support PRN Status: Acute (2) Pancreatic mass Assessment & Plan: prior elevation in chromogranin A level; repeated ?neuroendocrine tumor not a good surgical candidate, will cont. to monitor Status: Acute
--- NOTE | 2019-02-16 20:45 | PN ---
DATE: 02/16/2019 SUBJECTIVE: The patient is seen today, 02/16/2019. He still has exertional respiratory distress. PHYSICAL EXAMINATION: VITAL SIGNS: Heart rate is 110, blood pressure 130/65, temperature 98.4, respiratory rate 28. HEENT: Pupils equal and reactive to light. Normal-appearing mucosa of the conjunctivae, oropharynx and nasal membrane mucosa. NECK: Supple. No JVD. No carotid bruit. No lymph nodes. No thyromegaly. CHEST AND LUNGS: Bilateral symmetrical expansion. Good air exchange. Few basilar rales with scattered rhonchi. CARDIOVASCULAR: PMI not localized. S1 and S2. No additional sounds. ABDOMEN: Normoactive bowel sounds. No tenderness. No organomegaly. No masses. EXTREMITIES: No cyanosis. No clubbing. No edema. CENTRAL NERVOUS SYSTEM: Alert, awake, oriented x2. No neurological deficits could be appreciated. ASSESSMENT: 1. Hypercapnic respiratory failure. 2. Chronic obstructive lung disease exacerbation. 3. Pneumonia. 4. Rheumatoid arthritis. PLAN: Continue current medications including verapamil. Physical therapy. Follow Pulmonary and Cardiology recommendations and when the patient is stable, we will discharge to subacute rehabilitation. Michaela Wood MD
[2019-02-16] MEDS: POLYETHYLENE GLYCOL 3350 17 GM/Dose PACKET PO SCH (21:13)
--- NOTE | 2019-02-16 22:40 | PN ---
DATE: 02/16/2019 SUBJECTIVE: The patient is comfortable on nasal O2. He is currently in sinus tachycardia with frequent APCs. No reports of hypotension. PHYSICAL EXAMINATION: VITAL SIGNS: Blood pressure 130/65, heart rate 104, temperature 97.8, and respirations 26. HEENT: Normocephalic. CHEST: Bibasilar rhonchi. HEART: S1 and S2 regular. ABDOMEN: Soft. EXTREMITIES: No pedal edema. LABORATORY DATA: Today's hemoglobin and hematocrit 10.8 and 31.1, white count 3.3, and platelet count 66,000. Today's SMA-7: Sodium 137, potassium 4.5, chloride 98, CO2 of 36, glucose 114, BUN 26, and creatinine 0.5. Today's serum digoxin level is 1.4. ASSESSMENT: 1. Exacerbation of chronic obstructive lung disease. 2. Status post bronchoscopy with removal of mucus plugs. 3. Improved digitalis overdose. 4. Coronary artery disease with history of coronary artery bypass surgery. 5. Worsening thrombocytopenia. RECOMMENDATIONS: Continue Calan at 40 mg t.i.d., Colace 100 mg twice a day, furosemide tablet q.6 hours, may hold subcutaneous heparin if platelet counts continue to worsen. Continue Mucinex LA 600 mg twice a day, Plaquenil 200 mg daily, Robitussin DM at 10 mg every 6 hours, and Solu-Medrol 20 mg daily a.c. q.12 hours. Geo Whitmore MD
[2019-02-17] MEDS: Apap-Butalbital-Caffeine 325-50-40mg Tab PO SCH ×4 (05:00→21:01)
[2019-02-17] MEDS: guaiFENesin DM 200 mg-20 mg/10 ml UD PO PRN (05:46)
[2019-02-17] MEDS: Insulin Regular 100 units/ml SC SCH ×4 (06:50→21:31)
[2019-02-17 07:37] LABS: BASO % 0.4 % (0.0-2.0); EOS % 0.3 % (0.0-4.0); HEMOGLOBIN 10.7 g/dL (12.0-18.0); LYMPH # 1.4 K/uL (1.0-4.3); LYMPH % 36.3 % (20.0-40.0); MEAN CELL VOLUME 102.4 fl (80.0-94.0); MEAN CORPUSCULAR HEMOGLOBIN 32.7 pg (27.0-31.0); MEAN CORPUSCULAR HGB CONC 31.9 g/dL (33.0-37.0); MEAN PLATELET VOLUME 11.4 fl (7.2-11.7); MONO # 0.6 K/uL (0.0-0.8); MONO % 15.4 % (0.0-10.0); NEUT # 1.9 K/uL (1.8-7.0); NEUT % 47.6 % (50.0-75.0); NRBC % 0.7 % (0.0-0.0); RBC 3.26 Mil/uL (4.40-5.90); RED CELL DISTRIBUTION WIDTH 19.1 % (11.5-14.5); WHITE BLOOD COUNT 3.9 K/uL (4.8-10.8)
[2019-02-17 07:52] LABS: BLOOD UREA NITROGEN 22 mg/dl (9-20); CALCIUM 8.7 mg/dL (8.4-10.2); GFR NON-AFRICAN AMERICAN > 60
[2019-02-17] MEDS: Ipratropium 0.02% Inhal Soln (0.5 mg/2.5 ml) UD IH SCH ×4 (08:09→19:12)
--- NOTE | 2019-02-17 08:11 | CP.CCUPN ---
CCU Subjective - Physician Review Subjective (Free Text): Stable, BiPAP on standby now, on 3 LPM NC, no distress, HR 80s in Sins with PACs, SBP levels lower 100-110s, denies any dizziness, palpitations, chest discomfort. Afebrile now, no recurrent fever spikes. ROS: No other pertinent negs or positives on 10+ system review PMSFH: All other Nursing and physician documentation reviewed to date; no new pertinent info noted relevant to current medical problems. EXAM- HEENT: no icterus, no gaze preference NECK: No JVD visible, supple, carotids equal upstroke bilat/no bruit CHEST: decreased BS at the bases, especially R base; no wheezes audible bilaterally. Large well healed scar across left anterior chest and midline. HEART: regular, distant, S1S2, no rubs or murmurs noted ABD: soft and obese, nontender, no guarding, no organomegaly, BS hypoactive. EXT: no leg edema, no calf tenderness or palpable cords, distal pulses intact and symmetrical. Bilateral arthritic hand deformities. NEURO: no gross focal deficits. SKIN: no rashes, warm and dry LABS: WBC= 3.9 HGB= 10.7 PLTs= 63K Na= 134 K= 5.4 CL= 97 HCO3= 34 BUN/Cr= 22/0.4 BS= 95 IMPRESSION / MAJOR PROBLEMS NOW: 1. Acute on chronic Hypercarbic Resp Failure 2 RLL effusion / Pneumonia; Atelectasis and Mucous plugging 2. Steroid-Dependent Rheumatoid Arthritis 3. Chronic Thrombocytopenia 4. h/o Thoracic Spinal fusion surgery PLAN: 1. Stable resp status since FOB 2 days ago. 2. Tachyarrythmis controlled on verapamil 3. Watch K levels. 4. Tolerating OOB to chair up to 90-120 mins. 5. WBC slowly improving, but Platelets still low, Plaquenil on hold, no increase in joint discomfort. Steroid taper. 6. Stable for transfer to Tele Bed.
[2019-02-17] MEDS: guaiFENesin 600 mg ER Tab PO SCH ×2 (09:04→20:40)
[2019-02-17] MEDS: Acyclovir 5% OINT 15 APPLIC/15 GM EXT SCH ×4 (09:07→21:05)
[2019-02-17] MEDS: MethylPREDNISolone 40 mg Vial IVP SCH (09:07)
--- NOTE | 2019-02-17 10:08 | CP.PCM.PN ---
Subjective - Date & Time of Evaluation Date of Evaluation: 02/17/19 Time of Evaluation: 10:08 - Subjective Subjective: Seen on rounds in the ICU, lying almost flat in bed. SpO2 haqs been maintained with standard nasal canula. Did not wear BiPAP the night before, TCO2 has increased. Awake and alert, complains that his 'body is broken'. He remains afebrile, unable to expectorate sputum despite cough assist. No chest x-ray this morning. Trace dependant edema, no cyanosis. Pharynx pink and moist w/o exudate. Neck is supple and trachea midline. No dullness to percussion of anterior chest. Breath sounds are diminished bilaterally especially in RLL. Scattered rhonchi bilaterally in dependant regions. No audible wheezing or bronchial breathing. Persistent RLL atelectasis with mucopurulent plug-aspirated. Would request ID input regarding use of antibiotics. No culture resulted from bronchial lavage. Previous culture grew pseudomonas. Continue BiPAP support and cough assist. Objective - Vital Signs/Intake and Output Vital Signs (last 24 hours): Temp Pulse Resp BP Pulse Ox 97.8 F 113 H 15 122/75 100 02/17/19 08:00 02/17/19 09:00 02/17/19 08:00 02/17/19 09:00 02/17/19 08:00 Intake and Output: 02/16/19 02/17/19 23:59 11:59 Intake Total 360 0 Output Total 750 650 Balance -390 -650 - Medications Medications: Current Medications Acetaminophen (Tylenol 325mg Tab) 650 mg PO Q6 PRN PRN Reason: Pain, Mild (1-3) Last Admin: 02/15/19 21:34 Dose: 650 mg Acetaminophen/Butalbital/Caffeine (Fioricet) 1 tab PO Q6 [facility] Last Admin: 02/17/19 09:02 Dose: 1 tab Acyclovir (Zovirax 5% Oint) 1 applic EXT QID [facility] Last Admin: 02/17/19 09:07 Dose: 1 applic Artificial Tears (Artificial Tears) 2 drop OU Q4 PRN PRN Reason: Dry eyes Last Admin: 02/16/19 16:03 Dose: 2 drop Atorvastatin Calcium (Lipitor) 20 mg PO HS [facility] Last Admin: 02/16/19 21:11 Dose: 20 mg Baclofen (Lioresal) 10 mg PO DAILY [facility] Last Admin: 02/17/19 09:04 Dose: 10 mg Docusate Sodium (Colace) 100 mg PO Q12 [facility] Last Admin: 02/17/19 09:01 Dose: 100 mg Famotidine (Pepcid) 20 mg PO BID [facility] Last Admin: 02/17/19 09:07 Dose: 20 mg Guaifenesin (Mucinex La) 600 mg PO Q12 [facility] Last Admin: 02/17/19 09:04 Dose: 600 mg Guaifenesin/Dextromethorphan (Robitussin Dm) 10 ml PO Q6 PRN PRN Reason: Cough Last Admin: 02/17/19 05:46 Dose: 10 ml Heparin Sodium (Porcine) (Heparin) 5,000 units SC Q12 [facility]; Protocol Last Admin: 02/17/19 09:03 Dose: 5,000 units Hydroxychloroquine Sulfate (Plaquenil) 200 mg PO DAILY [facility]; Protocol Last Admin: 02/08/19 08:46 Dose: 200 mg Insulin Human Regular (Humulin R) 0 units SC ACHS [facility]; Protocol Last Admin: 02/17/19 06:50 Dose: Not Given Ipratropium [place] (Atrovent) 0.5 mg IH RQID [facility] Last Admin: 02/17/19 08:09 Dose: 0.5 mg Lactulose (Enulose) 20 gm PO DAILY PRN PRN Reason: Constipation Levalbuterol HCl (Xopenex) 1.25 mg INH RQ4 PRN PRN Reason: Shortness of Breath Last Admin: 02/13/19 08:00 Dose: 1.25 mg Methylprednisolone (Solu-Medrol) 20 mg IVP Q12 [facility] Last Admin: 02/17/19 09:07 Dose: 20 mg Montelukast Sodium (Singulair) 10 mg PO HS [facility] Last Admin: 02/16/19 21:11 Dose: 10 mg Polyethylene Glycol (Miralax) 17 gm PO HS [facility] Last Admin: 02/16/19 21:13 Dose: 17 gm Tamsulosin HCl (Flomax) 0.4 mg PO Q12 [facility] Last Admin: 02/17/19 09:02 Dose: 0.4 mg Temazepam (Restoril) 15 mg PO HS PRN PRN Reason: Insomnia Last Admin: 02/15/19 21:35 Dose: 15 mg Verapamil HCl (Calan Tab) 40 mg PO TID [facility] Last Admin: 02/17/19 09:00 Dose: 40 mg - Labs Labs: 02/17/19 06:21 02/17/19 06:21 PT 9.7 Seconds (9.8-13.1) L 02/03/19 19:35 INR 0.9 02/03/19 19:35 APTT 31.2 Seconds (25.6-37.1) 02/11/19 16:24 Assessment and Plan (1) Pneumonia Status: Acute (2) Acute on chronic respiratory failure with hypoxemia Status: Chronic (3) Hypercapnic respiratory failure Status: Chronic (4) Mucus plugging of bronchi Status: Suspected
[2019-02-17] MEDS: Artificial Tears Opht Soln OU PRN ×2 (12:06→16:05)
--- NOTE | 2019-02-17 12:47 | CP.PCM.CON ---
History of Present Illness - History of Present Illness History of Present Illness: Infectious Disease Consultation- Asked to see this patient at the request of the Category Planner for help with antibiotics for pneumonia . HPI- History obtained from the medical chart and Prototype Sewer and nurse and some from the patient. Pt. is a 73 year old male with multiple hospitalizations for COPD exacerbation, pneumonias in the past with the last admission being 3 months ago who was admitted 2 weeks ago with c/o sob, productive cough and fever and chills. On admission he was found to have b/l lower lobe pneumonia, hypotensive and and was admitted to ICU . he was laso found to have varicella zoster on the abdomen which as per nut=rse has since all crusted over and resolved adn he has completed course of acyclovi r. Pt. has also completed course of vanco and zithromax as per med records and apparently he was transferred out of ICU to tele last week but he developed tachycardia ( rapid a.fib) and was transferred back to ICU for cardizem drip. he is now on verapamil for this. I'm asked to evaluate because pt. had bronch done 3 days ago and as per clinical laboratory scientist there was purulent bronchial washing and hence i'm asked to evaluate and help with antibiotic management. Pt. does have h/o rheumatoid arthritis, KRISTOPHER and COPD with a prior episode of pneumonia as well. pt. also states he has had spinal surgeries in the past. he denies any fever or chills , denies any nausea, still has sob, + cough but less, denies any chest pain, c/o pain in his joints. denies any dysurea, denies any diarrhea. Review of Systems - Review of Systems Review of Systems: ROS- denies any fever or chills, denies any nausea or vomiting, + sob, less cough, denies any chest pain, denies any abd. pain. his zoster has resolved as per pt. dhe c/o chronic joint pains form his RA denies any diarrhea, denies any dysurea Past Patient History - Infectious Disease Hx of Infectious Diseases: None - Past Medical History & Family History Past Medical History?: Yes - Past Social History Smoking Status: Former Smoker Chewing Tobacco Use: No Cigar Use: Yes Alcohol: None Drugs: Denies - CARDIAC Hx Congestive Heart Failure: No Hx Hypercholesterolemia: Yes Hx Hypertension: Yes - PULMONARY Hx Asthma: Yes Hx Bronchitis: Yes Hx Chronic Obstructive Pulmonary Disease (COPD): Yes Hx Pneumonia: Yes Hx Sleep Apnea: Yes - NEUROLOGICAL Hx Alzheimer's Disease: Yes Hx Dementia: Yes Hx Seizures: No - HEENT Hx HEENT Problems: No - RENAL Hx Chronic Kidney Disease: No - ENDOCRINE/METABOLIC Hx Diabetes Mellitus Type 2: Yes - HEMATOLOGICAL/ONCOLOGICAL Hx Anemia: Yes - INTEGUMENTARY Hx Dermatological Problems: No - MUSCULOSKELETAL/RHEUMATOLOGICAL Hx Arthritis: Yes (BACK) Hx Back Pain: Yes Hx Fractures: Yes (Hip) Hx Rheumatoid Arthritis: Yes - GASTROINTESTINAL Hx Gastrointestinal Disorders: No - GENITOURINARY/GYNECOLOGICAL Hx Genitourinary Disorders: No Hx Sexually Transmitted Disorders: No - PSYCHIATRIC Hx Psychophysiologic Disorder: No Hx Substance Use: No - SURGICAL HISTORY Hx Coronary Artery Bypass Graft: Yes (1999) Hx Coronary Stent: Yes Hx Orthopedic Surgery: Yes - ANESTHESIA Hx Anesthesia: Yes Hx Anesthesia Reactions: No Hx Malignant Hyperthermia: No Meds Allergies/Adverse Reactions: Allergies Allergy/AdvReac Type Severity Reaction Status Date / Time Penicillins Allergy Unknown RASH Verified 02/06/19 12:56 - Medications Medications: Current Medications Acetaminophen (Tylenol 325mg Tab) 650 mg PO Q6 PRN PRN Reason: Pain, Mild (1-3) Last Admin: 02/15/19 21:34 Dose: 650 mg Acetaminophen/Butalbital/Caffeine (Fioricet) 1 tab PO Q6 [facility] Last Admin: 02/17/19 09:02 Dose: 1 tab Acyclovir (Zovirax 5% Oint) 1 applic EXT QID [facility] Last Admin: 02/17/19 12:04 Dose: 1 applic Artificial Tears (Artificial Tears) 2 drop OU Q4 PRN PRN Reason: Dry eyes Last Admin: 02/17/19 12:06 Dose: 2 drop Atorvastatin Calcium (Lipitor) 20 mg PO HS [facility] Last Admin: 02/16/19 21:11 Dose: 20 mg Baclofen (Lioresal) 10 mg PO DAILY [facility] Last Admin: 02/17/19 09:04 Dose: 10 mg Docusate Sodium (Colace) 100 mg PO Q12 [facility] Last Admin: 02/17/19 09:01 Dose: 100 mg Famotidine (Pepcid) 20 mg PO BID [facility] Last Admin: 02/17/19 09:07 Dose: 20 mg Guaifenesin (Mucinex La) 600 mg PO Q12 [facility] Last Admin: 02/17/19 09:04 Dose: 600 mg Guaifenesin/Dextromethorphan (Robitussin Dm) 10 ml PO Q6 PRN PRN Reason: Cough Last Admin: 02/17/19 05:46 Dose: 10 ml Heparin Sodium (Porcine) (Heparin) 5,000 units SC Q12 [facility]; Protocol Last Admin: 02/17/19 09:03 Dose: 5,000 units Hydroxychloroquine Sulfate (Plaquenil) 200 mg PO DAILY [facility]; Protocol Last Admin: 02/08/19 08:46 Dose: 200 mg Insulin Human Regular (Humulin R) 0 units SC ACHS [facility]; Protocol Last Admin: 02/17/19 12:03 Dose: Not Given Ipratropium [place] (Atrovent) 0.5 mg IH RQID [facility] Last Admin: 02/17/19 11:39 Dose: 0.5 mg Lactulose (Enulose) 20 gm PO DAILY PRN PRN Reason: Constipation Levalbuterol HCl (Xopenex) 1.25 mg INH RQ4 PRN PRN Reason: Shortness of Breath Last Admin: 02/13/19 08:00 Dose: 1.25 mg Methylprednisolone (Medrol) 8 mg PO BID [facility] Montelukast Sodium (Singulair) 10 mg PO HS [facility] Last Admin: 02/16/19 21:11 Dose: 10 mg Polyethylene Glycol (Miralax) 17 gm PO HS [facility] Last Admin: 02/16/19 21:13 Dose: 17 gm Tamsulosin HCl (Flomax) 0.4 mg PO Q12 [facility] Last Admin: 02/17/19 09:02 Dose: 0.4 mg Temazepam (Restoril) 15 mg PO HS PRN PRN Reason: Insomnia Last Admin: 02/15/19 21:35 Dose: 15 mg Verapamil HCl (Calan Tab) 40 mg PO TID [facility] Last Admin: 02/17/19 12:02 Dose: 40 mg Physical Exam - Constitutional Appears: No Acute Distress, Chronically Ill - Head Exam Head Exam: ATRAUMATIC - Eye Exam Eye Exam: EOMI, PERRL - Neck Exam Neck exam: Positive for: Full Rom - Respiratory Exam Respiratory Exam: NORMAL BREATHING PATTERN Additional comments: decreased breath sounds bibasilar crackles heard at right base no wheezing - Cardiovascular Exam Additional comments: Irregularly Irregular - GI/Abdominal Exam GI & Abdominal Exam: Normal Bowel Sounds, Soft Additional comments: NT, ND - Extremities Exam Additional comments: no edema B/L LE - Neurological Exam Neurological exam: Alert, Oriented x3 - Skin Additional comments: no evidence of any active zoster now Results - Vital Signs Recent Vital Signs: Last Vital Signs Temp 97.6 F 02/17/19 12:00 Pulse 99 H 02/17/19 12:02 Resp 17 02/17/19 12:00 BP 105/53 L 02/17/19 12:02 Pulse Ox 98 02/17/19 12:00 - Labs Result Diagrams: 02/17/19 06:21 02/17/19 06:21 Labs: Laboratory Results - last 24 hr 02/16/19 02/16/19 02/17/19 16:00 21:27 05:14 WBC RBC Hgb Hct MCV MCH MCHC RDW Plt Count MPV Neut % (Auto) Lymph % (Auto) [place] % (Auto) Eos % (Auto) Baso % (Auto) Neut # (Auto) Lymph # (Auto) [place] # (Auto) Eos # (Auto) Baso # (Auto) Sodium Potassium Chloride Carbon Dioxide Anion Gap BUN Creatinine Est GFR ( Amer) Est GFR (Non-Af Amer) POC Glucose (mg/dL) 76 79 93 Random Glucose Calcium 02/17/19 02/17/19 06:21 06:21 WBC 3.9 L RBC 3.26 L Hgb 10.7 L Hct 33.4 L MCV 102.4 H MCH 32.7 H MCHC 31.9 L RDW 19.1 H Plt Count 63 L MPV 11.4 Neut % (Auto) 47.6 L Lymph % (Auto) 36.3 [place] % (Auto) 15.4 H Eos % (Auto) 0.3 Baso % (Auto) 0.4 Neut # (Auto) 1.9 Lymph # (Auto) 1.4 [place] # (Auto) 0.6 Eos # (Auto) 0.0 Baso # (Auto) 0.0 Sodium 134 Potassium 5.4 H Chloride 97 L Carbon Dioxide 34 H Anion Gap 8 L BUN 22 H Creatinine 0.4 L Est GFR ( Amer) > 60 Est GFR (Non-Af Amer) > 60 POC Glucose (mg/dL) Random Glucose 95 Calcium 8.7 Microbiology 02/15/19 10:20 Other: Please Indicate Mycobacterial Culture - Preliminary 02/15/19 10:20 Bronchial Washings Fungal Culture - Preliminary 02/11/19 07:09 Naris MRSA Culture (Admit) - Final MRSA NOT DETECTED 02/09/19 19:00 Naris MRSA Culture (Admit) - Final MRSA NOT DETECTED 02/03/19 19:35 Blood-Venous Blood Culture - Final NO GROWTH AFTER 5 DAYS 02/03/19 19:35 Blood-Venous Gram Stain - Final TEST NOT PERFORMED 02/03/19 19:35 Blood-Venous Blood Culture - Final NO GROWTH AFTER 5 DAYS 02/03/19 19:35 Blood-Venous Gram Stain - Final TEST NOT PERFORMED 02/03/19 08:00 Sputum Gram Stain - Final 02/03/19 08:00 Sputum Sputum Culture - Final NORMAL ORAL KRISS 02/04/19 06:03 Naris MRSA Culture (Admit) - Final MRSA NOT DETECTED 02/03/19 20:50 Urine,Clean Catch Urine Culture - Final No Growth (<1,000 CFU/ML) Microbiology 11/30/16 01:00 Sputum Gram Stain - Final 11/30/16 01:00 Sputum Sputum Culture - Final Pseudomonas Aeruginosa Accession No. : [id number] Patient Name / ID : PURNIMA Poole / [id number] Exam Date : 02/15/2019 08:49:16 ( Approved ) Study Comment : Sex / Age : M / 73Y Creator : Mikel Yu MD Dictator : Mikel Yu MD Freelance Writer : Carton Marker Machine : Mikel Yu MD Approver2 : Report Date : 02/15/2019 10:22:38 My Comment : Date of service: 02/15/2019 HISTORY: atelectasis RLL COMPARISON: 02/15/2019 at 4:17 a.m. TECHNIQUE: 1 view obtained. FINDINGS: LUNGS: Opacity at left base. Infiltrate versus atelectasis. PLEURA: Moderate right and small left pleural effusion. No pneumothorax. CARDIOVASCULAR: There is atherosclerotic calcification of the thoracic aorta. Normal cardiac size. No congestive change. Thoracic spinal fixation hardware noted. OSSEOUS STRUCTURES: No significant abnormalities. VISUALIZED UPPER ABDOMEN: Normal. OTHER FINDINGS: None. IMPRESSION: Bilateral pleural effusion, right greater than left. Infiltrate versus atele ctasis at left base. Assessment & Plan (1) COPD exacerbation Status: Acute Priority: High (2) HCAP (healthcare-associated pneumonia) Status: Acute Priority: High (3) Paroxysmal atrial fibrillation with rapid ventricular response Status: Acute Priority: High (4) CHF (congestive heart failure) Status: Acute Priority: High (5) COPD (chronic obstructive pulmonary disease) Status: Chronic Priority: High (6) Acute respiratory failure with hypoxia and hypercarbia Status: Acute - Assessment and Plan (Free Text) Assessment: A/P- 73 year old male with h/o RA on streoids and Plaquenil, COPD, admitted with copd exacerbation, hypercapneic resp faillure and zoster on abdomen . zoster has resolved , had completed course of acyclovir as per Primary doc. s/p bronch few days ago whoch as per clinical laboratory scientist had shown thick purulent fluid . afebrile blood cx- neg x 3 sputum cx- negative 02/03/2019-\BAl fungal and AFB smear- neg so far. Plan- check sputum cx. await BAL cx. advise in light of the fact that abraham has had multiple hospitalizations and is on steroids to place on broad spectrum antibiotics empirically to cover for Gram neg including Pseudomonas and staph. advise to place pt. on IV meropnem ( low chance of cross reactivity with PCN). monitor closely. advise to start IV vancomyicn , keep trough <15. advise to also start IV cipro sinc ehis sputum cx from 2017 showed pseudomonas with good CHICO sens to cipro . All labs and imaging and chart notes reviewed. all above d/w patient and he verbalizes full understanding of all above. d/w Prototype Sewer as well. Critical care time spent 60 minutes.
[2019-02-17] MEDS: Meropenem 1 GM in Sodium Chloride 0.9% 100 ML IVPB SCH (16:07)
[2019-02-17] MEDS: Ciprofloxacin 200mg/100ml D5W 100 ML IVPB SCH (20:38)
[2019-02-17] MEDS: POLYETHYLENE GLYCOL 3350 17 GM/Dose PACKET PO SCH (21:03)
[2019-02-18] MEDS: Meropenem 1 GM in Sodium Chloride 0.9% 100 ML IVPB SCH ×3 (00:40→17:08)
[2019-02-18] MEDS: Apap-Butalbital-Caffeine 325-50-40mg Tab PO SCH ×6 (05:03→21:03)
[2019-02-18 05:14] LABS: HEMOGLOBIN 10.2 g/dL (12.0-18.0); MEAN CELL VOLUME 103.4 fl (80.0-94.0); MEAN CORPUSCULAR HEMOGLOBIN 32.5 pg (27.0-31.0); MEAN CORPUSCULAR HGB CONC 31.5 g/dL (33.0-37.0); RBC 3.14 Mil/uL (4.40-5.90); RED CELL DISTRIBUTION WIDTH 19.2 % (11.5-14.5); WHITE BLOOD COUNT 4.7 K/uL (4.8-10.8)
[2019-02-18 05:31] LABS: BLOOD UREA NITROGEN 18 mg/dl (9-20); CALCIUM 8.7 mg/dL (8.4-10.2); GFR NON-AFRICAN AMERICAN > 60
[2019-02-18] MEDS: Ipratropium 0.02% Inhal Soln (0.5 mg/2.5 ml) UD IH SCH ×4 (07:32→19:59)
--- NOTE | 2019-02-18 07:52 | CP.CCUPN ---
CCU Subjective - Physician Review Subjective (Free Text): Stable, BiPAP on standby now, at times has refused BiPAP overnight, now on 3 LPM NC, no distress, HR 100s in A Fib, SBP 110s, denies any dizziness, palpitations, chest discomfort. Afebrile now, no recurrent fever spikes. ROS: No other pertinent negs or positives on 10+ system review PMSFH: All other Nursing and physician documentation reviewed to date; no new pertinent info noted relevant to current medical problems. EXAM- HEENT: no icterus, no gaze preference NECK: No JVD visible, supple, carotids equal upstroke bilat/no bruit CHEST: decreased BS at the bases, especially R base; no wheezes audible bilaterally. Large well healed scar across left anterior chest and midline. HEART: regular, distant, S1S2, no rubs or murmurs noted ABD: soft and obese, nontender, no guarding, no organomegaly, BS hypoactive. EXT: no leg edema, no calf tenderness or palpable cords, distal pulses intact and symmetrical. Bilateral arthritic hand deformities. NEURO: no gross focal deficits. SKIN: no rashes, warm and dry LABS: WBC= 4.7 HGB= 10.2 PLTs= 67K Na= 139 K= 4.4 CL= 95 HCO3= 40 BUN/Cr= 18/0.5 BS= 76 IMPRESSION / MAJOR PROBLEMS NOW: 1. Acute on chronic Hypercarbic Resp Failure 2 RLL effusion / Pneumonia; Atelectasis and Mucous plugging 2. Steroid-Dependent Rheumatoid Arthritis 3. Chronic Thrombocytopenia 4. h/o Thoracic Spinal fusion surgery PLAN: 1. Stable resp status since FOB; appears to have less dependence on BiPAP. New Abx coverage started as per ID 2. Tachyarrythmias controlled on verapamil, remains in A Fib. Consider AC in no contraindications. 3. K levels improved rom yesterday. 4. WBC slowly improving, but Platelets still low, Plaquenil on hold, no increase in joint discomfort. Steroid taper. 5. Previous zoster-like lesions no longer present, stop Zovirax oint.
[2019-02-18] MEDS: guaiFENesin DM 200 mg-20 mg/10 ml UD PO PRN ×2 (08:53→14:32)
[2019-02-18] MEDS: guaiFENesin 600 mg ER Tab PO SCH ×2 (08:55→20:46)
[2019-02-18] MEDS: Insulin Regular 100 units/ml SC SCH ×4 (09:07→21:12)
[2019-02-18] MEDS: Acyclovir 5% OINT 15 APPLIC/15 GM EXT SCH ×4 (09:14→21:07)
[2019-02-18] MEDS: Ciprofloxacin 200mg/100ml D5W 100 ML IVPB SCH ×2 (10:18→20:41)
[2019-02-18] MEDS: Levalbuterol 1.25 MG/3 ML Inhal Soln UD INH PRN (19:59)
[2019-02-18] MEDS: POLYETHYLENE GLYCOL 3350 17 GM/Dose PACKET PO SCH (21:05)
--- NOTE | 2019-02-18 21:10 | PN ---
DATE: 02/17/2019 DAILY PROGRESS NOTE SUBJECTIVE: The patient was seen on 02/17/2019. He was still in respiratory distress with exertional shortness of breath. The patient is status post fiberoptic bronchoscopy that showed purulent sputum out of the airway. The patient had an ID consultation done, and the patient was started on multiple antibiotics covering also Pseudomonas. PHYSICAL EXAMINATION: VITAL SIGNS: The patient is afebrile with blood pressure 100/70, temperature 98.2, respiratory rate 24, and pulse ranging from 110 to 130, irregularly irregular. HEENT: Pupils equal and reactive to light. Normal-appearing mucosa of the conjunctivae, oropharynx and nasal membrane mucosa. NECK: Supple. No JVD. No carotid bruit. No lymph nodes. CHEST AND LUNGS: Decreased air entry in both lower lung amos. CARDIOVASCULAR SYSTEM: PMI not localized. S1 and S2. No additional sounds. ABDOMEN: Normoactive bowel sounds. No tenderness. No organomegaly. No masses. EXTREMITIES: No cyanosis. No clubbing. No edema. There is deformity of the rheumatoid arthritis. CENTRAL NERVOUS SYSTEM: Alert, awake and oriented x2 and moves all extremities equally. ASSESSMENT: Pneumonia, hypercapnic respiratory failure, exacerbation of chronic obstructive pulmonary disease, supraventricular tachycardia. DIFFERENTIAL DIAGNOSIS: Atrial fibrillation versus multifocal atrial tachycardia. PLAN: Continue verapamil, antibiotics, bronchodilators and taper steroids. The patient is also on BiPAP intermittently and is off BiPAP as tolerated. Michaela Wood MD
--- NOTE | 2019-02-18 21:17 | CP.PCM.PN ---
Subjective - Date & Time of Evaluation Date of Evaluation: 02/17/19 Time of Evaluation: 17:00 - Subjective Subjective: Appears comfortable Objective - Vital Signs/Intake and Output Vital Signs (last 24 hours): Temp Pulse Resp BP Pulse Ox 98.5 F 117 H 16 103/60 98 02/18/19 16:00 02/18/19 18:00 02/18/19 18:00 02/18/19 18:00 02/18/19 18:00 Intake and Output: 02/18/19 02/19/19 18:59 06:59 Intake Total 554 Output Total 1100 Balance -546 - Medications Medications: Current Medications Acetaminophen (Tylenol 325mg Tab) 650 mg PO Q6 PRN PRN Reason: Pain, Mild (1-3) Last Admin: 02/15/19 21:34 Dose: 650 mg Acetaminophen/Butalbital/Caffeine (Fioricet) 1 tab PO Q6 [facility] Last Admin: 02/18/19 21:03 Dose: 1 tab Acetazolamide (Diamox 250 Mg Tab) 250 mg PO DAILY [facility] Last Admin: 02/18/19 10:33 Dose: 250 mg Acyclovir (Zovirax 5% Oint) 1 applic EXT QID [facility] Last Admin: 02/18/19 21:07 Dose: Not Given Artificial Tears (Artificial Tears) 2 drop OU Q4 PRN PRN Reason: Dry eyes Last Admin: 02/17/19 16:05 Dose: 2 drop Atorvastatin Calcium (Lipitor) 20 mg PO HS [facility] Last Admin: 02/18/19 21:04 Dose: 20 mg Baclofen (Lioresal) 10 mg PO DAILY [facility] Last Admin: 02/18/19 08:51 Dose: 10 mg Docusate Sodium (Colace) 100 mg PO Q12 [facility] Last Admin: 02/18/19 20:43 Dose: 100 mg Famotidine (Pepcid) 20 mg PO BID [facility] Last Admin: 02/18/19 17:12 Dose: 20 mg Guaifenesin (Mucinex La) 600 mg PO Q12 [facility] Last Admin: 02/18/19 20:46 Dose: 600 mg Guaifenesin/Dextromethorphan (Robitussin Dm) 10 ml PO Q6 PRN PRN Reason: Cough Last Admin: 02/18/19 14:32 Dose: 10 ml Heparin Sodium (Porcine) (Heparin) 5,000 units SC Q12 [facility]; Protocol Last Admin: 02/18/19 20:44 Dose: 5,000 units Hydroxychloroquine Sulfate (Plaquenil) 200 mg PO DAILY [facility]; Protocol Last Admin: 02/08/19 08:46 Dose: 200 mg Ciprofloxacin (Cipro 200mg/100ml D5w) 100 mls @ 100 mls/hr IVPB Q12 [facility]; Protocol Last Admin: 02/18/19 20:41 Dose: 100 mls/hr Meropenem 1 gm/ Sodium (Chloride) 100 mls @ 100 mls/hr IVPB Q8 [facility]; Protocol Last Admin: 02/18/19 17:08 Dose: 100 mls/hr Vancomycin HCl 1 gm/ Sodium (Chloride) 250 mls @ 166.667 mls/hr IVPB Q12 [facility]; Protocol Last Admin: 02/18/19 21:05 Dose: 166.667 mls/hr Insulin Human Regular (Humulin R) 0 units SC ACHS [facility]; Protocol Last Admin: 02/18/19 17:04 Dose: Not Given Ipratropium [place] (Atrovent) 0.5 mg IH RQID [facility] Last Admin: 02/18/19 19:59 Dose: 0.5 mg Lactulose (Enulose) 20 gm PO DAILY PRN PRN Reason: Constipation Levalbuterol HCl (Xopenex) 1.25 mg INH RQ4 PRN PRN Reason: Shortness of Breath Last Admin: 02/18/19 19:59 Dose: 1.25 mg Methylprednisolone (Medrol) 8 mg PO BID [facility] Last Admin: 02/18/19 17:09 Dose: 8 mg Montelukast Sodium (Singulair) 10 mg PO HS [facility] Last Admin: 02/18/19 21:05 Dose: 10 mg Polyethylene Glycol (Miralax) 17 gm PO HS [facility] Last Admin: 02/18/19 21:05 Dose: 17 gm Tamsulosin HCl (Flomax) 0.4 mg PO Q12 [facility] Last Admin: 02/18/19 20:44 Dose: 0.4 mg Temazepam (Restoril) 15 mg PO HS PRN PRN Reason: Insomnia Last Admin: 02/17/19 20:59 Dose: 15 mg Verapamil HCl (Calan Tab) 40 mg PO TID [facility] Last Admin: 02/18/19 17:10 Dose: 40 mg - Labs Labs: 02/18/19 04:40 02/18/19 04:40 PT 9.7 Seconds (9.8-13.1) L 02/03/19 19:35 INR 0.9 02/03/19 19:35 APTT 31.2 Seconds (25.6-37.1) 02/11/19 16:24 - Head Exam Head Exam: ATRAUMATIC - Eye Exam Eye Exam: Normal appearance - ENT Exam ENT Exam: Mucous Membranes Dry - Respiratory Exam Respiratory Exam: Decreased Breath Sounds - Cardiovascular Exam Cardiovascular Exam: +S1, +S2 - GI/Abdominal Exam GI & Abdominal Exam: Normal Bowel Sounds Assessment and Plan (1) Pancytopenia Assessment & Plan: exacerbated by acute illness, polypharmacy prior improvement in cytopenias when holding hydroxychloroquine; on hold WBC and H/H improved, plt low stable normal iron/b12/folate stores transfusion support PRN Status: Acute (2) Pancreatic mass Assessment & Plan: prior elevation in chromogranin A level; repeated ?neuroendocrine tumor not a good surgical candidate, will cont. to monitor Status: Acute
--- NOTE | 2019-02-18 21:19 | CP.PCM.PN ---
Subjective - Date & Time of Evaluation Date of Evaluation: 02/18/19 Time of Evaluation: 11:00 - Subjective Subjective: Seen on bipap Objective - Vital Signs/Intake and Output Vital Signs (last 24 hours): Temp Pulse Resp BP Pulse Ox 98.5 F 117 H 16 103/60 98 02/18/19 16:00 02/18/19 18:00 02/18/19 18:00 02/18/19 18:00 02/18/19 18:00 Intake and Output: 02/18/19 02/19/19 18:59 06:59 Intake Total 554 Output Total 1100 Balance -546 - Medications Medications: Current Medications Acetaminophen (Tylenol 325mg Tab) 650 mg PO Q6 PRN PRN Reason: Pain, Mild (1-3) Last Admin: 02/15/19 21:34 Dose: 650 mg Acetaminophen/Butalbital/Caffeine (Fioricet) 1 tab PO Q6 [facility] Last Admin: 02/18/19 21:03 Dose: 1 tab Acetazolamide (Diamox 250 Mg Tab) 250 mg PO DAILY [facility] Last Admin: 02/18/19 10:33 Dose: 250 mg Acyclovir (Zovirax 5% Oint) 1 applic EXT QID [facility] Last Admin: 02/18/19 21:07 Dose: Not Given Artificial Tears (Artificial Tears) 2 drop OU Q4 PRN PRN Reason: Dry eyes Last Admin: 02/17/19 16:05 Dose: 2 drop Atorvastatin Calcium (Lipitor) 20 mg PO HS [facility] Last Admin: 02/18/19 21:04 Dose: 20 mg Baclofen (Lioresal) 10 mg PO DAILY [facility] Last Admin: 02/18/19 08:51 Dose: 10 mg Docusate Sodium (Colace) 100 mg PO Q12 [facility] Last Admin: 02/18/19 20:43 Dose: 100 mg Famotidine (Pepcid) 20 mg PO BID [facility] Last Admin: 02/18/19 17:12 Dose: 20 mg Guaifenesin (Mucinex La) 600 mg PO Q12 [facility] Last Admin: 02/18/19 20:46 Dose: 600 mg Guaifenesin/Dextromethorphan (Robitussin Dm) 10 ml PO Q6 PRN PRN Reason: Cough Last Admin: 02/18/19 14:32 Dose: 10 ml Heparin Sodium (Porcine) (Heparin) 5,000 units SC Q12 [facility]; Protocol Last Admin: 02/18/19 20:44 Dose: 5,000 units Hydroxychloroquine Sulfate (Plaquenil) 200 mg PO DAILY [facility]; Protocol Last Admin: 02/08/19 08:46 Dose: 200 mg Ciprofloxacin (Cipro 200mg/100ml D5w) 100 mls @ 100 mls/hr IVPB Q12 [facility]; Protocol Last Admin: 02/18/19 20:41 Dose: 100 mls/hr Meropenem 1 gm/ Sodium (Chloride) 100 mls @ 100 mls/hr IVPB Q8 [facility]; Protocol Last Admin: 02/18/19 17:08 Dose: 100 mls/hr Vancomycin HCl 1 gm/ Sodium (Chloride) 250 mls @ 166.667 mls/hr IVPB Q12 [facility]; Protocol Last Admin: 02/18/19 21:05 Dose: 166.667 mls/hr Insulin Human Regular (Humulin R) 0 units SC ACHS [facility]; Protocol Last Admin: 02/18/19 21:12 Dose: Not Given Ipratropium [place] (Atrovent) 0.5 mg IH RQID [facility] Last Admin: 02/18/19 19:59 Dose: 0.5 mg Lactulose (Enulose) 20 gm PO DAILY PRN PRN Reason: Constipation Levalbuterol HCl (Xopenex) 1.25 mg INH RQ4 PRN PRN Reason: Shortness of Breath Last Admin: 02/18/19 19:59 Dose: 1.25 mg Methylprednisolone (Medrol) 8 mg PO BID [facility] Last Admin: 02/18/19 17:09 Dose: 8 mg Montelukast Sodium (Singulair) 10 mg PO HS [facility] Last Admin: 02/18/19 21:05 Dose: 10 mg Polyethylene Glycol (Miralax) 17 gm PO HS [facility] Last Admin: 02/18/19 21:05 Dose: 17 gm Tamsulosin HCl (Flomax) 0.4 mg PO Q12 [facility] Last Admin: 02/18/19 20:44 Dose: 0.4 mg Temazepam (Restoril) 15 mg PO HS PRN PRN Reason: Insomnia Last Admin: 02/18/19 21:15 Dose: 15 mg Verapamil HCl (Calan Tab) 40 mg PO TID [facility] Last Admin: 02/18/19 17:10 Dose: 40 mg - Labs Labs: 02/18/19 04:40 02/18/19 04:40 PT 9.7 Seconds (9.8-13.1) L 02/03/19 19:35 INR 0.9 02/03/19 19:35 APTT 31.2 Seconds (25.6-37.1) 02/11/19 16:24 - Head Exam Head Exam: ATRAUMATIC - Eye Exam Eye Exam: Normal appearance - ENT Exam ENT Exam: Mucous Membranes Dry - Respiratory Exam Respiratory Exam: Decreased Breath Sounds - Cardiovascular Exam Cardiovascular Exam: +S1, +S2 - GI/Abdominal Exam GI & Abdominal Exam: Normal Bowel Sounds Assessment and Plan (1) Pancytopenia Assessment & Plan: prior improvement in cytopenias when holding hydroxychloroquine; on hold WBC and H/H improved, plt low stable normal iron/b12/folate stores transfusion support PRN Status: Acute (2) Pancreatic mass Assessment & Plan: prior elevation in chromogranin A level; repeated ?neuroendocrine tumor not a good surgical candidate, will cont. to monitor Status: Acute
--- NOTE | 2019-02-18 21:23 | PN ---
DATE: 02/18/2019 DAILY PROGRESS NOTE SUBJECTIVE: The patient is seen today, 02/18/2019. He is still in respiratory distress with shortness of breath on mild exertion. PHYSICAL EXAMINATION: VITAL SIGNS: Heart rate is ranging from 110 to 130, regularly irregular. Blood pressure 99/55, respiratory rate 24. HEENT: Pupils are equal and reactive to light. Normal-appearing mucosa of the conjunctivae, oropharynx and nasal membrane mucosa. NECK: Supple. No JVD. No carotid bruit. No lymph nodes. No thyromegaly. CHEST AND LUNGS: Bilateral symmetrical expansion. Scattered rhonchi all over lung amos. CARDIOVASCULAR SYSTEM: PMI not localized. S1 and S2, irregularly irregular. ABDOMEN: Normoactive bowel sounds. No tenderness. No organomegaly. No masses. EXTREMITIES: No cyanosis. No clubbing. No edema. There is positive deformity of the rheumatoid arthritis. CENTRAL NERVOUS SYSTEM: Alert, awake, oriented x2 and moves all extremities equally. ASSESSMENT: Hypercapnic respiratory failure, exacerbation of chronic obstructive pulmonary disease, pneumonia, advanced rheumatoid arthritis, coronary artery disease, status coronary artery bypass graft. PLAN: Continue current IV antibiotics, bronchodilators, taper steroids. Discussed the patient's condition with supervisor contact and service clerks Dr. Barcenas. We will discuss with Cardiology regarding the irregularly irregular supraventricular tachycardia. Continue also BiPAP as needed. Michaela Wood MD
[2019-02-18] MEDS ORDERED: Sodium Chloride 0.9% 500 ML IV ONE (22:34)
[2019-02-19] MEDS: Meropenem 1 GM in Sodium Chloride 0.9% 100 ML IVPB SCH ×3 (01:19→16:23)
[2019-02-19] MEDS: Apap-Butalbital-Caffeine 325-50-40mg Tab PO SCH ×4 (04:27→21:44)
[2019-02-19 05:54] LABS: HEMOGLOBIN 9.6 g/dL (12.0-18.0); MEAN CELL VOLUME 103.3 fl (80.0-94.0); MEAN CORPUSCULAR HEMOGLOBIN 32.5 pg (27.0-31.0); MEAN CORPUSCULAR HGB CONC 31.4 g/dL (33.0-37.0); RBC 2.95 Mil/uL (4.40-5.90); WHITE BLOOD COUNT 3.7 K/uL (4.8-10.8)
[2019-02-19 06:28] LABS: ALB/GLOB RATIO 1.2 (1.0-2.1); ALBUMIN 2.7 g/dL (3.5-5.0); ALT/SGPT 50 U/L (21-72); AST/SGOT 30 U/L (17-59); BLOOD UREA NITROGEN 13 mg/dl (9-20); CALCIUM 8.4 mg/dL (8.4-10.2); GFR NON-AFRICAN AMERICAN > 60
[2019-02-19] MEDS: Insulin Regular 100 units/ml SC SCH ×4 (06:45→23:25)
[2019-02-19] MEDS: Levalbuterol 1.25 MG/3 ML Inhal Soln UD INH PRN (07:49)
[2019-02-19] MEDS: Ipratropium 0.02% Inhal Soln (0.5 mg/2.5 ml) UD IH SCH ×4 (07:49→19:27)
--- NOTE | 2019-02-19 09:03 | CP.PCM.PN ---
Subjective - Date & Time of Evaluation Date of Evaluation: 02/19/19 Time of Evaluation: 09:03 - Subjective Subjective: Seen on morning rounds in ICU. Presently on nasal canula @ 4 LPM. SpO2 ~88%. Heart rate is ~130BPM irregular. He is awake and eating his breakfast. His last CXR was 02/15. He has been afebrile, his WBC did improve to 4.7 yesterday. WBC is 3.7 today with platelets 54. CO2 has come down to 33 this morning. He is still unable to expectorate, but a sputum specimen was sent on the . His physical exam is about the same with trace dependant edema, but no cyanosis. Extremities are warm to touch, markedly abnormal fingers (DID/PIP) both hands. Neck is supple and trachea midline. Breath sounds are diminished bilaterally with medium rales in bot LLs. No audible wheezes or bronchial breath sounds. Breath sounds are not heard in the RLL region. Heart sounds are distant and very tachy. Little progress if any at this point. Cough assist device has not been successful in aiding expectoration. Has been started on antibiotic regimen that will include coverage for pseudomonas. He does not want tracheostomy and HFNC has not been tolerated in the past. Hopefully additional antibiotic coverage will add some further benefit. Options beyond this are becoming difficult to find. Maintain BiPAP for majority of the day with breaks as tolerated. Objective - Vital Signs/Intake and Output Vital Signs (last 24 hours): Temp Pulse Resp BP Pulse Ox 97.5 F L 115 H 22 115/61 92 L 02/19/19 08:00 02/19/19 08:00 02/19/19 08:00 02/19/19 08:00 02/19/19 08:00 Intake and Output: 02/18/19 02/19/19 23:59 11:59 Intake Total 1130 600 Output Total 1400 950 Balance -270 -350 - Medications Medications: Current Medications Acetaminophen (Tylenol 325mg Tab) 650 mg PO Q6 PRN PRN Reason: Pain, Mild (1-3) Last Admin: 02/15/19 21:34 Dose: 650 mg Acetaminophen/Butalbital/Caffeine (Fioricet) 1 tab PO Q6 [facility] Last Admin: 02/19/19 04:27 Dose: Not Given Acetazolamide (Diamox 250 Mg Tab) 250 mg PO DAILY [facility] Last Admin: 02/18/19 10:33 Dose: 250 mg Acyclovir (Zovirax 5% Oint) 1 applic EXT QID [facility] Last Admin: 02/18/19 21:07 Dose: Not Given Artificial Tears (Artificial Tears) 2 drop OU Q4 PRN PRN Reason: Dry eyes Last Admin: 02/17/19 16:05 Dose: 2 drop Atorvastatin Calcium (Lipitor) 20 mg PO HS [facility] Last Admin: 02/18/19 21:04 Dose: 20 mg Baclofen (Lioresal) 10 mg PO DAILY [facility] Last Admin: 02/18/19 08:51 Dose: 10 mg Docusate Sodium (Colace) 100 mg PO Q12 [facility] Last Admin: 02/18/19 20:43 Dose: 100 mg Famotidine (Pepcid) 20 mg PO BID [facility] Last Admin: 02/18/19 17:12 Dose: 20 mg Guaifenesin (Mucinex La) 600 mg PO Q12 [facility] Last Admin: 02/18/19 20:46 Dose: 600 mg Guaifenesin/Dextromethorphan (Robitussin Dm) 10 ml PO Q6 PRN PRN Reason: Cough Last Admin: 02/18/19 14:32 Dose: 10 ml Heparin Sodium (Porcine) (Heparin) 5,000 units SC Q12 [facility]; Protocol Last Admin: 02/18/19 20:44 Dose: 5,000 units Hydroxychloroquine Sulfate (Plaquenil) 200 mg PO DAILY [facility]; Protocol Last Admin: 02/08/19 08:46 Dose: 200 mg Ciprofloxacin (Cipro 200mg/100ml D5w) 100 mls @ 100 mls/hr IVPB Q12 [facility]; Protocol Last Admin: 02/18/19 20:41 Dose: 100 mls/hr Meropenem 1 gm/ Sodium (Chloride) 100 mls @ 100 mls/hr IVPB Q8 [facility]; Protocol Last Admin: 02/19/19 01:19 Dose: 100 mls/hr Vancomycin HCl 1 gm/ Sodium (Chloride) 250 mls @ 166.667 mls/hr IVPB Q12 [facility]; Protocol Last Admin: 02/18/19 21:05 Dose: 166.667 mls/hr Insulin Human Regular (Humulin R) 0 units SC ACHS [facility]; Protocol Last Admin: 02/19/19 06:45 Dose: Not Given Ipratropium [place] (Atrovent) 0.5 mg IH RQID [facility] Last Admin: 02/19/19 07:49 Dose: 0.5 mg Lactulose (Enulose) 20 gm PO DAILY PRN PRN Reason: Constipation Levalbuterol HCl (Xopenex) 1.25 mg INH RQ4 PRN PRN Reason: Shortness of Breath Last Admin: 02/19/19 07:49 Dose: 1.25 mg Methylprednisolone (Medrol) 8 mg PO BID [facility] Last Admin: 02/18/19 17:09 Dose: 8 mg Montelukast Sodium (Singulair) 10 mg PO HS [facility] Last Admin: 02/18/19 21:05 Dose: 10 mg Polyethylene Glycol (Miralax) 17 gm PO HS [facility] Last Admin: 02/18/19 21:05 Dose: 17 gm Tamsulosin HCl (Flomax) 0.4 mg PO Q12 [facility] Last Admin: 02/18/19 20:44 Dose: 0.4 mg Temazepam (Restoril) 15 mg PO HS PRN PRN Reason: Insomnia Last Admin: 02/18/19 21:15 Dose: 15 mg Verapamil HCl (Calan Tab) 40 mg PO TID [facility] Last Admin: 02/18/19 17:10 Dose: 40 mg - Labs Labs: 02/19/19 05:31 02/19/19 05:31 PT 9.7 Seconds (9.8-13.1) L 02/03/19 19:35 INR 0.9 02/03/19 19:35 APTT 31.2 Seconds (25.6-37.1) 02/11/19 16:24 Assessment and Plan (1) Pneumonia Status: Acute (2) Acute on chronic respiratory failure with hypoxemia Status: Chronic (3) Hypercapnic respiratory failure Status: Chronic (4) Mucus plugging of bronchi Status: Suspected
[2019-02-19] MEDS: guaiFENesin 600 mg ER Tab PO SCH (09:32)
--- NOTE | 2019-02-19 09:45 | CP.PCM.PN ---
Subjective - Date & Time of Evaluation Date of Evaluation: 02/19/19 Time of Evaluation: 09:45 - Subjective Subjective: Id note- Patient seen and examined in ICU today. has BIPAP on this morning. denies any fever or chills. Objective - Vital Signs/Intake and Output Vital Signs (last 24 hours): Temp Pulse Resp BP Pulse Ox 97.5 F L 152 H 22 115/61 92 L 02/19/19 08:00 02/19/19 09:33 02/19/19 08:00 02/19/19 09:33 02/19/19 08:00 Intake and Output: 02/19/19 02/19/19 06:59 18:59 Intake Total 1430 Output Total 1250 200 Balance 180 -200 - Medications Medications: Current Medications Acetaminophen (Tylenol 325mg Tab) 650 mg PO Q6 PRN PRN Reason: Pain, Mild (1-3) Last Admin: 02/15/19 21:34 Dose: 650 mg Acetaminophen/Butalbital/Caffeine (Fioricet) 1 tab PO Q6 [facility] Last Admin: 02/19/19 09:32 Dose: 1 tab Acetazolamide (Diamox 250 Mg Tab) 250 mg PO DAILY [facility] Last Admin: 02/19/19 09:38 Dose: 250 mg Acyclovir (Zovirax 5% Oint) 1 applic EXT QID [facility] Last Admin: 02/18/19 21:07 Dose: Not Given Artificial Tears (Artificial Tears) 2 drop OU Q4 PRN PRN Reason: Dry eyes Last Admin: 02/17/19 16:05 Dose: 2 drop Atorvastatin Calcium (Lipitor) 20 mg PO HS [facility] Last Admin: 02/18/19 21:04 Dose: 20 mg Baclofen (Lioresal) 10 mg PO DAILY [facility] Last Admin: 02/19/19 09:39 Dose: 10 mg Docusate Sodium (Colace) 100 mg PO Q12 [facility] Last Admin: 02/19/19 09:38 Dose: Not Given Famotidine (Pepcid) 20 mg PO BID [facility] Last Admin: 02/19/19 09:42 Dose: 20 mg Guaifenesin (Mucinex La) 600 mg PO Q12 [facility] Last Admin: 02/19/19 09:32 Dose: 600 mg Guaifenesin/Dextromethorphan (Robitussin Dm) 10 ml PO Q6 PRN PRN Reason: Cough Last Admin: 02/18/19 14:32 Dose: 10 ml Heparin Sodium (Porcine) (Heparin) 5,000 units SC Q12 [facility]; Protocol Last Admin: 02/19/19 09:29 Dose: 5,000 units Hydroxychloroquine Sulfate (Plaquenil) 200 mg PO DAILY [facility]; Protocol Last Admin: 02/08/19 08:46 Dose: 200 mg Ciprofloxacin (Cipro 200mg/100ml D5w) 100 mls @ 100 mls/hr IVPB Q12 [facility]; Protocol Last Admin: 02/18/19 20:41 Dose: 100 mls/hr Meropenem 1 gm/ Sodium (Chloride) 100 mls @ 100 mls/hr IVPB Q8 [facility]; Protocol Last Admin: 02/19/19 09:27 Dose: 100 mls/hr Vancomycin HCl 1 gm/ Sodium (Chloride) 250 mls @ 166.667 mls/hr IVPB Q12 [facility]; Protocol Last Admin: 02/18/19 21:05 Dose: 166.667 mls/hr Insulin Human Regular (Humulin R) 0 units SC ACHS [facility]; Protocol Last Admin: 02/19/19 06:45 Dose: Not Given Ipratropium [place] (Atrovent) 0.5 mg IH RQID [facility] Last Admin: 02/19/19 07:49 Dose: 0.5 mg Lactulose (Enulose) 20 gm PO DAILY PRN PRN Reason: Constipation Levalbuterol HCl (Xopenex) 1.25 mg INH RQ4 PRN PRN Reason: Shortness of Breath Last Admin: 02/19/19 07:49 Dose: 1.25 mg Methylprednisolone (Medrol) 8 mg PO BID [facility] Last Admin: 02/19/19 09:38 Dose: 8 mg Montelukast Sodium (Singulair) 10 mg PO HS [facility] Last Admin: 02/18/19 21:05 Dose: 10 mg Polyethylene Glycol (Miralax) 17 gm PO HS [facility] Last Admin: 02/18/19 21:05 Dose: 17 gm Tamsulosin HCl (Flomax) 0.4 mg PO Q12 [facility] Last Admin: 02/19/19 09:39 Dose: 0.4 mg Temazepam (Restoril) 15 mg PO HS PRN PRN Reason: Insomnia Last Admin: 02/18/19 21:15 Dose: 15 mg Verapamil HCl (Calan Tab) 40 mg PO TID [facility] Last Admin: 02/19/19 09:33 Dose: 40 mg - Labs Labs: - Additional Findings Additional findings: - Constitutional Appears: No Acute Distress, Chronically Ill - Head Exam Head Exam: ATRAUMATIC - Eye Exam Eye Exam: EOMI, PERRL - Neck Exam Neck exam: Positive for: Full Rom - Respiratory Exam Respiratory Exam: NORMAL BREATHING PATTERN Additional comments: decreased breath sounds bibasilar crackles heard at right base no wheezing - Cardiovascular Exam Additional comments: Irregularly Irregular - GI/Abdominal Exam GI & Abdominal Exam: Normal Bowel Sounds, Soft Additional comments: NT, ND - Extremities Exam Additional comments: no edema B/L LE - Neurological Exam Neurological exam: Alert, Oriented x 3 Laboratory Results - last 72 hr 02/16/19 02/16/19 02/17/19 16:00 21:27 05:14 WBC RBC Hgb Hct MCV MCH MCHC RDW Plt Count MPV Neut % (Auto) Lymph % (Auto) [place] % (Auto) Eos % (Auto) Baso % (Auto) Neut # (Auto) Lymph # (Auto) [place] # (Auto) Eos # (Auto) Baso # (Auto) Sodium Potassium Chloride Carbon Dioxide Anion Gap BUN Creatinine Est GFR ( Amer) Est GFR (Non-Af Amer) POC Glucose (mg/dL) 76 79 93 Random Glucose Calcium Total Bilirubin AST ALT Alkaline Phosphatase Total Protein Albumin Globulin Albumin/Globulin Ratio Ur L.pneumophila Ag 02/17/19 02/17/19 02/17/19 06:21 06:21 09:19 WBC 3.9 L RBC 3.26 L Hgb 10.7 L Hct 33.4 L MCV 102.4 H MCH 32.7 H MCHC 31.9 L RDW 19.1 H Plt Count 63 L MPV 11.4 Neut % (Auto) 47.6 L Lymph % (Auto) 36.3 [place] % (Auto) 15.4 H Eos % (Auto) 0.3 Baso % (Auto) 0.4 Neut # (Auto) 1.9 Lymph # (Auto) 1.4 [place] # (Auto) 0.6 Eos # (Auto) 0.0 Baso # (Auto) 0.0 Sodium 134 Potassium 5.4 H Chloride 97 L Carbon Dioxide 34 H Anion Gap 8 L BUN 22 H Creatinine 0.4 L Est GFR ( Amer) > 60 Est GFR (Non-Af Amer) > 60 POC Glucose (mg/dL) Random Glucose 95 Calcium 8.7 Total Bilirubin AST ALT Alkaline Phosphatase Total Protein Albumin Globulin Albumin/Globulin Ratio Ur L.pneumophila Ag Negative 02/17/19 02/17/19 02/17/19 11:25 17:31 21:13 WBC RBC Hgb Hct MCV MCH MCHC RDW Plt Count MPV Neut % (Auto) Lymph % (Auto) [place] % (Auto) Eos % (Auto) Baso % (Auto) Neut # (Auto) Lymph # (Auto) [place] # (Auto) Eos # (Auto) Baso # (Auto) Sodium Potassium Chloride Carbon Dioxide Anion Gap BUN Creatinine Est GFR ( Amer) Est GFR (Non-Af Amer) POC Glucose (mg/dL) 126 H 143 H 153 H Random Glucose Calcium Total Bilirubin AST ALT Alkaline Phosphatase Total Protein Albumin Globulin Albumin/Globulin Ratio Ur L.pneumophila Ag 02/18/19 02/18/19 02/18/19 04:40 04:40 06:07 WBC 4.7 L RBC 3.14 L Hgb 10.2 L Hct 32.5 L MCV 103.4 H MCH 32.5 H MCHC 31.5 L RDW 19.2 H Plt Count 67 L MPV Neut % (Auto) Lymph % (Auto) [place] % (Auto) Eos % (Auto) Baso % (Auto) Neut # (Auto) Lymph # (Auto) [place] # (Auto) Eos # (Auto) Baso # (Auto) Sodium 139 Potassium 4.4 Chloride 95 L Carbon Dioxide 40 H* Anion Gap 8 L BUN 18 Creatinine 0.5 L Est GFR ( Amer) > 60 Est GFR (Non-Af Amer) > 60 POC Glucose (mg/dL) 78 Random Glucose 76 Calcium 8.7 Total Bilirubin AST ALT Alkaline Phosphatase Total Protein Albumin Globulin Albumin/Globulin Ratio Ur L.pneumophila Ag 02/18/19 02/18/19 02/18/19 11:15 16:33 21:11 WBC RBC Hgb Hct MCV MCH MCHC RDW Plt Count MPV Neut % (Auto) Lymph % (Auto) [place] % (Auto) Eos % (Auto) Baso % (Auto) Neut # (Auto) Lymph # (Auto) [place] # (Auto) Eos # (Auto) Baso # (Auto) Sodium Potassium Chloride Carbon Dioxide Anion Gap BUN Creatinine Est GFR ( Amer) Est GFR (Non-Af Amer) POC Glucose (mg/dL) 131 H 149 H 115 H Random Glucose Calcium Total Bilirubin AST ALT Alkaline Phosphatase Total Protein Albumin Globulin Albumin/Globulin Ratio Ur L.pneumophila Ag 02/19/19 02/19/19 02/19/19 05:31 05:31 06:04 WBC 3.7 L RBC 2.95 L Hgb 9.6 L Hct 30.5 L MCV 103.3 H MCH 32.5 H MCHC 31.4 L RDW 19.0 H Plt Count 54 L MPV Neut % (Auto) Lymph % (Auto) [place] % (Auto) Eos % (Auto) Baso % (Auto) Neut # (Auto) Lymph # (Auto) [place] # (Auto) Eos # (Auto) Baso # (Auto) Sodium 136 Potassium 4.1 Chloride 101 Carbon Dioxide 33 H Anion Gap 6 L BUN 13 Creatinine 0.5 L Est GFR ( Amer) > 60 Est GFR (Non-Af Amer) > 60 POC Glucose (mg/dL) 60 L Random Glucose 71 L Calcium 8.4 Total Bilirubin 0.7 AST 30 ALT 50 Alkaline Phosphatase 48 Total Protein 4.8 L Albumin 2.7 L Globulin 2.1 L Albumin/Globulin Ratio 1.2 Ur L.pneumophila Ag 02/19/19 02/19/19 06:42 11:31 WBC RBC Hgb Hct MCV MCH MCHC RDW Plt Count MPV Neut % (Auto) Lymph % (Auto) [place] % (Auto) Eos % (Auto) Baso % (Auto) Neut # (Auto) Lymph # (Auto) [place] # (Auto) Eos # (Auto) Baso # (Auto) Sodium Potassium Chloride Carbon Dioxide Anion Gap BUN Creatinine Est GFR ( Amer) Est GFR (Non-Af Amer) POC Glucose (mg/dL) 100 120 H Random Glucose Calcium Total Bilirubin AST ALT Alkaline Phosphatase Total Protein Albumin Globulin Albumin/Globulin Ratio Ur L.pneumophila Ag Microbiology 02/17/19 01:05 Sputum Gram Stain - Final 02/15/19 10:20 Other: Please Indicate Mycobacterial Culture - Preliminary 02/15/19 10:20 Bronchial Washings Fungal Culture - Preliminary 02/11/19 07:09 Naris MRSA Culture (Admit) - Final MRSA NOT DETECTED 02/09/19 19:00 Naris MRSA Culture (Admit) - Final MRSA NOT DETECTED 02/03/19 19:35 Blood-Venous Blood Culture - Final NO GROWTH AFTER 5 DAYS 02/03/19 19:35 Blood-Venous Gram Stain - Final TEST NOT PERFORMED 02/03/19 19:35 Blood-Venous Blood Culture - Final NO GROWTH AFTER 5 DAYS 02/03/19 19:35 Blood-Venous Gram Stain - Final TEST NOT PERFORMED 02/03/19 08:00 Sputum Gram Stain - Final 02/03/19 08:00 Sputum Sputum Culture - Final NORMAL ORAL KRISS 02/04/19 06:03 [facility]aris MRSA Culture (Admit) - Final MRSA NOT DETECTED 02/03/19 20:50 Urine,Clean Catch Urine Culture - Final No Growth (<1,000 CFU/ML) Assessment and Plan (1) COPD exacerbation Status: Acute (2) HCAP (healthcare-associated pneumonia) Status: Acute (3) Paroxysmal atrial fibrillation with rapid ventricular response Status: Acute (4) CHF (congestive heart failure) Status: Acute (5) COPD (chronic obstructive pulmonary disease) Status: Chronic (6) Acute respiratory failure with hypoxia and hypercarbia Status: Acute - Assessment and Plan (Free Text) Assessment: A/P- 73 year old male with h/o RA on streoids and Plaquenil, COPD, admitted with copd exacerbation, hypercapneic resp faillure and zoster on abdomen . zoster has resolved , had completed course of acyclovir as per Primary doc. s/p bronch few days ago whoch as per medicaid eligibility specialist had shown thick purulent fluid . afebrile blood cx- neg x 3 sputum cx- negative 02/03/2019-\BAl fungal and AFB smear- neg so far. BAL cytology report- negative for malignancy, mixed bacteria and some fungal possible emile ( as per report). Plan- advise to continue with borad spectrum antibiotics including meropenem, cipro and vanco day 33. Keep vanco trough <15. in light of possible emile in BAL washing advise to start antifungal as well specailly since pt. has been on steroids for his RA and is by definitions immunocompromised. All labs and imaging and chart notes reviewed. critical care time spent 45 minutes.
[2019-02-19] MEDS: Ciprofloxacin 200mg/100ml D5W 100 ML IVPB SCH ×2 (09:48→21:41)
[2019-02-19] MEDS ORDERED: Metoprolol 1 mg/ml Inj IVP ONE (10:00)
[2019-02-19] MEDS: Acyclovir 5% OINT 15 APPLIC/15 GM EXT SCH ×4 (10:22→21:48)
--- NOTE | 2019-02-19 12:47 | CP.PCM.PN ---
<Melvi Garrison - Last Filed: 02/19/19 17:55> Subjective - Date & Time of Evaluation Date of Evaluation: 02/19/19 Time of Evaluation: 09:16 - Subjective Subjective: Patient was seen and examined in the ICU on 4 L of NC with spo2 of 85-86%. Patient was tachycardic in the 150's, speaking in complete sentences. He complained of cough, but denied any fever, chills, chest pain or shortness of breath. -Patient was given a dose of metoprolol. HR decreased to 80's. Objective - Vital Signs/Intake and Output Vital Signs (last 24 hours): Temp Pulse Resp BP Pulse Ox 97.7 F 82 27 H 88/48 L 98 02/19/19 12:00 02/19/19 12:00 02/19/19 12:00 02/19/19 12:00 02/19/19 12:00 Intake and Output: 02/19/19 02/19/19 06:59 18:59 Intake Total 1430 100 Output Total 1250 300 Balance 180 -200 - Medications Medications: Current Medications Acetaminophen (Tylenol 325mg Tab) 650 mg PO Q6 PRN PRN Reason: Pain, Mild (1-3) Last Admin: 02/15/19 21:34 Dose: 650 mg Acetaminophen/Butalbital/Caffeine (Fioricet) 1 tab PO Q6 [facility] Last Admin: 02/19/19 09:32 Dose: 1 tab Acetazolamide (Diamox 250 Mg Tab) 250 mg PO DAILY [facility] Last Admin: 02/19/19 09:38 Dose: 250 mg Acyclovir (Zovirax 5% Oint) 1 applic EXT QID [facility] Last Admin: 02/19/19 10:22 Dose: 1 applic Artificial Tears (Artificial Tears) 2 drop OU Q4 PRN PRN Reason: Dry eyes Last Admin: 02/17/19 16:05 Dose: 2 drop Atorvastatin Calcium (Lipitor) 20 mg PO HS [facility] Last Admin: 02/18/19 21:04 Dose: 20 mg Baclofen (Lioresal) 10 mg PO DAILY [facility] Last Admin: 02/19/19 09:39 Dose: 10 mg Docusate Sodium (Colace) 100 mg PO Q12 [facility] Last Admin: 02/19/19 09:38 Dose: Not Given Famotidine (Pepcid) 20 mg PO BID [facility] Last Admin: 02/19/19 09:42 Dose: 20 mg Guaifenesin/Dextromethorphan (Robitussin Dm) 10 ml PO Q6 PRN PRN Reason: Cough Last Admin: 02/18/19 14:32 Dose: 10 ml Heparin Sodium (Porcine) (Heparin) 5,000 units SC Q12 [facility]; Protocol Last Admin: 02/19/19 09:29 Dose: 5,000 units Hydroxychloroquine Sulfate (Plaquenil) 200 mg PO DAILY [facility]; Protocol Last Admin: 02/08/19 08:46 Dose: 200 mg Ciprofloxacin (Cipro 200mg/100ml D5w) 100 mls @ 100 mls/hr IVPB Q12 [facility]; Protocol Last Admin: 02/19/19 09:48 Dose: 100 mls/hr Meropenem 1 gm/ Sodium (Chloride) 100 mls @ 100 mls/hr IVPB Q8 [facility]; Protocol Last Admin: 02/19/19 09:27 Dose: 100 mls/hr Vancomycin HCl 1 gm/ Sodium (Chloride) 250 mls @ 166.667 mls/hr IVPB Q12 [facility]; Protocol Last Admin: 02/19/19 10:23 Dose: 166.667 mls/hr Insulin Human Regular (Humulin R) 0 units SC ACHS [facility]; Protocol Last Admin: 02/19/19 06:45 Dose: Not Given Ipratropium [place] (Atrovent) 0.5 mg IH RQID [facility] Last Admin: 02/19/19 11:07 Dose: 0.5 mg Lactulose (Enulose) 20 gm PO DAILY PRN PRN Reason: Constipation Levalbuterol HCl (Xopenex) 1.25 mg INH RQ4 PRN PRN Reason: Shortness of Breath Last Admin: 02/19/19 07:49 Dose: 1.25 mg Methylprednisolone (Medrol) 8 mg PO BID [facility] Last Admin: 02/19/19 09:38 Dose: 8 mg Montelukast Sodium (Singulair) 10 mg PO HS [facility] Last Admin: 02/18/19 21:05 Dose: 10 mg Polyethylene Glycol (Miralax) 17 gm PO HS [facility] Last Admin: 02/18/19 21:05 Dose: 17 gm Tamsulosin HCl (Flomax) 0.4 mg PO Q12 [facility] Last Admin: 02/19/19 09:39 Dose: 0.4 mg Temazepam (Restoril) 15 mg PO HS PRN PRN Reason: Insomnia Last Admin: 02/18/19 21:15 Dose: 15 mg Verapamil HCl (Calan Tab) 80 mg PO Q8H [facility] - Labs Labs: 02/19/19 05:31 02/19/19 05:31 PT 9.7 Seconds (9.8-13.1) L 02/03/19 19:35 INR 0.9 02/03/19 19:35 APTT 31.2 Seconds (25.6-37.1) 02/11/19 16:24 - Head Exam Head Exam: ATRAUMATIC - Eye Exam Pupil Exam: PERRL - ENT Exam ENT Exam: Mucous Membranes Dry - Respiratory Exam Respiratory Exam: Rhonchi - Cardiovascular Exam Cardiovascular Exam: Irregular Rhythm - GI/Abdominal Exam GI & Abdominal Exam: Soft, Normal Bowel Sounds. absent: Guarding, Rigid, Tenderness - Extremities Exam Extremities Exam: absent: Calf Tenderness - Neurological Exam Neurological Exam: Alert, Awake, Oriented x3 - Psychiatric Exam Psychiatric exam: Normal Mood - Skin Skin Exam: Dry Assessment and Plan - Assessment and Plan (Free Text) Assessment: 73 year old male with h/o CFH, paroxysmal a fib, hx of zoster on abdomen (resolved), admitted for [employer] exacerbation. 1. COPD exacerbation -Continue with current management -Bipap 2. HCAP -Vanco, meropenem, cipro day 33 -Keep vanco trough <15 3. Paroxysmal atrial fib with RVR Verapamil 80mg IV Q8 4. CHF -Continue with current management 5. Acute respiratory with hypoxia & hypercarbia -Continue with current management <Ramandeep Whaley - Last Filed: 02/20/19 07:25> Objective - Vital Signs/Intake and Output Vital Signs (last 24 hours): Temp Pulse Resp BP Pulse Ox 98.7 F 96 H 19 111/64 100 02/20/19 00:00 02/20/19 06:00 02/20/19 06:00 02/20/19 06:00 02/20/19 06:00 Intake and Output: 02/20/19 02/20/19 06:59 18:59 Intake Total 350 Output Total 1000 400 Balance -650 -400 - Medications Medications: Current Medications Acetaminophen (Tylenol 325mg Tab) 650 mg PO Q6 PRN PRN Reason: Pain, Mild (1-3) Last Admin: 02/19/19 16:19 Dose: 650 mg Acetaminophen/Butalbital/Caffeine (Fioricet) 1 tab PO Q6 [facility] Last Admin: 02/20/19 03:47 Dose: 1 tab Acetazolamide (Diamox 250 Mg Tab) 250 mg PO DAILY [facility] Last Admin: 02/19/19 09:38 Dose: 250 mg Acyclovir (Zovirax 5% Oint) 1 applic EXT QID [facility] Last Admin: 02/19/19 21:48 Dose: Not Given Artificial Tears (Artificial Tears) 2 drop OU Q4 PRN PRN Reason: Dry eyes Last Admin: 02/19/19 22:17 Dose: 2 drop Atorvastatin Calcium (Lipitor) 20 mg PO HS [facility] Last Admin: 02/19/19 21:47 Dose: 20 mg Baclofen (Lioresal) 10 mg PO DAILY [facility] Last Admin: 02/19/19 09:39 Dose: 10 mg Docusate Sodium (Colace) 100 mg PO Q12 [facility] Last Admin: 02/19/19 21:43 Dose: 100 mg Famotidine (Pepcid) 20 mg PO BID [facility] Last Admin: 02/19/19 18:19 Dose: 20 mg Guaifenesin/Dextromethorphan (Robitussin Dm) 10 ml PO Q6 PRN PRN Reason: Cough Last Admin: 02/18/19 14:32 Dose: 10 ml Heparin Sodium (Porcine) (Heparin) 5,000 units SC Q12 [facility]; Protocol Last Admin: 02/19/19 21:46 Dose: 5,000 units Hydroxychloroquine Sulfate (Plaquenil) 200 mg PO DAILY [facility]; Protocol Last Admin: 02/08/19 08:46 Dose: 200 mg Ciprofloxacin (Cipro 200mg/100ml D5w) 100 mls @ 100 mls/hr IVPB Q12 [facility]; Protocol Last Admin: 02/19/19 21:41 Dose: 100 mls/hr Meropenem 1 gm/ Sodium (Chloride) 100 mls @ 100 mls/hr IVPB Q8 [facility]; Protocol Last Admin: 02/20/19 01:30 Dose: 100 mls/hr Vancomycin HCl 1 gm/ Sodium (Chloride) 250 mls @ 166.667 mls/hr IVPB Q12 [facility]; Protocol Last Admin: 02/19/19 21:41 Dose: 166.667 mls/hr Fluconazole (Diflucan Iv 200 Mg/100 Ml Ns) 100 mls @ 100 mls/hr IVPB DAILY [facility]; Protocol Last Admin: 02/19/19 18:20 Dose: 100 mls/hr Insulin Human Regular (Humulin R) 0 units SC ACHS [facility]; Protocol Last Admin: 02/20/19 07:18 Dose: Not Given Ipratropium [place] (Atrovent) 0.5 mg IH RQID [facility] Last Admin: 02/19/19 19:27 Dose: 0.5 mg Lactulose (Enulose) 20 gm PO DAILY PRN PRN Reason: Constipation Levalbuterol HCl (Xopenex) 1.25 mg INH RQ4 PRN PRN Reason: Shortness of Breath Last Admin: 02/19/19 07:49 Dose: 1.25 mg Methylprednisolone (Medrol) 8 mg PO BID [facility] Last Admin: 02/19/19 16:22 Dose: 8 mg Montelukast Sodium (Singulair) 10 mg PO HS [facility] Last Admin: 02/19/19 21:48 Dose: 10 mg Polyethylene Glycol (Miralax) 17 gm PO HS [facility] Last Admin: 02/19/19 21:47 Dose: Not Given Tamsulosin HCl (Flomax) 0.4 mg PO Q12 [facility] Last Admin: 02/19/19 21:45 Dose: 0.4 mg Temazepam (Restoril) 15 mg PO HS PRN PRN Reason: Insomnia Last Admin: 02/19/19 21:51 Dose: 15 mg Verapamil HCl (Calan Tab) 80 mg PO Q8H [facility] Last Admin: 02/20/19 03:47 Dose: Not Given - Labs Labs: 02/20/19 04:25 02/20/19 04:25 PT 9.7 Seconds (9.8-13.1) L 02/03/19 19:35 INR 0.9 02/03/19 19:35 APTT 31.2 Seconds (25.6-37.1) 02/11/19 16:24 Attending/Attestation - Attestation I have personally seen and examined this patient.: Yes I have fully participated in the care of the patient.: Yes I have reviewed all pertinent clinical information, including history, physical exam and plan: Yes Notes (Text): 02/20/19 07:24 3-year-old male patient of Dr. Wood. Patient was tachycardic yesterday verapamil increased to 80 mg every 8 hours. Agree with findings and plan as above.
[2019-02-19] MEDS: Fluconazole IV 200mg/100 ml NS 100 ML IVPB SCH (18:20)
[2019-02-19] MEDS: POLYETHYLENE GLYCOL 3350 17 GM/Dose PACKET PO SCH (21:47)
[2019-02-19] MEDS: Artificial Tears Opht Soln OU PRN (22:17)
--- NOTE | 2019-02-19 22:28 | PN ---
DATE: 02/19/2019 CRITICAL CARE PROGRESS NOTE LOCATION: The patient is in ICU, bed 422. TIME SPENT: 35 minutes. The patient is seen, evaluated at the bedside. Past medical, surgical, family, social history reviewed. SUBJECTIVE: A 73-year-old male with history significant for chronic obstructive pulmonary disease, pneumonia, rheumatoid arthritis, paroxysmal atrial fibrillation with multiple admissions in the past for exacerbation of chronic obstructive pulmonary disease. Admitted with increasing shortness of breath and hypotension, noted to have respiratory failure, bilateral lower lobe pneumonia and varicella zoster lesion on the abdomen. Status post completed course acyclovir, status post bronchoscopy with bronchial lavage and noted to have purulent bronchial secretions, seen by ID consult, on IV antibiotic, overnight on BiPAP, less short of breath. This morning, alert and awake, off BiPAP, tolerated breakfast, but still noted to be in [id number] respiratory distress. PHYSICAL EXAMINATION: VITAL SIGNS: Temperature 97.5, heart rate 115-152, blood pressure of 108/69, respiratory rate 22. Intake 1984, output at 2350, negative balance 366. HEAD, EYES, EARS, NOSE AND THROAT: Pupils are reactive. Conjunctivae pink. Sclerae are white. NECK: Supple. Trachea is central. CHEST: Bilateral breath sounds, diminished in intensity, prolonged expiration. HEART: Rhythm irregular. No audible murmur. ABDOMEN: Bowel sounds present, soft. Liver and spleen not palpable. Bladder not distended. EXTREMITIES: Trace edema, DP palpable. NEUROLOGIC: Alert, awake. Follows commands appropriate. No motor deficit. No cranial nerve deficit. CURRENT MEDICATIONS: Include Tylenol 650 mg every 6 hours p.r.n., Fioricet 1 tablet every 6 hours, Diamox 250 mg IV daily, artificial tears 2 drop every 4 hours, Lipitor 20 mg p.o. h.s., baclofen 10 mg p.o. daily, ciprofloxacin 200 mg IV every 12 hours, Colace 100 mg p.o. every 12 hours, Pepcid 20 mg p.o. b.i.d., guaifenesin 10 mL p.o. every 6 hours p.r.n., heparin 5000 units subcu every 12 hours, Plaquenil 200 mg p.o. daily on hold due to thrombocytopenia, Accu-Chek with regular insulin coverage, ipratropium bromide 0.5 mg four times a day, lactulose 20 mg p.o. daily, Xopenex 1.25 mg via nebulizer every 4 hours p.r.n., meropenem 1 g IV every 8 hours, Solu-Medrol 8 mg p.o. b.i.d., Singulair 10 mg p.o. at bedtime, Flomax 0.4 mg p.o. every 12 hours, Restoril 50 mg p.o. at bedtime p.r.n., verapamil 80 mg p.o. every 8 hours, vancomycin 1 g IV every 12 hours. IMPRESSION: 1. Neurologic: Alert, awake, oriented to name, place and time. 2. Pulmonary: Hypercapnic hypoxic respiratory failure, on BiPAP, status post bronchoscopy noted purulent secretions. Continue DuoNeb, Mucomyst and chest physical therapy as tolerated. 3. Cardiac: Paroxysmal atrial fibrillation with rapid ventricular response, on verapamil, may use beta klever as needed to control rate. 4. Infectious disease: Hypercapnic hypoxic respiratory failure, possible tracheobronchitis, right lower lobe pneumonia, on vancomycin, meropenem and ciprofloxacin. 5. Renal: Renal function within normal limits. 6. Hematology: Pancytopenia secondary to acute infection and/or polypharmacy including hydroxychloroquine; thrombocytopenia, stable. 7. Endocrinology: Hyperglycemia secondary to steroid, on Accu-Chek with regular insulin coverage. Freeman Roberts MD
[2019-02-20] MEDS: Meropenem 1 GM in Sodium Chloride 0.9% 100 ML IVPB SCH ×4 (01:30→21:39)
[2019-02-20] MEDS: Apap-Butalbital-Caffeine 325-50-40mg Tab PO SCH (03:47)
[2019-02-20 04:56] LABS: HEMOGLOBIN 9.7 g/dL (12.0-18.0); MEAN CELL VOLUME 104.3 fl (80.0-94.0); MEAN CORPUSCULAR HEMOGLOBIN 33.1 pg (27.0-31.0); MEAN CORPUSCULAR HGB CONC 31.8 g/dL (33.0-37.0); RBC 2.92 Mil/uL (4.40-5.90); RED CELL DISTRIBUTION WIDTH 19.7 % (11.5-14.5); WHITE BLOOD COUNT 3.2 K/uL (4.8-10.8)
[2019-02-20 05:05] LABS: ALB/GLOB RATIO 1.3 (1.0-2.1); ALT/SGPT 44 U/L (21-72); AST/SGOT 35 U/L (17-59); BLOOD UREA NITROGEN 15 mg/dl (9-20); CALCIUM 8.6 mg/dL (8.4-10.2); GFR NON-AFRICAN AMERICAN > 60
[2019-02-20] MEDS: Insulin Regular 100 units/ml SC SCH ×4 (07:18→21:36)
[2019-02-20] MEDS: Ipratropium 0.02% Inhal Soln (0.5 mg/2.5 ml) UD IH SCH ×4 (08:04→19:29)
[2019-02-20] MEDS: Ciprofloxacin 200mg/100ml D5W 100 ML IVPB SCH ×2 (08:22→21:33)
[2019-02-20] MEDS: Fluconazole IV 200mg/100 ml NS 100 ML IVPB SCH (08:24)
[2019-02-20] MEDS: Acyclovir 5% OINT 15 APPLIC/15 GM EXT SCH ×4 (08:27→21:41)
--- NOTE | 2019-02-20 08:47 | CP.PCM.PN ---
Subjective - Date & Time of Evaluation Date of Evaluation: 02/20/19 Time of Evaluation: 08:38 - Subjective Subjective: Seen in ICU, lying semi-upright in bed waiting for breakfast. He does have some small amount of sputum now with coughing. His vital signs remain stable and he continues to be afebrile. WBC and platelets are again decreasing further. He has become very weakened by his chronic illness and prolonged ICU stay. He has been compliant with use of BiPAP from 10PM till 6AM nitely. During the daytime he has been using nasal canula without difficulties. TCO2 has decreased to 31 and the remainder of his electrolytes are okay. Chronically ill appearing, severe jount deformities of both hands. Trace dependant edema of both LEs without cyanosis. All extremities are warm to touch. Neck is supple and trachea is midline. There is continued absence of breath sounds at the right base posteriorly. Breath sounds are diminished in the remainder of lung amos as well. Scattered rhonchi and dry to medium rales are heard bilaterally. No audible bronchial breath sounds or wheezes. Heart sounds are distant, still tachy at times to 120s. Atelectasis/consolidation RLL with recurrent mucopurulent plug recently removed. Chronic hypercapnic/hypoxemic respiratory failure. COPD/CAD/RA/leukopenia/anemia and thrombocytopenia. Markedly debilitated from chronic severe illness. Maintain current medical/antibiotic regimen. Try to reduce or eliminate any medications, as possible. Avoid sedating medications as possible. Continue NPPV overnight/every night. Try to collect another sputum for culture. Physical therapy as tolerated. CCT 30min. Objective - Vital Signs/Intake and Output Vital Signs (last 24 hours): Temp Pulse Resp BP Pulse Ox 97.7 F 96 H 15 123/63 97 02/20/19 08:00 02/20/19 08:00 02/20/19 08:00 02/20/19 08:00 02/20/19 08:00 Intake and Output: 02/19/19 02/20/19 23:59 11:59 Intake Total 700 100 Output Total 1200 1300 Balance -500 -1200 - Medications Medications: Current Medications Acetaminophen (Tylenol 325mg Tab) 650 mg PO Q6 PRN PRN Reason: Pain, Mild (1-3) Last Admin: 02/19/19 16:19 Dose: 650 mg Acetaminophen/Butalbital/Caffeine (Fioricet) 1 tab PO Q6 PRN PRN Reason: Headache Acetazolamide (Diamox 250 Mg Tab) 250 mg PO DAILY [facility] Last Admin: 02/20/19 08:24 Dose: 250 mg Acyclovir (Zovirax 5% Oint) 1 applic EXT QID [facility] Last Admin: 02/20/19 08:27 Dose: 1 applic Artificial Tears (Artificial Tears) 2 drop OU Q4 PRN PRN Reason: Dry eyes Last Admin: 02/19/19 22:17 Dose: 2 drop Atorvastatin Calcium (Lipitor) 20 mg PO HS [facility] Last Admin: 02/19/19 21:47 Dose: 20 mg Baclofen (Lioresal) 10 mg PO DAILY [facility] Last Admin: 02/20/19 08:25 Dose: 10 mg Docusate Sodium (Colace) 100 mg PO Q12 [facility] Last Admin: 02/20/19 08:23 Dose: Not Given Famotidine (Pepcid) 20 mg PO BID [facility] Last Admin: 02/20/19 08:28 Dose: 20 mg Heparin Sodium (Porcine) (Heparin) 5,000 units SC Q12 [facility]; Protocol Last Admin: 02/19/19 21:46 Dose: 5,000 units Hydroxychloroquine Sulfate (Plaquenil) 200 mg PO DAILY [facility]; Protocol Last Admin: 02/08/19 08:46 Dose: 200 mg Ciprofloxacin (Cipro 200mg/100ml D5w) 100 mls @ 100 mls/hr IVPB Q12 [facility]; Protocol Last Admin: 02/20/19 08:22 Dose: 100 mls/hr Meropenem 1 gm/ Sodium (Chloride) 100 mls @ 100 mls/hr IVPB Q8 [facility]; Protocol Last Admin: 02/20/19 08:25 Dose: 100 mls/hr Vancomycin HCl 1 gm/ Sodium (Chloride) 250 mls @ 166.667 mls/hr IVPB Q12 [facility]; Protocol Last Admin: 02/20/19 08:27 Dose: 166.667 mls/hr Fluconazole (Diflucan Iv 200 Mg/100 Ml Ns) 100 mls @ 100 mls/hr IVPB DAILY [facility]; Protocol Last Admin: 02/20/19 08:24 Dose: 100 mls/hr Insulin Human Regular (Humulin R) 0 units SC ACHS [facility]; Protocol Last Admin: 04/16/19 07:18 Dose: Not Given Ipratropium [place] (Atrovent) 0.5 mg IH RQID [facility] Last Admin: 02/20/19 08:04 Dose: 0.5 mg Lactulose (Enulose) 20 gm PO DAILY PRN PRN Reason: Constipation Levalbuterol HCl (Xopenex) 1.25 mg INH RQ4 PRN PRN Reason: Shortness of Breath Last Admin: 02/19/19 07:49 Dose: 1.25 mg Methylprednisolone (Medrol) 8 mg PO BID [facility] Stop: 02/20/19 23:59 Last Admin: 02/20/19 08:25 Dose: 8 mg Methylprednisolone (Medrol) 8 mg PO DAILY [facility] Montelukast Sodium (Singulair) 10 mg PO HS [facility] Last Admin: 02/19/19 21:48 Dose: 10 mg Polyethylene Glycol (Miralax) 17 gm PO HS [facility] Last Admin: 02/19/19 21:47 Dose: Not Given Tamsulosin HCl (Flomax) 0.4 mg PO Q12 [facility] Last Admin: 02/20/19 08:24 Dose: 0.4 mg Temazepam (Restoril) 15 mg PO HS PRN PRN Reason: Insomnia Last Admin: 02/19/19 21:51 Dose: 15 mg Verapamil HCl (Calan Tab) 80 mg PO Q8H [facility] Last Admin: 02/20/19 03:47 Dose: Not Given - Labs Labs: 02/20/19 04:25 02/20/19 04:25 PT 9.7 Seconds (9.8-13.1) L 02/03/19 19:35 INR 0.9 02/03/19 19:35 APTT 31.2 Seconds (25.6-37.1) 02/11/19 16:24 Assessment and Plan (1) Pneumonia Status: Acute (2) Acute on chronic respiratory failure with hypoxemia Status: Chronic (3) Hypercapnic respiratory failure Status: Chronic (4) Mucus plugging of bronchi Status: Suspected
--- NOTE | 2019-02-20 09:24 | CP.PCM.PN ---
<Dylan Zarate - Last Filed: 02/20/19 11:04> Subjective - Date & Time of Evaluation Date of Evaluation: 02/20/19 Time of Evaluation: 09:23 - Subjective Subjective: pt seen and evaluated at bedside this morning. No acute events overnight. Sitting up in bed, having breakfast, NAD. Currently on 4L NC and comfortable. Pt reports feeling ok outside of chronic generalized joint pain. Still has phlegmous cough. Denies chest pain. Afebrile. Tolerating PO intake w/o issue. Hemodynamically stable. HR no higher than 96 overnight. Tolerating BiPap overnight w/o issue. No other complaints/concerns. Objective - Vital Signs/Intake and Output Vital Signs (last 24 hours): Temp Pulse Resp BP Pulse Ox 97.7 F 96 H 15 123/63 97 02/20/19 08:00 02/20/19 08:00 02/20/19 08:00 02/20/19 08:00 02/20/19 08:00 Intake and Output: 02/20/19 02/20/19 06:59 18:59 Intake Total 350 Output Total 1000 600 Balance -650 -600 - Medications Medications: Current Medications Acetaminophen (Tylenol 325mg Tab) 650 mg PO Q6 PRN PRN Reason: Pain, Mild (1-3) Last Admin: 02/19/19 16:19 Dose: 650 mg Acetaminophen/Butalbital/Caffeine (Fioricet) 1 tab PO Q6 PRN PRN Reason: Headache Acetazolamide (Diamox 250 Mg Tab) 250 mg PO DAILY [facility] Last Admin: 02/20/19 08:24 Dose: 250 mg Acyclovir (Zovirax 5% Oint) 1 applic EXT QID [facility] Last Admin: 02/20/19 08:27 Dose: 1 applic Artificial Tears (Artificial Tears) 2 drop OU Q4 PRN PRN Reason: Dry eyes Last Admin: 02/19/19 22:17 Dose: 2 drop Atorvastatin Calcium (Lipitor) 20 mg PO HS [facility] Last Admin: 02/19/19 21:47 Dose: 20 mg Baclofen (Lioresal) 10 mg PO DAILY [facility] Last Admin: 02/20/19 08:25 Dose: 10 mg Docusate Sodium (Colace) 100 mg PO Q12 [facility] Last Admin: 02/20/19 08:23 Dose: Not Given Famotidine (Pepcid) 20 mg PO BID [facility] Last Admin: 02/20/19 08:28 Dose: 20 mg Heparin Sodium (Porcine) (Heparin) 5,000 units SC Q12 [facility]; Protocol Last Admin: 02/19/19 21:46 Dose: 5,000 units Hydroxychloroquine Sulfate (Plaquenil) 200 mg PO DAILY [facility]; Protocol Last Admin: 02/08/19 08:46 Dose: 200 mg Ciprofloxacin (Cipro 200mg/100ml D5w) 100 mls @ 100 mls/hr IVPB Q12 [facility]; Protocol Last Admin: 02/20/19 08:22 Dose: 100 mls/hr Meropenem 1 gm/ Sodium (Chloride) 100 mls @ 100 mls/hr IVPB Q8 [facility]; Protocol Last Admin: 02/20/19 08:25 Dose: 100 mls/hr Vancomycin HCl 1 gm/ Sodium (Chloride) 250 mls @ 166.667 mls/hr IVPB Q12 [facility]; Protocol Last Admin: 02/20/19 08:27 Dose: 166.667 mls/hr Fluconazole (Diflucan Iv 200 Mg/100 Ml Ns) 100 mls @ 100 mls/hr IVPB DAILY [facility]; Protocol Last Admin: 02/20/19 08:24 Dose: 100 mls/hr Insulin Human Regular (Humulin R) 0 units SC ACHS [facility]; Protocol Last Admin: 02/20/19 07:18 Dose: Not Given Ipratropium [place] (Atrovent) 0.5 mg IH RQID [facility] Last Admin: 02/20/19 08:04 Dose: 0.5 mg Lactulose (Enulose) 20 gm PO DAILY PRN PRN Reason: Constipation Levalbuterol HCl (Xopenex) 1.25 mg INH RQ4 PRN PRN Reason: Shortness of Breath Last Admin: 02/19/19 07:49 Dose: 1.25 mg Methylprednisolone (Medrol) 8 mg PO BID [facility] Stop: 02/20/19 23:59 Last Admin: 02/20/19 08:25 Dose: 8 mg Methylprednisolone (Medrol) 8 mg PO DAILY [facility] Montelukast Sodium (Singulair) 10 mg PO HS [facility] Last Admin: 02/19/19 21:48 Dose: 10 mg Polyethylene Glycol (Miralax) 17 gm PO HS [facility] Last Admin: 02/19/19 21:47 Dose: Not Given Tamsulosin HCl (Flomax) 0.4 mg PO Q12 [facility] Last Admin: 02/20/19 08:24 Dose: 0.4 mg Temazepam (Restoril) 15 mg PO HS PRN PRN Reason: Insomnia Last Admin: 02/19/19 21:51 Dose: 15 mg Verapamil HCl (Calan Tab) 80 mg PO Q8H [facility] Last Admin: 02/20/19 03:47 Dose: Not Given - Labs Labs: 02/20/19 04:25 02/20/19 04:25 PT 9.7 Seconds (9.8-13.1) L 02/03/19 19:35 INR 0.9 02/03/19 19:35 APTT 31.2 Seconds (25.6-37.1) 02/11/19 16:24 - Constitutional Appears: Non-toxic, No Acute Distress, Chronically Ill - Head Exam Head Exam: ATRAUMATIC - Eye Exam Eye Exam: EOMI Pupil Exam: PERRL - ENT Exam ENT Exam: Mucous Membranes Moist - Neck Exam Neck Exam: Full ROM. absent: Lymphadenopathy - Respiratory Exam Respiratory Exam: Clear to Ausculation Bilateral, NORMAL BREATHING PATTERN. absent: Decreased Breath Sounds, Rales, Rhonchi, Wheezes, Stridor - Cardiovascular Exam Cardiovascular Exam: REGULAR RHYTHM, RRR, +S1, +S2. absent: JVD, Rubs, Murmur - GI/Abdominal Exam GI & Abdominal Exam: Soft, Normal Bowel Sounds. absent: Tenderness - Extremities Exam Extremities Exam: absent: Calf Tenderness, Pedal Edema Additional comments: hands with chronic deformity 2/2 to RA. - Neurological Exam Neurological Exam: Alert, Awake, CN II-XII Intact - Skin Skin Exam: Dry, Intact, Warm Assessment and Plan - Assessment and Plan (Free Text) Assessment: 73 year old male with h/o HF-rEF, COPD, RA, HLD, and paroxysmal atrial fibrillation admitted for acute COPD exacerbation with HCAP. 1. COPD exacerbation with Hypercapnia and Hypoxia -improving -hypercapnia resolved -duo-nebs -methylprednisolone 8mg BID -pulmonary on board, Dr. Amaya, recommendations appreciated -treat underlying pneumonia, s/p Bronch showing mixed bacterial/fungal -c/w nightly BiPap and Daily O2 supplementation via NC -monitor vitals 2. HCAP -afebrile -blood cx negative -follow up additional sputum culture if possible -C/w with Meropenem/Vancomycin/Cipro as per ID -additionally Fluconazole added for fungal species on bronch -Keep vanco trough <15 -monitor CBC/vitals 3. Paroxysmal atrial fibrillation -stable, HR 60-90s -Verapamil 80mg IV Q8 -cardiac monitoring 4. HF-rEF -chronic/stable -EF: 50-55% -mild systolic dysfunction -echo done 02/07/19 5. Thrombocytopenia -trending down -held heparin -Hem/Onc on board, Dr. Diaz, recommendations appreciated -monitor for bleeding -trend platelets 6. Rheumatoid Arthritis -chronic -Hydroxychloroquine held 2/2 to thrombcytopenia -f/u Hem/onc recs 5.Diet -heart healthy 6. Prophylaxis -heparin held (thrombocytopenia) -SCDs 7. Code Status -full code <Ivory ReneeLedy Elizabeth - Last Filed: 02/20/19 15:42> Objective - Vital Signs/Intake and Output Vital Signs (last 24 hours): Temp Pulse Resp BP Pulse Ox 97.9 F 109 H 17 104/54 L 95 02/20/19 12:00 02/20/19 13:57 02/20/19 13:57 02/20/19 13:57 02/20/19 13:57 Intake and Output: 02/20/19 02/20/19 06:59 18:59 Intake Total 350 1900 Output Total 1000 1075 Balance -650 825 - Medications Medications: Current Medications Acetaminophen (Tylenol 325mg Tab) 650 mg PO Q6 PRN PRN Reason: Pain, Mild (1-3) Last Admin: 02/19/19 16:19 Dose: 650 mg Acetaminophen/Butalbital/Caffeine (Fioricet) 1 tab PO Q6 PRN PRN Reason: Headache Last Admin: 02/20/19 10:17 Dose: 1 tab Acetazolamide (Diamox 250 Mg Tab) 250 mg PO DAILY [facility] Last Admin: 02/20/19 08:24 Dose: 250 mg Acyclovir (Zovirax 5% Oint) 1 applic EXT QID [facility] Last Admin: 02/20/19 12:19 Dose: Not Given Artificial Tears (Artificial Tears) 2 drop OU Q4 PRN PRN Reason: Dry eyes Last Admin: 02/19/19 22:17 Dose: 2 drop Atorvastatin Calcium (Lipitor) 20 mg PO HS [facility] Last Admin: 02/19/19 21:47 Dose: 20 mg Baclofen (Lioresal) 10 mg PO DAILY [facility] Last Admin: 02/20/19 08:25 Dose: 10 mg Docusate Sodium (Colace) 100 mg PO Q12 [facility] Last Admin: 02/20/19 08:23 Dose: Not Given Famotidine (Pepcid) 20 mg PO BID [facility] Last Admin: 02/20/19 08:28 Dose: 20 mg Heparin Sodium (Porcine) (Heparin) 5,000 units SC Q12 [facility]; Protocol Last Admin: 02/19/19 21:46 Dose: 5,000 units Hydroxychloroquine Sulfate (Plaquenil) 200 mg PO DAILY [facility]; Protocol Last Admin: 02/08/19 08:46 Dose: 200 mg Ciprofloxacin (Cipro 200mg/100ml D5w) 100 mls @ 100 mls/hr IVPB Q12 [facility]; Protocol Last Admin: 02/20/19 08:22 Dose: 100 mls/hr Meropenem 1 gm/ Sodium (Chloride) 100 mls @ 100 mls/hr IVPB Q8 [facility]; Protocol Last Admin: 02/20/19 08:25 Dose: 100 mls/hr Vancomycin HCl 1 gm/ Sodium (Chloride) 250 mls @ 166.667 mls/hr IVPB Q12 [facility]; Protocol Last Admin: 02/20/19 08:27 Dose: 166.667 mls/hr Fluconazole (Diflucan Iv 200 Mg/100 Ml Ns) 100 mls @ 100 mls/hr IVPB DAILY [facility]; Protocol Last Admin: 02/20/19 08:24 Dose: 100 mls/hr Insulin Human Regular (Humulin R) 0 units SC ACHS [facility]; Protocol Last Admin: 02/20/19 11:20 Dose: 1 unit Ipratropium [place] (Atrovent) 0.5 mg IH RQID [facility] Last Admin: 02/20/19 11:30 Dose: 0.5 mg Lactulose (Enulose) 20 gm PO DAILY PRN PRN Reason: Constipation Levalbuterol HCl (Xopenex) 1.25 mg INH RQ4 PRN PRN Reason: Shortness of Breath Last Admin: 02/19/19 07:49 Dose: 1.25 mg Lidocaine (Lidoderm) 2 ea TD DAILY [facility] Last Admin: 02/20/19 12:38 Dose: 2 ea Methylprednisolone (Medrol) 8 mg PO BID [facility] Stop: 02/20/19 23:59 Last Admin: 02/20/19 08:25 Dose: 8 mg Methylprednisolone (Medrol) 8 mg PO DAILY [facility] Montelukast Sodium (Singulair) 10 mg PO HS [facility] Last Admin: 02/19/19 21:48 Dose: 10 mg Polyethylene Glycol (Miralax) 17 gm PO HS [facility] Last Admin: 02/19/19 21:47 Dose: Not Given Tamsulosin HCl (Flomax) 0.4 mg PO Q12 [facility] Last Admin: 02/20/19 08:24 Dose: 0.4 mg Temazepam (Restoril) 15 mg PO HS PRN PRN Reason: Insomnia Last Admin: 02/19/19 21:51 Dose: 15 mg Verapamil HCl (Calan Tab) 80 mg PO Q8H [facility] Last Admin: 02/20/19 10:14 Dose: 80 mg - Labs Labs: 02/20/19 04:25 02/20/19 04:25 PT 9.7 Seconds (9.8-13.1) L 02/03/19 19:35 INR 0.9 02/03/19 19:35 APTT 31.2 Seconds (25.6-37.1) 02/11/19 16:24 Attending/Attestation - Attestation I have personally seen and examined this patient.: Yes I have fully participated in the care of the patient.: Yes I have reviewed all pertinent clinical information, including history, physical exam and plan: Yes Notes (Text): Acute on Chronic Respiratory Failure, Hypoxemic/Hypercapneic HCAP, bacterial COPD exacerbation Pancytopenia Paroxysmal A Fib Rheumatoid Arthritis Chronic CHF, systolic, EF 50% Pt is on 3-4 liters Oxygen per NC during the daytime and Bipap q hs cont IV Meropenem, Vanco, Cipro and Diflucan cont Duoneb tx, Diamox and PO Medrol Hold Hydrchloroquine due to pancytopenia monitor Platelets cont Verapamil , not a candidate for anticoagulation due to low Platelets ( 40 today) 02/20/19 15:40 02/20/19 15:41
[2019-02-20] MEDS: Apap-Butalbital-Caffeine 325-50-40mg Tab PO PRN ×2 (10:17→21:42)
--- NOTE | 2019-02-20 12:00 | CP.PCM.PN ---
Subjective - Date & Time of Evaluation Date of Evaluation: 02/20/19 Time of Evaluation: 12:00 - Subjective Subjective: ID Note- Patient seen and examined today in ICU. pt. c/o joint pains specially in his shoulders. He states he still has sob with movement. denies any fever. Objective - Vital Signs/Intake and Output Vital Signs (last 24 hours): Temp Pulse Resp BP Pulse Ox 97.7 F 109 H 19 127/58 L 100 02/20/19 08:00 02/20/19 10:14 02/20/19 10:00 02/20/19 10:14 02/20/19 10:00 Intake and Output: 02/20/19 02/20/19 06:59 18:59 Intake Total 350 800 Output Total 1000 800 Balance -650 0 - Medications Medications: Current Medications Acetaminophen (Tylenol 325mg Tab) 650 mg PO Q6 PRN PRN Reason: Pain, Mild (1-3) Last Admin: 02/19/19 16:19 Dose: 650 mg Acetaminophen/Butalbital/Caffeine (Fioricet) 1 tab PO Q6 PRN PRN Reason: Headache Last Admin: 02/20/19 10:17 Dose: 1 tab Acetazolamide (Diamox 250 Mg Tab) 250 mg PO DAILY [facility] Last Admin: 02/20/19 08:24 Dose: 250 mg Acyclovir (Zovirax 5% Oint) 1 applic EXT QID [facility] Last Admin: 02/20/19 08:27 Dose: 1 applic Artificial Tears (Artificial Tears) 2 drop OU Q4 PRN PRN Reason: Dry eyes Last Admin: 02/19/19 22:17 Dose: 2 drop Atorvastatin Calcium (Lipitor) 20 mg PO HS [facility] Last Admin: 02/19/19 21:47 Dose: 20 mg Baclofen (Lioresal) 10 mg PO DAILY [facility] Last Admin: 02/20/19 08:25 Dose: 10 mg Docusate Sodium (Colace) 100 mg PO Q12 [facility] Last Admin: 02/20/19 08:23 Dose: Not Given Famotidine (Pepcid) 20 mg PO BID [facility] Last Admin: 02/20/19 08:28 Dose: 20 mg Heparin Sodium (Porcine) (Heparin) 5,000 units SC Q12 [facility]; Protocol Last Admin: 02/19/19 21:46 Dose: 5,000 units Hydroxychloroquine Sulfate (Plaquenil) 200 mg PO DAILY [facility]; Protocol Last Admin: 02/08/19 08:46 Dose: 200 mg Ciprofloxacin (Cipro 200mg/100ml D5w) 100 mls @ 100 mls/hr IVPB Q12 [facility]; Protocol Last Admin: 02/20/19 08:22 Dose: 100 mls/hr Meropenem 1 gm/ Sodium (Chloride) 100 mls @ 100 mls/hr IVPB Q8 [facility]; Protocol Last Admin: 02/20/19 08:25 Dose: 100 mls/hr Vancomycin HCl 1 gm/ Sodium (Chloride) 250 mls @ 166.667 mls/hr IVPB Q12 [facility]; Protocol Last Admin: 02/20/19 08:27 Dose: 166.667 mls/hr Fluconazole (Diflucan Iv 200 Mg/100 Ml Ns) 100 mls @ 100 mls/hr IVPB DAILY [facility]; Protocol Last Admin: 02/20/19 08:24 Dose: 100 mls/hr Insulin Human Regular (Humulin R) 0 units SC ACHS [facility]; Protocol Last Admin: 02/20/19 11:20 Dose: 1 unit Ipratropium [place] (Atrovent) 0.5 mg IH RQID [facility] Last Admin: 02/20/19 11:30 Dose: 0.5 mg Lactulose (Enulose) 20 gm PO DAILY PRN PRN Reason: Constipation Levalbuterol HCl (Xopenex) 1.25 mg INH RQ4 PRN PRN Reason: Shortness of Breath Last Admin: 02/19/19 07:49 Dose: 1.25 mg Methylprednisolone (Medrol) 8 mg PO BID [facility] Stop: 02/20/19 23:59 Last Admin: 02/20/19 08:25 Dose: 8 mg Methylprednisolone (Medrol) 8 mg PO DAILY [facility] Montelukast Sodium (Singulair) 10 mg PO HS [facility] Last Admin: 02/19/19 21:48 Dose: 10 mg Polyethylene Glycol (Miralax) 17 gm PO HS [facility] Last Admin: 02/19/19 21:47 Dose: Not Given Tamsulosin HCl (Flomax) 0.4 mg PO Q12 [facility] Last Admin: 02/20/19 08:24 Dose: 0.4 mg Temazepam (Restoril) 15 mg PO HS PRN PRN Reason: Insomnia Last Admin: 02/19/19 21:51 Dose: 15 mg Verapamil HCl (Calan Tab) 80 mg PO Q8H [facility] Last Admin: 02/20/19 10:14 Dose: 80 mg - Labs Labs: - Additional Findings Additional findings: - Constitutional Appears: No Acute Distress, Chronically Ill - Head Exam Head Exam: ATRAUMATIC - Eye Exam Eye Exam: EOMI, PERRL - Neck Exam Neck exam: Positive for: Full Rom - Respiratory Exam Respiratory Exam: NORMAL BREATHING PATTERN Additional comments: decreased breath sounds bibasilar crackles heard at right base no wheezing - Cardiovascular Exam Additional comments: Irregularly Irregular - GI/Abdominal Exam GI & Abdominal Exam: Normal Bowel Sounds, Soft Additional comments: NT, ND - Extremities Exam Additional comments: no edema B/L LE - Neurological Exam Neurological exam: Alert, Oriented x 3 Laboratory Results - last 72 hr 02/17/19 02/17/19 02/17/19 09:19 11:25 17:31 WBC RBC Hgb Hct MCV MCH MCHC RDW Plt Count Sodium Potassium Chloride Carbon Dioxide Anion Gap BUN Creatinine Est GFR ( Amer) Est GFR (Non-Af Amer) POC Glucose (mg/dL) 126 H 143 H Random Glucose Calcium Total Bilirubin AST ALT Alkaline Phosphatase Total Protein Albumin Globulin Albumin/Globulin Ratio Vancomycin Trough Ur L.pneumophila Ag Negative 02/17/19 02/18/19 02/18/19 21:13 04:40 04:40 WBC 4.7 L RBC 3.14 L Hgb 10.2 L Hct 32.5 L MCV 103.4 H MCH 32.5 H MCHC 31.5 L RDW 19.2 H Plt Count 67 L Sodium 139 Potassium 4.4 Chloride 95 L Carbon Dioxide 40 H* Anion Gap 8 L BUN 18 Creatinine 0.5 L Est GFR ( Amer) > 60 Est GFR (Non-Af Amer) > 60 POC Glucose (mg/dL) 153 H Random Glucose 76 Calcium 8.7 Total Bilirubin AST ALT Alkaline Phosphatase Total Protein Albumin Globulin Albumin/Globulin Ratio Vancomycin Trough Ur L.pneumophila Ag 02/18/19 02/18/19 02/18/19 06:07 11:15 16:33 WBC RBC Hgb Hct MCV MCH MCHC RDW Plt Count Sodium Potassium Chloride Carbon Dioxide Anion Gap BUN Creatinine Est GFR ( Amer) Est GFR (Non-Af Amer) POC Glucose (mg/dL) 78 131 H 149 H Random Glucose Calcium Total Bilirubin AST ALT Alkaline Phosphatase Total Protein Albumin Globulin Albumin/Globulin Ratio Vancomycin Trough Ur L.pneumophila Ag 02/18/19 02/19/19 02/19/19 21:11 05:31 05:31 WBC 3.7 L RBC 2.95 L Hgb 9.6 L Hct 30.5 L MCV 103.3 H MCH 32.5 H MCHC 31.4 L RDW 19.0 H Plt Count 54 L Sodium 136 Potassium 4.1 Chloride 101 Carbon Dioxide 33 H Anion Gap 6 L BUN 13 Creatinine 0.5 L Est GFR ( Amer) > 60 Est GFR (Non-Af Amer) > 60 POC Glucose (mg/dL) 115 H Random Glucose 71 L Calcium 8.4 Total Bilirubin 0.7 AST 30 ALT 50 Alkaline Phosphatase 48 Total Protein 4.8 L Albumin 2.7 L Globulin 2.1 L Albumin/Globulin Ratio 1.2 Vancomycin Trough Ur L.pneumophila Ag 02/19/19 02/19/19 02/19/19 06:04 06:42 11:31 WBC RBC Hgb Hct MCV MCH MCHC RDW Plt Count Sodium Potassium Chloride Carbon Dioxide Anion Gap BUN Creatinine Est GFR ( Amer) Est GFR (Non-Af Amer) POC Glucose (mg/dL) 60 L 100 120 H Random Glucose Calcium Total Bilirubin AST ALT Alkaline Phosphatase Total Protein Albumin Globulin Albumin/Globulin Ratio Vancomycin Trough Ur L.pneumophila Ag 02/19/19 02/19/19 02/20/19 16:34 20:31 04:25 WBC RBC Hgb Hct MCV MCH MCHC RDW Plt Count Sodium Potassium Chloride Carbon Dioxide Anion Gap BUN Creatinine Est GFR ( Amer) Est GFR (Non-Af Amer) POC Glucose (mg/dL) 152 H 141 H Random Glucose Calcium Total Bilirubin AST ALT Alkaline Phosphatase Total Protein Albumin Globulin Albumin/Globulin Ratio Vancomycin Trough 13.5 H Ur L.pneumophila Ag 02/20/19 02/20/19 02/20/19 04:25 04:25 11:16 WBC 3.2 L RBC 2.92 L Hgb 9.7 L Hct 30.4 L MCV 104.3 H MCH 33.1 H MCHC 31.8 L RDW 19.7 H Plt Count 40 L Sodium 138 Potassium 4.5 Chloride 101 Carbon Dioxide 31 H Anion Gap 11 BUN 15 Creatinine 0.5 L Est GFR ( Amer) > 60 Est GFR (Non-Af Amer) > 60 POC Glucose (mg/dL) 154 H Random Glucose 95 Calcium 8.6 Total Bilirubin 0.7 AST 35 ALT 44 Alkaline Phosphatase 48 Total Protein 5.3 L Albumin 3.0 L Globulin 2.3 Albumin/Globulin Ratio 1.3 Vancomycin Trough Ur L.pneumophila Ag Microbiology 02/17/19 01:05 Sputum Gram Stain - Final 02/17/19 01:05 Sputum Sputum Culture - Final NORMAL ORAL KRISS 02/15/19 10:20 Other: Please Indicate Mycobacterial Culture - Preliminary 02/15/19 10:20 Bronchial Washings Fungal Culture - Preliminary 02/11/19 07:09 [facility]aris MRSA Culture (Admit) - Final MRSA NOT DETECTED 02/09/19 19:00 Naris MRSA Culture (Admit) - Final MRSA NOT DETECTED 02/03/19 19:35 Blood-Venous Blood Culture - Final NO GROWTH AFTER 5 DAYS 02/03/19 19:35 Blood-Venous Gram Stain - Final TEST NOT PERFORMED 02/03/19 19:35 Blood-Venous Blood Culture - Final NO GROWTH AFTER 5 DAYS 02/03/19 19:35 Blood-Venous Gram Stain - Final TEST NOT PERFORMED 02/03/19 08:00 Sputum Gram Stain - Final 02/03/19 08:00 Sputum Sputum Culture - Final NORMAL ORAL KRISS 02/04/19 06:03 [facility] MRSA Culture (Admit) - Final MRSA NOT DETECTED 02/03/19 20:50 Urine,Clean Catch Urine Culture - Final No Growth (<1,000 CFU/ML) Assessment and Plan (1) COPD exacerbation Status: Acute (2) HCAP (healthcare-associated pneumonia) Status: Acute (3) Paroxysmal atrial fibrillation with rapid ventricular response Status: Acute (4) CHF (congestive heart failure) Status: Acute (5) COPD (chronic obstructive pulmonary disease) Status: Chronic (6) Acute respiratory failure with hypoxia and hypercarbia Status: Acute - Assessment and Plan (Free Text) Assessment: A/P- 73 year old male with h/o RA on streoids and Plaquenil, COPD, admitted with copd exacerbation, hypercapneic resp faillure and zoster on abdomen . zoster has resolved , had completed course of acyclovir as per Primary doc. s/p bronch few days ago whoch as per game trapper had shown thick purulent fluid . afebrile blood cx- neg x 3 sputum cx- negative 02/03/2019-\BAl fungal and AFB smear- neg so far. BAL cytology report- negative for malignancy, mixed bacteria and some fungal possible emile ( as per report). Plan- advise to continue with broad spectrum antibiotics including meropenem, cipro and vanco day #4. Keep vanco trough <15. in light of possible emile in BAL continue fluconazole day #2 , as well specailly since pt. has been on steroids for his RA and is by definitions immunocompromised. All labs and imaging and chart notes reviewed. critical care time spent 40 minutes.
[2019-02-20] MEDS: Lidocaine 5% Patch TD SCH (12:38)
--- NOTE | 2019-02-20 13:19 | RAD ---
Date of service: 02/20/2019 HISTORY: pneumonia COMPARISON: 02/15/2019. Multiple serial examinations preceding the most recent study. FINDINGS: LUNGS: Low lung volumes. Stable right lower lobe infiltrate. Atelectasis left lower lobe. PLEURA: Right pleural effusion inseparable from adjacent consolidative change. CARDIOVASCULAR: Atherosclerotic calcifications identified primarily aortic arch. Stable cardiomegaly. OSSEOUS STRUCTURES: No significant abnormalities. VISUALIZED UPPER ABDOMEN: Normal. OTHER FINDINGS: None. IMPRESSION: No significant interval change compared to the prior examination(s).
--- NOTE | 2019-02-20 17:38 | PN ---
DATE: 02/20/2019 CRITICAL CARE PROGRESS NOTE LOCATION: The patient in ICU, bed 422. TIME SPENT: 35 minutes. The patient is seen and evaluated at bedside. Past medical, surgical, family, and social history are reviewed. Case discussed in multidisciplinary ICU rounds this morning. SUBJECTIVE: A 73-year-old male with history significant for chronic obstructive pulmonary disease, recurrent pneumonia, rheumatoid arthritis, paroxysmal atrial fibrillation with multiple admissions in the past for exacerbation of chronic obstructive pulmonary disease with hypercapnic hypoxic respiratory failure. Admitted with increasing shortness of breath and hypotension, noted to have respiratory failure, bilateral lower lobe pneumonia and varicella zoster lesion on the abdomen. Status post course completed with acyclovir and the herpes zoster lesion on the anterior abdominal wall resolved, status post bronchoscopy with bronchioalveolar lavage and noted to have purulent bronchial secretions with obstruction and atelectasis also on the right lower lobe. Overnight on BiPAP, tolerating from 10 to 6 a.m. This morning, alert and awake, off BiPAP, on nasal cannula supplement. Complaining of [id number] nonproductive cough. Tolerating p.o. feeds without any distress. PHYSICAL EXAMINATION: VITAL SIGNS: Temperature 97.7, heart rate 96-109, blood pressure of 127/58. Intake and output, 900 and output 2200, negative balance 1300. Urine voided 2000 mL. HEAD, EYES, EARS, NOSE AND THROAT: Pupils are reactive. Conjunctivae pink. Sclerae are white. NECK: Supple. Trachea is central. CHEST: Bilateral breath sounds, diminished in intensity, prolonged expiration. Scattered rales at the lung bases. HEART: Rhythm regular. No audible murmur. ABDOMEN: Bowel sounds present, soft. Liver and spleen not palpable. Bladder not distended. EXTREMITIES: Some trace edema, DP palpable. NEUROLOGIC: Alert, awake. Follows commands appropriate. No motor deficit. No cranial nerve deficit. CURRENT MEDICATIONS: Tylenol 650 every 6 hours p.r.n., Fioricet 1 tablet every 6 hours, Diamox 250 mg IV daily, Artificial Tears few drops every 4 hours, Lipitor 20 mg p.o. h.s., baclofen 10 mg p.o. daily, ciprofloxacin 200 mg IV every 12 hours, vancomycin 1 g every 12 hours, meropenem 1 g IV every 8 hours, Solu-Medrol 8 mg p.o. b.i.d., Singulair 10 mg p.o. at bedtime, Flomax 0.4 mg every 12 hours, Restoril 50 mg p.o. at bedtime p.r.n., verapamil 80 mg p.o. every 8 hours, Accu-Chek with regular insulin coverage, Plaquenil 200 mg p.o. daily on hold due to thrombocytopenia, Accu-Chek with regular insulin coverage, Duoneb 3 mL via nebulizer every 4 hours. IMPRESSION: 1. Neurologic: Alert, awake, oriented to name, place and time. 2. Pulmonary: Hypercapnic hypoxic respiratory failure, on bilevel positive airway pressure at night and on nasal cannula during daytime, status post bronchoscopy with bronchoalveolar lavage consistent with mucopurulent secretions obstructing the airway. Continue on DuoNeb, Mucomyst and chest physical therapy as tolerated. 3. Infectious Diseases: Hypercapnic hypoxic respiratory failure, recurrent. Possible tracheobronchitis. Immunocompromised, high risk for infections, on vancomycin, meropenem and ciprofloxacin. 4. Cardiac: Paroxysmal atrial fibrillation with rapid ventricular response, on verapamil. Tachycardia due to hypoxemia and due to nebulizer treatment. 5. Renal: Renal function within normal limits. 6. Hematology: Pancytopenia secondary to acute infection and/or due to polypharmacy including hydroxychloroquine. The platelet count remains stable. Appreciate Hematology input. 7. Endocrinology: Hyperglycemia secondary to steroid. Continue Accu-Chek with regular insulin coverage. Freeman Roberts MD
[2019-02-20] MEDS: Artificial Tears Opht Soln OU PRN (21:32)
[2019-02-20] MEDS: POLYETHYLENE GLYCOL 3350 17 GM/Dose PACKET PO SCH (21:39)
--- NOTE | 2019-02-20 22:30 | CP.PCM.PN ---
Subjective - Date & Time of Evaluation Date of Evaluation: 02/19/19 Time of Evaluation: 10:00 - Subjective Subjective: No complaints. Objective - Vital Signs/Intake and Output Vital Signs (last 24 hours): Temp Pulse Resp BP Pulse Ox 97.6 F 123 H 19 115/61 98 02/20/19 16:00 02/20/19 18:00 02/20/19 18:00 02/20/19 18:00 02/20/19 18:00 Intake and Output: 02/20/19 02/21/19 18:59 06:59 Intake Total 2600 Output Total 1375 250 Balance 1225 -250 - Medications Medications: Current Medications Acetaminophen (Tylenol 325mg Tab) 650 mg PO Q6 PRN PRN Reason: Pain, Mild (1-3) Last Admin: 02/19/19 16:19 Dose: 650 mg Acetaminophen/Butalbital/Caffeine (Fioricet) 1 tab PO Q6 PRN PRN Reason: Headache Last Admin: 02/20/19 21:42 Dose: 1 tab Acetazolamide (Diamox 250 Mg Tab) 250 mg PO DAILY [facility] Last Admin: 02/20/19 08:24 Dose: 250 mg Acyclovir (Zovirax 5% Oint) 1 applic EXT QID [facility] Last Admin: 02/20/19 21:41 Dose: Not Given Artificial Tears (Artificial Tears) 2 drop OU Q4 PRN PRN Reason: Dry eyes Last Admin: 02/20/19 21:32 Dose: 2 drop Atorvastatin Calcium (Lipitor) 20 mg PO HS [facility] Last Admin: 02/20/19 21:37 Dose: 20 mg Baclofen (Lioresal) 10 mg PO DAILY [facility] Last Admin: 02/20/19 08:25 Dose: 10 mg Docusate Sodium (Colace) 100 mg PO Q12 [facility] Last Admin: 02/20/19 21:35 Dose: 100 mg Famotidine (Pepcid) 20 mg PO BID [facility] Last Admin: 02/20/19 16:21 Dose: 20 mg Guaifenesin/Dextromethorphan (Robitussin Dm) 10 ml PO Q6 PRN PRN Reason: Cough Hydroxychloroquine Sulfate (Plaquenil) 200 mg PO DAILY [facility]; Protocol Last Admin: 02/08/19 08:46 Dose: 200 mg Ciprofloxacin (Cipro 200mg/100ml D5w) 100 mls @ 100 mls/hr IVPB Q12 [facility]; Protocol Last Admin: 02/20/19 21:33 Dose: 100 mls/hr Vancomycin HCl 1 gm/ Sodium (Chloride) 250 mls @ 166.667 mls/hr IVPB Q12 [facility]; Protocol Last Admin: 02/20/19 21:40 Dose: 166.667 mls/hr Fluconazole (Diflucan Iv 200 Mg/100 Ml Ns) 100 mls @ 100 mls/hr IVPB DAILY [facility]; Protocol Last Admin: 02/20/19 08:24 Dose: 100 mls/hr Meropenem 1 gm/ Sodium (Chloride) 100 mls @ 100 mls/hr IVPB Q8 [facility]; Protocol Last Admin: 02/20/19 21:39 Dose: 100 mls/hr Insulin Human Regular (Humulin R) 0 units SC ACHS [facility]; Protocol Last Admin: 02/20/19 21:36 Dose: Not Given Ipratropium [place] (Atrovent) 0.5 mg IH RQID [facility] Last Admin: 02/20/19 19:29 Dose: 0.5 mg Lactulose (Enulose) 20 gm PO DAILY PRN PRN Reason: Constipation Levalbuterol HCl (Xopenex) 1.25 mg INH RQ4 PRN PRN Reason: Shortness of Breath Last Admin: 02/19/19 07:49 Dose: 1.25 mg Lidocaine (Lidoderm) 2 ea TD DAILY [facility] Last Admin: 02/20/19 12:38 Dose: 2 ea Methylprednisolone (Medrol) 8 mg PO BID [facility] Stop: 02/20/19 23:59 Last Admin: 02/20/19 16:18 Dose: 8 mg Methylprednisolone (Medrol) 8 mg PO DAILY [facility] Montelukast Sodium (Singulair) 10 mg PO HS [facility] Last Admin: 02/20/19 21:40 Dose: 10 mg Polyethylene Glycol (Miralax) 17 gm PO HS [facility] Last Admin: 02/20/19 21:39 Dose: 17 gm Tamsulosin HCl (Flomax) 0.4 mg PO Q12 [facility] Last Admin: 02/20/19 21:36 Dose: 0.4 mg Temazepam (Restoril) 15 mg PO HS PRN PRN Reason: Insomnia Last Admin: 02/20/19 21:46 Dose: 15 mg Verapamil HCl (Calan Tab) 80 mg PO Q8H [facility] Last Admin: 02/20/19 17:50 Dose: 80 mg - Labs Labs: 02/20/19 04:25 02/20/19 04:25 PT 9.7 Seconds (9.8-13.1) L 02/03/19 19:35 INR 0.9 02/03/19 19:35 APTT 31.2 Seconds (25.6-37.1) 02/11/19 16:24 - Head Exam Head Exam: ATRAUMATIC - Eye Exam Eye Exam: Normal appearance - ENT Exam ENT Exam: Mucous Membranes Dry - Respiratory Exam Respiratory Exam: Decreased Breath Sounds - Cardiovascular Exam Cardiovascular Exam: +S1, +S2 - GI/Abdominal Exam GI & Abdominal Exam: Normal Bowel Sounds Assessment and Plan (1) Pancytopenia Assessment & Plan: prior improvement in cytopenias when holding hydroxychloroquine; on hold WBC and H/H improved, plt downtrending normal iron/b12/folate stores transfusion support PRN Status: Acute (2) Pancreatic mass Assessment & Plan: prior elevation in chromogranin A level; repeated ?neuroendocrine tumor not a good surgical candidate, will cont. to monitor Status: Acute
--- NOTE | 2019-02-20 22:31 | CP.PCM.PN ---
Subjective - Date & Time of Evaluation Date of Evaluation: 02/20/19 Time of Evaluation: 13:00 - Subjective Subjective: No complaints. Objective - Vital Signs/Intake and Output Vital Signs (last 24 hours): Temp Pulse Resp BP Pulse Ox 97.6 F 123 H 19 115/61 98 02/20/19 16:00 02/20/19 18:00 02/20/19 18:00 02/20/19 18:00 02/20/19 18:00 Intake and Output: 02/20/19 02/21/19 18:59 06:59 Intake Total 2600 Output Total 1375 250 Balance 1225 -250 - Medications Medications: Current Medications Acetaminophen (Tylenol 325mg Tab) 650 mg PO Q6 PRN PRN Reason: Pain, Mild (1-3) Last Admin: 02/19/19 16:19 Dose: 650 mg Acetaminophen/Butalbital/Caffeine (Fioricet) 1 tab PO Q6 PRN PRN Reason: Headache Last Admin: 02/20/19 21:42 Dose: 1 tab Acetazolamide (Diamox 250 Mg Tab) 250 mg PO DAILY [facility] Last Admin: 02/20/19 08:24 Dose: 250 mg Acyclovir (Zovirax 5% Oint) 1 applic EXT QID [facility] Last Admin: 02/20/19 21:41 Dose: Not Given Artificial Tears (Artificial Tears) 2 drop OU Q4 PRN PRN Reason: Dry eyes Last Admin: 02/20/19 21:32 Dose: 2 drop Atorvastatin Calcium (Lipitor) 20 mg PO HS [facility] Last Admin: 02/20/19 21:37 Dose: 20 mg Baclofen (Lioresal) 10 mg PO DAILY [facility] Last Admin: 02/20/19 08:25 Dose: 10 mg Docusate Sodium (Colace) 100 mg PO Q12 [facility] Last Admin: 02/20/19 21:35 Dose: 100 mg Famotidine (Pepcid) 20 mg PO BID [facility] Last Admin: 02/20/19 16:21 Dose: 20 mg Guaifenesin/Dextromethorphan (Robitussin Dm) 10 ml PO Q6 PRN PRN Reason: Cough Hydroxychloroquine Sulfate (Plaquenil) 200 mg PO DAILY [facility]; Protocol Last Admin: 02/08/19 08:46 Dose: 200 mg Ciprofloxacin (Cipro 200mg/100ml D5w) 100 mls @ 100 mls/hr IVPB Q12 [facility]; Protocol Last Admin: 02/20/19 21:33 Dose: 100 mls/hr Vancomycin HCl 1 gm/ Sodium (Chloride) 250 mls @ 166.667 mls/hr IVPB Q12 [facility]; Protocol Last Admin: 02/20/19 21:40 Dose: 166.667 mls/hr Fluconazole (Diflucan Iv 200 Mg/100 Ml Ns) 100 mls @ 100 mls/hr IVPB DAILY [facility]; Protocol Last Admin: 02/20/19 08:24 Dose: 100 mls/hr Meropenem 1 gm/ Sodium (Chloride) 100 mls @ 100 mls/hr IVPB Q8 [facility]; Protocol Last Admin: 02/20/19 21:39 Dose: 100 mls/hr Insulin Human Regular (Humulin R) 0 units SC ACHS [facility]; Protocol Last Admin: 02/20/19 21:36 Dose: Not Given Ipratropium [place] (Atrovent) 0.5 mg IH RQID [facility] Last Admin: 02/20/19 19:29 Dose: 0.5 mg Lactulose (Enulose) 20 gm PO DAILY PRN PRN Reason: Constipation Levalbuterol HCl (Xopenex) 1.25 mg INH RQ4 PRN PRN Reason: Shortness of Breath Last Admin: 02/19/19 07:49 Dose: 1.25 mg Lidocaine (Lidoderm) 2 ea TD DAILY [facility] Last Admin: 02/20/19 12:38 Dose: 2 ea Methylprednisolone (Medrol) 8 mg PO BID [facility] Stop: 02/20/19 23:59 Last Admin: 02/20/19 16:18 Dose: 8 mg Methylprednisolone (Medrol) 8 mg PO DAILY [facility] Montelukast Sodium (Singulair) 10 mg PO HS [facility] Last Admin: 02/20/19 21:40 Dose: 10 mg Polyethylene Glycol (Miralax) 17 gm PO HS [facility] Last Admin: 02/20/19 21:39 Dose: 17 gm Tamsulosin HCl (Flomax) 0.4 mg PO Q12 [facility] Last Admin: 02/20/19 21:36 Dose: 0.4 mg Temazepam (Restoril) 15 mg PO HS PRN PRN Reason: Insomnia Last Admin: 02/20/19 21:46 Dose: 15 mg Verapamil HCl (Calan Tab) 80 mg PO Q8H [facility] Last Admin: 02/20/19 17:50 Dose: 80 mg - Labs Labs: 02/20/19 04:25 02/20/19 04:25 PT 9.7 Seconds (9.8-13.1) L 02/03/19 19:35 INR 0.9 02/03/19 19:35 APTT 31.2 Seconds (25.6-37.1) 02/11/19 16:24 - Head Exam Head Exam: ATRAUMATIC - Eye Exam Eye Exam: Normal appearance - ENT Exam ENT Exam: Mucous Membranes Dry - Respiratory Exam Respiratory Exam: Decreased Breath Sounds - Cardiovascular Exam Cardiovascular Exam: +S1, +S2 - GI/Abdominal Exam GI & Abdominal Exam: Normal Bowel Sounds Assessment and Plan (1) Pancytopenia Assessment & Plan: prior improvement in cytopenias when holding hydroxychloroquine; on hold WBC and H/H improved, plt downtrending - heparin held normal iron/b12/folate stores transfusion support PRN Status: Acute (2) Pancreatic mass Assessment & Plan: prior elevation in chromogranin A level; repeated ?neuroendocrine tumor not a good surgical candidate, will cont. to monitor Status: Acute
[2019-02-20] MEDS: guaiFENesin DM 200 mg-20 mg/10 ml UD PO PRN (22:34)
--- NOTE | 2019-02-21 00:59 | PN ---
DATE: 02/20/2019 SUBJECTIVE: The patient is comfortable on high-flow nasal O2. He is currently in sinus rhythm with low sinus tachycardia with frequent APCs. PHYSICAL EXAMINATION: VITAL SIGNS: Blood pressure 106/67, heart rate 83, temperature 97.6, respirations 17. HEENT: Pale conjunctivae. CHEST: Bilateral rhonchi. HEART: S1 and S2, irregular ABDOMEN: Soft. EXTREMITIES: No edema. LABORATORY DATA: Today's SMA-7: Sodium 138, potassium 4.5, chloride 101, CO2 of 31, glucose 95, BUN 16, creatinine 0.5. Today's hemoglobin and hematocrit 9.7 and 30.4, white count 3.2, platelet count 40,000. ASSESSMENT: 1. Paroxysmal atrial fibrillation and atrial flutter. 2. Paroxysmal multifocal atrial tachycardia. 3. Chronic obstructive lung disease. 4. Worsening thrombocytopenia. 5. Coronary artery disease, status post coronary artery bypass surgery. RECOMMENDATIONS: Continue verapamil at 80 mg every 8 hours, Diamox 250 mg once a day, Lipitor 20 mg once a day. Discontinue subcutaneous heparin and obtain heparin-induced antiplatelet antibody assay. Geo Whitmore MD MTDD
[2019-02-21] MEDS: Meropenem 1 GM in Sodium Chloride 0.9% 100 ML IVPB SCH ×3 (01:12→16:26)
[2019-02-21 05:53] LABS: HEMOGLOBIN 9.3 g/dL (12.0-18.0); MEAN CELL VOLUME 103.3 fl (80.0-94.0); MEAN CORPUSCULAR HEMOGLOBIN 33.2 pg (27.0-31.0); MEAN CORPUSCULAR HGB CONC 32.1 g/dL (33.0-37.0); RBC 2.79 Mil/uL (4.40-5.90); RED CELL DISTRIBUTION WIDTH 19.8 % (11.5-14.5); WHITE BLOOD COUNT 3.4 K/uL (4.8-10.8)
[2019-02-21 06:08] LABS: ALB/GLOB RATIO 1.2 (1.0-2.1); ALBUMIN 2.8 g/dL (3.5-5.0); ALT/SGPT 49 U/L (21-72); AST/SGOT 30 U/L (17-59); BLOOD UREA NITROGEN 16 mg/dl (9-20); CALCIUM 8.5 mg/dL (8.4-10.2); GFR NON-AFRICAN AMERICAN > 60
[2019-02-21] MEDS: Insulin Regular 100 units/ml SC SCH ×4 (07:10→21:03)
[2019-02-21] MEDS: Ipratropium 0.02% Inhal Soln (0.5 mg/2.5 ml) UD IH SCH ×4 (07:35→19:18)
[2019-02-21] MEDS: Ciprofloxacin 200mg/100ml D5W 100 ML IVPB SCH ×2 (08:21→20:47)
[2019-02-21] MEDS: Fluconazole IV 200mg/100 ml NS 100 ML IVPB SCH (08:22)
[2019-02-21] MEDS: Lidocaine 5% Patch TD SCH (08:23)
[2019-02-21] MEDS: Acyclovir 5% OINT 15 APPLIC/15 GM EXT SCH ×4 (08:25→21:02)
--- NOTE | 2019-02-21 09:32 | CP.PCM.PN ---
Subjective - Date & Time of Evaluation Date of Evaluation: 02/21/19 Time of Evaluation: 09:32 - Subjective Subjective: ID Note- Patient seen and examined today in ICU. pt. awake and alert and in good spirits today. he states he is slightly less sob. cough present. no fever. Objective - Vital Signs/Intake and Output Vital Signs (last 24 hours): Temp Pulse Resp BP Pulse Ox 97.9 F 97 H 21 117/65 98 02/21/19 08:00 02/21/19 08:00 02/21/19 08:00 02/21/19 08:00 02/21/19 08:00 Intake and Output: 02/21/19 02/21/19 06:59 18:59 Intake Total 840 100 Output Total 1650 175 Balance -810 -75 - Medications Medications: Current Medications Acetaminophen (Tylenol 325mg Tab) 650 mg PO Q6 PRN PRN Reason: Pain, Mild (1-3) Last Admin: 02/19/19 16:19 Dose: 650 mg Acetaminophen/Butalbital/Caffeine (Fioricet) 1 tab PO Q6 PRN PRN Reason: Headache Last Admin: 02/20/19 21:42 Dose: 1 tab Acetazolamide (Diamox 250 Mg Tab) 250 mg PO DAILY [facility] Last Admin: 02/21/19 08:22 Dose: 250 mg Acyclovir (Zovirax 5% Oint) 1 applic EXT QID [facility] Last Admin: 02/21/19 08:25 Dose: 1 applic Artificial Tears (Artificial Tears) 2 drop OU Q4 PRN PRN Reason: Dry eyes Last Admin: 02/20/19 21:32 Dose: 2 drop Atorvastatin Calcium (Lipitor) 20 mg PO HS [facility] Last Admin: 02/20/19 21:37 Dose: 20 mg Baclofen (Lioresal) 10 mg PO DAILY [facility] Last Admin: 02/21/19 08:24 Dose: 10 mg Docusate Sodium (Colace) 100 mg PO Q12 [facility] Last Admin: 02/21/19 08:21 Dose: 100 mg Famotidine (Pepcid) 20 mg PO BID [facility] Last Admin: 02/21/19 08:50 Dose: 20 mg Guaifenesin/Dextromethorphan (Robitussin Dm) 10 ml PO Q6 PRN PRN Reason: Cough Last Admin: 02/20/19 22:34 Dose: 10 ml Hydroxychloroquine Sulfate (Plaquenil) 200 mg PO DAILY [facility]; Protocol Last Admin: 02/08/19 08:46 Dose: 200 mg Ciprofloxacin (Cipro 200mg/100ml D5w) 100 mls @ 100 mls/hr IVPB Q12 [facility]; Protocol Last Admin: 02/21/19 08:21 Dose: 100 mls/hr Vancomycin HCl 1 gm/ Sodium (Chloride) 250 mls @ 166.667 mls/hr IVPB Q12 [facility]; Protocol Last Admin: 02/21/19 08:25 Dose: 166.667 mls/hr Fluconazole (Diflucan Iv 200 Mg/100 Ml Ns) 100 mls @ 100 mls/hr IVPB DAILY [facility]; Protocol Last Admin: 02/21/19 08:22 Dose: 100 mls/hr Meropenem 1 gm/ Sodium (Chloride) 100 mls @ 100 mls/hr IVPB Q8 [facility]; Protocol Last Admin: 02/21/19 08:24 Dose: 100 mls/hr Insulin Human Regular (Humulin R) 0 units SC ACHS [facility]; Protocol Last Admin: 02/21/19 07:10 Dose: Not Given Ipratropium [place] (Atrovent) 0.5 mg IH RQID [facility] Last Admin: 02/21/19 07:35 Dose: 0.5 mg Lactulose (Enulose) 20 gm PO DAILY PRN PRN Reason: Constipation Levalbuterol HCl (Xopenex) 1.25 mg INH RQ4 PRN PRN Reason: Shortness of Breath Last Admin: 02/19/19 07:49 Dose: 1.25 mg Lidocaine (Lidoderm) 2 ea TD DAILY [facility] Last Admin: 02/21/19 08:23 Dose: 2 ea Methylprednisolone (Medrol) 8 mg PO DAILY [facility] Last Admin: 02/21/19 08:24 Dose: 8 mg Montelukast Sodium (Singulair) 10 mg PO HS [facility] Last Admin: 02/20/19 21:40 Dose: 10 mg Polyethylene Glycol (Miralax) 17 gm PO HS [facility] Last Admin: 02/20/19 21:39 Dose: 17 gm Tamsulosin HCl (Flomax) 0.4 mg PO Q12 [facility] Last Admin: 02/21/19 08:23 Dose: 0.4 mg Temazepam (Restoril) 15 mg PO HS PRN PRN Reason: Insomnia Last Admin: 02/20/19 21:46 Dose: 15 mg Verapamil HCl (Calan Tab) 80 mg PO Q8H [facility] Last Admin: 02/21/19 03:21 Dose: 80 mg - Labs Labs: - Additional Findings Additional findings: - Constitutional Appears: No Acute Distress, Chronically Ill - Head Exam Head Exam: ATRAUMATIC - Eye Exam Eye Exam: EOMI, PERRL - Neck Exam Neck exam: Positive for: Full Rom - Respiratory Exam Respiratory Exam: NORMAL BREATHING PATTERN Additional comments: decreased breath sounds bibasilar no wheezing - Cardiovascular Exam Additional comments: Irregularly Irregular - GI/Abdominal Exam GI & Abdominal Exam: Normal Bowel Sounds, Soft Additional comments: NT, ND - Extremities Exam Additional comments: no edema B/L LE - Neurological Exam Neurological exam: Alert, Oriented x 3 Laboratory Results - last 72 hr 02/17/19 02/17/19 02/17/19 09:19 11:25 17:31 WBC RBC Hgb Hct MCV MCH MCHC RDW Plt Count Sodium Potassium Chloride Carbon Dioxide Anion Gap BUN Creatinine Est GFR ( Amer) Est GFR (Non-Af Amer) POC Glucose (mg/dL) 126 H 143 H Random Glucose Calcium Total Bilirubin AST ALT Alkaline Phosphatase Total Protein Albumin Globulin Albumin/Globulin Ratio Vancomycin Trough Ur L.pneumophila Ag Negative 02/17/19 02/18/19 02/18/19 21:13 06:07 11:15 WBC RBC Hgb Hct MCV MCH MCHC RDW Plt Count Sodium Potassium Chloride Carbon Dioxide Anion Gap BUN Creatinine Est GFR ( Amer) Est GFR (Non-Af Amer) POC Glucose (mg/dL) 153 H 78 131 H Random Glucose Calcium Total Bilirubin AST ALT Alkaline Phosphatase Total Protein Albumin Globulin Albumin/Globulin Ratio Vancomycin Trough Ur L.pneumophila Ag 02/18/19 02/18/19 02/19/19 16:33 21:11 05:31 WBC 3.7 L RBC 2.95 L Hgb 9.6 L Hct 30.5 L MCV 103.3 H MCH 32.5 H MCHC 31.4 L RDW 19.0 H Plt Count 54 L Sodium Potassium Chloride Carbon Dioxide Anion Gap BUN Creatinine Est GFR ( Amer) Est GFR (Non-Af Amer) POC Glucose (mg/dL) 149 H 115 H Random Glucose Calcium Total Bilirubin AST ALT Alkaline Phosphatase Total Protein Albumin Globulin Albumin/Globulin Ratio Vancomycin Trough Ur L.pneumophila Ag 02/19/19 02/19/19 02/19/19 05:31 06:04 06:42 WBC RBC Hgb Hct MCV MCH MCHC RDW Plt Count Sodium 136 Potassium 4.1 Chloride 101 Carbon Dioxide 33 H Anion Gap 6 L BUN 13 Creatinine 0.5 L Est GFR ( Amer) > 60 Est GFR (Non-Af Amer) > 60 POC Glucose (mg/dL) 60 L 100 Random Glucose 71 L Calcium 8.4 Total Bilirubin 0.7 AST 30 ALT 50 Alkaline Phosphatase 48 Total Protein 4.8 L Albumin 2.7 L Globulin 2.1 L Albumin/Globulin Ratio 1.2 Vancomycin Trough Ur L.pneumophila Ag 02/19/19 02/19/19 02/19/19 11:31 16:34 20:31 WBC RBC Hgb Hct MCV MCH MCHC RDW Plt Count Sodium Potassium Chloride Carbon Dioxide Anion Gap BUN Creatinine Est GFR ( Amer) Est GFR (Non-Af Amer) POC Glucose (mg/dL) 120 H 152 H 141 H Random Glucose Calcium Total Bilirubin AST ALT Alkaline Phosphatase Total Protein Albumin Globulin Albumin/Globulin Ratio Vancomycin Trough Ur L.pneumophila Ag 02/20/19 02/20/19 02/20/19 04:25 04:25 04:25 WBC 3.2 L RBC 2.92 L Hgb 9.7 L Hct 30.4 L MCV 104.3 H MCH 33.1 H MCHC 31.8 L RDW 19.7 H Plt Count 40 L Sodium 138 Potassium 4.5 Chloride 101 Carbon Dioxide 31 H Anion Gap 11 BUN 15 Creatinine 0.5 L Est GFR ( Amer) > 60 Est GFR (Non-Af Amer) > 60 POC Glucose (mg/dL) Random Glucose 95 Calcium 8.6 Total Bilirubin 0.7 AST 35 ALT 44 Alkaline Phosphatase 48 Total Protein 5.3 L Albumin 3.0 L Globulin 2.3 Albumin/Globulin Ratio 1.3 Vancomycin Trough 13.5 H Ur L.pneumophila Ag 02/20/19 02/20/19 02/20/19 07:11 11:16 15:38 WBC RBC Hgb Hct MCV MCH MCHC RDW Plt Count Sodium Potassium Chloride Carbon Dioxide Anion Gap BUN Creatinine Est GFR ( Amer) Est GFR (Non-Af Amer) POC Glucose (mg/dL) 92 154 H 167 H Random Glucose Calcium Total Bilirubin AST ALT Alkaline Phosphatase Total Protein Albumin Globulin Albumin/Globulin Ratio Vancomycin Trough Ur L.pneumophila Ag 02/20/19 02/21/19 02/21/19 20:03 05:10 05:32 WBC 3.4 L RBC 2.79 L Hgb 9.3 L Hct 28.8 L MCV 103.3 H MCH 33.2 H MCHC 32.1 L RDW 19.8 H Plt Count 50 L Sodium Potassium Chloride Carbon Dioxide Anion Gap BUN Creatinine Est GFR ( Amer) Est GFR (Non-Af Amer) POC Glucose (mg/dL) 152 H 108 Random Glucose Calcium Total Bilirubin AST ALT Alkaline Phosphatase Total Protein Albumin Globulin Albumin/Globulin Ratio Vancomycin Trough Ur L.pneumophila Ag 02/21/19 05:32 WBC RBC Hgb Hct MCV MCH MCHC RDW Plt Count Sodium 135 Potassium 3.7 Chloride 102 Carbon Dioxide 31 H Anion Gap 6 L BUN 16 Creatinine 0.5 L Est GFR ( Amer) > 60 Est GFR (Non-Af Amer) > 60 POC Glucose (mg/dL) Random Glucose 97 Calcium 8.5 Total Bilirubin 0.5 AST 30 ALT 49 Alkaline Phosphatase 52 Total Protein 5.1 L Albumin 2.8 L Globulin 2.3 Albumin/Globulin Ratio 1.2 Vancomycin Trough Ur L.pneumophila Ag Microbiology 02/20/19 18:28 Sputum Gram Stain - Final 02/17/19 01:05 Sputum Gram Stain - Final 02/17/19 01:05 Sputum Sputum Culture - Final NORMAL ORAL KRISS 02/15/19 10:20 Other: Please Indicate Mycobacterial Culture - Preliminary 02/15/19 10:20 Bronchial Washings Fungal Culture - Preliminary 02/11/19 07:09 Naris MRSA Culture (Admit) - Final MRSA NOT DETECTED 02/09/19 19:00 Naris MRSA Culture (Admit) - Final MRSA NOT DETECTED 02/03/19 19:35 Blood-Venous Blood Culture - Final NO GROWTH AFTER 5 DAYS 02/03/19 19:35 Blood-Venous Gram Stain - Final TEST NOT PERFORMED 02/03/19 19:35 Blood-Venous Blood Culture - Final NO GROWTH AFTER 5 DAYS 02/03/19 19:35 Blood-Venous Gram Stain - Final TEST NOT PERFORMED 02/03/19 08:00 Sputum Gram Stain - Final 02/03/19 08:00 Sputum Sputum Culture - Final NORMAL ORAL KRISS 02/04/19 06:03 [facility] MRSA Culture (Admit) - Final MRSA NOT DETECTED 02/03/19 20:50 Urine,Clean Catch Urine Culture - Final No Growth (<1,000 CFU/ML) Accession No. : [id number] Patient Name / ID : PURNIMA Poole / [id number] Exam Date : 02/20/2019 08:58:23 ( Approved ) Study Comment : Sex / Age : M / 73Y Creator : Michael Contreras MD Dictator : Michael Contreras MD [employer] Supervisor : Bag Worker : Michael Contreras MD Approver2 : Report Date : 02/20/2019 13:14:09 My Comment : Date of service: 02/20/2019 HISTORY: pneumonia COMPARISON: 02/15/2019. Multiple serial examinations preceding the most recent study. FINDINGS: LUNGS: Low lung volumes. Stable right lower lobe infiltrate. Atelectasis left lower lobe. PLEURA: Right pleural effusion inseparable from adjacent consolidative change. CARDIOVASCULAR: Atherosclerotic calcifications identified primarily aortic arch. Stable cardiomegaly. OSSEOUS STRUCTURES: No significant abnormalities. VISUALIZED UPPER ABDOMEN: Normal. OTHER FINDINGS: None. IMPRESSION: No significant interval change compared to the prior examination(s). Assessment and Plan (1) COPD exacerbation Status: Acute (2) HCAP (healthcare-associated pneumonia) Status: Acute (3) Paroxysmal atrial fibrillation with rapid ventricular response Status: Acute (4) CHF (congestive heart failure) Status: Acute (5) COPD (chronic obstructive pulmonary disease) Status: Chronic (6) Acute respiratory failure with hypoxia and hypercarbia Status: Acute - Assessment and Plan (Free Text) Assessment: A/P- 73 year old male with h/o RA on streoids and Plaquenil, COPD, admitted with copd exacerbation, hypercapneic resp faillure and zoster on abdomen . zoster has resolved , had completed course of acyclovir as per Primary doc. s/p bronch few days ago whoch as per business relations manager had shown thick purulent fluid . afebrile blood cx- neg x 3 sputum cx- negative 02/03/2019-\BAl fungal and AFB smear- neg so far. BAL cytology report- negative for malignancy, mixed bacteria and some fungal possible emile ( as per report). Plan- another sputum cx from 02/20/2019-pending advise to continue with broad spectrum antibiotics including meropenem, cipro and vanco day #5 Keep vanco trough <15. in light of possible emile in BAL continue fluconazole day #3 , as well specially since pt. has been on steroids for his RA and is by definitions immunocompromised. All labs and imaging and chart notes reviewed. critical care time spent 40 minutes.
--- NOTE | 2019-02-21 09:35 | CP.PCM.PN ---
Subjective - Date & Time of Evaluation Date of Evaluation: 02/21/19 Time of Evaluation: 09:34 - Subjective Subjective: Seen on morning rounds. Remains in ICU at this time. Interim events and recent EMR entries reviewed. Had a sputum specimen collected and sent to the lab yesterday. Has remained afebril with adequate oxygenation. Has maintained a routine of using BiPAP from 10PM to 6 AM daily. Able to remain on standard nasal canula during the daytime hours. Has less cough than the days prior. Unable to view CXR on computer, report noted. Labs reviewed. Awake and oriented, cooperative with the exam. Neck is supple and trachea midline. Pharynx is pink and moist, tongue is coated. No dullness on percussion of the anterior chest wall. Breath sounds are diminished equally in both lungs anteriorly. Inspiratory phase seems shortened. No audible wheezes. Medium rales present in the lower lobe on the left. Breath sounds are not heard in the right base. Chronic atelectasis/consolidation of the RLL despite bronchoscopic removal of purulent plug. Severe chronic lung disease that includes COPD as well as the above. Will continue present antibiotic regimen with the hope that it will result in reduced secretions. Intolerant of beta adrenergic therapies because of cardiac arrhythmias. Paroxysmal MAT, a flutter/fib secondary to severe lung disease. Prognosis for recovery is poor. CCT 30 min. Objective - Vital Signs/Intake and Output Vital Signs (last 24 hours): Temp Pulse Resp BP Pulse Ox 97.9 F 97 H 21 117/65 98 02/21/19 08:00 02/21/19 08:00 02/21/19 08:00 02/21/19 08:00 02/21/19 08:00 Intake and Output: 02/20/19 02/21/19 23:59 11:59 Intake Total 1900 840 Output Total 1125 1275 Balance 775 -435 - Medications Medications: Current Medications Acetaminophen (Tylenol 325mg Tab) 650 mg PO Q6 PRN PRN Reason: Pain, Mild (1-3) Last Admin: 02/19/19 16:19 Dose: 650 mg Acetaminophen/Butalbital/Caffeine (Fioricet) 1 tab PO Q6 PRN PRN Reason: Headache Last Admin: 02/20/19 21:42 Dose: 1 tab Acetazolamide (Diamox 250 Mg Tab) 250 mg PO DAILY [facility] Last Admin: 02/21/19 08:22 Dose: 250 mg Acyclovir (Zovirax 5% Oint) 1 applic EXT QID [facility] Last Admin: 02/21/19 08:25 Dose: 1 applic Artificial Tears (Artificial Tears) 2 drop OU Q4 PRN PRN Reason: Dry eyes Last Admin: 02/20/19 21:32 Dose: 2 drop Atorvastatin Calcium (Lipitor) 20 mg PO HS [facility] Last Admin: 02/20/19 21:37 Dose: 20 mg Baclofen (Lioresal) 10 mg PO DAILY [facility] Last Admin: 02/21/19 08:24 Dose: 10 mg Docusate Sodium (Colace) 100 mg PO Q12 [facility] Last Admin: 02/21/19 08:21 Dose: 100 mg Famotidine (Pepcid) 20 mg PO BID [facility] [place] Last Admin: 02/21/19 08:50 Dose: 20 mg Guaifenesin/Dextromethorphan (Robitussin Dm) 10 ml PO Q6 PRN PRN Reason: Cough Last Admin: 02/20/19 22:34 Dose: 10 ml Hydroxychloroquine Sulfate (Plaquenil) 200 mg PO DAILY [facility]; Protocol Last Admin: 02/08/19 08:46 Dose: 200 mg Ciprofloxacin (Cipro 200mg/100ml D5w) 100 mls @ 100 mls/hr IVPB Q12 [facility]; Protocol Last Admin: 02/21/19 08:21 Dose: 100 mls/hr Vancomycin HCl 1 gm/ Sodium (Chloride) 250 mls @ 166.667 mls/hr IVPB Q12 [facility]; Protocol Last Admin: 02/21/19 08:25 Dose: 166.667 mls/hr Fluconazole (Diflucan Iv 200 Mg/100 Ml Ns) 100 mls @ 100 mls/hr IVPB DAILY [facility]; Protocol Last Admin: 02/21/19 08:22 Dose: 100 mls/hr Meropenem 1 gm/ Sodium (Chloride) 100 mls @ 100 mls/hr IVPB Q8 [facility]; Protocol Last Admin: 02/21/19 08:24 Dose: 100 mls/hr Insulin Human Regular (Humulin R) 0 units SC ACHS [facility]; Protocol Last Admin: 02/21/19 07:10 Dose: Not Given Ipratropium [place] (Atrovent) 0.5 mg IH RQID [facility] Last Admin: 02/21/19 07:35 Dose: 0.5 mg Lactulose (Enulose) 20 gm PO DAILY PRN PRN Reason: Constipation Levalbuterol HCl (Xopenex) 1.25 mg INH RQ4 PRN PRN Reason: Shortness of Breath Last Admin: 02/19/19 07:49 Dose: 1.25 mg Lidocaine (Lidoderm) 2 ea TD DAILY [facility] Last Admin: 02/21/19 08:23 Dose: 2 ea Methylprednisolone (Medrol) 8 mg PO DAILY [facility] Last Admin: 02/21/19 08:24 Dose: 8 mg Montelukast Sodium (Singulair) 10 mg PO HS [facility] [place] Last Admin: 02/20/19 21:40 Dose: 10 mg Polyethylene Glycol (Miralax) 17 gm PO HS [facility] [place] Last Admin: 02/20/19 21:39 Dose: 17 gm Tamsulosin HCl (Flomax) 0.4 mg PO Q12 [facility] [place] Last Admin: 02/21/19 08:23 Dose: 0.4 mg Temazepam (Restoril) 15 mg PO HS PRN PRN Reason: Insomnia Last Admin: 02/20/19 21:46 Dose: 15 mg Verapamil HCl (Calan Tab) 80 mg PO Q8H [facility] [place] Last Admin: 02/21/19 03:21 Dose: 80 mg - Labs Labs: 02/21/19 05:32 02/21/19 05:32 PT 9.7 Seconds (9.8-13.1) L 02/03/19 19:35 INR 0.9 02/03/19 19:35 APTT 31.2 Seconds (25.6-37.1) 02/11/19 16:24 Assessment and Plan (1) Pneumonia Status: Acute (2) Acute on chronic respiratory failure with hypoxemia Status: Chronic (3) Hypercapnic respiratory failure Status: Chronic (4) Mucus plugging of bronchi Status: Suspected
--- NOTE | 2019-02-21 10:34 | CP.CCUPN ---
CCU Subjective - Physician Review Subjective (Free Text): No acute overnight events, remains on BIPAP at night, on O2 via NC. Endorsing shoulder pain b/l today. States that breathing is better this morning. HR noted monitor, 80's-110's, and O2 97-100% Assessment/Plan: 1. Acute on chronic respiratory failure, Hypoxia/hypercapnia -Improving, cont on O2 via NC 2. HCAP -ID on board, c/w Vanc, John, cipro per ID -BAL sig for emile, c/w Diflucan 3. COPD, acute on chronic -improving, c/w Bipap overnight -c.w Xopenex, singular, per Pulmo started on steroid PO daily (D1 today) 4. Paroxysmal A fib, MAT -likely 2.2 to chronic COPD -controlled, rate 80's-110's -c/w Veramapril 5. RA, chronic -will restarted hydroxychloroquine given symptoms and no response on platelets when stopped -Lidoderm patches 6. pancytopenia, chronic -Hem/onc on board -stable 7. DVT prophylx -given pts current status, hx of malignancy and immobility will start Lovenox SC -benefit of Lovenox outweigh the risks -will cont to monitor platelet levels 8. PT/OT -encourage OOB to chair 02/21/19 11:34 Critical Care Time Spent (in minutes): 40 CCU Objective - Vital Signs / Intake & Output Vital Signs (Last 4 hours): Vital Signs Temp Pulse Resp BP Pulse Ox 02/21/19 10:18 109 H 103/63 02/21/19 10:00 109 H 19 103/63 99 02/21/19 08:00 97.9 F 97 H 21 117/65 98 Intake and Output (Last 8hrs): Intake & Output 02/20/19 02/21/19 02/21/19 22:59 06:59 14:59 Intake Total 800 740 800 Output Total 850 1100 275 Balance -50 -360 525 Weight 60.373 kg Intake: Intake, Piggyback 200 500 300 Oral 600 240 500 Output: Urine 850 1100 275 Urine, Voided 850 1100 275 Other: # Bowel Movements 1 - Physical Exam Head: Positive for: Atraumatic, Normocephalic Pupils: Positive for: PERRL Extroacular Muscles: Positive for: EOMI Conjunctiva: Positive for: Normal. Negative for: Injected, Icteric Mouth: Positive for: Moist Mucous Membranes Nose (External): Positive for: Other (NC on ) Neck: Positive for: Normal Range of Motion, Trachea Midline. Negative for: Meningeal Signs, MIDLINE TENDERNESS, Paraspinal Tenderness, JVD, Lymph adenopathy, Bruit, Other Respiratory/Chest: Positive for: Decreased Breath Sounds, Rhonchi (b/l on the lower lobes ), Other (course breath sounds b/l ). Negative for: Respiratory Distress, Accessory Muscle Use, Wheezes, Rales, Tachypneic Cardiovascular: Positive for: Irregular Rhythm, Tachycardic Abdomen: Positive for: Normal Bowel Sounds. Negative for: Tenderness, Distention Upper Extremity: Positive for: Normal Inspection, Other (contracted fingers ) Lower Extremity: Positive for: Normal Inspection, Edema (mild edema in the lower ext b/l ), Other (Moving all ext, SCDs on b/l lower ext) Psychiatric: Positive for: Alert - Medications Active Medications: Active Medications Generic Name Dose Route Start Last Admin Trade Name Freq PRN Reason Stop Dose Admin Acetaminophen 650 mg 02/03/19 23:28 02/19/19 16:19 Tylenol 325mg Tab PO 650 mg Q6 PRN Administration Pain, Mild (1-3) Acetaminophen/Butalbital/Caffeine 1 tab 02/20/19 08:32 02/20/19 21:42 Fioricet PO 1 tab Q6 PRN Administration Headache Acetazolamide 250 mg 02/18/19 09:30 02/21/19 08:22 Diamox 250 Mg Tab PO 250 mg DAILY ARTEMIO Administration Acyclovir 1 applic 02/04/19 09:00 02/21/19 08:25 Zovirax 5% Oint EXT 1 applic QID [facility]EMIO Administration Artificial Tears 2 drop 02/14/19 09:52 02/20/19 21:32 Artificial Tears OU 2 drop Q4 PRN Administration Dry eyes Atorvastatin Calcium 20 mg 02/04/19 22:00 02/20/19 21:37 Lipitor PO 20 mg HS [facility]IO Administration Baclofen 10 mg 02/04/19 09:00 02/21/19 08:24 Lioresal PO 10 mg DAILY [facility]IO Administration Docusate Sodium 100 mg 02/04/19 09:00 02/21/19 08:21 Colace PO 100 mg Q12 [facility]IO Administration Enoxaparin Sodium 40 mg 02/21/19 10:30 Lovenox SC DAILY [facility] Protocol Famotidine 20 mg 02/04/19 09:00 02/21/19 08:50 Pepcid PO 20 mg BID [facility]IO Administration Guaifenesin/Dextromethorphan 10 ml 02/20/19 21:59 02/20/19 22:34 Robitussin Dm PO 10 ml Q6 PRN Administration Cough Hydroxychloroquine Sulfate 200 mg 02/04/19 09:00 02/08/19 08:46 Plaquenil PO 200 mg DAILY [facility]IO Administration Protocol Ciprofloxacin 100 mls @ 100 mls/hr 02/17/19 21:00 02/21/19 08:21 Cipro 200mg/100ml D5w IVPB 100 mls/hr Q12 [facility]EMIO Administration Protocol Vancomycin HCl 1 gm/ Sodium 250 mls @ 166.667 mls/hr 02/17/19 21:00 02/21/19 08:25 Chloride IVPB 166.667 mls/hr Q12 ARTEMIO Administration Protocol Fluconazole 100 mls @ 100 mls/hr 02/19/19 15:00 02/21/19 08:22 Diflucan Iv 200 Mg/100 Ml Ns IVPB 100 mls/hr DAILY [facility]IO Administration Protocol Meropenem 1 gm/ Sodium 100 mls @ 100 mls/hr 02/20/19 20:45 02/21/19 08:24 Chloride IVPB 100 mls/hr Q8 [facility]IO Administration Protocol Insulin Human Regular 0 units 02/04/19 07:30 02/21/19 07:10 Humulin R SC Not Given ACHS [facility] Protocol Ipratropium [place] 0.5 mg 02/11/19 22:00 02/21/19 07:35 Atrovent IH 0.5 mg RQID [facility] Administration Lactulose 20 gm 02/04/19 13:54 Enulose PO DAILY PRN Constipation Levalbuterol HCl 1.25 mg 02/11/19 20:52 02/19/19 07:49 Xopenex INH 1.25 mg RQ4 PRN Administration Shortness of Breath Lidocaine 2 ea 02/20/19 12:30 02/21/19 08:23 Lidoderm TD 2 ea DAILY [facility] Administration Methylprednisolone 8 mg 02/21/19 09:00 02/21/19 08:24 Medrol PO 8 mg DAILY [facility] Administration Montelukast Sodium 10 mg 02/04/19 22:00 02/20/19 21:40 Singulair PO 10 mg HS [facility]IO Administration Polyethylene Glycol 17 gm 02/12/19 22:00 02/20/19 21:39 Miralax PO 17 gm HS [facility]IO Administration Tamsulosin HCl 0.4 mg 02/04/19 21:00 02/21/19 08:23 Flomax PO 0.4 mg Q12 [facility] Administration Temazepam 15 mg 02/14/19 21:27 02/20/19 21:46 Restoril PO 15 mg HS PRN Administration Insomnia Verapamil HCl 80 mg 02/19/19 10:45 02/21/19 10:18 Calan Tab PO 80 mg Q8H [facility] Administration - Patient Studies Lab Studies: Microbiology Studies 02/20/19 18:28 Gram Stain - Final Sputum 02/17/19 01:05 Gram Stain - Final Sputum Sputum Culture - Final NORMAL ORAL KRISS Lab Studies 02/21/19 02/21/19 02/21/19 Range/Units 05:32 05:32 05:10 WBC 3.4 L (4.8-10.8) K/uL RBC 2.79 L (4.40-5.90) Mil/uL Hgb 9.3 L (12.0-18.0) g/dL Hct 28.8 L (35.0-51.0) % MCV 103.3 H (80.0-94.0) fl MCH 33.2 H (27.0-31.0) pg MCHC 32.1 L (33.0-37.0) g/dL RDW 19.8 H (11.5-14.5) % Plt Count 50 L (130-400) K/uL Sodium 135 (132-148) mmol/l Potassium 3.7 (3.6-5.0) MMOL/L Chloride 102 (98-107) mmol/L Carbon Dioxide 31 H (22-30) mmol/L Anion Gap 6 L (10-20) BUN 16 (9-20) mg/dl Creatinine 0.5 L (0.8-1.5) mg/dl Est GFR ( Amer) > 60 Est GFR (Non-Af Amer) > 60 POC Glucose (mg/dL) 108 (65-110) mg/dL Random Glucose 97 (75-110) mg/dL Calcium 8.5 (8.4-10.2) mg/dL Total Bilirubin 0.5 (0.2-1.3) mg/dl AST 30 (17-59) U/L ALT 49 (21-72) U/L Alkaline Phosphatase 52 (38-126) U/L Total Protein 5.1 L (6.3-8.2) G/DL Albumin 2.8 L (3.5-5.0) g/dL Globulin 2.3 (2.2-3.9) gm/dL Albumin/Globulin Ratio 1.2 (1.0-2.1) 02/20/19 02/20/19 02/20/19 Range/Units 20:03 15:38 11:16 WBC (4.8-10.8) K/uL RBC (4.40-5.90) Mil/uL Hgb (12.0-18.0) g/dL Hct (35.0-51.0) % MCV (80.0-94.0) fl MCH (27.0-31.0) pg MCHC (33.0-37.0) g/dL RDW (11.5-14.5) % Plt Count (130-400) K/uL Sodium (132-148) mmol/l Potassium (3.6-5.0) MMOL/L Chloride (98-107) mmol/L Carbon Dioxide (22-30) mmol/L Anion Gap (10-20) BUN (9-20) mg/dl Creatinine (0.8-1.5) mg/dl Est GFR ( Amer) Est GFR (Non-Af Amer) POC Glucose (mg/dL) 152 H 167 H 154 H (65-110) mg/dL Random Glucose (75-110) mg/dL Calcium (8.4-10.2) mg/dL Total Bilirubin (0.2-1.3) mg/dl AST (17-59) U/L ALT (21-72) U/L Alkaline Phosphatase (38-126) U/L Total Protein (6.3-8.2) G/DL Albumin (3.5-5.0) g/dL Globulin (2.2-3.9) gm/dL Albumin/Globulin Ratio (1.0-2.1) 04/02/19/19 02/19/19 Range/Units 07:11 20:31 16:34 WBC (4.8-10.8) K/uL RBC (4.40-5.90) Mil/uL Hgb (12.0-18.0) g/dL Hct (35.0-51.0) % MCV (80.0-94.0) fl MCH (27.0-31.0) pg MCHC (33.0-37.0) g/dL RDW (11.5-14.5) % Plt Count (130-400) K/uL Sodium (132-148) mmol/l Potassium (3.6-5.0) MMOL/L Chloride (98-107) mmol/L Carbon Dioxide (22-30) mmol/L Anion Gap (10-20) BUN (9-20) mg/dl Creatinine (0.8-1.5) mg/dl Est GFR ( Amer) Est GFR (Non-Af Amer) POC Glucose (mg/dL) 92 141 H 152 H (65-110) mg/dL Random Glucose (75-110) mg/dL Calcium (8.4-10.2) mg/dL Total Bilirubin (0.2-1.3) mg/dl AST (17-59) U/L ALT (21-72) U/L Alkaline Phosphatase (38-126) U/L Total Protein (6.3-8.2) G/DL Albumin (3.5-5.0) g/dL Globulin (2.2-3.9) gm/dL Albumin/Globulin Ratio (1.0-2.1) Laboratory Results - last 24 hr 02/19/19 02/19/19 02/20/19 16:34 20:31 07:11 WBC RBC Hgb Hct MCV MCH MCHC RDW Plt Count Sodium Potassium Chloride Carbon Dioxide Anion Gap BUN Creatinine Est GFR ( Amer) Est GFR (Non-Af Amer) POC Glucose (mg/dL) 152 H 141 H 92 Random Glucose Calcium Total Bilirubin AST ALT Alkaline Phosphatase Total Protein Albumin Globulin Albumin/Globulin Ratio 02/20/19 02/20/19 02/20/19 11:16 15:38 20:03 WBC RBC Hgb Hct MCV MCH MCHC RDW Plt Count Sodium Potassium Chloride Carbon Dioxide Anion Gap BUN Creatinine Est GFR ( Amer) Est GFR (Non-Af Amer) POC Glucose (mg/dL) 154 H 167 H 152 H Random Glucose Calcium Total Bilirubin AST ALT Alkaline Phosphatase Total Protein Albumin Globulin Albumin/Globulin Ratio 02/21/19 02/21/19 02/21/19 05:10 05:32 05:32 WBC 3.4 L RBC 2.79 L Hgb 9.3 L Hct 28.8 L MCV 103.3 H MCH 33.2 H MCHC 32.1 L RDW 19.8 H Plt Count 50 L Sodium 135 Potassium 3.7 Chloride 102 Carbon Dioxide 31 H Anion Gap 6 L BUN 16 Creatinine 0.5 L Est GFR ( Amer) > 60 Est GFR (Non-Af Amer) > 60 POC Glucose (mg/dL) 108 Random Glucose 97 Calcium 8.5 Total Bilirubin 0.5 AST 30 ALT 49 Alkaline Phosphatase 52 Total Protein 5.1 L Albumin 2.8 L Globulin 2.3 Albumin/Globulin Ratio 1.2 Radiology Impressions: Radiology Impressions Chest X-Ray 02/20/19 09:01 IMPRESSION: No significant interval change compared to the prior examination(s). Fingerstick Blood Sugar Results: 108 Review of Systems - Cardiovascular Cardiovascular: absent: Chest Pain, Dyspnea - Respiratory Respiratory: Cough. absent: Dyspnea, Pain with Coughing - Gastrointestinal Gastrointestinal: absent: Abdominal Pain - Genitourinary Genitourinary: absent: Difficulty Urinating, Dysuria Critical Care Progress Note - Prophylaxis DVT Prophylaxis DVT: Lovenox - Nutrition Nutrition: Nutrition Category Date Time Status Heart Healthy Diet [DIET] Diets 02/15/19 Breakfast Active
--- NOTE | 2019-02-21 10:55 | CP.PCM.PN ---
<Bhanu Cooper - Last Filed: 02/21/19 11:21> Subjective - Date & Time of Evaluation Date of Evaluation: 02/21/19 Time of Evaluation: 08:55 - Subjective Subjective: Seen at bedside. Afebrile. In not acute distress. No acute events overnight. c/w daily o2 NC 4L and Bipap at night. No acute changes in urination or stools. Cough still present, productive but slightly improved. Appetite fair. Objective - Vital Signs/Intake and Output Vital Signs (last 24 hours): Temp Pulse Resp BP Pulse Ox 97.9 F 109 H 19 103/63 99 02/21/19 08:00 02/21/19 10:18 02/21/19 10:00 02/21/19 10:18 02/21/19 10:00 Intake and Output: 02/21/19 02/21/19 06:59 18:59 Intake Total 840 800 Output Total 1650 275 Balance -810 525 - Medications Medications: Current Medications Acetaminophen (Tylenol 325mg Tab) 650 mg PO Q6 PRN PRN Reason: Pain, Mild (1-3) Last Admin: 02/19/19 16:19 Dose: 650 mg Acetaminophen/Butalbital/Caffeine (Fioricet) 1 tab PO Q6 PRN PRN Reason: Headache Last Admin: 02/20/19 21:42 Dose: 1 tab Acetazolamide (Diamox 250 Mg Tab) 250 mg PO DAILY [facility] Last Admin: 02/21/19 08:22 Dose: 250 mg Acyclovir (Zovirax 5% Oint) 1 applic EXT QID [facility] Last Admin: 02/21/19 08:25 Dose: 1 applic Artificial Tears (Artificial Tears) 2 drop OU Q4 PRN PRN Reason: Dry eyes Last Admin: 02/20/19 21:32 Dose: 2 drop Atorvastatin Calcium (Lipitor) 20 mg PO HS [facility] Last Admin: 02/20/19 21:37 Dose: 20 mg Baclofen (Lioresal) 10 mg PO DAILY [facility] Last Admin: 02/21/19 08:24 Dose: 10 mg Docusate Sodium (Colace) 100 mg PO Q12 [facility] Last Admin: 02/21/19 08:21 Dose: 100 mg Enoxaparin Sodium (Lovenox) 40 mg SC DAILY [facility]; Protocol Famotidine (Pepcid) 20 mg PO BID [facility] Last Admin: 02/21/19 08:50 Dose: 20 mg Guaifenesin/Dextromethorphan (Robitussin Dm) 10 ml PO Q6 PRN PRN Reason: Cough Last Admin: 02/20/19 22:34 Dose: 10 ml Hydroxychloroquine Sulfate (Plaquenil) 200 mg PO DAILY ARTEMIO; Protocol Last Admin: 02/08/19 08:46 Dose: 200 mg Ciprofloxacin (Cipro 200mg/100ml D5w) 100 mls @ 100 mls/hr IVPB Q12 ARTEMIO; Protocol Last Admin: 02/21/19 08:21 Dose: 100 mls/hr Vancomycin HCl 1 gm/ Sodium (Chloride) 250 mls @ 166.667 mls/hr IVPB Q12 ARTEMIO; Protocol Last Admin: 02/21/19 08:25 Dose: 166.667 mls/hr Fluconazole (Diflucan Iv 200 Mg/100 Ml Ns) 100 mls @ 100 mls/hr IVPB DAILY ARTEMIO; Protocol Last Admin: 02/21/19 08:22 Dose: 100 mls/hr Meropenem 1 gm/ Sodium (Chloride) 100 mls @ 100 mls/hr IVPB Q8 ARTEMIO; Protocol Last Admin: 02/21/19 08:24 Dose: 100 mls/hr Insulin Human Regular (Humulin R) 0 units SC ACHS [facility]; Protocol Last Admin: 02/21/19 07:10 Dose: Not Given Ipratropium [place] (Atrovent) 0.5 mg IH RQID ARTEMIO Last Admin: 02/21/19 07:35 Dose: 0.5 mg Lactulose (Enulose) 20 gm PO DAILY PRN PRN Reason: Constipation Levalbuterol HCl (Xopenex) 1.25 mg INH RQ4 PRN PRN Reason: Shortness of Breath Last Admin: 02/19/19 07:49 Dose: 1.25 mg Lidocaine (Lidoderm) 2 ea TD DAILY [facility] Last Admin: 02/21/19 08:23 Dose: 2 ea Methylprednisolone (Medrol) 8 mg PO DAILY [facility] Last Admin: 02/21/19 08:24 Dose: 8 mg Montelukast Sodium (Singulair) 10 mg PO HS [facility] Last Admin: 02/20/19 21:40 Dose: 10 mg Polyethylene Glycol (Miralax) 17 gm PO HS [facility] Last Admin: 02/20/19 21:39 Dose: 17 gm Tamsulosin HCl (Flomax) 0.4 mg PO Q12 ARTEMIO Last Admin: 02/21/19 08:23 Dose: 0.4 mg Temazepam (Restoril) 15 mg PO HS PRN PRN Reason: Insomnia Last Admin: 02/20/19 21:46 Dose: 15 mg Verapamil HCl (Calan Tab) 80 mg PO Q8H ARTEMIO Last Admin: 02/21/19 10:18 Dose: 80 mg - Labs Labs: 02/21/19 05:32 02/21/19 05:32 PT 9.7 Seconds (9.8-13.1) L 02/03/19 19:35 INR 0.9 02/03/19 19:35 APTT 31.2 Seconds (25.6-37.1) 02/11/19 16:24 - Constitutional Appears: Non-toxic, Chronically Ill - Eye Exam Eye Exam: EOMI, PERRL - ENT Exam ENT Exam: Mucous Membranes Moist - Respiratory Exam Respiratory Exam: Rhonchi, NORMAL BREATHING PATTERN. absent: Respiratory Distr ess - Cardiovascular Exam Cardiovascular Exam: Irregular Rhythm, +S1, +S2. absent: Gallop - GI/Abdominal Exam GI & Abdominal Exam: Soft. absent: Tenderness - Extremities Exam Extremities Exam: absent: Calf Tenderness, Pedal Edema - Neurological Exam Neurological Exam: Alert, Awake, Oriented x3 - Psychiatric Exam Psychiatric exam: Normal Affect - Skin Skin Exam: Warm Assessment and Plan - Assessment and Plan (Free Text) Assessment: 73 year old male with h/o HF-rEF, COPD, RA, HLD, and paroxysmal atrial fibrillation admitted for acute COPD exacerbation with HCAP. 1. COPD exacerbation with Hypercapnia and Hypoxia -improved -hypercapnia resolved -methylprednisolone 8mg BID -pulmonary on board, Dr. Amaya, recommendations appreciated -treat underlying pneumonia, s/p Bronch showing mixed bacterial/fungal -c/w nightly BiPap and Daily O2 supplementation via NC -monitor vitals 2. HCAP -afebrile -Still productive cough but improved -blood cx negative -follow up additional sputum culture if possible -C/w with Meropenem/Vancomycin/Cipro as per ID -additionally Fluconazole added for fungal species on bronch -Keep vanco trough <15 -monitor CBC/vitals 3. Paroxysmal atrial fibrillation -stable. HR>100 at times -Verapamil 80mg IV Q8 -cardiac monitoring 4. HF-rEF -chronic/stable -EF: 50-55% -mild systolic dysfunction -echo done 02/07/19 5. Thrombocytopenia -held heparin and plaquenil -Hem/Onc on board, Dr. Diaz, recommendations appreciated -monitor for bleeding -trend platelets 6. Rheumatoid Arthritis -chronic -Hydroxychloroquine held 2/2 to thrombcytopenia -f/u Hem/onc recs 5.Diet -heart healthy 6. Prophylaxis -heparin held (thrombocytopenia) -SCDs 7. Code Status -full code <Ledy Renee - Last Filed: 02/21/19 16:04> Objective - Vital Signs/Intake and Output Vital Signs (last 24 hours): Temp Pulse Resp BP Pulse Ox 97.9 F 109 H 21 118/66 98 02/21/19 12:00 02/21/19 14:00 02/21/19 14:00 02/21/19 14:00 02/21/19 14:00 Intake and Output: 02/21/19 02/21/19 06:59 18:59 Intake Total 840 1650 Output Total 1650 400 Balance -810 1250 - Medications Medications: Current Medications Acetaminophen (Tylenol 325mg Tab) 650 mg PO Q6 PRN PRN Reason: Pain, Mild (1-3) Last Admin: 02/19/19 16:19 Dose: 650 mg Acetaminophen/Butalbital/Caffeine (Fioricet) 1 tab PO Q6 PRN PRN Reason: Headache Last Admin: 02/21/19 14:20 Dose: 1 tab Acetazolamide (Diamox 250 Mg Tab) 250 mg PO DAILY [facility] Last Admin: 02/21/19 08:22 Dose: 250 mg Acyclovir (Zovirax 5% Oint) 1 applic EXT QID [facility] Last Admin: 02/21/19 12:15 Dose: Not Given Artificial Tears (Artificial Tears) 2 drop OU Q4 PRN PRN Reason: Dry eyes Last Admin: 02/20/19 21:32 Dose: 2 drop Atorvastatin Calcium (Lipitor) 20 mg PO HS [facility] Last Admin: 02/20/19 21:37 Dose: 20 mg Baclofen (Lioresal) 10 mg PO DAILY [facility] Last Admin: 02/21/19 08:24 Dose: 10 mg Docusate Sodium (Colace) 100 mg PO Q12 [facility] Last Admin: 02/21/19 08:21 Dose: 100 mg Enoxaparin Sodium (Lovenox) 40 mg SC DAILY [facility]; Protocol Famotidine (Pepcid) 20 mg PO BID [facility] Last Admin: 02/21/19 08:50 Dose: 20 mg Guaifenesin/Dextromethorphan (Robitussin Dm) 10 ml PO Q6 PRN PRN Reason: Cough Last Admin: 02/20/19 22:34 Dose: 10 ml Hydroxychloroquine Sulfate (Plaquenil) 200 mg PO DAILY [facility]; Protocol Last Admin: 02/08/19 08:46 Dose: 200 mg Ciprofloxacin (Cipro 200mg/100ml D5w) 100 mls @ 100 mls/hr IVPB Q12 [facility]; Protocol Last Admin: 02/21/19 08:21 Dose: 100 mls/hr Vancomycin HCl 1 gm/ Sodium (Chloride) 250 mls @ 166.667 mls/hr IVPB Q12 [facility]; Protocol Last Admin: 02/21/19 08:25 Dose: 166.667 mls/hr Fluconazole (Diflucan Iv 200 Mg/100 Ml Ns) 100 mls @ 100 mls/hr IVPB DAILY [facility]; Protocol Last Admin: 02/21/19 08:22 Dose: 100 mls/hr Meropenem 1 gm/ Sodium (Chloride) 100 mls @ 100 mls/hr IVPB Q8 [facility]; Protocol Last Admin: 02/21/19 08:24 Dose: 100 mls/hr Insulin Human Regular (Humulin R) 0 units SC ACHS [facility]; Protocol Last Admin: 02/21/19 11:38 Dose: Not Given Ipratropium [place] (Atrovent) 0.5 mg IH RQID [facility] Last Admin: 02/21/19 15:08 Dose: 0.5 mg Lactulose (Enulose) 20 gm PO DAILY PRN PRN Reason: Constipation Levalbuterol HCl (Xopenex) 1.25 mg INH RQ4 PRN PRN Reason: Shortness of Breath Last Admin: 02/21/19 10:59 Dose: 1.25 mg Lidocaine (Lidoderm) 2 ea TD DAILY [facility] Last Admin: 02/21/19 08:23 Dose: 2 ea Methylprednisolone (Medrol) 8 mg PO DAILY [facility] Last Admin: 02/21/19 08:24 Dose: 8 mg Montelukast Sodium (Singulair) 10 mg PO HS [facility] Last Admin: 02/20/19 21:40 Dose: 10 mg Polyethylene Glycol (Miralax) 17 gm PO HS [facility] Last Admin: 02/20/19 21:39 Dose: 17 gm Tamsulosin HCl (Flomax) 0.4 mg PO Q12 [facility] Last Admin: 02/21/19 08:23 Dose: 0.4 mg Temazepam (Restoril) 15 mg PO HS PRN PRN Reason: Insomnia Last Admin: 02/20/19 21:46 Dose: 15 mg Verapamil HCl (Calan Tab) 80 mg PO Q8H [facility] Last Admin: 02/21/19 10:18 Dose: 80 mg - Labs Labs: 02/21/19 05:32 02/21/19 05:32 PT 9.7 Seconds (9.8-13.1) L 02/03/19 19:35 INR 0.9 02/03/19 19:35 APTT 31.2 Seconds (25.6-37.1) 02/11/19 16:24 Attending/Attestation - Attestation I have personally seen and examined this patient.: Yes I have fully participated in the care of the patient.: Yes I have reviewed all pertinent clinical information, including history, physical exam and plan: Yes Notes (Text): Acute on Chronic Respiratory Failure, Hypoxemic/Hypercapneic HCAP, bacterial COPD exacerbation Pancytopenia Paroxysmal A Fib/Flutter Rheumatoid Arthritis Chronic CHF, systolic, EF 50% Inguinal Hernia Pt is on 3-4 liters Oxygen per NC during the daytime and Bipap q hs cont IV Meropenem, Vanco, Cipro and Diflucan cont Duoneb tx, Diamox and PO Medrol Dr Amaya following pt closely Hold Hydrochloroquine due to pancytopenia monitor Platelets HR very labile, episodes of tachycardia , cont Verapamil , not a candidate for anticoagulation due to low Platelets ( 40 today) Surgical consult for hernia
[2019-02-21] MEDS: Levalbuterol 1.25 MG/3 ML Inhal Soln UD INH PRN (10:59)
[2019-02-21] MEDS: Apap-Butalbital-Caffeine 325-50-40mg Tab PO PRN ×2 (14:20→20:44)
[2019-02-21] MEDS: Enoxaparin 40 mg Syringe SC SCH (16:25)
--- NOTE | 2019-02-21 20:46 | CP.PCM.CON ---
<Ely Nuñez - Last Filed: 02/22/19 07:36> History of Present Illness - History of Present Illness History of Present Illness: General Surgery: Sandhu Patient is a 73M with PMH dementia, HTN, HLD< CAD, DM, KRISTOPHER, Pulmonary fibrosis, pneumonia, RA being treated at [facility] for pneumonia. Patient states he has had this hernia for many years and it very rarely bothers him. He admits to inter mittent pain with activity or straining but it resolves after reduction of the hernia which he is able to do manually. He denies any n/v, f/c, CP, stool changes and lower extremity pain/weakness. PMH: Alzheimer's Dementia; RA; CAD; DM insulin requiring; Hip fracture; HTN; HLD; Sleep Apnea; Pneumonia; Pulmonary Fibrosis PSH: Back surgery(T-Spine); CABG; Coronary stent; SH: Smokes Cigars; Former smoker of cigarettes, no illegal drug use FH: States: no known surgical hx Allergies: PCN Medication: Reviewed Past Patient History - Infectious Disease Hx of Infectious Diseases: None - Past Medical History & Family History Past Medical History?: Yes - Past Social History Smoking Status: Former Smoker Chewing Tobacco Use: No Cigar Use: Yes Alcohol: None Drugs: Denies - CARDIAC Hx Congestive Heart Failure: No Hx Hypercholesterolemia: Yes Hx Hypertension: Yes - PULMONARY Hx Asthma: Yes Hx Bronchitis: Yes Hx Chronic Obstructive Pulmonary Disease (COPD): Yes Hx Pneumonia: Yes Hx Sleep Apnea: Yes - NEUROLOGICAL Hx Alzheimer's Disease: Yes Hx Dementia: Yes Hx Seizures: No - HEENT Hx HEENT Problems: No - RENAL Hx Chronic Kidney Disease: No - ENDOCRINE/METABOLIC Hx Diabetes Mellitus Type 2: Yes - HEMATOLOGICAL/ONCOLOGICAL Hx Anemia: Yes - INTEGUMENTARY Hx Dermatological Problems: No - MUSCULOSKELETAL/RHEUMATOLOGICAL Hx Arthritis: Yes (BACK) Hx Back Pain: Yes Hx Fractures: Yes (Hip) Hx Rheumatoid Arthritis: Yes - GASTROINTESTINAL Hx Gastrointestinal Disorders: No - GENITOURINARY/GYNECOLOGICAL Hx Genitourinary Disorders: No Hx Sexually Transmitted Disorders: No - PSYCHIATRIC Hx Psychophysiologic Disorder: No Hx Substance Use: No - SURGICAL HISTORY Hx Coronary Artery Bypass Graft: Yes (1999) Hx Coronary Stent: Yes Hx Orthopedic Surgery: Yes - ANESTHESIA Hx Anesthesia: Yes Hx Anesthesia Reactions: No Hx Malignant Hyperthermia: No Meds Allergies/Adverse Reactions: Allergies Allergy/AdvReac Type Severity Reaction Status Date / Time Penicillins Allergy Unknown RASH Verified 02/06/19 12:56 - Medications Medications: Current Medications Acetaminophen (Tylenol 325mg Tab) 650 mg PO Q6 PRN PRN Reason: Pain, Mild (1-3) Last Admin: 02/19/19 16:19 Dose: 650 mg Acetaminophen/Butalbital/Caffeine (Fioricet) 1 tab PO Q6 PRN PRN Reason: Headache Last Admin: 02/21/19 14:20 Dose: 1 tab Acetazolamide (Diamox 250 Mg Tab) 250 mg PO DAILY [facility] Last Admin: 02/21/19 08:22 Dose: 250 mg Acyclovir (Zovirax 5% Oint) 1 applic EXT QID [facility] Last Admin: 02/21/19 16:27 Dose: 1 applic Artificial Tears (Artificial Tears) 2 drop OU Q4 PRN PRN Reason: Dry eyes Last Admin: 02/20/19 21:32 Dose: 2 drop Atorvastatin Cal[place] (Lipitor) 20 mg PO HS [facility] Last Admin: 02/20/19 21:37 Dose: 20 mg Baclofen (Lioresal) 10 mg PO DAILY [facility] Last Admin: 02/21/19 08:24 Dose: 10 mg Docusate Sodium (Colace) 100 mg PO Q12 [facility] Last Admin: 02/21/19 08:21 Dose: 100 mg Enoxaparin Sodium (Lovenox) 40 mg SC DAILY [facility]; Protocol Last Admin: 02/21/19 16:25 Dose: 40 mg Famotidine (Pepcid) 20 mg PO BID [facility] Last Admin: 02/21/19 16:28 Dose: 20 mg Guaifenesin/Dextromethorphan (Robitussin Dm) 10 ml PO Q6 PRN PRN Reason: Cough Last Admin: 02/20/19 22:34 Dose: 10 ml Hydroxychloroquine Sulfate (Plaquenil) 200 mg PO DAILY [facility]; Protocol Last Admin: 02/08/19 08:46 Dose: 200 mg Ciprofloxacin (Cipro 200mg/100ml D5w) 100 mls @ 100 mls/hr IVPB Q12 [facility]; Protocol Last Admin: 02/21/19 08:21 Dose: 100 mls/hr Vancomycin HCl 1 gm/ Sodium (Chloride) 250 mls @ 166.667 mls/hr IVPB Q12 [facility]; Protocol Last Admin: 02/21/19 08:25 Dose: 166.667 mls/hr Fluconazole (Diflucan Iv 200 Mg/100 Ml Ns) 100 mls @ 100 mls/hr IVPB DAILY [facility]; Protocol Last Admin: 02/21/19 08:22 Dose: 100 mls/hr Meropenem 1 gm/ Sodium (Chloride) 100 mls @ 100 mls/hr IVPB Q8 [facility]; Protocol Last Admin: 02/21/19 16:26 Dose: 100 mls/hr Insulin Human Regular (Humulin R) 0 units SC ACHS [facility]; Protocol Last Admin: 02/21/19 16:44 Dose: Not Given Ipratropium [place] (Atrovent) 0.5 mg IH RQID [facility] Last Admin: 02/21/19 19:18 Dose: 0.5 mg Lactulose (Enulose) 20 gm PO DAILY PRN PRN Reason: Constipation Levalbuterol HCl (Xopenex) 1.25 mg INH RQ4 PRN PRN Reason: Shortness of Breath Last Admin: 02/21/19 10:59 Dose: 1.25 mg Lidocaine (Lidoderm) 2 ea TD DAILY [facility] Last Admin: 02/21/19 08:23 Dose: 2 ea Methylprednisolone (Medrol) 8 mg PO DAILY [facility] Last Admin: 02/21/19 08:24 Dose: 8 mg Montelukast Sodium (Singulair) 10 mg PO HS [facility] Last Admin: 02/20/19 21:40 Dose: 10 mg Polyethylene Glycol (Miralax) 17 gm PO HS [facility] Last Admin: 02/20/19 21:39 Dose: 17 gm Tamsulosin HCl (Flomax) 0.4 mg PO Q12 [facility] Last Admin: 02/21/19 08:23 Dose: 0.4 mg Temazepam (Restoril) 15 mg PO HS PRN PRN Reason: Insomnia Last Admin: 02/20/19 21:46 Dose: 15 mg Verapamil HCl (Calan Tab) 80 mg PO Q8H [facility] Last Admin: 02/21/19 17:45 Dose: 80 mg Physical Exam - Constitutional Appears: Well, Non-toxic, No Acute Distress - Head Exam Head Exam: ATRAUMATIC, NORMOCEPHALIC - Eye Exam Eye Exam: EOMI - ENT Exam ENT Exam: Mucous Membranes Moist - Respiratory Exam Respiratory Exam: Rhonchi (bilaterally) - Cardiovascular Exam Cardiovascular Exam: REGULAR RHYTHM - GI/Abdominal Exam GI & Abdominal Exam: Hernia (right inguinal hernia, reducible), Soft. absent: Guarding, Rebound, Rigid, Tenderness - Extremities Exam Extremities exam: Negative for: calf tenderness, pedal edema - Neurological Exam Neurological exam: Alert, Oriented x3 - Psychiatric Exam Psychiatric exam: Normal Affect, Normal Mood - Skin Skin Exam: Dry, Intact, Normal Color, Warm Results - Vital Signs Recent Vital Signs: Last Vital Signs Temp 98.1 F 02/21/19 16:00 Pulse 115 H 02/21/19 18:00 Resp 24 02/21/19 18:00 BP 100/53 L 02/21/19 18:00 Pulse Ox 98 02/21/19 18:00 - Labs Result Diagrams: 02/22/19 04:55 02/22/19 04:55 Labs: Laboratory Results - last 24 hr 02/20/19 02/20/19 02/20/19 07:11 15:38 20:03 WBC RBC Hgb Hct MCV MCH MCHC RDW Plt Count Sodium Potassium Chloride Carbon Dioxide Anion Gap BUN Creatinine Est GFR ( Amer) Est GFR (Non-Af Amer) POC Glucose (mg/dL) 92 167 H 152 H Random Glucose Calcium Total Bilirubin AST ALT Alkaline Phosphatase Total Protein Albumin Globulin Albumin/Globulin Ratio 02/21/19 02/21/19 02/21/19 05:10 05:32 05:32 WBC 3.4 L RBC 2.79 L Hgb 9.3 L Hct 28.8 L MCV 103.3 H MCH 33.2 H MCHC 32.1 L RDW 19.8 H Plt Count 50 L Sodium 135 Potassium 3.7 Chloride 102 Carbon Dioxide 31 H Anion Gap 6 L BUN 16 Creatinine 0.5 L Est GFR ( Amer) > 60 Est GFR (Non-Af Amer) > 60 POC Glucose (mg/dL) 108 Random Glucose 97 Calcium 8.5 Total Bilirubin 0.5 AST 30 ALT 49 Alkaline Phosphatase 52 Total Protein 5.1 L Albumin 2.8 L Globulin 2.3 Albumin/Globulin Ratio 1.2 02/21/19 16:42 WBC RBC Hgb Hct MCV MCH MCHC RDW Plt Count Sodium Potassium Chloride Carbon Dioxide Anion Gap BUN Creatinine Est GFR ( Amer) Est GFR (Non-Af Amer) POC Glucose (mg/dL) 129 H Random Glucose Calcium Total Bilirubin AST ALT Alkaline Phosphatase Total Protein Albumin Globulin Albumin/Globulin Ratio Assessment & Plan - Assessment and Plan (Free Text) Assessment: 73 M with longstanding right inguinal hernia, soft and reducible Plan: - easily reducible, will obtain CT to ensure no bowel entrapment - pain control as needed - medical management of pneumonia per primary - no need for surgical intervention at this time - may consider outpatient follow up in the future for repair - discussed with Dr. Sy, PGY 1 - Date & Time Date: 02/21/19 <Srikanth Mohan - Last Filed: 02/22/19 08:04> Meds - Medications Medications: Current Medications Acetaminophen (Tylenol 325mg Tab) 650 mg PO Q6 PRN PRN Reason: Pain, Mild (1-3) Last Admin: 02/19/19 16:19 Dose: 650 mg Acetaminophen/Butalbital/Caffeine (Fioricet) 1 tab PO Q6 PRN PRN Reason: Headache Last Admin: 02/21/19 20:44 Dose: 1 tab Acetazolamide (Diamox 250 Mg Tab) 250 mg PO DAILY [facility] Last Admin: 02/21/19 08:22 Dose: 250 mg Acyclovir (Zovirax 5% Oint) 1 applic EXT QID [facility] Last Admin: 02/21/19 21:02 Dose: 1 applic Artificial Tears (Artificial Tears) 2 drop OU Q4 PRN PRN Reason: Dry eyes Last Admin: 02/20/19 21:32 Dose: 2 drop Atorvastatin Calcium (Lipitor) 20 mg PO HS [facility] Last Admin: 02/21/19 21:00 Dose: 20 mg Baclofen (Lioresal) 10 mg PO DAILY [facility] Last Admin: 02/21/19 08:24 Dose: 10 mg Docusate Sodium (Colace) 100 mg PO Q12 [facility] Last Admin: 02/21/19 20:43 Dose: 100 mg Enoxaparin Sodium (Lovenox) 40 mg SC DAILY [facility]; Protocol Last Admin: 02/21/19 16:25 Dose: 40 mg Famotidine (Pepcid) 20 mg PO BID [facility] Last Admin: 02/21/19 16:28 Dose: 20 mg Guaifenesin/Dextromethorphan (Robitussin Dm) 10 ml PO Q6 PRN PRN Reason: Cough Last Admin: 02/20/19 22:34 Dose: 10 ml Hydroxychloroquine Sulfate (Plaquenil) 200 mg PO DAILY [facility]; Protocol Last Admin: 02/08/19 08:46 Dose: 200 mg Ciprofloxacin (Cipro 200mg/100ml D5w) 100 mls @ 100 mls/hr IVPB Q12 [facility]; Protocol Last Admin: 02/21/19 20:47 Dose: 100 mls/hr Vancomycin HCl 1 gm/ Sodium (Chloride) 250 mls @ 166.667 mls/hr IVPB Q12 [facility]; Protocol Last Admin: 02/21/19 20:45 Dose: 166.667 mls/hr Fluconazole (Diflucan Iv 200 Mg/100 Ml Ns) 100 mls @ 100 mls/hr IVPB DAILY [facility]; Protocol Last Admin: 02/21/19 08:22 Dose: 100 mls/hr Meropenem 1 gm/ Sodium (Chloride) 100 mls @ 100 mls/hr IVPB Q8 [facility]; Protocol Last Admin: 02/22/19 00:34 Dose: 100 mls/hr Insulin Human Regular (Humulin R) 0 units SC ACHS [facility]; Protocol Last Admin: 02/21/19 21:03 Dose: Not Given Ipratropium [place] (Atrovent) 0.5 mg IH RQID [facility] Last Admin: 02/21/19 19:18 Dose: 0.5 mg Lactulose (Enulose) 20 gm PO DAILY PRN PRN Reason: Constipation Levalbuterol HCl (Xopenex) 1.25 mg INH RQ4 PRN PRN Reason: Shortness of Breath Last Admin: 02/21/19 10:59 Dose: 1.25 mg Lidocaine (Lidoderm) 2 ea TD DAILY [facility] Last Admin: 02/21/19 08:23 Dose: 2 ea Methylprednisolone (Medrol) 8 mg PO DAILY [facility] Last Admin: 02/21/19 08:24 Dose: 8 mg Montelukast Sodium (Singulair) 10 mg PO HS [facility] Last Admin: 02/21/19 21:00 Dose: 10 mg Polyethylene Glycol (Miralax) 17 gm PO HS [facility] Last Admin: 02/21/19 21:01 Dose: 17 gm Tamsulosin HCl (Flomax) 0.4 mg PO Q12 [facility] Last Admin: 02/21/19 20:44 Dose: 0.4 mg Temazepam (Restoril) 15 mg PO HS PRN PRN Reason: Insomnia Last Admin: 02/21/19 22:20 Dose: 15 mg Verapamil HCl (Calan Tab) 80 mg PO Q8H [facility] Last Admin: 02/22/19 03:06 Dose: 80 mg Results - Vital Signs Recent Vital Signs: Last Vital Signs Temp 97.6 F 02/22/19 04:00 Pulse 85 02/22/19 06:00 Resp 22 02/22/19 06:00 BP 129/51 L 02/22/19 06:00 Pulse Ox 100 02/22/19 06:00 - Labs Result Diagrams: 02/22/19 04:55 02/22/19 04:55 Labs: Laboratory Results - last 24 hr 02/20/19 02/21/19 02/21/19 07:11 16:42 20:41 WBC RBC Hgb Hct MCV MCH MCHC RDW Plt Count MPV Neut % (Auto) Lymph % (Auto) [place] % (Auto) Eos % (Auto) Baso % (Auto) Neut # (Auto) Lymph # (Auto) [place] # (Auto) Eos # (Auto) Baso # (Auto) Sodium Potassium Chloride Carbon Dioxide Anion Gap BUN Creatinine Est GFR ( Amer) Est GFR (Non-Af Amer) POC Glucose (mg/dL) 92 129 H 138 H Random Glucose Calcium 02/22/19 02/22/19 02/22/19 04:55 04:55 05:54 WBC 3.4 L RBC 2.73 L Hgb 9.0 L Hct 28.2 L MCV 103.3 H MCH 32.8 H MCHC 31.7 L RDW 20.3 H Plt Count 48 L MPV 11.0 Neut % (Auto) 42.3 L Lymph % (Auto) 37.4 [place] % (Auto) 19.9 H Eos % (Auto) 0.1 Baso % (Auto) 0.3 Neut # (Auto) 1.5 L Lymph # (Auto) 1.3 [place] # (Auto) 0.7 Eos # (Auto) 0.0 Baso # (Auto) 0.0 Sodium 137 Potassium 3.9 Chloride 101 Carbon Dioxide 32 H Anion Gap 8 L BUN 14 Creatinine 0.6 L Est GFR ( Amer) > 60 Est GFR (Non-Af Amer) > 60 POC Glucose (mg/dL) 71 Random Glucose 80 Calcium 8.5 Assessment & Plan - Assessment and Plan (Free Text) Plan: All medical record entries made by the resident were at my direction. I have reviewed the chart and agree that the record accurately reflects my personal performance of the history, physical exam, and medical decision making.
[2019-02-21] MEDS: POLYETHYLENE GLYCOL 3350 17 GM/Dose PACKET PO SCH (21:01)
--- NOTE | 2019-02-21 22:23 | PN ---
DATE: 02/21/2019 SUBJECTIVE: The patient denies chest pain. He complains of right groin pain. He is currently in sinus tachycardia with frequent APCs. PHYSICAL EXAMINATION: VITAL SIGNS: Blood pressure 116/88, heart rate 109, temperature 97.9, and respirations 21. HEENT: Pale conjunctivae. CHEST: Bilateral rhonchi. HEART: S1 and S2, regular. EXTREMITIES: Trace leg edema. LABORATORY DATA: Today's hemoglobin and hematocrit 9.3 and 28.8, white count 3.4, and platelet count 50,000. Today's SMA-7: Sodium 135, potassium 3.7, chloride 102, CO2 of 31, glucose 97, BUN 16, and creatinine 0.5. ASSESSMENT: 1. Chronic obstructive lung disease. 2. Coronary artery disease, status post coronary artery bypass surgery. 3. Paroxysmal atrial fibrillation, atrial flutter. 4. Acute runs of multifocal atrial tachycardia. 5. Thrombocytopenia, anemia and leukopenia. 6. Consider right inguinal hernia. 7. Pneumonia. 8. Rheumatoid arthritis. RECOMMENDATIONS: Continue current Atrovent inhaler 0.5 mg q.i.d. Continue Calan 80 mg every 8 hours, Diamox 250 mg once a day, Lipitor 20 mg once a day. The patient was resumed on Lovenox 40 mg subcutaneously daily today by the getterer. Continue IV meropenem 1 g every 8 hours, Plaquenil 200 mg daily, vancomycin 1 g intravenous every 12 hours. Geo Whitmore MD
[2019-02-22] MEDS: Meropenem 1 GM in Sodium Chloride 0.9% 100 ML IVPB SCH ×3 (00:34→17:16)
[2019-02-22 05:09] LABS: BASO % 0.3 % (0.0-2.0); EOS % 0.1 % (0.0-4.0); LYMPH # 1.3 K/uL (1.0-4.3); LYMPH % 37.4 % (20.0-40.0); MEAN CELL VOLUME 103.3 fl (80.0-94.0); MEAN CORPUSCULAR HEMOGLOBIN 32.8 pg (27.0-31.0); MEAN CORPUSCULAR HGB CONC 31.7 g/dL (33.0-37.0); MONO # 0.7 K/uL (0.0-0.8); MONO % 19.9 % (0.0-10.0); NEUT # 1.5 K/uL (1.8-7.0); NEUT % 42.3 % (50.0-75.0); NRBC % 0.3 % (0.0-0.0); RBC 2.73 Mil/uL (4.40-5.90); RED CELL DISTRIBUTION WIDTH 20.3 % (11.5-14.5); WHITE BLOOD COUNT 3.4 K/uL (4.8-10.8)
[2019-02-22 05:16] LABS: BLOOD UREA NITROGEN 14 mg/dl (9-20); CALCIUM 8.5 mg/dL (8.4-10.2); GFR NON-AFRICAN AMERICAN > 60
[2019-02-22] MEDS ORDERED: Iohexol 240 (50 ml) PO ONE (05:49)
--- NOTE | 2019-02-22 07:09 | CP.PCM.PN ---
<Jaleel Leiva - Last Filed: 02/22/19 10:16> Subjective - Date & Time of Evaluation Date of Evaluation: 02/22/19 Time of Evaluation: 07:09 - Subjective Subjective: Surgery Progress Note- Dr. Mondragon Patient seen and examined at bedside. On BIPAP last night, currently on Venti- mask. + Flatus and BM. RIH easily reducible at bedside. continued management per ICu team Objective - Vital Signs/Intake and Output Vital Signs (last 24 hours): Temp Pulse Resp BP Pulse Ox 97.6 F 85 22 129/51 L 100 02/22/19 04:00 02/22/19 06:00 02/22/19 06:00 02/22/19 06:00 02/22/19 06:00 Intake and Output: 02/22/19 02/22/19 06:59 18:59 Intake Total 550 Output Total 400 Balance 150 - Medications Medications: Current Medications Acetaminophen (Tylenol 325mg Tab) 650 mg PO Q6 PRN PRN Reason: Pain, Mild (1-3) Last Admin: 02/19/19 16:19 Dose: 650 mg Acetaminophen/Butalbital/Caffeine (Fioricet) 1 tab PO Q6 PRN PRN Reason: Headache Last Admin: 02/21/19 20:44 Dose: 1 tab Acetazolamide (Diamox 250 Mg Tab) 250 mg PO DAILY [facility] Last Admin: 02/21/19 08:22 Dose: 250 mg Acyclovir (Zovirax 5% Oint) 1 applic EXT QID [facility] Last Admin: 02/21/19 21:02 Dose: 1 applic Artificial Tears (Artificial Tears) 2 drop OU Q4 PRN PRN Reason: Dry eyes Last Admin: 02/20/19 21:32 Dose: 2 drop Atorvastatin Calcium (Lipitor) 20 mg PO HS [facility] Last Admin: 02/21/19 21:00 Dose: 20 mg Baclofen (Lioresal) 10 mg PO DAILY [facility] Last Admin: 02/21/19 08:24 Dose: 10 mg Docusate Sodium (Colace) 100 mg PO Q12 [facility] Last Admin: 02/21/19 20:43 Dose: 100 mg Enoxaparin Sodium (Lovenox) 40 mg SC DAILY [facility]; Protocol Last Admin: 02/21/19 16:25 Dose: 40 mg Famotidine (Pepcid) 20 mg PO BID [facility] Last Admin: 02/21/19 16:28 Dose: 20 mg Guaifenesin/Dextromethorphan (Robitussin Dm) 10 ml PO Q6 PRN PRN Reason: Cough Last Admin: 02/20/19 22:34 Dose: 10 ml Hydroxychloroquine Sulfate (Plaquenil) 200 mg PO DAILY [facility]; Protocol Last Admin: 02/08/19 08:46 Dose: 200 mg Ciprofloxacin (Cipro 200mg/100ml D5w) 100 mls @ 100 mls/hr IVPB Q12 [facility]; Protocol Last Admin: 02/21/19 20:47 Dose: 100 mls/hr Vancomycin HCl 1 gm/ Sodium (Chloride) 250 mls @ 166.667 mls/hr IVPB Q12 [facility]; Protocol Last Admin: 02/21/19 20:45 Dose: 166.667 mls/hr Fluconazole (Diflucan Iv 200 Mg/100 Ml Ns) 100 mls @ 100 mls/hr IVPB DAILY [facility]; Protocol Last Admin: 02/21/19 08:22 Dose: 100 mls/hr Meropenem 1 gm/ Sodium (Chloride) 100 mls @ 100 mls/hr IVPB Q8 [facility]; Protocol Last Admin: 02/22/19 00:34 Dose: 100 mls/hr Insulin Human Regular (Humulin R) 0 units SC ACHS [facility]; Protocol Last Admin: 02/21/19 21:03 Dose: Not Given Ipratropium [place] (Atrovent) 0.5 mg IH RQID [facility] Last Admin: 02/21/19 19:18 Dose: 0.5 mg Lactulose (Enulose) 20 gm PO DAILY PRN PRN Reason: Constipation Levalbuterol HCl (Xopenex) 1.25 mg INH RQ4 PRN PRN Reason: Shortness of Breath Last Admin: 02/21/19 10:59 Dose: 1.25 mg Lidocaine (Lidoderm) 2 ea TD DAILY [facility] Last Admin: 02/21/19 08:23 Dose: 2 ea Methylprednisolone (Medrol) 8 mg PO DAILY [facility] Last Admin: 02/21/19 08:24 Dose: 8 mg Montelukast Sodium (Singulair) 10 mg PO HS [facility] Last Admin: 02/21/19 21:00 Dose: 10 mg Polyethylene Glycol (Miralax) 17 gm PO HS [facility] Last Admin: 02/21/19 21:01 Dose: 17 gm Tamsulosin HCl (Flomax) 0.4 mg PO Q12 [facility] Last Admin: 02/21/19 20:44 Dose: 0.4 mg Temazepam (Restoril) 15 mg PO HS PRN PRN Reason: Insomnia Last Admin: 02/21/19 22:20 Dose: 15 mg Verapamil HCl (Calan Tab) 80 mg PO Q8H [facility] Last Admin: 02/22/19 03:06 Dose: 80 mg - Labs Labs: 02/22/19 04:55 02/22/19 04:55 PT 9.7 Seconds (9.8-13.1) L 02/03/19 19:35 INR 0.9 02/03/19 19:35 APTT 31.2 Seconds (25.6-37.1) 02/11/19 16:24 - Constitutional Appears: Non-toxic, No Acute Distress, Older Than Stated Age - Head Exam Head Exam: ATRAUMATIC - Eye Exam Eye Exam: EOMI - ENT Exam ENT Exam: Mucous Membranes Moist - Respiratory Exam Respiratory Exam: Rhonchi, Wheezes, NORMAL BREATHING PATTERN. absent: Accessory Muscle Use, Respiratory Distress - Cardiovascular Exam Cardiovascular Exam: Tachycardia, REGULAR RHYTHM. absent: Bradycardia - GI/Abdominal Exam GI & Abdominal Exam: Soft, Hernia (Right Inguinal Hernia). absent: Distended, Firm, Guarding, Rigid, Tenderness - Neurological Exam Neurological Exam: Alert, Awake, Oriented x3 - Psychiatric Exam Psychiatric exam: Normal Affect - Skin Skin Exam: Intact, Warm Assessment and Plan - Assessment and Plan (Free Text) Assessment: 73M admitted for PNA, surgery consulted for reducible R inguinal hernia Plan: - Obtain CT scan - will need medical optimization prior to surgical intervention - once medically stable will schedule for Hernia repair - pain control PRN - continued management per Critical Care team - no acute surgical intervention at this time - discussed with Dr. Hammer PGY2 <Srikanth Mohan - Last Filed: 02/24/19 14:05> Objective - Vital Signs/Intake and Output Vital Signs (last 24 hours): Temp Pulse Resp BP Pulse Ox 97.5 F L 97 H 20 119/63 95 02/24/19 08:46 02/24/19 11:00 02/24/19 08:46 02/24/19 11:00 02/24/19 08:46 Intake and Output: 02/24/19 02/24/19 06:59 18:59 Output Total 200 Balance -200 - Medications Medications: Current Medications Acetaminophen (Tylenol 325mg Tab) 650 mg PO Q6 PRN PRN Reason: Pain, Mild (1-3) Last Admin: 02/24/19 09:19 Dose: 650 mg Acetaminophen/Butalbital/Caffeine (Fioricet) 1 tab PO Q6 PRN PRN Reason: Headache Last Admin: 02/23/19 15:05 Dose: 1 tab Acetazolamide (Diamox 250 Mg Tab) 250 mg PO DAILY [facility] Last Admin: 02/24/19 08:40 Dose: 250 mg Artificial Tears (Artificial Tears) 2 drop OU Q4 PRN PRN Reason: Dry eyes Last Admin: 02/23/19 08:52 Dose: 2 drop Atorvastatin [place] (Lipitor) 20 mg PO HS [facility] Last Admin: 02/23/19 21:34 Dose: 20 mg Baclofen (Lioresal) 10 mg PO DAILY [facility] Last Admin: 02/24/19 08:44 Dose: 10 mg Docusate Sodium (Colace) 100 mg PO Q12 [facility] Last Admin: 02/24/19 08:41 Dose: Not Given Famotidine (Pepcid) 20 mg PO BID [facility] Last Admin: 02/24/19 08:40 Dose: 20 mg Guaifenesin/Dextromethorphan (Robitussin Dm) 10 ml PO Q6 PRN PRN Reason: Cough Last Admin: 02/24/19 11:59 Dose: 10 ml Hydroxychloroquine Sulfate (Plaquenil) 200 mg PO DAILY [facility]; Protocol Last Admin: 02/24/19 08:44 Dose: 200 mg Fluconazole (Diflucan Iv 200 Mg/100 Ml Ns) 100 mls @ 100 mls/hr IVPB DAILY [facility]; Protocol Last Admin: 02/24/19 11:35 Dose: 100 mls/hr Meropenem 1 gm/ Sodium (Chloride) 100 mls @ 100 mls/hr IVPB Q8 [facility]; Protocol Last Admin: 02/24/19 09:20 Dose: 100 mls/hr Trimethoprim/Sulfamethoxazole (300 mg/ Dextrose) 500 mls @ 250 mls/hr IVPB Q8@0700,1500,2300 [facility]; Protocol Last Admin: 02/24/19 10:15 Dose: 250 mls/hr Insulin Human Regular (Humulin R) 0 units SC ACHS [facility]; Protocol Last Admin: 02/24/19 13:43 Dose: Not Given Ipratropium [place] (Atrovent) 0.5 mg IH RQID [facility] Last Admin: 02/24/19 11:04 Dose: 0.5 mg Lactulose (Enulose) 20 gm PO DAILY PRN PRN Reason: Constipation Lactulose (Enulose) 20 gm PO Q4 [facility] Last Admin: 02/24/19 13:43 Dose: Not Given Levalbuterol HCl (Xopenex) 1.25 mg INH RQ4 PRN PRN Reason: Shortness of Breath Last Admin: 02/23/19 11:33 Dose: 1.25 mg Lidocaine (Lidoderm) 2 ea TD DAILY [facility] Last Admin: 02/24/19 08:42 Dose: 2 ea Methylprednisolone (Medrol) 4 mg PO DAILY [facility] Last Admin: 02/24/19 08:41 Dose: 4 mg Montelukast Sodium (Singulair) 10 mg PO HS [facility] Last Admin: 02/23/19 21:36 Dose: 10 mg Polyethylene Glycol (Miralax) 17 gm PO HS [facility] Last Admin: 02/23/19 21:36 Dose: Not Given Tamsulosin HCl (Flomax) 0.4 mg PO Q12 [facility] Last Admin: 02/24/19 08:41 Dose: 0.4 mg Verapamil HCl (Calan Tab) 80 mg PO Q8H [facility] Last Admin: 02/24/19 11:00 Dose: 80 mg - Labs Labs: 02/23/19 04:35 02/23/19 04:35 PT 9.7 Seconds (9.8-13.1) L 02/03/19 19:35 INR 0.9 02/03/19 19:35 APTT 31.2 Seconds (25.6-37.1) 02/11/19 16:24 Assessment and Plan - Assessment and Plan (Free Text) Plan: All medical record entries made by the resident were at my direction. I have reviewed the chart and agree that the record accurately reflects my personal performance of the history, physical exam, and medical decision making.
[2019-02-22] MEDS: Ipratropium 0.02% Inhal Soln (0.5 mg/2.5 ml) UD IH SCH ×4 (08:04→19:22)
[2019-02-22] MEDS: Acyclovir 5% OINT 15 APPLIC/15 GM EXT SCH ×4 (08:41→21:32)
[2019-02-22] MEDS: Ciprofloxacin 200mg/100ml D5W 100 ML IVPB SCH ×2 (08:44→20:41)
[2019-02-22] MEDS: Insulin Regular 100 units/ml SC SCH ×4 (08:48→21:32)
--- NOTE | 2019-02-22 09:58 | CP.PCM.PN ---
Subjective - Date & Time of Evaluation Date of Evaluation: 02/22/19 Time of Evaluation: 09:49 - Subjective Subjective: Seen on rounds in the ICU. Awake and alert, cooperative with exam. Interim events and recent EMR entries reviewed. Labs noted, last CXR was two days ago. Has been seen by surgery because of a right inguinal hernia which became painful yesterday after straining to get up. He was placed in the left lateral decubitus position and coached to cough deeply. This was productive of a moderate amount of very thick mucoid sputum. He was instructed how to continue doing this repeatedly during the day when he is in bed. On exam the trachea is displaced towards the right. There is dullness on percussion over most of the right hemithorax. Bronchial breath sounds are heard in the upper/posterior right chest. There are coarse rhonchi heard on the right with coughing. Scattered rhonchi and few medium rales are present on the left. He continues to have paroxysmal tachyarrhythmias throughout tjhe day. Oxygenation is good with nasal canula as well as overnight BiPAP. Prognosis becomes more poor with continued atelectasis and airways plugging. He has been told to follow instructions for position and cough throughout the day. The mucous expectorated is a significant improvement from the purulent material seen on bronchoscopy. Cough assist device appears ineffective, better outcome with the above therapy. Objective - Vital Signs/Intake and Output Vital Signs (last 24 hours): Temp Pulse Resp BP Pulse Ox 97.5 F L 109 H 20 113/71 95 02/22/19 08:00 02/22/19 08:00 02/22/19 08:00 02/22/19 08:00 02/22/19 08:00 Intake and Output: 02/21/19 02/22/19 23:59 11:59 Intake Total 1999 250 Output Total 425 200 Balance 1575 50 - Medications Medications: Current Medications Acetaminophen (Tylenol 325mg Tab) 650 mg PO Q6 PRN PRN Reason: Pain, Mild (1-3) Last Admin: 02/19/19 16:19 Dose: 650 mg Acetaminophen/Butalbital/Caffeine (Fioricet) 1 tab PO Q6 PRN PRN Reason: Headache Last Admin: 02/21/19 20:44 Dose: 1 tab Acetazolamide (Diamox 250 Mg Tab) 250 mg PO DAILY [facility] Last Admin: 02/21/19 08:22 Dose: 250 mg Acyclovir (Zovirax 5% Oint) 1 applic EXT QID [facility] Last Admin: 02/22/19 08:41 Dose: Not Given Artificial Tears (Artificial Tears) 2 drop OU Q4 PRN PRN Reason: Dry eyes Last Admin: 02/20/19 21:32 Dose: 2 drop Atorvastatin Calcium (Lipitor) 20 mg PO HS [facility] Last Admin: 02/21/19 21:00 Dose: 20 mg Baclofen (Lioresal) 10 mg PO DAILY [facility] Last Admin: 02/21/19 08:24 Dose: 10 mg Docusate Sodium (Colace) 100 mg PO Q12 [facility] Last Admin: 02/21/19 20:43 Dose: 100 mg Enoxaparin Sodium (Lovenox) 40 mg SC DAILY [facility]; Protocol Last Admin: 02/21/19 16:25 Dose: 40 mg Famotidine (Pepcid) 20 mg PO BID [facility] Last Admin: 02/22/19 08:31 Dose: 20 mg Guaifenesin/Dextromethorphan (Robitussin Dm) 10 ml PO Q6 PRN PRN Reason: Cough Last Admin: 02/20/19 22:34 Dose: 10 ml Hydroxychloroquine Sulfate (Plaquenil) 200 mg PO DAILY [facility]; Protocol Last Admin: 02/08/19 08:46 Dose: 200 mg Ciprofloxacin (Cipro 200mg/100ml D5w) 100 mls @ 100 mls/hr IVPB Q12 [facility]; Protocol Last Admin: 02/22/19 08:44 Dose: 100 mls/hr Vancomycin HCl 1 gm/ Sodium (Chloride) 250 mls @ 166.667 mls/hr IVPB Q12 [facility]; Protocol Last Admin: 02/22/19 08:38 Dose: 166.667 mls/hr Fluconazole (Diflucan Iv 200 Mg/100 Ml Ns) 100 mls @ 100 mls/hr IVPB DAILY [facility]; Protocol Last Admin: 02/21/19 08:22 Dose: 100 mls/hr Meropenem 1 gm/ Sodium (Chloride) 100 mls @ 100 mls/hr IVPB Q8 [facility]; Protocol Last Admin: 02/22/19 08:35 Dose: 100 mls/hr Insulin Human Regular (Humulin R) 0 units SC ACHS [facility]; Protocol Last Admin: 02/22/19 08:48 Dose: Not Given Ipratropium [place] (Atrovent) 0.5 mg IH RQID [facility] Last Admin: 02/22/19 08:04 Dose: 0.5 mg Lactulose (Enulose) 20 gm PO DAILY PRN PRN Reason: Constipation Levalbuterol HCl (Xopenex) 1.25 mg INH RQ4 PRN PRN Reason: Shortness of Breath Last Admin: 02/21/19 10:59 Dose: 1.25 mg Lidocaine (Lidoderm) 2 ea TD DAILY [facility] Last Admin: 02/21/19 08:23 Dose: 2 ea Methylprednisolone (Medrol) 8 mg PO DAILY [facility] Last Admin: 02/21/19 08:24 Dose: 8 mg Montelukast Sodium (Singulair) 10 mg PO HS [facility] Last Admin: 02/21/19 21:00 Dose: 10 mg Polyethylene Glycol (Miralax) 17 gm PO HS [facility] Last Admin: 02/21/19 21:01 Dose: 17 gm Tamsulosin HCl (Flomax) 0.4 mg PO Q12 [facility] Last Admin: 02/21/19 20:44 Dose: 0.4 mg Temazepam (Restoril) 15 mg PO HS PRN PRN Reason: Insomnia Last Admin: 02/21/19 22:20 Dose: 15 mg Verapamil HCl (Calan Tab) 80 mg PO Q8H [facility] Last Admin: 02/22/19 03:06 Dose: 80 mg - Labs Labs: 02/22/19 04:55 02/22/19 04:55 PT 9.7 Seconds (9.8-13.1) L 02/03/19 19:35 INR 0.9 02/03/19 19:35 APTT 31.2 Seconds (25.6-37.1) 02/11/19 16:24 Assessment and Plan (1) Pneumonia Status: Acute (2) Acute on chronic respiratory failure with hypoxemia Status: Chronic (3) Hypercapnic respiratory failure Status: Chronic (4) Mucus plugging of bronchi Status: Suspected
[2019-02-22] MEDS: Lidocaine 5% Patch TD SCH (10:17)
[2019-02-22] MEDS: Fluconazole IV 200mg/100 ml NS 100 ML IVPB SCH (10:17)
--- NOTE | 2019-02-22 10:30 | CP.CCUPN ---
<Farzaneh Knutson - Last Filed: 02/22/19 14:07> CCU Subjective - Physician Review Subjective (Free Text): No acute overnight events, remains on BIPAP at night, on O2 via NC. Endorsing shoulder pain b/l, breathing remains the same Tolerating sitting up in bed and working with PT in room Heart rate ranges from 90-140's, and O2 97-100% Assessment/Plan: 1. Acute on chronic respiratory failure, Hypoxia/hypercapnia -Improving, cont on O2 via NC 2. HCAP -ID on board, c/w Vanc, John, cipro per ID -BAL sig for emile, c/w Diflucan 3. COPD, acute on chronic -improving, c/w Bipap overnight -c.w Xopenex, singular, per Pulmo started on steroid PO daily (D2 today) 4. Paroxysmal A fib, MAT -likely 2.2 to chronic COPD -controlled, rate 80's-110's -c/w Veramapril 5. RA, chronic -will restarted hydroxychloroquine given symptoms and no response on platelets when stopped -Lidoderm patches 6. pancytopenia, chronic -Hem/onc on board -stable 7. DVT prophylx -given pts current status, hx of malignancy and immobility will start Lovenox SC -benefit of Lovenox outweigh the risks -platelets remain stable, no acute drop this AM 8. R abdominal hernia -Surgery consulted -CT abd and pelvis today 9. PT/OT -encourage OOB to chair CCU Objective - Vital Signs / Intake & Output Vital Signs (Last 4 hours): Vital Signs Temp Pulse Resp BP Pulse Ox 02/22/19 08:00 97.5 F L 109 H 20 113/71 95 Intake and Output (Last 8hrs): Intake & Output 02/21/19 02/22/19 02/22/19 22:59 06:59 14:59 Intake Total 1150 250 Output Total 300 200 Balance 850 50 Intake: Intake, Piggyback 200 250 Oral 950 Output: Urine 300 200 Urine, Voided 300 200 - Physical Exam Head: Positive for: Atraumatic, Normocephalic Pupils: Positive for: PERRL Extroacular Muscles: Positive for: EOMI Conjunctiva: Positive for: Normal. Negative for: Injected, Icteric Mouth: Positive for: Moist Mucous Membranes Nose (External): Positive for: Other (NC on ) Nose (Internal): Positive for: Normal Inspection Neck: Positive for: Normal Range of Motion, Trachea Midline. Negative for: Meningeal Signs, MIDLINE TENDERNESS, Paraspinal Tenderness, JVD, Lymphadenopathy, Bruit, Other Respiratory/Chest: Positive for: Decreased Breath Sounds, Rhonchi (b/l on the lower lobes ), Other (course breath sounds b/l ). Negative for: Respiratory Distress, Accessory Muscle Use, Wheezes, Rales, Tachypneic Cardiovascular: Positive for: Irregular Rhythm, Tachycardic Abdomen: Positive for: Normal Bowel Sounds, Hernias (R side, reducible, no skin changes, NT ). Negative for: Tenderness, Distention Upper Extremity: Positive for: Normal Inspection, Other (contracted fingers ) Lower Extremity: Positive for: Normal Inspection, Edema (mild edema in the lower ext b/l ), Other (Moving all ext, SCDs on b/l lower ext) Psychiatric: Positive for: Alert - Medications Active Medications: Active Medications Generic Name Dose Route Start Last Admin Trade Name Freq PRN Reason Stop Dose Admin Acetaminophen 650 mg 02/03/19 23:28 02/19/19 16:19 Tylenol 325mg Tab PO 650 mg Q6 PRN Administration Pain, Mild (1-3) Acetaminophen/Butalbital/Caffeine 1 tab 02/20/19 08:32 02/21/19 20:44 Fioricet PO 1 tab Q6 PRN Administration Headache Acetazolamide 250 mg 02/18/19 09:30 02/21/19 08:22 Diamox 250 Mg Tab PO 250 mg DAILY [facility] Administration Acyclovir 1 applic 02/04/19 09:00 02/22/19 08:41 Zovirax 5% Oint EXT Not Given QID [facility] Artificial Tears 2 drop 02/14/19 09:52 02/20/19 21:32 Artificial Tears OU 2 drop Q4 PRN Administration Dry eyes Atorvastatin Calcium 20 mg 02/04/19 22:00 02/21/19 21:00 Lipitor PO 20 mg HS [facility] Administration Baclofen 10 mg 02/04/19 09:00 02/21/19 08:24 Lioresal PO 10 mg DAILY [facility] Administration Docusate Sodium 100 mg 02/04/19 09:00 02/21/19 20:43 Colace PO 100 mg Q12 [facility] Administration Enoxaparin Sodium 40 mg 02/21/19 10:30 02/21/19 16:25 Lovenox SC 40 mg DAILY [facility] Administration Protocol Famotidine 20 mg 02/04/19 09:00 02/22/19 08:31 Pepcid PO 20 mg BID [facility] Administration Guaifenesin/Dextromethorphan 10 ml 02/20/19 21:59 02/20/19 22:34 Robitussin Dm PO 10 ml Q6 PRN Administration Cough Hydroxychloroquine Sulfate 200 mg 02/04/19 09:00 02/08/19 08:46 Plaquenil PO 200 mg DAILY [facility] Administration Protocol Ciprofloxacin 100 mls @ 100 mls/hr 02/17/19 21:00 02/22/19 08:44 Cipro 200mg/100ml D5w IVPB 100 mls/hr Q12 [facility] Administration Protocol Vancomycin HCl 1 gm/ Sodium 250 mls @ 166.667 mls/hr 02/17/19 21:00 02/22/19 08:38 Chloride IVPB 166.667 mls/hr Q12 [facility] Administration Protocol Fluconazole 100 mls @ 100 mls/hr 02/19/19 15:00 02/21/19 08:22 Diflucan Iv 200 Mg/100 Ml Ns IVPB 100 mls/hr DAILY [facility] Administration Protocol Meropenem 1 gm/ Sodium 100 mls @ 100 mls/hr 02/20/19 20:45 02/22/19 08:35 Chloride IVPB 100 mls/hr Q8 [facility] Administration Protocol Insulin Human Regular 0 units 02/04/19 07:30 02/22/19 08:48 Humulin R SC Not Given ACHS [facility] Protocol Ipratropium [place] 0.5 mg 02/11/19 22:00 02/22/19 08:04 Atrovent IH 0.5 mg RQID [facility] Administration Lactulose 20 gm 02/04/19 13:54 Enulose PO DAILY PRN Constipation Levalbuterol HCl 1.25 mg 02/11/19 20:52 02/21/19 10:59 Xopenex INH 1.25 mg RQ4 PRN Administration Shortness of Breath Lidocaine 2 ea 02/20/19 12:30 02/21/19 08:23 Lidoderm TD 2 ea DAILY [facility] Administration Methylprednisolone 8 mg 02/21/19 09:00 02/21/19 08:24 Medrol PO 8 mg DAILY [facility] Administration Montelukast Sodium 10 mg 02/04/19 22:00 02/21/19 21:00 Singulair PO 10 mg HS [facility] Administration Polyethylene Glycol 17 gm 02/12/19 22:00 02/21/19 21:01 Miralax PO 17 gm HS [facility] Administration Tamsulosin HCl 0.4 mg 02/04/19 21:00 02/21/19 20:44 Flomax PO 0.4 mg Q12 [facility] Administration Temazepam 15 mg 02/14/19 21:27 02/21/19 22:20 Restoril PO 15 mg HS PRN Administration Insomnia Verapamil HCl 80 mg 02/19/19 10:45 02/22/19 03:06 Calan Tab PO 80 mg Q8H [facility] Administration - Patient Studies Lab Studies: Lab Studies 02/22/19 02/22/19 02/22/19 Range/Units 05:54 04:55 04:55 WBC 3.4 L (4.8-10.8) K/uL RBC 2.73 L (4.40-5.90) Mil/uL Hgb 9.0 L (12.0-18.0) g/dL Hct 28.2 L (35.0-51.0) % MCV 103.3 H (80.0-94.0) fl MCH 32.8 H (27.0-31.0) pg MCHC 31.7 L (33.0-37.0) g/dL RDW 20.3 H (11.5-14.5) % Plt Count 48 L (130-400) K/uL MPV 11.0 (7.2-11.7) fl Neut % (Auto) 42.3 L (50.0-75.0) % Lymph % (Auto) 37.4 (20.0-40.0) % [place] % (Auto) 19.9 H (0.0-10.0) % Eos % (Auto) 0.1 (0.0-4.0) % Baso % (Auto) 0.3 (0.0-2.0) % Neut # (Auto) 1.5 L (1.8-7.0) K/uL Lymph # (Auto) 1.3 (1.0-4.3) K/uL [place] # (Auto) 0.7 (0.0-0.8) K/uL Eos # (Auto) 0.0 (0.0-0.7) K/uL Baso # (Auto) 0.0 (0.0-0.2) K/uL Sodium 137 (132-148) mmol/l Potassium 3.9 (3.6-5.0) MMOL/L Chloride 101 (98-107) mmol/L Carbon Dioxide 32 H (22-30) mmol/L Anion Gap 8 L (10-20) BUN 14 (9-20) mg/dl Creatinine 0.6 L (0.8-1.5) mg/dl Est GFR ( Amer) > 60 Est GFR (Non-Af Amer) > 60 POC Glucose (mg/dL) 71 (65-110) mg/dL Random Glucose 80 (75-110) mg/dL Calcium 8.5 (8.4-10.2) mg/dL 02/21/19 02/21/19 Range/Units 20:41 16:42 WBC (4.8-10.8) K/uL RBC (4.40-5.90) Mil/uL Hgb (12.0-18.0) g/dL Hct (35.0-51.0) % MCV (80.0-94.0) fl MCH (27.0-31.0) pg MCHC (33.0-37.0) g/dL RDW (11.5-14.5) % Plt Count (130-400) K/uL MPV (7.2-11.7) fl Neut % (Auto) (50.0-75.0) % Lymph % (Auto) (20.0-40.0) % [place] % (Auto) (0.0-10.0) % Eos % (Auto) (0.0-4.0) % Baso % (Auto) (0.0-2.0) % Neut # (Auto) (1.8-7.0) K/uL Lymph # (Auto) (1.0-4.3) K/uL [place] # (Auto) (0.0-0.8) K/uL Eos # (Auto) (0.0-0.7) K/uL Baso # (Auto) (0.0-0.2) K/uL Sodium (132-148) mmol/l Potassium (3.6-5.0) MMOL/L Chloride (98-107) mmol/L Carbon Dioxide (22-30) mmol/L Anion Gap (10-20) BUN (9-20) mg/dl Creatinine (0.8-1.5) mg/dl Est GFR ( Amer) Est GFR (Non-Af Amer) POC Glucose (mg/dL) 138 H 129 H (65-110) mg/dL Random Glucose (75-110) mg/dL Calcium (8.4-10.2) mg/dL Laboratory Results - last 24 hr 02/21/19 02/21/19 02/22/19 16:42 20:41 04:55 WBC 3.4 L RBC 2.73 L Hgb 9.0 L Hct 28.2 L MCV 103.3 H MCH 32.8 H MCHC 31.7 L RDW 20.3 H Plt Count 48 L MPV 11.0 Neut % (Auto) 42.3 L Lymph % (Auto) 37.4 [place] % (Auto) 19.9 H Eos % (Auto) 0.1 Baso % (Auto) 0.3 Neut # (Auto) 1.5 L Lymph # (Auto) 1.3 [place] # (Auto) 0.7 Eos # (Auto) 0.0 Baso # (Auto) 0.0 Sodium Potassium Chloride Carbon Dioxide Anion Gap BUN Creatinine Est GFR ( Amer) Est GFR (Non-Af Amer) POC Glucose (mg/dL) 129 H 138 H Random Glucose Calcium 02/22/19 02/22/19 04:55 05:54 WBC RBC Hgb Hct MCV MCH MCHC RDW Plt Count MPV Neut % (Auto) Lymph % (Auto) [place] % (Auto) Eos % (Auto) Baso % (Auto) Neut # (Auto) Lymph # (Auto) [place] # (Auto) Eos # (Auto) Baso # (Auto) Sodium 137 Potassium 3.9 Chloride 101 Carbon Dioxide 32 H Anion Gap 8 L BUN 14 Creatinine 0.6 L Est GFR ( Amer) > 60 Est GFR (Non-Af Amer) > 60 POC Glucose (mg/dL) 71 Random Glucose 80 Calcium 8.5 Fingerstick Blood Sugar Results: 71 Critical Care Progress Note - Prophylaxis DVT Prophylaxis DVT: Lovenox - Nutrition Nutrition: Nutrition Category Date Time Status Heart Healthy Diet [DIET] Diets 02/15/19 Breakfast Active <Lester Barcenasn - Last Filed: 02/22/19 17:45> Assessment/Plan - Assessment and Plan (Free Text) Plan: Attestation: Patient seen and examined at the bedside with Resident Dr. Loli Knutson; and I agree with her outline of plans and management documented above as discussed on AM rounds; reflecting my review of all applicable clinical data, and participation in the care of the patient throughout the day in ICU; today, February 22, 2019.
[2019-02-22] MEDS: Enoxaparin 40 mg Syringe SC SCH (12:56)
--- NOTE | 2019-02-22 17:36 | PN ---
DATE: 02/22/2019 SUBJECTIVE: The patient is still experiencing shortness of breath and productive cough. He is currently in sinus tachycardia with frequent APCs with runs of multifocal atrial tachycardia. PHYSICAL EXAMINATION: VITAL SIGNS: Blood pressure 119/62, heart rate 140, temperature 97.5, respirations 29. HEENT: Pale conjunctivae. CHEST: Bibasilar coarse crepitations. HEART: S1 and S2 regular. ABDOMEN: Soft. EXTREMITIES: No edema. LABORATORY DATA: Today's hemoglobin and hematocrit are 9 and 28.2, white count 3.4. Today's platelet count is 48,000. ASSESSMENT: 1. Exacerbation of chronic obstructive lung disease. 2. Right inguinal hernia. 3. Pneumonia and pleural effusion, status post bronchoscopy and the removal of mucus plugs. 4. Paroxysmal atrial fibrillation and atrial flutter. 5. Multifocal atrial tachycardia. 6. Anemia. 7. Coronary artery disease, status post coronary artery bypass surgery. RECOMMENDATIONS: Continue verapamil at 80 q.8 hours., Atrovent inhaler four times a day, Diamox 250 mg once a day, Lipitor 20 mg once a day, Lovenox 40 mg subcutaneously daily as long as it is approved by [employer]. Continue IV meropenem at 1 g q.8 hours., and IV vancomycin 1 g q.12 hours. Consider repeating chest CT scan without contrast. Geo Whitmore MD
--- NOTE | 2019-02-22 18:22 | PQF ---
PROVIDER RESPONSE TEXT: To be completed by PMD REVIEWER QUERY TEXT: Documentation Clarification Physician?s Documentation Request This Form is Not a Permanent Document in the Medical Record Pt Name: KAMLESH FELTON MR #: [id number] Payor: MEDICARE PART A Unit/Bed: H.ICU/CCU-H422-1 Adm Date: 02/03/2019 9:31:00 PM Reviewer: Payal Patel Ext. Query Date: 02/21/2019 11:13:00 AM Documentation Clarification [id number] By submitting this query, we are merely seeking further clarification of documentation to accurately reflect all conditions that you are monitoring, evaluating, treating or that extend the hospitalizati on or utilize additional resources of care. Please utilize your independent clinical judgment when ad dressing the question(s) below. Dear Doctor Geo Whitmore, The patient?s Clinical Indicators include: PN 02/15/19 and 02/16/19 with the diagnosis of digitalis overdose. Digoxin level 3.4. Your help is requested in clarifying the following clinical documentation, if you can please further specify in the medical record and discharge summary. PN 02/15/19 and 02/16/19 with the diagnosis of digitalis overdose. Please clarify if this is a digitalis overdose: poisoning ( medication taken incorrectly ) versus ad verse reaction ( drug toxicity) with elevated digoxin level. PLEASE DOCUMENT ANY ADDITIONAL DIAGNOSES AND/OR SPECIFICITY IN THE PROGRESS NOTES AND/OR DISCHARGE LOCO [facility]. Clinically unable to determine/unknown Disagree with the above request Need to discuss Query created by: Payal Patel on 02/21/2019 11:13 AM Electronically signed by: Geo Whitmore MD 02/22/2019 6:20 PM
[2019-02-22] MEDS: guaiFENesin DM 200 mg-20 mg/10 ml UD PO PRN (20:27)
[2019-02-22] MEDS: POLYETHYLENE GLYCOL 3350 17 GM/Dose PACKET PO SCH (21:09)
--- NOTE | 2019-02-22 21:43 | CP.PCM.PN ---
Subjective - Date & Time of Evaluation Date of Evaluation: 02/21/19 Time of Evaluation: 12:00 - Subjective Subjective: No complaints. Objective - Vital Signs/Intake and Output Vital Signs (last 24 hours): Temp Pulse Resp BP Pulse Ox 98.1 F 99 H 20 110/69 97 02/22/19 19:49 02/22/19 21:37 02/22/19 19:49 02/22/19 20:28 02/22/19 19:49 Intake and Output: 02/22/19 02/23/19 18:59 06:59 Intake Total 710 Balance 710 - Medications Medications: Current Medications Acetaminophen (Tylenol 325mg Tab) 650 mg PO Q6 PRN PRN Reason: Pain, Mild (1-3) Last Admin: 02/22/19 10:21 Dose: 650 mg Acetaminophen/Butalbital/Caffeine (Fioricet) 1 tab PO Q6 PRN PRN Reason: Headache Last Admin: 02/21/19 20:44 Dose: 1 tab Acetazolamide (Diamox 250 Mg Tab) 250 mg PO DAILY [facility] Last Admin: 02/22/19 10:16 Dose: 250 mg Acyclovir (Zovirax 5% Oint) 1 applic EXT QID [facility] Last Admin: 02/22/19 21:32 Dose: Not Given Artificial Tears (Artificial Tears) 2 drop OU Q4 PRN PRN Reason: Dry eyes Last Admin: 02/20/19 21:32 Dose: 2 drop Atorvastatin Calcium (Lipitor) 20 mg PO HS [facility] Last Admin: 02/22/19 21:09 Dose: 20 mg Baclofen (Lioresal) 10 mg PO DAILY [facility] Last Admin: 02/22/19 10:16 Dose: 10 mg Docusate Sodium (Colace) 100 mg PO Q12 [facility] Last Admin: 02/22/19 20:41 Dose: 100 mg Enoxaparin Sodium (Lovenox) 40 mg SC DAILY [facility]; Protocol Last Admin: 02/22/19 12:56 Dose: 40 mg Famotidine (Pepcid) 20 mg PO BID [facility] Last Admin: 02/22/19 17:22 Dose: 20 mg Guaifenesin/Dextromethorphan (Robitussin Dm) 10 ml PO Q6 PRN PRN Reason: Cough Last Admin: 02/22/19 20:27 Dose: 10 ml Hydroxychloroquine Sulfate (Plaquenil) 200 mg PO DAILY [facility]; Protocol Last Admin: 02/22/19 10:15 Dose: 200 mg Ciprofloxacin (Cipro 200mg/100ml D5w) 100 mls @ 100 mls/hr IVPB Q12 [facility]; Protocol Last Admin: 02/22/19 20:41 Dose: 100 mls/hr Vancomycin HCl 1 gm/ Sodium (Chloride) 250 mls @ 166.667 mls/hr IVPB Q12 [facility]; Protocol Last Admin: 02/22/19 20:48 Dose: 166.667 mls/hr Fluconazole (Diflucan Iv 200 Mg/100 Ml Ns) 100 mls @ 100 mls/hr IVPB DAILY [facility]; Protocol Last Admin: 02/22/19 10:17 Dose: 100 mls/hr Meropenem 1 gm/ Sodium (Chloride) 100 mls @ 100 mls/hr IVPB Q8 [facility]; Protocol Last Admin: 02/22/19 17:16 Dose: 100 mls/hr Insulin Human Regular (Humulin R) 0 units SC ACHS [facility]; Protocol Last Admin: 02/22/19 21:32 Dose: Not Given Ipratropium [place] (Atrovent) 0.5 mg IH RQID [facility] Last Admin: 02/22/19 19:22 Dose: 0.5 mg Lactulose (Enulose) 20 gm PO DAILY PRN PRN Reason: Constipation Lactulose (Enulose) 20 gm PO Q4 [facility] Last Admin: 02/22/19 20:40 Dose: 20 gm Levalbuterol HCl (Xopenex) 1.25 mg INH RQ4 PRN PRN Reason: Shortness of Breath Last Admin: 02/21/19 10:59 Dose: 1.25 mg Lidocaine (Lidoderm) 2 ea TD DAILY [facility] Last Admin: 02/22/19 10:17 Dose: Not Given Methylprednisolone (Medrol) 8 mg PO DAILY [facility] Last Admin: 02/22/19 14:35 Dose: 8 mg Montelukast Sodium (Singulair) 10 mg PO HS [facility] Last Admin: 02/22/19 21:08 Dose: 10 mg Polyethylene Glycol (Miralax) 17 gm PO HS [facility] Last Admin: 02/22/19 21:09 Dose: 17 gm Tamsulosin HCl (Flomax) 0.4 mg PO Q12 [facility] Last Admin: 02/22/19 21:09 Dose: 0.4 mg Temazepam (Restoril) 15 mg PO HS PRN PRN Reason: Insomnia Last Admin: 02/22/19 20:41 Dose: 15 mg Verapamil HCl (Calan Tab) 80 mg PO Q8H [facility] Last Admin: 02/22/19 20:28 Dose: 80 mg - Labs Labs: 02/22/19 04:55 02/22/19 04:55 PT 9.7 Seconds (9.8-13.1) L 02/03/19 19:35 INR 0.9 02/03/19 19:35 APTT 31.2 Seconds (25.6-37.1) 02/11/19 16:24 - Head Exam Head Exam: ATRAUMATIC - Eye Exam Eye Exam: Normal appearance - ENT Exam ENT Exam: Mucous Membranes Dry - Respiratory Exam Respiratory Exam: Decreased Breath Sounds - GI/Abdominal Exam GI & Abdominal Exam: Normal Bowel Sounds Assessment and Plan (1) Pancytopenia Assessment & Plan: prior improvement in cytopenias when holding hydroxychloroquine; on hold WBC and H/H improved, plt downtrending - heparin on hold normal iron/b12/folate stores transfusion support PRN Status: Acute (2) Pancreatic mass Assessment & Plan: prior elevation in chromogranin A level; repeated ?neuroendocrine tumor not a good surgical candidate, will cont. to monitor Status: Acute
--- NOTE | 2019-02-22 21:47 | CP.PCM.PN ---
Subjective - Date & Time of Evaluation Date of Evaluation: 02/22/19 Time of Evaluation: 12:00 - Subjective Subjective: No complaints, seen sitting in the chair. Objective - Vital Signs/Intake and Output Vital Signs (last 24 hours): Temp Pulse Resp BP Pulse Ox 98.1 F 99 H 20 110/69 97 02/22/19 19:49 02/22/19 21:37 02/22/19 19:49 02/22/19 20:28 02/22/19 19:49 Intake and Output: 02/22/19 02/23/19 18:59 06:59 Intake Total 710 Balance 710 - Medications Medications: Current Medications Acetaminophen (Tylenol 325mg Tab) 650 mg PO Q6 PRN PRN Reason: Pain, Mild (1-3) Last Admin: 02/22/19 10:21 Dose: 650 mg Acetaminophen/Butalbital/Caffeine (Fioricet) 1 tab PO Q6 PRN PRN Reason: Headache Last Admin: 02/21/19 20:44 Dose: 1 tab Acetazolamide (Diamox 250 Mg Tab) 250 mg PO DAILY [facility] Last Admin: 02/22/19 10:16 Dose: 250 mg Acyclovir (Zovirax 5% Oint) 1 applic EXT QID [facility] Last Admin: 02/22/19 21:32 Dose: Not Given Artificial Tears (Artificial Tears) 2 drop OU Q4 PRN PRN Reason: Dry eyes Last Admin: 02/20/19 21:32 Dose: 2 drop Atorvastatin Calcium (Lipitor) 20 mg PO HS [facility] Last Admin: 02/22/19 21:09 Dose: 20 mg Baclofen (Lioresal) 10 mg PO DAILY [facility] Last Admin: 02/22/19 10:16 Dose: 10 mg Docusate Sodium (Colace) 100 mg PO Q12 [facility] Last Admin: 02/22/19 20:41 Dose: 100 mg Enoxaparin Sodium (Lovenox) 40 mg SC DAILY [facility]; Protocol Last Admin: 02/22/19 12:56 Dose: 40 mg Famotidine (Pepcid) 20 mg PO BID [facility] Last Admin: 02/22/19 17:22 Dose: 20 mg Guaifenesin/Dextromethorphan (Robitussin Dm) 10 ml PO Q6 PRN PRN Reason: Cough Last Admin: 02/22/19 20:27 Dose: 10 ml Hydroxychloroquine Sulfate (Plaquenil) 200 mg PO DAILY [facility]; Protocol Last Admin: 02/22/19 10:15 Dose: 200 mg Ciprofloxacin (Cipro 200mg/100ml D5w) 100 mls @ 100 mls/hr IVPB Q12 [facility]; Protocol Last Admin: 02/22/19 20:41 Dose: 100 mls/hr Vancomycin HCl 1 gm/ Sodium (Chloride) 250 mls @ 166.667 mls/hr IVPB Q12 [facility]; Protocol Last Admin: 02/22/19 20:48 Dose: 166.667 mls/hr Fluconazole (Diflucan Iv 200 Mg/100 Ml Ns) 100 mls @ 100 mls/hr IVPB DAILY [facility]; Protocol Last Admin: 02/22/19 10:17 Dose: 100 mls/hr Meropenem 1 gm/ Sodium (Chloride) 100 mls @ 100 mls/hr IVPB Q8 [facility]; Protocol Last Admin: 02/22/19 17:16 Dose: 100 mls/hr Insulin Human Regular (Humulin R) 0 units SC ACHS [facility]; Protocol Last Admin: 02/22/19 21:32 Dose: Not Given Ipratropium [place] (Atrovent) 0.5 mg IH RQID [facility] Last Admin: 02/22/19 19:22 Dose: 0.5 mg Lactulose (Enulose) 20 gm PO DAILY PRN PRN Reason: Constipation Lactulose (Enulose) 20 gm PO Q4 [facility] Last Admin: 02/22/19 20:40 Dose: 20 gm Levalbuterol HCl (Xopenex) 1.25 mg INH RQ4 PRN PRN Reason: Shortness of Breath Last Admin: 02/21/19 10:59 Dose: 1.25 mg Lidocaine (Lidoderm) 2 ea TD DAILY [facility] Last Admin: 02/22/19 10:17 Dose: Not Given Methylprednisolone (Medrol) 8 mg PO DAILY [facility] Last Admin: 02/22/19 14:35 Dose: 8 mg Montelukast Sodium (Singulair) 10 mg PO HS [facility] Last Admin: 02/22/19 21:08 Dose: 10 mg Polyethylene Glycol (Miralax) 17 gm PO HS [facility] Last Admin: 02/22/19 21:09 Dose: 17 gm Tamsulosin HCl (Flomax) 0.4 mg PO Q12 [facility] Last Admin: 02/22/19 21:09 Dose: 0.4 mg Temazepam (Restoril) 15 mg PO HS PRN PRN Reason: Insomnia Last Admin: 02/22/19 20:41 Dose: 15 mg Verapamil HCl (Calan Tab) 80 mg PO Q8H [facility] Last Admin: 02/22/19 20:28 Dose: 80 mg - Labs Labs: 02/22/19 04:55 02/22/19 04:55 PT 9.7 Seconds (9.8-13.1) L 02/03/19 19:35 INR 0.9 02/03/19 19:35 APTT 31.2 Seconds (25.6-37.1) 02/11/19 16:24 - Head Exam Head Exam: ATRAUMATIC - Eye Exam Eye Exam: Normal appearance - ENT Exam ENT Exam: Mucous Membranes Dry - Respiratory Exam Respiratory Exam: Decreased Breath Sounds - Cardiovascular Exam Cardiovascular Exam: +S1, +S2 - GI/Abdominal Exam GI & Abdominal Exam: Normal Bowel Sounds Assessment and Plan (1) Pancytopenia Assessment & Plan: prior improvement in cytopenias when holding hydroxychloroquine; on hold WBC and H/H improved, plt downtrending - heparin held normal iron/b12/folate stores transfusion support PRN Status: Acute (2) Pancreatic mass Assessment & Plan: prior elevation in chromogranin A level; repeated ?neuroendocrine tumor not a good surgical candidate, will cont. to monitor Status: Acute
[2019-02-23] MEDS: Meropenem 1 GM in Sodium Chloride 0.9% 100 ML IVPB SCH ×3 (00:01→17:53)
[2019-02-23 05:20] LABS: BASO % 0.4 % (0.0-2.0); HEMOGLOBIN 9.5 g/dL (12.0-18.0); LYMPH % 30.2 % (20.0-40.0); MEAN CELL VOLUME 104.9 fl (80.0-94.0); MEAN CORPUSCULAR HEMOGLOBIN 32.8 pg (27.0-31.0); MEAN CORPUSCULAR HGB CONC 31.3 g/dL (33.0-37.0); MEAN PLATELET VOLUME 10.1 fl (7.2-11.7); MONO # 0.6 K/uL (0.0-0.8); MONO % 18.3 % (0.0-10.0); NEUT # 1.7 K/uL (1.8-7.0); NEUT % 51.1 % (50.0-75.0); NRBC % 0.4 % (0.0-0.0); RBC 2.9 Mil/uL (4.40-5.90); RED CELL DISTRIBUTION WIDTH 20.6 % (11.5-14.5); WHITE BLOOD COUNT 3.2 K/uL (4.8-10.8)
[2019-02-23 05:33] LABS: BLOOD UREA NITROGEN 14 mg/dl (9-20); CALCIUM 8.7 mg/dL (8.4-10.2); GFR NON-AFRICAN AMERICAN > 60
[2019-02-23] MEDS: guaiFENesin DM 200 mg-20 mg/10 ml UD PO PRN ×2 (06:39→18:48)
[2019-02-23] MEDS: Levalbuterol 1.25 MG/3 ML Inhal Soln UD INH PRN ×2 (07:47→11:33)
[2019-02-23] MEDS: Ipratropium 0.02% Inhal Soln (0.5 mg/2.5 ml) UD IH SCH ×4 (07:48→19:01)
--- NOTE | 2019-02-23 08:20 | PN ---
DATE: 02/22/2019 SUBJECTIVE: The patient is seen today, 02/22/2019. He is still having exertional shortness of breath. OBJECTIVE: VITAL SIGNS: Blood pressure is 110/69, temperature 98.1, respiratory rate 20, and pulse 99. HEENT: Pupils equal and reactive to light. Normal-appearing mucosa of the conjunctivae, oropharynx, and nasal membrane mucosa. NECK: Supple. No JVD. No carotid bruit. No lymph node. No thyromegaly. CHEST AND LUNGS: Bilateral scattered rhonchi. CARDIOVASCULAR SYSTEM: PMI not localized. S1, S2. No additional sounds. ABDOMEN: Decreased bowel sounds. No tenderness, no organomegaly. No masses. EXTREMITIES: No cyanosis, no clubbing, no edema. Positive advanced rheumatoid arthritis. Deformity in both upper extremities. CENTRAL NERVOUS SYSTEM: Alert, awake, oriented x2, and moves all extremities equally. ASSESSMENT: Hypercapnic respiratory failure, pneumonia, supraventricular tachycardia. Differential diagnosis multifocal atrial tachycardia versus atrial fibrillation. PLAN: Continue current IV antibiotics and taper steroids as tolerated. Continue the verapamil. Michaela Wood MD
[2019-02-23] MEDS: Insulin Regular 100 units/ml SC SCH ×4 (08:24→22:11)
[2019-02-23] MEDS: Artificial Tears Opht Soln OU PRN (08:52)
[2019-02-23] MEDS: Ciprofloxacin 200mg/100ml D5W 100 ML IVPB SCH (08:54)
[2019-02-23] MEDS: Fluconazole IV 200mg/100 ml NS 100 ML IVPB SCH (08:54)
[2019-02-23] MEDS: Enoxaparin 40 mg Syringe SC SCH (08:58)
[2019-02-23] MEDS: Lidocaine 5% Patch TD SCH (09:00)
[2019-02-23] MEDS: Acyclovir 5% OINT 15 APPLIC/15 GM EXT SCH ×4 (09:03→17:52)
--- NOTE | 2019-02-23 10:06 | CP.PCM.PN ---
Subjective - Date & Time of Evaluation Date of Evaluation: 02/23/19 Time of Evaluation: 10:04 - Subjective Subjective: Patient is seen in telemetry this morning. He is lying semi-supine in bed, coughing productively. He was placed in left lateral decubitus position and coached to cough again this morning. He was able to expectorate a moderate amount of cream-colored mucoid sputum. His vital signs remain stable, he continues to be afebrile and well oxygenated. His breathing seems slightly less labored, he speaks in full sentences more readily. He continues to use the BiPAP mask ventilator overnight and nasal canula during the day. Labs are fairly stable, but the platelets have dropped to 42 this morning. Today's chest x-ray; left basal scattered increased markings, but visible hemidiaphragm. RLL consolidation still present. Air entry seems a little better in the right posteriorly, but medium rales are still heard. left side air entry is fair with rhonchi and medium rales as well. No audible wheezes on either side. No bronchial breath sounds. Dullness to percussion still present in the right base. Continue cough assist (he claims that a while AFTER using this he begins to expectorate. Sputum culture reported Stenotrophomonas maltophilia. ID to be advised of this. Will reduce medrol to 4MG PO daily starting tomorrow. Continue ipratropium via neb on QID schedule; reserve beta adrenergic for PRN use only. Objective - Vital Signs/Intake and Output Vital Signs (last 24 hours): Temp Pulse Resp BP Pulse Ox 98.0 F 67 18 110/61 94 L 02/23/19 07:45 02/23/19 10:00 02/23/19 07:45 02/23/19 10:00 02/23/19 07:45 Intake and Output: 02/22/19 02/23/19 23:59 11:59 Intake Total 160 Balance 160 - Medications Medications: Current Medications Acetaminophen (Tylenol 325mg Tab) 650 mg PO Q6 PRN PRN Reason: Pain, Mild (1-3) Last Admin: 02/22/19 10:21 Dose: 650 mg Acetaminophen/Butalbital/Caffeine (Fioricet) 1 tab PO Q6 PRN PRN Reason: Headache Last Admin: 02/21/19 20:44 Dose: 1 tab Acetazolamide (Diamox 250 Mg Tab) 250 mg PO DAILY [facility] Last Admin: 02/23/19 08:56 Dose: 250 mg Acyclovir (Zovirax 5% Oint) 1 applic EXT QID [facility] Last Admin: 02/23/19 09:26 Dose: Not Given Artificial Tears (Artificial Tears) 2 drop OU Q4 PRN PRN Reason: Dry eyes Last Admin: 02/23/19 08:52 Dose: 2 drop Atorvastatin Calcium (Lipitor) 20 mg PO HS [facility] Last Admin: 02/22/19 21:09 Dose: 20 mg Baclofen (Lioresal) 10 mg PO DAILY [facility] Last Admin: 02/23/19 09:00 Dose: 10 mg Docusate Sodium (Colace) 100 mg PO Q12 [facility] Last Admin: 02/23/19 08:58 Dose: 100 mg Enoxaparin Sodium (Lovenox) 40 mg SC DAILY [facility]; Protocol Last Admin: 02/23/19 08:58 Dose: 40 mg Famotidine (Pepcid) 20 mg PO BID [facility] Last Admin: 02/23/19 08:57 Dose: 20 mg Guaifenesin/Dextromethorphan (Robitussin Dm) 10 ml PO Q6 PRN PRN Reason: Cough Last Admin: 02/23/19 06:39 Dose: 10 ml Hydroxychloroquine Sulfate (Plaquenil) 200 mg PO DAILY [facility]; Protocol Last Admin: 02/23/19 08:57 Dose: 200 mg Ciprofloxacin (Cipro 200mg/100ml D5w) 100 mls @ 100 mls/hr IVPB Q12 [facility]; Protocol Last Admin: 02/23/19 08:54 Dose: 100 mls/hr Vancomycin HCl 1 gm/ Sodium (Chloride) 250 mls @ 166.667 mls/hr IVPB Q12 [facility]; Protocol Last Admin: 02/23/19 08:53 Dose: 166.667 mls/hr Fluconazole (Diflucan Iv 200 Mg/100 Ml Ns) 100 mls @ 100 mls/hr IVPB DAILY [facility]; Protocol Last Admin: 02/23/19 08:54 Dose: 100 mls/hr Meropenem 1 gm/ Sodium (Chloride) 100 mls @ 100 mls/hr IVPB Q8 [facility]; Protocol Last Admin: 02/23/19 09:02 Dose: 100 mls/hr Insulin Human Regular (Humulin R) 0 units SC ACHS [facility]; Protocol Last Admin: 02/23/19 08:24 Dose: Not Given Ipratropium [place] (Atrovent) 0.5 mg IH RQID [facility] Last Admin: 02/23/19 07:48 Dose: 0.5 mg Lactulose (Enulose) 20 gm PO DAILY PRN PRN Reason: Constipation Lactulose (Enulose) 20 gm PO Q4 [facility] Last Admin: 02/23/19 09:25 Dose: Not Given Levalbuterol HCl (Xopenex) 1.25 mg INH RQ4 PRN PRN Reason: Shortness of Breath Last Admin: 02/23/19 07:47 Dose: 1.25 mg Lidocaine (Lidoderm) 2 ea TD DAILY [facility] Last Admin: 02/23/19 09:00 Dose: 2 ea Methylprednisolone (Medrol) 8 mg PO DAILY [facility] Last Admin: 02/23/19 08:57 Dose: 8 mg Montelukast Sodium (Singulair) 10 mg PO HS [facility] Last Admin: 02/22/19 21:08 Dose: 10 mg Polyethylene Glycol (Miralax) 17 gm PO HS [facility] Last Admin: 02/22/19 21:09 Dose: 17 gm Tamsulosin HCl (Flomax) 0.4 mg PO Q12 [facility] Last Admin: 02/23/19 08:55 Dose: 0.4 mg Temazepam (Restoril) 15 mg PO HS PRN PRN Reason: Insomnia Last Admin: 02/22/19 20:41 Dose: 15 mg Verapamil HCl (Calan Tab) 80 mg PO Q8H [facility] Last Admin: 02/23/19 10:00 Dose: 80 mg - Labs Labs: 02/23/19 04:35 02/23/19 04:35 PT 9.7 Seconds (9.8-13.1) L 02/03/19 19:35 INR 0.9 02/03/19 19:35 APTT 31.2 Seconds (25.6-37.1) 02/11/19 16:24 Assessment and Plan (1) Pneumonia Status: Acute (2) Acute on chronic respiratory failure with hypoxemia Status: Chronic (3) Hypercapnic respiratory failure Status: Chronic (4) Mucus plugging of bronchi Status: Suspected
--- NOTE | 2019-02-23 10:44 | CP.PCM.PN ---
Subjective - Date & Time of Evaluation Date of Evaluation: 02/23/19 Time of Evaluation: 12:33 - Subjective Subjective: ID Note- Patient seen and examined today on tele floor. he states he is able to expectorate more now but still has sob. denies any fever or chills. Objective - Vital Signs/Intake and Output Vital Signs (last 24 hours): Temp Pulse Resp BP Pulse Ox 98.0 F 67 18 110/61 94 L 02/23/19 07:45 02/23/19 10:00 02/23/19 07:45 02/23/19 10:00 02/23/19 07:45 - Medications Medications: Current Medications Acetaminophen (Tylenol 325mg Tab) 650 mg PO Q6 PRN PRN Reason: Pain, Mild (1-3) Last Admin: 02/22/19 10:21 Dose: 650 mg Acetaminophen/Butalbital/Caffeine (Fioricet) 1 tab PO Q6 PRN PRN Reason: Headache Last Admin: 02/21/19 20:44 Dose: 1 tab Acetazolamide (Diamox 250 Mg Tab) 250 mg PO DAILY [facility] Last Admin: 02/23/19 08:56 Dose: 250 mg Acyclovir (Zovirax 5% Oint) 1 applic EXT QID [facility] Last Admin: 02/23/19 09:26 Dose: Not Given Artificial Tears (Artificial Tears) 2 drop OU Q4 PRN PRN Reason: Dry eyes Last Admin: 02/23/19 08:52 Dose: 2 drop Atorvastatin Calcium (Lipitor) 20 mg PO HS [facility] Last Admin: 02/22/19 21:09 Dose: 20 mg Baclofen (Lioresal) 10 mg PO DAILY [facility] Last Admin: 02/23/19 09:00 Dose: 10 mg Docusate Sodium (Colace) 100 mg PO Q12 [facility] Last Admin: 02/23/19 08:58 Dose: 100 mg Enoxaparin Sodium (Lovenox) 40 mg SC DAILY [facility]; Protocol Last Admin: 02/23/19 08:58 Dose: 40 mg Famotidine (Pepcid) 20 mg PO BID [facility] Last Admin: 02/23/19 08:57 Dose: 20 mg Guaifenesin/Dextromethorphan (Robitussin Dm) 10 ml PO Q6 PRN PRN Reason: Cough Last Admin: 02/23/19 06:39 Dose: 10 ml Hydroxychloroquine Sulfate (Plaquenil) 200 mg PO DAILY [facility]; Protocol Last Admin: 02/23/19 08:57 Dose: 200 mg Ciprofloxacin (Cipro 200mg/100ml D5w) 100 mls @ 100 mls/hr IVPB Q12 [facility]; Protocol Last Admin: 02/23/19 08:54 Dose: 100 mls/hr Vancomycin HCl 1 gm/ Sodium (Chloride) 250 mls @ 166.667 mls/hr IVPB Q12 [facility]; Protocol Last Admin: 02/23/19 08:53 Dose: 166.667 mls/hr Fluconazole (Diflucan Iv 200 Mg/100 Ml Ns) 100 mls @ 100 mls/hr IVPB DAILY [facility]; Protocol Last Admin: 02/23/19 08:54 Dose: 100 mls/hr Meropenem 1 gm/ Sodium (Chloride) 100 mls @ 100 mls/hr IVPB Q8 [facility]; Protocol Last Admin: 02/23/19 09:02 Dose: 100 mls/hr Insulin Human Regular (Humulin R) 0 units SC ACHS [facility]; Protocol Last Admin: 02/23/19 08:24 Dose: Not Given Ipratropium [place] (Atrovent) 0.5 mg IH RQID [facility] Last Admin: 02/23/19 07:48 Dose: 0.5 mg Lactulose (Enulose) 20 gm PO DAILY PRN PRN Reason: Constipation Lactulose (Enulose) 20 gm PO Q4 [facility] Last Admin: 02/23/19 09:25 Dose: Not Given Levalbuterol HCl (Xopenex) 1.25 mg INH RQ4 PRN PRN Reason: Shortness of Breath Last Admin: 02/23/19 07:47 Dose: 1.25 mg Lidocaine (Lidoderm) 2 ea TD DAILY [facility] Last Admin: 02/23/19 09:00 Dose: 2 ea Methylprednisolone (Medrol) 8 mg PO DAILY [facility] Stop: 02/23/19 23:59 Last Admin: 02/23/19 08:57 Dose: 8 mg Methylprednisolone (Medrol) 4 mg PO DAILY [facility] Montelukast Sodium (Singulair) 10 mg PO HS [facility] Last Admin: 02/22/19 21:08 Dose: 10 mg Polyethylene Glycol (Miralax) 17 gm PO HS [facility] Last Admin: 02/22/19 21:09 Dose: 17 gm Tamsulosin HCl (Flomax) 0.4 mg PO Q12 [facility] Last Admin: 02/23/19 08:55 Dose: 0.4 mg Temazepam (Restoril) 15 mg PO HS PRN PRN Reason: Insomnia Last Admin: 02/22/19 20:41 Dose: 15 mg Verapamil HCl (Calan Tab) 80 mg PO Q8H [facility] Last Admin: 02/23/19 10:00 Dose: 80 mg - Labs Labs: - Additional Findings Additional findings: - Constitutional Appears: No Acute Distress, Chronically Ill - Head Exam Head Exam: ATRAUMATIC - Eye Exam Eye Exam: EOMI, PERRL - Neck Exam Neck exam: Positive for: Full Rom - Respiratory Exam Respiratory Exam: NORMAL BREATHING PATTERN Additional comments: decreased breath sounds bibasilar no wheezing - Cardiovascular Exam Additional comments: Irregularly Irregular - GI/Abdominal Exam GI & Abdominal Exam: Normal Bowel Sounds, Soft Additional comments: NT, ND - Extremities Exam Additional comments: no edema B/L LE - Neurological Exam Neurological exam: Alert, Oriented x 3 Laboratory Results - last 72 hr 02/20/19 02/20/19 02/20/19 07:11 15:38 20:03 WBC RBC Hgb Hct MCV MCH MCHC RDW Plt Count MPV Neut % (Auto) Lymph % (Auto) [place] % (Auto) Eos % (Auto) Baso % (Auto) Neut # (Auto) Lymph # (Auto) [place] # (Auto) Eos # (Auto) Baso # (Auto) Sodium Potassium Chloride Carbon Dioxide Anion Gap BUN Creatinine Est GFR ( Amer) Est GFR (Non-Af Amer) POC Glucose (mg/dL) 92 167 H 152 H Random Glucose Calcium Total Bilirubin AST ALT Alkaline Phosphatase Total Protein Albumin Globulin Albumin/Globulin Ratio 02/21/19 02/21/19 02/21/19 05:10 05:32 05:32 WBC 3.4 L RBC 2.79 L Hgb 9.3 L Hct 28.8 L MCV 103.3 H MCH 33.2 H MCHC 32.1 L RDW 19.8 H Plt Count 50 L MPV Neut % (Auto) Lymph % (Auto) [place] % (Auto) Eos % (Auto) Baso % (Auto) Neut # (Auto) Lymph # (Auto) [place] # (Auto) Eos # (Auto) Baso # (Auto) Sodium 135 Potassium 3.7 Chloride 102 Carbon Dioxide 31 H Anion Gap 6 L BUN 16 Creatinine 0.5 L Est GFR ( Amer) > 60 Est GFR (Non-Af Amer) > 60 POC Glucose (mg/dL) 108 Random Glucose 97 Calcium 8.5 Total Bilirubin 0.5 AST 30 ALT 49 Alkaline Phosphatase 52 Total Protein 5.1 L Albumin 2.8 L Globulin 2.3 Albumin/Globulin Ratio 1.2 02/21/19 02/21/19 02/22/19 16:42 20:41 04:55 WBC 3.4 L RBC 2.73 L Hgb 9.0 L Hct 28.2 L MCV 103.3 H MCH 32.8 H MCHC 31.7 L RDW 20.3 H Plt Count 48 L MPV 11.0 Neut % (Auto) 42.3 L Lymph % (Auto) 37.4 [place] % (Auto) 19.9 H Eos % (Auto) 0.1 Baso % (Auto) 0.3 Neut # (Auto) 1.5 L Lymph # (Auto) 1.3 [place] # (Auto) 0.7 Eos # (Auto) 0.0 Baso # (Auto) 0.0 Sodium Potassium Chloride Carbon Dioxide Anion Gap BUN Creatinine Est GFR ( Amer) Est GFR (Non-Af Amer) POC Glucose (mg/dL) 129 H 138 H Random Glucose Calcium Total Bilirubin AST ALT Alkaline Phosphatase Total Protein Albumin Globulin Albumin/Globulin Ratio 02/22/19 02/22/19 02/22/19 04:55 05:54 16:28 WBC RBC Hgb Hct MCV MCH MCHC RDW Plt Count MPV Neut % (Auto) Lymph % (Auto) [place] % (Auto) Eos % (Auto) Baso % (Auto) Neut # (Auto) Lymph # (Auto) [place] # (Auto) Eos # (Auto) Baso # (Auto) Sodium 137 Potassium 3.9 Chloride 101 Carbon Dioxide 32 H Anion Gap 8 L BUN 14 Creatinine 0.6 L Est GFR ( Amer) > 60 Est GFR (Non-Af Amer) > 60 POC Glucose (mg/dL) 71 91 Random Glucose 80 Calcium 8.5 Total Bilirubin AST ALT Alkaline Phosphatase Total Protein Albumin Globulin Albumin/Globulin Ratio 02/22/19 02/23/19 02/23/19 21:20 04:35 04:35 WBC 3.2 L RBC 2.90 L Hgb 9.5 L Hct 30.4 L MCV 104.9 H MCH 32.8 H MCHC 31.3 L RDW 20.6 H Plt Count 42 L MPV 10.1 Neut % (Auto) 51.1 Lymph % (Auto) 30.2 [place] % (Auto) 18.3 H Eos % (Auto) 0.0 Baso % (Auto) 0.4 Neut # (Auto) 1.7 L Lymph # (Auto) 1.0 [place] # (Auto) 0.6 Eos # (Auto) 0.0 Baso # (Auto) 0.0 Sodium 137 Potassium 4.0 Chloride 103 Carbon Dioxide 29 Anion Gap 9 L BUN 14 Creatinine 0.5 L Est GFR ( Amer) > 60 Est GFR (Non-Af Amer) > 60 POC Glucose (mg/dL) 144 H Random Glucose 75 Calcium 8.7 Total Bilirubin AST ALT Alkaline Phosphatase Total Protein Albumin Globulin Albumin/Globulin Ratio 02/23/19 02/23/19 05:32 10:25 WBC RBC Hgb Hct MCV MCH MCHC RDW Plt Count MPV Neut % (Auto) Lymph % (Auto) [place] % (Auto) Eos % (Auto) Baso % (Auto) Neut # (Auto) Lymph # (Auto) [place] # (Auto) Eos # (Auto) Baso # (Auto) Sodium Potassium Chloride Carbon Dioxide Anion Gap BUN Creatinine Est GFR ( Amer) Est GFR (Non-Af Amer) POC Glucose (mg/dL) 89 106 Random Glucose Calcium Total Bilirubin AST ALT Alkaline Phosphatase Total Protein Albumin Globulin Albumin/Globulin Ratio Accession No. : [id number] Patient Name / ID : [facility] / [id number] Exam Date : 02/23/2019 06:51:55 ( Approved ) Study Comment : Sex / Age : M / 73Y Creator : New [place]un[place] MD Dictator : [place] MD Investigator Fraud : Abalone Fisherman : [place] MD Approver2 : Report Date : 02/23/2019 11:48:57 My Comment : * Date of service: 02/23/2019 HISTORY: atelectasis COMPARISON: Made with chest radiograph dated 02/20/2019. The the TECHNIQUE: 1 view obtained. FINDINGS: LUNGS: Poor inspiration with low lung volumes and crowded bronchovascular markings. There is a right-sided effusion with right lower lobe atelectasis and or infiltrate. Mild left basilar atelectasis and suspected small left-sided effusion. Central pulmonary vasculature is slightly increased PLEURA: As above. No pneumothorax apparent. CARDIOVASCULAR: Cardiomegaly with aortic atherosclerotic calcification present. OSSEOUS STRUCTURES: Redemonstrated are short-segment bilateral Ocampo rods attached to multiple upper and mid thoracic segments VISUALIZED UPPER ABDOMEN: Normal. OTHER FINDINGS: None. IMPRESSION: Poor inspiration with low lung volumes and crowded bronchovascular markings. There is a right-sided effusion with right lower lobe atelectasis and or infiltrate. Mild left basilar atelectasis and suspected small left-sided effusion. Central pulmonary vasculature is slightly increased the Assessment and Plan (1) COPD exacerbation Status: Acute (2) HCAP (healthcare-associated pneumonia) Status: Acute (3) Paroxysmal atrial fibrillation with rapid ventricular response Status: Acute (4) CHF (congestive heart failure) Status: Acute (5) COPD (chronic obstructive pulmonary disease) Status: Chronic (6) Acute respiratory failure with hypoxia and hypercarbia Status: Acute - Assessment and Plan (Free Text) Assessment: A/P- 73 year old male with h/o RA on streoids and Plaquenil, COPD, admitted with copd exacerbation, hypercapneic resp faillure and zoster on abdomen . zoster has resolved , had completed course of acyclovir as per Primary doc. s/p bronch few days ago whoch as per physician ophthalmologist had shown thick purulent fluid . afebrile blood cx- neg x 3 sputum cx- stenotrophomonas 02/03/2019-\BAl fungal and AFB smear- neg so far except yeast BAL cytology report- negative for malignancy, mixed bacteria and some fungal possible emile ( as per report). Plan- start patient on IV bactrim for stenotrophomonas in sputum cx. 15 mg/kg every 8 hours. advise to continue with meropenem day #5. d/c cipro and vanco. continue with fluconazole for emile in BAL. All labs and imaging and chart notes reviewed. all above d/w patient and with physician ophthalmologist.
--- NOTE | 2019-02-23 11:54 | RAD ---
Date of service: 02/23/2019 HISTORY: atelectasis COMPARISON: Made with chest radiograph dated 02/20/2019. The the TECHNIQUE: 1 view obtained. FINDINGS: LUNGS: Poor inspiration with low lung volumes and crowded bronchovascular markings. There is a right-sided effusion with right lower lobe atelectasis and or infiltrate. Mild left basilar atelectasis and suspected small left-sided effusion. Central pulmonary vasculature is slightly increased PLEURA: As above. No pneumothorax apparent. CARDIOVASCULAR: Cardiomegaly with aortic atherosclerotic calcification present. OSSEOUS STRUCTURES: Redemonstrated are short-segment bilateral Ocampo rods attached to multiple upper and mid thoracic segments VISUALIZED UPPER ABDOMEN: Normal. OTHER FINDINGS: None. IMPRESSION: Poor inspiration with low lung volumes and crowded bronchovascular markings. There is a right-sided effusion with right lower lobe atelectasis and or infiltrate. Mild left basilar atelectasis and suspected small left-sided effusion. Central pulmonary vasculature is slightly increased the
[2019-02-23] MEDS: Apap-Butalbital-Caffeine 325-50-40mg Tab PO PRN (15:05)
[2019-02-23] MEDS ORDERED: Sulfamethoxazole/Trimethoprim 300 MG in Dextrose 5% In Water 500 ML IVPB SCH (21:00)
[2019-02-23] MEDS: POLYETHYLENE GLYCOL 3350 17 GM/Dose PACKET PO SCH (21:36)
--- NOTE | 2019-02-23 22:28 | PN ---
DATE: 02/23/2019 SUBJECTIVE: The patient is still experiencing shortness of breath and productive cough. Sinus tachycardia has improved. He denies any abdominal pain. PHYSICAL EXAMINATION: VITAL SIGNS: Blood pressure 102/64, heart rate 96, temperature 98.1, and respirations 18. HEENT: Pale conjunctivae. CHEST: Bibasilar rhonchi. HEART: S1, S2 regular. EXTREMITIES: No edema. LABORATORY DATA: Today's SMA-7 is within normal limits except for anion gap of 9 and creatinine 0.5. Today's hemoglobin and hematocrit 9.5 and 30.4, white count 3.2, and platelet count 42,000. ASSESSMENT: 1. Exacerbation of chronic obstructive lung disease. 2. Paroxysmal atrial fibrillation and atrial flutter. 3. Periods of multifocal atrial tachycardia. 4. Pancytopenia with worsening thrombocytopenia. 5. Rheumatoid arthritis. 6. Coronary artery disease, status post coronary artery bypass surgery. RECOMMENDATIONS: Continue Calan at 80 mg every 8 hours, Diamox 250 mg once a day. May hold on subcutaneous Lovenox for now. Continue Lipitor at 20 mg once a day, Medrol at 4 mg daily, IV meropenem at 1 g every 8 hours, Plaquenil at 200 mg daily, Bactrim 300 mg intravenous every 8 hours. Geo Whitmore MD
[2019-02-24] MEDS: Meropenem 1 GM in Sodium Chloride 0.9% 100 ML IVPB SCH ×3 (02:05→16:42)
[2019-02-24] MEDS: Ipratropium 0.02% Inhal Soln (0.5 mg/2.5 ml) UD IH SCH ×4 (07:05→19:38)
[2019-02-24] MEDS: Enoxaparin 40 mg Syringe SC SCH (08:41)
[2019-02-24] MEDS: Lidocaine 5% Patch TD SCH (08:42)
[2019-02-24] MEDS: Insulin Regular 100 units/ml SC SCH ×4 (08:43→21:37)
[2019-02-24] MEDS: Sulfamethoxazole/Trimethoprim 300 MG in Dextrose 5% In Water 500 ML IVPB SCH ×3 (10:15→23:09)
[2019-02-24] MEDS: Fluconazole IV 200mg/100 ml NS 100 ML IVPB SCH (11:35)
[2019-02-24] MEDS: guaiFENesin DM 200 mg-20 mg/10 ml UD PO PRN (11:59)
--- NOTE | 2019-02-24 18:09 | PN ---
DATE: 02/24/2019 SUBJECTIVE: The patient still continues to have shortness of breath and productive cough. multifocal atrial tachycardia at heart rate ranging from 110 to 120. PHYSICAL EXAMINATION: VITAL SIGNS: Blood pressure 160/69, heart rate 103, temperature 98.3, respirations 18. HEENT: Pale conjunctivae. CHEST: Bibasilar coarse crepitations. HEART: S1 and S2, regular. ABDOMEN: Soft. EXTREMITIES: No edema. LABORATORY DATA: Today's blood sugars are 95 and 161. Heparin-induced platelet antibody test is negative. Chest x-ray yesterday revealed poor inspiration, low lung volumes, and crowded bronchovascular markings. Right-sided pleural effusion with right lower lobe atelectasis and/or infiltrate. Mild left hilar atelectasis and suspected small left-sided effusion. Central pulmonary vasculature is slightly increased. ASSESSMENT: 1. Pneumonia. 2. Exacerbation of chronic obstructive lung disease. 3. Pancytopenia. The latest platelet count is 42,000 yesterday. 4. Paroxysmal atrial fibrillation and atrial flutter. 5. Coronary artery disease, status post coronary artery bypass surgery. 6. Rheumatoid arthritis. RECOMMENDATIONS: Continue Calan at 80 mg every 8 hours, Diamox 250 mg once a day, IV Diflucan 200 mg daily, Lipitor 20 mg at bedtime, IV meropenem at 1 g every 8 hours, Bactrim 300 mg IV piggyback every 8 hours. The case was discussed with who was planning to discontinue Plaquenil. Obtain a followup CBC in the a.m. Geo Whitmore MD
[2019-02-24] MEDS: POLYETHYLENE GLYCOL 3350 17 GM/Dose PACKET PO SCH (21:34)
--- NOTE | 2019-02-24 23:52 | PN ---
DATE: 02/24/2019 DAILY PROGRESS NOTE SUBJECTIVE: The patient is seen today, 02/24/2019. He is transferred to telemetry floor, and heart rate is better controlled. PHYSICAL EXAMINATION: VITAL SIGNS: Blood pressure 126/74, temperature 97.8, respiratory rate 20, and pulse 54. HEENT: Pupils equal and reactive to light. Normal-appearing mucosa of the conjunctivae, oropharynx and nasal membrane mucosa. NECK: Supple. No JVD. No carotid bruit. No lymph node. No thyromegaly. CHEST AND LUNGS: Bilateral symmetrical expansion. Few scattered rhonchi. CARDIOVASCULAR SYSTEM: PMI not localized. S1 and S2. No additional sounds. ABDOMEN: Normoactive bowel sounds. No tenderness. No organomegaly. No masses. EXTREMITIES: No cyanosis, no clubbing, no edema. There is deformity of the rheumatoid arthritis. CENTRAL NERVOUS SYSTEM: Alert, awake, oriented x2. The patient moves all extremities equally. ASSESSMENT: Pneumonia, hypercapnic respiratory failure, exacerbation of chronic obstructive pulmonary disease, advanced rheumatoid arthritis, coronary artery disease, status post coronary artery bypass graft, pancytopenia. PLAN: Follow up hematology senior business consultant and pulmonary senior business consultant. Continue current IV antibiotics. Physical therapy. Planned to discharge to transitional care unit. Michaela Wood MD
[2019-02-25] MEDS: Meropenem 1 GM in Sodium Chloride 0.9% 100 ML IVPB SCH ×3 (00:59→16:37)
[2019-02-25] MEDS: Sulfamethoxazole/Trimethoprim 300 MG in Dextrose 5% In Water 500 ML IVPB SCH ×3 (06:51→22:14)
[2019-02-25] MEDS: Insulin Regular 100 units/ml SC SCH ×4 (06:56→22:14)
[2019-02-25] MEDS: Ipratropium 0.02% Inhal Soln (0.5 mg/2.5 ml) UD IH SCH ×4 (07:54→19:19)
[2019-02-25] MEDS: guaiFENesin DM 200 mg-20 mg/10 ml UD PO PRN (08:45)
[2019-02-25] MEDS: Apap-Butalbital-Caffeine 325-50-40mg Tab PO PRN (08:45)
[2019-02-25] MEDS: Lidocaine 5% Patch TD SCH (08:46)
[2019-02-25] MEDS: Fluconazole IV 200mg/100 ml NS 100 ML IVPB SCH (08:52)
[2019-02-25] MEDS: POLYETHYLENE GLYCOL 3350 17 GM/Dose PACKET PO SCH (21:19)
--- NOTE | 2019-02-25 21:42 | PN ---
DATE: 02/25/2019 SUBJECTIVE: The patient is mildly short of breath, however, he is comfortable on nasal O2. He is able to sit on the chair today. He is currently in sinus rhythm with occasional APCs. Heart rate in the 80s. PHYSICAL EXAMINATION: VITAL SIGNS: Most recent recorded vital signs, blood pressure 123/70, heart rate 107, temperature 97.6, respirations 20. HEENT: Pale conjunctivae. CHEST: Bibasilar rhonchi. HEART: S1 and S2. Regular. ABDOMEN: Soft. EXTREMITIES: No edema. LABORATORY DATA: Today's blood sugars are 108 and 115. ASSESSMENT: 1. Exacerbation of chronic obstructive lung disease. 2. Consider bilateral pneumonia and pleural effusion. 3. Coronary artery disease, status post coronary artery bypass surgery in the past. 4. Paroxysmal atrial fibrillation and atrial flutter. 5. Runs of multifocal atrial tachycardia. 6, Rheumatoid arthritis. 7. Thrombocytopenia. RECOMMENDATIONS: Continue current Atrovent inhaler 4 times a day, Calan at 80 mg every 8 hours, fluconazole 200 mg intravenously daily, Medrol 4 mg p.o. daily, IV Meropenem at 1 g every 8 hours, IV Bactrim at 300 mg every 8 hours. Obtain CBC and BMP in the morning. Geo Whitmore MD
[2019-02-26] MEDS: Meropenem 1 GM in Sodium Chloride 0.9% 100 ML IVPB SCH ×3 (00:18→17:58)
[2019-02-26 05:31] LABS: MEAN CORPUSCULAR HEMOGLOBIN 33.6 pg (27.0-31.0); MEAN CORPUSCULAR HGB CONC 32.7 g/dL (33.0-37.0); WHITE BLOOD COUNT 3.5 K/uL (4.8-10.8)
[2019-02-26 05:52] LABS: RBC 2.97 Mil/uL (4.40-5.90); RED CELL DISTRIBUTION WIDTH 21.5 % (11.5-14.5)
[2019-02-26 06:02] LABS: MEAN CELL VOLUME 102.7 fl (80.0-94.0)
[2019-02-26 06:03] LABS: BLOOD UREA NITROGEN 10 mg/dl (9-20); CALCIUM 8.6 mg/dL (8.4-10.2); GFR NON-AFRICAN AMERICAN > 60
[2019-02-26] MEDS: Ipratropium 0.02% Inhal Soln (0.5 mg/2.5 ml) UD IH SCH ×4 (07:04→19:42)
[2019-02-26] MEDS: Sulfamethoxazole/Trimethoprim 300 MG in Dextrose 5% In Water 500 ML IVPB SCH ×3 (08:46→22:20)
[2019-02-26] MEDS: Fluconazole IV 200mg/100 ml NS 100 ML IVPB SCH (08:49)
[2019-02-26] MEDS: Insulin Regular 100 units/ml SC SCH ×4 (08:51→22:15)
[2019-02-26] MEDS: Lidocaine 5% Patch TD SCH (08:52)
--- NOTE | 2019-02-26 10:00 | CP.PCM.PN ---
Subjective - Date & Time of Evaluation Date of Evaluation: 02/26/19 Time of Evaluation: 09:49 - Subjective Subjective: Seen on morning rounds in telemetry. Awake, lying flat in bed, not in distress at rest. Has remained febrile, normotensive, well oxygenated. Complains that he has no appetite and minimal oral intake. Uses BiPAP mask ventilation overnight. TCO2 remains stable, thrombocytopenic but better. No chest x-ray in the lasr few days. Still having productive cough with white/creamy sputum. Trace dependant edema noted w/o cyanosis. Pharynx is pink and moist. Coarse rhonchi and rales in the RLL posteriorly, but air entry has improved somewhat. Scattered sonorous rhonchi present on the left as well with few medium rales. No audible wheezes or bronchial breath sounds. Will request followup chest x-ray. Seems to have achieved a plateau with minimal functional status. Will discuss continued parenteral antibiotics/antifungals with ID. I do not feel there is much further real improvement that can be expected. Objective - Vital Signs/Intake and Output Vital Signs (last 24 hours): Temp Pulse Resp BP Pulse Ox 98.0 F 89 18 121/76 94 L 02/26/19 07:58 02/26/19 07:58 02/26/19 07:58 02/26/19 07:58 02/26/19 07:58 - Medications Medications: Current Medications Acetaminophen (Tylenol 325mg Tab) 650 mg PO Q6 PRN PRN Reason: Pain, Mild (1-3) Last Admin: 02/25/19 20:20 Dose: 650 mg Acetaminophen/Butalbital/Caffeine (Fioricet) 1 tab PO Q6 PRN PRN Reason: Headache Last Admin: 02/25/19 08:45 Dose: 1 tab Acetazolamide (Diamox 250 Mg Tab) 250 mg PO DAILY [facility] Last Admin: 02/26/19 08:49 Dose: 250 mg Artificial Tears (Artificial Tears) 2 drop OU Q4 PRN PRN Reason: Dry eyes Last Admin: 02/23/19 08:52 Dose: 2 drop Atorvastatin Calcium (Lipitor) 20 mg PO HS [facility] Last Admin: 02/25/19 21:18 Dose: 20 mg Baclofen (Lioresal) 10 mg PO DAILY [facility] Last Admin: 02/26/19 08:53 Dose: 10 mg Docusate Sodium (Colace) 100 mg PO Q12 [facility] Last Admin: 02/26/19 08:48 Dose: 100 mg Famotidine (Pepcid) 20 mg PO BID [facility] Last Admin: 02/26/19 08:55 Dose: 20 mg Guaifenesin/Dextromethorphan (Robitussin Dm) 10 ml PO Q6 PRN PRN Reason: Cough Last Admin: 02/25/19 08:45 Dose: 10 ml Hydroxychloroquine Sulfate (Plaquenil) 200 mg PO DAILY [facility]; Protocol Last Admin: 02/26/19 08:55 Dose: 200 mg Fluconazole (Diflucan Iv 200 Mg/100 Ml Ns) 100 mls @ 100 mls/hr IVPB DAILY [facility]; Protocol Last Admin: 02/26/19 08:49 Dose: 100 mls/hr Meropenem 1 gm/ Sodium (Chloride) 100 mls @ 100 mls/hr IVPB Q8 [facility]; Protocol Last Admin: 02/26/19 08:54 Dose: 100 mls/hr Trimethoprim/Sulfamethoxazole (300 mg/ Dextrose) 500 mls @ 250 mls/hr IVPB Q8@0700,1500,2300 [facility]; Protocol Last Admin: 02/26/19 08:46 Dose: 250 mls/hr Insulin Human Regular (Humulin R) 0 units SC ACHS [facility]; Protocol Last Admin: 02/26/19 08:51 Dose: Not Given Ipratropium [place] (Atrovent) 0.5 mg IH RQID [facility] Last Admin: 02/26/19 07:04 Dose: 0.5 mg Lactulose (Enulose) 20 gm PO DAILY PRN PRN Reason: Constipation Lactulose (Enulose) 20 gm PO Q4 [facility] Last Admin: 02/26/19 08:50 Dose: 20 gm Levalbuterol HCl (Xopenex) 1.25 mg INH RQ4 PRN PRN Reason: Shortness of Breath Last Admin: 02/23/19 11:33 Dose: 1.25 mg Lidocaine (Lidoderm) 2 ea TD DAILY [facility] Last Admin: 02/26/19 08:52 Dose: 2 ea Methylprednisolone (Medrol) 4 mg PO DAILY [facility] Last Admin: 02/26/19 08:53 Dose: 4 mg Montelukast Sodium (Singulair) 10 mg PO HS [facility] Last Admin: 02/25/19 21:19 Dose: 10 mg Polyethylene Glycol (Miralax) 17 gm PO HS [facility] Last Admin: 02/25/19 21:19 Dose: Not Given Tamsulosin HCl (Flomax) 0.4 mg PO Q12 [facility] Last Admin: 02/26/19 08:50 Dose: 0.4 mg Temazepam (Restoril) 15 mg PO HS PRN PRN Reason: Insomnia Last Admin: 02/25/19 21:19 Dose: 15 mg Verapamil HCl (Calan Tab) 80 mg PO Q8H [facility] Last Admin: 02/26/19 01:51 Dose: 80 mg - Labs Labs: 02/26/19 05:00 02/26/19 05:00 PT 9.7 Seconds (9.8-13.1) L 02/03/19 19:35 INR 0.9 02/03/19 19:35 APTT 31.2 Seconds (25.6-37.1) 02/11/19 16:24 Assessment and Plan (1) Pneumonia Status: Acute (2) Acute on chronic respiratory failure with hypoxemia Status: Chronic (3) Hypercapnic respiratory failure Status: Chronic (4) Mucus plugging of bronchi Status: Suspected
--- NOTE | 2019-02-26 11:57 | CP.PCM.PN ---
Subjective - Date & Time of Evaluation Date of Evaluation: 02/26/19 Time of Evaluation: 11:57 - Subjective Subjective: ID Note- Patient seen and examined today. He states his breathing is somewhat better but he has alot of cough and expectorating phlegm. denies any fever . no diarrhea as per his nurse. Objective - Vital Signs/Intake and Output Vital Signs (last 24 hours): Temp Pulse Resp BP Pulse Ox 97.8 F 99 H 18 125/68 94 L 02/26/19 11:41 02/26/19 11:41 02/26/19 11:41 02/26/19 11:41 02/26/19 11:41 - Medications Medications: Current Medications Acetaminophen (Tylenol 325mg Tab) 650 mg PO Q6 PRN PRN Reason: Pain, Mild (1-3) Last Admin: 02/25/19 20:20 Dose: 650 mg Acetaminophen/Butalbital/Caffeine (Fioricet) 1 tab PO Q6 PRN PRN Reason: Headache Last Admin: 02/25/19 08:45 Dose: 1 tab Acetazolamide (Diamox 250 Mg Tab) 250 mg PO DAILY [facility] Last Admin: 02/26/19 08:49 Dose: 250 mg Artificial Tears (Artificial Tears) 2 drop OU Q4 PRN PRN Reason: Dry eyes Last Admin: 02/23/19 08:52 Dose: 2 drop Atorvastatin Calcium (Lipitor) 20 mg PO HS [facility] Last Admin: 02/25/19 21:18 Dose: 20 mg Baclofen (Lioresal) 10 mg PO DAILY [facility] Last Admin: 02/26/19 08:53 Dose: 10 mg Docusate Sodium (Colace) 100 mg PO Q12 [facility] Last Admin: 02/26/19 08:48 Dose: 100 mg Famotidine (Pepcid) 20 mg PO BID [facility] Last Admin: 02/26/19 08:55 Dose: 20 mg Guaifenesin/Dextromethorphan (Robitussin Dm) 10 ml PO Q6 PRN PRN Reason: Cough Last Admin: 02/25/19 08:45 Dose: 10 ml Hydroxychloroquine Sulfate (Plaquenil) 200 mg PO DAILY [facility]; Protocol Last Admin: 02/26/19 08:55 Dose: 200 mg Fluconazole (Diflucan Iv 200 Mg/100 Ml Ns) 100 mls @ 100 mls/hr IVPB DAILY [facility]; Protocol Last Admin: 02/26/19 08:49 Dose: 100 mls/hr Meropenem 1 gm/ Sodium (Chloride) 100 mls @ 100 mls/hr IVPB Q8 [facility]; Protocol Last Admin: 02/26/19 08:54 Dose: 100 mls/hr Trimethoprim/Sulfamethoxazole (300 mg/ Dextrose) 500 mls @ 250 mls/hr IVPB Q8@0700,1500,2300 [facility]; Protocol Last Admin: 02/26/19 08:46 Dose: 250 mls/hr Insulin Human Regular (Humulin R) 0 units SC ACHS [facility]; Protocol Last Admin: 02/26/19 08:51 Dose: Not Given Ipratropium [place] (Atrovent) 0.5 mg IH RQID [facility] Last Admin: 02/26/19 11:04 Dose: 0.5 mg Lactulose (Enulose) 20 gm PO DAILY PRN PRN Reason: Constipation Lactulose (Enulose) 20 gm PO Q4 [facility] Last Admin: 02/26/19 08:50 Dose: 20 gm Levalbuterol HCl (Xopenex) 1.25 mg INH RQ4 PRN PRN Reason: Shortness of Breath Last Admin: 02/23/19 11:33 Dose: 1.25 mg Lidocaine (Lidoderm) 2 ea TD DAILY [facility] Last Admin: 02/26/19 08:52 Dose: 2 ea Methylprednisolone (Medrol) 4 mg PO DAILY [facility] Last Admin: 02/26/19 08:53 Dose: 4 mg Montelukast Sodium (Singulair) 10 mg PO HS [facility] Last Admin: 02/25/19 21:19 Dose: 10 mg Polyethylene Glycol (Miralax) 17 gm PO HS [facility] Last Admin: 02/25/19 21:19 Dose: Not Given Tamsulosin HCl (Flomax) 0.4 mg PO Q12 [facility] Last Admin: 02/26/19 08:50 Dose: 0.4 mg Temazepam (Restoril) 15 mg PO HS PRN PRN Reason: Insomnia Last Admin: 02/25/19 21:19 Dose: 15 mg Verapamil HCl (Calan Tab) 80 mg PO Q8H [facility] Last Admin: 02/26/19 01:51 Dose: 80 mg - Labs Labs: - Additional Findings Additional findings: - Constitutional Appears: No Acute Distress, Chronically Ill - Head Exam Head Exam: ATRAUMATIC - Eye Exam Eye Exam: EOMI, PERRL - Neck Exam Neck exam: Positive for: Full Rom - Respiratory Exam Respiratory Exam: NORMAL BREATHING PATTERN Additional comments: decreased breath sounds bibasilar no wheezing - Cardiovascular Exam Additional comments: Irregularly Irregular - GI/Abdominal Exam GI & Abdominal Exam: Normal Bowel Sounds, Soft Additional comments: NT, ND - Extremities Exam Additional comments: no edema B/L LE - Neurological Exam Neurological exam: Alert, Oriented x 3 Laboratory Results - last 72 hr 02/20/19 02/21/19 02/22/19 17:33 11:33 11:37 WBC RBC Hgb Hct MCV MCH MCHC RDW Plt Count Sodium Potassium Chloride Carbon Dioxide Anion Gap BUN Creatinine Est GFR ( Amer) Est GFR (Non-Af Amer) POC Glucose (mg/dL) 131 H 86 Random Glucose Calcium Heparin-induced Plt Ab Negative HIPA Patient OD 0.026 02/23/19 02/23/19 02/24/19 16:15 21:09 05:15 WBC RBC Hgb Hct MCV MCH MCHC RDW Plt Count Sodium Potassium Chloride Carbon Dioxide Anion Gap BUN Creatinine Est GFR ( Amer) Est GFR (Non-Af Amer) POC Glucose (mg/dL) 174 H 247 H 95 Random Glucose Calcium Heparin-induced Plt Ab HIPA Patient OD 02/24/19 02/24/19 02/24/19 11:24 15:55 20:59 WBC RBC Hgb Hct MCV MCH MCHC RDW Plt Count Sodium Potassium Chloride Carbon Dioxide Anion Gap BUN Creatinine Est GFR ( Amer) Est GFR (Non-Af Amer) POC Glucose (mg/dL) 161 H 125 H 128 H Random Glucose Calcium Heparin-induced Plt Ab HIPA Patient OD 02/25/19 02/25/19 02/25/19 05:30 10:55 16:58 WBC RBC Hgb Hct MCV MCH MCHC RDW Plt Count Sodium Potassium Chloride Carbon Dioxide Anion Gap BUN Creatinine Est GFR ( Amer) Est GFR (Non-Af Amer) POC Glucose (mg/dL) 102 113 H 103 Random Glucose Calcium Heparin-induced Plt Ab HIPA Patient OD 02/25/19 02/26/19 02/26/19 21:38 05:00 05:00 WBC 3.5 L RBC 2.97 L Hgb 10.0 L Hct 30.5 L MCV 102.7 H D MCH 33.6 H MCHC 32.7 L RDW 21.5 H Plt Count 65 L D Sodium 135 Potassium 4.6 Chloride 100 Carbon Dioxide 28 Anion Gap 12 BUN 10 Creatinine 0.6 L Est GFR ( Amer) > 60 Est GFR (Non-Af Amer) > 60 POC Glucose (mg/dL) 105 Random Glucose 68 L Calcium 8.6 Heparin-induced Plt Ab HIPA Patient OD 02/26/19 02/26/19 02/26/19 05:13 06:34 10:40 WBC RBC Hgb Hct MCV MCH MCHC RDW Plt Count Sodium Potassium Chloride Carbon Dioxide Anion Gap BUN Creatinine Est GFR ( Amer) Est GFR (Non-Af Amer) POC Glucose (mg/dL) 71 108 136 H Random Glucose Calcium Heparin-induced Plt Ab HIPA Patient OD Microbiology 02/20/19 18:28 Sputum Gram Stain - Final 02/20/19 18:28 Sputum Sputum Culture - Final Stenotrophomonas Maltophilia 02/22/19 18:11 Naris MRSA Culture (Admit) - Final MRSA NOT DETECTED 02/15/19 10:20 Bronchial Washings Fungal Culture - Final Henny Glabrata 02/15/19 10:20 Other: Please Indicate Mycobacterial Culture - Preliminary 02/17/19 01:05 Sputum Gram Stain - Final 02/17/19 01:05 Sputum Sputum Culture - Final NORMAL ORAL KRISS 02/11/19 07:09 Naris MRSA Culture (Admit) - Final MRSA NOT DETECTED 02/09/19 19:00 Naris MRSA Culture (Admit) - Final MRSA NOT DETECTED 02/03/19 19:35 Blood-Venous Blood Culture - Final NO GROWTH AFTER 5 DAYS 02/03/19 19:35 Blood-Venous Gram Stain - Final TEST NOT PERFORMED 02/03/19 19:35 Blood-Venous Blood Culture - Final NO GROWTH AFTER 5 DAYS 02/03/19 19:35 Blood-Venous Gram Stain - Final TEST NOT PERFORMED 02/03/19 08:00 Sputum Gram Stain - Final 02/03/19 08:00 Sputum Sputum Culture - Final NORMAL ORAL KRISS 02/04/19 06:03 Naris MRSA Culture (Admit) - Final MRSA NOT DETECTED 02/03/19 20:50 Urine,Clean Catch Urine Culture - Final No Growth (<1,000 CFU/ML) Assessment and Plan (1) COPD exacerbation Status: Acute (2) HCAP (healthcare-associated pneumonia) Status: Acute (3) Paroxysmal atrial fibrillation with rapid ventricular response Status: Acute (4) CHF (congestive heart failure) Status: Acute (5) COPD (chronic obstructive pulmonary disease) Status: Chronic (6) Acute respiratory failure with hypoxia and hypercarbia Status: Acute - Assessment and Plan (Free Text) Assessment: A/P- 73 year old male with h/o RA on streoids and Plaquenil, COPD, admitted with copd exacerbation, hypercapneic resp faillure and zoster on abdomen . zoster has resolved , had completed course of acyclovir as per Primary doc. s/p bronch few days ago which as per dry room operator had shown thick purulent fluid . afebrile blood cx- neg x 3 sputum cx- stenotrophomonas 02/03/2019-\BAl fungal and AFB smear- neg so far except yeast BAL cytology report- negative for malignancy, mixed bacteria and some fungal possible henny ( as per report). Plan- Continue with IV bactrim for stenotrophomonas in sputum cx. day #3 advise to continue with meropenem day #7 advise 3 more days of meropnem. continue with fluconazole for henny in BAL.day #8 advise 2 more days of fluconazole.
[2019-02-26] MEDS: Levalbuterol 1.25 MG/3 ML Inhal Soln UD INH PRN (19:42)
[2019-02-26] MEDS: guaiFENesin DM 200 mg-20 mg/10 ml UD PO PRN (20:10)
[2019-02-26] MEDS: POLYETHYLENE GLYCOL 3350 17 GM/Dose PACKET PO SCH (21:09)
--- NOTE | 2019-02-27 | PN ---
DATE: 02/26/2019 SUBJECTIVE: The patient's shortness of breath has improved. He complains of severe anorexia as well as constipation. He is in sinus rhythm with APCs on the monitor. PHYSICAL EXAMINATION: VITAL SIGNS: Blood pressure 106/63, heart rate 57, temperature 98.1, respirations 18. HEENT: Pale conjunctivae. CHEST: Minimal basilar rhonchi. HEART: S1, S2. Regular. EXTREMITIES: No edema. LABORATORY DATA: Today's hemoglobin and hematocrit 10 and 30.5, white count 3.5, platelet count 65,000. Today's SMA-7 is within normal limits except for glucose of 68 and creatinine of 0.6. ASSESSMENT: 1. Improving pneumonia. 2. Paroxysmal atrial fibrillation and atrial flutter. 3. Runs of multifocal atrial tachycardia. 4. Improving thrombocytopenia. 5. Coronary artery disease, status post coronary artery bypass surgery in the past. 6. Anorexia. RECOMMENDATIONS: Continue current verapamil at 80 mg every 8 hours. Continue IV fluconazole at 200 mg daily, Lipitor 20 mg once a day, meropenem at 1 g intravenous every 8 hours, IV Bactrim at 300 mg every 8 hours. I will add [employer], dietary supplement 1 can t.i.d. Geo Whitmore MD
[2019-02-27] MEDS: Meropenem 1 GM in Sodium Chloride 0.9% 100 ML IVPB SCH ×3 (00:16→17:40)
[2019-02-27] MEDS: Sulfamethoxazole/Trimethoprim 300 MG in Dextrose 5% In Water 500 ML IVPB SCH ×3 (06:24→22:53)
[2019-02-27] MEDS: Ipratropium 0.02% Inhal Soln (0.5 mg/2.5 ml) UD IH SCH ×4 (08:03→19:00)
[2019-02-27] MEDS: Levalbuterol 1.25 MG/3 ML Inhal Soln UD INH PRN ×2 (08:03→11:16)
[2019-02-27] MEDS: Insulin Regular 100 units/ml SC SCH ×4 (10:21→22:56)
[2019-02-27] MEDS: Artificial Tears Opht Soln OU PRN (10:31)
[2019-02-27] MEDS: Lidocaine 5% Patch TD SCH ×2 (10:36→10:51)
[2019-02-27] MEDS ORDERED: Chlorhexidine Gluconate 1 APPL/PKT TP ONE (10:51)
[2019-02-27] MEDS: Fluconazole IV 200mg/100 ml NS 100 ML IVPB SCH (12:40)
[2019-02-27] MEDS: Apap-Butalbital-Caffeine 325-50-40mg Tab PO PRN (18:51)
--- NOTE | 2019-02-27 19:53 | PN ---
DATE: 02/27/2019 SUBJECTIVE: The patient is experiencing shortness of breath. He was tachycardic earlier this morning. He has very poor appetite and complaining of constipation. PHYSICAL EXAMINATION: VITAL SIGNS: Blood pressure 106/63, heart rate 67, temperature 98.1, respirations 20. HEENT: Pale conjunctivae. CHEST: Bibasilar rhonchi. HEART: S1, S2, regular. EXTREMITIES: No edema. LABORATORY DATA: Today's blood sugars are 108 and 117. ASSESSMENT: 1. Pneumonia and pleural effusion. 2. Paroxysmal atrial fibrillation and atrial flutter. 3. Multifocal atrial tachycardia. 4. Pancytopenia. 5. Coronary artery disease with history of coronary artery bypass surgery in the past. RECOMMENDATIONS: Continue intravenous Diflucan at 200 mg daily, continue Calan at 80 mg every 8 hours, Atrovent 0.5 mg inhalation four times a day, lactulose p.o. every 4 hours p.r.n., Lipitor 20 mg once a day, meropenem 1 g intravenously every 8 hours, Plaquenil 200 mg daily, IV Bactrim at mg every 8 hours and Xopenex inhaler every 4 hours p.r.n. The patient was encouraged to drink [employer] cans, which I assisted him with one can for lunchtime. Geo Whitmore MD
[2019-02-27] MEDS: POLYETHYLENE GLYCOL 3350 17 GM/Dose PACKET PO SCH (21:32)
--- NOTE | 2019-02-27 21:51 | PN ---
DATE: 02/26/2019 DAILY PROGRESS NOTE SUBJECTIVE: He was having exertional shortness of breath. The patient is still on IV antibiotics. PHYSICAL EXAMINATION: VITAL SIGNS: Blood pressure 106/63, temperature 98.2, respiratory rate 18, and pulse 57. HEENT: Pupils equal and reactive to light. Normal-appearing mucosa of the conjunctivae, oropharynx and nasal membrane mucosa. NECK: Supple. No JVD. No carotid bruit. No lymph node. No thyromegaly. CHEST AND LUNGS: Bilateral symmetrical expansion. Good air exchange. No rales. Few scattered rhonchi. CARDIOVASCULAR SYSTEM: PMI not localized. S1 and S2. No additional sounds. ABDOMEN: Normoactive bowel sounds. No tenderness. No organomegaly. No masses. EXTREMITIES: No cyanosis, no clubbing, no edema. CENTRAL NERVOUS SYSTEM: Alert, awake, oriented x2. No neurological deficits could be appreciated except for unsteadiness and generalized weakness. ASSESSMENT: Pneumonia, hypercapnic respiratory failure, chronic obstructive pulmonary disease exacerbation, coronary artery disease, status post coronary artery bypass graft, advanced rheumatoid arthritis. PLAN: Continue current medications and IV antibiotics as per Infectious Disease. Physical therapy and evaluate to discharge to subacute rehabilitation. Michaela Wood MD
--- NOTE | 2019-02-27 22:07 | PN ---
DATE: 02/27/2019 DAILY PROGRESS NOTE SUBJECTIVE: The patient is seen today, 02/27/2019. The patient is not able to walk with physical therapy due to generalized weakness. PHYSICAL EXAMINATION: VITAL SIGNS: Blood pressure is 106/63, temperature 97.8, respiratory rate 20, and pulse 72. HEENT: Pupils equal and reactive to light. Normal-appearing mucosa of the conjunctivae, oropharynx, and nasal membrane mucosa. NECK: Supple. No JVD, no carotid bruit, no lymph node, and no thyromegaly. CHEST AND LUNGS: Bilateral symmetrical expansion. Good air exchange. Few scattered rhonchi. CARDIOVASCULAR SYSTEM: PMI not localized. S1 and S2. No additional sounds. ABDOMEN: Normoactive bowel sounds. No tenderness, no organomegaly, and no masses. EXTREMITIES: No cyanosis, no clubbing, and no edema. There is ulnar deviation with advanced rheumatoid arthritis. CENTRAL NERVOUS SYSTEM: Alert, awake, and oriented x2. No neurological deficit could be appreciated. ASSESSMENT: Advanced pneumonia, hypercapnic respiratory failure, generalized debilitation, coronary artery disease, and advanced rheumatoid arthritis. PLAN: Continue current treatment as per ID. Physical therapy and plan to discharge to subacute rehabilitation. Michaela Wood MD
--- NOTE | 2019-02-27 22:18 | CP.PCM.PN ---
Subjective - Date & Time of Evaluation Date of Evaluation: 02/23/19 Time of Evaluation: 12:00 - Subjective Subjective: No complaints. Objective - Vital Signs/Intake and Output Vital Signs (last 24 hours): Temp Pulse Resp BP Pulse Ox 97.9 F 96 H 22 104/66 94 L 02/27/19 20:04 02/27/19 21:41 02/27/19 20:04 02/27/19 20:04 02/27/19 20:04 - Medications Medications: Current Medications Acetaminophen (Tylenol 325mg Tab) 650 mg PO Q6 PRN PRN Reason: Pain, Mild (1-3) Last Admin: 02/27/19 13:37 Dose: 650 mg Acetaminophen/Butalbital/Caffeine (Fioricet) 1 tab PO Q6 PRN PRN Reason: Headache Last Admin: 02/27/19 18:51 Dose: 1 tab Acetazolamide (Diamox 250 Mg Tab) 250 mg PO DAILY [facility] Last Admin: 02/27/19 10:33 Dose: 250 mg Artificial Tears (Artificial Tears) 2 drop OU Q4 PRN PRN Reason: Dry eyes Last Admin: 02/27/19 10:31 Dose: 2 drop Atorvastatin Calcium (Lipitor) 20 mg PO HS [facility] Last Admin: 02/27/19 21:34 Dose: 20 mg Baclofen (Lioresal) 10 mg PO DAILY [facility] Last Admin: 02/27/19 10:36 Dose: 10 mg Docusate Sodium (Colace) 100 mg PO Q12 [facility] Last Admin: 02/27/19 21:30 Dose: Not Given Famotidine (Pepcid) 20 mg PO BID [facility] Last Admin: 02/27/19 17:31 Dose: 20 mg Guaifenesin/Dextromethorphan (Robitussin Dm) 10 ml PO Q6 PRN PRN Reason: Cough Last Admin: 02/26/19 20:10 Dose: 10 ml Hydroxychloroquine Sulfate (Plaquenil) 200 mg PO DAILY [facility]; Protocol Last Admin: 02/27/19 10:39 Dose: 200 mg Fluconazole (Diflucan Iv 200 Mg/100 Ml Ns) 100 mls @ 100 mls/hr IVPB DAILY [facility]; Protocol Last Admin: 02/27/19 12:40 Dose: 100 mls/hr Meropenem 1 gm/ Sodium (Chloride) 100 mls @ 100 mls/hr IVPB Q8 [facility]; Protocol Last Admin: 02/27/19 17:40 Dose: 100 mls/hr Trimethoprim/Sulfamethoxazole (300 mg/ Dextrose) 500 mls @ 250 mls/hr IVPB Q8@0700,1500,2300 [facility]; Protocol Last Admin: 02/27/19 17:30 Dose: 250 mls/hr Insulin Human Regular (Humulin R) 0 units SC ACHS [facility]; Protocol Last Admin: 02/27/19 17:32 Dose: 1 unit Ipratropium [place] (Atrovent) 0.5 mg IH RQID [facility] Last Admin: 02/27/19 19:00 Dose: 0.5 mg Lactulose (Enulose) 20 gm PO DAILY PRN PRN Reason: Constipation Lactulose (Enulose) 20 gm PO Q4 [facility] Last Admin: 02/27/19 21:30 Dose: Not Given Levalbuterol HCl (Xopenex) 1.25 mg INH RQ4 PRN PRN Reason: Shortness of Breath Last Admin: 02/27/19 11:16 Dose: 1.25 mg Lidocaine (Lidoderm) 2 ea TD DAILY [facility] Last Admin: 02/27/19 10:51 Dose: Not Given Meclizine HCl (Antivert) 12.5 mg PO BID [facility] Last Admin: 02/27/19 17:29 Dose: 12.5 mg Methylprednisolone (Medrol) 4 mg PO DAILY [facility] Last Admin: 02/27/19 10:37 Dose: 4 mg Montelukast Sodium (Singulair) 10 mg PO HS [facility] Last Admin: 02/27/19 21:33 Dose: 10 mg Polyethylene Glycol (Miralax) 17 gm PO HS [facility] Last Admin: 02/27/19 21:32 Dose: Not Given Tamsulosin HCl (Flomax) 0.4 mg PO Q12 [facility] Last Admin: 02/27/19 20:10 Dose: 0.4 mg Temazepam (Restoril) 15 mg PO HS PRN PRN Reason: Insomnia Last Admin: 02/27/19 20:09 Dose: 15 mg Verapamil HCl (Calan Tab) 80 mg PO Q8H [facility] Last Admin: 02/27/19 17:46 Dose: 80 mg - Labs Labs: 02/26/19 05:00 02/26/19 05:00 PT 9.7 Seconds (9.8-13.1) L 03/30/19 19:35 INR 0.9 02/03/19 19:35 APTT 31.2 Seconds (25.6-37.1) 02/11/19 16:24 - Head Exam Head Exam: ATRAUMATIC - Eye Exam Eye Exam: Normal appearance - ENT Exam ENT Exam: Mucous Membranes Dry - Respiratory Exam Respiratory Exam: Decreased Breath Sounds - Cardiovascular Exam Cardiovascular Exam: +S1, +S2 - GI/Abdominal Exam GI & Abdominal Exam: Normal Bowel Sounds Assessment and Plan (1) Pancytopenia Assessment & Plan: prior improvement in cytopenias when holding hydroxychloroquine; on hold WBC and H/H improved, plt downtrending - heparin held normal iron/b12/folate stores transfusion support PRN Status: Acute (2) Pancreatic mass Assessment & Plan: prior elevation in chromogranin A level; repeated ?neuroendocrine tumor not a good surgical candidate, will cont. to monitor Status: Acute
--- NOTE | 2019-02-27 22:20 | CP.PCM.PN ---
Subjective - Date & Time of Evaluation Date of Evaluation: 02/24/19 Time of Evaluation: 17:00 - Subjective Subjective: Breathing better Objective - Vital Signs/Intake and Output Vital Signs (last 24 hours): Temp Pulse Resp BP Pulse Ox 97.9 F 96 H 22 104/66 94 L 02/27/19 20:04 02/27/19 21:41 02/27/19 20:04 02/27/19 20:04 02/27/19 20:04 - Medications Medications: Current Medications Acetaminophen (Tylenol 325mg Tab) 650 mg PO Q6 PRN PRN Reason: Pain, Mild (1-3) Last Admin: 02/27/19 13:37 Dose: 650 mg Acetaminophen/Butalbital/Caffeine (Fioricet) 1 tab PO Q6 PRN PRN Reason: Headache Last Admin: 02/27/19 18:51 Dose: 1 tab Acetazolamide (Diamox 250 Mg Tab) 250 mg PO DAILY [facility] Last Admin: 02/27/19 10:33 Dose: 250 mg Artificial Tears (Artificial Tears) 2 drop OU Q4 PRN PRN Reason: Dry eyes Last Admin: 02/27/19 10:31 Dose: 2 drop Atorvastatin Calcium (Lipitor) 20 mg PO HS [facility] Last Admin: 02/27/19 21:34 Dose: 20 mg Baclofen (Lioresal) 10 mg PO DAILY [facility] Last Admin: 02/27/19 10:36 Dose: 10 mg Docusate Sodium (Colace) 100 mg PO Q12 [facility] Last Admin: 02/27/19 21:30 Dose: Not Given Famotidine (Pepcid) 20 mg PO BID [facility] Last Admin: 02/27/19 17:31 Dose: 20 mg Guaifenesin/Dextromethorphan (Robitussin Dm) 10 ml PO Q6 PRN PRN Reason: Cough Last Admin: 02/26/19 20:10 Dose: 10 ml Hydroxychloroquine Sulfate (Plaquenil) 200 mg PO DAILY [facility]; Protocol Last Admin: 02/27/19 10:39 Dose: 200 mg Fluconazole (Diflucan Iv 200 Mg/100 Ml Ns) 100 mls @ 100 mls/hr IVPB DAILY [facility]; Protocol Last Admin: 02/27/19 12:40 Dose: 100 mls/hr Meropenem 1 gm/ Sodium (Chloride) 100 mls @ 100 mls/hr IVPB Q8 [facility]; Protocol Last Admin: 02/27/19 17:40 Dose: 100 mls/hr Trimethoprim/Sulfamethoxazole (300 mg/ Dextrose) 500 mls @ 250 mls/hr IVPB Q8@0700,1500,2300 [facility]; Protocol Last Admin: 02/27/19 17:30 Dose: 250 mls/hr Insulin Human Regular (Humulin R) 0 units SC ACHS [facility]; Protocol Last Admin: 02/27/19 17:32 Dose: 1 unit Ipratropium [place] (Atrovent) 0.5 mg IH RQID [facility] Last Admin: 02/27/19 19:00 Dose: 0.5 mg Lactulose (Enulose) 20 gm PO DAILY PRN PRN Reason: Constipation Lactulose (Enulose) 20 gm PO Q4 [facility] Last Admin: 02/27/19 21:30 Dose: Not Given Levalbuterol HCl (Xopenex) 1.25 mg INH RQ4 PRN PRN Reason: Shortness of Breath Last Admin: 02/27/19 11:16 Dose: 1.25 mg Lidocaine (Lidoderm) 2 ea TD DAILY [facility] Last Admin: 02/27/19 10:51 Dose: Not Given Meclizine HCl (Antivert) 12.5 mg PO BID [facility] Last Admin: 02/27/19 17:29 Dose: 12.5 mg Methylprednisolone (Medrol) 4 mg PO DAILY [facility] Last Admin: 02/27/19 10:37 Dose: 4 mg Montelukast Sodium (Singulair) 10 mg PO HS [facility] Last Admin: 02/27/19 21:33 Dose: 10 mg Polyethylene Glycol (Miralax) 17 gm PO HS [facility] Last Admin: 02/27/19 21:32 Dose: Not Given Tamsulosin HCl (Flomax) 0.4 mg PO Q12 [facility] Last Admin: 02/27/19 20:10 Dose: 0.4 mg Temazepam (Restoril) 15 mg PO HS PRN PRN Reason: Insomnia Last Admin: 02/27/19 20:09 Dose: 15 mg Verapamil HCl (Calan Tab) 80 mg PO Q8H [facility] Last Admin: 02/27/19 17:46 Dose: 80 mg - Labs Labs: 02/26/19 05:00 02/26/19 05:00 PT 9.7 Seconds (9.8-13.1) L 02/03/19 19:35 INR 0.9 02/03/19 19:35 APTT 31.2 Seconds (25.6-37.1) 02/11/19 16:24 - Head Exam Head Exam: ATRAUMATIC - Eye Exam Eye Exam: Normal appearance - ENT Exam ENT Exam: Mucous Membranes Dry - Respiratory Exam Respiratory Exam: Decreased Breath Sounds - Cardiovascular Exam Cardiovascular Exam: +S1, +S2 - GI/Abdominal Exam GI & Abdominal Exam: Normal Bowel Sounds Assessment and Plan (1) Pancytopenia Assessment & Plan: prior improvement in cytopenias when holding hydroxychloroquine; on hold WBC and H/H improved, plt downtrending - heparin held normal iron/b12/folate stores transfusion support PRN Status: Acute (2) Pancreatic mass Assessment & Plan: prior elevation in chromogranin A level; repeated ?neuroendocrine tumor not a good surgical candidate, will cont. to monitor Status: Acute
--- NOTE | 2019-02-27 22:21 | CP.PCM.PN ---
Subjective - Date & Time of Evaluation Date of Evaluation: 02/26/19 Time of Evaluation: 19:00 - Subjective Subjective: No complaints. Objective - Vital Signs/Intake and Output Vital Signs (last 24 hours): Temp Pulse Resp BP Pulse Ox 97.9 F 96 H 22 104/66 94 L 02/27/19 20:04 02/27/19 21:41 02/27/19 20:04 02/27/19 20:04 02/27/19 20:04 - Medications Medications: Current Medications Acetaminophen (Tylenol 325mg Tab) 650 mg PO Q6 PRN PRN Reason: Pain, Mild (1-3) Last Admin: 02/27/19 13:37 Dose: 650 mg Acetaminophen/Butalbital/Caffeine (Fioricet) 1 tab PO Q6 PRN PRN Reason: Headache Last Admin: 02/27/19 18:51 Dose: 1 tab Acetazolamide (Diamox 250 Mg Tab) 250 mg PO DAILY [facility] Last Admin: 02/27/19 10:33 Dose: 250 mg Artificial Tears (Artificial Tears) 2 drop OU Q4 PRN PRN Reason: Dry eyes Last Admin: 02/27/19 10:31 Dose: 2 drop Atorvastatin Calcium (Lipitor) 20 mg PO HS [facility] Last Admin: 02/27/19 21:34 Dose: 20 mg Baclofen (Lioresal) 10 mg PO DAILY [facility] Last Admin: 02/27/19 10:36 Dose: 10 mg Docusate Sodium (Colace) 100 mg PO Q12 [facility] Last Admin: 02/27/19 21:30 Dose: Not Given Famotidine (Pepcid) 20 mg PO BID [facility] Last Admin: 02/27/19 17:31 Dose: 20 mg Guaifenesin/Dextromethorphan (Robitussin Dm) 10 ml PO Q6 PRN PRN Reason: Cough Last Admin: 02/26/19 20:10 Dose: 10 ml Hydroxychloroquine Sulfate (Plaquenil) 200 mg PO DAILY [facility]; Protocol Last Admin: 02/27/19 10:39 Dose: 200 mg Fluconazole (Diflucan Iv 200 Mg/100 Ml Ns) 100 mls @ 100 mls/hr IVPB DAILY [facility]; Protocol Last Admin: 02/27/19 12:40 Dose: 100 mls/hr Meropenem 1 gm/ Sodium (Chloride) 100 mls @ 100 mls/hr IVPB Q8 [facility]; Protocol Last Admin: 02/27/19 17:40 Dose: 100 mls/hr Trimethoprim/Sulfamethoxazole (300 mg/ Dextrose) 500 mls @ 250 mls/hr IVPB Q8@0700,1500,2300 [facility]; Protocol Last Admin: 02/27/19 17:30 Dose: 250 mls/hr Insulin Human Regular (Humulin R) 0 units SC ACHS [facility]; Protocol Last Admin: 02/27/19 17:32 Dose: 1 unit Ipratropium [place] (Atrovent) 0.5 mg IH RQID [facility] Last Admin: 02/27/19 19:00 Dose: 0.5 mg Lactulose (Enulose) 20 gm PO DAILY PRN PRN Reason: Constipation Lactulose (Enulose) 20 gm PO Q4 [facility] Last Admin: 02/27/19 21:30 Dose: Not Given Levalbuterol HCl (Xopenex) 1.25 mg INH RQ4 PRN PRN Reason: Shortness of Breath Last Admin: 02/27/19 11:16 Dose: 1.25 mg Lidocaine (Lidoderm) 2 ea TD DAILY [facility] Last Admin: 02/27/19 10:51 Dose: Not Given Meclizine HCl (Antivert) 12.5 mg PO BID [facility] Last Admin: 02/27/19 17:29 Dose: 12.5 mg Methylprednisolone (Medrol) 4 mg PO DAILY [facility] Last Admin: 02/27/19 10:37 Dose: 4 mg Montelukast Sodium (Singulair) 10 mg PO HS [facility] Last Admin: 02/27/19 21:33 Dose: 10 mg Polyethylene Glycol (Miralax) 17 gm PO HS [facility] Last Admin: 02/27/19 21:32 Dose: Not Given Tamsulosin HCl (Flomax) 0.4 mg PO Q12 [facility] Last Admin: 02/27/19 20:10 Dose: 0.4 mg Temazepam (Restoril) 15 mg PO HS PRN PRN Reason: Insomnia Last Admin: 02/27/19 20:09 Dose: 15 mg Verapamil HCl (Calan Tab) 80 mg PO Q8H [facility] Last Admin: 02/27/19 17:46 Dose: 80 mg - Labs Labs: 02/26/19 05:00 02/26/19 05:00 PT 9.7 Seconds (9.8-13.1) L 03/30/19 19:35 INR 0.9 02/03/19 19:35 APTT 31.2 Seconds (25.6-37.1) 02/11/19 16:24 - Head Exam Head Exam: ATRAUMATIC - Eye Exam Eye Exam: Normal appearance - ENT Exam ENT Exam: Mucous Membranes Dry - Respiratory Exam Respiratory Exam: Decreased Breath Sounds - Cardiovascular Exam Cardiovascular Exam: +S1, +S2 - GI/Abdominal Exam GI & Abdominal Exam: Normal Bowel Sounds Assessment and Plan (1) Pancytopenia Assessment & Plan: prior improvement in cytopenias when holding hydroxychloroquine; held and re sumed WBC and H/H improved, plt downtrending - heparin held normal iron/b12/folate stores transfusion support PRN Status: Acute (2) Pancreatic mass Assessment & Plan: prior elevation in chromogranin A level; repeated ?neuroendocrine tumor not a good surgical candidate, will cont. to monitor Status: Acute
--- NOTE | 2019-02-27 22:22 | CP.PCM.PN ---
Subjective - Date & Time of Evaluation Date of Evaluation: 02/27/19 Time of Evaluation: 19:00 - Subjective Subjective: Breathing better Objective - Vital Signs/Intake and Output Vital Signs (last 24 hours): Temp Pulse Resp BP Pulse Ox 97.9 F 96 H 22 104/66 94 L 02/27/19 20:04 02/27/19 21:41 02/27/19 20:04 02/27/19 20:04 02/27/19 20:04 - Medications Medications: Current Medications Acetaminophen (Tylenol 325mg Tab) 650 mg PO Q6 PRN PRN Reason: Pain, Mild (1-3) Last Admin: 02/27/19 13:37 Dose: 650 mg Acetaminophen/Butalbital/Caffeine (Fioricet) 1 tab PO Q6 PRN PRN Reason: Headache Last Admin: 02/27/19 18:51 Dose: 1 tab Acetazolamide (Diamox 250 Mg Tab) 250 mg PO DAILY [facility] Last Admin: 02/27/19 10:33 Dose: 250 mg Artificial Tears (Artificial Tears) 2 drop OU Q4 PRN PRN Reason: Dry eyes Last Admin: 02/27/19 10:31 Dose: 2 drop Atorvastatin Calcium (Lipitor) 20 mg PO HS [facility] Last Admin: 02/27/19 21:34 Dose: 20 mg Baclofen (Lioresal) 10 mg PO DAILY [facility] Last Admin: 02/27/19 10:36 Dose: 10 mg Docusate Sodium (Colace) 100 mg PO Q12 [facility] Last Admin: 02/27/19 21:30 Dose: Not Given Famotidine (Pepcid) 20 mg PO BID [facility] Last Admin: 02/27/19 17:31 Dose: 20 mg Guaifenesin/Dextromethorphan (Robitussin Dm) 10 ml PO Q6 PRN PRN Reason: Cough Last Admin: 02/26/19 20:10 Dose: 10 ml Hydroxychloroquine Sulfate (Plaquenil) 200 mg PO DAILY [facility]; Protocol Last Admin: 02/27/19 10:39 Dose: 200 mg Fluconazole (Diflucan Iv 200 Mg/100 Ml Ns) 100 mls @ 100 mls/hr IVPB DAILY [facility]; Protocol Last Admin: 02/27/19 12:40 Dose: 100 mls/hr Meropenem 1 gm/ Sodium (Chloride) 100 mls @ 100 mls/hr IVPB Q8 [facility]; Protocol Last Admin: 02/27/19 17:40 Dose: 100 mls/hr Trimethoprim/Sulfamethoxazole (300 mg/ Dextrose) 500 mls @ 250 mls/hr IVPB Q8@0700,1500,2300 [facility]; Protocol Last Admin: 02/27/19 17:30 Dose: 250 mls/hr Insulin Human Regular (Humulin R) 0 units SC ACHS [facility]; Protocol Last Admin: 02/27/19 17:32 Dose: 1 unit Ipratropium [place] (Atrovent) 0.5 mg IH RQID [facility] Last Admin: 02/27/19 19:00 Dose: 0.5 mg Lactulose (Enulose) 20 gm PO DAILY PRN PRN Reason: Constipation Lactulose (Enulose) 20 gm PO Q4 [facility] Last Admin: 02/27/19 21:30 Dose: Not Given Levalbuterol HCl (Xopenex) 1.25 mg INH RQ4 PRN PRN Reason: Shortness of Breath Last Admin: 02/27/19 11:16 Dose: 1.25 mg Lidocaine (Lidoderm) 2 ea TD DAILY [facility] Last Admin: 02/27/19 10:51 Dose: Not Given Meclizine HCl (Antivert) 12.5 mg PO BID [facility] Last Admin: 02/27/19 17:29 Dose: 12.5 mg Methylprednisolone (Medrol) 4 mg PO DAILY [facility] Last Admin: 02/27/19 10:37 Dose: 4 mg Montelukast Sodium (Singulair) 10 mg PO HS [facility] Last Admin: 02/27/19 21:33 Dose: 10 mg Polyethylene Glycol (Miralax) 17 gm PO HS [facility] Last Admin: 02/27/19 21:32 Dose: Not Given Tamsulosin HCl (Flomax) 0.4 mg PO Q12 [facility] Last Admin: 02/27/19 20:10 Dose: 0.4 mg Temazepam (Restoril) 15 mg PO HS PRN PRN Reason: Insomnia Last Admin: 02/27/19 20:09 Dose: 15 mg Verapamil HCl (Calan Tab) 80 mg PO Q8H [facility] Last Admin: 02/27/19 17:46 Dose: 80 mg - Labs Labs: 02/26/19 05:00 02/26/19 05:00 PT 9.7 Seconds (9.8-13.1) L 02/03/19 19:35 INR 0.9 02/03/19 19:35 APTT 31.2 Seconds (25.6-37.1) 02/11/19 16:24 - Head Exam Head Exam: ATRAUMATIC - Eye Exam Eye Exam: Normal appearance - ENT Exam ENT Exam: Mucous Membranes Dry - Respiratory Exam Respiratory Exam: Decreased Breath Sounds - Cardiovascular Exam Cardiovascular Exam: +S1, +S2 - GI/Abdominal Exam GI & Abdominal Exam: Normal Bowel Sounds Assessment and Plan (1) Pancytopenia Assessment & Plan: prior improvement in cytopenias when holding hydroxychloroquine; held and now resumed WBC and H/H improved, plt improved - okay to resume heparin if plt > 50,000 normal iron/b12/folate stores transfusion support PRN Status: Acute (2) Pancreatic mass Assessment & Plan: prior elevation in chromogranin A level; repeated ?neuroendocrine tumor not a good surgical candidate, will cont. to monitor Status: Acute
[2019-02-28] MEDS: guaiFENesin DM 200 mg-20 mg/10 ml UD PO PRN ×3 (00:41→17:57)
[2019-02-28] MEDS: Meropenem 1 GM in Sodium Chloride 0.9% 100 ML IVPB SCH ×3 (00:48→17:56)
[2019-02-28] MEDS: Levalbuterol 1.25 MG/3 ML Inhal Soln UD INH PRN ×2 (02:33→18:11)
[2019-02-28] MEDS: Sulfamethoxazole/Trimethoprim 300 MG in Dextrose 5% In Water 500 ML IVPB SCH ×3 (06:57→22:51)
[2019-02-28] MEDS: Ipratropium 0.02% Inhal Soln (0.5 mg/2.5 ml) UD IH SCH ×4 (07:37→19:03)
[2019-02-28] MEDS: Insulin Regular 100 units/ml SC SCH ×4 (08:53→22:00)
[2019-02-28] MEDS: Lidocaine 5% Patch TD SCH (08:54)
[2019-02-28] MEDS: Fluconazole IV 200mg/100 ml NS 100 ML IVPB SCH (10:38)
--- NOTE | 2019-02-28 10:41 | CP.PCM.PN ---
Subjective - Date & Time of Evaluation Date of Evaluation: 02/28/19 Time of Evaluation: 10:33 - Subjective Subjective: Seen on morning rounds, lying flat in bed. Interim events reviewed. He did participate with physical therapy yesterday and needed a lot of encouragement. He states that he feels as though he has been through too much physically, and his mood appears resigned. He does participate with the exam and follows simple commands. When asked to cough in the left lateral position he still expectorates a small amount of mucoid sputum. Breath sounds are diminished bilaterally and distant bronchial BS are heard in the right base. No audible wheezes heard, scattered sonorous rhonchi are present bilaterally. Heart rate is still prone to tachycardia and looks like continued a fib. He should be approaching the end of his fluconazole and meropenem. Trimethoprim/sulfa will continue for a while longer. A follow up CXR will be done now, and hopefully will show some further improvement. Objective - Vital Signs/Intake and Output Vital Signs (last 24 hours): Temp Pulse Resp BP Pulse Ox 98.4 F 105 H 20 95/66 L 95 02/28/19 07:54 02/28/19 07:54 02/28/19 07:54 02/28/19 07:54 02/28/19 07:54 - Medications Medications: Current Medications Acetaminophen (Tylenol 325mg Tab) 650 mg PO Q6 PRN PRN Reason: Pain, Mild (1-3) Last Admin: 02/27/19 13:37 Dose: 650 mg Acetaminophen/Butalbital/Caffeine (Fioricet) 1 tab PO Q6 PRN PRN Reason: Headache Last Admin: 02/27/19 18:51 Dose: 1 tab Acetazolamide (Diamox 250 Mg Tab) 250 mg PO DAILY [facility] Last Admin: 02/28/19 08:52 Dose: 250 mg Artificial Tears (Artificial Tears) 2 drop OU Q4 PRN PRN Reason: Dry eyes Last Admin: 02/27/19 10:31 Dose: 2 drop Atorvastatin Calcium (Lipitor) 20 mg PO HS [facility] Last Admin: 02/27/19 21:34 Dose: 20 mg Baclofen (Lioresal) 10 mg PO DAILY [facility] Last Admin: 02/28/19 08:54 Dose: 10 mg Docusate Sodium (Colace) 100 mg PO Q12 [facility] Last Admin: 02/28/19 08:51 Dose: 100 mg Famotidine (Pepcid) 20 mg PO BID [facility] Last Admin: 02/28/19 08:55 Dose: 20 mg Guaifenesin/Dextromethorphan (Robitussin Dm) 10 ml PO Q6 PRN PRN Reason: Cough Last Admin: 02/28/19 06:37 Dose: 10 ml Hydroxychloroquine Sulfate (Plaquenil) 200 mg PO DAILY [facility]; Protocol Last Admin: 02/28/19 08:55 Dose: 200 mg Fluconazole (Diflucan Iv 200 Mg/100 Ml Ns) 100 mls @ 100 mls/hr IVPB DAILY [facility]; Protocol Last Admin: 02/27/19 12:40 Dose: 100 mls/hr Meropenem 1 gm/ Sodium (Chloride) 100 mls @ 100 mls/hr IVPB Q8 [facility]; Protocol Last Admin: 02/28/19 09:00 Dose: 100 mls/hr Trimethoprim/Sulfamethoxazole (300 mg/ Dextrose) 500 mls @ 250 mls/hr IVPB Q8@0700,1500,2300 [facility]; Protocol Last Admin: 02/28/19 06:57 Dose: 250 mls/hr Insulin Human Regular (Humulin R) 0 units SC ACHS [facility]; Protocol Last Admin: 02/28/19 08:53 Dose: Not Given Ipratropium [place] (Atrovent) 0.5 mg IH RQID [facility] Last Admin: 02/28/19 07:37 Dose: 0.5 mg Lactulose (Enulose) 20 gm PO DAILY PRN PRN Reason: Constipation Lactulose (Enulose) 20 gm PO Q4 [facility] Last Admin: 02/28/19 08:53 Dose: Not Given Levalbuterol HCl (Xopenex) 1.25 mg INH RQ4 PRN PRN Reason: Shortness of Breath Last Admin: 02/28/19 02:33 Dose: 1.25 mg Lidocaine (Lidoderm) 2 ea TD DAILY [facility] Last Admin: 02/28/19 08:54 Dose: Not Given Meclizine HCl (Antivert) 12.5 mg PO BID [facility] Last Admin: 02/28/19 08:50 Dose: 12.5 mg Methylprednisolone (Medrol) 4 mg PO DAILY [facility] Last Admin: 02/28/19 08:55 Dose: 4 mg Montelukast Sodium (Singulair) 10 mg PO HS [facility] Last Admin: 02/27/19 21:33 Dose: 10 mg Polyethylene Glycol (Miralax) 17 gm PO HS [facility] Last Admin: 02/27/19 21:32 Dose: Not Given Tamsulosin HCl (Flomax) 0.4 mg PO Q12 [facility] Last Admin: 02/28/19 08:53 Dose: 0.4 mg Temazepam (Restoril) 15 mg PO HS PRN PRN Reason: Insomnia Last Admin: 02/28/19 08:59 Dose: 15 mg Verapamil HCl (Calan Tab) 80 mg PO Q8H [facility] Last Admin: 02/28/19 02:11 Dose: 80 mg - Labs Labs: 02/26/19 05:00 02/26/19 05:00 PT 9.7 Seconds (9.8-13.1) L 02/03/19 19:35 INR 0.9 02/03/19 19:35 APTT 31.2 Seconds (25.6-37.1) 02/11/19 16:24 Assessment and Plan (1) Pneumonia Status: Acute (2) Acute on chronic respiratory failure with hypoxemia Status: Chronic (3) Hypercapnic respiratory failure Status: Chronic (4) Mucus plugging of bronchi Status: Suspected
--- NOTE | 2019-02-28 11:17 | CP.PCM.PN ---
Subjective - Date & Time of Evaluation Date of Evaluation: 02/28/19 Time of Evaluation: 11:17 - Subjective Subjective: ID Note- Patient seen and examined today. awake and alert but kind of down mood today. states he is tired. he has cough with expectoration. Objective - Vital Signs/Intake and Output Vital Signs (last 24 hours): Temp Pulse Resp BP Pulse Ox 98.4 F 87 20 103/52 L 95 02/28/19 07:54 02/28/19 10:44 02/28/19 07:54 02/28/19 10:44 02/28/19 07:54 - Medications Medications: Current Medications Acetaminophen (Tylenol 325mg Tab) 650 mg PO Q6 PRN PRN Reason: Pain, Mild (1-3) Last Admin: 02/27/19 13:37 Dose: 650 mg Acetaminophen/Butalbital/Caffeine (Fioricet) 1 tab PO Q6 PRN PRN Reason: Headache Last Admin: 02/27/19 18:51 Dose: 1 tab Acetazolamide (Diamox 250 Mg Tab) 250 mg PO DAILY [facility] Last Admin: 02/28/19 08:52 Dose: 250 mg Artificial Tears (Artificial Tears) 2 drop OU Q4 PRN PRN Reason: Dry eyes Last Admin: 02/27/19 10:31 Dose: 2 drop Atorvastatin Calcium (Lipitor) 20 mg PO HS [facility] Last Admin: 02/27/19 21:34 Dose: 20 mg Baclofen (Lioresal) 10 mg PO DAILY [facility] Last Admin: 02/28/19 08:54 Dose: 10 mg Docusate Sodium (Colace) 100 mg PO Q12 [facility] Last Admin: 02/28/19 08:51 Dose: 100 mg Famotidine (Pepcid) 20 mg PO BID [facility] Last Admin: 02/28/19 08:55 Dose: 20 mg Guaifenesin/Dextromethorphan (Robitussin Dm) 10 ml PO Q6 PRN PRN Reason: Cough Last Admin: 02/28/19 06:37 Dose: 10 ml Hydroxychloroquine Sulfate (Plaquenil) 200 mg PO DAILY [facility]; Protocol Last Admin: 02/28/19 08:55 Dose: 200 mg Fluconazole (Diflucan Iv 200 Mg/100 Ml Ns) 100 mls @ 100 mls/hr IVPB DAILY [facility]; Protocol Last Admin: 02/28/19 10:38 Dose: 100 mls/hr Meropenem 1 gm/ Sodium (Chloride) 100 mls @ 100 mls/hr IVPB Q8 [facility]; Protocol Last Admin: 02/28/19 09:00 Dose: 100 mls/hr Trimethoprim/Sulfamethoxazole (300 mg/ Dextrose) 500 mls @ 250 mls/hr IVPB Q8@0700,1500,2300 [facility]; Protocol Last Admin: 02/28/19 06:57 Dose: 250 mls/hr Insulin Human Regular (Humulin R) 0 units SC ACHS [facility]; Protocol Last Admin: 02/28/19 08:53 Dose: Not Given Ipratropium [place] (Atrovent) 0.5 mg IH RQID [facility] Last Admin: 02/28/19 07:37 Dose: 0.5 mg Lactulose (Enulose) 20 gm PO DAILY PRN PRN Reason: Constipation Lactulose (Enulose) 20 gm PO Q4 [facility] Last Admin: 02/28/19 08:53 Dose: Not Given Levalbuterol HCl (Xopenex) 1.25 mg INH RQ4 PRN PRN Reason: Shortness of Breath Last Admin: 02/28/19 02:33 Dose: 1.25 mg Lidocaine (Lidoderm) 2 ea TD DAILY [facility] Last Admin: 02/28/19 08:54 Dose: Not Given Meclizine HCl (Antivert) 12.5 mg PO BID [facility] Last Admin: 02/28/19 08:50 Dose: 12.5 mg Methylprednisolone (Medrol) 4 mg PO DAILY [facility] Last Admin: 02/28/19 08:55 Dose: 4 mg Montelukast Sodium (Singulair) 10 mg PO HS [facility] Last Admin: 02/27/19 21:33 Dose: 10 mg Polyethylene Glycol (Miralax) 17 gm PO HS [facility] Last Admin: 02/27/19 21:32 Dose: Not Given Tamsulosin HCl (Flomax) 0.4 mg PO Q12 [facility] Last Admin: 02/28/19 08:53 Dose: 0.4 mg Temazepam (Restoril) 15 mg PO HS PRN PRN Reason: Insomnia Last Admin: 02/28/19 08:59 Dose: 15 mg Verapamil HCl (Calan Tab) 80 mg PO Q8H [facility] Last Admin: 02/28/19 10:37 Dose: Not Given - Labs Labs: - Additional Findings Additional findings: - Constitutional Appears: No Acute Distress, Chronically Ill - Head Exam Head Exam: ATRAUMATIC - Eye Exam Eye Exam: EOMI, PERRL - Neck Exam Neck exam: Positive for: Full Rom - Respiratory Exam Respiratory Exam: NORMAL BREATHING PATTERN Additional comments: decreased breath sounds bibasilar no wheezing - Cardiovascular Exam Additional comments: Irregularly Irregular - GI/Abdominal Exam GI & Abdominal Exam: Normal Bowel Sounds, Soft Additional comments: NT, ND - Extremities Exam Additional comments: no edema B/L LE - Neurological Exam Neurological exam: Alert, Oriented x 3 Laboratory Results - last 72 hr 02/21/19 02/22/19 02/25/19 11:33 11:37 16:58 WBC RBC Hgb Hct MCV MCH MCHC RDW Plt Count Sodium Potassium Chloride Carbon Dioxide Anion Gap BUN Creatinine Est GFR ( Amer) Est GFR (Non-Af Amer) POC Glucose (mg/dL) 131 H 86 103 Random Glucose Calcium 02/25/19 02/26/19 02/26/19 21:38 05:00 05:00 WBC 3.5 L RBC 2.97 L Hgb 10.0 L Hct 30.5 L MCV 102.7 H D MCH 33.6 H MCHC 32.7 L RDW 21.5 H Plt Count 65 L D Sodium 135 Potassium 4.6 Chloride 100 Carbon Dioxide 28 Anion Gap 12 BUN 10 Creatinine 0.6 L Est GFR ( Amer) > 60 Est GFR (Non-Af Amer) > 60 POC Glucose (mg/dL) 105 Random Glucose 68 L Calcium 8.6 02/26/19 02/26/19 02/26/19 05:13 06:34 10:40 WBC RBC Hgb Hct MCV MCH MCHC RDW Plt Count Sodium Potassium Chloride Carbon Dioxide Anion Gap BUN Creatinine Est GFR ( Amer) Est GFR (Non-Af Amer) POC Glucose (mg/dL) 71 108 136 H Random Glucose Calcium 02/26/19 02/26/19 02/27/19 16:06 21:10 05:10 WBC RBC Hgb Hct MCV MCH MCHC RDW Plt Count Sodium Potassium Chloride Carbon Dioxide Anion Gap BUN Creatinine Est GFR ( Amer) Est GFR (Non-Af Amer) POC Glucose (mg/dL) 158 H 118 H 102 Random Glucose Calcium 02/27/19 02/27/19 02/27/19 10:56 15:49 22:20 WBC RBC Hgb Hct MCV MCH MCHC RDW Plt Count Sodium Potassium Chloride Carbon Dioxide Anion Gap BUN Creatinine Est GFR ( Amer) Est GFR (Non-Af Amer) POC Glucose (mg/dL) 117 H 183 H 119 H Random Glucose Calcium 02/28/19 02/28/19 02/28/19 05:32 11:11 15:52 WBC RBC Hgb Hct MCV MCH MCHC RDW Plt Count Sodium Potassium Chloride Carbon Dioxide Anion Gap BUN Creatinine Est GFR ( Amer) Est GFR (Non-Af Amer) POC Glucose (mg/dL) 114 H 132 H 108 Random Glucose Calcium Microbiology 02/20/19 18:28 Sputum Gram Stain - Final 02/20/19 18:28 Sputum Sputum Culture - Final Stenotrophomonas Maltophilia 02/22/19 18:11 Naris MRSA Culture (Admit) - Final MRSA NOT DETECTED 02/15/19 10:20 Bronchial Washings Fungal Culture - Final Henny Glabrata 02/15/19 10:20 Other: Please Indicate Mycobacterial Culture - Preliminary 02/17/19 01:05 Sputum Gram Stain - Final 02/17/19 01:05 Sputum Sputum Culture - Final NORMAL ORAL KRISS 02/11/19 07:09 Naris MRSA Culture (Admit) - Final MRSA NOT DETECTED 02/09/19 19:00 Naris MRSA Culture (Admit) - Final MRSA NOT DETECTED 02/03/19 19:35 Blood-Venous Blood Culture - Final NO GROWTH AFTER 5 DAYS 02/03/19 19:35 Blood-Venous Gram Stain - Final TEST NOT PERFORMED 02/03/19 19:35 Blood-Venous Blood Culture - Final NO GROWTH AFTER 5 DAYS 02/03/19 19:35 Blood-Venous Gram Stain - Final TEST NOT PERFORMED 02/03/19 08:00 Sputum Gram Stain - Final 02/03/19 08:00 Sputum Sputum Culture - Final NORMAL ORAL KRISS 02/04/19 06:03 Naris MRSA Culture (Admit) - Final MRSA NOT DETECTED 02/03/19 20:50 Urine,Clean Catch Urine Culture - Final No Growth (<1,000 CFU/ML) Assessment and Plan (1) COPD exacerbation Status: Acute (2) HCAP (healthcare-associated pneumonia) Status: Acute (3) Paroxysmal atrial fibrillation with rapid ventricular response Status: Acute (4) CHF (congestive heart failure) Status: Acute (5) COPD (chronic obstructive pulmonary disease) Status: Chronic (6) Acute respiratory failure with hypoxia and hypercarbia Status: Acute - Assessment and Plan (Free Text) Assessment: A/P- 73 year old male with h/o RA on streoids and Plaquenil, COPD, admitted with copd exacerbation, hypercapneic resp faillure and zoster on abdomen . zoster has resolved , had completed course of acyclovir as per Primary doc. s/p bronch few days ago which as per supervisor [employer] had shown thick purulent fluid . afebrile blood cx- neg x 3 sputum cx- stenotrophomonas 02/03/2019-\BAl fungal and AFB smear- neg so far except yeast BAL cytology report- negative for malignancy, mixed bacteria and some fungal possible henny ( as per report). Plan- Continue with IV bactrim for stenotrophomonas in sputum cx. day #5 advise 7 more days of bactrim. advise to continue with meropenem day #9 advise 1 more day of meropnem. continue with fluconazole for henny in BAL.day #10 d/c fluconazole today.
--- NOTE | 2019-02-28 12:19 | RAD ---
Date of service: 02/28/2019 HISTORY: Pneumonia. COMPARISON: Multiple serial examinations preceding the most recent study: 02/23/2019. FINDINGS: LUNGS: Infiltrates right greater than left. Stable lower lobe PLEURA: No significant pleural effusion identified, no pneumothorax apparent. CARDIOVASCULAR: No atherosclerotic calcification present No significant interval change compared to the prior examination(s). OSSEOUS STRUCTURES: No significant abnormalities. VISUALIZED UPPER ABDOMEN: Normal. OTHER FINDINGS: None. IMPRESSION: Stable lower lobe infiltrates particularly the right lower lobe. No new findings detected.
--- NOTE | 2019-02-28 19:23 | PN ---
DATE: 02/28/2019 SUBJECTIVE: The patient is seen today 02/28/2019. He is short of breath and required BiPAP. PHYSICAL EXAMINATION: VITAL SIGNS: Blood pressure 114/67, temperature 98.4, respiratory rate 20, and pulse 111. HEENT: Pupils equal, reactive to light. Normal-appearing mucosa of the conjunctivae, oropharynx and nasal membrane mucosa. NECK: Supple. No JVD. No carotid bruit. No lymph node. No thyromegaly. CHEST AND LUNGS: Bilateral symmetrical expansion. Good air exchange. Few scattered rhonchi. No rales. CARDIOVASCULAR: PMI not localized. S1, S2, no additional sounds. ABDOMEN: Normoactive bowel sounds. No tenderness, no organomegaly. No masses. EXTREMITIES: No cyanosis, no clubbing, no edema. CENTRAL NERVOUS SYSTEM: Alert, awake, oriented x2. No neurological deficit could be appreciated. ASSESSMENT: Pneumonia, hypercapnic respiratory failure requires intermittent bilevel positive airway pressure, advanced rheumatoid arthritis, coronary artery disease status post coronary artery bypass graft. PLAN: Continue current medications and antibiotics and BiPAP as needed. Follow ID and pulmonary recommendations. Physical therapy and plan to discharge to subacute rehabilitation. Michaela Wood MD
--- NOTE | 2019-02-28 21:59 | PN ---
DATE: 02/28/2019 SUBJECTIVE: The patient became very tachycardic when physical therapy was attempted yesterday. He still has very poor appetite and mildly dyspneic. PHYSICAL EXAMINATION: VITAL SIGNS: Blood pressure 114/67, heart rate 111, temperature 98.4, respirations 20. HEENT: Pale conjunctivae. CHEST: Bibasilar rhonchi. HEART: S1, S2 regular. ABDOMEN: Soft. EXTREMITIES: No edema. LABORATORY DATA: Today's blood sugars 114, 132 and 108 respectively. Today's portable chest x-ray report, stable lower lobe infiltrate, particularly right lower lobe. No new findings detected. ASSESSMENT: 1. Bilateral pneumonia. 2. Exacerbation of chronic obstructive lung disease. 3. Runs of multifocal atrial tachycardia. 4. Coronary artery disease with history of coronary artery bypass surgery. 5. Paroxysmal atrial fibrillation and atrial flutter. 6. Pancytopenia. RECOMMENDATIONS: Continue Calan at 80 mg every 8 hours, Diamox 250 mg daily, IV Diflucan at 200 mg daily, lactulose 20 mg p.o. every 4 hours, Lipitor 20 mg once a day, Medrol 4 mg once a day, IV meropenem at 1 g every 8 hours, Plaquenil 200 mg daily, IV Bactrim at 300 mg every 8 hours, and Xopenex inhaler every 4 hours p.r.n. Geo Whitmore MD
[2019-02-28] MEDS: POLYETHYLENE GLYCOL 3350 17 GM/Dose PACKET PO SCH (22:54)
--- NOTE | 2019-02-28 23:19 | CP.PCM.PN ---
Subjective - Date & Time of Evaluation Date of Evaluation: 02/28/19 Time of Evaluation: 12:00 - Subjective Subjective: Feels tired today. Objective - Vital Signs/Intake and Output Vital Signs (last 24 hours): Temp Pulse Resp BP Pulse Ox 99.1 F 115 H 22 112/64 100 02/28/19 20:08 02/28/19 20:08 02/28/19 20:08 02/28/19 20:08 02/28/19 20:08 - Medications Medications: Current Medications Acetaminophen (Tylenol 325mg Tab) 650 mg PO Q6 PRN PRN Reason: Pain, Mild (1-3) Last Admin: 02/27/19 13:37 Dose: 650 mg Acetaminophen/Butalbital/Caffeine (Fioricet) 1 tab PO Q6 PRN PRN Reason: Headache Last Admin: 02/27/19 18:51 Dose: 1 tab Acetazolamide (Diamox 250 Mg Tab) 250 mg PO DAILY [facility] Last Admin: 02/28/19 08:52 Dose: 250 mg Artificial Tears (Artificial Tears) 2 drop OU Q4 PRN PRN Reason: Dry eyes Last Admin: 02/27/19 10:31 Dose: 2 drop Atorvastatin Calcium (Lipitor) 20 mg PO HS [facility] Last Admin: 02/28/19 22:53 Dose: 20 mg Baclofen (Lioresal) 10 mg PO DAILY [facility] Last Admin: 02/28/19 08:54 Dose: 10 mg Docusate Sodium (Colace) 100 mg PO Q12 [facility] Last Admin: 02/28/19 22:32 Dose: 100 mg Famotidine (Pepcid) 20 mg PO BID [facility] Last Admin: 02/28/19 17:48 Dose: 20 mg Guaifenesin/Dextromethorphan (Robitussin Dm) 10 ml PO Q6 PRN PRN Reason: Cough Last Admin: 02/28/19 17:57 Dose: 10 ml Hydroxychloroquine Sulfate (Plaquenil) 200 mg PO DAILY [facility]; Protocol Last Admin: 02/28/19 08:55 Dose: 200 mg Meropenem 1 gm/ Sodium (Chloride) 100 mls @ 100 mls/hr IVPB Q8 [facility]; Protocol Last Admin: 02/28/19 17:56 Dose: 100 mls/hr Trimethoprim/Sulfamethoxazole (300 mg/ Dextrose) 500 mls @ 250 mls/hr IVPB Q8 @0700,1500,2300 [facility]; Protocol Last Admin: 02/28/19 22:51 Dose: 250 mls/hr Insulin Human Regular (Humulin R) 0 units SC ACHS [facility]; Protocol Last Admin: 02/28/19 17:55 Dose: Not Given Ipratropium [place] (Atrovent) 0.5 mg IH RQID [facility] Last Admin: 02/28/19 19:03 Dose: Not Given Lactulose (Enulose) 20 gm PO DAILY PRN PRN Reason: Constipation Lactulose (Enulose) 20 gm PO Q4 [facility] Last Admin: 02/28/19 22:54 Dose: Not Given Levalbuterol HCl (Xopenex) 1.25 mg INH RQ4 PRN PRN Reason: Shortness of Breath Last Admin: 02/28/19 18:11 Dose: 1.25 mg Lidocaine (Lidoderm) 2 ea TD DAILY [facility] Last Admin: 02/28/19 08:54 Dose: Not Given Meclizine HCl (Antivert) 12.5 mg PO BID [facility] Last Admin: 02/28/19 17:47 Dose: 12.5 mg Methylprednisolone (Medrol) 4 mg PO DAILY [facility] Last Admin: 02/28/19 08:55 Dose: 4 mg Montelukast Sodium (Singulair) 10 mg PO HS [facility] Last Admin: 02/28/19 22:31 Dose: 10 mg Polyethylene Glycol (Miralax) 17 gm PO HS [facility] Last Admin: 02/28/19 22:54 Dose: Not Given Tamsulosin HCl (Flomax) 0.4 mg PO Q12 [facility] Last Admin: 02/28/19 22:31 Dose: 0.4 mg Temazepam (Restoril) 15 mg PO HS PRN PRN Reason: Insomnia Last Admin: 02/28/19 08:59 Dose: 15 mg Verapamil HCl (Calan Tab) 80 mg PO Q8H [facility] Last Admin: 02/28/19 18:55 Dose: 80 mg - Labs Labs: 02/26/19 05:00 02/26/19 05:00 PT 9.7 Seconds (9.8-13.1) L 02/03/19 19:35 INR 0.9 02/03/19 19:35 APTT 31.2 Seconds (25.6-37.1) 02/11/19 16:24 - Head Exam Head Exam: ATRAUMATIC - Eye Exam Eye Exam: Normal appearance - ENT Exam ENT Exam: Mucous Membranes Dry - Respiratory Exam Respiratory Exam: Decreased Breath Sounds - Cardiovascular Exam Cardiovascular Exam: +S1, +S2 - GI/Abdominal Exam GI & Abdominal Exam: Normal Bowel Sounds Assessment and Plan (1) Pancytopenia Assessment & Plan: prior improvement in cytopenias when holding hydroxychloroquine; held and now resumed WBC and H/H improved, plt improved - okay to resume heparin if plt > 50,000 normal iron/b12/folate stores transfusion support PRN Status: Acute (2) Pancreatic mass Assessment & Plan: prior elevation in chromogranin A level; repeated ?neuroendocrine tumor not a good surgical candidate, will cont. to monitor Status: Acute
[2019-03-01] MEDS: Meropenem 1 GM in Sodium Chloride 0.9% 100 ML IVPB SCH ×3 (00:38→17:11)
[2019-03-01] MEDS: Insulin Regular 100 units/ml SC SCH ×4 (06:36→21:38)
[2019-03-01] MEDS: Ipratropium 0.02% Inhal Soln (0.5 mg/2.5 ml) UD IH SCH ×4 (07:47→19:10)
[2019-03-01] MEDS: Sulfamethoxazole/Trimethoprim 300 MG in Dextrose 5% In Water 500 ML IVPB SCH ×3 (08:52→23:23)
[2019-03-01] MEDS: Lidocaine 5% Patch TD SCH (08:59)
--- NOTE | 2019-03-01 14:26 | PCM.RRT ---
<Sarah Barrios - Last Filed: 03/01/19 14:24> CALL TAKER Nurse Assessment - Situation CALL TAKER Responder Arrival Time: 13:48 Location: Telemetry Room Number: 405-1 CALL TAKER Reason for Call: Bradycardia (30's) - IV IV Inserted during CALL TAKER?: No IV Fluids Initiated During CALL TAKER?: NORMAL SALINE BOLUS OF 500 New IV Insertion Tolerance:: Poor - Respiratory Oxygen Delivery Method: Mask Received Nebulizer Treatments: No Was the Patient Ventilated with Bag/Mask 100% O2?: No Secretions Suctioned?: No Was the Patient Intubated?: No Was the Patient Placed on a Ventilator?: No - Diagnostic Test Ordered EKG: No Chest X-Ray: No CT Scan: No - Stat Labs Ordered CALL TAKER Stat Labs Ordered: ABG CALL TAKER Other Labs Ordered: EKG CPR started during CALL TAKER?: Yes - Vital Signs Vital Signs: Rapid Response Vital Sign Blood Pressure 70/50 Pulse Rate 30 Oxygen Saturation 98% on mask - Evon Coma Scale Coma Scale Eye Opening: No response Coma Scale Motor: None Coma Scale Verbal: No response Coma Scale Total: 3 - Time CALL TAKER Ended Time CALL TAKER Ended: 13:50 - Recommendations CALL TAKER Level of Care Recommendations: Transfer to ICU I.Reason for CALL TAKER - A) Acute Change in Patient: (Select all that apply): Acute change in heart rate less than 50 or greater than 120 (Heart rate less than 30 Bpm) Subjective: 73 yo male admitted for Pneumonia and hypercapnic failure,CALL TAKER called by RN because of bradycardia in the 30's. Patient unresponsive. ABG and EKG were ordered stat. Physical Exam: NO pulse noted on exam. CODE BLUE was immediately called. - Neurological Status Other (Please specify): Unresponsive - Respiratory Oxygen Delivery Method: Face Mask @%, Non Rebreather @% - Constitutional Appears: Toxic, Chronically Ill Additional Comments: Skin is Cold to touch, cyanotic extremities - Eyes Additional Comments: Pupils are not reactive bilaterally to light source. - Cardiovascular Exam Cardiovascular Exam: absent: REGULAR RHYTHM Additional comments: No pulse - Neurological Exam Additional exam: None responsive to verbal stimuli or painful stimuli. Does not spontaneously open eyes. Plan - Assessment of Findings&Treatment Plan 73 yo male admitted for Pneumonia and hypercapnic failure,CALL TAKER called by KILLIAN yu se of bradycardia in the 30's, found to be pulseless which lead to a code blue. 1. Bradycardia/ Cardiac Arrest - initial HR at beginning of CALL TAKER was in the 30's - patient found to be unresponsive - No pulse on exam - Code blue call at this time <Ramandeep Whaley - Last Filed: 03/02/19 22:09> CALL TAKER Nurse Assessment - Vital Signs Vital Signs: Rapid Response Vital Sign Blood Pressure 70/43 Pulse Rate 160 Respiratory Rate 22 Temperature 97 F Oxygen Saturation 56 - Vital Signs at end of CALL TAKER Vital Signs at end of CALL TAKER: Rapid Response End Vital Sign Blood Pressure 70/50 Pulse Rate 75 Respiratory Rate 20 O2 Sat by Pulse Oximetry 97 Attending/Attestation - Attestation I have personally seen and examined this patient.: Yes I have fully participated in the care of the patient.: Yes I have reviewed all pertinent clinical information, including history, physical exam and plan: Yes Notes (Text): agree with findings and plan as above
[2019-03-01 15:31] LABS: ABG ALLEN TEST YES; ARTERIAL BLOOD GAS HCO3 16.7 mmol/L (21-28); ARTERIAL BLOOD GAS O2 SAT 77.8 % (95-98); ARTERIAL BLOOD GAS PCO2 83 mm/Hg (35-45); ARTERIAL BLOOD GAS PH 7.05 (7.35-7.45); ARTERIAL BLOOD GAS PO2 44 mm/Hg (80-100); ARTERIAL BLOOD GAS TCO2 25.5 mmol/L (22-28)
--- NOTE | 2019-03-01 16:08 | RAD ---
Date of service: 03/01/2019 HISTORY: intubation COMPARISON: Portable chest 02/28/2019, 10:54 a.m.. TECHNIQUE: 1 view obtained. FINDINGS: LUNGS: An endotracheal tube is identified placed with the tip terminating approximately 1 cm above the anay. It approaches the right mainstem bronchus origin. Consider adjustment. Left PICC insertion identified terminating at superior vena cava. Improved aeration is appreciated at the right base with limited airspace disease remaining there. Reticular changes are not significantly changed at the left base without alveolitis. PLEURA: No pneumothorax or definite pleural effusion bilaterally. CARDIOVASCULAR: Cardiac silhouette appears stable. No definite pulmonary vascular congestion. Calcific atherosclerotic changes are seen related to the thoracic aorta. OSSEOUS STRUCTURES: Upper thoracic spinal fusion hardware reiterated. VISUALIZED UPPER ABDOMEN: Gas seen distending the stomach and large bowel loops in the visualized upper abdomen. OTHER FINDINGS: None. IMPRESSION: Improved aeration status post intubation as discussed above. Tip of endotracheal tube terminates immediately proximal to the origin of the right mainstem bronchus but appears to terminate a 1 cm above the anay as well. Consider potential adjustment. Left PICC inserted in the interval terminating in SVC. Diminished right basilar infiltrate with limited infiltrate remaining there. Reticular changes are reiterated at the left base. No pneumothorax or pleural effusion bilaterally.
[2019-03-01 16:46] LABS: BASO % 0.2 % (0.0-2.0); EOS % 0.1 % (0.0-4.0); HEMOGLOBIN 7.5 g/dL (12.0-18.0); LYMPH # 0.3 K/uL (1.0-4.3); LYMPH % 13.2 % (20.0-40.0); MEAN CELL VOLUME 102.1 fl (80.0-94.0); MEAN CORPUSCULAR HEMOGLOBIN 32.5 pg (27.0-31.0); MEAN CORPUSCULAR HGB CONC 31.9 g/dL (33.0-37.0); MONO # 0.1 K/uL (0.0-0.8); MONO % 3.9 % (0.0-10.0); NEUT # 2.2 K/uL (1.8-7.0); NEUT % 82.6 % (50.0-75.0); NRBC % 4.7 % (0.0-0.0); RBC 2.3 Mil/uL (4.40-5.90); RED CELL DISTRIBUTION WIDTH 19.8 % (11.5-14.5); WHITE BLOOD COUNT 2.6 K/uL (4.8-10.8)
[2019-03-01 17:00] LABS: INR 1.1; PROTHROMBIN TIME 12.8 Seconds (9.8-13.1)
[2019-03-01 17:03] LABS: PARTIAL THROMBOPLASTIN TIME 44.5 Seconds (25.6-37.1)
--- NOTE | 2019-03-01 17:24 | PCM.PROC ---
<Farzaneh Knutson - Last Filed: 03/01/19 17:22> Procedures Attestation:: I certify that I have explained the specified Operation(s) or Procedure(s), risks, benefits and reasonable alternatives to the Patient and/or other person responsible. The opportunity was given to ask questions and all questions answered - Arterial Line Right Femoral Aseptic technique was employed throughout the procedure: Hand Hygiene done prior to procedure, Full sterile barriers (mask, hair cover, sterile gown, sterile gloves), Full body sterile drape, Chloraprep Antiseptic: 2 minute prep for Femoral Time Out Performed: Yes Pt. placed on Pulse Ox Monitor: Yes Central Line Prep: Chlorhexidine-Alcohol Combination Local Anesthesia Used: Lidocaine 1% Amount of Anesthesia Used (mls): 4 Ultrasound Used for Placement: No Gauge (Size): 20 gauge Technique Used: Guide Wire Technique Secured by: Suture Post procedure dressing: Gauze, Clear vapor permeable, Chlorhexidine disc (Biopatch) Patient Tolerated Procedure: no complications Immediate Complications: none - Central Line Placement Left Subclavian Triple Lumen Catheter Aseptic technique was employed throughout the procedure: Hand Hygiene done prior to procedure, Full sterile barriers (mask, hair cover, sterile gown, sterile gloves), Full body sterile drape, Chloraprep Antiseptic: 30 second prep for IJ or SC sites CVP Time Out Performed: Yes Pt. Placed on Pulse Ox Monitor: Yes Central Line Prep: Chlorhexidine-Alcohol Combination Local Anesthesia Used: Lidocaine 1% Amount of Anesthesia Used (mls): 4 Ultrasound Used for Placement: No Central Line Lumen Inserted: triple Central Line Length: 16 cm Post Procedure: Sutured in Place, Good Blood Return, All Ports Aspirated, Flushed, Capped, Sterile Dressing Applied Secured by: Suture Post procedure dressing: Clear vapor permeable, Chlorhexidine disc (Biopatch) Post Procedure X-Ray: Yes Patient Tolerated Procedure: Well, No Complications Immediate Complications: None <Lester Barcenas - Last Filed: 03/01/19 17:55> Procedures Attestation:: I certify that I have explained the specified Operation(s) or Procedure(s), risks, benefits and reasonable alternatives to the Patient and/or other person responsible. The opportunity was given to ask questions and all questions answered - Arterial Line Right Femoral Additional Comments: Procedure performed in ICU under emergent conditions, indications include need for [id number] measurements during vasopressor titration and frequent ABGs. Procedure performed by Resident physician Dr. Loli Knutson under my supervision at the bedside in its entirety. Patient tolerated procedure well and no immediate complications noted. - Central Line Placement Left Subclavian Triple Lumen Catheter Additional Comments: Procedure performed in ICU under emergent conditions, indications include need for vasopressor infusion and rapid IVF infusion, given poor peripheral IV access. Procedure performed by Resident physician Dr. Loli Knutson under my supervision at the bedside in its entirety. Patient tolerated procedure well and no immediate complications noted. Post-procedure CXR shows satisfactory placement of tip of TLC in distal SVC, no PTX seen.
[2019-03-01 17:27] LABS: ABG ALLEN TEST YES; ARTERIAL BLOOD GAS O2 SAT 100.1 % (95-98); ARTERIAL BLOOD GAS PCO2 50 mm/Hg (35-45); ARTERIAL BLOOD GAS PH 7.24 (7.35-7.45); ARTERIAL BLOOD GAS PO2 90 mm/Hg (80-100); ARTERIAL BLOOD GAS TCO2 22.9 mmol/L (22-28)
[2019-03-01 17:44] LABS: ALB/GLOB RATIO 1.1 (1.0-2.1); ALBUMIN 2.3 g/dL (3.5-5.0); ALT/SGPT 1105 U/L (21-72); AST/SGOT 1369 U/L (17-59); BLOOD UREA NITROGEN 15 mg/dl (9-20); CALCIUM 7.9 mg/dL (8.4-10.2); GFR NON-AFRICAN AMERICAN > 60
--- NOTE | 2019-03-01 17:44 | PCM.PROC ---
Procedures Attestation:: I certify that I have explained the specified Operation(s) or Procedure(s), risks, benefits and reasonable alternatives to the Patient and/or other person responsible. The opportunity was given to ask questions and all questions answered - Intubation Sedative: None Laryngoscope: Amber ET Tube Size: 8.0 ET Tube Secured at Depth: 21 ET Tube Secured Locarion: Lips ET Tube Placement Confirmation: Visualized Passing Through Cords, Breath Sounds Equal Bilaterally, No Breath Sounds Over Epigastrum, Confirmation w/Capnometry Patient Tolerated Procedure: Well Procedure Immediate Complications: None Additional comments: Oral intubation performed during Code Blue procedure after rastafari of stable rhythm and as patient remained unresponsive and apneic. CXR showed distal tip of ETT near anay, subsequently re-positioned 2 cm higher.
[2019-03-01] MEDS: Sodium Chloride 0.9% 1,000 ML IV SCH (18:06)
--- NOTE | 2019-03-01 18:18 | PN ---
DATE: 03/01/2019 SUBJECTIVE: The patient is lethargic, currently on BiPAP. He is confused. The patient's son is at the bedside. PHYSICAL EXAMINATION: VITAL SIGNS: Blood pressure 109/63, heart rate 103, temperature 98.5, respirations 18. HEENT: Pale conjunctivae. CHEST: Bilateral rhonchi. HEART: S1 and S2, regular. EXTREMITIES: No edema. LABORATORY DATA: Today's blood sugars 115 and 149. ASSESSMENT: 1. Altered mental status. 2. Pneumonia. 3. Paroxysmal atrial fibrillation and atrial flutter. 4. Runs of multifocal atrial tachycardia. 5. Pancytopenia. RECOMMENDATIONS: Continue current Atrovent inhaler 0.5 mg b.i.d. Continue Calan at 80 mg every 8 hours, Diamox 250 mg once a day, Flomax 0.4 mg twice a day, Medrol 4 mg once a day, meropenem at 1 g intravenously every 8 hours, IV Bactrim at 300 mg every 8 hours. The case was discussed with Dr. Wood and I will order ABGs to rule out hypercapnia. Geo Whitmore MD
--- NOTE | 2019-03-01 18:32 | CP.CCUPN ---
CCU Subjective - Physician Review Subjective (Free Text): Code Blue Note: AVIATION ELECTRICAL TECHNICIAN called, which quickly progressed to Code Blue after noting unresponsiveness, apnea and bradycardia deteriorating to near-asystole. CPR and ACLS started immediately given no known Advance Directives. High quality chest compressions initiated and ensured, multiple doses of Atropine and Epi given in attempt restore rhythm. ROSC achieved with attainment of sinus rhythm with narrow complex QRS and barely palpable femoral pulses. Fluid challenge with NSS 1 L given and patient prepared fro TLC CVC access for vasopressor infusion. Subsequently orally intubated with #8.0 mm ETT and placed on MV support and transferred to ICU. No prolonged down time noted as Nurse reports immediately noting patient unresponsiveness and called AVIATION ELECTRICAL TECHNICIAN. Comatose state noted post- resuscitation, GCS = 3T. [facility] to be notified.
[2019-03-01] MEDS ORDERED: Meropenem 1 GM in Sodium Chloride 0.9% 100 ML IVPB ONE (19:19)
[2019-03-01] MEDS: Phenylephrine 30 MG in Sodium Chloride 0.9% 250 ML IV SCH (19:40)
[2019-03-01] MEDS ORDERED: Sodium Chloride 0.9% 1,000 ML IV SCH (20:30)
[2019-03-01] MEDS: POLYETHYLENE GLYCOL 3350 17 GM/Dose PACKET PO SCH (21:29)
[2019-03-02] MEDS: Meropenem 1 GM in Sodium Chloride 0.9% 100 ML IVPB SCH ×3 (00:51→16:24)
--- NOTE | 2019-03-02 01:17 | PN ---
DATE: 03/01/2019 DAILY PROGRESS NOTE SUBJECTIVE: The patient is seen today, 03/01/2019. The patient was lethargic at the time when he was seen, and he has been on BiPAP. The patient's heart rate was slowed down and COVER MAKER was called. The patient lost pulse and he was coded and intubated. The patient regained pulse and transferred to intensive care unit. PHYSICAL EXAMINATION: VITAL SIGNS: Blood pressure 96/45, temperature 97.3, respiratory rate 15, and pulse 79. HEENT: Normal-appearing mucosa with conjunctivae, intubated. NECK: No JVD. No carotid bruit. CHEST AND LUNGS: Good air entry bilaterally. CARDIOVASCULAR SYSTEM: PMI not localized. S1 and S2. No additional sounds. ABDOMEN: Decreased bowel sounds. No organomegaly. No masses. EXTREMITIES: Ulnar deviation of both hands. No cyanosis, no clubbing, and no edema. CENTRAL NERVOUS SYSTEM: The patient is lethargic, intubated on ventilator. central catheter was placed by department of sociology chair. ASSESSMENT AND PLAN: Respiratory failure, status post cardiopulmonary resuscitation, pneumonia, hypercapnic respiratory failure with acute respiratory acidosis, currently on ventilator. Discussed with the patient's daughter and Cardiology. Guarded prognosis. Michaela Wood MD
[2019-03-02 05:27] LABS: ABG ALLEN TEST YES; ARTERIAL BLOOD GAS HCO3 21.7 mmol/L (21-28); ARTERIAL BLOOD GAS O2 SAT 99.6 % (95-98); ARTERIAL BLOOD GAS PCO2 44 mm/Hg (35-45); ARTERIAL BLOOD GAS PH 7.31 (7.35-7.45); ARTERIAL BLOOD GAS PO2 99 mm/Hg (80-100); ARTERIAL BLOOD GAS TCO2 23.6 mmol/L (22-28)
[2019-03-02 06:38] LABS: BASO % 0.4 % (0.0-2.0); EOS % 0.1 % (0.0-4.0); LYMPH # 0.5 K/uL (1.0-4.3); LYMPH % 9.4 % (20.0-40.0); MEAN CELL VOLUME 95.4 fl (80.0-94.0); MEAN CORPUSCULAR HGB CONC 33.6 g/dL (33.0-37.0); MEAN PLATELET VOLUME 9.9 fl (7.2-11.7); MONO # 0.3 K/uL (0.0-0.8); MONO % 6.2 % (0.0-10.0); NEUT % 83.9 % (50.0-75.0); NRBC % 1.8 % (0.0-0.0); PLATELET COUNT 63 K/uL (130-400); RBC 3.36 Mil/uL (4.40-5.90); RED CELL DISTRIBUTION WIDTH 18.9 % (11.5-14.5); WHITE BLOOD COUNT 4.8 K/uL (4.8-10.8)
[2019-03-02] MEDS: Sulfamethoxazole/Trimethoprim 300 MG in Dextrose 5% In Water 500 ML IVPB SCH ×3 (06:40→22:59)
[2019-03-02] MEDS: Insulin Regular 100 units/ml SC SCH ×4 (06:41→21:19)
[2019-03-02 06:42] LABS: HEMOGLOBIN 10.8 g/dL (12.0-18.0)
[2019-03-02 06:55] LABS: AST/SGOT 1144 U/L (17-59)
[2019-03-02 06:57] LABS: ALB/GLOB RATIO 1.1 (1.0-2.1); ALBUMIN 2.4 g/dL (3.5-5.0); ALT/SGPT 929 U/L (21-72); BLOOD UREA NITROGEN 19 mg/dl (9-20); CALCIUM 7.9 mg/dL (8.4-10.2); GFR NON-AFRICAN AMERICAN 54
[2019-03-02] MEDS: Ipratropium 0.02% Inhal Soln (0.5 mg/2.5 ml) UD IH SCH ×4 (07:25→19:05)
--- NOTE | 2019-03-02 07:46 | RAD ---
Date of service: 03/02/2019 HISTORY: intubated COMPARISON: Portable chest 03/01/2019 3:33 p.m.. TECHNIQUE: 1 view obtained. FINDINGS: LUNGS: Stable positioning of endotracheal tube approximately 1 cm above the anay. Orogastric tube unchanged as well as left central venous line. Low pulmonary volume with image likely captured at late expiratory phase. Bilateral basilar atelectasis or infiltrates are identified with opacity appearing increased bilaterally. PLEURA: Small bilateral pleural effusions are not excluded. No pneumothorax bilaterally. Patient's lower face obscures right apex. CARDIOVASCULAR: Calcific atherosclerotic changes are seen related to the thoracic aorta. Stable cardiac silhouette. Borderline pulmonary vascular congestion. OSSEOUS STRUCTURES: Thoracic spinal fusion hardware reiterated. VISUALIZED UPPER ABDOMEN: Diminishing gas in stomach and upper abdominal bowel. OTHER FINDINGS: None. IMPRESSION: Increased bilateral airspace disease however this could be a function of atelectasis given low inspiratory volumes. Small bowel pleural effusions are in question. No pneumothorax bilaterally. Borderline pulmonary vascular congestion. Stable supporting tubes and catheters.
[2019-03-02] MEDS ORDERED: Sodium Chloride 3% 500 ML IV SCH ×2 (08:00)
--- NOTE | 2019-03-02 08:52 | RAD ---
Date of service: 03/01/2019 HISTORY: NGT COMPARISON: Portable chest 03/01/2019 3:33 p.m.. TECHNIQUE: 1 view obtained. FINDINGS: LUNGS: Endotracheal tube terminates 1 cm above the anay with orogastric tube now placed terminating in the gastric viscus region. Left central venous line unchanged. Stable infiltrate right base with reticular changes at the left base again evident. Limited alveolar component may be developing the left base. PLEURA: Small pleural effusion in question with none apparent at the right. No pneumothorax bilaterally. CARDIOVASCULAR: Calcific atherosclerotic changes are seen related to the thoracic aorta. Cardiac silhouette appears stable. Hilar vascular markings appears slightly increased, borderline for pulmonary vascular congestion. OSSEOUS STRUCTURES: No significant abnormalities. VISUALIZED UPPER ABDOMEN: Normal. OTHER FINDINGS: None. IMPRESSION: Borderline pulmonary vascular congestion. Right basilar infiltrate stable. Reticular changes at the left base are reiterated with question of developing left basilar airspace disease. Interval orogastric tube deployment terminating at the region of the gastric viscus. Stable tubes and catheters otherwise.
[2019-03-02 09:21] LABS: BANDS 2 % (0-2); LYMPHOCYTE 9 % (20-50); MONOCYTE 6 % (0-10); NEUTROPHIL 82 % (42-75); NUCLEATED RED BLOOD CELL 2 % (0-0); PLATELET ESTIMATE DECREASED (NORMAL); REACTIVE LYMPHOCYTES 1 % (0-0); TOTAL CELLS COUNTED 100
[2019-03-02 09:23] LABS: ANISOCYTOSIS SLIGHT; HYPOCHROMIC SLIGHT; LARGE PLATELETS PRESENT; OVALOCYTES SLIGHT; TEARDROP CELLS SLIGHT
[2019-03-02] MEDS: Lidocaine 5% Patch TD SCH (09:34)
--- NOTE | 2019-03-02 09:44 | CARD ---
APPROVED REPORT Date of service: 03/01/2019 EKG Measurement Heart [id number] <Conclusion> Junctional rhythm Right bundle branch block Cannot rule out Inferior infarct, age undetermined Abnormal ECG
--- NOTE | 2019-03-02 11:19 | CP.PCM.PN ---
Subjective - Date & Time of Evaluation Date of Evaluation: 03/02/19 Time of Evaluation: 11:19 - Subjective Subjective: ID note- Pt. seen and examined today in ICU. abraham is s/p code blue and CPR yesterday and was intubated and transferred to ICU . he is on 2 pressors for hypotention. pt. intubated and not able to answer questions. lethargic. Objective - Vital Signs/Intake and Output Vital Signs (last 24 hours): Temp Pulse Resp BP Pulse Ox 99.3 F 101 H 16 110/49 L 95 03/02/19 10:00 03/02/19 10:00 03/02/19 10:00 03/02/19 10:00 03/02/19 10:00 Intake and Output: 03/02/19 03/02/19 06:59 18:59 Intake Total 6460 410.0 Output Total 200 Balance 6260 410.0 - Medications Medications: Current Medications Acetaminophen/Butalbital/Caffeine (Fioricet) 1 tab PO Q6 PRN PRN Reason: Headache Last Admin: 02/27/19 18:51 Dose: 1 tab Acetazolamide (Diamox 250 Mg Tab) 250 mg PO DAILY ARTEMIO Last Admin: 03/02/19 10:34 Dose: Not Given Baclofen (Lioresal) 10 mg PO DAILY ARTEMIO Last Admin: 03/01/19 08:59 Dose: 10 mg Guaifenesin/Dextromethorphan (Robitussin Dm) 10 ml PO Q6 PRN PRN Reason: Cough Last Admin: 02/28/19 17:57 Dose: 10 ml Hydroxychloroquine Sulfate (Plaquenil) 200 mg PO DAILY ARTEMIO; Protocol Last Admin: 03/01/19 08:54 Dose: 200 mg Meropenem 1 gm/ Sodium (Chloride) 100 mls @ 100 mls/hr IVPB Q8 ARTEMIO; Protocol Last Admin: 03/02/19 09:34 Dose: 100 mls/hr Trimethoprim/Sulfamethoxazole (300 mg/ Dextrose) 500 mls @ 250 mls/hr IVPB Q8@0700,1500,2300 ARTEMIO; Protocol Last Admin: 03/02/19 06:40 Dose: 250 mls/hr Sodium Chloride (Sodium Chloride 0.9%) 1,000 mls @ 1,000 mls/hr IV .Q1H ARTEMIO Stop: 03/02/19 15:02 Last Admin: 03/01/19 18:06 Dose: 1,000 mls/hr Phenylephrine HCl 30 mg/ (Sodium Chloride) 253 mls @ 10.12 mls/hr IV .Q24H ARTEMIO; Protocol Stop: 03/02/19 17:15 Last Titration: 03/02/19 10:32 Dose: 60 mcg/min, 30.36 mls/hr Sodium Chloride (Hypertonic Saline 3%) 500 mls @ 15 mls/hr IV .Q24H ARTEMIO Stop: 03/03/19 08:01 Last Admin: 03/02/19 09:23 Dose: 15 mls/hr Norepinephrine Bitartrate 16 (mg/ Sodium Chloride) 266 mls @ 2.49 mls/hr IV .Q24H ONE; Protocol Stop: 03/03/19 08:16 Last Titration: 03/02/19 10:30 Dose: 25 mcg/min, 24.94 mls/hr Insulin Human Regular (Humulin R) 0 units SC ACHS [facility]; Protocol Last Admin: 03/02/19 06:41 Dose: Not Given Ipratropium [place] (Atrovent) 0.5 mg IH RQID [facility] Last Admin: 03/02/19 07:25 Dose: 0.5 mg Lactulose (Enulose) 20 gm PO Q4 [facility] Last Admin: 03/02/19 09:23 Dose: Not Given Levalbuterol HCl (Xopenex) 1.25 mg INH RQ4 PRN PRN Reason: Shortness of Breath Last Admin: 02/28/19 18:11 Dose: 1.25 mg Lidocaine (Lidoderm) 2 ea TD DAILY [facility] Last Admin: 03/02/19 09:34 Dose: Not Given Meclizine HCl (Antivert) 12.5 mg PO BID [facility] Last Admin: 03/01/19 16:48 Dose: Not Given Morphine Sulfate (Morphine) 2 mg IVP Q2 PRN PRN Reason: Restlessness Pantoprazole Sodium (Protonix Inj) 40 mg IVP DAILY [facility] Last Admin: 03/02/19 09:36 Dose: 40 mg Tamsulosin HCl (Flomax) 0.4 mg PO Q12 ARTEMIO Last Admin: 03/01/19 20:11 Dose: Not Given Temazepam (Restoril) 15 mg PO HS PRN PRN Reason: Insomnia Last Admin: 02/28/19 08:59 Dose: 15 mg Verapamil HCl (Calan Tab) 80 mg PO Q8H ARTEMIO Last Admin: 03/02/19 03:00 Dose: Not Given - Labs Labs: - Constitutional Appears: Chronically Ill - Head Exam Head Exam: ATRAUMATIC - ENT Exam Additional comments: ET tube in place - Respiratory Exam Additional comments: decreased breath sounds bibasialr is on the vent - Cardiovascular Exam Cardiovascular Exam: Tachycardia, +S1, +S2 - GI/Abdominal Exam GI & Abdominal Exam: Soft, Normal Bowel Sounds Additional comments: ND, NT - Extremities Exam Extremities Exam: Normal Inspection - Neurological Exam Additional comments: opens his eyes when his name is called. - Additional Findings Additional findings: Laboratory Results - last 72 hr 02/27/19 02/27/19 02/28/19 15:49 22:20 05:32 WBC RBC Hgb Hct MCV MCH MCHC RDW Plt Count MPV Neut % (Auto) Lymph % (Auto) Harrison % (Auto) Eos % (Auto) Baso % (Auto) Neut # (Auto) Lymph # (Auto) Harrison # (Auto) Eos # (Auto) Baso # (Auto) Neutrophils % (Manual) Band Neutrophils % Lymphocytes % (Manual) Reactive Lymphs % Monocytes % (Manual) Nucleated RBC % Platelet Estimate Large Platelets Hypochromasia (manual) Anisocytosis (manual) Tear Drop Cells Ovalocytes PT INR APTT pCO2 pO2 HCO3 ABG pH ABG Total CO2 ABG O2 Saturation ABG Base Excess Isacc Test ABG Potassium A-a O2 Difference Sodium Chloride Glucose Lactate Vent Mode Mechanical Rate FiO2 Tidal Volume Crit Value Called To Crit Value Called By Crit Value Read Back Blood Gas Notified Time Potassium Carbon Dioxide Anion Gap BUN Creatinine Est GFR ( Amer) Est GFR (Non-Af Amer) POC Glucose (mg/dL) 183 H 119 H 114 H Random Glucose Calcium Phosphorus Magnesium Total Bilirubin AST ALT Alkaline Phosphatase Troponin I Total Protein Albumin Globulin Albumin/Globulin Ratio Arterial Blood Potassium Blood Type Antibody Screen Crossmatch BBK History Checked 02/28/19 02/28/19 02/28/19 11:11 15:52 21:04 WBC RBC Hgb Hct MCV MCH MCHC RDW Plt Count MPV Neut % (Auto) Lymph % (Auto) Harrison % (Auto) Eos % (Auto) Baso % (Auto) Neut # (Auto) Lymph # (Auto) Harrison # (Auto) Eos # (Auto) Baso # (Auto) Neutrophils % (Manual) Band Neutrophils % Lymphocytes % (Manual) Reactive Lymphs % Monocytes % (Manual) Nucleated RBC % Platelet Estimate Large Platelets Hypochromasia (manual) Anisocytosis (manual) Tear Drop Cells Ovalocytes PT INR APTT pCO2 pO2 HCO3 ABG pH ABG Total CO2 ABG O2 Saturation ABG Base Excess Isacc Test ABG Potassium A-a O2 Difference Sodium Chloride Glucose Lactate Vent Mode Mechanical Rate FiO2 Tidal Volume Crit Value Called To Crit Value Called By Crit Value Read Back Blood Gas Notified Time Potassium Carbon Dioxide Anion Gap BUN Creatinine Est GFR ( Amer) Est GFR (Non-Af Amer) POC Glucose (mg/dL) 132 H 108 111 H Random Glucose Calcium Phosphorus Magnesium Total Bilirubin AST ALT Alkaline Phosphatase Troponin I Total Protein Albumin Globulin Albumin/Globulin Ratio Arterial Blood Potassium Blood Type Antibody Screen Crossmatch BBK History Checked 03/01/19 03/01/19 03/01/19 05:21 11:19 13:49 WBC RBC Hgb Hct MCV MCH MCHC RDW Plt Count MPV Neut % (Auto) Lymph % (Auto) Harrison % (Auto) Eos % (Auto) Baso % (Auto) Neut # (Auto) Lymph # (Auto) Harrison # (Auto) Eos # (Auto) Baso # (Auto) Neutrophils % (Manual) Band Neutrophils % Lymphocytes % (Manual) Reactive Lymphs % Monocytes % (Manual) Nucleated RBC % Platelet Estimate Large Platelets Hypochromasia (manual) Anisocytosis (manual) Tear Drop Cells Ovalocytes PT INR APTT pCO2 pO2 HCO3 ABG pH ABG Total CO2 ABG O2 Saturation ABG Base Excess Isacc Test ABG Potassium A-a O2 Difference Sodium Chloride Glucose Lactate Vent Mode Mechanical Rate FiO2 Tidal Volume Crit Value Called To Crit Value Called By Crit Value Read Back Blood Gas Notified Time Potassium Carbon Dioxide Anion Gap BUN Creatinine Est GFR ( Amer) Est GFR (Non-Af Amer) POC Glucose (mg/dL) 115 H 149 H 149 H Random Glucose Calcium Phosphorus Magnesium Total Bilirubin AST ALT Alkaline Phosphatase Troponin I Total Protein Albumin Globulin Albumin/Globulin Ratio Arterial Blood Potassium Blood Type Antibody Screen Crossmatch BBK History Checked 03/01/19 03/01/19 03/01/19 15:27 16:40 16:40 WBC 2.6 L RBC 2.30 L Hgb 7.5 L D Hct 23.5 L MCV 102.1 H MCH 32.5 H MCHC 31.9 L RDW 19.8 H Plt Count 67 L MPV 11.0 Neut % (Auto) 82.6 H Lymph % (Auto) 13.2 L Harrison % (Auto) 3.9 Eos % (Auto) 0.1 Baso % (Auto) 0.2 Neut # (Auto) 2.2 Lymph # (Auto) 0.3 L Harrison # (Auto) 0.1 Eos # (Auto) 0.0 Baso # (Auto) 0.0 Neutrophils % (Manual) Band Neutrophils % Lymphocytes % (Manual) Reactive Lymphs % Monocytes % (Manual) Nucleated RBC % Platelet Estimate Large Platelets Hypochromasia (manual) Anisocytosis (manual) Tear Drop Cells Ovalocytes PT INR APTT pCO2 83 H* pO2 44 L* HCO3 16.7 L ABG pH 7.05 L* ABG Total CO2 25.5 ABG O2 Saturation 77.8 L ABG Base Excess -9.1 L Isacc Test Yes ABG Potassium 5.0 A-a O2 Difference 565.0 Sodium 119.0 L* 122 L Chloride 86.0 L 87 L Glucose 93 Lactate 6.1 H* Vent Mode A/c Mechanical Rate 12 FiO2 100.0 Tidal Volume 400 Crit Value Called To Dr matrha phillips Crit Value Called By 6075 Crit Value Read Back Y Blood Gas Notified Time 1530 Potassium 4.6 Carbon Dioxide 22 Anion Gap 18 BUN 15 Creatinine 1.0 Est GFR ( Amer) > 60 Est GFR (Non-Af Amer) > 60 POC Glucose (mg/dL) Random Glucose 98 Calcium 7.9 L Phosphorus 4.5 Magnesium 1.8 Total Bilirubin 1.3 AST 1369 H ALT 1105 H Alkaline Phosphatase 186 H D Troponin I 0.0680 Total Protein 4.5 L Albumin 2.3 L Globulin 2.2 Albumin/Globulin Ratio 1.1 Arterial Blood Potassium 5.0 Blood Type Antibody Screen Crossmatch BBK History Checked 03/01/19 03/01/19 03/01/19 16:40 16:45 17:22 WBC RBC Hgb Hct MCV MCH MCHC RDW Plt Count MPV Neut % (Auto) Lymph % (Auto) Harrison % (Auto) Eos % (Auto) Baso % (Auto) Neut # (Auto) Lymph # (Auto) Harrison # (Auto) Eos # (Auto) Baso # (Auto) Neutrophils % (Manual) Band Neutrophils % Lymphocytes % (Manual) Reactive Lymphs % Monocytes % (Manual) Nucleated RBC % Platelet Estimate Large Platelets Hypochromasia (manual) Anisocytosis (manual) Tear Drop Cells Ovalocytes PT 12.8 INR 1.1 APTT 44.5 H pCO2 50 H pO2 90 HCO3 20.0 L ABG pH 7.24 L ABG Total CO2 22.9 ABG O2 Saturation 100.1 H ABG Base Excess -6.3 L Isacc Test Yes ABG Potassium 4.5 A-a O2 Difference 561.0 Sodium 119.0 L* Chloride 90.0 L Glucose 123 H Lactate 2.6 H Vent Mode A/c Mechanical Rate 12 FiO2 100.0 Tidal Volume 400 Crit Value Called To Dara jeffrey rn Crit Value Called By 6075 Crit Value Read Back Y Blood Gas Notified Time 1727 Potassium Carbon Dioxide Anion Gap BUN Creatinine Est GFR ( Amer) Est GFR (Non-Af Amer) POC Glucose (mg/dL) 112 H Random Glucose Calcium Phosphorus Magnesium Total Bilirubin AST ALT Alkaline Phosphatase Troponin I Total Protein Albumin Globulin Albumin/Globulin Ratio Arterial Blood Potassium 4.5 Blood Type Antibody Screen Crossmatch BBK History Checked 03/01/19 03/01/19 03/02/19 17:50 21:22 05:06 WBC RBC Hgb Hct MCV MCH MCHC RDW Plt Count MPV Neut % (Auto) Lymph % (Auto) Harrison % (Auto) Eos % (Auto) Baso % (Auto) Neut # (Auto) Lymph # (Auto) Harrison # (Auto) Eos # (Auto) Baso # (Auto) Neutrophils % (Manual) Band Neutrophils % Lymphocytes % (Manual) Reactive Lymphs % Monocytes % (Manual) Nucleated RBC % Platelet Estimate Large Platelets Hypochromasia (manual) Anisocytosis (manual) Tear Drop Cells Ovalocytes PT INR APTT pCO2 pO2 HCO3 ABG pH ABG Total CO2 ABG O2 Saturation ABG Base Excess Isacc Test ABG Potassium A-a O2 Difference Sodium Chloride Glucose Lactate Vent Mode Mechanical Rate FiO2 Tidal Volume Crit Value Called To Crit Value Called By Crit Value Read Back Blood Gas Notified Time Potassium Carbon Dioxide Anion Gap BUN Creatinine Est GFR ( Amer) Est GFR (Non-Af Amer) POC Glucose (mg/dL) 176 H 99 Random Glucose Calcium Phosphorus Magnesium Total Bilirubin AST ALT Alkaline Phosphatase Troponin I Total Protein Albumin Globulin Albumin/Globulin Ratio Arterial Blood Potassium Blood Type A POSITIVE Antibody Screen Negative Crossmatch See Detail BBK History Checked Patient has bt 03/02/19 03/02/19 03/02/19 05:18 06:00 06:00 WBC 4.8 D RBC 3.36 L Hgb 10.8 L D Hct 32.0 L MCV 95.4 H D MCH 32.0 H MCHC 33.6 RDW 18.9 H Plt Count 63 L MPV 9.9 Neut % (Auto) 83.9 H Lymph % (Auto) 9.4 L Harrison % (Auto) 6.2 Eos % (Auto) 0.1 Baso % (Auto) 0.4 Neut # (Auto) 4.0 Lymph # (Auto) 0.5 L Harrison # (Auto) 0.3 Eos # (Auto) 0.0 Baso # (Auto) 0.0 Neutrophils % (Manual) 82 H Band Neutrophils % 2 Lymphocytes % (Manual) 9 L Reactive Lymphs % 1 H Monocytes % (Manual) 6 Nucleated RBC % 2 H Platelet Estimate Decreased L Large Platelets Present Hypochromasia (manual) Slight Anisocytosis (manual) Slight Tear Drop Cells Slight Ovalocytes Slight PT INR APTT pCO2 44 pO2 99 HCO3 21.7 ABG pH 7.31 L ABG Total CO2 23.6 ABG O2 Saturation 99.6 H ABG Base Excess -4.1 L Isacc Test Yes ABG Potassium 4.7 A-a O2 Difference 559.0 Sodium 115.0 L* 117 L* Chloride 87.0 L 85 L Glucose 80 Lactate 1.3 Vent Mode A/c Mechanical Rate 12 FiO2 100.0 Tidal Volume 400 Crit Value Called To Meri patel md Crit Value Called By 333 Crit Value Read Back Y Blood Gas Notified Time 527 Potassium 5.0 Carbon Dioxide 25 Anion Gap 12 BUN 19 Creatinine 1.3 Est GFR ( Amer) > 60 Est GFR (Non-Af Amer) 54 POC Glucose (mg/dL) Random Glucose 85 Calcium 7.9 L Phosphorus Magnesium Total Bilirubin 1.0 AST 1144 H ALT 929 H Alkaline Phosphatase 177 H Troponin I Total Protein 4.6 L Albumin 2.4 L Globulin 2.2 Albumin/Globulin Ratio 1.1 Arterial Blood Potassium 4.7 Blood Type Antibody Screen Crossmatch BBK History Checked 03/02/19 11:06 WBC RBC Hgb Hct MCV MCH MCHC RDW Plt Count MPV Neut % (Auto) Lymph % (Auto) Harrison % (Auto) Eos % (Auto) Baso % (Auto) Neut # (Auto) Lymph # (Auto) Harrison # (Auto) Eos # (Auto) Baso # (Auto) Neutrophils % (Manual) Band Neutrophils % Lymphocytes % (Manual) Reactive Lymphs % Monocytes % (Manual) Nucleated RBC % Platelet Estimate Large Platelets Hypochromasia (manual) Anisocytosis (manual) Tear Drop Cells Ovalocytes PT INR APTT pCO2 pO2 HCO3 ABG pH ABG Total CO2 ABG O2 Saturation ABG Base Excess Isacc Test ABG Potassium A-a O2 Difference Sodium Chloride Glucose Lactate Vent Mode Mechanical Rate FiO2 Tidal Volume Crit Value Called To Crit Value Called By Crit Value Read Back Blood Gas Notified Time Potassium Carbon Dioxide Anion Gap BUN Creatinine Est GFR ( Amer) Est GFR (Non-Af Amer) POC Glucose (mg/dL) 92 Random Glucose Calcium Phosphorus Magnesium Total Bilirubin AST ALT Alkaline Phosphatase Troponin I Total Protein Albumin Globulin Albumin/Globulin Ratio Arterial Blood Potassium Blood Type Antibody Screen Crossmatch BBK History Checked Microbiology 02/15/19 10:20 Other: Please Indicate Mycobacterial Culture - Preliminary 02/20/19 18:28 Sputum Gram Stain - Final 02/20/19 18:28 Sputum Sputum Culture - Final Stenotrophomonas Maltophilia 02/22/19 18:11 Naris MRSA Culture (Admit) - Final MRSA NOT DETECTED 02/15/19 10:20 Bronchial Washings Fungal Culture - Final Emile Glabrata 02/17/19 01:05 Sputum Gram Stain - Final 02/17/19 01:05 Sputum Sputum Culture - Final NORMAL ORAL KRISS 02/11/19 07:09 Naris MRSA Culture (Admit) - Final MRSA NOT DETECTED 02/09/19 19:00 Naris MRSA Culture (Admit) - Final MRSA NOT DETECTED 02/03/19 19:35 Blood-Venous Blood Culture - Final NO GROWTH AFTER 5 DAYS 02/03/19 19:35 Blood-Venous Gram Stain - Final TEST NOT PERFORMED 02/03/19 19:35 Blood-Venous Blood Culture - Final NO GROWTH AFTER 5 DAYS 02/03/19 19:35 Blood-Venous Gram Stain - Final TEST NOT PERFORMED 02/03/19 08:00 Sputum Gram Stain - Final 02/03/19 08:00 Sputum Sputum Culture - Final NORMAL ORAL KRISS 02/04/19 06:03 Naris MRSA Culture (Admit) - Final MRSA NOT DETECTED 02/03/19 20:50 Urine,Clean Catch Urine Culture - Final No Growth (<1,000 CFU/ML) Accession No. : [id number] Patient Name / ID : PURNIMA WHITLOCK / [id number] Exam Date : 03/02/2019 04:08:11 ( Addendum_Approved ) Study Comment : Sex / Age : M / 73Y Creator : kathryn dave Dictator : Ulises Garcia MD Handkerchief Cutter : Medical Physicist : Ulises Garcia MD Approver2 : Report Date : 03/02/2019 07:13:19 My Comment : ADDENDUM: On further review of the impression, the 2nd sentence should read as follows: Small bilateral pleural effusions are in question. [ Addendum Report Added by Ulises Garcia MD at 03/02/2019 09:05:13 ] Date of service: 03/02/2019 HISTORY: intubated COMPARISON: Portable chest 03/01/2019 3:33 p.m.. TECHNIQUE: 1 view obtained. FINDINGS: LUNGS: Stable positioning of endotracheal tube approximately 1 cm above the anay. Orogastric tube unchanged as well as left central venous line. Low pulmonary volume with image likely captured at late expiratory phase. Bilateral basilar atelectasis or infiltrates are identified with opacity appea ring increased bilaterally. PLEURA: Small bilateral pleural effusions are not excluded. No pneumothorax bilaterally. Patient's lower face obscures right apex. CARDIOVASCULAR: Calcific atherosclerotic changes are seen related to the thoracic aorta. Stable cardiac silhouette. Borderline pulmonary vascular congestion. OSSEOUS STRUCTURES: Thoracic spinal fusion hardware reiterated. VISUALIZED UPPER ABDOMEN: Diminishing gas in stomach and upper abdominal bowel. OTHER FINDINGS: None. IMPRESSION: Increased bilateral airspace disease however this could be a function of atelectasis given low inspiratory volumes. Small bowel pleural effusions are in question. No pneumothorax bilaterally. Borderline pulmonary vascular congestion. Stable supporting tubes and catheters. Assessment and Plan (1) COPD exacerbation Status: Acute (2) HCAP (healthcare-associated pneumonia) Status: Acute (3) Paroxysmal atrial fibrillation with rapid ventricular response Status: Acute (4) CHF (congestive heart failure) Status: Acute (5) COPD (chronic obstructive pulmonary disease) Status: Chronic (6) Acute respiratory failure with hypoxia and hypercarbia Status: Acute - Assessment and Plan (Free Text) Assessment: A/P- 73 year old male with h/o RA on streoids and Plaquenil, COPD, admitted with copd exacerbation, hypercapneic resp faillure and zoster on abdomen . zoster has resolved , had completed course of acyclovir as per Primary doc. s/p bronch a week ago which as per employee communications intern had shown thick purulent fluid and being treated for stenotrophomonas and was on 10 days of meropnem for HAP and 10 days of fluconazole for emile in BAL cx. s/p code yesterday and intubated and now in ICU again. Intubated afebrile no leukocytosis blood cx- neg x 3 sputum cx- stenotrophomonas 02/20/2019 02/03/2019-\BAl fungal and AFB smear- neg so far except yeast BAL cytology report- negative for malignancy, mixed bacteria and some fungal possible emile ( as per report). Plan- Continue with IV bactrim for stenotrophomonas in sputum cx. day #7 advise 5 more days of bactrim. will resume meropnem again since pt. could have aspirated and with his chronic pulmonary issues advise to be on broad spectrum coverage. check trach asp cx. check blood cx x 2. all labs and imaging and chart notes reviewed. Critical care time spent 40 minutes.
--- NOTE | 2019-03-02 11:45 | CP.CCUPN ---
<Farzaneh Knutson - Last Filed: 03/02/19 14:17> CCU Subjective - Physician Review Subjective (Free Text): MARKETING SECRETARY was called yesterday for bradycardia and was changed to code blue when pulses were no longer appreciated ROSC was achieved after CPR and rounds of epi and atropine patient was successfully intubated and transferred to the ICU for closer monitoring In the ICU, patient remained hypotensive, central and arterial lines were placed Patient given fluid challenged and subsequently started on pressors (manjeet and Phenylephrine) Currently remains intubated and on pressors. Spontaneous eye movements, no response to verbal or physical stimuli. GCS 6 PRVC FiO2 decreased to 85%, PEEP 3 Assessment/Plan: 1. Acute on chronic respiratory failure, Hypoxia/hypercapnia with respiratory acidosis -currently intubated and on pressors -decreased FIO2 from 100 to 85% 2. Acute cardic arrest, code blue -s/p CPR with ROSC achieved -likely 2/2 to respiratory failure -currently intubated and on 2 pressors to maintain BP -trop x 1 neg -EKG no acute ST or T wave changes, sinus kannan on EKG 3. Hyponatremia -severe hyponatremia, Na 117, sodium defect calculated -replace with hypertonic Na for 24 hrs -will get urine electrolytes, serum osmolarity -repeat Na in the AM 4. Acute liver injury -likely 2.2 to hypotension -c/t to monitor -consider GI if does not improve 5. HCAP -ID on board, currently on John and Bactrim -BAL sig for emile, s/p Diflucan 6. COPD, acute on chronic -pulmonary on board -intubated and vented 7. Paroxysmal A fib, MAT -likely 2.2 to chronic COPD -stable -on pressors -hold PO meds for now 8. Acute on chronic anemia -s/p transfusion of 2 units of PRBC -post-transfusion h/h stable -no acute source of bleeding 9. Pancytopenia, chronic -Hem/onc on board -stable 10. RA, chronic -patient intubated -will hold meds for now -morphine PRN for agitation, as requested by family 11. R abdominal hernia -Surgery consulted previous ICU stay during this admission -no acute surgical intervention 12. Diet -will start tube feeds for now 13. DVT prophylx -given pts current status, no acute bleeding and given hx of malignancy and immobility will start Lovenox SC -c/t to monitor platelets Full code per daughter, Son and CCU Objective - Vital Signs / Intake & Output Vital Signs (Last 4 hours): Vital Signs Temp Pulse Resp BP Pulse Ox 03/02/19 10:00 99.3 F 101 H 16 110/49 L 95 03/02/19 09:00 99.3 F 105 H 17 102/48 L 95 03/02/19 08:00 99.3 F 105 H 14 102/50 L 96 Intake and Output (Last 8hrs): Intake & Output 03/01/19 03/02/19 03/02/19 22:59 06:59 14:59 Intake Total 2954 3560 410.0 Output Total 100 100 Balance 2854 3460 410.0 Intake: IV 2254 1460 410.0 Intake, Piggyback 700 700 Blood Product 1300 Red Blood Cells Cpd As1 325 Lr Unit [id number] Red Blood Cells Cpd As1 325 Lr Unit [id number] Other 100 Red Blood Cells Cpd As1 50 Lr Unit [id number] Red Blood Cells Cpd As1 50 Lr Unit [id number] Output: Urine 100 100 Urethral (Milligan) 100 Urine, Voided 100 Other: # Bowel Movements 0 - Physical Exam Head: Positive for: Atraumatic, Normocephalic Pupils: Positive for: Sluggish (on the R with minimal response ), Pinpoint (on the L without reactivity ), Other (spontanous eye opening and closing ) Conjunctiva: Positive for: Normal. Negative for: Injected, Icteric Mouth: Positive for: Moist Mucous Membranes, Other (unable to appreciated gag reflex, anay reflex noted. ETT and OGT noted ) Nose (External): Positive for: Other (NC on ) Neck: Positive for: Trachea Midline. Negative for: Meningeal Signs, MIDLINE TENDERNESS, Paraspinal Tenderness, JVD, Lymphadenopathy, Bruit, Other Respiratory/Chest: Positive for: Decreased Breath Sounds, Rhonchi (b/l on the lower lobes ), Other (course breath sounds b/l ). Negative for: Respiratory Distress, Accessory Muscle Use, Wheezes, Rales, Tachypneic Cardiovascular: Positive for: Irregular Rhythm, Tachycardic, Other (subclavian line noted on L, intact ) Abdomen: Positive for: Normal Bowel Sounds, Hernias (R side, no skin changes). Negative for: Tenderness, Distention Genitourinary Male: Positive for: Other (milligan intact draning yellow urine. R arterial line noted, intact ) Upper Extremity: Positive for: Normal Inspection, Other (contracted fingers ) Lower Extremity: Positive for: Normal Inspection, Edema (mild edema in the lower ext b/l ) Neurological: Positive for: Other (intubated, no response to verbal or physical stimuli ) Psychiatric: Positive for: Alert - Medications Active Medications: Active Medications Generic Name Dose Route Start Last Admin Trade Name Freq PRN Reason Stop Dose Admin Acetaminophen/Butalbital/Caffeine 1 tab 02/20/19 08:32 02/27/19 18:51 Fioricet PO 1 tab Q6 PRN Administration Headache Acetazolamide 250 mg 02/18/19 09:30 03/02/19 10:34 Diamox 250 Mg Tab PO Not Given DAILY ARTEMIO Baclofen 10 mg 02/04/19 09:00 03/01/19 08:59 Lioresal PO 10 mg DAILY ARTEMIO Administration Guaifenesin/Dextromethorphan 10 ml 02/20/19 21:59 02/28/19 17:57 Robitussin Dm PO 10 ml Q6 PRN Administration Cough Hydroxychloroquine Sulfate 200 mg 02/04/19 09:00 03/01/19 08:54 Plaquenil PO 200 mg DAILY ARTEMIO Administration Protocol Meropenem 1 gm/ Sodium 100 mls @ 100 mls/hr 02/20/19 20:45 03/02/19 09:34 Chloride IVPB 100 mls/hr Q8 ARTEMIO Administration Protocol Trimethoprim/Sulfamethoxazole 500 mls @ 250 mls/hr 02/24/19 07:00 03/02/19 06:40 300 mg/ Dextrose IVPB 250 mls/hr Q8@0700,1500,2300 ARTEMIO Administration Protocol Sodium Chloride 1,000 mls @ 1,000 mls/hr 03/01/19 15:15 03/01/19 18:06 Sodium Chloride 0.9% IV 03/02/19 15:02 1,000 mls/hr .Q1H ARTEMIO Administration Phenylephrine HCl 30 mg/ 253 mls @ 10.12 mls/hr 03/01/19 17:15 03/02/19 10:32 Sodium Chloride IV 03/02/19 17:15 60 mcg/min .Q24H ARTEMIO 30.36 mls/hr Titration Protocol 20 MCG/MIN Sodium Chloride 500 mls @ 15 mls/hr 03/02/19 08:00 03/02/19 09:23 Hypertonic Saline 3% IV 03/03/19 08:01 15 mls/hr .Q24H ARTEMIO Administration Norepinephrine Bitartrate 16 266 mls @ 2.49 mls/hr 03/02/19 08:17 03/02/19 10:30 mg/ Sodium Chloride IV 03/03/19 08:16 25 mcg/min .Q24H ONE 24.94 mls/hr Titration Protocol 2.5 MCG/MIN Insulin Human Regular 0 units 02/04/19 07:30 03/02/19 06:41 Humulin R SC Not Given ACHS [facility] Protocol Ipratropium Fenwick 0.5 mg 02/11/19 22:00 03/02/19 07:25 Atrovent IH 0.5 mg RQID ARTEMIO Administration Lactulose 20 gm 02/22/19 21:00 03/02/19 09:23 Enulose PO Not Given Q4 [facility] Levalbuterol HCl 1.25 mg 02/11/19 20:52 02/28/19 18:11 Xopenex INH 1.25 mg RQ4 PRN Administration Shortness of Breath Lidocaine 2 ea 02/20/19 12:30 03/02/19 09:34 Lidoderm TD Not Given DAILY [facility] Meclizine HCl 12.5 mg 02/26/19 15:15 03/01/19 16:48 Antivert PO Not Given BID [facility] Morphine Sulfate 2 mg 03/01/19 17:10 Morphine IVP Q2 PRN Restlessness Pantoprazole Sodium 40 mg 03/02/19 09:00 03/02/19 09:36 Protonix Inj IVP 40 mg DAILY ARTEMIO Administration Tamsulosin HCl 0.4 mg 02/04/19 21:00 03/01/19 20:11 Flomax PO Not Given Q12 [facility] Temazepam 15 mg 02/25/19 20:49 02/28/19 08:59 Restoril PO 15 mg HS PRN Administration Insomnia Verapamil HCl 80 mg 02/19/19 10:45 03/02/19 03:00 Calan Tab PO Not Given Q8H ARTEMIO - Patient Studies Lab Studies: Microbiology Studies 02/15/19 10:20 Mycobacterial Culture - Preliminary Other: Please Indicate Lab Studies 03/02/19 03/02/19 03/02/19 Range/Units 11:06 06:00 06:00 WBC 4.8 D (4.8-10.8) K/uL RBC 3.36 L (4.40-5.90) Mil/uL Hgb 10.8 L D (12.0-18.0) g/dL Hct 32.0 L (35.0-51.0) % MCV 95.4 H D (80.0-94.0) fl MCH 32.0 H (27.0-31.0) pg MCHC 33.6 (33.0-37.0) g/dL RDW 18.9 H (11.5-14.5) % Plt Count 63 L (130-400) K/uL MPV 9.9 (7.2-11.7) fl Neut % (Auto) 83.9 H (50.0-75.0) % Lymph % (Auto) 9.4 L (20.0-40.0) % [place] % (Auto) 6.2 (0.0-10.0) % Eos % (Auto) 0.1 (0.0-4.0) % Baso % (Auto) 0.4 (0.0-2.0) % Neut # (Auto) 4.0 (1.8-7.0) K/uL Lymph # (Auto) 0.5 L (1.0-4.3) K/uL [place] # (Auto) 0.3 (0.0-0.8) K/uL Eos # (Auto) 0.0 (0.0-0.7) K/uL Baso # (Auto) 0.0 (0.0-0.2) K/uL Neutrophils % (Manual) 82 H (42-75) % Band Neutrophils % 2 (0-2) % Lymphocytes % (Manual) 9 L (20-50) % Reactive Lymphs % 1 H (0-0) % Monocytes % (Manual) 6 (0-10) % Nucleated RBC % 2 H (0-0) % Platelet Estimate Decreased L (NORMAL) Large Platelets Present Hypochromasia (manual) Slight Anisocytosis (manual) Slight Tear Drop Cells Slight Ovalocytes Slight PT (9.8-13.1) Seconds INR APTT (25.6-37.1) Seconds pCO2 (35-45) mm/Hg pO2 (80-100) mm/Hg HCO3 (21-28) mmol/L ABG pH (7.35-7.45) ABG Total CO2 (22-28) mmol/L ABG O2 Saturation (95-98) % ABG Base Excess (-2.0-3.0) mmol/L Isacc Test ABG Potassium (3.6-5.2) mmol/L A-a O2 Difference mm/Hg Sodium 117 L* (132-148) mmol/L Chloride 85 L (98-107) mmol/L Glucose (75-110) mg/dL Lactate (0.7-2.1) mmol/L Vent Mode Mechanical Rate FiO2 % Tidal Volume Crit Value Called To Crit Value Called By Crit Value Read Back Blood Gas Notified Time Potassium 5.0 (3.6-5.0) MMOL/L Carbon Dioxide 25 (22-30) mmol/L Anion Gap 12 (10-20) BUN 19 (9-20) mg/dl Creatinine 1.3 (0.8-1.5) mg/dl Est GFR ( Amer) > 60 Est GFR (Non-Af Amer) 54 POC Glucose (mg/dL) 92 (65-110) mg/dL Random Glucose 85 (75-110) mg/dL Calcium 7.9 L (8.4-10.2) mg/dL Phosphorus (2.5-4.5) mg/dl Magnesium (1.6-2.3) MG/DL Total Bilirubin 1.0 (0.2-1.3) mg/dl AST 1144 H (17-59) U/L ALT 929 H (21-72) U/L Alkaline Phosphatase 177 H (38-126) U/L Troponin I (0.00-0.120) ng/mL Total Protein 4.6 L (6.3-8.2) G/DL Albumin 2.4 L (3.5-5.0) g/dL Globulin 2.2 (2.2-3.9) gm/dL Albumin/Globulin Ratio 1.1 (1.0-2.1) Arterial Blood Potassium (3.6-5.2) mmol/L Blood Type Antibody Screen Crossmatch BBK History Checked 03/02/19 03/02/19 03/01/19 Range/Units 05:18 05:06 21:22 WBC (4.8-10.8) K/uL RBC (4.40-5.90) Mil/uL Hgb (12.0-18.0) g/dL Hct (35.0-51.0) % MCV (80.0-94.0) fl MCH (27.0-31.0) pg MCHC (33.0-37.0) g/dL RDW (11.5-14.5) % Plt Count (130-400) K/uL MPV (7.2-11.7) fl Neut % (Auto) (50.0-75.0) % Lymph % (Auto) (20.0-40.0) % [place] % (Auto) (0.0-10.0) % Eos % (Auto) (0.0-4.0) % Baso % (Auto) (0.0-2.0) % Neut # (Auto) (1.8-7.0) K/uL Lymph # (Auto) (1.0-4.3) K/uL [place] # (Auto) (0.0-0.8) K/uL Eos # (Auto) (0.0-0.7) K/uL Baso # (Auto) (0.0-0.2) K/uL Neutrophils % (Manual) (42-75) % Band Neutrophils % (0-2) % Lymphocytes % (Manual) (20-50) % Reactive Lymphs % (0-0) % Monocytes % (Manual) (0-10) % Nucleated RBC % (0-0) % Platelet Estimate (NORMAL) Large Platelets Hypochromasia (manual) Anisocytosis (manual) Tear Drop Cells Ovalocytes PT (9.8-13.1) Seconds INR APTT (25.6-37.1) Seconds pCO2 44 (35-45) mm/Hg pO2 99 (80-100) mm/Hg HCO3 21.7 (21-28) mmol/L ABG pH 7.31 L (7.35-7.45) ABG Total CO2 23.6 (22-28) mmol/L ABG O2 Saturation 99.6 H (95-98) % ABG Base Excess -4.1 L (-2.0-3.0) mmol/L Isacc Test Yes ABG Potassium 4.7 (3.6-5.2) mmol/L A-a O2 Difference 559.0 mm/Hg Sodium 115.0 L* (132-148) mmol/L Chloride 87.0 L (98-107) mmol/L Glucose 80 (75-110) mg/dL Lactate 1.3 (0.7-2.1) mmol/L Vent Mode A/c Mechanical Rate 12 FiO2 100.0 % Tidal Volume 400 Crit Value Called To Meri patel md Crit Value Called By 333 Crit Value Read Back Y Blood Gas Notified Time 527 Potassium (3.6-5.0) MMOL/L Carbon Dioxide (22-30) mmol/L Anion Gap (10-20) BUN (9-20) mg/dl Creatinine (0.8-1.5) mg/dl Est GFR ( Amer) Est GFR (Non-Af Amer) POC Glucose (mg/dL) 99 176 H (65-110) mg/dL Random Glucose (75-110) mg/dL Calcium (8.4-10.2) mg/dL Phosphorus (2.5-4.5) mg/dl Magnesium (1.6-2.3) MG/DL Total Bilirubin (0.2-1.3) mg/dl AST (17-59) U/L ALT (21-72) U/L Alkaline Phosphatase (38-126) U/L Troponin I (0.00-0.120) ng/mL Total Protein (6.3-8.2) G/DL Albumin (3.5-5.0) g/dL Globulin (2.2-3.9) gm/dL Albumin/Globulin Ratio (1.0-2.1) Arterial Blood Potassium 4.7 (3.6-5.2) mmol/L Blood Type Antibody Screen Crossmatch BBK History Checked 03/01/19 03/01/19 03/01/19 Range/Units 17:50 17:22 16:45 WBC (4.8-10.8) K/uL RBC (4.40-5.90) Mil/uL Hgb (12.0-18.0) g/dL Hct (35.0-51.0) % MCV (80.0-94.0) fl MCH (27.0-31.0) pg MCHC (33.0-37.0) g/dL RDW (11.5-14.5) % Plt Count (130-400) K/uL MPV (7.2-11.7) fl Neut % (Auto) (50.0-75.0) % Lymph % (Auto) (20.0-40.0) % [place] % (Auto) (0.0-10.0) % Eos % (Auto) (0.0-4.0) % Baso % (Auto) (0.0-2.0) % Neut # (Auto) (1.8-7.0) K/uL Lymph # (Auto) (1.0-4.3) K/uL [place] # (Auto) (0.0-0.8) K/uL Eos # (Auto) (0.0-0.7) K/uL Baso # (Auto) (0.0-0.2) K/uL Neutrophils % (Manual) (42-75) % Band Neutrophils % (0-2) % Lymphocytes % (Manual) (20-50) % Reactive Lymphs % (0-0) % Monocytes % (Manual) (0-10) % Nucleated RBC % (0-0) % Platelet Estimate (NORMAL) Large Platelets Hypochromasia (manual) Anisocytosis (manual) Tear Drop Cells Ovalocytes PT (9.8-13.1) Seconds INR APTT (25.6-37.1) Seconds pCO2 50 H (35-45) mm/Hg pO2 90 (80-100) mm/Hg HCO3 20.0 L (21-28) mmol/L ABG pH 7.24 L (7.35-7.45) ABG Total CO2 22.9 (22-28) mmol/L ABG O2 Saturation 100.1 H (95-98) % ABG Base Excess -6.3 L (-2.0-3.0) mmol/L Isacc Test Yes ABG Potassium 4.5 (3.6-5.2) mmol/L A-a O2 Difference 561.0 mm/Hg Sodium 119.0 L* (132-148) mmol/L Chloride 90.0 L (98-107) mmol/L Glucose 123 H (75-110) mg/dL Lactate 2.6 H (0.7-2.1) mmol/L Vent Mode A/c Mechanical Rate 12 FiO2 100.0 % Tidal Volume 400 Crit Value Called To Dara jeffrey rn Crit Value Called By 6075 Crit Value Read Back Y Blood Gas Notified Time 1727 Potassium (3.6-5.0) MMOL/L Carbon Dioxide (22-30) mmol/L Anion Gap (10-20) BUN (9-20) mg/dl Creatinine (0.8-1.5) mg/dl Est GFR ( Amer) Est GFR (Non-Af Amer) POC Glucose (mg/dL) 112 H (65-110) mg/dL Random Glucose (75-110) mg/dL Calcium (8.4-10.2) mg/dL Phosphorus (2.5-4.5) mg/dl Magnesium (1.6-2.3) MG/DL Total Bilirubin (0.2-1.3) mg/dl AST (17-59) U/L ALT (21-72) U/L Alkaline Phosphatase (38-126) U/L Troponin I (0.00-0.120) ng/mL Total Protein (6.3-8.2) G/DL Albumin (3.5-5.0) g/dL Globulin (2.2-3.9) gm/dL Albumin/Globulin Ratio (1.0-2.1) Arterial Blood Potassium 4.5 (3.6-5.2) mmol/L Blood Type A POSITIVE Antibody Screen Negative Crossmatch See Detail BBK History Checked Patient has bt 03/01/19 03/01/19 03/01/19 Range/Units 16:40 16:40 16:40 WBC 2.6 L (4.8-10.8) K/uL RBC 2.30 L (4.40-5.90) Mil/uL Hgb 7.5 L D (12.0-18.0) g/dL Hct 23.5 L (35.0-51.0) % MCV 102.1 H (80.0-94.0) fl MCH 32.5 H (27.0-31.0) pg MCHC 31.9 L (33.0-37.0) g/dL RDW 19.8 H (11.5-14.5) % Plt Count 67 L (130-400) K/uL MPV 11.0 (7.2-11.7) fl Neut % (Auto) 82.6 H (50.0-75.0) % Lymph % (Auto) 13.2 L (20.0-40.0) % [place] % (Auto) 3.9 (0.0-10.0) % Eos % (Auto) 0.1 (0.0-4.0) % Baso % (Auto) 0.2 (0.0-2.0) % Neut # (Auto) 2.2 (1.8-7.0) K/uL Lymph # (Auto) 0.3 L (1.0-4.3) K/uL [place] # (Auto) 0.1 (0.0-0.8) K/uL Eos # (Auto) 0.0 (0.0-0.7) K/uL Baso # (Auto) 0.0 (0.0-0.2) K/uL Neutrophils % (Manual) (42-75) % Band Neutrophils % (0-2) % Lymphocytes % (Manual) (20-50) % Reactive Lymphs % (0-0) % Monocytes % (Manual) (0-10) % Nucleated RBC % (0-0) % Platelet Estimate (NORMAL) Large Platelets Hypochromasia (manual) Anisocytosis (manual) Tear Drop Cells Ovalocytes PT 12.8 (9.8-13.1) Seconds INR 1.1 APTT 44.5 H (25.6-37.1) Seconds pCO2 (35-45) mm/Hg pO2 (80-100) mm/Hg HCO3 (21-28) mmol/L ABG pH (7.35-7.45) ABG Total CO2 (22-28) mmol/L ABG O2 Saturation (95-98) % ABG Base Excess (-2.0-3.0) mmol/L Isacc Test ABG Potassium (3.6-5.2) mmol/L A-a O2 Difference mm/Hg Sodium 122 L (132-148) mmol/L Chloride 87 L (98-107) mmol/L Glucose (75-110) mg/dL Lactate (0.7-2.1) mmol/L Vent Mode Mechanical Rate FiO2 % Tidal Volume Crit Value Called To Crit Value Called By Crit Value Read Back Blood Gas Notified Time Potassium 4.6 (3.6-5.0) MMOL/L Carbon Dioxide 22 (22-30) mmol/L Anion Gap 18 (10-20) BUN 15 (9-20) mg/dl Creatinine 1.0 (0.8-1.5) mg/dl Est GFR ( Amer) > 60 Est GFR (Non-Af Amer) > 60 POC Glucose (mg/dL) (65-110) mg/dL Random Glucose 98 (75-110) mg/dL Calcium 7.9 L (8.4-10.2) mg/dL Phosphorus 4.5 (2.5-4.5) mg/dl Magnesium 1.8 (1.6-2.3) MG/DL Total Bilirubin 1.3 (0.2-1.3) mg/dl AST 1369 H (17-59) U/L ALT 1105 H (21-72) U/L Alkaline Phosphatase 186 H D (38-126) U/L Troponin I 0.0680 (0.00-0.120) ng/mL Total Protein 4.5 L (6.3-8.2) G/DL Albumin 2.3 L (3.5-5.0) g/dL Globulin 2.2 (2.2-3.9) gm/dL Albumin/Globulin Ratio 1.1 (1.0-2.1) Arterial Blood Potassium (3.6-5.2) mmol/L Blood Type Antibody Screen Crossmatch BBK History Checked 03/01/19 03/01/19 03/01/19 Range/Units 15:27 13:49 11:19 WBC (4.8-10.8) K/uL RBC (4.40-5.90) Mil/uL Hgb (12.0-18.0) g/dL Hct (35.0-51.0) % MCV (80.0-94.0) fl MCH (27.0-31.0) pg MCHC (33.0-37.0) g/dL RDW (11.5-14.5) % Plt Count (130-400) K/uL MPV (7.2-11.7) fl Neut % (Auto) (50.0-75.0) % Lymph % (Auto) (20.0-40.0) % [place] % (Auto) (0.0-10.0) % Eos % (Auto) (0.0-4.0) % Baso % (Auto) (0.0-2.0) % Neut # (Auto) (1.8-7.0) K/uL Lymph # (Auto) (1.0-4.3) K/uL [place] # (Auto) (0.0-0.8) K/uL Eos # (Auto) (0.0-0.7) K/uL Baso # (Auto) (0.0-0.2) K/uL Neutrophils % (Manual) (42-75) % Band Neutrophils % (0-2) % Lymphocytes % (Manual) (20-50) % Reactive Lymphs % (0-0) % Monocytes % (Manual) (0-10) % Nucleated RBC % (0-0) % Platelet Estimate (NORMAL) Large Platelets Hypochromasia (manual) Anisocytosis (manual) Tear Drop Cells Ovalocytes PT (9.8-13.1) Seconds INR APTT (25.6-37.1) Seconds pCO2 83 H* (35-45) mm/Hg pO2 44 L* (80-100) mm/Hg HCO3 16.7 L (21-28) mmol/L ABG pH 7.05 L* (7.35-7.45) ABG Total CO2 25.5 (22-28) mmol/L ABG O2 Saturation 77.8 L (95-98) % ABG Base Excess -9.1 L (-2.0-3.0) mmol/L Isacc Test Yes ABG Potassium 5.0 (3.6-5.2) mmol/L A-a O2 Difference 565.0 mm/Hg Sodium 119.0 L* (132-148) mmol/L Chloride 86.0 L (98-107) mmol/L Glucose 93 (75-110) mg/dL Lactate 6.1 H* (0.7-2.1) mmol/L Vent Mode A/c Mechanical Rate 12 FiO2 100.0 % Tidal Volume 400 Crit Value Called To Dr martha phillips Crit Value Called By 6075 Crit Value Read Back Y Blood Gas Notified Time 1530 Potassium (3.6-5.0) MMOL/L Carbon Dioxide (22-30) mmol/L Anion Gap (10-20) BUN (9-20) mg/dl Creatinine (0.8-1.5) mg/dl Est GFR ( Amer) Est GFR (Non-Af Amer) POC Glucose (mg/dL) 149 H 149 H (65-110) mg/dL Random Glucose (75-110) mg/dL Calcium (8.4-10.2) mg/dL Phosphorus (2.5-4.5) mg/dl Magnesium (1.6-2.3) MG/DL Total Bilirubin (0.2-1.3) mg/dl AST (17-59) U/L ALT (21-72) U/L Alkaline Phosphatase (38-126) U/L Troponin I (0.00-0.120) ng/mL Total Protein (6.3-8.2) G/DL Albumin (3.5-5.0) g/dL Globulin (2.2-3.9) gm/dL Albumin/Globulin Ratio (1.0-2.1) Arterial Blood Potassium 5.0 (3.6-5.2) mmol/L Blood Type Antibody Screen Crossmatch BBK History Checked Laboratory Results - last 24 hr 03/01/19 03/01/19 03/01/19 11:19 13:49 15:27 WBC RBC Hgb Hct MCV MCH MCHC RDW Plt Count MPV Neut % (Auto) Lymph % (Auto) [place] % (Auto) Eos % (Auto) Baso % (Auto) Neut # (Auto) Lymph # (Auto) [place] # (Auto) Eos # (Auto) Baso # (Auto) Neutrophils % (Manual) Band Neutrophils % Lymphocytes % (Manual) Reactive Lymphs % Monocytes % (Manual) Nucleated RBC % Platelet Estimate Large Platelets Hypochromasia (manual) Anisocytosis (manual) Tear Drop Cells Ovalocytes PT INR APTT pCO2 83 H* pO2 44 L* HCO3 16.7 L ABG pH 7.05 L* ABG Total CO2 25.5 ABG O2 Saturation 77.8 L ABG Base Excess -9.1 L Isacc Test Yes ABG Potassium 5.0 A-a O2 Difference 565.0 Sodium 119.0 L* Chloride 86.0 L Glucose 93 Lactate 6.1 H* Vent Mode A/c Mechanical Rate 12 FiO2 100.0 Tidal Volume 400 Crit Value Called To Dr martha phillips Crit Value Called By 6075 Crit Value Read Back Y Blood Gas Notified Time 1530 Potassium Carbon Dioxide Anion Gap BUN Creatinine Est GFR ( Amer) Est GFR (Non-Af Amer) POC Glucose (mg/dL) 149 H 149 H Random Glucose Calcium Phosphorus Magnesium Total Bilirubin AST ALT Alkaline Phosphatase Troponin I Total Protein Albumin Globulin Albumin/Globulin Ratio Arterial Blood Potassium 5.0 Blood Type Antibody Screen Crossmatch BBK History Checked 03/01/19 03/01/19 03/01/19 16:40 16:40 16:40 WBC 2.6 L RBC 2.30 L Hgb 7.5 L D Hct 23.5 L MCV 102.1 H MCH 32.5 H MCHC 31.9 L RDW 19.8 H Plt Count 67 L MPV 11.0 Neut % (Auto) 82.6 H Lymph % (Auto) 13.2 L [place] % (Auto) 3.9 Eos % (Auto) 0.1 Baso % (Auto) 0.2 Neut # (Auto) 2.2 Lymph # (Auto) 0.3 L [place] # (Auto) 0.1 Eos # (Auto) 0.0 Baso # (Auto) 0.0 Neutrophils % (Manual) Band Neutrophils % Lymphocytes % (Manual) Reactive Lymphs % Monocytes % (Manual) Nucleated RBC % Platelet Estimate Large Platelets Hypochromasia (manual) Anisocytosis (manual) Tear Drop Cells Ovalocytes PT 12.8 INR 1.1 APTT 44.5 H pCO2 pO2 HCO3 ABG pH ABG Total CO2 ABG O2 Saturation ABG Base Excess Isacc Test ABG Potassium A-a O2 Difference Sodium 122 L Chloride 87 L Glucose Lactate Vent Mode Mechanical Rate FiO2 Tidal Volume Crit Value Called To Crit Value Called By Crit Value Read Back Blood Gas Notified Time Potassium 4.6 Carbon Dioxide 22 Anion Gap 18 BUN 15 Creatinine 1.0 Est GFR ( Amer) > 60 Est GFR (Non-Af Amer) > 60 POC Glucose (mg/dL) Random Glucose 98 Calcium 7.9 L Phosphorus 4.5 Magnesium 1.8 Total Bilirubin 1.3 AST 1369 H ALT 1105 H Alkaline Phosphatase 186 H D Troponin I 0.0680 Total Protein 4.5 L Albumin 2.3 L Globulin 2.2 Albumin/Globulin Ratio 1.1 Arterial Blood Potassium Blood Type Antibody Screen Crossmatch BBK History Checked 03/01/19 03/01/19 03/01/19 16:45 17:22 17:50 WBC RBC Hgb Hct MCV MCH MCHC RDW Plt Count MPV Neut % (Auto) Lymph % (Auto) [place] % (Auto) Eos % (Auto) Baso % (Auto) Neut # (Auto) Lymph # (Auto) [place] # (Auto) Eos # (Auto) Baso # (Auto) Neutrophils % (Manual) Band Neutrophils % Lymphocytes % (Manual) Reactive Lymphs % Monocytes % (Manual) Nucleated RBC % Platelet Estimate Large Platelets Hypochromasia (manual) Anisocytosis (manual) Tear Drop Cells Ovalocytes PT INR APTT pCO2 50 H pO2 90 HCO3 20.0 L ABG pH 7.24 L ABG Total CO2 22.9 ABG O2 Saturation 100.1 H ABG Base Excess -6.3 L Isacc Test Yes ABG Potassium 4.5 A-a O2 Difference 561.0 Sodium 119.0 L* Chloride 90.0 L Glucose 123 H Lactate 2.6 H Vent Mode A/c Mechanical Rate 12 FiO2 100.0 Tidal Volume 400 Crit Value Called To Dara jeffrey rn Crit Value Called By 6075 Crit Value Read Back Y Blood Gas Notified Time 1727 Potassium Carbon Dioxide Anion Gap BUN Creatinine Est GFR ( Amer) Est GFR (Non-Af Amer) POC Glucose (mg/dL) 112 H Random Glucose Calcium Phosphorus Magnesium Total Bilirubin AST ALT Alkaline Phosphatase Troponin I Total Protein Albumin Globulin Albumin/Globulin Ratio Arterial Blood Potassium 4.5 Blood Type A POSITIVE Antibody Screen Negative Crossmatch See Detail BBK History Checked Patient has bt 03/01/19 03/02/19 03/02/19 21:22 05:06 05:18 WBC RBC Hgb Hct MCV MCH MCHC RDW Plt Count MPV Neut % (Auto) Lymph % (Auto) [place] % (Auto) Eos % (Auto) Baso % (Auto) Neut # (Auto) Lymph # (Auto) [place] # (Auto) Eos # (Auto) Baso # (Auto) Neutrophils % (Manual) Band Neutrophils % Lymphocytes % (Manual) Reactive Lymphs % Monocytes % (Manual) Nucleated RBC % Platelet Estimate Large Platelets Hypochromasia (manual) Anisocytosis (manual) Tear Drop Cells Ovalocytes PT INR APTT pCO2 44 pO2 99 HCO3 21.7 ABG pH 7.31 L ABG Total CO2 23.6 ABG O2 Saturation 99.6 H ABG Base Excess -4.1 L Isacc Test Yes ABG Potassium 4.7 A-a O2 Difference 559.0 Sodium 115.0 L* Chloride 87.0 L Glucose 80 Lactate 1.3 Vent Mode A/c Mechanical Rate 12 FiO2 100.0 Tidal Volume 400 Crit Value Called To Meri patel md Crit Value Called By 333 Crit Value Read Back Y Blood Gas Notified Time 527 Potassium Carbon Dioxide Anion Gap BUN Creatinine Est GFR ( Amer) Est GFR (Non-Af Amer) POC Glucose (mg/dL) 176 H 99 Random Glucose Calcium Phosphorus Magnesium Total Bilirubin AST ALT Alkaline Phosphatase Troponin I Total Protein Albumin Globulin Albumin/Globulin Ratio Arterial Blood Potassium 4.7 Blood Type Antibody Screen Crossmatch BBK History Checked 03/02/19 03/02/19 03/02/19 06:00 06:00 11:06 WBC 4.8 D RBC 3.36 L Hgb 10.8 L D Hct 32.0 L MCV 95.4 H D MCH 32.0 H MCHC 33.6 RDW 18.9 H Plt Count 63 L MPV 9.9 Neut % (Auto) 83.9 H Lymph % (Auto) 9.4 L [place] % (Auto) 6.2 Eos % (Auto) 0.1 Baso % (Auto) 0.4 Neut # (Auto) 4.0 Lymph # (Auto) 0.5 L [place] # (Auto) 0.3 Eos # (Auto) 0.0 Baso # (Auto) 0.0 Neutrophils % (Manual) 82 H Band Neutrophils % 2 Lymphocytes % (Manual) 9 L Reactive Lymphs % 1 H Monocytes % (Manual) 6 Nucleated RBC % 2 H Platelet Estimate Decreased L Large Platelets Present Hypochromasia (manual) Slight Anisocytosis (manual) Slight Tear Drop Cells Slight Ovalocytes Slight PT INR APTT pCO2 pO2 HCO3 ABG pH ABG Total CO2 ABG O2 Saturation ABG Base Excess Isacc Test ABG Potassium A-a O2 Difference Sodium 117 L* Chloride 85 L Glucose Lactate Vent Mode Mechanical Rate FiO2 Tidal Volume Crit Value Called To Crit Value Called By Crit Value Read Back Blood Gas Notified Time Potassium 5.0 Carbon Dioxide 25 Anion Gap 12 BUN 19 Creatinine 1.3 Est GFR ( Amer) > 60 Est GFR (Non-Af Amer) 54 POC Glucose (mg/dL) 92 Random Glucose 85 Calcium 7.9 L Phosphorus Magnesium Total Bilirubin 1.0 AST 1144 H ALT 929 H Alkaline Phosphatase 177 H Troponin I Total Protein 4.6 L Albumin 2.4 L Globulin 2.2 Albumin/Globulin Ratio 1.1 Arterial Blood Potassium Blood Type Antibody Screen Crossmatch BBK History Checked Radiology Impressions: Radiology Impressions Chest X-Ray 03/01/19 15:27 IMPRESSION: Improved aeration status post intubation as discussed above. Tip of endotracheal tube terminates immediately proximal to the origin of the right mainstem bronchus but appears to terminate a 1 cm above the anay as well. Consider potential adjustment. Left PICC inserted in the interval terminating in SVC. Diminished right basilar infiltrate with limited infiltrate remaining there. Reticular changes are reiterated at the left base. No pneumothorax or pleural effusion bilaterally. Chest X-Ray 03/01/19 18:45 IMPRESSION: Borderline pulmonary vascular congestion. Right basilar infiltrate stable. Reticular changes at the left base are reiterated with question of developing left basilar airspace disease. Interval orogastric tube deployment terminating at the region of the gastric viscus. Stable tubes and catheters otherwise. Chest X-Ray 03/02/19 06:00 IMPRESSION: Increased bilateral airspace disease however this could be a function of atelectasis given low inspiratory volumes. Small bowel pleural effusions are in question. No pneumothorax bilaterally. Borderline pulmonary vascular congestion. Stable supporting tubes and catheters. Fingerstick Blood Sugar Results: 99 Critical Care Progress Note - Nutrition Nutrition: Nutrition Category Date Time Status NPO Diet [DIET] Diets 03/02/19 Breakfast Active <Martha Phillips - Last Filed: 03/02/19 16:03> Assessment/Plan - Assessment and Plan (Free Text) Plan: Attestation: Patient seen and examined at the bedside with Resident Dr. Loli Knutson; and I agree with her outline of plans and management documented above as discussed on AM rounds; reflecting my review of all applicable clinical data, and participation in the care of the patient throughout the day in ICU; today, March 02, 2019. Time spent with this patient did not overlap with any other provider's medical or critical care time. Additionally the code selected for the services rendered in this note includes the time spent: talking to the patients family, assoc iated physicians and reviewing hospital data/results not listed here which extended to a total of 35 minutes of critical care.
[2019-03-02] MEDS: Sodium Chloride 0.9% 1,000 ML IV SCH (14:26)
[2019-03-02] MEDS: Phenylephrine 30 MG in Sodium Chloride 0.9% 250 ML IV SCH ×2 (14:43→21:43)
[2019-03-02] MEDS ORDERED: Acetaminophen 160 mg/5 ml UD PO PRN (15:20)
[2019-03-02] MEDS: Acetaminophen 650mg/20.3ml solution UD PO PRN (16:28)
[2019-03-02 16:57] LABS: CREATININE, RANDOM URINE 30.1 mg/dL
[2019-03-02] MEDS ORDERED: Hydrocortisone- 100 MG in Sodium Chloride 0.9% 100 ML IV SCH (17:00)
--- NOTE | 2019-03-02 18:22 | PN ---
DATE: 03/02/2019 DAILY PROGRESS NOTE SUBJECTIVE: The patient is seen today in the intensive care unit. He is intubated and he has absent corneal reflexes and pupillary reflexes. He is on two vasopressors and hypotensive and not in any sedation, but nonresponsive. PHYSICAL EXAMINATION: VITAL SIGNS: Blood pressure 120/54, temperature 99.5, respiratory rate 16, and pulse 107. CHEST AND LUNGS: Good air entry both lung amos. CARDIOVASCULAR SYSTEM: PMI not localized. S1 and S2. No additional sounds. ABDOMEN: Decreased bowel sounds. No organomegaly. No masses. EXTREMITIES: No cyanosis, no clubbing, and no edema. CENTRAL NERVOUS SYSTEM: The patient is not sedated, but unresponsive to verbal or painful stimuli and there are absent reflexes. ASSESSMENT: 1. Status post cardiopulmonary arrest with cardiopulmonary resuscitation. 2. Pneumonia. 3. Hypercapnic respiratory failure. 4. Advanced rheumatoid arthritis. 5. 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 6. Coronary artery disease status post coronary artery bypass graft. PLAN: We will start the patient on hydrocortisone 100 mg every 8 hour, continue current antibiotics and ventilator management as per Pulmonary and antibiotics as per Infectious Disease. Continue followup with Cardiology. Guarded prognosis. Michaela Wood MD
--- NOTE | 2019-03-02 21:48 | PN ---
DATE: 03/02/2019 SUBJECTIVE: The patient developed respiratory failure yesterday, was resuscitated, intubated and transferred to the ICU. The family has signed [id number] order. He is currently hemodynamically stable and is in sinus tachycardia. PHYSICAL EXAMINATION: VITAL SIGNS: Blood pressure 116/51, heart rate 120, temperature 101.5, respirations 12. HEENT: Pale conjunctivae. CHEST: Diffuse bilateral rhonchi. HEART: S1 and S2, regular. EXTREMITIES: No edema. LABORATORY DATA: Hemoglobin and hematocrit 10.8 and 32, white count 4.8, platelet count 63,000. SMA-7, sodium 117, potassium 5, chloride 85, CO2 of 25, blood glucose 85, BUN 19, and creatinine 1.3. AST and ALT are 1144 and 929 respectively, alkaline phosphatase is 177. Chest x-ray revealed worsening of the pulmonary congestion with worsening of both bilateral lower lobe and right middle lobe infiltrate as well as bilateral pleural effusion. ASSESSMENT: 1. Septic shock and lactic acidosis. 2. Respiratory failure. 3. Worsening pneumonia and pleural effusion. 4. Paroxysmal atrial fibrillation and atrial flutter. 5. Runs of multifocal atrial tachycardia. 6. Hyponatremia. 7. Elevated liver enzymes. 8. Coronary artery disease with history of coronary artery bypass surgery. RECOMMENDATIONS: Continue current subcutaneous Lovenox 40 mg once a day, hypertonic saline 3% at 15 mL per hour, IV meropenem at 1 g daily, Levophed and phenylephrine infusion. Continue IV Bactrim at 300 mg every 8 hours. Geo Whitmore MD
[2019-03-03] MEDS: Meropenem 1 GM in Sodium Chloride 0.9% 100 ML IVPB SCH ×3 (00:58→16:11)
[2019-03-03 04:29] LABS: ABG ALLEN TEST YES; ARTERIAL BLOOD GAS HCO3 16.6 mmol/L (21-28); ARTERIAL BLOOD GAS HEMOGLOBIN 12.9 g/dL (11.7-17.4); ARTERIAL BLOOD GAS O2 CAPACITY 17.5 mL/dL (16-24); ARTERIAL BLOOD GAS O2 CONTENT 17.1 ML/dL (15-23); ARTERIAL BLOOD GAS O2 SAT 97.6 % (95-98); ARTERIAL BLOOD GAS PCO2 61 mm/Hg (35-45); ARTERIAL BLOOD GAS PH 7.11 (7.35-7.45); ARTERIAL BLOOD GAS PO2 87 mm/Hg (80-100); ARTERIAL BLOOD GAS TCO2 21.3 mmol/L (22-28)
[2019-03-03] MEDS ORDERED: Sodium Bicarbonate 7.5% (0.9 MEQ/ML) 50ML INJ IV ONE (04:33)
[2019-03-03] MEDS: Phenylephrine 30 MG in Sodium Chloride 0.9% 250 ML IV SCH ×3 (04:50→21:07)
[2019-03-03 05:26] LABS: BASO % 0.2 % (0.0-2.0); EOS % 0.1 % (0.0-4.0); HEMOGLOBIN 11.5 g/dL (12.0-18.0); LYMPH # 0.5 K/uL (1.0-4.3); LYMPH % 8.9 % (20.0-40.0); MEAN CELL VOLUME 97.1 fl (80.0-94.0); MEAN CORPUSCULAR HEMOGLOBIN 32.1 pg (27.0-31.0); MEAN PLATELET VOLUME 11.1 fl (7.2-11.7); MONO # 0.5 K/uL (0.0-0.8); NEUT # 4.1 K/uL (1.8-7.0); NEUT % 80.8 % (50.0-75.0); RBC 3.58 Mil/uL (4.40-5.90); RED CELL DISTRIBUTION WIDTH 19.5 % (11.5-14.5); WHITE BLOOD COUNT 5.1 K/uL (4.8-10.8)
[2019-03-03 05:49] LABS: ALBUMIN 2.4 g/dL (3.5-5.0); CALCIUM 8.1 mg/dL (8.4-10.2)
[2019-03-03] MEDS ORDERED: Sod Polystyrene Sulf 15 gm/60 ml Susp PO ONE (06:04)
[2019-03-03] MEDS: Sulfamethoxazole/Trimethoprim 300 MG in Dextrose 5% In Water 500 ML IVPB SCH ×3 (07:15→23:50)
[2019-03-03] MEDS: Insulin Regular 100 units/ml SC SCH ×4 (07:33→21:17)
[2019-03-03] MEDS: Ipratropium 0.02% Inhal Soln (0.5 mg/2.5 ml) UD IH SCH ×3 (08:12→19:21)
[2019-03-03 08:41] LABS: ABG ALLEN TEST YES; ARTERIAL BLOOD GAS HCO3 18.3 mmol/L (21-28); ARTERIAL BLOOD GAS O2 SAT 97.9 % (95-98); ARTERIAL BLOOD GAS PCO2 50 mm/Hg (35-45); ARTERIAL BLOOD GAS PO2 84 mm/Hg (80-100)
[2019-03-03] MEDS: Lidocaine 5% Patch TD SCH (09:02)
[2019-03-03] MEDS: Enoxaparin 40 mg Syringe SC SCH (09:03)
--- NOTE | 2019-03-03 10:53 | CP.PCM.PN ---
Subjective - Date & Time of Evaluation Date of Evaluation: 03/03/19 Time of Evaluation: 10:53 - Subjective Subjective: Seen in ICU on rounds. Interim events reviewed. Case discussed with nurse at bedside. Patient's family present during visit. Chest x-rays reviewed. Presently orally intubated and mechanically ventilated. Currently on vasopressor support. Unresponsive to verbal or tactile stimuli. Neck is supple and trachea midline. No dullness on percussion of the anterior chest wall. No subcutaneous emphysema palpated. Breath sounds are equally heard in both lungs anteriorly. Scattered rhonchi bilaterally. Posteriorly breath sounds are more diminished. Medium rales are present in the RLL posteriorly. Bronchial breath sounds are present in the RLL. PAP 18cm, Plateau 16cm, MAP 7cm, EtCO2 33mm. Tmax 101.5 degrees. FiO2-.85/ spO2-96%. Post code, unresponsive/on pressors. Spoke with family members regarding prognosis. No weaning contemplated at this point. Agree with current medical management. Prognosis is very poor. Objective - Vital Signs/Intake and Output Vital Signs (last 24 hours): Temp Pulse Resp BP Pulse Ox 98.8 F 123 H 22 115/50 L 96 03/03/19 10:00 03/03/19 10:00 03/03/19 10:00 03/03/19 10:00 03/03/19 10:00 Intake and Output: 03/02/19 03/03/19 23:59 11:59 Intake Total 2702 1615 Output Total 107 8 Balance 2595 1607 - Medications Medications: Current Medications Acetaminophen (Tylenol 650mg/20.3ml Solution Ud) 640 mg PO Q6 PRN PRN Reason: FEVER>100.4F Last Admin: 03/02/19 16:28 Dose: 640 mg Baclofen (Lioresal) 10 mg PO DAILY [facility] Last Admin: 03/01/19 08:59 Dose: 10 mg Enoxaparin Sodium (Lovenox) 40 mg SC DAILY [facility]; Protocol Last Admin: 03/03/19 09:03 Dose: 40 mg Guaifenesin/Dextromethorphan (Robitussin Dm) 10 ml PO Q6 PRN PRN Reason: Cough Last Admin: 02/28/19 17:57 Dose: 10 ml Hydrocortisone Sodium Succinate (Solu-Cortef) 100 mg IVP Q8 [facility] Last Admin: 03/03/19 09:04 Dose: 100 mg Hydroxychloroquine Sulfate (Plaquenil) 200 mg PO DAILY [facility]; Protocol Last Admin: 03/01/19 08:54 Dose: 200 mg Meropenem 1 gm/ Sodium (Chloride) 100 mls @ 100 mls/hr IVPB Q8 [facility]; Protocol Last Admin: 03/03/19 09:03 Dose: 100 mls/hr Trimethoprim/Sulfamethoxazole (300 mg/ Dextrose) 500 mls @ 250 mls/hr IVPB Q8@0700,1500,2300 [facility]; Protocol Last Admin: 03/03/19 07:15 Dose: 250 mls/hr Phenylephrine HCl 30 mg/ (Sodium Chloride) 253 mls @ 50.6 mls/hr IV .Q5H [facility]; Protocol Stop: 03/04/19 20:57 Last Titration: 03/03/19 05:52 Dose: 70 mcg/min, 35.42 mls/hr Insulin Human Regular (Humulin R) 0 units SC ACHS [facility]; Protocol Last Admin: 03/03/19 07:33 Dose: Not Given Ipratropium [place] (Atrovent) 0.5 mg IH RQ6 [facility] Lactulose (Enulose) 20 gm PO Q4 [facility] Last Admin: 03/03/19 09:02 Dose: Not Given Levalbuterol HCl (Xopenex) 1.25 mg INH RQ4 PRN PRN Reason: Shortness of Breath Last Admin: 02/28/19 18:11 Dose: 1.25 mg Lidocaine (Lidoderm) 2 ea TD DAILY [facility] Last Admin: 03/03/19 09:02 Dose: Not Given Meclizine HCl (Antivert) 12.5 mg PO BID [facility] Last Admin: 03/01/19 16:48 Dose: Not Given Morphine Sulfate (Morphine) 2 mg IVP Q2 PRN PRN Reason: Restlessness Pantoprazole Sodium (Protonix Inj) 40 mg IVP DAILY [facility] Last Admin: 03/03/19 09:04 Dose: 40 mg Tamsulosin HCl (Flomax) 0.4 mg PO Q12 [facility] Last Admin: 03/01/19 20:11 Dose: Not Given Temazepam (Restoril) 15 mg PO HS PRN PRN Reason: Insomnia Last Admin: 02/28/19 08:59 Dose: 15 mg Verapamil HCl (Calan Tab) 80 mg PO Q8H [facility] Last Admin: 03/02/19 03:00 Dose: Not Given - Labs Labs: 03/03/19 04:41 03/03/19 04:41 PT 12.8 Seconds (9.8-13.1) 03/01/19 16:40 INR 1.1 03/01/19 16:40 APTT 44.5 Seconds (25.6-37.1) H 03/01/19 16:40 Assessment and Plan (1) Pneumonia Status: Acute (2) Acute on chronic respiratory failure with hypoxemia Status: Chronic (3) Hypercapnic respiratory failure Status: Chronic (4) Mucus plugging of bronchi Assessment & Plan: Recurrence? Status: Suspected
--- NOTE | 2019-03-03 13:47 | PN ---
DATE: 03/03/2019 LOCATION: The patient in ICU bed 424. TIME SPENT: 35 minutes. The patient is seen, evaluated at the bedside. Past medical, surgical, family, social history reviewed. SUBJECTIVE: A 73-year-old male with history significant for chronic obstructive pulmonary disease, pneumonia, rheumatoid arthritis, paroxysmal atrial fibrillation with multiple admissions in the past for exacerbation of chronic obstructive pulmonary disease, admitted with increasing shortness of breath and hypotension, noted to have respiratory failure, bilateral lower lobe pneumonia, varicella zoster lesion on the abdomen, status post completed a course of acyclovir, status post bronchoscopy with bronchioalveolar, noted to have purulent bronchial secretions, status post [employer]PER[employer] CONVERSION, intubated, placed on mechanical ventilation, readmitted to ICU, currently DNR as per family request. On AC/PRBC rate 20, tidal volume of 400, FIO2 of 85%, saturation 96%, minute ventilation 7.8 liters, PEEP 3, observed rate 20, on pressors. PHYSICAL EXAMINATION: VITAL SIGNS: Temperature 99, heart rate 123 to 124, blood pressure 109/46. Intake of 4654, output 150, positive balance of 4539. Urine output 100 mL. Weight 162 pounds. HEAD, EYES, EARS, NOSE AND THROAT: Pupils are 2 to 3 mm, reactive. No nystagmus. Conjunctival reflex present. Corneal reflex present. Oral endotracheal tube in place. No secretions noted. CHEST: Bilateral breath sounds, diminished in intensity, more on right than the left. HEART: S1, S2 distant, rhythm irregular. ABDOMEN: Distended, soft. Finn in place. Femoral arterial line in place. EXTREMITIES: With edema. NEUROLOGIC: Minimal to no response to verbal commands. Grimaces to noxious stimuli. CURRENT MEDICATIONS: Include Tylenol 640 p.o. every 6 hours p.r.n., baclofen 10 mg p.o. daily, Lovenox 40 subcu daily, guaifenesin 10 mL p.o. every 6 hours p.r.n., hydrocortisone, Solu-Cortef 100 mg IV every 8 hours., Plaquenil 200 mg p.o. daily, Accu-Chek with regular insulin coverage, ipratropium bromide 0.5 mg inhalation every 6 hours, lactulose 20 g p.o. every 4 hours, Xopenex 1.25 mg via nebulizer every 4 hours p.r.n., Lidoderm two each daily, Antivert 12.5 mg twice daily, meropenem 1 g IV every 8 hours, morphine 2 mg IV every 2 hours p.r.n., Protonix 40 IV daily, phenylephrine drip at 0.4 mg every 12 hours, Restoril 15 mg p.o. h.s., Bactrim 300 mg every 8 hours, verapamil 80 mg p.o. every 8 hours. IMPRESSION: Neurologic: Septic toxic metabolic encephalopathy, on ventilator, minimal to no response. Pulmonary: Hypercapnic hypoxic respiratory failure, intubated on mechanical ventilation, status post bronchoscopy with bronchoalveolar lavage consistent with mucopurulent secretions obstructing the airway. Continue DuoNeb, Mucomyst. Infectious Disease: Hypercapnic hypoxic respiratory failure, recurrent possible tracheobronchitis/pneumonia, healthcare-related immunocompromise, high risk for infection, on antibiotic as per ID consult. Continue same. Cardiac: Paroxysmal atrial fibrillation with rapid ventricular response, on verapamil, tachycardia due to hypoxemia and due to the nebulizer treatment. Renal: Function stable. Hematology: Pancytopenia secondary to acute infection and/or due to polypharmacy including hydroxychloroquine. Endocrinology: Hypertriglyceridemia secondary to steroid. Continue Accu-Chek with regular insulin coverage. Keep head of bed [address] in [address] for adequate intake and output. Continue DVT prophylaxis. Prognosis remains guarded. Currently DNR. Freeman Roberts MD
--- NOTE | 2019-03-03 14:36 | PN ---
DATE: 03/03/2019 SUBJECTIVE: The patient is seen today 03/03/2019. He is still intubated and no corneal reflexes or gag reflexes. PHYSICAL EXAMINATION: VITAL SIGNS: Blood pressure is 109/46, temperature 99, respiratory rate 20, and pulse 124. CHEST AND LUNGS: Bilateral symmetrical expansion. Good air exchange bilaterally. Few basilar rales. CARDIOVASCULAR: PMI not localized. S1, S2. No additional sounds. ABDOMEN: Decreased bowel sounds. No tenderness. No organomegaly. No masses. EXTREMITIES: No cyanosis, no clubbing, no edema. CENTRAL NERVOUS SYSTEM: The patient is unconscious, not responsive to verbal or painful stimuli. ASSESSMENT: Pneumonia, hypercapnic respiratory failure, hypertension, coronary artery disease, advanced rheumatoid arthritis. PLAN: Discussed with the patient's family who requested to [id number]. They also will discuss the further comforting-only management with the rest of the family members. Guarded prognosis. Michaela Wood MD
[2019-03-03] MEDS: Acetaminophen 650mg/20.3ml solution UD PO PRN (15:18)
--- NOTE | 2019-03-03 19:27 | PN ---
DATE: 03/03/2019 SUBJECTIVE: The patient is still on Levophed at 2 mcg per minute as well as phenylephrine infusion at 17 mcg per minute. No reports of atrial fibrillation. The patient is in sinus tachycardia with frequent APCs, . PHYSICAL EXAMINATION: VITAL SIGNS: Blood pressure 109/47, heart rate 127, temperature 99.9, respirations 21. HEENT: Facial edema. CHEST: Bilateral rhonchi. HEART: S1 and S2, regular. EXTREMITIES: Trace leg edema. LABORATORY DATA: Today's hemoglobin and hematocrit are 11.5 and 34.8. White count 5.1, platelet count 72,000. Today's SMA-7: Sodium 120, potassium 5.6, chloride 88, CO2 of 19, glucose 104, BUN 26, creatinine 2.1. AST and ALT are 543 and 725 respectively. ASSESSMENT: 1. Sepsis and septic shock. 2. Bilateral pneumonia, pleural effusion, and respiratory failure. 3. Hyponatremia and hyperkalemia. 4. Acute renal insufficiency. 5. Rheumatoid arthritis. 6. Coronary artery disease with history of coronary artery bypass surgery. RECOMMENDATIONS: Continue current supportive measures including ventilatory support and vasopressors. Continue subcutaneous Lovenox at 40 mg daily, IV meropenem at 1 g every 8 hours, IV Bactrim at 300 mg every 8 hours. Verapamil is currently on hold because of hypertension. The overall prognosis is grave and the family has signed Do Not Resuscitate, however, they are waiting [place] prior to discontinuation of life support. Geo Whitmore MD
--- NOTE | 2019-03-03 23:30 | CP.PCM.PN ---
Subjective - Date & Time of Evaluation Date of Evaluation: 03/01/19 Time of Evaluation: 20:00 - Subjective Subjective: Events noted s/p code blue, vented Objective - Vital Signs/Intake and Output Vital Signs (last 24 hours): Temp Pulse Resp BP Pulse Ox 100.0 F H 126 H 21 103/52 L 95 03/03/19 21:00 03/03/19 21:00 03/03/19 21:00 03/03/19 21:00 03/03/19 21:00 Intake and Output: 03/03/19 03/04/19 18:59 06:59 Intake Total 2593 373 Output Total 20 20 Balance 2573 353 - Medications Medications: Current Medications Acetaminophen (Tylenol 650mg/20.3ml Solution Ud) 640 mg PO Q6 PRN PRN Reason: FEVER>100.4F Last Admin: 03/03/19 15:18 Dose: 640 mg Baclofen (Lioresal) 10 mg PO DAILY [facility] Last Admin: 03/01/19 08:59 Dose: 10 mg Enoxaparin Sodium (Lovenox) 40 mg SC DAILY [facility]; Protocol Last Admin: 03/03/19 09:03 Dose: 40 mg Guaifenesin/Dextromethorphan (Robitussin Dm) 10 ml PO Q6 PRN PRN Reason: Cough Last Admin: 02/28/19 17:57 Dose: 10 ml Hydrocortisone Sodium Succinate (Solu-Cortef) 100 mg IVP Q8 [facility] Last Admin: 03/03/19 16:11 Dose: 100 mg Hydroxychloroquine Sulfate (Plaquenil) 200 mg PO DAILY [facility]; Protocol Last Admin: 03/01/19 08:54 Dose: 200 mg Trimethoprim/Sulfamethoxazole (300 mg/ Dextrose) 500 mls @ 250 mls/hr IVPB Q8@0700,1500,2300 [facility]; Protocol Last Admin: 03/03/19 15:19 Dose: 250 mls/hr Phenylephrine HCl 30 mg/ (Sodium Chloride) 253 mls @ 50.6 mls/hr IV .Q5H [facility]; Protocol Stop: 03/04/19 20:57 Last Admin: 03/03/19 21:07 Dose: 70 mcg/min, 35.42 mls/hr Insulin Human Regular (Humulin R) 0 units SC ACHS [facility]; Protocol Last Admin: 03/03/19 21:17 Dose: Not Given Ipratropium [place] (Atrovent) 0.5 mg IH RQ6 [facility] Last Admin: 03/03/19 19:21 Dose: 0.5 mg Lactulose (Enulose) 20 gm PO Q4 [facility] Last Admin: 03/03/19 21:01 Dose: 20 gm Levalbuterol HCl (Xopenex) 1.25 mg INH RQ4 PRN PRN Reason: Shortness of Breath Last Admin: 02/28/19 18:11 Dose: 1.25 mg Lidocaine (Lidoderm) 2 ea TD DAILY [facility] Last Admin: 03/03/19 09:02 Dose: Not Given Meclizine HCl (Antivert) 12.5 mg PO BID [facility] Last Admin: 03/01/19 16:48 Dose: Not Given Morphine Sulfate (Morphine) 2 mg IVP Q2 PRN PRN Reason: Restlessness Pantoprazole Sodium (Protonix Inj) 40 mg IVP DAILY [facility] Last Admin: 03/03/19 09:04 Dose: 40 mg Tamsulosin HCl (Flomax) 0.4 mg PO Q12 [facility] Last Admin: 03/01/19 20:11 Dose: Not Given Temazepam (Restoril) 15 mg PO HS PRN PRN Reason: Insomnia Last Admin: 02/28/19 08:59 Dose: 15 mg Verapamil HCl (Calan Tab) 80 mg PO Q8H [facility] Last Admin: 03/02/19 03:00 Dose: Not Given - Labs Labs: 03/03/19 04:41 03/03/19 04:41 PT 12.8 Seconds (9.8-13.1) 03/01/19 16:40 INR 1.1 03/01/19 16:40 APTT 44.5 Seconds (25.6-37.1) H 03/01/19 16:40 - Head Exam Head Exam: ATRAUMATIC - Eye Exam Eye Exam: Normal appearance - ENT Exam ENT Exam: Mucous Membranes Dry - Respiratory Exam Respiratory Exam: Decreased Breath Sounds - Cardiovascular Exam Cardiovascular Exam: +S1, +S2 - GI/Abdominal Exam GI & Abdominal Exam: Normal Bowel Sounds Assessment and Plan (1) Pancytopenia Assessment & Plan: prior improvement in cytopenias when holding hydroxychloroquine; held WBC and H/H improved, plt improved - okay to resume heparin if plt > 50,000 normal iron/b12/folate stores transfusion support PRN Status: Acute (2) Pancreatic mass Assessment & Plan: prior elevation in chromogranin A level; repeated ?neuroendocrine tumor not a good surgical candidate, will cont. to monitor Status: Acute
--- NOTE | 2019-03-03 23:33 | CP.PCM.PN ---
Subjective - Date & Time of Evaluation Date of Evaluation: 03/02/19 Time of Evaluation: 12:00 - Subjective Subjective: Vented Objective - Vital Signs/Intake and Output Vital Signs (last 24 hours): Temp Pulse Resp BP Pulse Ox 100.0 F H 126 H 21 103/52 L 95 03/03/19 21:00 03/03/19 21:00 03/03/19 21:00 03/03/19 21:00 03/03/19 21:00 Intake and Output: 03/03/19 03/04/19 18:59 06:59 Intake Total 2593 373 Output Total 20 20 Balance 2573 353 - Medications Medications: Current Medications Acetaminophen (Tylenol 650mg/20.3ml Solution Ud) 640 mg PO Q6 PRN PRN Reason: FEVER>100.4F Last Admin: 03/03/19 15:18 Dose: 640 mg Baclofen (Lioresal) 10 mg PO DAILY [facility] Last Admin: 03/01/19 08:59 Dose: 10 mg Enoxaparin Sodium (Lovenox) 40 mg SC DAILY [facility]; Protocol Last Admin: 03/03/19 09:03 Dose: 40 mg Guaifenesin/Dextromethorphan (Robitussin Dm) 10 ml PO Q6 PRN PRN Reason: Cough Last Admin: 02/28/19 17:57 Dose: 10 ml Hydrocortisone Sodium Succinate (Solu-Cortef) 100 mg IVP Q8 [facility] Last Admin: 03/03/19 16:11 Dose: 100 mg Hydroxychloroquine Sulfate (Plaquenil) 200 mg PO DAILY [facility]; Protocol Last Admin: 03/01/19 08:54 Dose: 200 mg Trimethoprim/Sulfamethoxazole (300 mg/ Dextrose) 500 mls @ 250 mls/hr IVPB Q8@0700,1500,2300 [facility]; Protocol Last Admin: 03/03/19 15:19 Dose: 250 mls/hr Phenylephrine HCl 30 mg/ (Sodium Chloride) 253 mls @ 50.6 mls/hr IV .Q5H [facility]; Protocol Stop: 03/04/19 20:57 Last Admin: 03/03/19 21:07 Dose: 70 mcg/min, 35.42 mls/hr Insulin Human Regular (Humulin R) 0 units SC ACHS [facility]; Protocol Last Admin: 03/03/19 21:17 Dose: Not Given Ipratropium [employer] (Atrovent) 0.5 mg IH RQ6 [facility] Last Admin: 03/03/19 19:21 Dose: 0.5 mg Lactulose (Enulose) 20 gm PO Q4 [facility] Last Admin: 03/03/19 21:01 Dose: 20 gm Levalbuterol HCl (Xopenex) 1.25 mg INH RQ4 PRN PRN Reason: Shortness of Breath Last Admin: 02/28/19 18:11 Dose: 1.25 mg Lidocaine (Lidoderm) 2 ea TD DAILY [facility] Last Admin: 03/03/19 09:02 Dose: Not Given Meclizine HCl (Antivert) 12.5 mg PO BID [facility] Last Admin: 03/01/19 16:48 Dose: Not Given Morphine Sulfate (Morphine) 2 mg IVP Q2 PRN PRN Reason: Restlessness Pantoprazole Sodium (Protonix Inj) 40 mg IVP DAILY [facility] Last Admin: 03/03/19 09:04 Dose: 40 mg Tamsulosin HCl (Flomax) 0.4 mg PO Q12 [facility] Last Admin: 03/01/19 20:11 Dose: Not Given Temazepam (Restoril) 15 mg PO HS PRN PRN Reason: Insomnia Last Admin: 02/28/19 08:59 Dose: 15 mg Verapamil HCl (Calan Tab) 80 mg PO Q8H [facility] Last Admin: 03/02/19 03:00 Dose: Not Given - Labs Labs: 03/03/19 04:41 03/03/19 04:41 PT 12.8 Seconds (9.8-13.1) 03/01/19 16:40 INR 1.1 03/01/19 16:40 APTT 44.5 Seconds (25.6-37.1) H 03/01/19 16:40 - Head Exam Head Exam: ATRAUMATIC - Eye Exam Eye Exam: Normal appearance - ENT Exam ENT Exam: Mucous Membranes Dry - Respiratory Exam Respiratory Exam: Decreased Breath Sounds - Cardiovascular Exam Cardiovascular Exam: +S1, +S2 - GI/Abdominal Exam GI & Abdominal Exam: Normal Bowel Sounds Assessment and Plan (1) Pancytopenia Assessment & Plan: prior improvement in cytopenias when holding hydroxychloroquine; held and now resumed WBC and H/H improved, plt improved normal iron/b12/folate stores transfusion support PRN Status: Acute (2) Pancreatic mass Assessment & Plan: prior elevation in chromogranin A level; repeated ?neuroendocrine tumor not a good surgical candidate, will cont. to monitor Status: Acute
--- NOTE | 2019-03-03 23:34 | CP.PCM.PN ---
Subjective - Date & Time of Evaluation Date of Evaluation: 03/03/19 Time of Evaluation: 17:00 - Subjective Subjective: Vented. Objective - Vital Signs/Intake and Output Vital Signs (last 24 hours): Temp Pulse Resp BP Pulse Ox 100.0 F H 126 H 21 103/52 L 95 03/03/19 21:00 03/03/19 21:00 03/03/19 21:00 03/03/19 21:00 03/03/19 21:00 Intake and Output: 03/03/19 03/04/19 18:59 06:59 Intake Total 2593 373 Output Total 20 20 Balance 2573 353 - Medications Medications: Current Medications Acetaminophen (Tylenol 650mg/20.3ml Solution Ud) 640 mg PO Q6 PRN PRN Reason: FEVER>100.4F Last Admin: 03/03/19 15:18 Dose: 640 mg Baclofen (Lioresal) 10 mg PO DAILY [facility] Last Admin: 03/01/19 08:59 Dose: 10 mg Enoxaparin Sodium (Lovenox) 40 mg SC DAILY [facility]; Protocol Last Admin: 03/03/19 09:03 Dose: 40 mg Guaifenesin/Dextromethorphan (Robitussin Dm) 10 ml PO Q6 PRN PRN Reason: Cough Last Admin: 02/28/19 17:57 Dose: 10 ml Hydrocortisone Sodium Succinate (Solu-Cortef) 100 mg IVP Q8 [facility] Last Admin: 03/03/19 16:11 Dose: 100 mg Hydroxychloroquine Sulfate (Plaquenil) 200 mg PO DAILY [facility]; Protocol Last Admin: 03/01/19 08:54 Dose: 200 mg Trimethoprim/Sulfamethoxazole (300 mg/ Dextrose) 500 mls @ 250 mls/hr IVPB Q8@0700,1500,2300 [facility]; Protocol Last Admin: 03/03/19 15:19 Dose: 250 mls/hr Phenylephrine HCl 30 mg/ (Sodium Chloride) 253 mls @ 50.6 mls/hr IV .Q5H [facility]; Protocol Stop: 03/04/19 20:57 Last Admin: 03/03/19 21:07 Dose: 70 mcg/min, 35.42 mls/hr Insulin Human Regular (Humulin R) 0 units SC ACHS [facility]; Protocol Last Admin: 03/03/19 21:17 Dose: Not Given Ipratropium [place] (Atrovent) 0.5 mg IH RQ6 [facility] Last Admin: 03/03/19 19:21 Dose: 0.5 mg Lactulose (Enulose) 20 gm PO Q4 [facility] Last Admin: 03/03/19 21:01 Dose: 20 gm Levalbuterol HCl (Xopenex) 1.25 mg INH RQ4 PRN PRN Reason: Shortness of Breath Last Admin: 02/28/19 18:11 Dose: 1.25 mg Lidocaine (Lidoderm) 2 ea TD DAILY [facility] Last Admin: 03/03/19 09:02 Dose: Not Given Meclizine HCl (Antivert) 12.5 mg PO BID [facility] Last Admin: 03/01/19 16:48 Dose: Not Given Morphine Sulfate (Morphine) 2 mg IVP Q2 PRN PRN Reason: Restlessness Pantoprazole Sodium (Protonix Inj) 40 mg IVP DAILY [facility] Last Admin: 03/03/19 09:04 Dose: 40 mg Tamsulosin HCl (Flomax) 0.4 mg PO Q12 [facility] Last Admin: 03/01/19 20:11 Dose: Not Given Temazepam (Restoril) 15 mg PO HS PRN PRN Reason: Insomnia Last Admin: 02/28/19 08:59 Dose: 15 mg Verapamil HCl (Calan Tab) 80 mg PO Q8H [facility] Last Admin: 03/02/19 03:00 Dose: Not Given - Labs Labs: 03/03/19 04:41 03/03/19 04:41 PT 12.8 Seconds (9.8-13.1) 03/01/19 16:40 INR 1.1 03/01/19 16:40 APTT 44.5 Seconds (25.6-37.1) H 03/01/19 16:40 - Head Exam Head Exam: ATRAUMATIC - Eye Exam Eye Exam: Normal appearance - ENT Exam ENT Exam: Mucous Membranes Dry - Respiratory Exam Respiratory Exam: NORMAL BREATHING PATTERN - Cardiovascular Exam Cardiovascular Exam: +S1, +S2 - GI/Abdominal Exam GI & Abdominal Exam: Normal Bowel Sounds Assessment and Plan (1) Pancytopenia Assessment & Plan: prior improvement in cytopenias when holding hydroxychloroquine; held WBC and H/H improved, plt improved normal iron/b12/folate stores transfusion support PRN Status: Acute (2) Pancreatic mass Assessment & Plan: prior elevation in chromogranin A level; repeated ?neuroendocrine tumor not a good surgical candidate, will cont. to monitor Status: Acute
[2019-03-04] MEDS ORDERED: Sodium Chloride 3% 500 ML IV SCH ×2 (00:30→05:43)
[2019-03-04] MEDS: Ipratropium 0.02% Inhal Soln (0.5 mg/2.5 ml) UD IH SCH ×4 (02:29→19:32)
[2019-03-04 05:17] LABS: HEMOGLOBIN 10.8 g/dL (12.0-18.0); MEAN CELL VOLUME 97.5 fl (80.0-94.0); MEAN CORPUSCULAR HGB CONC 32.9 g/dL (33.0-37.0); RBC 3.37 Mil/uL (4.40-5.90)
[2019-03-04] MEDS: Phenylephrine 30 MG in Sodium Chloride 0.9% 250 ML IV SCH ×3 (05:22→23:30)
[2019-03-04 05:32] LABS: ALBUMIN 2.3 g/dL (3.5-5.0)
[2019-03-04] MEDS ORDERED: Sodium Bicarbonate 7.5% (0.9 MEQ/ML) 50ML INJ IV ONE (05:51)
[2019-03-04] MEDS: Sulfamethoxazole/Trimethoprim 300 MG in Dextrose 5% In Water 500 ML IVPB SCH ×3 (06:12→23:13)
[2019-03-04] MEDS: Insulin Regular 100 units/ml SC SCH ×5 (07:23→22:52)
[2019-03-04] MEDS: Enoxaparin 40 mg Syringe SC SCH (08:05)
--- NOTE | 2019-03-04 10:00 | RAD ---
Date of service: 03/04/2019 HISTORY: VENTED COMPARISON: No prior. TECHNIQUE: 1 view obtained. FINDINGS: In situ ETT tip which appears to lie 2.9 cm above anay. NGT is present, the distal aspect which is coiled upon itself with tip overlying the right upper/mid abdomen tip of which overlies left-sided PICC line is also again seen with tip left brachiocephalic vein LUNGS: There is large right-sided effusion which is associated with right lower lobe of atelectasis and/or infiltrate changes. Small to medium size left effusion and mild left basilar atelectasis and or infiltrate. Central pulmonary vasculature is slightly congested. PLEURA: As above., no pneumothorax apparent. CARDIOVASCULAR: Mild AA or atherosclerotic calcification present. Heart is enlarged.. No pulmonary vascular congestion. OSSEOUS STRUCTURES: Multilevel bilateral Ocampo rods again seen overlying the upper thoracic region.. VISUALIZED UPPER ABDOMEN: Normal. OTHER FINDINGS: None. IMPRESSION: Support lines and tubes as above.. Bilateral effusions and bibasilar atelectasis and/or infiltrates right greater than left. Mild central pulmonary venous congestion.
[2019-03-04] MEDS: Lidocaine 5% Patch TD SCH (11:42)
[2019-03-04] MEDS: Acetaminophen 650mg/20.3ml solution UD PO PRN (16:41)
[2019-03-04 16:55] LABS: ABG ALLEN TEST YES; ARTERIAL BLOOD GAS HCO3 13.9 mmol/L (21-28); ARTERIAL BLOOD GAS HEMOGLOBIN 11.1 g/dL (11.7-17.4); ARTERIAL BLOOD GAS O2 CAPACITY 15.3 mL/dL (16-24); ARTERIAL BLOOD GAS O2 CONTENT 15.1 ML/dL (15-23); ARTERIAL BLOOD GAS PCO2 55 mm/Hg (35-45); ARTERIAL BLOOD GAS PH 7.07 (7.35-7.45); ARTERIAL BLOOD GAS PO2 104 mm/Hg (80-100); ARTERIAL BLOOD GAS TCO2 17.6 mmol/L (22-28)
--- NOTE | 2019-03-04 18:57 | PN ---
DATE: 03/04/2019 CRITICAL CARE PROGRESS NOTE LOCATION: The patient in ICU, bed 425. TIME SPENT: 35 minutes. The patient is seen and evaluated at bedside. Past medical, surgical, family, and social history are reviewed. SUBJECTIVE: A 73-year-old male with history significant for chronic obstructive pulmonary disease, pneumonia, rheumatoid arthritis, paroxysmal atrial fibrillation with multiple admissions in the past for exacerbation of chronic obstructive pulmonary disease, admitted with progressively worsening shortness of breath, hypertension, noted to have respiratory failure, bilateral lower lobe pneumonia, varicella zoster lesion on the anterior abdominal wall, status post completed course of acyclovir, status post bronchoscopy with bronchioalveolar lavage, noted to have purulent bronchial secretions that is in the right lower lobe airway, status post [employer] intubated on mechanical ventilation, readmitted to ICU, currently DNR as per family request. On AC/PRVC rate 20, tidal volume of 400, FIO2 of 80%, saturating 96%, peak R-wave pressure 21, mean R-wave pressure at 10, end-tidal CO2 24, remains hypotensive, on multiple pressors; reduced urine output. PHYSICAL EXAMINATION: VITAL SIGNS: Temperature 98.8, heart rate 118-135, blood pressure of 127/57 to 129/60 with mean arterial of 80 through 83. Intake 4494, output 65, positive balance 4429. Weight 167 pounds, increased from 162 pounds. HEAD, EYES, EARS, NOSE AND THROAT: Pupils 2 to 3 mm reactive. No nystagmus. CHEST: Bilateral breath sounds, diminished in intensity more on the right than the left. HEART: S1, S2 distant. Rhythm irregular. ABDOMEN: Distended, soft. Finn in place, femoral arterial line in place. EXTREMITIES: With dependent edema. NEUROLOGIC: Minimal to no response to verbal commands. Grimaces to noxious stimuli. CURRENT MEDICATIONS: Tylenol 640 every 6 hours p.r.n., baclofen 10 mg p.o. daily, Lovenox 40 subcu daily, guaifenesin 10 mL p.o. every 6 hours p.r.n., hydrocortisone 100 mg IV every 8 hours, Plaquenil 200 mg p.o. daily, Accu-Chek with regular insulin coverage, ipratropium bromide 0.5 mg inhalation every 6 hours, lactulose 20 g p.o. every 4 hours, Xopenex 1.25 mg every 4 hours, Lidoderm daily, Antivert 12.5 mg twice daily, morphine 2 mg IV every 2 hours p.r.n. for , Levophed drip at 22.5 mcg/min, Protonix 40 daily, phenylephrine at 100 mcg/minute, hypertonic saline 500 mL at 20 mL/hr, Flomax 0.4 mg daily, Restoril 15 mg p.o. h.s., trimethoprim sulfamethoxazole 500 mL at 250 mL/hr, verapamil 80 mg p.o. every 8 hours on hold. LABORATORY DATA: WBC 3, hemoglobin 10.8, hematocrit 32.9, platelet count 66. PT 12.8, INR 1.1, PTT 44.5. ABG; pH 7.20, pCO2 is 50, pO2 of 84, bicarbonate 18.3, on AC 20 485% tidal volume of 400, PEEP of 3. SMA-7: Sodium 122, potassium 4, chloride 93, CO2 of 16, blood urea nitrogen 36, creatinine 2.4, random glucose 140. AST 210, ALT 430, alkaline phosphatase 380, total protein of 4.7, albumin 2.3, procalcitonin 9.87. Urinalysis osmolality 267. Random creatinine 30.1, random sodium 42, digoxin level 1.4, LORI screen negative, heparin-induced antibody negative. Serology influenza A and B negative. Streptococcus pneumoniae and legionella are negative. Sputum culture positive for yeast species, urine culture less than 1000 CFU mL. Blood culture no growth reported. 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 Chest x-ray done this morning, large right-sided effusion with associated right lower lobe atelectasis and/or infiltrate small to medium size left pleural effusion and mild left basal atelectasis and/or infiltrate. IMPRESSION: 1. Neurologic: Septic toxic metabolic encephalopathy, vent dependent, minimal to no response, persistent hypertension, renal failure, hyponatremia, and pneumonia. 2. Pulmonary: Hypercapnic hypoxic respiratory failure, bilateral pleural effusion more on the right with atelectasis, bilateral pneumonia, vent dependent, difficult to wean off the ventilator. Continue DuoNeb and Mucomyst. 3. Infectious Disease: Hypercapnic hypoxic respiratory failure, recurrent. Possible tracheobronchitis/pneumonia, healthcare related, immunocompromised, high risk for infections, on antibiotic as per Infectious Disease consult. 4. Cardiac: Paroxysmal atrial fibrillation with rapid ventricular response, hypertensive, on multiple pressors. 5. Renal: Hyponatremia on hypotonic saline secondary to associated hypovolemia. We will add diuretics and see the response with prerenal azotemia followed by renal consult. 6. Gastrointestinal: Abnormal LFTs trending down, associated hepatic congestion. Prognosis remains guarded. Currently DNR. Keep head of bed 30 degrees up and Finn in place. Freeman Roberts MD
--- NOTE | 2019-03-04 20:08 | PN ---
DATE: 03/04/2019 DAILY PROGRESS NOTE SUBJECTIVE: The patient is seen today, 03/04/2019. He is still intubated, on ventilator. The patient did not show any improvement with manifestation of severe anoxic encephalopathy. The patient is not responding to any verbal or noxious stimuli with absent corneal reflexes and pupillary reflexes. PHYSICAL EXAMINATION: VITAL SIGNS: Blood pressure 124/54, temperature 99.3, respiratory rate 24, and pulse 124. CHEST AND LUNGS: Good air exchange bilaterally. Bilateral basal rales. CARDIOVASCULAR SYSTEM: PMI not localized. S1, S2. No additional sounds. ABDOMEN: Decreased bowel sounds. No tenderness. No organomegaly. No masses. EXTREMITIES: No cyanosis, no clubbing, no edema. CENTRAL NERVOUS SYSTEM: The patient is unresponsive, on ventilator. ASSESSMENT: 1. Status post cardiac arrest. 2. Hypercapnic respiratory failure. 3. Pneumonia. 4. Possible adrenal insufficiency. PLAN: Continue hydrocortisone and continue current antibiotics. Discussed with the family, guarded prognosis. Currently, the patient is DNR and family will consider terminal extubation and comforting care. Michaela Wood MD
--- NOTE | 2019-03-04 21:12 | CP.PCM.PN ---
Subjective - Date & Time of Evaluation Date of Evaluation: 03/04/19 Time of Evaluation: 18:00 - Subjective Subjective: Vented on pressors Objective - Vital Signs/Intake and Output Vital Signs (last 24 hours): Temp Pulse Resp BP Pulse Ox 100 F H 127 H 25 H 118/48 L 96 03/04/19 20:00 03/04/19 20:00 03/04/19 20:00 03/04/19 20:00 03/04/19 20:00 Intake and Output: 03/04/19 03/05/19 18:59 06:59 Intake Total 2137.8 0 Output Total 50 Balance 2087.8 0 - Medications Medications: Current Medications Acetaminophen (Tylenol 650mg/20.3ml Solution Ud) 640 mg PO Q6 PRN PRN Reason: FEVER>100.4F Last Admin: 03/04/19 16:41 Dose: 640 mg Baclofen (Lioresal) 10 mg PO DAILY [facility] Last Admin: 03/01/19 08:59 Dose: 10 mg Enoxaparin Sodium (Lovenox) 40 mg SC DAILY [facility]; Protocol Last Admin: 03/04/19 08:05 Dose: 40 mg Furosemide (Lasix) 40 mg IV ONCE [facility] Last Admin: 03/04/19 13:23 Dose: 40 mg Guaifenesin/Dextromethorphan (Robitussin Dm) 10 ml PO Q6 PRN PRN Reason: Cough Last Admin: 02/28/19 17:57 Dose: 10 ml Hydrocortisone Sodium Succinate (Solu-Cortef) 100 mg IVP Q8 [facility] Last Admin: 03/04/19 19:38 Dose: 100 mg Hydroxychloroquine Sulfate (Plaquenil) 200 mg PO DAILY [facility]; Protocol Last Admin: 03/01/19 08:54 Dose: 200 mg Trimethoprim/Sulfamethoxazole (300 mg/ Dextrose) 500 mls @ 250 mls/hr IVPB Q8@0700,1500,2300 [facility]; Protocol Last Admin: 03/04/19 15:46 Dose: 250 mls/hr Sodium Chloride (Hypertonic Saline 3%) 500 mls @ 20 mls/hr IV .Q24H [facility] Stop: 03/05/19 00:26 Last Admin: 03/04/19 06:00 Dose: 20 mls/hr Norepinephrine Bitartrate 16 (mg/ Dextrose) 266 mls @ 19.95 mls/hr IV .[id number] [facility]; Protocol Stop: 03/05/19 09:40 Last Titration: 03/04/19 20:50 Dose: 20 mcg/min, 19.95 mls/hr Insulin Human Regular (Humulin R) 0 units SC ACHS [facility]; Protocol Last Admin: 03/04/19 16:40 Dose: 1 unit Ipratropium [place] (Atrovent) 0.5 mg IH RQ6 [facility] Last Admin: 03/04/19 19:32 Dose: 0.5 mg Lactulose (Enulose) 20 gm PO Q4 [facility] Last Admin: 03/04/19 20:13 Dose: 20 gm Levalbuterol HCl (Xopenex) 1.25 mg INH RQ4 PRN PRN Reason: Shortness of Breath Last Admin: 02/28/19 18:11 Dose: 1.25 mg Lidocaine (Lidoderm) 2 ea TD DAILY [facility] Last Admin: 03/04/19 11:42 Dose: Not Given Meclizine HCl (Antivert) 12.5 mg PO BID [facility] Last Admin: 03/01/19 16:48 Dose: Not Given Pantoprazole Sodium (Protonix Inj) 40 mg IVP DAILY [facility] Last Admin: 03/04/19 08:15 Dose: 40 mg Tamsulosin HCl (Flomax) 0.4 mg PO Q12 [facility] Last Admin: 03/01/19 20:11 Dose: Not Given Temazepam (Restoril) 15 mg PO HS PRN PRN Reason: Insomnia Last Admin: 02/28/19 08:59 Dose: 15 mg Verapamil HCl (Calan Tab) 80 mg PO Q8H [facility] Last Admin: 03/02/19 03:00 Dose: Not Given - Labs Labs: 03/04/19 04:30 03/04/19 04:30 PT 12.8 Seconds (9.8-13.1) 03/01/19 16:40 INR 1.1 03/01/19 16:40 APTT 44.5 Seconds (25.6-37.1) H 03/01/19 16:40 - Head Exam Head Exam: ATRAUMATIC - Eye Exam Eye Exam: Normal appearance - ENT Exam ENT Exam: Mucous Membranes Dry - Respiratory Exam Respiratory Exam: Decreased Breath Sounds - Cardiovascular Exam Cardiovascular Exam: +S1, +S2 - GI/Abdominal Exam GI & Abdominal Exam: Normal Bowel Sounds Assessment and Plan (1) Pancytopenia Assessment & Plan: prior improvement in cytopenias when holding hydroxychloroquine; held WBC and H/H improved, plt improved normal iron/b12/folate stores transfusion support PRN Status: Acute (2) Pancreatic mass Assessment & Plan: prior elevation in chromogranin A level; repeated ?neuroendocrine tumor not a good surgical candidate, will cont. to monitor Status: Acute
--- NOTE | 2019-03-05 01:47 | PN ---
DATE: 03/04/2019 SUBJECTIVE: The patient is unresponsive on a ventilator. He is on Levophed at 20 mcg and phenylephrine at 17 mcg per minute. He has significant upper body edema. PHYSICAL EXAMINATION: VITAL SIGNS: Blood pressure 127/51, heart rate 130, temperature 99.7, respirations 24. HEENT: Facial edema. CHEST: Bilateral rhonchi. HEART: S1 and S2, regular. EXTREMITIES: 2+ arm edema. LABORATORY DATA: Today's hemoglobin and hematocrit 10.8 and 32.9, white count 3, platelet count 66,000. SMA-7: Sodium 122, potassium 4, chloride 93, CO2 of 16, glucose 140, BUN 36, creatinine 2.4. Liver enzymes are still elevated. Chest x-ray, bilateral effusion and bibasilar atelectasis and/or infiltrates. Right greater than left. Mild central pulmonary venous congestion. ASSESSMENT: 1. Bilateral pneumonia, respiratory failure. 2. Sepsis and septic shock. 3. Hyponatremia. 4. Worsening renal insufficiency. 5. Elevated liver enzymes. 6. Pancytopenia. RECOMMENDATIONS: Continue current supportive measures including vasopressors, continue hypertonic 3% saline at 20 mL an hour. The patient did receive Lasix 40 mg intravenously as a single dose, however, without significant urine output. Continue subcutaneous Lovenox at 30 mg daily. Continue IV Bactrim at 300 mg every 8 hours. Overall prognosis is grave. Geo Whitmore MD
[2019-03-05] MEDS: Ipratropium 0.02% Inhal Soln (0.5 mg/2.5 ml) UD IH SCH ×3 (03:29→13:11)
[2019-03-05 05:10] LABS: ABG ALLEN TEST YES; ARTERIAL BLOOD GAS HCO3 12.6 mmol/L (21-28); ARTERIAL BLOOD GAS HEMOGLOBIN 11.2 g/dL (11.7-17.4); ARTERIAL BLOOD GAS O2 CAPACITY 15.4 mL/dL (16-24); ARTERIAL BLOOD GAS O2 CONTENT 15.3 ML/dL (15-23); ARTERIAL BLOOD GAS O2 SAT 99.6 % (95-98); ARTERIAL BLOOD GAS PCO2 71 mm/Hg (35-45); ARTERIAL BLOOD GAS PH 6.97 (7.35-7.45); ARTERIAL BLOOD GAS PO2 141 mm/Hg (80-100); ARTERIAL BLOOD GAS TCO2 18.5 mmol/L (22-28)
[2019-03-05 05:37] LABS: MEAN CELL VOLUME 98.7 fl (80.0-94.0); MEAN CORPUSCULAR HEMOGLOBIN 31.4 pg (27.0-31.0); MEAN CORPUSCULAR HGB CONC 31.8 g/dL (33.0-37.0); RBC 3.5 Mil/uL (4.40-5.90); RED CELL DISTRIBUTION WIDTH 19.8 % (11.5-14.5); WHITE BLOOD COUNT 3.6 K/uL (4.8-10.8)
[2019-03-05 05:46] LABS: CALCIUM 7.9 mg/dL (8.4-10.2)
[2019-03-05] MEDS ORDERED: Sodium Bicarbonate 7.5% (0.9 MEQ/ML) 50ML INJ IV ONE (06:02)
[2019-03-05] MEDS: Sulfamethoxazole/Trimethoprim 300 MG in Dextrose 5% In Water 500 ML IVPB SCH (06:19)
[2019-03-05] MEDS ORDERED: Sodium Bicarbonate (8.4%) 50 Meq Syringe IV ONE ×2 (06:30)
[2019-03-05] MEDS: Insulin Regular 100 units/ml SC SCH ×2 (06:52→11:53)
--- NOTE | 2019-03-05 07:40 | RAD ---
Date of service: 03/05/2019 HISTORY: Mechanically ventilated. COMPARISON: Portable chest 02/24/2019, 4:20 a.m.. TECHNIQUE: 1 view obtained. FINDINGS: LUNGS: Endotracheal and orogastric tubes are unchanged in position once again. Persistent airspace disease occupies the mid to inferior right lung zone and has increased limited retrocardiac airspace disease in the left lower lobe. Linear atelectasis is increased at the left base laterally. PLEURA: Right pleural effusion likely. Small pleural effusion not excluded once again. CARDIOVASCULAR: Calcific atherosclerotic changes are seen related to the thoracic aorta. Silhouette obscured as well as right hilar vascular markings. Left hilar vascular markings do not appear significantly increased and no reticular changes are seen in the interstitium to suggest pulmonary vascular congestion/CHF. OSSEOUS STRUCTURES: Upper thoracic spinal fusion hardware reiterated. VISUALIZED UPPER ABDOMEN: Normal. OTHER FINDINGS: None. IMPRESSION: Interval worsening of right pleural effusion with near complete opacification of the right hemithorax. Infiltrate is unchanged at the right chest and may have increased as well. Persistent left lower lobe infiltrate with linear atelectasis increased at the left base.
--- NOTE | 2019-03-05 07:42 | CP.CCUPN ---
CCU Subjective - Physician Review Subjective (Free Text): 03/05/19 17:0 The patient was Seen/interviewed and examined by me at the bedside during ICU round, Medical records reviewed and Management issues were discussed and formulated with the house staff. Events reviewed 73 years old Male with past medical history of HTN, Hypercholesterolemia, Hyperlipidemia, Arthritis (BACK), Asthma, Back Problems, Bronchitis, CAD, COPD, Dementia, Diabetes, Fractures (Hip), Pneumonia, Rheumatoid Arthritis, Sleep Apnea and Alzheimer's Disease Who presents to the ED for an evaluation of shortness of breath onset for four days associated with clear sputum Chest X Ray shows Stable RLL infiltrate with effusion and persistence of the LLL atelectasis Patient was initially Admitted to ICU with Sepsis from Community Acquired pneumonia with Pleural effusion Patient was on Zovirax and Airborne precautions for (+) Herpes Zoster. His clinical and respiratory status improved and he was transferred out of the in ICU Patient was transferred back to the intensive care unit yesterday for tachycardia and chest pain, vital sign at that time was 96/64, heart rate of 160, afebrile, saturation of 97% Patient received IV fluid bolus of total 500 mL blood pressure did not improve and he was transferred to back to the ICU Patient heart rate and respiratory status stabilized and he was transferred out of the ICU Hospital course complicated by cardiac arrest, possible chronic anoxic brain injury and was transferred to the back to the ICU This morning Patient remains orally intubated, off sedation, unresponsive to painful stimuli On 2 vasopressors with levophed and Dev-Synephrine Afebrile overnight, Last 24H I&O 3557/65 Critical Care Time Spent (in minutes): 45 CCU Objective - Vital Signs / Intake & Output Vital Signs (Last 4 hours): Vital Signs Temp Pulse Resp BP Pulse Ox 03/05/19 07:00 98.2 F 111 H 24 107/51 L 95 03/05/19 06:00 98.2 F 113 H 24 109/47 L 95 03/05/19 05:00 98.4 F 119 H 30 H 111/45 L 93 L 03/05/19 04:00 98.6 F 116 H 25 H 115/41 L 95 Intake and Output (Last 8hrs): Intake & Output 03/04/19 03/05/19 03/05/19 22:59 06:59 14:59 Intake Total 1418.8 1100 Output Total 55 10 Balance 1363.8 1090 Weight 175 lb Intake: IV 878.8 120 Intake, Piggyback 500 Tube Feeding 360 360 Free Water Flush 180 120 Output: Urine 55 10 Urethral (Milligan) 50 10 Urine, Voided 5 - Physical Exam Physical Exam Limitations: Positive for: Altered Mental Status, Clinical Condition Head: Positive for: Atraumatic, Normocephalic Pupils: Positive for: Sluggish (on the R with minimal response ), Pinpoint (on the L without reactivity ), Other (spontanous eye opening and closing ) Extroacular Muscles: Positive for: EOMI Conjunctiva: Positive for: Normal. Negative for: Injected, Icteric Mouth: Positive for: Moist Mucous Membranes, Other (unable to appreciated gag reflex, anay reflex noted. ETT and OGT noted ) Nose (External): Positive for: Other (NC on ) Nose (Internal): Positive for: Normal Inspection Neck: Positive for: Trachea Midline. Negative for: Meningeal Signs, MIDLINE TENDERNESS, Paraspinal Tenderness, JVD, Lymphadenopathy, Bruit, Other Respiratory/Chest: Positive for: Decreased Breath Sounds, Rhonchi (b/l on the lower lobes ), Other (course breath sounds b/l ). Negative for: Respiratory Distress, Accessory Muscle Use, Wheezes, Rales, Tachypneic Cardiovascular: Positive for: Irregular Rhythm, Tachycardic, Other (subclavian line noted on L, intact ) Abdomen: Positive for: Normal Bowel Sounds, Hernias (R side, no skin changes). Negative for: Tenderness, Distention Genitourinary Male: Positive for: Other (milligan intact draning yellow urine. R arterial line noted, intact ) Upper Extremity: Positive for: Normal Inspection, Other (contracted fingers ) Lower Extremity: Positive for: Normal Inspection, Edema (mild edema in the lower ext b/l ) Neurological: Positive for: Other (intubated, no response to verbal or physical stimuli ). Negative for: GCS=15, CN II-XII Intact, Speech Normal, Motor Func Grossly Intact, Normal Sensory Function Psychiatric: Negative for: Alert, Oriented x 3 - Medications Active Medications: Active Medications Generic Name Dose Route Start Last Admin Trade Name Freq PRN Reason Stop Dose Admin Acetaminophen 640 mg 03/02/19 16:00 03/04/19 16:41 Tylenol 650mg/20.3ml Solution Ud PO 640 mg Q6 PRN Administration FEVER>100.4F Baclofen 10 mg 02/04/19 09:00 03/01/19 08:59 Lioresal PO 10 mg DAILY ARTEMIO Administration Enoxaparin Sodium 40 mg 03/03/19 09:00 03/04/19 08:05 Lovenox SC 40 mg DAILY ARTEMIO Administration Protocol Furosemide 40 mg 03/04/19 13:15 03/04/19 13:23 Lasix IV 40 mg ONCE ARTEMIO Administration Guaifenesin/Dextromethorphan 10 ml 02/20/19 21:59 02/28/19 17:57 Robitussin Dm PO 10 ml Q6 PRN Administration Cough Hydrocortisone Sodium Succinate 100 mg 03/02/19 17:00 03/05/19 01:29 Solu-Cortef IVP 100 mg Q8 ATREMIO Administration Hydroxychloroquine Sulfate 200 mg 02/04/19 09:00 03/01/19 08:54 Plaquenil PO 200 mg DAILY ARTEMIO Administration Protocol Trimethoprim/Sulfamethoxazole 500 mls @ 250 mls/hr 02/24/19 07:00 03/05/19 06:19 300 mg/ Dextrose IVPB 250 mls/hr Q8@0700,1500,2300 [facility] Administration Protocol Norepinephrine Bitartrate 16 266 mls @ 19.95 mls/hr 03/04/19 20:33 03/05/19 04:06 mg/ Dextrose IV 03/05/19 09:40 22.5 mcg/min .[id number] ONE 22.44 mls/hr Titration Protocol 20 MCG/MIN Phenylephrine HCl 30 mg/ 253 mls @ 25.3 mls/hr 03/04/19 23:00 03/04/19 23:30 Sodium Chloride IV 03/05/19 22:51 50 mcg/min .Q10H ARTEMIO 25.3 mls/hr Administration Protocol 50 MCG/MIN Insulin Human Regular 0 units 02/04/19 07:30 03/05/19 06:52 Humulin R SC Not Given ACHS [facility] Protocol Ipratropium [place] 0.5 mg 03/03/19 14:00 03/05/19 07:07 Atrovent IH 0.5 mg RQ6 ARTEMIO Administration Lactulose 20 gm 02/22/19 21:00 03/05/19 04:19 Enulose PO 20 gm Q4 ARTEMIO Administration Levalbuterol HCl 1.25 mg 02/11/19 20:52 02/28/19 18:11 Xopenex INH 1.25 mg RQ4 PRN Administration Shortness of Breath Lidocaine 2 ea 02/20/19 12:30 03/04/19 11:42 Lidoderm TD Not Given DAILY ARTEMIO Meclizine HCl 12.5 mg 02/26/19 15:15 03/01/19 16:48 Antivert PO Not Given BID ARTEMIO Pantoprazole Sodium 40 mg 03/02/19 09:00 03/04/19 08:15 Protonix Inj IVP 40 mg DAILY ARTEMIO Administration Tamsulosin HCl 0.4 mg 02/04/19 21:00 03/01/19 20:11 Flomax PO Not Given Q12 ARTEMIO Temazepam 15 mg 02/25/19 20:49 02/28/19 08:59 Restoril PO 15 mg HS PRN Administration Insomnia Verapamil HCl 80 mg 02/19/19 10:45 03/02/19 03:00 Calan Tab PO Not Given Q8H ARTEMIO - Patient Studies Lab Studies: Microbiology Studies 03/02/19 15:30 Blood Culture - Preliminary Blood NO GROWTH AFTER 48 HOURS 03/02/19 15:10 Blood Culture - Preliminary Blood-Venous NO GROWTH AFTER 48 HOURS 03/02/19 15:46 Gram Stain - Final Trachasp Sputum Culture - Final Yeast Species Lab Studies 03/05/19 03/05/19 03/05/19 Range/Units 05:04 04:45 04:45 WBC 3.6 L (4.8-10.8) K/uL RBC 3.50 L (4.40-5.90) Mil/uL Hgb 11.0 L (12.0-18.0) g/dL Hct 34.5 L (35.0-51.0) % MCV 98.7 H (80.0-94.0) fl MCH 31.4 H (27.0-31.0) pg MCHC 31.8 L (33.0-37.0) g/dL RDW 19.8 H (11.5-14.5) % Plt Count 71 L (130-400) K/uL pCO2 71 H* (35-45) mm/Hg pO2 141 H (80-100) mm/Hg HCO3 12.6 L (21-28) mmol/L ABG pH 6.97 L* (7.35-7.45) ABG Total CO2 18.5 L (22-28) mmol/L ABG O2 Saturation 99.6 H (95-98) % ABG O2 Content 15.3 (15-23) ML/dL ABG Base Excess -15.8 L (-2.0-3.0) mmol/L ABG Hemoglobin 11.2 L (11.7-17.4) g/dL ABG Carboxyhemoglobin 1.7 H (0.5-1.5) % POC ABG HHb (Measured) 0.4 (0.0-5.0) % ABG Methemoglobin 2.2 (0.0-3.0) % ABG O2 Capacity 15.4 L (16-24) mL/dL Isacc Test Yes A-a O2 Difference 376.0 mm/Hg Hgb O2 Saturation 95.7 (95.0-98.0) % Vent Mode A/c Mechanical Rate 24 FiO2 85.0 % Tidal Volume 400 PEEP 3 Crit Value Called To Roddy arana Crit Value Called By 292 Crit Value Read Back Y Blood Gas Notified Time 510 Sodium 125 L (132-148) mmol/l Potassium 3.8 (3.6-5.0) MMOL/L Chloride 93 L (98-107) mmol/L Carbon Dioxide 16 L (22-30) mmol/L Anion Gap 20 (10-20) BUN 41 H (9-20) mg/dl Creatinine 2.7 H (0.8-1.5) mg/dl Est GFR ( Amer) 28 Est GFR (Non-Af Amer) 23 POC Glucose (mg/dL) (65-110) mg/dL Random Glucose 102 (75-110) mg/dL Calcium 7.9 L (8.4-10.2) mg/dL 03/04/19 03/04/19 03/04/19 Range/Units 21:37 16:15 11:14 WBC (4.8-10.8) K/uL RBC (4.40-5.90) Mil/uL Hgb (12.0-18.0) g/dL Hct (35.0-51.0) % MCV (80.0-94.0) fl MCH (27.0-31.0) pg MCHC (33.0-37.0) g/dL RDW (11.5-14.5) % Plt Count (130-400) K/uL pCO2 (35-45) mm/Hg pO2 (80-100) mm/Hg HCO3 (21-28) mmol/L ABG pH (7.35-7.45) ABG Total CO2 (22-28) mmol/L ABG O2 Saturation (95-98) % ABG O2 Content (15-23) ML/dL ABG Base Excess (-2.0-3.0) mmol/L ABG Hemoglobin (11.7-17.4) g/dL ABG Carboxyhemoglobin (0.5-1.5) % POC ABG HHb (Measured) (0.0-5.0) % ABG Methemoglobin (0.0-3.0) % ABG O2 Capacity (16-24) mL/dL Isacc Test A-a O2 Difference mm/Hg Hgb O2 Saturation (95.0-98.0) % Vent Mode Mechanical Rate FiO2 % Tidal Volume PEEP Crit Value Called To Crit Value Called By Crit Value Read Back Blood Gas Notified Time Sodium (132-148) mmol/l Potassium (3.6-5.0) MMOL/L Chloride (98-107) mmol/L Carbon Dioxide (22-30) mmol/L Anion Gap (10-20) BUN (9-20) mg/dl Creatinine (0.8-1.5) mg/dl Est GFR ( Amer) Est GFR (Non-Af Amer) POC Glucose (mg/dL) 131 H 173 H 185 H (65-110) mg/dL Random Glucose (75-110) mg/dL Calcium (8.4-10.2) mg/dL 03/04/19 03/04/19 03/03/19 Range/Units 05:11 04:29 21:04 WBC (4.8-10.8) K/uL RBC (4.40-5.90) Mil/uL Hgb (12.0-18.0) g/dL Hct (35.0-51.0) % MCV (80.0-94.0) fl MCH (27.0-31.0) pg MCHC (33.0-37.0) g/dL RDW (11.5-14.5) % Plt Count (130-400) K/uL pCO2 55 H (35-45) mm/Hg pO2 104 H (80-100) mm/Hg HCO3 13.9 L (21-28) mmol/L ABG pH 7.07 L* (7.35-7.45) ABG Total CO2 17.6 L (22-28) mmol/L ABG O2 Saturation 99.0 H (95-98) % ABG O2 Content 15.1 (15-23) ML/dL ABG Base Excess -14.1 L (-2.0-3.0) mmol/L ABG Hemoglobin 11.1 L (11.7-17.4) g/dL ABG Carboxyhemoglobin 1.4 (0.5-1.5) % POC ABG HHb (Measured) 1.0 (0.0-5.0) % ABG Methemoglobin 1.8 (0.0-3.0) % ABG O2 Capacity 15.3 L (16-24) mL/dL Isacc Test Yes A-a O2 Difference 433.0 mm/Hg Hgb O2 Saturation 95.8 (95.0-98.0) % Vent Mode A/c Mechanical Rate 20 FiO2 85.0 % Tidal Volume 400 PEEP 3 Crit Value Called To Dr marina reed Crit Value Called By Rogelio Crit Value Read Back Y Blood Gas Notified Time 519 Sodium (132-148) mmol/l Potassium (3.6-5.0) MMOL/L Chloride (98-107) mmol/L Carbon Dioxide (22-30) mmol/L Anion Gap (10-20) BUN (9-20) mg/dl Creatinine (0.8-1.5) mg/dl Est GFR ( Amer) Est GFR (Non-Af Amer) POC Glucose (mg/dL) 146 H 141 H (65-110) mg/dL Random Glucose (75-110) mg/dL Calcium (8.4-10.2) mg/dL 03/03/19 03/03/19 03/03/19 Range/Units 16:07 11:38 04:20 WBC (4.8-10.8) K/uL RBC (4.40-5.90) Mil/uL Hgb (12.0-18.0) g/dL Hct (35.0-51.0) % MCV (80.0-94.0) fl MCH (27.0-31.0) pg MCHC (33.0-37.0) g/dL RDW (11.5-14.5) % Plt Count (130-400) K/uL pCO2 (35-45) mm/Hg pO2 (80-100) mm/Hg HCO3 (21-28) mmol/L ABG pH (7.35-7.45) ABG Total CO2 (22-28) mmol/L ABG O2 Saturation (95-98) % ABG O2 Content (15-23) ML/dL ABG Base Excess (-2.0-3.0) mmol/L ABG Hemoglobin (11.7-17.4) g/dL ABG Carboxyhemoglobin (0.5-1.5) % POC ABG HHb (Measured) (0.0-5.0) % ABG Methemoglobin (0.0-3.0) % ABG O2 Capacity (16-24) mL/dL Isacc Test A-a O2 Difference mm/Hg Hgb O2 Saturation (95.0-98.0) % Vent Mode Mechanical Rate FiO2 % Tidal Volume PEEP Crit Value Called To Crit Value Called By Crit Value Read Back Blood Gas Notified Time Sodium (132-148) mmol/l Potassium (3.6-5.0) MMOL/L Chloride (98-107) mmol/L Carbon Dioxide (22-30) mmol/L Anion Gap (10-20) BUN (9-20) mg/dl Creatinine (0.8-1.5) mg/dl Est GFR ( Amer) Est GFR (Non-Af Amer) POC Glucose (mg/dL) 184 H 160 H 117 H (65-110) mg/dL Random Glucose (75-110) mg/dL Calcium (8.4-10.2) mg/dL 03/02/19 03/02/19 03/02/19 Range/Units 20:40 18:17 16:28 WBC (4.8-10.8) K/uL RBC (4.40-5.90) Mil/uL Hgb (12.0-18.0) g/dL Hct (35.0-51.0) % MCV (80.0-94.0) fl MCH (27.0-31.0) pg MCHC (33.0-37.0) g/dL RDW (11.5-14.5) % Plt Count (130-400) K/uL pCO2 (35-45) mm/Hg pO2 (80-100) mm/Hg HCO3 (21-28) mmol/L ABG pH (7.35-7.45) ABG Total CO2 (22-28) mmol/L ABG O2 Saturation (95-98) % ABG O2 Content (15-23) ML/dL ABG Base Excess (-2.0-3.0) mmol/L ABG Hemoglobin (11.7-17.4) g/dL ABG Carboxyhemoglobin (0.5-1.5) % POC ABG HHb (Measured) (0.0-5.0) % ABG Methemoglobin (0.0-3.0) % ABG O2 Capacity (16-24) mL/dL Isacc Test A-a O2 Difference mm/Hg Hgb O2 Saturation (95.0-98.0) % Vent Mode Mechanical Rate FiO2 % Tidal Volume PEEP Crit Value Called To Crit Value Called By Crit Value Read Back Blood Gas Notified Time Sodium (132-148) mmol/l Potassium (3.6-5.0) MMOL/L Chloride (98-107) mmol/L Carbon Dioxide (22-30) mmol/L Anion Gap (10-20) BUN (9-20) mg/dl Creatinine (0.8-1.5) mg/dl Est GFR ( Amer) Est GFR (Non-Af Amer) POC Glucose (mg/dL) 71 96 69 (65-110) mg/dL Random Glucose (75-110) mg/dL Calcium (8.4-10.2) mg/dL Laboratory Results - last 24 hr 03/02/19 03/02/19 03/02/19 16:28 18:17 20:40 WBC RBC Hgb Hct MCV MCH MCHC RDW Plt Count pCO2 pO2 HCO3 ABG pH ABG Total CO2 ABG O2 Saturation ABG O2 Content ABG Base Excess ABG Hemoglobin ABG Carboxyhemoglobin POC ABG HHb (Measured) ABG Methemoglobin ABG O2 Capacity Isacc Test A-a O2 Difference Hgb O2 Saturation Vent Mode Mechanical Rate FiO2 Tidal Volume PEEP Crit Value Called To Crit Value Called By Crit Value Read Back Blood Gas Notified Time Sodium Potassium Chloride Carbon Dioxide Anion Gap BUN Creatinine Est GFR ( Amer) Est GFR (Non-Af Amer) POC Glucose (mg/dL) 69 96 71 Random Glucose Calcium 03/03/19 03/03/19 03/03/19 04:20 11:38 16:07 WBC RBC Hgb Hct MCV MCH MCHC RDW Plt Count pCO2 pO2 HCO3 ABG pH ABG Total CO2 ABG O2 Saturation ABG O2 Content ABG Base Excess ABG Hemoglobin ABG Carboxyhemoglobin POC ABG HHb (Measured) ABG Methemoglobin ABG O2 Capacity Isacc Test A-a O2 Difference Hgb O2 Saturation Vent Mode Mechanical Rate FiO2 Tidal Volume PEEP Crit Value Called To Crit Value Called By Crit Value Read Back Blood Gas Notified Time Sodium Potassium Chloride Carbon Dioxide Anion Gap BUN Creatinine Est GFR ( Amer) Est GFR (Non-Af Amer) POC Glucose (mg/dL) 117 H 160 H 184 H Random Glucose Calcium 03/03/19 03/04/19 03/04/19 21:04 04:29 05:11 WBC RBC Hgb Hct MCV MCH MCHC RDW Plt Count pCO2 55 H pO2 104 H HCO3 13.9 L ABG pH 7.07 L* ABG Total CO2 17.6 L ABG O2 Saturation 99.0 H ABG O2 Content 15.1 ABG Base Excess -14.1 L ABG Hemoglobin 11.1 L ABG Carboxyhemoglobin 1.4 POC ABG HHb (Measured) 1.0 ABG Methemoglobin 1.8 ABG O2 Capacity 15.3 L Isacc Test Yes A-a O2 Difference 433.0 Hgb O2 Saturation 95.8 Vent Mode A/c Mechanical Rate 20 FiO2 85.0 Tidal Volume 400 PEEP 3 Crit Value Called To Dr marina reed Crit Value Called By Crit Value Read Back Y Blood Gas Notified Time 519 Sodium Potassium Chloride Carbon Dioxide Anion Gap BUN Creatinine Est GFR ( Amer) Est GFR (Non-Af Amer) POC Glucose (mg/dL) 141 H 146 H Random Glucose Calcium 03/04/19 03/04/19 03/04/19 11:14 16:15 21:37 WBC RBC Hgb Hct MCV MCH MCHC RDW Plt Count pCO2 pO2 HCO3 ABG pH ABG Total CO2 ABG O2 Saturation ABG O2 Content ABG Base Excess ABG Hemoglobin ABG Carboxyhemoglobin POC ABG HHb (Measured) ABG Methemoglobin ABG O2 Capacity Isacc Test A-a O2 Difference Hgb O2 Saturation Vent Mode Mechanical Rate FiO2 Tidal Volume PEEP Crit Value Called To Crit Value Called By Crit Value Read Back Blood Gas Notified Time Sodium Potassium Chloride Carbon Dioxide Anion Gap BUN Creatinine Est GFR ( Amer) Est GFR (Non-Af Amer) POC Glucose (mg/dL) 185 H 173 H 131 H Random Glucose Calcium 03/05/19 03/05/19 03/05/19 04:45 04:45 05:04 WBC 3.6 L RBC 3.50 L Hgb 11.0 L Hct 34.5 L MCV 98.7 H MCH 31.4 H MCHC 31.8 L RDW 19.8 H Plt Count 71 L pCO2 71 H* pO2 141 H HCO3 12.6 L ABG pH 6.97 L* ABG Total CO2 18.5 L ABG O2 Saturation 99.6 H ABG O2 Content 15.3 ABG Base Excess -15.8 L ABG Hemoglobin 11.2 L ABG Carboxyhemoglobin 1.7 H POC ABG HHb (Measured) 0.4 ABG Methemoglobin 2.2 ABG O2 Capacity 15.4 L Isacc Test Yes A-a O2 Difference 376.0 Hgb O2 Saturation 95.7 Vent Mode A/c Mechanical Rate 24 FiO2 85.0 Tidal Volume 400 PEEP 3 Crit Value Called To Roddy arana Crit Value Called By 292 Crit Value Read Back Y Blood Gas Notified Time 510 Sodium 125 L Potassium 3.8 Chloride 93 L Carbon Dioxide 16 L Anion Gap 20 BUN 41 H Creatinine 2.7 H Est GFR ( Amer) 28 Est GFR (Non-Af Amer) 23 POC Glucose (mg/dL) Random Glucose 102 Calcium 7.9 L Radiology Impressions: Radiology Impressions Chest X-Ray 03/04/19 05:00 IMPRESSION: Support lines and tubes as above.. Bilateral effusions and bibasilar atelectasis and/or infiltrates right greater than left. Mild central pulmonary venous congestion. Chest X-Ray 03/05/19 05:00 IMPRESSION: Interval worsening of right pleural effusion with near complete opacification of the right hemithorax. Infiltrate is unchanged at the right chest and may have increased as well. Persistent left lower lobe infiltrate with linear atelectasis increased at the left base. Fingerstick Blood Sugar Results: 107 Review of Systems - Review of Systems Systems not reviewed;Unavailable: Intubated Critical Care Progress Note - Ventilator Checklist Head of Bed 30 Degrees: Yes Daily Sedation Vacation: Yes Daily Assessment of Readiness to Wean: Yes Daily Spontaneous Breathing Trial: Yes PUD Prophalyxis: Yes DVT Prophylaxis: Yes Oral Care with Chlorhexidine Gluconate {CHG}: Yes - Extremities/Vascular Does the Patient have a Central Venous Catheter?: Yes Does the Patient need a Central Venous Catheter?: Yes - Nutrition Nutrition: Nutrition Category Date Time Status NPO Diet [DIET] Diets 03/02/19 Breakfast Active Assessment/Plan (1) Cardiac arrest Current Visit: Yes Status: Acute Priority: High Comment: Patient returned back to the ICU status post acute cardiac arrest with return of spontaneous circulation Currently orally intubated No neurological improvement, remains unresponsive to painful stimuli Likely anoxic brain injury We will consult palliative care Discussed with the family diagnosis, treatment plans and alternative, and very poor prognosis (2) Acute on chronic respiratory failure with hypoxemia Current Visit: Yes Status: Chronic Priority: High Comment: S/P Acute cardic arrest Multifactorial from COPD, interstitial lung disease, pneumonia with sepsis and chronic right-sided pleural effusion Patient completed several course of intravenous antibiotic Currently on IV Bactrim for stenotrophomonas in sputum cx (3) Paroxysmal atrial fibrillation with rapid ventricular response Current Visit: Yes Status: Acute Priority: High Comment: Patient was likely a paroxysmal A. fib /A flutter, started on Cardizem drip today Continue Verapamil HCl 80 mg PO Q8H Trend cardiac enzymes Electrolyte reviewed S/P PO digoxin and off Cardizem drip (4) CHF (congestive heart failure) Current Visit: Yes Status: Acute Priority: High Comment: Patient with evidence of fluid overload on exam Continue PRN diuresis as blood pressure permits Currently on 2 vasopressors with levophed and Dev-Synephrine (5) Pleural effusion Current Visit: Yes Status: Acute (6) COPD (chronic obstructive pulmonary disease) Current Visit: Yes Status: Chronic Priority: High Comment: Continue nebulizer therapy. Wean off IV Steroids (7) ILD (interstitial lung disease) Current Visit: Yes Status: Chronic Priority: High Comment: Likely related to RA. Continue Hydrocortisone and Hydroxychloroquine
--- NOTE | 2019-03-05 08:58 | CP.PCM.PN ---
Subjective - Date & Time of Evaluation Date of Evaluation: 03/05/19 Time of Evaluation: 08:44 - Subjective Subjective: Seen on morning rounds in ICU. Remains orally intubated (4th day). Mechanically ventilated and unresponsive. Chest x-ray shows increased RLL opacification. Labs also reviewed. Discussed with patient's nurse. Tracheal aspirate culture-yeast. PAP 24cm, Plateau 22cm, MAP 12cm. RR 24/24, EtCO2 34mm, SpO2 94% (.85 FiO2). BP 108/40, MBP 62mm, Tmax 100.4 degrees. Dependant edema +, no cyanosis, extremities warm/pink. Neck supple, trachea deviated towards the right. Unresponsive to painful stimuli, no cough reflex. Suctioned scant volume of beige secretions. No dullness on percussion anteriorly. No subcut emphysema. Breath sounds fairly well heard anteriorly, equally in both lungs. Posteriorly breath sounds are diminished with bronchial breathing RLL. Scattered rhonchi and medium rales present bilaterally in lower lobes. Few scattered expiratory wheezes heard on the left. Heart sounds are distant, tachycardic. Abdomen is soft and non-tender with + BS. S/P 'code blue', remains unresponsive. Declining renal function. Remains on dual pressors. Continued supportive care, DNR status . CCT 40min Objective - Vital Signs/Intake and Output Vital Signs (last 24 hours): Temp Pulse Resp BP Pulse Ox 98.1 F 115 H 24 108/40 L 94 L 03/05/19 08:00 03/05/19 08:00 03/05/19 08:00 03/05/19 08:00 03/05/19 08:00 Intake and Output: 03/04/19 03/05/19 23:59 11:59 Intake Total 1851.8 1100 Output Total 55 10 Balance 1796.8 1090 - Medications Medications: Current Medications Acetaminophen (Tylenol 650mg/20.3ml Solution Ud) 640 mg PO Q6 PRN PRN Reason: FEVER>100.4F Last Admin: 03/04/19 16:41 Dose: 640 mg Baclofen (Lioresal) 10 mg PO DAILY ARTEMIO Last Admin: 03/01/19 08:59 Dose: 10 mg Enoxaparin Sodium (Lovenox) 40 mg SC DAILY ARTEMIO; Protocol Last Admin: 03/04/19 08:05 Dose: 40 mg Furosemide (Lasix) 40 mg IV ONCE ARTEMIO Last Admin: 03/04/19 13:23 Dose: 40 mg Guaifenesin/Dextromethorphan (Robitussin Dm) 10 ml PO Q6 PRN PRN Reason: Cough Last Admin: 02/28/19 17:57 Dose: 10 ml Hydrocortisone Sodium Succinate (Solu-Cortef) 100 mg IVP Q8 ARTEMIO Last Admin: 03/05/19 01:29 Dose: 100 mg Hydroxychloroquine Sulfate (Plaquenil) 200 mg PO DAILY ARTEMIO; Protocol Last Admin: 03/01/19 08:54 Dose: 200 mg Trimethoprim/Sulfamethoxazole (300 mg/ Dextrose) 500 mls @ 250 mls/hr IVPB Q8@0700,1500,2300 [facility]; Protocol Last Admin: 03/05/19 06:19 Dose: 250 mls/hr Norepinephrine Bitartrate 16 (mg/ Dextrose) 266 mls @ 19.95 mls/hr IV .[id number] ONE; Protocol Stop: 03/05/19 09:40 Last Titration: 03/05/19 04:06 Dose: 22.5 mcg/min, 22.44 mls/hr Phenylephrine HCl 30 mg/ (Sodium Chloride) 253 mls @ 25.3 mls/hr IV .Q10H ARTEMIO; Protocol Stop: 03/05/19 22:51 Last Admin: 03/04/19 23:30 Dose: 50 mcg/min, 25.3 mls/hr Insulin Human Regular (Humulin R) 0 units SC ACHS ARTEMIO; Protocol Last Admin: 03/05/19 06:52 Dose: Not Given Ipratropium [place] (Atrovent) 0.5 mg IH RQ6 ARTEMIO Last Admin: 03/05/19 07:07 Dose: 0.5 mg Lactulose (Enulose) 20 gm PO Q4 ARTEMIO Last Admin: 03/05/19 04:19 Dose: 20 gm Levalbuterol HCl (Xopenex) 1.25 mg INH RQ4 PRN PRN Reason: Shortness of Breath Last Admin: 02/28/19 18:11 Dose: 1.25 mg Lidocaine (Lidoderm) 2 ea TD DAILY ARTEMIO Last Admin: 03/04/19 11:42 Dose: Not Given Meclizine HCl (Antivert) 12.5 mg PO BID ARTEMIO Last Admin: 03/01/19 16:48 Dose: Not Given Pantoprazole Sodium (Protonix Inj) 40 mg IVP DAILY ARTEMIO Last Admin: 03/04/19 08:15 Dose: 40 mg Tamsulosin HCl (Flomax) 0.4 mg PO Q12 [facility] Last Admin: 03/01/19 20:11 Dose: Not Given Temazepam (Restoril) 15 mg PO HS PRN PRN Reason: Insomnia Last Admin: 02/28/19 08:59 Dose: 15 mg Verapamil HCl (Calan Tab) 80 mg PO Q8H [facility] Last Admin: 03/02/19 03:00 Dose: Not Given - Labs Labs: 03/05/19 04:45 03/05/19 04:45 PT 12.8 Seconds (9.8-13.1) 03/01/19 16:40 INR 1.1 03/01/19 16:40 APTT 44.5 Seconds (25.6-37.1) H 03/01/19 16:40 Assessment and Plan (1) Pneumonia Status: Acute (2) Acute on chronic respiratory failure with hypoxemia Status: Chronic (3) Hypercapnic respiratory failure Status: Chronic (4) Mucus plugging of bronchi Status: Suspected
[2019-03-05] MEDS: Lidocaine 5% Patch TD SCH (10:19)
[2019-03-05] MEDS: Phenylephrine 30 MG in Sodium Chloride 0.9% 250 ML IV SCH ×3 (10:22→18:06)
[2019-03-05] MEDS: Enoxaparin 40 mg Syringe SC SCH (10:22)
--- NOTE | 2019-03-05 11:55 | CP.PCM.PN ---
Subjective - Date & Time of Evaluation Date of Evaluation: 03/05/19 Time of Evaluation: 11:55 - Subjective Subjective: ID note- Patient seen and examined today in ICU. remains intubated and on pressors. Objective - Vital Signs/Intake and Output Vital Signs (last 24 hours): Temp Pulse Resp BP Pulse Ox 98.1 F 115 H 24 108/40 L 94 L 03/05/19 08:00 03/05/19 08:00 03/05/19 08:00 03/05/19 08:00 03/05/19 08:00 Intake and Output: 03/05/19 03/05/19 06:59 18:59 Intake Total 1420 609 Output Total 15 Balance 1405 609 - Medications Medications: Current Medications Acetaminophen (Tylenol 650mg/20.3ml Solution Ud) 640 mg PO Q6 PRN PRN Reason: FEVER>100.4F Last Admin: 03/04/19 16:41 Dose: 640 mg Baclofen (Lioresal) 10 mg PO DAILY [facility] Last Admin: 03/01/19 08:59 Dose: 10 mg Enoxaparin Sodium (Lovenox) 40 mg SC DAILY [facility]; Protocol Last Admin: 03/05/19 10:22 Dose: 40 mg Furosemide (Lasix) 40 mg IV ONCE [facility] Last Admin: 03/04/19 13:23 Dose: 40 mg Guaifenesin/Dextromethorphan (Robitussin Dm) 10 ml PO Q6 PRN PRN Reason: Cough Last Admin: 02/28/19 17:57 Dose: 10 ml Hydrocortisone Sodium Succinate (Solu-Cortef) 100 mg IVP Q8 [facility] Last Admin: 03/05/19 08:15 Dose: 100 mg Hydroxychloroquine Sulfate (Plaquenil) 200 mg PO DAILY [facility]; Protocol Last Admin: 03/01/19 08:54 Dose: 200 mg Trimethoprim/Sulfamethoxazole (300 mg/ Dextrose) 500 mls @ 250 mls/hr IVPB Q8@0700,1500,2300 [facility]; Protocol Last Admin: 03/05/19 06:19 Dose: 250 mls/hr Phenylephrine HCl 30 mg/ (Sodium Chloride) 253 mls @ 25.3 mls/hr IV .Q10H [facility]; Protocol Stop: 03/05/19 22:51 Last Admin: 03/05/19 10:22 Dose: 50 mcg/min, 25.3 mls/hr Insulin Human Regular (Humulin R) 0 units SC ACHS [facility]; Protocol Last Admin: 03/05/19 11:53 Dose: Not Given Ipratropium [place] (Atrovent) 0.5 mg IH RQ6 [facility] Last Admin: 03/05/19 07:07 Dose: 0.5 mg Lactulose (Enulose) 20 gm PO Q4 [facility] Last Admin: 03/05/19 08:15 Dose: 20 gm Levalbuterol HCl (Xopenex) 1.25 mg INH RQ4 PRN PRN Reason: Shortness of Breath Last Admin: 02/28/19 18:11 Dose: 1.25 mg Lidocaine (Lidoderm) 2 ea TD DAILY [facility] Last Admin: 03/05/19 10:19 Dose: Not Given Meclizine HCl (Antivert) 12.5 mg PO BID [facility] Last Admin: 03/01/19 16:48 Dose: Not Given Pantoprazole Sodium (Protonix Inj) 40 mg IVP DAILY [facility] Last Admin: 03/05/19 08:15 Dose: 40 mg Tamsulosin HCl (Flomax) 0.4 mg PO Q12 [facility] Last Admin: 03/01/19 20:11 Dose: Not Given Temazepam (Restoril) 15 mg PO HS PRN PRN Reason: Insomnia Last Admin: 02/28/19 08:59 Dose: 15 mg Verapamil HCl (Calan Tab) 80 mg PO Q8H [facility] Last Admin: 03/02/19 03:00 Dose: Not Given - Labs Labs: - Additional Findings Additional findings: - Constitutional Appears: Chronically Ill - Head Exam Head Exam: ATRAUMATIC - ENT Exam Additional comments: ET tube in place - Respiratory Exam Additional comments: decreased breath sounds bibasialr is on the vent - Cardiovascular Exam Cardiovascular Exam: Tachycardia, +S1, +S2 - GI/Abdominal Exam GI & Abdominal Exam: Soft, Normal Bowel Sounds Additional comments: ND, NT - Extremities Exam Extremities Exam: Normal Inspection - Neurological Exam Additional comments: not responsive today Laboratory Results - last 72 hr 03/02/19 03/02/19 03/02/19 14:51 15:12 15:12 WBC RBC Hgb Hct MCV MCH MCHC RDW Plt Count MPV Neut % (Auto) Lymph % (Auto) Menard % (Auto) Eos % (Auto) Baso % (Auto) Neut # (Auto) Lymph # (Auto) Menard # (Auto) Eos # (Auto) Baso # (Auto) pCO2 pO2 HCO3 ABG pH ABG Total CO2 ABG O2 Saturation ABG O2 Content ABG Base Excess ABG Hemoglobin ABG Carboxyhemoglobin POC ABG HHb (Measured) ABG Methemoglobin ABG O2 Capacity Isacc Test ABG Potassium A-a O2 Difference Hgb O2 Saturation Glucose Lactate Vent Mode Mechanical Rate FiO2 Tidal Volume PEEP Crit Value Called To Crit Value Called By Crit Value Read Back Blood Gas Notified Time Sodium Potassium Chloride Carbon Dioxide Anion Gap BUN Creatinine Est GFR ( Amer) Est GFR (Non-Af Amer) POC Glucose (mg/dL) Random Glucose Serum Osmolality 261 L Calcium Phosphorus Magnesium Total Bilirubin AST ALT Alkaline Phosphatase Total Protein Albumin Globulin Albumin/Globulin Ratio Procalcitonin Arterial Blood Potassium Urine Osmolality 267 L Ur Random Creatinine 30.1 Ur Random Sodium 42 Ur Random Potassium 20.6 03/02/19 03/02/19 03/02/19 16:28 18:17 20:40 WBC RBC Hgb Hct MCV MCH MCHC RDW Plt Count MPV Neut % (Auto) Lymph % (Auto) Menard % (Auto) Eos % (Auto) Baso % (Auto) Neut # (Auto) Lymph # (Auto) Menard # (Auto) Eos # (Auto) Baso # (Auto) pCO2 pO2 HCO3 ABG pH ABG Total CO2 ABG O2 Saturation ABG O2 Content ABG Base Excess ABG Hemoglobin ABG Carboxyhemoglobin POC ABG HHb (Measured) ABG Methemoglobin ABG O2 Capacity Isacc Test ABG Potassium A-a O2 Difference Hgb O2 Saturation Glucose Lactate Vent Mode Mechanical Rate FiO2 Tidal Volume PEEP Crit Value Called To Crit Value Called By Crit Value Read Back Blood Gas Notified Time Sodium Potassium Chloride Carbon Dioxide Anion Gap BUN Creatinine Est GFR ( Amer) Est GFR (Non-Af Amer) POC Glucose (mg/dL) 69 96 71 Random Glucose Serum Osmolality Calcium Phosphorus Magnesium Total Bilirubin AST ALT Alkaline Phosphatase Total Protein Albumin Globulin Albumin/Globulin Ratio Procalcitonin Arterial Blood Potassium Urine Osmolality Ur Random Creatinine Ur Random Sodium Ur Random Potassium 03/03/19 03/03/19 03/03/19 04:20 04:25 04:41 WBC 5.1 RBC 3.58 L Hgb 11.5 L Hct 34.8 L MCV 97.1 H MCH 32.1 H MCHC 33.0 RDW 19.5 H Plt Count 72 L MPV 11.1 Neut % (Auto) 80.8 H Lymph % (Auto) 8.9 L Menard % (Auto) 10.0 Eos % (Auto) 0.1 Baso % (Auto) 0.2 Neut # (Auto) 4.1 Lymph # (Auto) 0.5 L Menard # (Auto) 0.5 Eos # (Auto) 0.0 Baso # (Auto) 0.0 pCO2 61 H pO2 87 HCO3 16.6 L ABG pH 7.11 L* ABG Total CO2 21.3 L ABG O2 Saturation 97.6 ABG O2 Content 17.1 ABG Base Excess -10.6 L ABG Hemoglobin 12.9 ABG Carboxyhemoglobin 1.7 H POC ABG HHb (Measured) 2.3 ABG Methemoglobin 2.2 ABG O2 Capacity 17.5 Isacc Test Yes ABG Potassium A-a O2 Difference 443.0 Hgb O2 Saturation 93.8 L Glucose Lactate Vent Mode A/c Mechanical Rate 12 FiO2 85.0 Tidal Volume 400 PEEP 3 Crit Value Called To Roddy dalton Crit Value Called By Rogelio Crit Value Read Back Y Blood Gas Notified Time 428 Sodium Potassium Chloride Carbon Dioxide Anion Gap BUN Creatinine Est GFR ( Amer) Est GFR (Non-Af Amer) POC Glucose (mg/dL) 117 H Random Glucose Serum Osmolality Calcium Phosphorus Magnesium Total Bilirubin AST ALT Alkaline Phosphatase Total Protein Albumin Globulin Albumin/Globulin Ratio Procalcitonin Arterial Blood Potassium Urine Osmolality Ur Random Creatinine Ur Random Sodium Ur Random Potassium 03/03/19 03/03/19 03/03/19 04:41 04:41 07:35 WBC RBC Hgb Hct MCV MCH MCHC RDW Plt Count MPV Neut % (Auto) Lymph % (Auto) Menard % (Auto) Eos % (Auto) Baso % (Auto) Neut # (Auto) Lymph # (Auto) Menard # (Auto) Eos # (Auto) Baso # (Auto) pCO2 50 H pO2 84 HCO3 18.3 L ABG pH 7.20 L ABG Total CO2 21.0 L ABG O2 Saturation 97.9 ABG O2 Content ABG Base Excess -8.5 L ABG Hemoglobin ABG Carboxyhemoglobin POC ABG HHb (Measured) ABG Methemoglobin ABG O2 Capacity Isacc Test Yes ABG Potassium 4.7 A-a O2 Difference 460.0 Hgb O2 Saturation Glucose 165 H Lactate 2.0 Vent Mode A/c pc Mechanical Rate 20 FiO2 85.0 Tidal Volume 400 PEEP 3 Crit Value Called To Melo monreal rn Crit Value Called By 15 Crit Value Read Back Y Blood Gas Notified Time 841 Sodium 120 L* 116.0 L* Potassium 5.6 H Chloride 88 L 90.0 L Carbon Dioxide 19 L Anion Gap 19 BUN 26 H Creatinine 2.1 H Est GFR ( Amer) 37 Est GFR (Non-Af Amer) 31 POC Glucose (mg/dL) Random Glucose 104 Serum Osmolality Calcium 8.1 L Phosphorus 4.5 Magnesium 1.7 Total Bilirubin 0.7 AST 543 H D ALT 725 H D Alkaline Phosphatase 199 H Total Protein 4.9 L Albumin 2.4 L Globulin 2.5 Albumin/Globulin Ratio 1.0 Procalcitonin 19.85 H Arterial Blood Potassium 4.7 Urine Osmolality Ur Random Creatinine Ur Random Sodium Ur Random Potassium 03/03/19 03/03/19 03/03/19 11:38 16:07 21:04 WBC RBC Hgb Hct MCV MCH MCHC RDW Plt Count MPV Neut % (Auto) Lymph % (Auto) Menard % (Auto) Eos % (Auto) Baso % (Auto) Neut # (Auto) Lymph # (Auto) Menard # (Auto) Eos # (Auto) Baso # (Auto) pCO2 pO2 HCO3 ABG pH ABG Total CO2 ABG O2 Saturation ABG O2 Content ABG Base Excess ABG Hemoglobin ABG Carboxyhemoglobin POC ABG HHb (Measured) ABG Methemoglobin ABG O2 Capacity Isacc Test ABG Potassium A-a O2 Difference Hgb O2 Saturation Glucose Lactate Vent Mode Mechanical Rate FiO2 Tidal Volume PEEP Crit Value Called To Crit Value Called By Crit Value Read Back Blood Gas Notified Time Sodium Potassium Chloride Carbon Dioxide Anion Gap BUN Creatinine Est GFR ( Amer) Est GFR (Non-Af Amer) POC Glucose (mg/dL) 160 H 184 H 141 H Random Glucose Serum Osmolality Calcium Phosphorus Magnesium Total Bilirubin AST ALT Alkaline Phosphatase Total Protein Albumin Globulin Albumin/Globulin Ratio Procalcitonin Arterial Blood Potassium Urine Osmolality Ur Random Creatinine Ur Random Sodium Ur Random Potassium 03/03/19 03/04/19 03/04/19 22:15 04:29 04:30 WBC 3.0 L RBC 3.37 L Hgb 10.8 L Hct 32.9 L MCV 97.5 H MCH 32.0 H MCHC 32.9 L RDW 19.0 H Plt Count 66 L MPV Neut % (Auto) Lymph % (Auto) Menard % (Auto) Eos % (Auto) Baso % (Auto) Neut # (Auto) Lymph # (Auto) Menard # (Auto) Eos # (Auto) Baso # (Auto) pCO2 pO2 HCO3 ABG pH ABG Total CO2 ABG O2 Saturation ABG O2 Content ABG Base Excess ABG Hemoglobin ABG Carboxyhemoglobin POC ABG HHb (Measured) ABG Methemoglobin ABG O2 Capacity Isacc Test ABG Potassium A-a O2 Difference Hgb O2 Saturation Glucose Lactate Vent Mode Mechanical Rate FiO2 Tidal Volume PEEP Crit Value Called To Crit Value Called By Crit Value Read Back Blood Gas Notified Time Sodium 122 L Potassium 4.1 Chloride 92 L Carbon Dioxide 16 L Anion Gap 18 BUN 34 H Creatinine 2.3 H Est GFR ( Amer) 34 Est GFR (Non-Af Amer) 28 POC Glucose (mg/dL) 146 H Random Glucose 119 H Serum Osmolality Calcium 8.0 L Phosphorus Magnesium Total Bilirubin AST ALT Alkaline Phosphatase Total Protein Albumin Globulin Albumin/Globulin Ratio Procalcitonin Arterial Blood Potassium Urine Osmolality Ur Random Creatinine Ur Random Sodium Ur Random Potassium 03/04/19 03/04/19 03/04/19 04:30 05:11 11:14 WBC RBC Hgb Hct MCV MCH MCHC RDW Plt Count MPV Neut % (Auto) Lymph % (Auto) Menard % (Auto) Eos % (Auto) Baso % (Auto) Neut # (Auto) Lymph # (Auto) Menard # (Auto) Eos # (Auto) Baso # (Auto) pCO2 55 H pO2 104 H HCO3 13.9 L ABG pH 7.07 L* ABG Total CO2 17.6 L ABG O2 Saturation 99.0 H ABG O2 Content 15.1 ABG Base Excess -14.1 L ABG Hemoglobin 11.1 L ABG Carboxyhemoglobin 1.4 POC ABG HHb (Measured) 1.0 ABG Methemoglobin 1.8 ABG O2 Capacity 15.3 L Isacc Test Yes ABG Potassium A-a O2 Difference 433.0 Hgb O2 Saturation 95.8 Glucose Lactate Vent Mode A/c Mechanical Rate 20 FiO2 85.0 Tidal Volume 400 PEEP 3 Crit Value Called To Dr marina reed Crit Value Called By Rogelio Crit Value Read Back Y Blood Gas Notified Time 519 Sodium 122 L Potassium 4.0 Chloride 93 L Carbon Dioxide 16 L Anion Gap 17 BUN 36 H Creatinine 2.4 H Est GFR ( Amer) 32 Est GFR (Non-Af Amer) 27 POC Glucose (mg/dL) 185 H Random Glucose 140 H Serum Osmolality Calcium 8.0 L Phosphorus Magnesium Total Bilirubin 0.7 AST 210 H D ALT 430 H D Alkaline Phosphatase 380 H D Total Protein 4.7 L Albumin 2.3 L Globulin 2.4 Albumin/Globulin Ratio 1.0 Procalcitonin Arterial Blood Potassium Urine Osmolality Ur Random Creatinine Ur Random Sodium Ur Random Potassium 03/04/19 03/04/19 03/05/19 16:15 21:37 04:43 WBC RBC Hgb Hct MCV MCH MCHC RDW Plt Count MPV Neut % (Auto) Lymph % (Auto) Menard % (Auto) Eos % (Auto) Baso % (Auto) Neut # (Auto) Lymph # (Auto) Menard # (Auto) Eos # (Auto) Baso # (Auto) pCO2 pO2 HCO3 ABG pH ABG Total CO2 ABG O2 Saturation ABG O2 Content ABG Base Excess ABG Hemoglobin ABG Carboxyhemoglobin POC ABG HHb (Measured) ABG Methemoglobin ABG O2 Capacity Isacc Test ABG Potassium A-a O2 Difference Hgb O2 Saturation Glucose Lactate Vent Mode Mechanical Rate FiO2 Tidal Volume PEEP Crit Value Called To Crit Value Called By Crit Value Read Back Blood Gas Notified Time Sodium Potassium Chloride Carbon Dioxide Anion Gap BUN Creatinine Est GFR ( Amer) Est GFR (Non-Af Amer) POC Glucose (mg/dL) 173 H 131 H 107 Random Glucose Serum Osmolality Calcium Phosphorus Magnesium Total Bilirubin AST ALT Alkaline Phosphatase Total Protein Albumin Globulin Albumin/Globulin Ratio Procalcitonin Arterial Blood Potassium Urine Osmolality Ur Random Creatinine Ur Random Sodium Ur Random Potassium 03/05/19 03/05/19 03/05/19 04:45 04:45 05:04 WBC 3.6 L RBC 3.50 L Hgb 11.0 L Hct 34.5 L MCV 98.7 H MCH 31.4 H MCHC 31.8 L RDW 19.8 H Plt Count 71 L MPV Neut % (Auto) Lymph % (Auto) Menard % (Auto) Eos % (Auto) Baso % (Auto) Neut # (Auto) Lymph # (Auto) Menard # (Auto) Eos # (Auto) Baso # (Auto) pCO2 71 H* pO2 141 H HCO3 12.6 L ABG pH 6.97 L* ABG Total CO2 18.5 L ABG O2 Saturation 99.6 H ABG O2 Content 15.3 ABG Base Excess -15.8 L ABG Hemoglobin 11.2 L ABG Carboxyhemoglobin 1.7 H POC ABG HHb (Measured) 0.4 ABG Methemoglobin 2.2 ABG O2 Capacity 15.4 L Isacc Test Yes ABG Potassium A-a O2 Difference 376.0 Hgb O2 Saturation 95.7 Glucose Lactate Vent Mode A/c Mechanical Rate 24 FiO2 85.0 Tidal Volume 400 PEEP 3 Crit Value Called To Roddy arana Crit Value Called By 292 Crit Value Read Back Y Blood Gas Notified Time 510 Sodium 125 L Potassium 3.8 Chloride 93 L Carbon Dioxide 16 L Anion Gap 20 BUN 41 H Creatinine 2.7 H Est GFR ( Amer) 28 Est GFR (Non-Af Amer) 23 POC Glucose (mg/dL) Random Glucose 102 Serum Osmolality Calcium 7.9 L Phosphorus Magnesium Total Bilirubin AST ALT Alkaline Phosphatase Total Protein Albumin Globulin Albumin/Globulin Ratio Procalcitonin Arterial Blood Potassium Urine Osmolality Ur Random Creatinine Ur Random Sodium Ur Random Potassium 03/05/19 11:18 WBC RBC Hgb Hct MCV MCH MCHC RDW Plt Count MPV Neut % (Auto) Lymph % (Auto) Menard % (Auto) Eos % (Auto) Baso % (Auto) Neut # (Auto) Lymph # (Auto) Menard # (Auto) Eos # (Auto) Baso # (Auto) pCO2 pO2 HCO3 ABG pH ABG Total CO2 ABG O2 Saturation ABG O2 Content ABG Base Excess ABG Hemoglobin ABG Carboxyhemoglobin POC ABG HHb (Measured) ABG Methemoglobin ABG O2 Capacity Isacc Test ABG Potassium A-a O2 Difference Hgb O2 Saturation Glucose Lactate Vent Mode Mechanical Rate FiO2 Tidal Volume PEEP Crit Value Called To Crit Value Called By Crit Value Read Back Blood Gas Notified Time Sodium Potassium Chloride Carbon Dioxide Anion Gap BUN Creatinine Est GFR ( Amer) Est GFR (Non-Af Amer) POC Glucose (mg/dL) 134 H Random Glucose Serum Osmolality Calcium Phosphorus Magnesium Total Bilirubin AST ALT Alkaline Phosphatase Total Protein Albumin Globulin Albumin/Globulin Ratio Procalcitonin Arterial Blood Potassium Urine Osmolality Ur Random Creatinine Ur Random Sodium Ur Random Potassium Microbiology 03/02/19 15:30 Blood Blood Culture - Preliminary NO GROWTH AFTER 48 HOURS 03/02/19 15:10 Blood-Venous Blood Culture - Preliminary NO GROWTH AFTER 48 HOURS 03/02/19 15:46 Trachasp Gram Stain - Final 03/02/19 15:46 Trachasp Sputum Culture - Final Yeast Species 03/02/19 17:20 Urine,Finn Urine Culture - Final No Growth (<1,000 CFU/ML) 03/01/19 14:00 Nose MRSA Culture (Admit) - Final MRSA NOT DETECTED 02/15/19 10:20 Other: Please Indicate Mycobacterial Culture - Preliminary 02/20/19 18:28 Sputum Gram Stain - Final 02/20/19 18:28 Sputum Sputum Culture - Final Stenotrophomonas Maltophilia 02/22/19 18:11 Naris MRSA Culture (Admit) - Final MRSA NOT DETECTED 02/15/19 10:20 Bronchial Washings Fungal Culture - Final Emile Glabrata 02/17/19 01:05 Sputum Gram Stain - Final 02/17/19 01:05 Sputum Sputum Culture - Final NORMAL ORAL KRISS 02/11/19 07:09 Naris MRSA Culture (Admit) - Final MRSA NOT DETECTED 02/09/19 19:00 Naris MRSA Culture (Admit) - Final MRSA NOT DETECTED 02/03/19 19:35 Blood-Venous Blood Culture - Final NO GROWTH AFTER 5 DAYS 02/03/19 19:35 Blood-Venous Gram Stain - Final TEST NOT PERFORMED 02/03/19 19:35 Blood-Venous Blood Culture - Final NO GROWTH AFTER 5 DAYS 02/03/19 19:35 Blood-Venous Gram Stain - Final TEST NOT PERFORMED 02/03/19 08:00 Sputum Gram Stain - Final 02/03/19 08:00 Sputum Sputum Culture - Final NORMAL ORAL KRISS 02/04/19 06:03 Naris MRSA Culture (Admit) - Final MRSA NOT DETECTED 02/03/19 20:50 Urine,Clean Catch Urine Culture - Final No Growth (<1,000 CFU/ML) Accession No. : [id number] Patient Name / ID : PURNIMA Poole / [id number] Exam Date : 03/05/2019 04:49:17 ( Approved ) Study Comment : Sex / Age : M / 73Y Creator : Ulises Garcia MD Dictator : Ulises Garcia MD Entertainer Or Variety Artist : Oracle Programmer : Ulises Garcia MD Approver2 : Report Date : 03/05/2019 07:34:54 My Comment : Date of service: 03/05/2019 HISTORY: Mechanically ventilated. COMPARISON: Portable chest 02/24/2019, 4:20 a.m.. TECHNIQUE: 1 view obtained. FINDINGS: LUNGS: Endotracheal and orogastric tubes are unchanged in position once again. Persistent airspace disease occupies the mid to inferior right lung zone and has increased limited retrocardiac airspace disease in the left lower lobe. Linear atelectasis is increased at the left base laterally. PLEURA: Right pleural effusion likely. Small pleural effusion not excluded once again. CARDIOVASCULAR: Calcific atherosclerotic changes are seen related to the thoracic aorta. Silhouette obscured as well as right hilar vascular markings. Left hilar vascular markings do not appear significantly increased and no reticular changes are seen in the interstitium to suggest pulmonary vascular congestion/CHF. OSSEOUS STRUCTURES: Upper thoracic spinal fusion hardware reiterated. VISUALIZED UPPER ABDOMEN: Normal. OTHER FINDINGS: None. IMPRESSION: Interval worsening of right pleural effusion with near complete opacification of the right hemithorax. Infiltrate is unchanged at the right chest and may have increased as well. Persistent left lower lobe infiltrate with linear atelectasis increased at the left base. Assessment and Plan (1) COPD exacerbation Status: Acute (2) HCAP (healthcare-associated pneumonia) Status: Acute (3) Paroxysmal atrial fibrillation with rapid ventricular response Status: Acute (4) CHF (congestive heart failure) Status: Acute (5) COPD (chronic obstructive pulmonary disease) Status: Chronic (6) Acute respiratory failure with hypoxia and hypercarbia Status: Acute - Assessment and Plan (Free Text) Assessment: A/P- 73 year old male with h/o RA on streoids and Plaquenil, COPD, admitted with copd exacerbation, hypercapneic resp faillure and zoster on abdomen . zoster has resolved , had completed course of acyclovir as per Primary doc. s/p bronch a week ago which as per debubblizer had shown thick purulent fluid and being treated for stenotrophomonas and was on 10 days of meropnem for HAP and 10 days of fluconazole for emile in BAL cx. s/p code yesterday and intubated and now in ICU again. remains Intubated and on 2 pressors worsening renal function. 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 trach as p cx- yeast ( he was already treated with 10 days of fluconazole) Plan- Continue with IV bactrim for stenotrophomonas in sputum cx. day #10 advise 4 more days of bactrim. will resume meropenem again since pt. could have aspirated and with his chronic pulmonary issues advise to be on broad spectrum coverage. advise to start diflucan since C. glabrata rarely can be resistant to fluconazole and Micro lab had s not done sensitivity testing. all labs and imaging and chart notes reviewed. Critical care time spent 40 minutes. prognosis poor.
[2019-03-05] MEDS ORDERED: Meropenem 500 MG in Sodium Chloride 0.9% 100 ML IVPB SCH ×2 (12:00→17:00)
[2019-03-05] MEDS ORDERED: Levalbuterol 1.25 MG/3 ML Inhal Soln UD INH PRN (15:06)
[2019-03-05] MEDS ORDERED: guaiFENesin DM 200 mg-20 mg/10 ml UD PO PRN (15:06)
[2019-03-05] MEDS ORDERED: Potassium Chloride 20 mEq 100 ML IVPB ONE (15:09)
[2019-03-05] MEDS ORDERED: Magnesium Sulfate 1 gm in D5W 1 GM/100 ML BAG IVPB ONE (15:30)
--- NOTE | 2019-03-05 16:13 | PN ---
DATE: 03/05/2019 SUBJECTIVE: The patient is unresponsive on the ventilator. Still on phenylephrine drip at 50 mcg/min. He is in sinus tachycardia with frequent APCs. PHYSICAL EXAMINATION VITAL SIGNS: Blood pressure 133/55, heart rate 123, temperature 98.8, and respirations 27. HEENT: Facial edema. CHEST: Diffuse bilateral rhonchi. HEART: S1 and S2, regular. EXTREMITIES: 2+ arm edema. LABORATORY DATA: Today's hemoglobin and hematocrit 11 and 34.5, white count 3.6, platelet count 72,100. Today's SMA-7: Sodium 125, potassium 3.8, chloride 93, CO2 of 16, glucose 102, BUN 41, creatinine 2.7. Today's calcium is 7.9 Today's chest x-ray report, interval worsening of the right pleural effusion with near complete opacification of the right mid thorax. Infiltrate is unchanged at the right chest and may have increased as well. Persistent left lower lobe infiltrate with linear atelectasis increased at the left base. ASSESSMENT: 1. Respiratory failure. 2. Septic shock. 3. Bilateral pneumonia and bilateral pleural effusion. 4. Acute renal failure. 5. Hyponatremia and hypocalcemia. 6. History of recent paroxysmal atrial fibrillation and atrial flutter and history of recent multifocal atrial tachycardia. RECOMMENDATIONS: Continue current phenylephrine infusion. Continue Lovenox 40 mg subcutaneous once a day, IV meropenem at 500 mg every 8 hours, IV Bactrim at 300 mg every 8 hours. Prognosis is very poor. Geo Whitmore MD
[2019-03-05] MEDS ORDERED: Insulin Regular 100 units/ml SC SCH (16:30)
[2019-03-05] MEDS ORDERED: Ipratropium 0.02% Inhal Soln (0.5 mg/2.5 ml) UD IH SCH (20:00)
[2019-03-05 20:45] VITALS: RESP 21
[2019-03-05 21:39] VITALS: BP 27/19
--- NOTE | 2019-03-05 22:11 | PN ---
DATE: 03/05/2019 DAILY PROGRESS NOTE SUBJECTIVE: Still the patient is on ventilator, and he is unresponsive with absent reflexes. PHYSICAL EXAMINATION: VITAL SIGNS: Blood pressure 104/48, temperature 99.5, respiratory rate 25. The patient is on two vasopressors. HEENT: Absent corneal reflexes and no pupillary reflexes. LUNGS: Bilateral symmetrical expansion. Equal air entry both lungs with few basal rales. CARDIOVASCULAR SYSTEM: PMI not localized. S1, S2. No additional sounds. ABDOMEN: Decrease bowel sounds. No organomegaly. No masses. EXTREMITIES: No cyanosis. No clubbing. No edema. CENTRAL NERVOUS SYSTEM: The patient is deeply comatose, unresponsive, on ventilator with absent brainstem function. ASSESSMENT: 1. 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 2. Hypercapnic respiratory failure. 3. Pneumonia. PLAN: Discuss the patient condition with and son today who expressed that they would like to stop first the supporting intravenous medications and will consider terminal extubation given the loss of the brainstem function and anoxic encephalopathy. Michaela Wood MD
--- NOTE | 2019-03-05 22:23 | CP.PCM.PRO ---
Pronouncement of Note - Clinical Findings Physical Exam: No Response Verbal/Painful Stimuli, Absent Peripheral Puls es{Carotid & Femoral}, Absent Heart & Breath Sounds, No Pupillary Light Reflex, Pupils Fixed & Dilated, Absence of Vital Signs - Pronouncement Time Time of Pronouncement of : 22:11 - Notifications Pronouncement Notifications: Family Notified Horse Shoer Notified: No - Autopsy Autopsy Requested: No - [place] [id number]
[2019-03-05] MEDS ORDERED: Sulfamethoxazole/Trimethoprim 300 MG in Dextrose 5% In Water 500 ML IVPB SCH (23:00)
[2019-03-05 23:06] VITALS: PULSE 0; TEMP 100.6; O2SAT 30
[2019-03-06] MEDS ORDERED: Enoxaparin 40 mg Syringe SC SCH (09:00)
[2019-03-06] MEDS ORDERED: Lidocaine 5% Patch TD SCH (09:00)
--- NOTE | 2019-03-06 21:52 | CP.PCM.PN ---
Subjective - Date & Time of Evaluation Date of Evaluation: 03/05/19 Time of Evaluation: 12:00 - Subjective Subjective: Vented Objective - Vital Signs/Intake and Output Vital Signs (last 24 hours): Temp Pulse Resp BP Pulse Ox 100.6 F H 0 L L 30 L 03/05/19 22:00 03/05/19 22:00 03/05/19 19:45 03/05/19 21:00 03/05/19 22:00 - Labs Labs: 03/05/19 04:45 03/05/19 04:45 PT 12.8 Seconds (9.8-13.1) 03/01/19 16:40 INR 1.1 03/01/19 16:40 APTT 44.5 Seconds (25.6-37.1) H 03/01/19 16:40 - Head Exam Head Exam: ATRAUMATIC - Eye Exam Eye Exam: Normal appearance - ENT Exam ENT Exam: Mucous Membranes Dry - Respiratory Exam Respiratory Exam: Decreased Breath Sounds - Cardiovascular Exam Cardiovascular Exam: +S1, +S2 - GI/Abdominal Exam GI & Abdominal Exam: Normal Bowel Sounds Assessment and Plan (1) Pancytopenia Assessment & Plan: prior improvement in cytopenias when holding hydroxychloroquine; held WBC and H/H improved, plt improved normal iron/b12/folate stores transfusion support PRN Status: Acute (2) Pancreatic mass Assessment & Plan: prior elevation in chromogranin A level; repeated ?neuroendocrine tumor not a good surgical candidate, will cont. to monitor Status: Acute
== END 2019-03-05 23:50 | DRG 870 ==
LOC: H.ER 19:05 → H.ERHOLD 21:31 → H.ICU/CCU 02-04 00:35 → H.TEL 02-09 18:07 → H.ICU/CCU 02-11 15:08 → H.TEL 02-22 18:12 → H.ICU/CCU 03-01 14:18
PROVIDERS: ADMIT Internal Medicine; ATTEND Internal Medicine
PROC: 5A09557 Assistance with Respiratory Ventilation, Greater than 96 Consecutive Hours, Continuous Positive Airway Pressure (ICD-10-PCS; 2019-02-04)
PROC: 0BC68ZZ Extirpation of Matter from Right Lower Lobe Bronchus, Via Natural or Artificial Opening Endoscopic (ICD-10-PCS; 2019-02-15)
PROC: 0BC58ZZ Extirpation of Matter from Right Middle Lobe Bronchus, Via Natural or Artificial Opening Endoscopic (ICD-10-PCS; 2019-02-15)
PROC: 5A1955Z Respiratory Ventilation, Greater than 96 Consecutive Hours (ICD-10-PCS; principal; 2019-03-01)
PROC: 0BH17EZ Insertion of Endotracheal Airway into Trachea, Via Natural or Artificial Opening (ICD-10-PCS; 2019-03-01)
PROC: 04HY32Z Insertion of Monitoring Device into Lower Artery, Percutaneous Approach (ICD-10-PCS; 2019-03-01)
PROC: 30233N1 Transfusion of Nonautologous Red Blood Cells into Peripheral Vein, Percutaneous Approach (ICD-10-PCS; 2019-03-01)
PROC: 30233N1 Transfusion of Nonautologous Red Blood Cells into Peripheral Vein, Percutaneous Approach (ICD-10-PCS; 2019-03-02)
DX: A41.9 Sepsis, unspecified organism (principal); J96.21 Acute and chronic respiratory failure with hypoxia; I50.31 Acute diastolic (congestive) heart failure; J15.9 Unspecified bacterial pneumonia; G92 Toxic encephalopathy; J18.0 Bronchopneumonia, unspecified organism; J96.22 Acute and chronic respiratory failure with hypercapnia; R65.21 Severe sepsis with septic shock; B37.1 Pulmonary candidiasis; J44.0 Chronic obstructive pulmonary disease with (acute) lower respiratory infection; D61.818 Other pancytopenia; J96.12 Chronic respiratory failure with hypercapnia; J44.1 Chronic obstructive pulmonary disease with (acute) exacerbation; E87.1 Hypo-osmolality and hyponatremia; E87.2 Acidosis; G93.1 Anoxic brain damage, not elsewhere classified; I45.89 Other specified conduction disorders; I47.1 Supraventricular tachycardia; I48.92 Unspecified atrial flutter; I50.22 Chronic systolic (congestive) heart failure; J93.82 Other air leak; J98.11 Atelectasis; N17.9 Acute kidney failure, unspecified; T17.590A Other foreign object in bronchus causing asphyxiation, initial encounter; T17.890A Other foreign object in other parts of respiratory tract causing asphyxiation, initial encounter; Z99.11 Dependence on respirator [ventilator] status; Z99.81 Dependence on supplemental oxygen; B02.9 Zoster without complications; J84.10 Pulmonary fibrosis, unspecified; E11.9 Type 2 diabetes mellitus without complications; M05.142 Rheumatoid lung disease with rheumatoid arthritis of left hand; M05.141 Rheumatoid lung disease with rheumatoid arthritis of right hand; K86.9 Disease of pancreas, unspecified; D63.8 Anemia in other chronic diseases classified elsewhere; E78.00 Pure hypercholesterolemia, unspecified; E78.1 Pure hyperglyceridemia; E78.5 Hyperlipidemia, unspecified; E83.51 Hypocalcemia; E86.1 Hypovolemia; E87.5 Hyperkalemia; F02.80 Dementia in other diseases classified elsewhere, unspecified severity, without behavioral disturbance, psychotic disturbance, mood disturbance, and anxiety; Z87.891 Personal history of nicotine dependence; G30.9 Alzheimer's disease, unspecified; G47.33 Obstructive sleep apnea (adult) (pediatric); I11.0 Hypertensive heart disease with heart failure; I25.10 Atherosclerotic heart disease of native coronary artery without angina pectoris; I46.9 Cardiac arrest, cause unspecified; I48.0 Paroxysmal atrial fibrillation; K40.90 Unilateral inguinal hernia, without obstruction or gangrene, not specified as recurrent; K59.00 Constipation, unspecified; M06.9 Rheumatoid arthritis, unspecified; T38.0X5A Adverse effect of glucocorticoids and synthetic analogues, initial encounter; E11.65 Type 2 diabetes mellitus with hyperglycemia; Z66 Do not resuscitate; Z79.4 Long term (current) use of insulin; Z79.52 Long term (current) use of systemic steroids; Z87.01 Personal history of pneumonia (recurrent); Z95.1 Presence of aortocoronary bypass graft; Z95.5 Presence of coronary angioplasty implant and graft; Z99.3 Dependence on wheelchair; M46.90 Unspecified inflammatory spondylopathy, site unspecified; Z79.899 Other long term (current) drug therapy; R00.1 Bradycardia, unspecified